=== PATIENT | male | born 1960 | race Caucasian/White ===

== ENCOUNTER 2016-12-29 09:11 | Day surgery (SDC) | payer OTHER ==
[2016-12-23 11:25] VITALS: BMI 30.5
[2016-12-29 09:26] LABS: BASOPHIL 1.3 % (0-2.0); EOSINOPHIL 8.1 % (0-4.5); MCH 32.9 pg (25.7-33.7); MCHC 34.9 g/dl (32.0-35.9); MEAN CELL VOLUME 94.3 fl (80-96); NEUTROPHILS 44.6 % (42.8-82.8); PLATELET COUNT 184 K/MM3 (134-434); WHITE BLOOD COUNT 5.9 K/mm3 (4.0-10.0)
== END 2016-12-29 09:45 | disposition home or self-care (01) ==
LOC: JRADIR 09:11
PROVIDERS: ATTEND Surgery
PROC: 0BB48ZX Excision of Right Upper Lobe Bronchus, Via Natural or Artificial Opening Endoscopic, Diagnostic (ICD-10-PCS; principal; 2016-12-29)
DX: Z53.8 Procedure and treatment not carried out for other reasons (principal)
CPT/HCPCS: 36415; 85025; 85610

== ENCOUNTER 2017-01-29 08:18 | Day surgery (SDC) | payer OTHER ==
[2017-01-27 15:14] VITALS: BMI 29.5
[2017-01-29 09:13] LABS: INR 0.96 (0.82-1.09); PROTHROMBIN TIME (PATIENT) 10.9 SEC (9.98-11.88)
[2017-01-29 09:26] VITALS: TEMP 97.7
[2017-01-29 15:08] VITALS: BP 139/76; PULSE 85
== END 2017-01-29 15:51 | disposition home or self-care (01) ==
LOC: JRADIR 08:18
PROVIDERS: ATTEND Surgery
PROC: 0BBC3ZX Excision of Right Upper Lung Lobe, Percutaneous Approach, Diagnostic (ICD-10-PCS; principal; 2017-01-29)
DX: D38.1 Neoplasm of uncertain behavior of trachea, bronchus and lung (principal)
CPT/HCPCS: 36415; 71010-TC; 76098-TC; 77012-TC; 85610; 87899

== ENCOUNTER 2017-02-11 09:09 | Inpatient (IN) | payer OTHER ==
[2017-02-11 09:15] VITALS: BMI 27.8
--- NOTE | 2017-02-11 09:50 | PDOC ---
History of Present Illness <Kevin Cerrato - Last Filed: 02/11/17 11:17> - History of Present Illness Initial Comments: 02/11/17 10:14 The patient is a 56 year old male, current smoker, with a significant past medical history of Right lung CA (s/p biopsy with Dr. Gilmore last week), CAD s /p stents x2, hypertension, hyperlipidemia, gout, who presents to the emergency department for pre-operative admission after receiving a call from Dr. Gilmore instructing him to come to the ED. The patient reports increased cough and sputum production. He reports a pain to his throat and tongue. The patient had a PET Scan in July 2016 revealing a lesion to the left of his posterior oropharynx. As per Dr. Gilmore, the patient also had a recent liver ultrasound. He denies chest pain, shortness of breath, headache and dizziness. He denies fever, chills, nausea, vomit, diarrhea and constipation. He denies dysuria, frequency, urgency and hematuria. Allergies: NKDA Past surgical history: right THR, Right lung biopsy Social history: frequent ETOH, current tobacco use PCP: Dr. Naya Chiang <Fransisca Espinoza - Last Filed: 02/11/17 12:30> - General Chief Complaint: Respiratory Stated Complaint: PRE-OP Time Seen by Provider: 02/11/17 09:49 Past History - Past Medical History Cardiac Disorders: Yes (CAD) COPD: Yes GI Disorders: Yes (h/o GI Bleed) Disorders: No HTN: Yes Hypercholesterolemia: Yes Liver Disease: No Psychiatric Problems: Yes (DEPRESSION, ANXIETY) Thyroid Disease: No - Surgical History Cardiac Surgery: Yes (cardiac stents ~ 2015) Orthopedic Surgery: Yes (RIGHT HIP REPLACEMENT) - Suicide/Smoking/Psychosocial Hx Smoking History: Current every day smoker Have you smoked in the past 12 months: Yes Number of Cigarettes Smoked Daily: 6 If you are a former smoker, when did you quit?: 6 Information on smoking cessation initiated: Yes 'Breaking Loose' booklet given: 02/11/17 Hx Alcohol Use: Yes (SOCIAL) Drug/Substance Use Hx: No Substance Use Type: None <Kevin Cerrato - Last Filed: 02/11/17 11:17> <Fransisca Espinoza - Last Filed: 02/11/17 12:30> - Past Medical History Allergies/Adverse Reactions: Allergies Allergy/AdvReac Type Severity Reaction Status Date / Time No Known Drug Allergies Allergy Verified 02/11/17 09:15 Home Medications: Ambulatory Orders Amlodipine Besylate 10 mg PO DAILY 12/23/16 Atorvastatin Ca [Lipitor] 10 mg PO HS 12/23/16 Buspirone HCl 30 mg PO BID 12/23/16 Gabapentin 800 mg PO BID 12/23/16 Quetiapine Fumarate "Xr" [Seroquel Xr -] 300 mg PO ACDIN 12/23/16 Sertraline HCl [Zoloft] 200 mg PO ACDIN 12/23/16 Cholecalciferol (Vitamin D3) [Vitamin D3] 2,000 unit PO DAILY 01/02/17 Folic Acid 1 mg PO DAILY 01/02/17 Review of Systems - Review of Systems Able to Perform ROS?: Yes Comments:: 02/11/17 10:15 GENERAL/CONSTITUTIONAL: No fever or chills. No weakness. HEAD, EYES, EARS, NOSE AND THROAT: No change in vision. No ear pain or discharge. No sore throat. CARDIOVASCULAR: No chest pain or shortness of breath. RESPIRATORY: (+) increased cough ad sputum production, No Sob, wheezing, or hemoptysis. GASTROINTESTINAL: No nausea, vomiting, diarrhea or constipation. GENITOURINARY: No dysuria, frequency, or change in urination. MUSCULOSKELETAL: No joint or muscle swelling or pain. No neck or back pain. SKIN: No rash NEUROLOGIC: No headache, vertigo, loss of consciousness, or change in strength/ sensation. ENDOCRINE: No increased thirst. No abnormal weight change. HEMATOLOGIC/LYMPHATIC: No anemia, easy bleeding, or history of blood clots. ALLERGIC/IMMUNOLOGIC: No hives or skin allergy. <Fransisca Espinoza - Last Filed: 02/11/17 12:30> *Physical Exam - Vital Signs Last Vital Signs Temp Pulse Resp BP Pulse Ox 98.0 F 97 H 20 117/79 95 02/11/17 09:12 02/11/17 09:12 02/11/17 09:12 02/11/17 09:12 02/11/17 09:12 <Kevin Cerrato - Last Filed: 02/11/17 11:17> - Vital Signs Last Vital Signs Temp Pulse Resp BP Pulse Ox 98.0 F 97 H 20 117/79 95 02/11/17 09:12 02/11/17 09:12 02/11/17 09:12 02/11/17 09:12 02/11/17 09:12 - Physical Exam Comments: 02/11/17 10:28 GENERAL: Awake, alert, and fully oriented, in no acute distress HEAD: No signs of trauma EYES: PERRLA, EOMI, sclera anicteric, conjunctiva clear ENT: Auricles normal inspection, hearing grossly normal, nares patent, oropharynx clear without exudates. Moist mucosa NECK: Normal ROM, supple, no lymphadenopathy, JVD, or masses LUNGS: Breath sounds equal, clear to auscultation bilaterally. No wheezes, and no crackles HEART: Regular rate and rhythm, normal S1 and S2, no murmurs, rubs or gallops ABDOMEN: Soft, nontender, normoactive bowel sounds. No guarding, no rebound. No masses EXTREMITIES: Normal range of motion, no edema. No clubbing or cyanosis. No cords, erythema, or tenderness NEUROLOGICAL: Cranial nerves II through XII grossly intact. Normal speech, normal gait SKIN: Warm, Dry, normal turgor, no rashes or lesions noted. <Fransisca Espinoza - Last Filed: 02/11/17 12:30> Heart Score/ECG Review #1 ECG reviewed & interpreted by me at: 10:40 General ECG Interpretation: Sinus Rhythm, Normal Rate <Fransisca Espinoza - Last Filed: 02/11/17 12:30> ED Treatment Course - LABORATORY CBC & Chemistry Diagram: 02/11/17 10:24 02/11/17 10:24 <Kevin Cerrato - Last Filed: 02/11/17 11:17> - LABORATORY CBC & Chemistry Diagram: 02/11/17 10:24 02/11/17 10:24 - RADIOLOGY Radiograph Interpretation: EXAM#: TYPE/EXAM: RESULT: [id number] RAD/CHEST X-RAY PORTABLE* History of lung cancer Portable chest x-ray, AP sitting Since prior chest x-ray dated 01/29/2017, the cardiac silhouette remains within normal limits insize. A faint round masslike densities again seen in the right upper lobe compatible with previously described lesion on prior CT scan of the chest dated 02/09/2017. The rest of the lung is clear. Old right rib fractures again noted. IMPRESSION: No significant interval change or acute lung disease is present. Round opacity/mass in the right upper lobe again seen. Reported By: Loi Chawla MD 02/11/17 1049 <Fransisca Espinoza - Last Filed: 02/11/17 12:30> Medical Decision Making - Medical Decision Making 02/11/17 10:00 Dr. Jose Gilmore was called at the office and the patient's case was discussed at length. Dr. Gilmore requests : Dr. Mcnair for admission who has been made aware of this patient's case prior to patient arrival. Dr. Jose F Chirinos for hematology/oncology ([phone]) Dr. Fabio Bledsoe for ENT? surgery ([phone]) Dr. Gilmore requests the ledger clerk on-call for [facility] today - Dr. Cerna ([phone]) 02/11/17 10:46 Pt's case discussed with Dr. Murillo taking report for Dr. Mcnair. Dr. Murillo will relay the information to Dr. Mcnair and call back with updates and any other studies that should be performed for this patient at this time. 02/11/17 12:28 Dr. Bledsoe called the ED and The patient's case was discussed at length. Dr. Bledsoe has put the patient on schedule for laryngoscopy and biopsy of oral pharyngeal lesion for this 02/13/17. <Fransisca Espinoza - Last Filed: 02/11/17 12:30> *DC/Admit/Observation/Transfer - Discharge Dispostion Admit: Yes - Attestations Physician Attestion: 02/11/17 09:49 I, Dr. Kevin Cerrato, attest that this document has been prepared under my direction and personally reviewed by me in its entirety. I further attest, that it accurately reflects all work, treatment, procedures and medical decision -making performed by me. <Kevin Cerrato - Last Filed: 02/11/17 11:17> - Attestations Scribe Attestion: 02/11/17 10:00 Documentation prepared by Fransisca Espinoza, acting as manager medical affairs for Kevin Cerrato DO <Fransisca Espinoza - Last Filed: 02/11/17 12:30> Diagnosis at time of Disposition: Metastatic disease, Cough, Lesion of tongue Lung cancer Qualifiers: Laterality: unspecified laterality Lung location: overlapping sites Qualified Code(s): C34.80 - Malignant neoplasm of overlapping sites of unspecified bronchus and lung COPD (chronic obstructive pulmonary disease) Qualifiers: COPD type: unspecified COPD Qualified Code(s): J44.9 - Chronic obstructive pulmonary disease, unspecified Alcohol dependence Qualifiers: Substance use status: with intoxication Complication of substance-induced condition: with unspecified complication Qualified Code(s): F10.229 - Alcohol dependence with intoxication, unspecified Alcohol intoxication Qualifiers: Complication of substance-induced condition: with unspecified complication Qualified Code(s): F10.929 - Alcohol use, unspecified with intoxication, unspecified - Discharge Dispostion Condition at time of disposition: Unchanged/Unknown
[2017-02-11 10:38] LABS: BASO % 1.1 % (0-2.0); EOS % 8.1 % (0-4.5); MCH 32.7 pg (25.7-33.7); MCHC 34.6 g/dl (32.0-35.9); MEAN CELL VOLUME 94.3 fl (80-96); MEAN PLT VOLUME 8.1 fl (7.5-11.1); NEUT % 48.2 % (42.8-82.8); PLATELET COUNT 197 K/MM3 (134-434); RDW 12.9 % (11.9-15.9); WHITE BLOOD COUNT 6.1 K/mm3 (4.0-10.0)
[2017-02-11 10:46] LABS: URINE APPEARANCE CLEAR; URINE BILIRUBIN NEGATIVE (NEGATIVE); URINE BLOOD NEGATIVE (NEGATIVE); URINE COLOR YELLOW; URINE GLUCOSE (UA) NEGATIVE (NEGATIVE); URINE KETONE NEGATIVE (NEGATIVE); URINE NITRITE NEGATIVE (NEGATIVE); URINE PROTEIN NEGATIVE (NEGATIVE); URINE UROBILINOGEN NEGATIVE mg/dL (0.2-1.0)
[2017-02-11 10:57] LABS: INR 1.02 (0.82-1.09); PROTHROMBIN TIME (PATIENT) 11.5 SEC (9.98-11.88)
[2017-02-11 11:06] LABS: ALBUMIN 3.3 g/dl (3.4-5.0); ANION GAP 10 (8-16); BILIRUBIN,DIRECT 0.2 mg/dL (0.0-0.2); BILIRUBIN,TOTAL 0.4 mg/dL (0.2-1.0); CO2 26 mmol/L (21-32); CREATININE 0.9 mg/dL (0.7-1.3); GLUCOSE,RANDOM 96 mg/dL (74-106); MAGNESIUM 1.4 mg/dL (1.8-2.4); PHOSPHOROUS 3.8 mg/dL (2.5-4.9); SGOT/AST 79 U/L (15-37); SGPT/ALT 49 U/L (12-78); TOT PROT 7.4 g/dl (6.4-8.2)
[2017-02-11 11:07] LABS: ALK PHOS 58 U/L (45-117); CPK 71 IU/L (39-308); TROPONIN I < 0.02 ng/ml (0.00-0.05)
[2017-02-11 11:12] LABS: URINE MARIJUANA THC NEGATIVE ng/ml (CUTOFF=50)
[2017-02-11] MEDS ORDERED: FOLIC ACID INJECTION - 1 MG, THIAMINE HCL 100 MG, MULTIVIT INJECTION ADULT 10 ML in SOD... IVPB ONE (11:12)
--- NOTE | 2017-02-11 11:59 | PN ---
Teaching Attending Note Name of Resident: Marcelo Murillo ATTENDING PHYSICIAN STATEMENT I saw and evaluated the patient. I reviewed the resident's note and discussed the case with the resident. I agree with the resident's findings and plan as documented. SUBJECTIVE: This is a 56 year old man recently diagnosed with lung cancer and a history of CAD with stents, HTN, hyperlipidemia, alcohol abuse, anxiety who comes to the ER today with worsening productive cough. He denies fever, chills, SOB. On PET he was found to have a supraglottic lesion. OBJECTIVE: Vital Signs Period Temp Pulse Resp BP Sys/Clay Pulse Ox Last 24 Hr 98.0 F-98.0 F 68-97 18-20 117-132/79-85 93-95 HEART: S1S2, RRR LUNGS: Clear ABDOMEN: Soft, non-tender, non-distended, normal BS EXTREMITIES: No edema Home Medications Medication Instructions Recorded Amlodipine Besylate 10 mg PO DAILY 12/23/16 Atorvastatin Ca [Lipitor] 10 mg PO HS 12/23/16 Buspirone HCl 30 mg PO BID 12/23/16 Gabapentin 800 mg PO BID 12/23/16 Quetiapine Fumarate "Xr" [Seroquel 300 mg PO ACDIN 12/23/16 Xr -] Sertraline HCl [Zoloft] 200 mg PO ACDIN 12/23/16 Cholecalciferol (Vitamin D3) 2,000 unit PO DAILY 01/02/17 [Vitamin D3] Folic Acid 1 mg PO DAILY 01/02/17 Laboratory Tests 02/11/17 02/11/17 02/11/17 10:15 10:15 10:24 WBC 6.1 RBC 4.06 Hgb 13.3 Hct 38.3 MCV 94.3 MCH 32.7 MCHC 34.6 RDW 12.9 Plt Count 197 MPV 8.1 D Neutrophils % 48.2 Lymphocytes % 33.6 Monocytes % 9.0 Eosinophils % 8.1 H Basophils % 1.1 PT with INR INR Sodium Potassium Chloride Carbon Dioxide Anion Gap BUN Creatinine Creat Clearance w eGFR Random Glucose Lactic Acid Calcium Phosphorus Magnesium Total Bilirubin Direct Bilirubin AST ALT Alkaline Phosphatase Ammonia Creatine Kinase Troponin I Total Protein Albumin Lipase Urine Color Yellow Urine Appearance Clear Urine pH 6.0 Urine Protein Negative Urine Glucose (UA) Negative Urine Ketones Negative Urine Blood Negative Urine Nitrite Negative Urine Bilirubin Negative Urine Urobilinogen Negative Opiates Screen Negative Methadone Screen Negative Barbiturate Screen Negative Phencyclidine Screen Negative Ur Amphetamines Screen Negative MDMA (Ecstasy) Screen Negative Benzodiazepines Screen Positive Cocaine Screen Negative U Marijuana (THC) Screen Negative Alcohol, Quantitative 02/11/17 02/11/17 02/11/17 10:24 10:24 10:24 WBC RBC Hgb Hct MCV MCH MCHC RDW Plt Count MPV Neutrophils % Lymphocytes % Monocytes % Eosinophils % Basophils % PT with INR 11.50 INR 1.02 Sodium 140 Potassium 3.2 L Chloride 104 Carbon Dioxide 26 Anion Gap 10 BUN 9 Creatinine 0.9 Creat Clearance w eGFR > 60 Random Glucose 96 Lactic Acid Calcium 8.0 L Phosphorus 3.8 Magnesium 1.4 L Total Bilirubin 0.4 Direct Bilirubin 0.2 AST 79 H ALT 49 Alkaline Phosphatase 58 Ammonia Creatine Kinase 71 Troponin I < 0.02 Total Protein 7.4 Albumin 3.3 L Lipase 124 Urine Color Urine Appearance Urine pH Urine Protein Urine Glucose (UA) Urine Ketones Urine Blood Urine Nitrite Urine Bilirubin Urine Urobilinogen Opiates Screen Methadone Screen Barbiturate Screen Phencyclidine Screen Ur Amphetamines Screen MDMA (Ecstasy) Screen Benzodiazepines Screen Cocaine Screen U Marijuana (THC) Screen Alcohol, Quantitative 276.8 H* 02/11/17 02/11/17 10:24 10:24 WBC RBC Hgb Hct MCV MCH MCHC RDW Plt Count MPV Neutrophils % Lymphocytes % Monocytes % Eosinophils % Basophils % PT with INR INR Sodium Potassium Chloride Carbon Dioxide Anion Gap BUN Creatinine Creat Clearance w eGFR Random Glucose Lactic Acid 2.0 Calcium Phosphorus Magnesium Total Bilirubin Direct Bilirubin AST ALT Alkaline Phosphatase Ammonia 21 Creatine Kinase Troponin I Total Protein Albumin Lipase Urine Color Urine Appearance Urine pH Urine Protein Urine Glucose (UA) Urine Ketones Urine Blood Urine Nitrite Urine Bilirubin Urine Urobilinogen Opiates Screen Methadone Screen Barbiturate Screen Phencyclidine Screen Ur Amphetamines Screen MDMA (Ecstasy) Screen Benzodiazepines Screen Cocaine Screen U Marijuana (THC) Screen Alcohol, Quantitative ASSESSMENT AND PLAN: This is a 56 year old man with a history of recently diagnosed with lung cancer , CAD with stents, HTN, hyperlipidemia, alcohol abuse, depression, anxiety who presented to the ER today with worsening cough. 1. Hypokalemia - Replete potassium 2. Hypomagnesemia - Supplement magnesium 3. CAD, history of stents - Hold aspirin in preparation for surgery 4. HTN - Continue Norvasc 5. Hyperlipidemia - Continue Lipitor 6. Alcohol intoxication - Start Librium detox 7. Continuous alcohol dependence - Thiamine, multivitamin, folic acid 8. Adenocarcinoma of lung - 9. Supraglottic mass - 10. Depression/anxiety - Continue SeroquelMaria Zoloft
--- NOTE | 2017-02-11 13:23 | EKG ---
Test Reason : Blood Pressure : / mmHG Vent. Rate : 072 BPM Atrial Rate : 072 BPM P-R Int : 152 ms QRS Dur : 086 ms QT Int : 410 ms P-R-T Axes : 020 -12 016 degrees QTc Int : 448 ms NORMAL SINUS RHYTHM CANNOT RULE OUT ANTERIOR INFARCT , AGE UNDETERMINED ABNORMAL ECG NO PREVIOUS ECGS AVAILABLE Confirmed by BRAD COLE MD ([id number]) on 02/11/2017 1:23:02 PM Referred By: Confirmed By:BRAD COLE MD
--- NOTE | 2017-02-11 14:45 | CONSULT ---
Consult Detox [facility] Reason for Current Admission/Consult: alcohol use disorder evaluation Referred by:: dr. Cerrato - History History of Present Illness: 56 yo m admit w Ca lung, multiple medical comorbidities now here for lung mass work up, h/o smoking and chronic alcoholism, found multiple bottles of alcohol on him in ED as per ED staff and an elevated HELEN. Patient denies daily use of alcohol, seizures or DTS but agrees to need for librium detox. says he was recently d/c from treatment, unreliable historian - History Source History Provided By: Patient, Medical Record, Caregiver Limitations to Obtaining History: No Limitations - Alcohol/Substance Use Hx Alcohol Use: Yes (SOCIAL) Hx Substance Use Treatment: Yes - Current Drug/Alcohol Use Alcohol Route: Oral Frequency: Daily Amount used: 1-2 pints? patient not reliable historian Age of first use: 19 - Significant Medical Findings: patient alert and oriented, no signs of withdrawal at this time, elevated HELEN CIWA Score - CIWA Score Nausea/Vomitin-No Nausea/No Vomiting Muscle Tremors: None Anxiety: 1-Mildly Anxious Agitation: 0-Normal Activity Paroxysmal Sweats: No Perspiration Orientation: 0-Oriented Tacttile Disturbances: 0-None Auditory Disturbances: 0-None Visual Disturbances: 0-None Headache: 0-None Present CIWA-Ar Total Score: 1 Assessment Plan - Diagnosis (1) Alcohol intoxication Status: Acute Qualifiers: Complication of substance-induced condition: with unspecified complication Qualified Code(s): F10.929 - Alcohol use, unspecified with intoxication, unspecified; F10.929 - Alcohol use, unspecified with intoxication, unspecified; F10.929 - Alcohol use, unspecified with intoxication, unspecified (2) Alcohol dependence Status: Acute Qualifiers: Substance use status: with intoxication Complication of substance- induced condition: with unspecified complication Qualified Code(s): F10.229 - Alcohol dependence with intoxication, unspecified; F10.229 - Alcohol dependence with intoxication, unspecified; F10.229 - Alcohol dependence with intoxication, unspecified (3) Nicotine dependence Status: Acute (4) Lung cancer Status: Acute Qualifiers: Laterality: unspecified laterality Lung location: overlapping sites Qualified Code(s): C34.80 - Malignant neoplasm of overlapping sites of unspecified bronchus and lung; C34.80 - Malignant neoplasm of overlapping sites of unspecified bronchus and lung; C34.80 - Malignant neoplasm of overlapping sites of unspecified bronchus and lung; C34.80 - Malignant neoplasm of overlapping sites of unspecified bronchus and lung (5) COPD (chronic obstructive pulmonary disease) Status: Acute Qualifiers: COPD type: unspecified COPD Qualified Code(s): J44.9 - Chronic obstructive pulmonary disease, unspecified; J44.9 - Chronic obstructive pulmonary disease, unspecified; J44.9 - Chronic obstructive pulmonary disease, unspecified; J44.9 - Chronic obstructive pulmonary disease, unspecified - Plan Plan: Patient with elevated HELEN on admission, no signs of intoxication or withdrawal but he will be at high risk, would start librium detox this evening. Please call with any questions: [phone] - Medication Detox Regimen/Protocol: Librium
--- NOTE | 2017-02-11 14:51 | CONSULT ---
Consult - text type - Consultation Consultation Note: Thoracic Surgery: Pt known to me. Newly diagnosed RUL lung cancer. Other issues: 1. PET avid supraglottic lesion: Dr. Bledsoe to see. 2. CAD: Cardiology to see and optimize for lung resection. 3. ETOH abuse: detox consultation. 4. Oncology also to follow. Possible scope on Thursday. If bx proven lesion, will have to formulate plan of treatment with other physicians. If no lesion, would consider lung surgery Thursday. Appreciate all consultations and coordination of care through Medical team. Thank you.
--- NOTE | 2017-02-11 15:25 | CON.CARD ---
Consult Consult Specialty:: Cardiology Referred by:: Deirdre Reason for Consultation:: CAD. Preop - History of Present Illness Chief Complaint: Lung mass History of Present Illness: 56 year old male with a pmhx of tobacco use, htn, hld, gout, CAD s/p stents x2 mRCA, and h/o right lung CA sent to ER by Dr. Gilmore for lung mass work up. Plan is for Patient denies any chest pain, dyspnea, or palpitations. +cough and sputum. No f/c/s. No n/v/d. - History Source History Provided By: Patient, Medical Record - Past Medical History Cardio/Vascular: Yes: CAD, HTN, Hyperlipdemia Heme/Onc: Yes: Cancer - Alcohol/Substance Use Hx Alcohol Use: Yes (SOCIAL) - Smoking History Smoking history: Current every day smoker Have you smoked in the past 12 months: Yes Aproximately how many cigarettes per day: 6 If you are a former smoker, when did you quit?: 6 Home Medications - Allergies Allergies/Adverse Reactions: Allergies Allergy/AdvReac Type Severity Reaction Status Date / Time No Known Drug Allergies Allergy Verified 02/11/17 09:15 - Home Medications Home Medications: Ambulatory Orders Amlodipine Besylate 10 mg PO DAILY 12/23/16 Atorvastatin Ca [Lipitor] 10 mg PO HS 12/23/16 Buspirone HCl 30 mg PO BID 12/23/16 Gabapentin 800 mg PO BID 12/23/16 Quetiapine Fumarate "Xr" [Seroquel Xr -] 300 mg PO ACDIN 12/23/16 Sertraline HCl [Zoloft] 200 mg PO ACDIN 12/23/16 Cholecalciferol (Vitamin D3) [Vitamin D3] 2,000 unit PO DAILY 01/02/17 Folic Acid 1 mg PO DAILY 01/02/17 Vital Signs: Vital Signs Temperature 98.0 F 02/11/17 11:44 Pulse Rate 68 02/11/17 11:44 Respiratory Rate 18 02/11/17 11:44 Blood Pressure 132/85 02/11/17 11:44 O2 Sat by Pulse Oximetry (%) 93 L 02/11/17 11:44 Constitutional: Yes: No Distress Neck: Yes: Supple Respiratory: Yes: CTA Bilaterally Gastrointestinal: Yes: Normal Bowel Sounds, Soft Cardiovascular: Yes: Regular Rate and Rhythm JVD: No Carotid Bruit: No PMI: Non-Displaced Heart Sounds: Yes: S1, S2 Murmur: No: Systolic Murmur Edema: No - Other Data Labs, Other Data: INR, PTT INR 1.02 (0.82-1.09) 02/11/17 10:24 Imaging - Results Chest X-ray: Report Reviewed EKG: Image Reviewed Assessment/Plan 56 year old male with a pmhx of tobacco use, htn, hld, gout, CAD s/p stents x2, and h/o right lung CA sent to ER by Dr. Gilmore for lung mass work up. Plan is for Patient denies any chest pain, dyspnea, or palpitations. +cough and sputum. No f/c/s. No n/v/d. EKG: sinus rhythm with nl axis and no acute st changes. 1) Lung mass Planned for possible scope on Thursday and will than discuss further intervention and possibility of surgery. 2) CAD h/o stents to mRCA Asymptomatic with good exercise tolerance On statins No acute ekg changes Aspirin was held already for procedure Would get echocardiogram
--- NOTE | 2017-02-11 15:41 | HP ---
Admitting History and Physical - Primary Care Physician PCP: Dr. Naya Chiang - Admission Chief Complaint: Worsening cough and sputum production History of Present Illness: 56 yo M h/o R lung CA, CAD s/p 2 stents, HTN, HLD sent by his surgeon (Dr. Gilmore) for suspected new lung cancer. Patient c/o worsening cough, throat pain with increasing sputum production recently. PET scan in 07/2016 reveal a lesion located to L of posterior oropharynx. Denies chest pain, sob, fever, chills, weight change, urinary or bowel symptoms. History Source: Patient Limitations to Obtaining History: No Limitations - Past Medical History Cardiovascular: Yes: CAD, HTN, Hyperlipdemia Heme/Onc: Yes: Cancer - Smoking History Smoking history: Current every day smoker Have you smoked in the past 12 months: Yes Aproximately how many cigarettes per day: 6 If you are a former smoker, when did you quit?: 6 - Alcohol/Substance Use Hx Alcohol Use: Yes (SOCIAL) Home Medications - Allergies Allergies/Adverse Reactions: Allergies Allergy/AdvReac Type Severity Reaction Status Date / Time No Known Drug Allergies Allergy Verified 02/11/17 09:15 - Home Medications Home Medications: Ambulatory Orders Amlodipine Besylate 10 mg PO DAILY 12/23/16 Atorvastatin Ca [Lipitor] 10 mg PO HS 12/23/16 Buspirone HCl 30 mg PO BID 12/23/16 Gabapentin 800 mg PO BID 12/23/16 Quetiapine Fumarate "Xr" [Seroquel Xr -] 300 mg PO ACDIN 12/23/16 Sertraline HCl [Zoloft] 200 mg PO ACDIN 12/23/16 Cholecalciferol (Vitamin D3) [Vitamin D3] 2,000 unit PO DAILY 01/02/17 Folic Acid 1 mg PO DAILY 01/02/17 Review of Systems - Review of Systems Constitutional: reports: No Symptoms Eyes: reports: No Symptoms HENT: reports: Throat Pain Neck: reports: No Symptoms Cardiovascular: denies: Chest Pain Respiratory: reports: Cough. denies: SOB Gastrointestinal: reports: No Symptoms Genitourinary: reports: No Symptoms Integumentary: reports: No Symptoms Neurological: reports: No Symptoms Physical Examination Vital Signs: Vital Signs Temperature 98.0 F 02/11/17 11:44 Pulse Rate 68 02/11/17 11:44 Respiratory Rate 18 02/11/17 11:44 Blood Pressure 132/85 02/11/17 11:44 O2 Sat by Pulse Oximetry (%) 93 L 02/11/17 11:44 Constitutional: Yes: No Distress, Calm, Obese Eyes: Yes: WNL HENT: Yes: Atraumatic, Normocephalic Neck: Yes: WNL Cardiovascular: Yes: Regular Rate and Rhythm, S1, S2 Respiratory: Yes: Cough, Wheezes (L upper lobe) Gastrointestinal: Yes: Abdomen, Obese, Distention, Hepatomegaly Extremities: No: Calf Tenderness, Erythema Edema: No Imaging - Results Chest X-ray: Report Reviewed, Image Reviewed X-ray: Report Reviewed, Image Reviewed Cat Scan: Report Reviewed, Image Reviewed Ultrasound: Report Reviewed, Image Reviewed EKG: Report Reviewed, Image Reviewed Assessment/Plan 56 yo M h/o Right lung CA admitted to med-surg in preparation for lung biopsy and possible lung surgery. RUL lung cancer - Bx planned with possible surgery next thursday - Dr. Gilmore on the case Supraglottic lesion - ENT consult ETOH abuse - Banana bag x 1 + standing fluid - PO thiamine and folic acid - Started on librium protocol CAD s/p stent - Stable - ASA held - f/u ECHO FEN - Cont. IVF @ 100ml/hr - Hypokalemia, MgSO4 IV then KCl 40meq PO - Na+ controlled diet Prophylaxis - DVT: lovenox - GI: not indicated Dispo - Med-surg admission [facility] Medicine PGY2 pager: [phone] Visit type - Emergency Visit Emergency Visit: Yes ED Registration Date: 02/11/17 Care time: The patient presented to the Emergency Department on the above date and was hospitalized for further evaluation of their emergent condition. - New Patient This patient is new to me today: Yes Date on this admission: 02/12/17 - Critical Care Critical Care patient: No
[2017-02-11] MEDS ORDERED: chlordiazePOXIDE HCL 25 MG CAPSULE PO PRN (15:59)
--- NOTE | 2017-02-11 17:01 | CONSULT ---
Consult Consult Specialty:: Oncology - History of Present Illness History of Present Illness: 56 yo M h/o R lung CA, CAD s/p 2 stents, HTN, HLD sent by Dr. Gilmore for new diagnosis of RUL adenoca, and PET avid supraglottic mass. Patient has social issues . Patient c/o worsening cough, throat pain with increasing sputum production. PET scan in 07/2016 reveal a lesion located to L of posterior oropharynx. Patient seen and examined in the ER. - History Source History Provided By: Patient, Medical Record - Past Medical History Cardio/Vascular: Yes: CAD, HTN, Hyperlipdemia - Alcohol/Substance Use Hx Alcohol Use: Yes (SOCIAL) - Smoking History Smoking history: Current every day smoker Have you smoked in the past 12 months: Yes Aproximately how many cigarettes per day: 6 If you are a former smoker, when did you quit?: 6 Home Medications - Allergies Allergies/Adverse Reactions: Allergies Allergy/AdvReac Type Severity Reaction Status Date / Time No Known Drug Allergies Allergy Verified 02/11/17 09:15 - Home Medications Home Medications: Ambulatory Orders Amlodipine Besylate 10 mg PO DAILY 12/23/16 Atorvastatin Ca [Lipitor] 10 mg PO HS 12/23/16 Buspirone HCl 30 mg PO BID 12/23/16 Gabapentin 800 mg PO BID 12/23/16 Quetiapine Fumarate "Xr" [Seroquel Xr -] 300 mg PO ACDIN 12/23/16 Sertraline HCl [Zoloft] 200 mg PO ACDIN 12/23/16 Cholecalciferol (Vitamin D3) [Vitamin D3] 2,000 unit PO DAILY 01/02/17 Folic Acid 1 mg PO DAILY 01/02/17 Review of Systems - Review of Systems Constitutional: denies: Loss of Appetite, Malaise, Night Sweats Eyes: denies: Blind Spots HENT: denies: Difficult Swallowing Neck: denies: Decreased ROM, Lumps, Pain on Movement Respiratory: denies: Cough, Exercise Intolerance Gastrointestinal: denies: Abdominal Pain, Bloating Genitourinary: denies: Burning Neurological: reports: No Symptoms Hematology/Lymphatic: reports: No Symptoms Physical Exam Vital Signs: Vital Signs Temperature 98.0 F 02/11/17 15:58 Pulse Rate 70 02/11/17 15:58 Respiratory Rate 18 10/25/17 15:58 Blood Pressure 129/73 10/25/17 15:58 O2 Sat by Pulse Oximetry (%) 97 02/11/17 15:58 Constitutional: Yes: No Distress, Calm Eyes: Yes: Conjunctiva Clear HENT: Yes: Atraumatic, Normocephalic, Other (alcohol odor+) Neck: Yes: Supple, Trachea Midline Cardiovascular: Yes: Regular Rate and Rhythm Respiratory: Yes: Regular, CTA Bilaterally Gastrointestinal: Yes: Normal Bowel Sounds, Soft, Abdomen, Obese Edema: No Assessment/Plan Newly diagnosed RUL adenocarcinoma PET avid Supraglottic lesion Alcohol abuse Ex-smoker -all consults appreciated -ENT to f/u -likely two primaries vs mets, discussed in tumor board -at risk for alcohol withdrawal, needs hydration. -will follow
[2017-02-11 17:21] LABS: URINE LEUK ESTERASE Negative (NEGATIVE)
[2017-02-11] MEDS ORDERED: chlordiazePOXIDE HCL 25 MG CAPSULE ONE (17:30)
[2017-02-11] MEDS: chlordiazePOXIDE HCL 25 MG CAPSULE PO SCH ×2 (17:31→22:37)
[2017-02-11] MEDS ORDERED: amLODIPine BESYLATE 5 MG TABLET (FP) ONE (17:47)
[2017-02-11] MEDS: amLODIPine BESYLATE 10 MG TABLET (FP) PO SCH (17:54)
[2017-02-11] MEDS ORDERED: MAGNESIUM SULF 50% (8.12 MEQ/2 ML-1 GM VIAL) IVPB ONE (18:04)
[2017-02-11] MEDS: CHOLECALCIFEROL (VITAMIN D3) 1,000 UNIT TABLET (FP) PO SCH (18:49)
[2017-02-11] MEDS ORDERED: POTASSIUM CHLORIDE TABS 20 MEQ TABLET.ER (FP) PO ONE (20:00)
[2017-02-11] MEDS ORDERED: MAGNESIUM SULF 50% (8.12 MEQ/2 ML-1 GM VIAL) ONE (20:55)
[2017-02-11] MEDS: SODIUM CHLORIDE 1,000 ML IV SCH (21:04)
[2017-02-11] MEDS: ATORVASTATIN CA 10 MG TABLET (FP) PO SCH (21:05)
[2017-02-11] MEDS: GABAPENTIN 400 MG CAPSULE (FP) PO SCH (21:05)
[2017-02-11] MEDS ORDERED: HEPARIN NA (PORCINE) 5,000 UNITS/ML 1ML VIAL SQ SCH (22:00)
[2017-02-11] MEDS: busPIRone HCL 10 MG TABLET (FP) PO SCH (22:37)
[2017-02-12] MEDS: chlordiazePOXIDE HCL 25 MG CAPSULE PO SCH ×2 (06:05→10:43)
[2017-02-12 08:02] LABS: ANION GAP 10 (8-16); CALCIUM 7.8 mg/dL (8.5-10.1); CO2 27 mmol/L (21-32); CREATININE 0.7 mg/dL (0.7-1.3); GLUCOSE,RANDOM 105 mg/dL (74-106); MAGNESIUM 1.9 mg/dL (1.8-2.4); PHOSPHOROUS 2.4 mg/dL (2.5-4.9)
[2017-02-12] MEDS: SODIUM CHLORIDE 1,000 ML IV SCH ×2 (08:26→21:35)
[2017-02-12] MEDS ORDERED: FOLIC ACID 1 MG TABLET (FP) PO SCH (10:00)
[2017-02-12] MEDS ORDERED: PT OWN MED DRAWER 7, Y5N ONE ×3 (10:31→21:25)
[2017-02-12] MEDS: CHOLECALCIFEROL (VITAMIN D3) 1,000 UNIT TABLET (FP) PO SCH (10:42)
[2017-02-12] MEDS: THIAMINE HCL 100 MG TABLET (FP) PO SCH (10:42)
[2017-02-12] MEDS: FOLIC ACID 1 MG TABLET (FP) PO SCH (10:43)
[2017-02-12] MEDS: ENOXAPARIN NA (PORCINE) 40 MG/0.4 ML DISP.SYRIN SQ SCH (10:43)
[2017-02-12] MEDS: amLODIPine BESYLATE 10 MG TABLET (FP) PO SCH (10:43)
[2017-02-12] MEDS: busPIRone HCL 10 MG TABLET (FP) PO SCH ×2 (10:44→22:24)
[2017-02-12] MEDS ORDERED: POTASSIUM PHOSPHATE 20 MM in SODIUM CHLORIDE 250 ML IVPB ONE (11:00)
[2017-02-12] MEDS: GABAPENTIN 400 MG CAPSULE (FP) PO SCH ×2 (11:29→21:39)
[2017-02-12] MEDS: MULTIVITAMINS (DAILY MVI) TABLET (FP) PO SCH (12:45)
[2017-02-12] MEDS: MAGNESIUM OXIDE 400 MG TABLET (FP) PO SCH ×2 (12:45→21:40)
--- NOTE | 2017-02-12 14:32 | PN ---
Progress Note (short form) - Note Progress Note: Patient seen and examined Denies any complaints Last Vital Signs Temp Pulse Resp BP Pulse Ox 97.3 F L 71 20 142/90 98 02/12/17 14:07 02/12/17 14:07 02/12/17 14:07 02/12/17 14:07 02/12/17 11:42 Cor: RSR, No murmurs, No gallops Lungs: Clear to P&A Abd: Soft, Normal bowel sounds, No organomegaly Ext:No significant edema Skin: No rashes, Integument intact Abnormal Lab Results 02/12/17 06:00 Chloride 108 H Calcium 7.8 L Phosphorus 2.4 L D Active Medications Generic Name Dose Route Start Last Admin Trade Name Freq PRN Reason Stop Dose Admin Amlodipine Besylate 10 mg 02/11/17 17:30 02/12/17 10:43 Norvasc - PO 10 mg DAILY JUNIOR Administration Atorvastatin Calcium 10 mg 02/11/17 22:00 02/11/17 21:05 Lipitor - PO 10 mg HS JUNIOR Administration Buspirone HCl 30 mg 02/11/17 22:00 02/12/17 10:44 Buspar - PO 30 mg BID JUNIOR Administration Chlordiazepoxide HCl 25 mg 02/11/17 15:59 Librium - PO 02/14/17 15:58 Q4H PRN WITHDRAWAL(CONT SUBST) Chlordiazepoxide HCl 25 mg 02/12/17 17:00 Librium - PO 02/13/17 11:01 [id number] JUNIOR Chlordiazepoxide HCl 15 mg 02/13/17 17:00 Librium - PO 02/14/17 11:01 [id number] JUNIOR Cholecalciferol 2,000 unit 02/11/17 17:30 02/12/17 10:42 Vitamin D3 - PO 2,000 unit DAILY JUNIOR Administration Enoxaparin Sodium 40 mg 02/12/17 10:00 02/12/17 10:43 Lovenox - SQ 40 mg DAILY JUNIOR Administration Folic Acid 1 mg 02/12/17 10:00 02/12/17 10:43 Folic Acid - PO 1 mg DAILY JUNIOR Administration Gabapentin 800 mg 02/11/17 22:00 02/12/17 11:29 Neurontin - PO 800 mg BID JUNIOR Administration Sodium Chloride 1,000 mls @ 100 mls/hr 02/11/17 18:15 02/12/17 08:26 Normal Saline - IV 100 mls/hr ASDIR JUNIOR Administration Potassium Phosphate 20 mm/ 256.6667 mls @ 64.167 mls/hr 02/12/17 11:00 12:45 Sodium Chloride IVPB 02/12/17 14:59 64.167 mls/hr ONCE ONE Administration Magnesium Oxide 400 mg 02/12/17 12:00 02/12/17 12:45 Mag-Ox - PO 02/12/17 22:01 400 mg BID JUNIOR Administration Multivitamins/Minerals/Vitamin C 1 tab 02/12/17 12:00 02/12/17 12:45 Tab-A-Vit - PO 1 tab DAILY JUNIOR Administration Quetiapine Fumarate 300 mg 02/12/17 16:30 Seroquel Xr - PO ACDIN JUNIOR Sertraline HCl 200 mg 02/12/17 16:30 Zoloft - PO ACDIN JUNIOR Thiamine HCl 100 mg 02/12/17 10:00 02/12/17 10:42 Vitamin B1 - PO 100 mg DAILY JUNIOR Administration A/P 56 y/o patient with Newly diagnosed RUL adenocarcinoma PET avid Supraglottic lesion Alcohol abuse Ex-smoker -ENT to f/u -likely two primaries vs mets, discussed in tumor board -at risk for alcohol withdrawal, needs hydration. 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
--- NOTE | 2017-02-12 15:16 | PN ---
Progress Note, Physician Chief Complaint: No complaints today History of Present Illness: 56 year old male with a pmhx of tobacco use, htn, hld, gout, CAD s/p stents x2 mRCA, and h/o right lung CA sent to ER by Dr. Gilmore for lung mass work up. Plan is for Patient denies any chest pain, dyspnea, or palpitations. +cough and sputum. No f/c/s. No n/v/d. - Current Medication List Current Medications: Active Medications Amlodipine Besylate (Norvasc -) 10 mg PO DAILY [facility] Last Admin: 02/12/17 10:43 Dose: 10 mg Atorvastatin Calcium (Lipitor -) 10 mg PO HS [facility] Last Admin: 02/11/17 21:05 Dose: 10 mg Buspirone HCl (Buspar -) 30 mg PO BID [facility] Last Admin: 02/12/17 10:44 Dose: 30 mg Chlordiazepoxide HCl (Librium -) 25 mg PO Q4H PRN PRN Reason: WITHDRAWAL(CONT SUBST) Stop: 02/14/17 15:58 Chlordiazepoxide HCl (Librium -) 25 mg PO [id number] [facility] Stop: 02/13/17 11:01 Chlordiazepoxide HCl (Librium -) 15 mg PO [id number] [facility] Stop: 02/14/17 11:01 Cholecalciferol (Vitamin D3 -) 2,000 unit PO DAILY [facility] Last Admin: 02/12/17 10:42 Dose: 2,000 unit Enoxaparin Sodium (Lovenox -) 40 mg SQ DAILY [facility] Last Admin: 02/12/17 10:43 Dose: 40 mg Folic Acid (Folic Acid -) 1 mg PO DAILY [facility] Last Admin: 02/12/17 10:43 Dose: 1 mg Gabapentin (Neurontin -) 800 mg PO BID [facility] Last Admin: 02/12/17 11:29 Dose: 800 mg Sodium Chloride (Normal Saline -) 1,000 mls @ 100 mls/hr IV ASDIR [facility] Last Admin: 02/12/17 08:26 Dose: 100 mls/hr Magnesium Oxide (Mag-Ox -) 400 mg PO BID [facility] Stop: 02/12/17 22:01 Last Admin: 02/12/17 12:45 Dose: 400 mg Multivitamins/Minerals/Vitamin C (Tab-A-Vit -) 1 tab PO DAILY [facility] Last Admin: 02/12/17 12:45 Dose: 1 tab Quetiapine Fumarate (Seroquel Xr -) 300 mg PO ACDIN JUNIOR Sertraline HCl (Zoloft -) 200 mg PO ACDIN JUNIOR Thiamine HCl (Vitamin B1 -) 100 mg PO DAILY [facility] Last Admin: 02/12/17 10:42 Dose: 100 mg - Objective Vital Signs: Vital Signs Temperature 97.3 F L 02/12/17 14:07 Pulse Rate 71 02/12/17 14:07 Respiratory Rate 20 02/12/17 14:07 Blood Pressure 142/90 02/12/17 14:07 O2 Sat by Pulse Oximetry (%) 98 02/12/17 11:42 Constitutional: Yes: No Distress Neck: Yes: Supple Cardiovascular: Yes: Regular Rate and Rhythm, S1, S2. No: Murmur Respiratory: Yes: CTA Bilaterally Gastrointestinal: Yes: Normal Bowel Sounds, Soft Edema: No Labs: CBC, BMP 02/12/17 06:00 INR, PTT INR 1.02 (0.82-1.09) 02/11/17 10:24 Assessment/Plan 56 year old male with a pmhx of tobacco use, htn, hld, gout, CAD s/p stents x2, and h/o right lung CA sent to ER by Dr. Gilmore for lung mass work up as well as supraglotic lesion on PET scan Patient denies any chest pain, dyspnea, or palpitations. +cough and sputum. No f/c/s. No n/v/d. EKG: sinus rhythm with nl axis and no acute st changes. 1) Lung mass and supraglotic lesion on pet scan Planned for possible scope on Thursday and will than discuss further intervention and possibility of lung surgery. Cardiac risk factors are htn, hld, tobacco use, and CAD with h/o stents to RCA in past. No chest pain, dyspnea, or palpitations. EKG with no acute ischemic changes. Echocardiogram with normal LVEF and trace MR/TR. No further cardiac testing indicated. Intermediate cardiac risk for procedure/surgery. 2) CAD h/o stents to mRCA On statins No acute ekg changes Aspirin was held already for procedure Please call back with any further questions or clinical changes
--- NOTE | 2017-02-12 16:25 | CON.PULM ---
Consult Consult Specialty:: PULM/CCM Referred by:: JAMIE Reason for Consultation:: Lung CA - History of Present Illness Chief Complaint: Admitted for further w/up of abnormal PET History of Present Illness: 56 M, recently diagnosed Adenocarcinoma of the RUL. Diagnosis obtained by CT guided biopsy here on 01/29/2017 (pathology is not seen on computer). Additional history of CAD s/p 2 stents, HTN, and HPL. Reports increasing cough, throat discomfort, and sputum production. No hemoptysis. No travel history or sick contacts. PET scan: (+) Uptake in the Left posterior oropharynx. - History Source History Provided By: Patient Limitations to Obtaining History: No Limitations - Past Medical History Cardio/Vascular: Yes: CAD, HTN, Hyperlipdemia - Alcohol/Substance Use Hx Alcohol Use: Yes - Smoking History Smoking history: Former smoker Have you smoked in the past 12 months: Yes Aproximately how many cigarettes per day: 6 If you are a former smoker, when did you quit?: 6 Home Medications - Allergies Allergies/Adverse Reactions: Allergies Allergy/AdvReac Type Severity Reaction Status Date / Time No Known Drug Allergies Allergy Verified 02/11/17 09:15 - Home Medications Home Medications: Ambulatory Orders Amlodipine Besylate 10 mg PO DAILY 12/23/16 Atorvastatin Ca [Lipitor] 10 mg PO HS 12/23/16 Buspirone HCl 30 mg PO BID 12/23/16 Gabapentin 800 mg PO BID 12/23/16 Quetiapine Fumarate "Xr" [Seroquel Xr -] 300 mg PO ACDIN 12/23/16 Sertraline HCl [Zoloft] 200 mg PO ACDIN 12/23/16 Cholecalciferol (Vitamin D3) [Vitamin D3] 2,000 unit PO DAILY 01/02/17 Folic Acid 1 mg PO DAILY 01/02/17 Review of Systems - Review of Systems Constitutional: denies: Chills, Fever, Lethargy, Loss of Appetite, Malaise, Night Sweats, Unintentional Wgt. Loss Eyes: reports: No Symptoms HENT: reports: Throat Pain. denies: Difficult Swallowing, Gingival Bleeding, Hearing Loss, Mouth Swelling, Nasal Congestion, Toothache Neck: reports: No Symptoms Cardiovascular: reports: No Symptoms Respiratory: reports: Cough, Snoring. denies: Hemoptysis, SOB, SOB on Exertion , Wheezing Gastrointestinal: reports: No Symptoms Genitourinary: reports: No Symptoms Breasts: reports: No Symptoms Reported Musculoskeletal: reports: No Symptoms Integumentary: reports: No Symptoms Neurological: reports: No Symptoms Endocrine: reports: No Symptoms Hematology/Lymphatic: reports: No Symptoms Psychiatric: reports: No Symptoms Physical Exam Vital Sings: Vital Signs Temperature 97.3 F L 02/12/17 14:07 Pulse Rate 71 02/12/17 14:07 Respiratory Rate 20 02/12/17 14:07 Blood Pressure 142/90 02/12/17 14:07 O2 Sat by Pulse Oximetry (%) 98 02/12/17 11:42 Constitutional: Yes: Well Nourished, No Distress, Calm Eyes: Yes: WNL, Conjunctiva Clear, EOM Intact HENT: Yes: Atraumatic, Normocephalic Neck: Yes: Supple, Trachea Midline Cardiovascular: Yes: Regular Rate and Rhythm Respiratory: Yes: Regular, CTA Bilaterally ...Inspection: Yes: WNL ...Clubbing: No Gastrointestinal: Yes: Normal Bowel Sounds, Soft, Abdomen, Obese Renal/: Yes: WNL Musculoskeletal: Yes: WNL Extremities: Yes: WNL Edema: No Peripheral Pulses WNL: Yes Integumentary: Yes: WNL Neurological: Yes: WNL, Alert, Oriented ...Motor Strength: WNL Psychiatric: Yes: WNL, Alert, Oriented Labs: CBC, BMP 02/12/17 06:00 Imaging - Results Chest X-ray: Report Reviewed, Image Reviewed Problem List - Problems (1) Alcohol dependence Code(s): F10.20 - ALCOHOL DEPENDENCE, UNCOMPLICATED Qualifiers: Substance use status: with intoxication Complication of substance- induced condition: with unspecified complication Qualified Code(s): F10.229 - Alcohol dependence with intoxication, unspecified; F10.229 - Alcohol dependence with intoxication, unspecified; F10.229 - Alcohol dependence with intoxication, unspecified (2) COPD (chronic obstructive pulmonary disease) Code(s): J44.9 - CHRONIC OBSTRUCTIVE PULMONARY DISEASE, UNSPECIFIED Qualifiers : COPD type: unspecified COPD Qualified Code(s): J44.9 - Chronic obstructive pulmonary disease, unspecified; J44.9 - Chronic obstructive pulmonary disease, unspecified; J44.9 - Chronic obstructive pulmonary disease, unspecified; J44.9 - Chronic obstructive pulmonary disease, unspecified (3) Cough Code(s): R05 - COUGH (4) Lung cancer Code(s): C34.90 - MALIGNANT NEOPLASM OF UNSP PART OF UNSP BRONCHUS OR LUNG Qualifiers: Laterality: unspecified laterality Lung location: overlapping sites Qualified Code(s): C34.80 - Malignant neoplasm of overlapping sites of unspecified bronchus and lung; C34.80 - Malignant neoplasm of overlapping sites of unspecified bronchus and lung; C34.80 - Malignant neoplasm of overlapping sites of unspecified bronchus and lung; C34.80 - Malignant neoplasm of overlapping sites of unspecified bronchus and lung (5) Nicotine dependence Code(s): F17.200 - NICOTINE DEPENDENCE, UNSPECIFIED, UNCOMPLICATED Assessment/Plan Patient will be evaluated by Head & Neck surgery O2 as needed BD TX PRN No indication for systemic steroids VTE prophylaxis If lesion is benign -> possible lung resection next week Will follow Thank you. Dr Esquivel
[2017-02-12] MEDS ORDERED: SERTRALINE HCL 50 MG TABLET (FP) PO SCH (16:30)
[2017-02-12] MEDS ORDERED: chlordiazePOXIDE HCL 25 MG CAPSULE PO SCH (17:00)
--- NOTE | 2017-02-12 17:22 | PN ---
Physical Exam: SUBJECTIVE: Patient seen and examined. Pt reports increased cough, sputum production, and pain with swallowing x 1 mo (though pt is still able to swallow all pills and any type of food). Pt denies loss of appetite or weight loss. Pt denies fever, chills, nausea, vomiting, chest pain, palpitations, abdominal pain. No events overnight. OBJECTIVE: Vital Signs Period Temp Pulse Resp BP Sys/Clay Pulse Ox Last 24 Hr 97.3 F-98.2 F 71-83 18-20 131-148/72-90 96-99 GENERAL: The patient is awake, alert, and fully oriented, in no acute distress. HEAD: Normal with no signs of trauma. EYES: Extraocular movements intact, sclera anicteric, conjunctiva clear. No ptosis. ENT: Moist mucous membranes. NECK: Trachea midline, supple. LUNGS: Breath sounds equal, clear to auscultation bilaterally, no wheezes, no crackles, no accessory muscle use. HEART: Regular rate and rhythm, S1, S2 without murmur, rub or gallop. ABDOMEN: Soft, nontender, nondistended, no guarding, no rebound. EXTREMITIES: Warm, well-perfused, no edema. PSYCH: Normal mood, normal affect. SKIN: Warm, dry, normal turgor, no rashes or lesions noted Laboratory Results - last 24 hr 02/12/17 06:00 Sodium 145 Potassium 3.8 Chloride 108 H Carbon Dioxide 27 Anion Gap 10 BUN 11 D Creatinine 0.7 D Random Glucose 105 Calcium 7.8 L Phosphorus 2.4 L D Magnesium 1.9 D Active Medications Generic Name Dose Route Start Last Admin Trade Name Freq PRN Reason Stop Dose Admin Amlodipine Besylate 10 mg 02/11/17 17:30 02/12/17 10:43 Norvasc - PO 10 mg DAILY JUNIOR Administration Atorvastatin Calcium 10 mg 02/11/17 22:00 02/11/17 21:05 Lipitor - PO 10 mg HS JUNIOR Administration Buspirone HCl 30 mg 02/11/17 22:00 02/12/17 10:44 Buspar - PO 30 mg BID JUNIOR Administration Chlordiazepoxide HCl 25 mg 02/11/17 15:59 Librium - PO 02/14/17 15:58 Q4H PRN WITHDRAWAL(CONT SUBST) Chlordiazepoxide HCl 25 mg 02/12/17 17:00 Librium - PO 10/27/17 11:01 [id number] JUNIOR Chlordiazepoxide HCl 15 mg 02/13/17 17:00 Librium - PO 02/14/17 11:01 [id number] JUNIOR Cholecalciferol 2,000 unit 02/11/17 17:30 02/12/17 10:42 Vitamin D3 - PO 2,000 unit DAILY JUNIOR Administration Enoxaparin Sodium 40 mg 02/12/17 10:00 02/12/17 10:43 Lovenox - SQ 40 mg DAILY JUNIOR Administration Folic Acid 1 mg 02/12/17 10:00 02/12/17 10:43 Folic Acid - PO 1 mg DAILY JUNIOR Administration Gabapentin 800 mg 02/11/17 22:00 02/12/17 11:29 Neurontin - PO 800 mg BID JUNIOR Administration Sodium Chloride 1,000 mls @ 100 mls/hr 02/11/17 18:15 02/12/17 08:26 Normal Saline - IV 100 mls/hr ASDIR JUNIOR Administration Magnesium Oxide 400 mg 02/12/17 12:00 02/12/17 12:45 Mag-Ox - PO 02/12/17 22:01 400 mg BID JUNIOR Administration Multivitamins/Minerals/Vitamin C 1 tab 02/12/17 12:00 02/12/17 12:45 Tab-A-Vit - PO 1 tab DAILY JUNIOR Administration Quetiapine Fumarate 300 mg 02/12/17 16:30 02/12/17 16:22 Seroquel Xr - PO 300 mg ACDIN JUNIOR Administration Sertraline HCl 200 mg 02/12/17 16:30 02/12/17 16:22 Zoloft - PO 200 mg ACDIN JUNIOR Administration Thiamine HCl 100 mg 02/12/17 10:00 02/12/17 10:42 Vitamin B1 - PO 100 mg DAILY JUNIOR Administration IMAGIN02/12/17 Echo -> Left ventricular size, thickness, and function are normal. ASSESSMENT/PLAN: 56yo M with PMH of current smoker (6 cigarettes/day), Right lung CA, CAD with 2 stents, htn, hld, gout, presented with worsening cough and sputum production and admitted to med-surg in preparation for lung biopsy and possible lung surgery. 1) newly diagnosed RUL adenocarcinoma - possible scope biopsy tomorrow - if lesion is benign -> possible lung resection next week - cleared for surgery by Cardio (Dr. Alvarado) - hold ASA - Thoracic Surgery to follow (Dr. Gilmore) - Onc to follow (Dr. Preethi Joyce) - likely two primaries vs mets - complete staging work-up - f/u xrays of skull, face, orbits, neck, sheree shoulders, sheree elbows, sheree hands/wrists for MRI clearance - if clear for MRI -> Brain/Bone MRI with and without gadolinium - f/u CT ab/pel with contrast - 02/09/[address] -> slight increase in size of peripheral Right upper lobe mass sine 12/01/16. No evidence of additional pulmonary masses. 2) Supraglottic lesion - ENT consult (Dr. Bledsoe) 3) ETOH abuse - no signs of withdrawal - continue thiamine, folic acid, and MVI - Librium protocol prn - continue NS @ 100/ml 4) CAD s/p 2 stents - Echo -> Left ventricular size, thickness, and function are normal 5) htn - continue Norvasc 6) hld - continue Lipitor 7) hypophasphatemia - potassium phosphate 20mm given - f/u phos 7) FEN - Fluids: NS @ 100ml/hr - Electolytes: hypokalemia and hypomagnesemia resolved, continue to monitor - Nutrition: low sodium diet, npo after midnight for lung biopsy 8) DVT Prophylaxis - continue Lovenox Visit type - Emergency Visit Emergency Visit: Yes ED Registration Date: 02/11/17 Care time: The patient presented to the Emergency Department on the above date and was hospitalized for further evaluation of their emergent condition. - New Patient This patient is new to me today: Yes Date on this admission: 02/12/17 - Critical Care Critical Care patient: No
--- NOTE | 2017-02-12 18:14 | PN ---
Teaching Attending Note Name of Resident: Gloria Zaldivar ATTENDING PHYSICIAN STATEMENT I saw and evaluated the patient. I reviewed the resident's note and discussed the case with the resident. I agree with the resident's findings and plan as documented. SUBJECTIVE: Reports increasing cough, throat discomfort, and sputum production. Patient was instructed to come to hospital by his ENT physician fir further workup of lung nodule and possible laryngeal primary ca vs mets. OBJECTIVE: Last Vital Signs Temp Pulse Resp BP Pulse Ox 97.3 F L 71 20 142/90 98 02/12/17 14:07 02/12/17 14:07 02/12/17 14:07 02/12/17 14:07 02/12/17 11:42 heent - nc, at, no sinus tenderness neck -supple cv-s1+s2+ RRR chest - cta b/l, no wheezing , rales, or rhonchi abdomen- soft, nt, no masses skin- no rashes echo -wnl Abnormal Lab Results 02/12/17 06:00 Chloride 108 H Calcium 7.8 L Phosphorus 2.4 L D PET scan: (+) Uptake in the Left posterior oropharynx. CT of chest -right lung nodule ASSESSMENT AND PLAN: 56 M, recently diagnosed Adenocarcinoma of the RUL. Diagnosis obtained by CT guided biopsy on 01/29/2017. Additional history of CAD s/p 2 stents, gout, HTN, and dyslipidemia. #Right lung adenocarcinoma -pulmonary consult appreciated. -oncology evaluation -npo past MN for bronchoscopy tomorrow -hold ASA #PET avid supraglottic lesion- ENT recs appreciated #CAD - cardiology consult appreciated -hold ASA --statin #ETOH abuse- etoh level > 200 on admission -CIWA -librium PO PRN -thiamine, folate , multivitamin supplementation -IVF hydration -DVT ppx lovenox ppx dose
[2017-02-12] MEDS ORDERED: chlordiazePOXIDE HCL 25 MG CAPSULE PO PRN (18:32)
[2017-02-12] MEDS ORDERED: SODIUM CHLORIDE 1,000 ML IV SCH (18:45)
[2017-02-12] MEDS: ATORVASTATIN CA 10 MG TABLET (FP) PO SCH (21:40)
[2017-02-12 22:13] LABS: URINE MARIJUANA THC NEGATIVE ng/ml (CUTOFF=50)
[2017-02-13] MEDS: SODIUM CHLORIDE 1,000 ML IV SCH ×2 (01:29→21:35)
[2017-02-13 08:30] LABS: ALBUMIN 3.3 g/dl (3.4-5.0); ANION GAP 9 (8-16); CALCIUM 8.1 mg/dL (8.5-10.1); CO2 28 mmol/L (21-32); MAGNESIUM 1.6 mg/dL (1.8-2.4)
[2017-02-13 09:02] LABS: ALK PHOS 52 U/L (45-117); BILIRUBIN,TOTAL 0.5 mg/dL (0.2-1.0); GLUCOSE,RANDOM 109 mg/dL (74-106); SGOT/AST 36 U/L (15-37); TOT PROT 7.1 g/dl (6.4-8.2)
[2017-02-13] MEDS: amLODIPine BESYLATE 10 MG TABLET (FP) PO SCH (09:14)
[2017-02-13] MEDS: GABAPENTIN 400 MG CAPSULE (FP) PO SCH ×2 (09:20→21:32)
[2017-02-13] MEDS ORDERED: PT OWN MED DRAWER 7, Y5N ONE ×3 (09:20→20:08)
[2017-02-13] MEDS: busPIRone HCL 10 MG TABLET (FP) PO SCH ×2 (09:21→21:31)
[2017-02-13] MEDS ORDERED: ALLOPURINOL 100 MG TABLET (FP) PO SCH (10:00)
[2017-02-13 10:44] LABS: CREATININE 0.8 mg/dL (0.7-1.3); PHOSPHOROUS 2.8 mg/dL (2.5-4.9); SGPT/ALT 35 U/L (12-78)
[2017-02-13] MEDS: FOLIC ACID 1 MG TABLET (FP) PO SCH (10:50)
[2017-02-13] MEDS: CHOLECALCIFEROL (VITAMIN D3) 1,000 UNIT TABLET (FP) PO SCH (10:51)
[2017-02-13] MEDS: THIAMINE HCL 100 MG TABLET (FP) PO SCH (10:51)
[2017-02-13] MEDS: MULTIVITAMINS (DAILY MVI) TABLET (FP) PO SCH (10:51)
[2017-02-13] MEDS: ENOXAPARIN NA (PORCINE) 40 MG/0.4 ML DISP.SYRIN SQ SCH (10:51)
--- NOTE | 2017-02-13 10:58 | CONSULT ---
Consult - text type - Consultation Consultation Note: Patient seen and examined. PET scan reviewed. 56 y/o man s/p two coronary stents placed two years ago. Now presents with left throat pain when swallowing food or saliva. No hemoptysis, dyspnea, change in voice or weight loss. Solitary right lung nodule seen on imaging and FNA read as adenocarcinoma. PMH: hypertension, hypercholesterolemia, depression, CAD PSH: hip replacement two years ago Meds: seroquil, neurontin, aspirin (held), meds for HTN and high cholesterol SH: previously smoke 1.5 ppd, now 1/4 ppd since age 17, drinks 2 pints of vodka daily and sometimes wine. 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 Likes to ride a bike and walk a lot. FH: no history of cancer On examination no palpable mass. 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 Will proceed with direct laryngoscopy, esophagoscopy and biopsy today. Further management will depend on results. He understands and wishes to proceed.
[2017-02-13] MEDS ORDERED: LIDOCAINE HCL/PF 2% SDV 5ML VIAL ONE (11:30)
[2017-02-13] MEDS ORDERED: PROPOFOL 20 ML ONE ×2 (11:30)
[2017-02-13] MEDS ORDERED: SUCCINYLCHOLINE CHLORIDE 200 MG/10 ML VIAL ONE (11:30)
[2017-02-13] MEDS ORDERED: ROCURONIUM BROMIDE 50 MG/5 ML VIAL ONE (11:30)
[2017-02-13] MEDS ORDERED: MIDAZOLAM HCL 2 MG/2 ML SINGLE DOSE VIAL ONE (11:31)
[2017-02-13] MEDS ORDERED: GLYCOPYRROLATE 0.2 MG/1 ML VIAL ONE (11:44)
[2017-02-13] MEDS ORDERED: EPINEPHrine/PF 1 MG/1 ML (1:1,000) AMPULE ONE (12:11)
[2017-02-13] MEDS ORDERED: DEXAMETHASONE SOD PHOSPHATE 4 MG/1 ML VIAL ONE ×2 (12:17→12:19)
[2017-02-13] MEDS ORDERED: ONDANSETRON 4 MG/2 ML VIAL IVPUSH PRN ×2 (12:23→13:44)
[2017-02-13] MEDS ORDERED: HYDROmorphone HCL CARPU-JECT 1 MG/1 ML DISP.SYRIN IVPUSH PRN (12:23)
[2017-02-13] MEDS ORDERED: LACTATED RINGERS SOLUTION 1,000 ML IV SCH (12:30)
--- NOTE | 2017-02-13 13:25 | OP ---
DATE OF OPERATION: 02/13/2017 SURGICAL ATTENDING: Mary Guerin MD PREOPERATIVE DIAGNOSIS: Supraglottic mass. 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 PROCEDURE: 1. Direct laryngoscopy with biopsy. 2. Rigid esophagoscopy. DESCRIPTION OF PROCEDURE: The patient was taken into the operating room and placed in a supine position. Endotracheally intubated. Examination of the oral cavity with a headlight showed no tumor or ulceration throughout. A tooth guard was placed. A rigid esophagoscopy was performed throughout the cervical esophagus, and no intraluminal tumor was found. However, at the entrance to the esophagus on the anterior surface, tumor was present. Direct laryngoscopy was then performed showing no tumor in the glottis or false cords. The right side of the larynx and right piriform sinus were normal. The left piriform sinus had ulcerative tumor on all 3 daniels. It was pressing into the left side of the larynx such that the aryepiglottic fold was displaced medially and full. The left retinoid also had fullness but no ulceration through the mucosa. The posterior pharyngeal wall appeared to be clear tumor. Biopsies of all 3 daniels of the piriform sinus was sent for permanent evaluation. The left wall was sent for frozen and was confirmed to be squamous carcinoma. Hemostasis was achieved with epinephrine-soaked pledgets. After hemostasis was assured, the patient was then extubated, awakened, and taken to recovery in stable condition. Dr. Guerin, the attending surgeon, was present throughout the entire procedure. MARY GUERIN M.D. [id number]
[2017-02-13] MEDS ORDERED: chlordiazePOXIDE HCL 25 MG CAPSULE PO PRN ×2 (13:44)
--- NOTE | 2017-02-13 16:57 | HOSP ---
Subjective - Review of Symptoms Events since last encounter: 56yo M with PMH of lung Ca, CAD, HTN, HLD, presents s/p fall. Fall was not witnessed by any healthcare provider. Pt reports he slid from chair onto both knees. Pt denies hitting his head, (-) LOC. Pt denies pain. Physical Examination Vital Signs: Vital Signs Temperature 98.0 F 02/13/17 13:52 Pulse Rate 83 02/13/17 13:52 Respiratory Rate 16 02/13/17 13:52 Blood Pressure 119/82 02/13/17 13:52 O2 Sat by Pulse Oximetry (%) 99 02/13/17 13:35 Constitutional: Yes: Well Nourished, Calm Eyes: Yes: Conjunctiva Clear, EOM Intact HENT: Yes: Atraumatic, Normocephalic Neck: Yes: Supple, Trachea Midline Cardiovascular: Yes: Regular Rate and Rhythm, S1, S2 Respiratory: Yes: Regular, CTA Bilaterally Gastrointestinal: Yes: Soft. No: Tenderness Musculoskeletal: Yes: Other (No crepitus or deformities palpated on sheree knees. No tenderness to palpation.). No: Back Pain, Joint Stiffness, Joint Swelling, Muscle Pain, Muscle Weakness Neurological: Yes: Alert, Oriented ...Motor Strength: WNL Labs: CBC, BMP 02/13/17 06:30 Hospitalist Encounter Assessment: Pt s/p fall from chair onto sheree knees. - f/u xrays to sheree knees - Heat CT noncontrast ordered - will continue to monitor Visit type - Emergency Visit Emergency Visit: Yes ED Registration Date: 02/11/17 Care time: The patient presented to the Emergency Department on the above date and was hospitalized for further evaluation of their emergent condition. - New Patient This patient is new to me today: No - Critical Care Critical Care patient: No
[2017-02-13] MEDS ORDERED: chlordiazePOXIDE 5 MG CAPSULE PO SCH (17:00)
--- NOTE | 2017-02-13 17:05 | PN ---
Progress Note (short form) - Note Progress Note: Thoracic Surgery: Discussed in detail with Dr. Bledsoe. Will plan on VATS on Thursday to treat lung cancer and then treatment of supraglottic cancer to follow. NPO p FREDA Thursday. Will need epidural so no lovenox after Thursday AM.
[2017-02-13] MEDS: SERTRALINE HCL 50 MG TABLET (FP) PO SCH (17:36)
[2017-02-13] MEDS ORDERED: chlordiazePOXIDE 5 MG CAPSULE PO PRN ×2 (18:00)
--- NOTE | 2017-02-13 18:04 | PN ---
Teaching Attending Note Name of Resident: Gloria Zaldivar ATTENDING PHYSICIAN STATEMENT I saw and evaluated the patient. I reviewed the resident's note and discussed the case with the resident. I agree with the resident's findings and plan as documented. SUBJECTIVE: Patient s/p laryngoscopy today, biopsied larygeal wall, found to have scc. S/p fall today from chair, landed on knees. No LOC. no signs of trauma. OBJECTIVE: Last Vital Signs Temp Pulse Resp BP Pulse Ox 97.3 F L 69 18 147/87 99 02/13/17 17:12 02/13/17 17:12 02/13/17 17:12 02/13/17 17:12 02/13/17 13:35 general - nad, pleasant heent - poor dentition, atraumatic neck -supple cv-s1+s2+ RRR chest cta b/l abdomen- soft nt, no masses appreciated ext -no edema appreciated, no knee tenderness ASSESSMENT AND PLAN: 56 M w/ CAD s/p 2 stents, gout, HTN, and dyslipidemia recently diagnosed Adenocarcinoma of the RUL. Diagnosis obtained by CT guided biopsy on 2016. 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 Planned for right lung VATS on thursday. #Right lung adenocarcinoma -pulmonary consult appreciated. 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 -head ct as per hospital policy -#DVT ppx lovenox ppx dose - hold after thursday am
[2017-02-13] MEDS: LACTATED RINGERS SOLUTION 1,000 ML IV SCH (18:28)
[2017-02-13] MEDS ORDERED: MAGNESIUM OXIDE 400 MG TABLET (FP) PO ONE (19:12)
--- NOTE | 2017-02-13 19:52 | PN ---
Physical Exam: SUBJECTIVE: Patient seen and examined. Pt s/p laryngoscopy with laryngeal wall biopsy revealing squamous cell Ca. Pt has no complaints. OBJECTIVE: Vital Signs Period Temp Pulse Resp BP Sys/Clay Pulse Ox Last 24 Hr 97.3 F-98.6 F 69-92 16-20 119-161/77-97 95-100 GENERAL: The patient is awake, alert, and fully oriented, in no acute distress. HEAD: Normal with no signs of trauma. EYES: Extraocular movements intact, sclera anicteric, conjunctiva clear. No ptosis. ENT: Poor dentition, oropharynx clear without exudates, moist mucous membranes. NECK: Trachea midline, supple. LUNGS: Breath sounds equal, clear to auscultation bilaterally, no wheezes, no crackles, no accessory muscle use. HEART: Regular rate and rhythm, S1, S2 without murmur, rub or gallop. ABDOMEN: Soft, nontender, nondistended. EXTREMITIES: Warm, well-perfused, no edema. PSYCH: Normal mood, normal affect. SKIN: Warm, dry, normal turgor, no rashes or lesions noted Laboratory Results - last 24 hr 02/12/17 02/13/17 21:30 06:30 Sodium 144 Potassium 3.7 Chloride 107 Carbon Dioxide 28 Anion Gap 9 BUN 7 D Creatinine 0.8 Creat Clearance w eGFR > 60 Random Glucose 109 H Calcium 8.1 L Phosphorus 2.8 Magnesium 1.6 L Total Bilirubin 0.5 D AST 36 D ALT 35 D Alkaline Phosphatase 52 Total Protein 7.1 Albumin 3.3 L Opiates Screen Negative Methadone Screen Negative Barbiturate Screen Negative Phencyclidine Screen Negative Ur Amphetamines Screen Negative MDMA (Ecstasy) Screen Negative Benzodiazepines Screen Positive Cocaine Screen Negative U Marijuana (THC) Screen Negative Active Medications Generic Name Dose Route Start Last Admin Trade Name Freq PRN Reason Stop Dose Admin Allopurinol 100 mg 02/14/17 10:00 Zyloprim - PO DAILY JUNIOR Amlodipine Besylate 10 mg 02/14/17 10:00 Norvasc - PO DAILY JUNIOR Atorvastatin Calcium 10 mg 02/13/17 22:00 Lipitor - PO HS JUNIOR Buspirone HCl 30 mg 02/13/17 22:00 Buspar - PO BID JUNIOR Chlordiazepoxide HCl 25 mg 02/13/17 13:44 Librium - PO 02/14/17 15:58 Q4H PRN WITHDRAWAL(CONT SUBST) Chlordiazepoxide HCl 15 mg 02/13/17 18:00 Librium - PO 02/14/17 18:01 Q6HPO PRN WITHDRAWAL(CONT SUBST) Chlordiazepoxide HCl 25 mg 02/13/17 13:44 Librium - PO 02/13/17 18:01 Q6HPO PRN WITHDRAWAL(CONT SUBST) Cholecalciferol 2,000 unit 02/14/17 10:00 Vitamin D3 - PO DAILY JUNIOR Enoxaparin Sodium 40 mg 02/14/17 10:00 Lovenox - SQ DAILY JUNIOR Folic Acid 1 mg 02/14/17 10:00 Folic Acid - PO DAILY JUNIOR Gabapentin 800 mg 02/13/17 22:00 Neurontin - PO BID JUNIOR Lactated Ringer's 1,000 mls @ 125 mls/hr 02/13/17 13:44 02/13/17 18:28 Lactated Ringers Solution IV Not Given ASDIR [facility] Sodium Chloride 1,000 mls @ 100 mls/hr 02/13/17 13:44 Normal Saline - IV ASDIR JUNIOR Multivitamins/Minerals/Vitamin C 1 tab 02/14/17 10:00 Tab-A-Vit - PO DAILY JUNIOR Quetiapine Fumarate 300 mg 02/13/17 16:30 02/13/17 17:36 Seroquel Xr - PO 300 mg ACDIN JUNIOR Administration Sertraline HCl 200 mg 02/13/17 16:30 02/13/17 17:36 Zoloft - PO 200 mg ACDIN JUNIOR Administration Thiamine HCl 100 mg 02/14/17 10:00 Vitamin B1 - PO DAILY [facility] ASSESSMENT/PLAN: 56yo M with PMH of current smoker (6 cigarettes/day), Right lung CA, CAD with 2 stents, htn, hld, gout, presented with worsening cough and sputum production and admitted to med-surg in preparation for lung biopsy and possible lung surgery. 1) newly diagnosed RUL adenocarcinoma - lung resection surgery scheduled for Thursday with Dr. Gilmore (Thoracic Surgery) - xrays (from Onc staging work-up) reveal no metallic objects, pt is clear for MRI - since pt is s/p fall (requiring a Head CT) and since MRI cannot be done prior to Thursday surgery -> Head CT with and without contrast per Dr. Preethi Mellacheruvu 2) Supraglottic lesion - s/p laryngoscopy biopsy revealing squamous cell Ca - ENT to follow (Dr. Bledsoe) 3) ETOH abuse - no signs of withdrawal - continue thiamine, folic acid, and MVI - Librium protocol prn - continue NS @ 100/ml 4) CAD s/p 2 stents - hold ASA - continue Lipitor 5) htn - continue Norvasc 6) hld - continue Lipitor 7) gout - continue Allopurinol 8) poor dentition - f/u as outpatient 9) hypomagnesemia - Mag-Ox 800mg po given 10) FEN - Fluids: NS @ 100ml/hr - Electolytes: hypomagnesemia noted, continue to monitor - Nutrition: low sodium diet, npo after midnight on Thursday lung resection surgery on Thursday 11) DVT Prophylaxis - continue Lovenox, hold after Thursday morning in anticipation for VATS procedure on Thursday - SCDs Visit type - Emergency Visit Emergency Visit: Yes ED Registration Date: 02/11/17 Care time: The patient presented to the Emergency Department on the above date and was hospitalized for further evaluation of their emergent condition. - New Patient This patient is new to me today: No - Critical Care Critical Care patient: No
[2017-02-13] MEDS: ATORVASTATIN CA 10 MG TABLET (FP) PO SCH (21:32)
--- NOTE | 2017-02-13 23:53 | PN ---
Progress Note (short form) - Note Progress Note: Patient seen and examined Denies any complaints Last Vital Signs Temp Pulse Resp BP Pulse Ox 97.3 F L 71 20 142/90 98 02/12/17 14:07 02/12/17 14:07 02/12/17 14:07 02/12/17 14:07 02/12/17 11:42 Cor: RSR, No murmurs, No gallops Lungs: Clear to P&A Abd: Soft, Normal bowel sounds, No organomegaly Ext:No significant edema Skin: No rashes, Integument intact Abnormal Lab Results 02/12/17 06:00 Chloride 108 H Calcium 7.8 L Phosphorus 2.4 L D Active Medications Generic Name Dose Route Start Last Admin Trade Name Freq PRN Reason Stop Dose Admin Amlodipine Besylate 10 mg 02/11/17 17:30 02/12/17 10:43 Norvasc - PO 10 mg DAILY JUNIOR Administration Atorvastatin Calcium 10 mg 02/11/17 22:00 02/11/17 21:05 Lipitor - PO 10 mg HS JUNIOR Administration Buspirone HCl 30 mg 02/11/17 22:00 02/12/17 10:44 Buspar - PO 30 mg BID JUNIOR Administration Chlordiazepoxide HCl 25 mg 02/11/17 15:59 Librium - PO 02/14/17 15:58 Q4H PRN WITHDRAWAL(CONT SUBST) Chlordiazepoxide HCl 25 mg 02/12/17 17:00 Librium - PO 02/13/17 11:01 [id number] JUNIOR Chlordiazepoxide HCl 15 mg 02/13/17 17:00 Librium - PO 02/14/17 11:01 [id number] JUNIOR Cholecalciferol 2,000 unit 02/11/17 17:30 02/12/17 10:42 Vitamin D3 - PO 2,000 unit DAILY JUNIOR Administration Enoxaparin Sodium 40 mg 02/12/17 10:00 02/12/17 10:43 Lovenox - SQ 40 mg DAILY JUNIOR Administration Folic Acid 1 mg 02/12/17 10:00 02/12/17 10:43 Folic Acid - PO 1 mg DAILY JUNIOR Administration Gabapentin 800 mg 02/11/17 22:00 02/12/17 11:29 Neurontin - PO 800 mg BID JUNIOR Administration Sodium Chloride 1,000 mls @ 100 mls/hr 02/11/17 18:15 02/12/17 08:26 Normal Saline - IV 100 mls/hr ASDIR JUNIOR Administration Potassium Phosphate 20 mm/ 256.6667 mls @ 64.167 mls/hr 02/12/17 11:00 12:45 Sodium Chloride IVPB 02/12/17 14:59 64.167 mls/hr ONCE ONE Administration Magnesium Oxide 400 mg 02/12/17 12:00 02/12/17 12:45 Mag-Ox - PO 02/12/17 22:01 400 mg BID JUNIOR Administration Multivitamins/Minerals/Vitamin C 1 tab 02/12/17 12:00 02/12/17 12:45 Tab-A-Vit - PO 1 tab DAILY JUNIOR Administration Quetiapine Fumarate 300 mg 02/12/17 16:30 Seroquel Xr - PO ACDIN JUNIOR Sertraline HCl 200 mg 02/12/17 16:30 Zoloft - PO ACDIN JUNIOR Thiamine HCl 100 mg 02/12/17 10:00 02/12/17 10:42 Vitamin B1 - PO 100 mg DAILY JUNIOR Administration A/P 56 y/o patient with Newly diagnosed RUL adenocarcinoma PET avid Supraglottic lesion Alcohol abuse Ex-smoker -ENT to f/u -2 primaries . RUL adenoca chest CT 02/09 -- upper abdomen --no lesions, increased RUL mass--T2 Stage IB lung clinically CT head with and without contrast shows no mets Lt, piriform sinus suamous cell ca Seen by head and neck surgery
[2017-02-14] MEDS: SODIUM CHLORIDE 1,000 ML IV SCH ×2 (00:06→16:24)
[2017-02-14] MEDS: CHOLECALCIFEROL (VITAMIN D3) 1,000 UNIT TABLET (FP) PO SCH (10:30)
[2017-02-14] MEDS: MULTIVITAMINS (DAILY MVI) TABLET (FP) PO SCH (10:30)
[2017-02-14] MEDS: amLODIPine BESYLATE 10 MG TABLET (FP) PO SCH (10:30)
[2017-02-14] MEDS: ALLOPURINOL 100 MG TABLET (FP) PO SCH (10:30)
[2017-02-14] MEDS: THIAMINE HCL 100 MG TABLET (FP) PO SCH (10:30)
[2017-02-14] MEDS: GABAPENTIN 400 MG CAPSULE (FP) PO SCH ×2 (10:30→21:47)
[2017-02-14] MEDS: FOLIC ACID 1 MG TABLET (FP) PO SCH (10:31)
[2017-02-14] MEDS: busPIRone HCL 10 MG TABLET (FP) PO SCH ×2 (10:31→21:47)
[2017-02-14] MEDS: ENOXAPARIN NA (PORCINE) 40 MG/0.4 ML DISP.SYRIN SQ SCH (10:34)
--- NOTE | 2017-02-14 11:43 | PN ---
Progress Note (short form) - Note Progress Note: Anesthesia post op note POD#1. S/P direct laryngoscopy,biopsy and esophagoscopy under GA. Pat seen and examined. VSS. No apparent post anesthesia complications.Signed off.
--- NOTE | 2017-02-14 12:47 | PN ---
Physical Exam: SUBJECTIVE: Patient seen and examined Patient is comfortable with no acute distress, no shortness of breath, no fever or chills. OBJECTIVE: Vital Signs Temperature 915.5 F H 02/14/17 04:59 Pulse Rate 66 02/14/17 04:59 Respiratory Rate 18 02/14/17 04:59 Blood Pressure 140/86 02/14/17 04:59 O2 Sat by Pulse Oximetry (%) 98 02/13/17 21:00 GENERAL: The patient is awake, alert, and fully oriented, in no acute distress. HEAD: Normal with no signs of trauma. EYES: PERRL, extraocular movements intact, sclera anicteric, conjunctiva clear. ENT: Ears normal, oropharynx clear without exudates, moist mucous membranes. NECK: Trachea midline, full range of motion, supple. LUNGS:decreased air entery bl, no wheezes, no crackles, no accessory muscle use. HEART: Regular rate and rhythm, S1, S2 without murmur, rub or gallop. ABDOMEN: Soft, nontender, nondistended, normoactive bowel sounds, no guarding, no rebound, no hepatosplenomegaly, no masses. EXTREMITIES: 2+ pulses, warm, well-perfused, no edema. NEUROLOGICAL: Cranial nerves II through XII grossly intact. Normal speech, gait is stable PSYCH: Normal mood, normal affect. SKIN: Warm, dry, normal turgor, no rashes or lesions noted Active Medications Generic Name Dose Route Start Last Admin Trade Name Freq PRN Reason Stop Dose Admin Allopurinol 100 mg 02/14/17 10:00 02/14/17 10:30 Zyloprim - PO 100 mg DAILY JUNIOR Administration Amlodipine Besylate 10 mg 02/14/17 10:00 02/14/17 10:30 Norvasc - PO 10 mg DAILY JUNIOR Administration Atorvastatin Calcium 10 mg 02/13/17 22:00 02/13/17 21:32 Lipitor - PO 10 mg HS JUNIOR Administration Buspirone HCl 30 mg 02/13/17 22:00 02/14/17 10:31 Buspar - PO 30 mg BID JUNIOR Administration Chlordiazepoxide HCl 15 mg 02/13/17 18:00 Librium - PO 02/14/17 18:01 Q6HPO PRN WITHDRAWAL(CONT SUBST) Cholecalciferol 2,000 unit 02/14/17 10:00 02/14/17 10:30 Vitamin D3 - PO 2,000 unit DAILY JUNIOR Administration Enoxaparin Sodium 40 mg 02/14/17 10:00 02/14/17 10:34 Lovenox - SQ 40 mg DAILY JUNIOR Administration Folic Acid 1 mg 02/14/17 10:00 02/14/17 10:31 Folic Acid - PO 1 mg DAILY JUNIOR Administration Gabapentin 800 mg 02/13/17 22:00 02/14/17 10:30 Neurontin - PO 800 mg BID JUNIOR Administration Lactated Ringer's 1,000 mls @ 125 mls/hr 02/13/17 13:44 02/13/17 18:28 Lactated Ringers Solution IV Not Given ASDIR JUNIOR Sodium Chloride 1,000 mls @ 100 mls/hr 02/13/17 13:44 02/14/17 00:06 Normal Saline - IV 100 mls/hr ASDIR JUNIOR Administration Multivitamins/Minerals/Vitamin C 1 tab 02/14/17 10:00 02/14/17 10:30 Tab-A-Vit - PO 1 tab DAILY JUNIOR Administration Quetiapine Fumarate 300 mg 02/13/17 16:30 02/13/17 17:36 Seroquel Xr - PO 300 mg ACDIN JUNIOR Administration Sertraline HCl 200 mg 02/13/17 16:30 02/13/17 17:36 Zoloft - PO 200 mg ACDIN JUNIOR Administration Thiamine HCl 100 mg 02/14/17 10:00 02/14/17 10:30 Vitamin B1 - PO 100 mg DAILY JUNIOR Administration Home Medications Medication Instructions Recorded Amlodipine Besylate 10 mg PO DAILY 12/23/16 Atorvastatin Ca [Lipitor] 10 mg PO HS 12/23/16 Gabapentin 800 mg PO TID 12/23/16 Quetiapine Fumarate "Xr" [Seroquel 300 mg PO ACDIN 12/23/16 Xr -] Sertraline HCl [Zoloft] 100 mg PO BID 12/23/16 Folic Acid 1 mg PO DAILY 01/02/17 Allopurinol [Zyloprim -] 100 mg PO DAILY 02/12/17 Aspirin [ASA -] 81 mg PO DAILY 02/12/17 ASSESSMENT/PLAN: 56 M w/ CAD s/p 2 stents, gout, HTN, and dyslipidemia recently diagnosed Adenocarcinoma of the RUL. Diagnosis obtained by CT guided biopsy on 2016. 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 Planned for right lung VATS on thursday. #Right lung adenocarcinoma -pulmonary consult appreciated. Oncology on the case. going for VAT of the right side, procedure on Thursday. 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 head ct was done ; report no head bleed. -#DVT ppx :lovenox ppx dose - hold after thursday am Visit type - Emergency Visit Emergency Visit: Yes ED Registration Date: 02/11/17 Care time: The patient presented to the Emergency Department on the above date and was hospitalized for further evaluation of their emergent condition. - New Patient This patient is new to me today: Yes Date on this admission: 02/14/17 - Critical Care Critical Care patient: No
[2017-02-14] MEDS: LACTATED RINGERS SOLUTION 1,000 ML IV SCH (16:21)
[2017-02-14] MEDS: SERTRALINE HCL 50 MG TABLET (FP) PO SCH (16:22)
[2017-02-14] MEDS ORDERED: PT OWN MED DRAWER 7, Y5N ONE (19:56)
[2017-02-14] MEDS: ATORVASTATIN CA 10 MG TABLET (FP) PO SCH (21:47)
--- NOTE | 2017-02-15 10:48 | PN ---
Progress Note (short form) - Note Progress Note: Resting in NAD. No acute events overnight. Intake & Output 02/12/17 02/13/17 02/14/17 02/15/17 23:59 23:59 23:59 23:59 Intake Total 2390 2225 1240 700 Output Total 1000 1260 1000 400 Balance 1390 965 240 300 Last Vital Signs Temp Pulse Resp BP Pulse Ox 97.5 F L 61 20 146/82 97 02/15/17 06:00 02/15/17 06:00 02/15/17 06:00 02/15/17 06:00 02/14/17 21:00 Active Medications Allopurinol (Zyloprim -) 100 mg PO DAILY [facility] Last Admin: 02/14/17 10:30 Dose: 100 mg Amlodipine Besylate (Norvasc -) 10 mg PO DAILY [facility] Last Admin: 02/14/17 10:30 Dose: 10 mg Atorvastatin Calcium (Lipitor -) 10 mg PO HS [facility] Last Admin: 02/14/17 21:47 Dose: 10 mg Buspirone HCl (Buspar -) 30 mg PO BID [facility] Last Admin: 02/14/17 21:47 Dose: 30 mg Chlordiazepoxide HCl (Librium -) 15 mg PO Q6HPO PRN PRN Reason: WITHDRAWAL(CONT SUBST) Stop: 02/14/17 18:01 Cholecalciferol (Vitamin D3 -) 2,000 unit PO DAILY [facility] Last Admin: 02/14/17 10:30 Dose: 2,000 unit Enoxaparin Sodium (Lovenox -) 40 mg SQ DAILY [facility] Last Admin: 02/14/17 10:34 Dose: 40 mg Folic Acid (Folic Acid -) 1 mg PO DAILY [facility] Last Admin: 02/14/17 10:31 Dose: 1 mg Gabapentin (Neurontin -) 800 mg PO BID [facility] Last Admin: 02/14/17 21:47 Dose: 800 mg Lactated Ringer's (Lactated Ringers Solution) 1,000 mls @ 125 mls/hr IV ASDIR [facility] Last Admin: 02/14/17 16:21 Dose: Not Given Sodium Chloride (Normal Saline -) 1,000 mls @ 100 mls/hr IV ASDIR [facility] Last Admin: 02/14/17 16:24 Dose: 100 mls/hr Multivitamins/Minerals/Vitamin C (Tab-A-Vit -) 1 tab PO DAILY [facility] Last Admin: 02/14/17 10:30 Dose: 1 tab Quetiapine Fumarate (Seroquel Xr -) 300 mg PO ACDIN [facility] Last Admin: 02/14/17 16:22 Dose: 300 mg Sertraline HCl (Zoloft -) 200 mg PO ACDIN [facility] Last Admin: 02/14/17 16:22 Dose: 200 mg Thiamine HCl (Vitamin B1 -) 100 mg PO DAILY [facility] Last Admin: 02/14/17 10:30 Dose: 100 mg Constitutional: Yes: Well Nourished, No Distress, Calm Eyes: Yes: WNL, Conjunctiva Clear, EOM Intact HENT: Yes: Atraumatic, Normocephalic Neck: Yes: Supple, Trachea Midline Cardiovascular: Yes: Regular Rate and Rhythm Respiratory: Yes: Regular, CTA Bilaterally ...Inspection: Yes: WNL ...Clubbing: No Gastrointestinal: Yes: Normal Bowel Sounds, Soft, Abdomen, Obese Renal/: Yes: WNL Musculoskeletal: Yes: WNL Extremities: Yes: WNL Edema: No Peripheral Pulses WNL: Yes Integumentary: Yes: WNL Neurological: Yes: WNL, Alert, Oriented ...Motor Strength: WNL Psychiatric: Yes: WNL, Alert, Oriented Labs: Problem List - Problems (1) Alcohol dependence Code(s): F10.20 - ALCOHOL DEPENDENCE, UNCOMPLICATED Qualifiers: Substance use status: with intoxication Complication of substance- induced condition: with unspecified complication Qualified Code(s): F10.229 - Alcohol dependence with intoxication, unspecified; F10.229 - Alcohol dependence with intoxication, unspecified; F10.229 - Alcohol dependence with intoxication, unspecified (2) COPD (chronic obstructive pulmonary disease) Code(s): J44.9 - CHRONIC OBSTRUCTIVE PULMONARY DISEASE, UNSPECIFIED Qualifiers : COPD type: unspecified COPD Qualified Code(s): J44.9 - Chronic obstructive pulmonary disease, unspecified; J44.9 - Chronic obstructive pulmonary disease, unspecified; J44.9 - Chronic obstructive pulmonary disease, unspecified; J44.9 - Chronic obstructive pulmonary disease, unspecified (3) Cough Code(s): R05 - COUGH (4) Lung cancer Code(s): C34.90 - MALIGNANT NEOPLASM OF UNSP PART OF UNSP BRONCHUS OR LUNG Qualifiers: Laterality: unspecified laterality Lung location: overlapping sites Qualified Code(s): C34.80 - Malignant neoplasm of overlapping sites of unspecified bronchus and lung; C34.80 - Malignant neoplasm of overlapping sites of unspecified bronchus and lung; C34.80 - Malignant neoplasm of overlapping sites of unspecified bronchus and lung; C34.80 - Malignant neoplasm of overlapping sites of unspecified bronchus and lung (5) Nicotine dependence Code(s): F17.200 - NICOTINE DEPENDENCE, UNSPECIFIED, UNCOMPLICATED (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 Assessment/Plan Anticipated for Right VATS O2 as needed BD [place] PRN Dr Esquivel Problem List - Problems (1) Alcohol dependence Code(s): F10.20 - ALCOHOL DEPENDENCE, UNCOMPLICATED Qualifiers: Substance use status: with intoxication Complication of substance- induced condition: with unspecified complication Qualified Code(s): F10.229 - Alcohol dependence with intoxication, unspecified; F10.229 - Alcohol dependence with intoxication, unspecified; F10.229 - Alcohol dependence with intoxication, unspecified (2) COPD (chronic obstructive pulmonary disease) Code(s): J44.9 - CHRONIC OBSTRUCTIVE PULMONARY DISEASE, UNSPECIFIED Qualifiers : COPD type: unspecified COPD Qualified Code(s): J44.9 - Chronic obstructive pulmonary disease, unspecified; J44.9 - Chronic obstructive pulmonary disease, unspecified; J44.9 - Chronic obstructive pulmonary disease, unspecified; J44.9 - Chronic obstructive pulmonary disease, unspecified (3) Cough Code(s): R05 - COUGH (4) Lung cancer Code(s): C34.90 - MALIGNANT NEOPLASM OF UNSP PART OF UNSP BRONCHUS OR LUNG Qualifiers: Laterality: unspecified laterality Lung location: overlapping sites Qualified Code(s): C34.80 - Malignant neoplasm of overlapping sites of unspecified bronchus and lung; C34.80 - Malignant neoplasm of overlapping sites of unspecified bronchus and lung; C34.80 - Malignant neoplasm of overlapping sites of unspecified bronchus and lung; C34.80 - Malignant neoplasm of overlapping sites of unspecified bronchus and lung (5) Nicotine dependence Code(s): F17.200 - NICOTINE DEPENDENCE, UNSPECIFIED, UNCOMPLICATED
[2017-02-15] MEDS: busPIRone HCL 10 MG TABLET (FP) PO SCH ×2 (11:24→21:44)
[2017-02-15] MEDS: GABAPENTIN 400 MG CAPSULE (FP) PO SCH ×2 (11:27→21:44)
[2017-02-15] MEDS: THIAMINE HCL 100 MG TABLET (FP) PO SCH (11:27)
[2017-02-15] MEDS: CHOLECALCIFEROL (VITAMIN D3) 1,000 UNIT TABLET (FP) PO SCH (11:27)
[2017-02-15] MEDS: MULTIVITAMINS (DAILY MVI) TABLET (FP) PO SCH (11:27)
[2017-02-15] MEDS: ALLOPURINOL 100 MG TABLET (FP) PO SCH (11:30)
[2017-02-15] MEDS: amLODIPine BESYLATE 10 MG TABLET (FP) PO SCH (11:30)
[2017-02-15] MEDS: FOLIC ACID 1 MG TABLET (FP) PO SCH (11:30)
[2017-02-15] MEDS: ENOXAPARIN NA (PORCINE) 40 MG/0.4 ML DISP.SYRIN SQ SCH (11:42)
--- NOTE | 2017-02-15 15:17 | PN ---
Physical Exam: SUBJECTIVE: Patient seen and examined. Pt has no complaints. Pt feels well and is prepared for VATS procedure tomorrow. No events overnight. OBJECTIVE: Vital Signs Period Temp Pulse Resp BP Sys/Clay Pulse Ox Last 24 Hr 97.5 F-98.5 F 61-79 17-20 127-146/78-85 97-97 GENERAL: The patient is awake, alert, and fully oriented, in no acute distress. HEAD: Normal with no signs of trauma. NECK: Trachea midline, supple. LUNGS: Breath sounds equal, clear to auscultation bilaterally, no wheezes, no crackles, no accessory muscle use. HEART: Regular rate and rhythm, S1, S2 without murmur, rub or gallop. EXTREMITIES: Warm, well-perfused, no edema. PSYCH: Normal mood, normal affect. SKIN: Warm, dry, normal turgor, no rashes or lesions noted Laboratory Results - last 24 hr 02/14/17 15:40 Blood Type O POSITIVE Antibody Screen Negative Active Medications Generic Name Dose Route Start Last Admin Trade Name Freq PRN Reason Stop Dose Admin Allopurinol 100 mg 02/14/17 10:00 02/15/17 11:30 Zyloprim - PO 100 mg DAILY JUNIOR Administration Amlodipine Besylate 10 mg 02/14/17 10:00 02/15/17 11:30 Norvasc - PO 10 mg DAILY JUNIOR Administration Atorvastatin Calcium 10 mg 02/13/17 22:00 02/14/17 21:47 Lipitor - PO 10 mg HS JUNIOR Administration Buspirone HCl 30 mg 02/13/17 22:00 02/15/17 11:24 Buspar - PO 30 mg BID JUNIOR Administration Chlordiazepoxide HCl 15 mg 02/13/17 18:00 Librium - PO 02/14/17 18:01 Q6HPO PRN WITHDRAWAL(CONT SUBST) Cholecalciferol 2,000 unit 02/14/17 10:00 02/15/17 11:27 Vitamin D3 - PO 2,000 unit DAILY JUNIOR Administration Folic Acid 1 mg 02/14/17 10:00 02/15/17 11:30 Folic Acid - PO 1 mg DAILY JUNIOR Administration Gabapentin 800 mg 02/13/17 22:00 02/15/17 11:27 Neurontin - PO 800 mg BID JUNIOR Administration Lactated Ringer's 1,000 mls @ 125 mls/hr 02/13/17 13:44 02/14/17 16:21 Lactated Ringers Solution IV Not Given ASDIR JUNIOR Sodium Chloride 1,000 mls @ 100 mls/hr 02/13/17 13:44 02/14/17 16:24 Normal Saline - IV 100 mls/hr ASDIR JUNIOR Administration Multivitamins/Minerals/Vitamin C 1 tab 02/14/17 10:00 02/15/17 11:27 Tab-A-Vit - PO 1 tab DAILY JUNIOR Administration Quetiapine Fumarate 300 mg 02/13/17 16:30 02/14/17 16:22 Seroquel Xr - PO 300 mg ACDIN JUNIOR Administration Sertraline HCl 200 mg 02/13/17 16:30 02/14/17 16:22 Zoloft - PO 200 mg ACDIN JUNIOR Administration Thiamine HCl 100 mg 02/14/17 10:00 02/15/17 11:27 Vitamin B1 - PO 100 mg DAILY JUNIOR Administration ASSESSMENT/PLAN: 56yo M with PMH of current smoker (6 cigarettes/day), Right lung CA, CAD with 2 stents, htn, hld, gout, presented with worsening cough and sputum production and admitted to med-surg in preparation for lung biopsy and possible lung surgery. 1) newly diagnosed RUL adenocarcinoma - lung resection surgery scheduled for Thursday with Dr. Gilmore (Thoracic Surgery) - npo after midnight - Lovenox D/Michael after morning dose - blood cultures (-) x 96 hrs 2) Supraglottic lesion - s/p laryngoscopy biopsy revealing squamous cell Ca - ENT to follow (Dr. Bledsoe) - diet upgraded from puree to low sodium diet as pt has no difficulty swallowing 3) ETOH abuse - no signs of withdrawal - continue thiamine, folic acid, and MVI - Librium protocol prn - continue NS @ 100/ml 4) CAD s/p 2 stents - hold ASA - continue Lipitor 5) htn - continue Norvasc 6) hld - continue Lipitor 7) gout - continue Allopurinol 8) poor dentition - f/u as outpatient 10) FEN - Fluids: NS @ 100ml/hr - Electolytes: continue to monitor - Nutrition: low sodium diet, npo after midnight for VATS tomorrow morning 11) DVT Prophylaxis - Lovenox D/Michael after morning dose for VATS procedure on Thursday - sheree SCDs Visit type - Emergency Visit Emergency Visit: Yes ED Registration Date: 02/11/17 Care time: The patient presented to the Emergency Department on the above date and was hospitalized for further evaluation of their emergent condition. - New Patient This patient is new to me today: No - Critical Care Critical Care patient: No
--- NOTE | 2017-02-15 16:08 | PN ---
Teaching Attending Note Name of Resident: Gloria Zaldivar ATTENDING PHYSICIAN STATEMENT I saw and evaluated the patient. I reviewed the resident's note and discussed the case with the resident. I agree with the resident's findings and plan as documented. SUBJECTIVE: Comfortable with no acute distress, no shortness of breath, no fever or chills. OBJECTIVE: Vital Signs Temperature 97.7 F 02/15/17 14:50 Pulse Rate 70 02/15/17 14:50 Respiratory Rate 18 02/15/17 14:50 Blood Pressure 133/85 02/15/17 14:50 O2 Sat by Pulse Oximetry (%) 97 02/15/17 09:00 CBCD WBC 6.1 K/mm3 (4.0-10.0) 02/11/17 10:24 RBC 4.06 M/mm3 (4.00-5.60) 02/11/17 10:24 Hgb 13.3 GM/dL (11.7-16.9) 02/11/17 10:24 Hct 38.3 % (35.4-49) 02/11/17 10:24 MCV 94.3 fl (80-96) 02/11/17 10:24 MCHC 34.6 g/dl (32.0-35.9) 02/11/17 10:24 RDW 12.9 % (11.9-15.9) 02/11/17 10:24 Plt Count 197 K/MM3 (134-434) 02/11/17 10:24 MPV 8.1 fl (7.5-11.1) D 02/11/17 10:24 CMP Sodium 144 mmol/L (136-145) 02/13/17 06:30 Potassium 3.7 mmol/L (3.5-5.1) 02/13/17 06:30 Chloride 107 mmol/L (98-107) 02/13/17 06:30 Carbon Dioxide 28 mmol/L (21-32) 02/13/17 06:30 Anion Gap 9 (8-16) 02/13/17 06:30 BUN 7 mg/dL (7-18) D 02/13/17 06:30 Creatinine 0.8 mg/dL (0.7-1.3) 02/13/17 06:30 Creat Clearance w eGFR > 60 (>60) 02/13/17 06:30 Random Glucose 109 mg/dL (74-106) H 02/13/17 06:30 Calcium 8.1 mg/dL (8.5-10.1) L 02/13/17 06:30 Total Bilirubin 0.5 mg/dL (0.2-1.0) D 02/13/17 06:30 AST 36 U/L (15-37) D 02/13/17 06:30 ALT 35 U/L (12-78) D 02/13/17 06:30 Alkaline Phosphatase 52 U/L (45-117) 02/13/17 06:30 Total Protein 7.1 g/dl (6.4-8.2) 02/13/17 06:30 Albumin 3.3 g/dl (3.4-5.0) L 02/13/17 06:30 CARDIAC ENZYMES Creatine Kinase 71 IU/L (39-308) 02/11/17 10:24 Troponin I < 0.02 ng/ml (0.00-0.05) 02/11/17 10:24 Current Medications Generic Name Dose Route Start Last Admin Trade Name Freq PRN Reason Stop Dose Admin Allopurinol 100 mg 02/14/17 10:00 02/15/17 11:30 Zyloprim - PO 100 mg DAILY JUNIOR Administration Amlodipine Besylate 10 mg 02/14/17 10:00 02/15/17 11:30 Norvasc - PO 10 mg DAILY JUNIOR Administration Atorvastatin Calcium 10 mg 02/13/17 22:00 02/14/17 21:47 Lipitor - PO 10 mg HS JUNIOR Administration Buspirone HCl 30 mg 02/13/17 22:00 02/15/17 11:24 Buspar - PO 30 mg BID JUNIOR Administration Chlordiazepoxide HCl 15 mg 02/13/17 18:00 Librium - PO 02/14/17 18:01 Q6HPO PRN WITHDRAWAL(CONT SUBST) Cholecalciferol 2,000 unit 02/14/17 10:00 02/15/17 11:27 Vitamin D3 - PO 2,000 unit DAILY JUNIOR Administration Folic Acid 1 mg 02/14/17 10:00 02/15/17 11:30 Folic Acid - PO 1 mg DAILY JUNIOR Administration Gabapentin 800 mg 02/13/17 22:00 02/15/17 11:27 Neurontin - PO 800 mg BID JUNIOR Administration Lactated Ringer's 1,000 mls @ 125 mls/hr 02/13/17 13:44 02/14/17 16:21 Lactated Ringers Solution IV Not Given ASDIR JUNIOR Sodium Chloride 1,000 mls @ 100 mls/hr 02/13/17 13:44 02/14/17 16:24 Normal Saline - IV 100 mls/hr ASDIR JUNIOR Administration Multivitamins/Minerals/Vitamin C 1 tab 02/14/17 10:00 02/15/17 11:27 Tab-A-Vit - PO 1 tab DAILY JUNIOR Administration Quetiapine Fumarate 300 mg 02/13/17 16:30 02/14/17 16:22 Seroquel Xr - PO 300 mg ACDIN JUNIOR Administration Sertraline HCl 200 mg 02/13/17 16:30 02/14/17 16:22 Zoloft - PO 200 mg ACDIN JUNIOR Administration Thiamine HCl 100 mg 02/14/17 10:00 02/15/17 11:27 Vitamin B1 - PO 100 mg DAILY JUNIOR Administration Home Medications Medication Instructions Recorded Amlodipine Besylate 10 mg PO DAILY 12/23/16 Atorvastatin Ca [Lipitor] 10 mg PO HS 12/23/16 Gabapentin 800 mg PO TID 12/23/16 Quetiapine Fumarate "Xr" [Seroquel 300 mg PO ACDIN 12/23/16 Xr -] Sertraline HCl [Zoloft] 100 mg PO BID 12/23/16 Folic Acid 1 mg PO DAILY 01/02/17 Allopurinol [Zyloprim -] 100 mg PO DAILY 02/12/17 Aspirin [ASA -] 81 mg PO DAILY 02/12/17 PE:per resident's note ASSESSMENT AND PLAN: 56 M w/ CAD s/p 2 stents, gout, HTN, and dyslipidemia recently diagnosed Adenocarcinoma of the RUL. Diagnosis obtained by CT guided biopsy on 2016. 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 Planned for right lung VATS on thursday. #Right lung adenocarcinoma - Going for Right VAT procedure in am by Dr. Michael , pulmonary on the case. #Laryngeal SCC as per laryngoscopy findings. official pathology report is pending. -f/u with ENT and oncology for further management # Hx of CAD s/p 2 stents - hold ASA , continue statin #ETOH abuse- etoh level > 200 on admission, currently no signs of withdrawal, continue librium protocol, continue thiamine, folate , multivitamin #poor dentition- advised dental evaluation as an outpatient #S/p fall without any LOC, or trauma. head ct was done ; report no head bleed. -#DVT ppx :lovenox hold today's dose.
[2017-02-15] MEDS: SODIUM CHLORIDE 1,000 ML IV SCH ×2 (17:28→21:42)
[2017-02-15] MEDS: LACTATED RINGERS SOLUTION 1,000 ML IV SCH (17:28)
[2017-02-15] MEDS: SERTRALINE HCL 50 MG TABLET (FP) PO SCH (17:28)
[2017-02-15] MEDS ORDERED: PT OWN MED DRAWER 7, Y5N ONE (20:42)
[2017-02-15] MEDS: ATORVASTATIN CA 10 MG TABLET (FP) PO SCH (21:44)
[2017-02-16 06:53] LABS: INR 0.98 (0.82-1.09); PROTHROMBIN TIME (PATIENT) 11.1 SEC (9.98-11.88)
[2017-02-16 06:54] LABS: BASO % 1.4 % (0-2.0); EOS % 7.1 % (0-4.5); MCHC 34.3 g/dl (32.0-35.9); MEAN CELL VOLUME 96.3 fl (80-96); MEAN PLT VOLUME 8.9 fl (7.5-11.1); NEUT % 51.3 % (42.8-82.8); PLATELET COUNT 183 K/MM3 (134-434); RDW 13.4 % (11.9-15.9); WHITE BLOOD COUNT 6.3 K/mm3 (4.0-10.0)
[2017-02-16 06:56] LABS: ANION GAP 10 (8-16); CALCIUM 8.6 mg/dL (8.5-10.1); CO2 26 mmol/L (21-32); CREATININE 0.8 mg/dL (0.7-1.3); GLUCOSE,RANDOM 105 mg/dL (74-106); MAGNESIUM 1.6 mg/dL (1.8-2.4); PHOSPHOROUS 4.4 mg/dL (2.5-4.9)
[2017-02-16] MEDS ORDERED: PROPOFOL 20 ML ONE ×2 (07:16→09:41)
[2017-02-16] MEDS ORDERED: MIDAZOLAM HCL 2 MG/2 ML SINGLE DOSE VIAL ONE (07:17)
[2017-02-16] MEDS ORDERED: SUCCINYLCHOLINE CHLORIDE 200 MG/10 ML VIAL ONE (07:17)
[2017-02-16] MEDS ORDERED: ROCURONIUM BROMIDE 50 MG/5 ML VIAL ONE (07:17)
[2017-02-16] MEDS ORDERED: LIDOCAINE HCL/PF 2% SDV 5ML VIAL ONE (07:19)
[2017-02-16] MEDS ORDERED: BUPIVACAINE HCL/PF 0.5% (5MG/ML) 10 ML VIAL ONE (07:34)
[2017-02-16] MEDS ORDERED: BUPIVACAINE HCL/PF 0.25% (2.5MG/ML) 10 ML VIAL ONE ×2 (07:51→07:52)
[2017-02-16] MEDS ORDERED: LIDOCAINE 1%/EPI 1:100000 (20 ML MULTI DOSE VIAL) ONE (08:28)
[2017-02-16] MEDS ORDERED: ONDANSETRON 4 MG/2 ML VIAL ONE (08:28)
[2017-02-16] MEDS ORDERED: DEXAMETHASONE SOD PHOSPHATE 4 MG/1 ML VIAL ONE (08:28)
[2017-02-16] MEDS ORDERED: HEPARIN NA (PORCINE) 5,000 UNITS/ML 1ML VIAL ONE (08:30)
[2017-02-16] MEDS ORDERED: DESFLURANE GAS 240 ML BOTTLE IH ONE (08:30)
[2017-02-16] MEDS ORDERED: PT OWN MED DRAWER 7, Y5N ONE ×2 (08:33→20:25)
[2017-02-16] MEDS ORDERED: HYDROmorphone HCL/PF 1 MG/ML VIAL (FOR PYXIS CHARGING ONLY) ONE (08:37)
[2017-02-16] MEDS ORDERED: ceFAZolin SODIUM 1 GM VIAL ONE (08:38)
[2017-02-16] MEDS ORDERED: ceFAZolin SODIUM 1 GM VIAL IVPB ONE (08:39)
[2017-02-16] MEDS ORDERED: LIDOCAINE 1%/EPI 1:100000 (20 ML MULTI DOSE VIAL) INF ONE (08:50)
[2017-02-16] MEDS ORDERED: BUPIVACAINE HCL/PF 0.5% (5MG/ML) 10 ML VIAL IJ ONE (08:50)
[2017-02-16] MEDS ORDERED: GLYCOPYRROLATE 0.2 MG/1 ML VIAL ONE (09:33)
[2017-02-16] MEDS ORDERED: NEOSTIGMINE METHYLSULFATE 0.5 MG/ML - 10 ML MDV ONE (09:33)
[2017-02-16] MEDS ORDERED: ACETAMINOPHEN 1000 MG/100 ML VIAL (NON FORMULARY) IVPB ONE ×2 (10:23→12:00)
[2017-02-16] MEDS ORDERED: PROMETHAZINE HCL 25 MG/1 ML VIAL IVPUSH PRN ×2 (10:23→11:00)
[2017-02-16] MEDS ORDERED: LACTATED RINGERS SOLUTION 1,000 ML IV SCH (10:30)
[2017-02-16] MEDS ORDERED: HYDROmorphone HCL CARPU-JECT 2 MG/1 ML DISP.SYRIN ONE (10:37)
--- NOTE | 2017-02-16 10:37 | OP ---
Operative Note - Note: Operative Date: 02/16/17 Pre-Operative Diagnosis: Lung cancer Operation: Bronchoscopy, right vats, pneumolysis, wedge resection, mediastinal lymph node sampling, intercostal nerve block. Findings: Tumor in RUL; margin negative on frozen ~2cm; adhesions to mediastinum; pleural plaques; no tumor in airway. Post-Operative Diagnosis: Same as Pre-op Surgeon: Jose Gilmore ([facility]) Residential Appliance Repair Technician: Laura De La Cruz ([facility]) Anesthesia: General Specimens Removed: RUL; Right level 4 lymph node. Drains & Tubes with Location: Right chest tube.
[2017-02-16] MEDS: HYDROmorphone HCL CARPU-JECT 1 MG/1 ML DISP.SYRIN IVPUSH PRN ×4 (10:40→12:07)
[2017-02-16] MEDS ORDERED: HYDROmorphone HCL CARPU-JECT 1 MG/1 ML DISP.SYRIN IVPUSH PRN (11:00)
[2017-02-16] MEDS ORDERED: chlordiazePOXIDE 5 MG CAPSULE PO PRN (11:00)
[2017-02-16] MEDS ORDERED: IPRATROPIUM BR 0.02% 0.5 MG/2.5 ML VIAL.NEB. NEB STA (11:59)
[2017-02-16] MEDS ORDERED: oxyCODONE HCL 5 MG TABLET PO PRN (12:04)
[2017-02-16] MEDS ORDERED: ACETAMINOPHEN 325 MG TABLET (FP) PO PRN (12:04)
--- NOTE | 2017-02-16 12:10 | PN ---
Progress Note (short form) - Note Progress Note: Patient seen and examined. Recently diagnosed with pyriform sinus cancer for which resection is planned and reconstruction will be required. He is a 56 y/ o man s/p two coronary stents placed two years ago. Now presents with left throat pain when swallowing food or saliva. No hemoptysis, dyspnea, change in voice or weight loss. Solitary right lung nodule seen on imaging and FNA read as adenocarcinoma. Now s/p wedge resection of tumor by CT surgery- uncomplicated. PMH: hypertension, hypercholesterolemia, depression, CAD, ETOH on detox protocol PSH: hip replacement two years ago Meds: seroquil, neurontin, aspirin (held), meds for HTN and high cholesterol SH: previously smoke 1.5 ppd, now 1/4 ppd since age 17, drinks 2 pints of vodka daily and sometimes wine. 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 Likes to ride a bike and walk a lot. FH: no history of cancer ROS: Negative for any bleeding or coagulopathy, Chronic SOB, now with pain s/p thoracotomy, without recent mental status changes, recent history of weight gain or loss. Otherwise negative On examination no palpable mass. Poor dentition CTA with diminished sounds on right, chset tube in place S1S2 RRR Pectoralis muscles bilaterally intact Abd: s, nt Extr WWP, normal madison tests bilaterally with good filling from ulnar side. Adequate donor sites for ALT PET scan shows left laryngeal/supraglottic mass and right lung nodule Impression: diagnosed pharyngeal cancer and is planned for subtotal pharyngectomy on Thursday. Reconstructive plan will be for either radial forearm flap or ALT depending on the tissue requirements. Back-up is a myocutaneous pectoralis flap. i have discussed this with the patient and he understands the procedure and the risks.
[2017-02-16] MEDS: LACTATED RINGERS SOLUTION 1,000 ML IV SCH (12:30)
[2017-02-16] MEDS ORDERED: MAGNESIUM SULF 50% (8.12 MEQ/2 ML-1 GM VIAL) IVPB ONE (13:45)
--- NOTE | 2017-02-16 14:00 | OPR ---
Patient Name: Iván Downs MR#: [id number] Procedure Date: 02/16/2017 Preoperative Diagnosis: Right lung cancer Postoperative Diagnosis: same Procedure: 1. Bronchoscopy; 2. Right VATS pneumolysis; 3. Right upper lobe wedge resection; 4. Mediastinal lymph node sampling; 5. Intercostal nerve block. Indication: Diagnosis. CoSurgeon(s): Jose Gilmore MD CoSurgeon: Laura De La Cruz MD Upper Leather Sorter Surgeon: livier Anesthesia: General with intercostal nerve black. Findings: 1. Bronchoscopy: Normal; 2. VATS: benign pleural plaques; RUL tumor; adhesions to mediastinum; 3. Frozen section: deep margin negative on frozen; Specimens Sent: RUL wedge for frozen and pathology with margin. Complications: none Drains / Tubes / Catheters: 1 chest tubes. Hardware / Implants: na Blood / Fluid Losses: 75cc. Post-Operative Condition: Hemodynamically stable in transfer to PACU Indications: This patient is a 56 year-old male smoker and ETOH abuser who was referred to me from Dr. Manjarrez and Dr. Grossman after a lung biopsy showed a lung cancer. Of note, a PET scan in July, showed a PET avid lesion in the left supraglottic lesion as well. His follow-up was poor, seemingly due to his ETOH abuse. However, he was presented at tumor board and a plan including biopsy of the supraglottic area was discussed. He was admitted and biopsied by Dr. Fabio Bledsoe and found to have a squamous cell carcinoma. We then discussed a staged plan with him beginning with the right upper lobe resection. After discussion and consideration of risks, benefits, and alternatives with the patient he agreed to the procedure. The patient understood the risks and benefits. Details of Procedure: The patient was taken into the operating room and placed supine on the table. He was monitored with pulse oximetry and blood pressure monitoring. He was given sedation and then intubated. Preoperative antibiotics and subcutaneous heparin were given. A double-lumen was placed. I then performed a bronchoscopy. Findings are listed above. Next we positioned. His right chest was prepared and draped in standard surgical fashion. Three ports were created after giving local anesthesia. There were multiple benign pleural plaques. Pneumolysis was performed of a RUL adhesion to the mediastinum. We then identified the lesion and performed a wedge resection. It was removed with a bag and inspected. The margin was greater than 2cm and the deep margin was sent for frozen. Next, we obtained hemostasis. We then performed an intercostal nerve block using lidocaine and bupivicane from the 3rd interspace to the 8th interspace. Hemostasis was then checked again. Next we placed a chest tube and secured it. The lung was inflated. The incisions were closed and dressings were placed. He was extubated and transferred to the PACU in hemodynamically stable condition. Dr. De La Cruz was present throughout the procedure and was necessary as there was no qualified help available. He was instrumental in organizing the placement of ports and assisting during the wedge-resection and we were both available postoperatively.
[2017-02-16] MEDS ORDERED: LIDOCAINE HCL 2% JELLY (5 ML/TUBE) TP ONE (15:09)
--- NOTE | 2017-02-16 15:12 | PN ---
Teaching Attending Note Name of Resident: Hugo Weinstein ATTENDING PHYSICIAN STATEMENT I saw and evaluated the patient. I reviewed the resident's note and discussed the case with the resident. I agree with the resident's findings and plan as documented. SUBJECTIVE: Patient seen and examined in the ICU. S/P bronchoscopy, Right VATS, pneumolysis , RUL wedge resection, LN sampling, & Intercostal nerve block Lethargic but easily arousable. Denies CP or SOB. CT: No air leak, minimal output. Intake & Output 02/13/17 02/14/17 02/15/17 02/16/17 23:59 23:59 23:59 23:59 Intake Total 2225 1240 1140 1300 Output Total 1260 1000 400 675 Balance 965 240 740 625 Last Vital Signs Temp Pulse Resp BP Pulse Ox 97.8 F 71 18 123/75 97 02/16/17 13:44 02/16/17 14:25 02/16/17 13:44 02/16/17 13:44 02/16/17 14:25 Active Medications Acetaminophen (Tylenol -) 650 mg PO Q4H PRN PRN Reason: SEVERE PAIN 6-10 Stop: 02/20/17 11:52 Acetaminophen (Tylenol -) 325 mg PO Q4H PRN PRN Reason: MILD PAIN 1-5 Stop: 02/20/17 12:03 Allopurinol (Zyloprim -) 100 mg PO DAILY JUNIOR Amlodipine Besylate (Norvasc -) 10 mg PO DAILY JUNIOR Atorvastatin Calcium (Lipitor -) 10 mg PO HS JUNIOR Buspirone HCl (Buspar -) 30 mg PO BID JUNIOR Chlordiazepoxide HCl (Librium -) 15 mg PO Q6HPO PRN PRN Reason: WITHDRAWAL(CONT SUBST) Stop: 02/17/17 00:01 Cholecalciferol (Vitamin D3 -) 2,000 unit PO DAILY JUNIOR Folic Acid (Folic Acid -) 1 mg PO DAILY JUNIOR Gabapentin (Neurontin -) 800 mg PO BID JUNIOR Heparin Sodium (Porcine) (Heparin -) 5,000 unit SQ BID JUNIOR Hydromorphone HCl (Dilaudid Injection -) 0.5 mg IVPUSH [id number] PRN PRN Reason: PAIN Stop: 02/19/17 11:01 Lactated Ringer's (Lactated Ringers Solution) 1,000 mls @ 75 mls/hr IV ASDIR JUNIOR Last Admin: 02/16/17 12:30 Dose: 0 mls Lidocaine HCl (Xylocaine 2% Jelly) 1 applic TP ONCE ONE Stop: 02/16/17 15:10 Multivitamins/Minerals/Vitamin C (Tab-A-Vit -) 1 tab PO DAILY JUNIOR Oxycodone HCl (Roxicodone -) 10 mg PO Q4H PRN PRN Reason: SEVERE PAIN 6-10 Stop: 02/20/17 11:52 Oxycodone HCl (Roxicodone -) 5 mg PO Q4H PRN PRN Reason: MILD PAIN 1-5 Stop: 02/20/17 12:03 Promethazine HCl (Phenergan Injection -) 12.5 mg IVPUSH Q6H PRN PRN Reason: NAUSEA-FOR RESCUE AFTER 15 MIN Stop: 02/16/17 16:24 Quetiapine Fumarate (Seroquel Xr -) 300 mg PO ACDIN JUNIOR Sertraline HCl (Zoloft -) 200 mg PO ACDIN JUNIOR Thiamine HCl (Vitamin B1 -) 100 mg PO DAILY JUNIOR Constitutional: Yes: Sleepy, NAD Eyes: Yes: WNL, Conjunctiva Clear, EOM Intact HENT: Yes: Atraumatic, Normocephalic Neck: Yes: Supple, Trachea Midline Cardiovascular: Yes: Regular Rate and Rhythm Respiratory: Yes: Right CT, no air leak ...Inspection: Yes: WNL ...Clubbing: No Gastrointestinal: Yes: Normal Bowel Sounds, Soft, Abdomen, Obese Renal/: Yes: WNL Musculoskeletal: Yes: WNL Extremities: Yes: WNL Edema: No Peripheral Pulses WNL: Yes Integumentary: Yes: WNL Neurological: Yes: WNL, Alert, Oriented ...Motor Strength: WNL Psychiatric: Yes: WNL, Alert, Oriented Labs: Laboratory Results - last 24 hr 02/16/17 02/16/17 02/16/17 05:35 05:35 05:35 WBC 6.3 RBC 3.93 L Hgb 13.0 Hct 37.8 MCV 96.3 H MCH 33.0 MCHC 34.3 RDW 13.4 Plt Count 183 MPV 8.9 Neutrophils % 51.3 Lymphocytes % 30.7 Monocytes % 9.5 Eosinophils % 7.1 H Basophils % 1.4 PT with INR 11.10 INR 0.98 Sodium 143 Potassium 3.9 Chloride 107 Carbon Dioxide 26 Anion Gap 10 BUN 9 D Creatinine 0.8 Random Glucose 105 Calcium 8.6 Phosphorus 4.4 D Magnesium 1.6 L Problem List - Problems (1) Alcohol dependence Code(s): F10.20 - ALCOHOL DEPENDENCE, UNCOMPLICATED Qualifiers: Substance use status: with intoxication Complication of substance- induced condition: with unspecified complication Qualified Code(s): F10.229 - Alcohol dependence with intoxication, unspecified; F10.229 - Alcohol dependence with intoxication, unspecified; F10.229 - Alcohol dependence with intoxication, unspecified (2) COPD (chronic obstructive pulmonary disease) Code(s): J44.9 - CHRONIC OBSTRUCTIVE PULMONARY DISEASE, UNSPECIFIED Qualifiers : COPD type: unspecified COPD Qualified Code(s): J44.9 - Chronic obstructive pulmonary disease, unspecified; J44.9 - Chronic obstructive pulmonary disease, unspecified; J44.9 - Chronic obstructive pulmonary disease, unspecified; J44.9 - Chronic obstructive pulmonary disease, unspecified (3) Cough Code(s): R05 - COUGH (4) Lung cancer Code(s): C34.90 - MALIGNANT NEOPLASM OF UNSP PART OF UNSP BRONCHUS OR LUNG Qualifiers: Laterality: unspecified laterality Lung location: overlapping sites Qualified Code(s): C34.80 - Malignant neoplasm of overlapping sites of unspecified bronchus and lung; C34.80 - Malignant neoplasm of overlapping sites of unspecified bronchus and lung; C34.80 - Malignant neoplasm of overlapping sites of unspecified bronchus and lung; C34.80 - Malignant neoplasm of overlapping sites of unspecified bronchus and lung (5) Nicotine dependence Code(s): F17.200 - NICOTINE DEPENDENCE, UNSPECIFIED, UNCOMPLICATED (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 Problem List - Problems (1) Alcohol dependence Code(s): F10.20 - ALCOHOL DEPENDENCE, UNCOMPLICATED Qualifiers: Substance use status: with intoxication Complication of substance- induced condition: with unspecified complication Qualified Code(s): F10.229 - Alcohol dependence with intoxication, unspecified; F10.229 - Alcohol dependence with intoxication, unspecified; F10.229 - Alcohol dependence with intoxication, unspecified (2) COPD (chronic obstructive pulmonary disease) Code(s): J44.9 - CHRONIC OBSTRUCTIVE PULMONARY DISEASE, UNSPECIFIED Qualifiers : COPD type: unspecified COPD Qualified Code(s): J44.9 - Chronic obstructive pulmonary disease, unspecified; J44.9 - Chronic obstructive pulmonary disease, unspecified; J44.9 - Chronic obstructive pulmonary disease, unspecified; J44.9 - Chronic obstructive pulmonary disease, unspecified (3) Cough Code(s): R05 - COUGH (4) Lung cancer Code(s): C34.90 - MALIGNANT NEOPLASM OF UNSP PART OF UNSP BRONCHUS OR LUNG Qualifiers: Laterality: unspecified laterality Lung location: overlapping sites Qualified Code(s): C34.80 - Malignant neoplasm of overlapping sites of unspecified bronchus and lung; C34.80 - Malignant neoplasm of overlapping sites of unspecified bronchus and lung; C34.80 - Malignant neoplasm of overlapping sites of unspecified bronchus and lung; C34.80 - Malignant neoplasm of overlapping sites of unspecified bronchus and lung (5) Nicotine dependence Code(s): F17.200 - NICOTINE DEPENDENCE, UNSPECIFIED, UNCOMPLICATED
[2017-02-16] MEDS ORDERED: MAGNESIUM SULF 50% (8.12 MEQ/2 ML-1 GM VIAL) ONE (15:49)
--- NOTE | 2017-02-16 16:02 | CONSULT ---
Consultation: REQUESTING PROVIDER: CONSULT REQUEST: Pulm/crit care We have been asked to medically evaluate this patient for ICU Management. HISTORY OF PRESENT ILLNESS: This is a 56 y/o M with h/o R lung CA, CAD s/p 2 stents (after found to have 80 % blockage), HTN, HLD, who was initially sent to the ED by his surgeon (Dr. Gilmore) for suspected new lung cancer. Patient c/o worsening cough and throat pain with increasing sputum production 2-3 weeks prior to admission. He states that at the time, his sputum was clear, yellow, w/o blood, and his cough was not a/w chest pain. He denied SOB, fever, chills, weight changes, urinary or bowel symptoms. While on the floor, pt was diagnosed with Adenocarcinoma of the RUL. Diagnosis obtained by CT guided biopsy on 01/29/2017. 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 Patient was transferred to ICU for further monitoring. He is currently S/P bronchoscopy, Right VATS, pneumolysis, RUL wedge resection, LN sampling, & Intercostal nerve block (procedure done today- 02/16/17). Today, in ICU, pt has no complaints. Denies cough, fever, chest pain. On face tent for 02 delivery, sat 97%. While he is AAOx3, he endorses intermittent confusion. REVIEW OF SYSTEMS: CONSTITUTIONAL: Absent: fever, chills, diaphoresis, generalized weakness, malaise, loss of appetite, weight change HEENT: Absent: rhinorrhea, nasal congestion, throat pain, throat swelling, difficulty swallowing, mouth swelling, ear pain, eye pain, visual changes CARDIOVASCULAR: Absent: chest pain, syncope, palpitations, irregular heart rate, lightheadedness , peripheral edema RESPIRATORY: Absent: cough, shortness of breath, dyspnea with exertion, orthopnea, wheezing, stridor, hemoptysis GASTROINTESTINAL: Absent: abdominal pain, abdominal distension, nausea, vomiting, diarrhea, constipation, melena, hematochezia GENITOURINARY: Absent: dysuria, frequency, urgency, hesitancy, hematuria, flank pain, genital pain MUSCULOSKELETAL: Absent: myalgia, arthralgia, joint swelling, back pain, neck pain SKIN: Absent: rash, itching, pallor HEMATOLOGIC/IMMUNOLOGIC: Absent: easy bleeding, easy bruising, lymphadenopathy, frequent infections ENDOCRINE: Absent: unexplained weight gain, unexplained weight loss, heat intolerance, cold intolerance NEUROLOGIC: Absent: headache, focal weakness or paresthesias, dizziness, unsteady gait, seizure, mental status changes, bladder or bowel incontinence PSYCHIATRIC: Absent: anxiety, depression, suicidal or homicidal ideation, hallucinations. PHYSICAL EXAMINATION Vital Signs - 24 hr 02/15/17 02/15/17 02/15/17 18:00 21:00 21:49 Temperature 97.8 F 98.4 F Pulse Rate 82 72 Respiratory 20 18 18 Rate Blood Pressure 137/89 138/85 O2 Sat by Pulse 97 Oximetry (%) 02/16/17 02/16/17 02/16/17 05:00 13:44 14:25 Temperature 97.4 F L 97.8 F Pulse Rate 67 68 71 Respiratory 18 18 Rate Blood Pressure 145/89 123/75 O2 Sat by Pulse 97 Oximetry (%) GENERAL: Awake, alert, confused intermittently, but AAOx3. In no acute distress. on face tent for HEAD: Normal with no signs of trauma. EYES: Pupils equal, round and reactive to light, extraocular movements intact, sclera anicteric, conjunctiva clear. EARS, NOSE, THROAT: Ears normal, nares patent, oropharynx clear without exudates. NECK: Normal range of motion LUNGS: Breath sounds equal, clear to auscultation bilaterally. No wheezes, and no crackles. HEART: Regular rate and rhythm, normal S1 and S2 without murmur, rub or gallop. ABDOMEN: Soft, nontender, not distended, normoactive bowel sounds, no guarding, no rebound, no masses. MUSCULOSKELETAL: Normal range of motion at all joints. No bony deformities or tenderness. UPPER EXTREMITIES: 2+ radial pulses, warm, well-perfused. No peripheral edema. LOWER EXTREMITIES: 2+ posterior tibial pulses, warm, well-perfused. No calf tenderness. No peripheral edema. NEUROLOGICAL: Cranial nerves II-XII intact. Laboratory Results - last 24 hr 02/16/17 02/16/17 02/16/17 05:35 05:35 05:35 WBC 6.3 RBC 3.93 L Hgb 13.0 Hct 37.8 MCV 96.3 H MCH 33.0 MCHC 34.3 RDW 13.4 Plt Count 183 MPV 8.9 Neutrophils % 51.3 Lymphocytes % 30.7 Monocytes % 9.5 Eosinophils % 7.1 H Basophils % 1.4 PT with INR 11.10 INR 0.98 Sodium 143 Potassium 3.9 Chloride 107 Carbon Dioxide 26 Anion Gap 10 BUN 9 D Creatinine 0.8 Random Glucose 105 Calcium 8.6 Phosphorus 4.4 D Magnesium 1.6 L Active Medications Generic Name Dose Route Start Last Admin Trade Name Freq PRN Reason Stop Dose Admin Acetaminophen 650 mg 02/16/17 11:53 Tylenol - PO 02/20/17 11:52 Q4H PRN SEVERE PAIN 6-10 Acetaminophen 325 mg 02/16/17 12:04 Tylenol - PO 02/20/17 12:03 Q4H PRN MILD PAIN 1-5 Albuterol/Ipratropium 1 amp 02/16/17 18:00 Duoneb - NEB QIDR [facility] Allopurinol 100 mg 02/17/17 10:00 Zyloprim - PO DAILY [facility] Amlodipine Besylate 10 mg 02/17/17 10:00 Norvasc - PO DAILY [facility] Atorvastatin Calcium 10 mg 02/16/17 22:00 Lipitor - PO HS [facility] Buspirone HCl 30 mg 02/16/17 22:00 Buspar - PO BID [facility] Chlordiazepoxide HCl 15 mg 02/16/17 11:00 Librium - PO 02/17/17 00:01 Q6HPO PRN WITHDRAWAL(CONT SUBST) Cholecalciferol 2,000 unit 02/17/17 10:00 Vitamin D3 - PO DAILY [facility] Folic Acid 1 mg 02/17/17 10:00 Folic Acid - PO DAILY [facility] Gabapentin 800 mg 02/16/17 22:00 Neurontin - PO BID [facility] Heparin Sodium (Porcine) 5,000 unit 02/16/17 22:00 Heparin - SQ BID [facility] Hydromorphone HCl 0.5 mg 02/16/17 11:00 Dilaudid Injection - IVPUSH 02/19/17 11:01 [id number] PRN PAIN Lactated Ringer's 1,000 mls @ 75 mls/hr 02/16/17 11:00 02/16/17 12:30 Lactated Ringers Solution IV 0 mls ASDIR [facility] Administration Multivitamins/Minerals/Vitamin C 1 tab 02/17/17 10:00 Tab-A-Vit - PO DAILY [facility] Oxycodone HCl 10 mg 02/16/17 11:53 Roxicodone - PO 02/20/17 11:52 Q4H PRN SEVERE PAIN 6-10 Oxycodone HCl 5 mg 02/16/17 12:04 Roxicodone - PO 02/20/17 12:03 Q4H PRN MILD PAIN 1-5 Promethazine HCl 12.5 mg 02/16/17 11:00 Phenergan Injection - IVPUSH 02/16/17 16:24 Q6H PRN NAUSEA-FOR RESCUE AFTER 15 MIN Quetiapine Fumarate 300 mg 02/16/17 16:30 Seroquel Xr - PO [facility]IN [facility] Sertraline HCl 200 mg 02/16/17 16:30 Zoloft - PO [facility] Thiamine HCl 100 mg 02/17/17 10:00 Vitamin B1 - PO DAILY [facility] ASSESSMENT/PLAN: This is a 56 y/o M with h/o R lung CA, CAD s/p 2 stents (after found to have 80 % blockage), HTN, HLD, who was initially sent to the ED by his surgeon (Dr. Gilmore) for suspected new lung cancer. Patient c/o worsening cough and throat pain with increasing sputum production 2-3 weeks prior to admission. He states that at the time, his sputum was clear, yellow, w/o blood, and his cough was not a/w chest pain. He denied SOB, fever, chills, weight changes, urinary or bowel symptoms. Pt is currently in ICU, and is S/P bronchoscopy, Right VATS, pneumolysis, RUL wedge resection, LN sampling, & Intercostal nerve block ( procedure done today- 02/16/17). PULM #Right lung adenocarcinoma -s/p bronchoscopy, R VATS, pneumolysis, RUL wedge resection, LN sampling, & Intercostal Nerve block (PO Day 0) -pt denies current fever, chills, cough or chest pain -diet has been advanced to clear liquids, will see how he tolerates -on face tent for 02 delivery, current sat 97% -encourage incentive spirometry usage -Continue duonebs PRN -Hydromorphone 0.5mg IVP, oxycodone 10mg PO q4h PRN, 5mg PO q4hPRN, tylenol for pain control -monitor chest tube output #Laryngeal SCC as per laryngoscopy findings -official pathology report is pending -f/u with ENT and oncology for further management CARDIO # Hx of CAD s/p 2 stents -hold ASA , continue lipitor 10mg PO HS #HTN- controlled -Continue norvasc 10mg PO qd NEURO #ETOH abuse- EtOH level > 200 on admission -pt endorses intermittent confusion, though AAOx3 -continue librium protocol, thiamine, folate , multivitamin RHEUM #Gout -continue allopurinol 100mg qd OTHER #Poor dentition- -dental evaluation as an outpatient #DVT ppx : -restarted on Heparin 5000 u SQ BID (to start tonight) #F/E/N currently on LR 75 mls/hr hypomagnesemia: repleted with Mg sulfate 2gm IVPB advancing to clear liquid diet #Tubes and lines -Chest tube #Disposition Continued monitoring in the ICU We will continue to follow the patient. Thank you for this consultative opportunity. Mallory Ma MD PGY-1 ICU team Visit type - Emergency Visit Emergency Visit: No - New Patient This patient is new to me today: Yes Date on this admission: 02/16/17 - Critical Care Critical Care patient: Yes Total Critical Care Time (in minutes): 42 Critical Care Statement: The care of this patient involved high complexity decision making to prevent further life threatening deterioration of the patient 's condition and/or to evaluate & treat vital organ system(s) failure or risk of failure.
--- NOTE | 2017-02-16 16:35 | PATH ---
Surgical Pathology Report Patient Name: [facility]EVIN [facility]. Rec. #: [id number] /Age/Gender: 1960 (Age: 56) / M Account: [id number] Location: [facility] MED/SURG Taken: 02/13/2017 Received: 02/13/2017 Reported: 02/16/2017 Physicians: Maddie Ryan M.D. Specimen(s) Received A: LEFT PYRIFORM SINUS TUMOR B: LEFT PYRIFORM SINUS TUMOR LATERAL WALL C: LEFT PYRIFORM SINUS TUMOR MEDIAL WALL D: LEFT PYRIFORM SINUS TUMOR POSTERIOR WALL Clinical History Pharyngeal mass Intraoperative Consult Diagnosis Left pyriform sinus tumor, frozen section: Squamous cell carcinoma. By Dr. Marks, February 13, 2017 Final Diagnosis A. PYRIFORM SINUS, TUMOR, LEFT, EXCISION (FS): SQUAMOUS CELL CARCINOMA, MODERATE TO POORLY DIFFERENTIATED. B. PYRIFORM SINUS, TUMOR, LEFT, LATERAL WALL, EXCISION: SQUAMOUS CELL CARCINOMA, MODERATE TO POORLY DIFFERENTIATED. C. PYRIFORM SINUS TUMOR, LEFT, MEDIAL WALL, EXCISION: SQUAMOUS CELL CARCINOMA, MODERATE TO POORLY DIFFERENTIATED. D. PYRIFORM SINUS TUMOR, LEFT, POSTERIOR WALL, EXCISION: SQUAMOUS CELL CARCINOMA, MODERATE TO POORLY DIFFERENTIATED. Comment: Immunohistochemical stains performed and interpreted at [facility] show the following results: tumor is positive for p63 and focally for CK7. TTF-1 immunohistochemical stain is negative. See prior ([id number]) and concurrent ([id number]) materials from the lung. Additional stain for p16 and in situ hybridization for HPV (high risk) are pending and will be reported as an addendum. Electronically Signed Christina Anderson M.D. Addendum Reported: 02/19/2017 Addendum Diagnosis Immunohistochemical stain performed at [place], [place] ([id number]) and interpreted at [facility] show p16 is negative (rare, weak staining). In situ hybridization for high risk HPV (16/18) performed and interpreted at [place], [place] ([id number]) is negative. Christina Anderson M.D. Gross Description A. Received fresh for frozen section labeled "left pyriform sinus tumor" are 2 pieces of ortiz tissue each of which is 0.3 cm in greatest dimension. The specimen is frozen in its entirety the frozen remainder is submitted in one cassette. B. Received in formalin, labeled "left pyriform sinus tumor lateral wall" are 2 henderson, irregular portions of soft tissue measuring 0.5 cm. in greatest dimension. The specimens are submitted in toto in one cassette. C. Received in formalin, labeled "left pyriform sinus tumor medial wall" are 3 henderson, irregular portions of soft tissue measuring 0.2-0.4 cm. in greatest dimension. The specimens are submitted in toto in one cassette. D. Received in formalin, labeled "left ear forms sinus tumor posterior wall" are 2 henderson, irregular portions of soft tissue measuring 0.3-0.4 cm. in greatest dimension. The specimens are submitted in toto in one cassette. [facility]/02/13/2017 [facility]/02/13/2017
--- NOTE | 2017-02-16 17:27 | PN ---
Physical Exam: SUBJECTIVE: Patient seen and examined OBJECTIVE: Vital Signs Period Temp Pulse Resp BP Sys/Clay Pulse Ox Last 24 Hr 97.4 F-98.4 F 67-82 18-20 123-145/75-89 97-97 GENERAL: The patient is awake, alert, and fully oriented, in no acute distress. HEAD: Normal with no signs of trauma. NECK: Trachea midline, supple. LUNGS: Breath sounds equal, clear to auscultation bilaterally, no wheezes, no crackles, no accessory muscle use. HEART: Regular rate and rhythm, S1, S2 without murmur, rub or gallop. ABDOMEN: Soft, nontender, nondistended. EXTREMITIES: Warm, well-perfused, no edema. PSYCH: Normal mood, normal affect. SKIN: Warm, dry, normal turgor, no rashes or lesions noted Laboratory Results - last 24 hr 02/16/17 02/16/17 02/16/17 05:35 05:35 05:35 WBC 6.3 RBC 3.93 L Hgb 13.0 Hct 37.8 MCV 96.3 H MCH 33.0 MCHC 34.3 RDW 13.4 Plt Count 183 MPV 8.9 Neutrophils % 51.3 Lymphocytes % 30.7 Monocytes % 9.5 Eosinophils % 7.1 H Basophils % 1.4 PT with INR 11.10 INR 0.98 Sodium 143 Potassium 3.9 Chloride 107 Carbon Dioxide 26 Anion Gap 10 BUN 9 D Creatinine 0.8 Random Glucose 105 Calcium 8.6 Phosphorus 4.4 D Magnesium 1.6 L Active Medications Generic Name Dose Route Start Last Admin Trade Name Freq PRN Reason Stop Dose Admin Acetaminophen 650 mg 02/16/17 11:53 Tylenol - PO 02/20/17 11:52 Q4H PRN SEVERE PAIN 6-10 Acetaminophen 325 mg 02/16/17 12:04 Tylenol - PO 02/20/17 12:03 Q4H PRN MILD PAIN 1-5 Albuterol/Ipratropium 1 amp 02/16/17 18:00 Duoneb - NEB QIDR [facility] Allopurinol 100 mg 02/17/17 10:00 Zyloprim - PO DAILY [facility] Amlodipine Besylate 10 mg 02/17/17 10:00 Norvasc - PO DAILY [facility] Atorvastatin Calcium 10 mg 02/16/17 22:00 Lipitor - PO HS [facility] Buspirone HCl 30 mg 02/16/17 22:00 Buspar - PO BID [facility] Chlordiazepoxide HCl 15 mg 02/16/17 11:00 Librium - PO 02/17/17 00:01 Q6HPO PRN WITHDRAWAL(CONT SUBST) Cholecalciferol 2,000 unit 02/17/17 10:00 Vitamin D3 - PO DAILY [facility] Folic Acid 1 mg 02/17/17 10:00 Folic Acid - PO DAILY [facility] Gabapentin 800 mg 02/16/17 22:00 Neurontin - PO BID [facility] Heparin Sodium (Porcine) 5,000 unit 02/16/17 22:00 Heparin - SQ BID [facility] Hydromorphone HCl 0.5 mg 02/16/17 11:00 Dilaudid Injection - IVPUSH 02/19/17 11:01 [id number] PRN PAIN Lactated Ringer's 1,000 mls @ 75 mls/hr 02/16/17 11:00 02/16/17 12:30 Lactated Ringers Solution IV 0 mls ASDIR [facility] Administration Multivitamins/Minerals/Vitamin C 1 tab 02/17/17 10:00 Tab-A-Vit - PO DAILY [facility] Oxycodone HCl 10 mg 02/16/17 11:53 Roxicodone - PO 02/20/17 11:52 Q4H PRN SEVERE PAIN 6-10 Oxycodone HCl 5 mg 02/16/17 12:04 Roxicodone - PO 02/20/17 12:03 Q4H PRN MILD PAIN 1-5 Quetiapine Fumarate 300 mg 02/16/17 16:30 Seroquel Xr - PO ACDIN [facility] Sertraline HCl 200 mg 02/16/17 16:30 Zoloft - PO ACDIN [facility] Thiamine HCl 100 mg 02/17/17 10:00 Vitamin B1 - PO DAILY [facility] ASSESSMENT/PLAN: 56yo M with PMH of current smoker (6 cigarettes/day), Right lung CA, CAD with 2 stents, htn, hld, gout, presented with worsening cough and sputum production and admitted to med-surg in preparation for lung biopsy and possible lung surgery. 1) newly diagnosed RUL adenocarcinoma - lung resection surgery scheduled today with Dr. Gilmore (Thoracic Surgery) - Bronchoscopy -> Right VATS -> wedge resection, mediastinal lymph node sampling, intercostal nerve block - Findings: Tumor in RUL, no tumor in airway. Adhesions to mediastinum. Pleural plaques. - pt transferred to ICU - Dilaudid/Oxycodone for pain - incentive spirometry - O2 prn 2) Supraglottic lesion - s/p laryngoscopy biopsy revealing squamous cell Ca - planned for subtotal pharyngectomy on Thursday 3) ETOH abuse - no signs of withdrawal - continue thiamine, folic acid, and MVI - Librium protocol prn 4) CAD s/p 2 stents - hold ASA - continue Lipitor 5) htn - continue Norvasc 6) hld - continue Lipitor 7) gout - continue Allopurinol 8) poor dentition - f/u as outpatient 10) FEN - Fluids: LR @ 75ml/hr - Electolytes: continue to monitor - Nutrition: clear liquids 11) DVT Prophylaxis - Heparin 5,000U SQ BID - sheree SCDs Visit type - Emergency Visit Emergency Visit: Yes ED Registration Date: 02/11/17 Care time: The patient presented to the Emergency Department on the above date and was hospitalized for further evaluation of their emergent condition. - New Patient This patient is new to me today: No - Critical Care Critical Care patient: No
[2017-02-16] MEDS: ALBUTEROL SO4 2.5/IPRATROPIUM 0.5 INH SOL 3 ML VIAL.NEB. NEB SCH ×2 (17:28→23:59)
[2017-02-16] MEDS: SERTRALINE HCL 50 MG TABLET (FP) PO SCH (18:11)
[2017-02-16] MEDS: oxyCODONE HCL 5 MG TABLET PO PRN (18:13)
[2017-02-16] MEDS ORDERED: oxyCODONE HCL 5 MG TABLET PO ONE (20:31)
[2017-02-16] MEDS ORDERED: ACETAMINOPHEN 325 MG TABLET (FP) PO ONE (20:31)
[2017-02-16] MEDS: CHLORHEXIDINE GLUCONATE 4% CLEANSER FOR DECOLONIZATION TP SCH (22:00)
[2017-02-16] MEDS: ATORVASTATIN CA 10 MG TABLET (FP) PO SCH (23:38)
[2017-02-16] MEDS: HEPARIN NA (PORCINE) 5,000 UNITS/ML 1ML VIAL SQ SCH (23:39)
[2017-02-16] MEDS: GABAPENTIN 400 MG CAPSULE (FP) PO SCH (23:39)
[2017-02-16] MEDS: MUPIROCIN 2% TOPICAL OINTMENT FOR DECOLONIZATION NS SCH (23:40)
[2017-02-16] MEDS: busPIRone HCL 10 MG TABLET (FP) PO SCH (23:41)
[2017-02-17] MEDS: oxyCODONE HCL 5 MG TABLET PO PRN ×2 (05:59→23:46)
[2017-02-17] MEDS: ACETAMINOPHEN 325 MG TABLET (FP) PO PRN ×2 (06:01→23:47)
[2017-02-17 06:17] LABS: BASO % 0.4 % (0-2.0); EOS % 0.7 % (0-4.5); MCH 32.9 pg (25.7-33.7); MCHC 34.8 g/dl (32.0-35.9); MEAN CELL VOLUME 94.6 fl (80-96); MEAN PLT VOLUME 9.3 fl (7.5-11.1); NEUT % 68.8 % (42.8-82.8); PLATELET COUNT 170 K/MM3 (134-434); RDW 13.1 % (11.9-15.9); WHITE BLOOD COUNT 8.5 K/mm3 (4.0-10.0)
[2017-02-17] MEDS: ALBUTEROL SO4 2.5/IPRATROPIUM 0.5 INH SOL 3 ML VIAL.NEB. NEB SCH ×3 (06:27→19:19)
[2017-02-17 06:42] LABS: ANION GAP 10 (8-16); CO2 29 mmol/L (21-32); CREATININE 0.8 mg/dL (0.7-1.3); GLUCOSE,RANDOM 102 mg/dL (74-106); MAGNESIUM 1.9 mg/dL (1.8-2.4)
[2017-02-17 06:46] LABS: ALK PHOS 47 U/L (45-117); BILIRUBIN,TOTAL 0.4 mg/dL (0.2-1.0); PHOSPHOROUS 3.6 mg/dL (2.5-4.9); SGOT/AST 39 U/L (15-37); SGPT/ALT 36 U/L (12-78); TOT PROT 6.4 g/dl (6.4-8.2)
--- NOTE | 2017-02-17 09:23 | OP ---
DATE OF OPERATION: 02/16/2017 PREOPERATIVE DIAGNOSIS: Lung metastases. POSTOPERATIVE DIAGNOSIS: Lung metastases. PROCEDURE: Bronchoscopy, pneumolysis, right upper lobe wedge resection, and mediastinal lymph node dissection. INDICATION: Lung metastases. SURGEON: Jose Gilmore MD CO-SURGEON: Laura Paula MD ANESTHESIA: General endotracheal. FINDING: Right upper lobe nodule with invasion of visceral pleura. No enlarged lymph node at the level IV R. SPECIMEN SENT: 1. Right upper lobe wedge for frozen section which showed resection margin of 2 cm and free resection margin. 2. Level IV R for permanent. COMPLICATIONS: None. DRAINS/TUBES/CATHETERS: A 20-Stateless chest tube. HARDWARE/IMPLANTS: Not applicable. BLOOD/FLUID LOSS: 75 mL POSTOPERATIVE CONDITION: Hemodynamically stable, transferred to PACU. INDICATION: A 56-year-old male with laryngeal/pharyngeal cancer, was found to have a right upper lobe nodule. The patient was seen by Dr. Gilmore, scheduled for resection. Risks, benefits, and alternative treatments were presented to the patient. The patient consented for surgery. PROCEDURE IN DETAIL: The patient was taken to the operating room, was placed in a supine position. Intra-arterial and intravenous access was done by anesthesiologist. The patient was anesthetized with intravenous sedation. Double-lumen tube was inserted. Single-lung ventilation was obtained. Hereafter, bronchoscopy was performed. No intrabronchial lesion. Position of the double-lumen was confirmed in a good position. After the patient was placed in flexed left lateral decubitus position, right side up, prepped and draped in sterile fashion, at the level of IC7 anterior access line, incision was made. IC6 angular line and IC4 anterior access port was made. Camera was inserted into the pleural cavity. The nodule was identified and resected using endostapler. Hereafter, level IV R lymph node was sampled for staging. Frozen section showed margin free of tumor. Hemostasis was secured. A 28-Stateless chest tube was placed. Lung inflated. Incision was closed using 0 Vicryl at the level of fascia and subcutaneous tissue and demond at the skin level. Dr. Gilmore and Mell performed the procedure as dictated above. We were in the OR during the whole procedure remained available thereafter. LAURA PAULA M.D. [id number] MTDD
[2017-02-17] MEDS ORDERED: HYDROmorphone HCL CARPU-JECT 1 MG/1 ML DISP.SYRIN IVPUSH PRN (09:54)
[2017-02-17] MEDS ORDERED: MULTIVITAMINS (DAILY MVI) TABLET (FP) PO SCH (10:00)
[2017-02-17] MEDS ORDERED: amLODIPine BESYLATE 10 MG TABLET (FP) PO SCH (10:00)
[2017-02-17] MEDS ORDERED: THIAMINE HCL 100 MG TABLET (FP) PO SCH (10:00)
[2017-02-17] MEDS ORDERED: FOLIC ACID 1 MG TABLET (FP) PO SCH (10:00)
[2017-02-17] MEDS: MUPIROCIN 2% TOPICAL OINTMENT FOR DECOLONIZATION NS SCH ×2 (10:00→22:35)
[2017-02-17] MEDS ORDERED: CHOLECALCIFEROL (VITAMIN D3) 1,000 UNIT TABLET (FP) PO SCH (10:00)
[2017-02-17] MEDS ORDERED: ALLOPURINOL 100 MG TABLET (FP) PO SCH (10:00)
[2017-02-17] MEDS ORDERED: PT OWN MED DRAWER 7, Y5N ONE (10:01)
[2017-02-17] MEDS: GABAPENTIN 400 MG CAPSULE (FP) PO SCH ×2 (10:03→23:42)
[2017-02-17] MEDS: HEPARIN NA (PORCINE) 5,000 UNITS/ML 1ML VIAL SQ SCH ×2 (10:04→23:42)
[2017-02-17] MEDS: busPIRone HCL 10 MG TABLET (FP) PO SCH ×2 (10:06→23:54)
--- NOTE | 2017-02-17 10:09 | PN ---
Progress Note (short form) - Note Progress Note: Anesthesia post op note. POD#1 s/P Bronchoscopy , right VATS with wedge resection. Patient seen and examined,VSS. C/o pain, on po meds, with no sufficient effect. Informed primary team to address his pain. No apparent post anesthesia complications. Signed off.
--- NOTE | 2017-02-17 10:42 | PN ---
Physical Exam: SUBJECTIVE: Patient seen and examined. Pt feeling sore/pain s/p VATS lung resection. No events overnight. OBJECTIVE: Vital Signs Period Temp Pulse Resp BP Sys/Clay Pulse Ox Last 24 Hr 97.2 F-98.4 F 68-102 10-46 103-164/62-91 94-99 GENERAL: The patient is awake, alert, and fully oriented, in no acute distress. HEAD: Normal with no signs of trauma. EYES: Extraocular movements intact, sclera anicteric, conjunctiva clear. No ptosis. ENT: Poor dentition stable. Moist mucous membranes. NECK: Trachea midline, supple. LUNGS: Breath sounds equal, clear to auscultation bilaterally, no wheezes, no crackles, no accessory muscle use. HEART: Regular rate and rhythm, S1, S2 without murmur, rub or gallop. EXTREMITIES: Warm, well-perfused, no edema. PSYCH: Normal mood, normal affect. SKIN: Warm, dry, normal turgor, no rashes or lesions noted Laboratory Results - last 24 hr 02/17/17 02/17/17 05:00 05:00 WBC 8.5 D RBC 3.77 L Hgb 12.4 Hct 35.7 MCV 94.6 MCH 32.9 MCHC 34.8 RDW 13.1 Plt Count 170 MPV 9.3 Neutrophils % 68.8 D Lymphocytes % 21.3 D Monocytes % 8.8 Eosinophils % 0.7 D Basophils % 0.4 Sodium 145 Potassium 3.7 Chloride 106 Carbon Dioxide 29 Anion Gap 10 BUN 10 Creatinine 0.8 Creat Clearance w eGFR > 60 Random Glucose 102 Calcium 8.0 L Phosphorus 3.6 Magnesium 1.9 Total Bilirubin 0.4 AST 39 H ALT 36 Alkaline Phosphatase 47 Total Protein 6.4 Albumin 3.0 L Active Medications Generic Name Dose Route Start Last Admin Trade Name Freq PRN Reason Stop Dose Admin Acetaminophen 650 mg 02/16/17 11:53 02/17/17 06:01 Tylenol - PO 02/20/17 11:52 650 mg Q4H PRN Administration SEVERE PAIN 6-10 Acetaminophen 325 mg 02/16/17 12:04 Tylenol - PO 02/20/17 12:03 Q4H PRN MILD PAIN 1-5 Albuterol/Ipratropium 1 amp 02/16/17 18:00 02/17/17 06:27 Duoneb - NEB 1 amp QIDR [facility] Administration Allopurinol 100 mg 02/17/17 10:00 02/17/17 10:04 Zyloprim - PO 100 mg DAILY [facility] Administration Amlodipine Besylate 10 mg 02/17/17 10:00 02/17/17 10:04 Norvasc - PO 10 mg DAILY [facility] Administration Atorvastatin Calcium 10 mg 02/16/17 22:00 02/16/17 23:38 Lipitor - PO 10 mg HS [facility] Administration Buspirone HCl 30 mg 02/16/17 22:00 02/17/17 10:06 Buspar - PO 30 mg BID [facility] Administration Chlordiazepoxide HCl 15 mg 02/16/17 11:00 Librium - PO 02/17/17 00:01 Q6HPO PRN WITHDRAWAL(CONT SUBST) Chlorhexidine Gluconate 1 applic 02/16/17 22:00 02/16/17 22:00 Hibiclens For Decolonization - TP 1 applic HS [facility] Administration Cholecalciferol 2,000 unit 02/17/17 10:00 02/17/17 10:04 Vitamin D3 - PO 2,000 unit DAILY [facility] Administration Folic Acid 1 mg 02/17/17 10:00 02/17/17 10:03 Folic Acid - PO 1 mg DAILY [facility] Administration Gabapentin 800 mg 02/16/17 22:00 02/17/17 10:03 Neurontin - PO 800 mg BID [facility] Administration Heparin Sodium (Porcine) 5,000 unit 02/16/17 22:00 02/17/17 10:04 Heparin - SQ 5,000 unit BID [facility] Administration Hydromorphone HCl 0.5 mg 02/16/17 11:00 Dilaudid Injection - IVPUSH 02/19/17 11:01 [id number] PRN PAIN Hydromorphone HCl 1 mg 02/17/17 09:54 Dilaudid Injection - IVPUSH Q4H PRN PAIN Lactated Ringer's 1,000 mls @ 75 mls/hr 02/16/17 11:00 02/16/17 12:30 Lactated Ringers Solution IV 0 mls ASDIR [facility] Administration Multivitamins/Minerals/Vitamin C 1 tab 02/17/17 10:00 02/17/17 10:04 Tab-A-Vit - PO 1 tab DAILY [facility] Administration Mupirocin 1 applic 02/16/17 22:00 02/16/17 23:40 Bactroban Ointment (For Decolonization) - NS 02/21/17 21:59 1 applic BID [facility] Administration Oxycodone HCl 10 mg 02/16/17 11:53 02/17/17 05:59 Roxicodone - PO 02/20/17 11:52 10 mg Q4H PRN Administration SEVERE PAIN 6-10 Oxycodone HCl 5 mg 02/16/17 12:04 Roxicodone - PO 02/20/17 12:03 Q4H PRN MILD PAIN 1-5 Quetiapine Fumarate 300 mg 02/16/17 16:30 02/16/17 17:00 Seroquel Xr - PO 300 mg ACDIN [facility] Administration Sertraline HCl 200 mg 02/16/17 16:30 02/16/17 18:11 Zoloft - PO 200 mg ACDIN [facility] Administration Thiamine HCl 100 mg 02/17/17 10:00 02/17/17 10:04 Vitamin B1 - PO 100 mg DAILY [facility] Administration ASSESSMENT/PLAN: 56yo M with PMH of current smoker (6 cigarettes/day), Right lung CA, CAD with 2 stents, htn, hld, gout, presented with worsening cough and sputum production and admitted to med-surg in preparation for lung biopsy and possible lung surgery. 1) newly diagnosed RUL adenocarcinoma - s/p Right VATS wedge resection 02/16/17 - Dilaudid 0.5mg IVpush q4hr prn and Oxycodone 5mg (for pain 1-5/10) or 10mg (for pain 6-10/10) q4hr prn - incentive spirometry - monitor chest tube output - no air leak on pleura vac - O2 prn 2) Supraglottic lesion - s/p laryngoscopy biopsy revealing squamous cell Ca - planned for subtotal pharyngectomy on Thursday per Dr. Olivares 3) ETOH abuse - no signs of withdrawal - continue thiamine, folic acid, and MVI - Librium protocol prn 4) CAD s/p 2 stents - hold ASA - continue Lipitor 5) htn - continue Norvasc 6) hld - continue Lipitor 7) gout - continue Allopurinol 8) poor dentition - f/u as outpatient 10) FEN - Fluids: LR @ 75ml/hr - Electolytes: hypomagnesemia from yesterday, resolved/repleted. Continue to monitor. - Nutrition: low sodium diet 11) DVT Prophylaxis - Heparin 5,000U SQ BID - sheree SCDs Visit type - Emergency Visit Emergency Visit: Yes ED Registration Date: 02/11/17 Care time: The patient presented to the Emergency Department on the above date and was hospitalized for further evaluation of their emergent condition. - New Patient This patient is new to me today: No - Critical Care Critical Care patient: No
--- NOTE | 2017-02-17 12:26 | PN ---
Teaching Attending Note Name of Resident: Hugo Weinstein ATTENDING PHYSICIAN STATEMENT I saw and evaluated the patient. I reviewed the resident's note and discussed the case with the resident. I agree with the resident's findings and plan as documented. SUBJECTIVE: Patient seen and examined in the ICU. POD #1 S/P bronchoscopy, Right VATS, pneumolysis, RUL wedge resection, LN sampling, & Intercostal nerve block Awake and alert. (+) pain at the CT site CT: No air leak, minimal output. CXR: No PTX / CT in good position Intake & Output 02/14/17 02/15/17 02/16/17 02/17/17 23:59 23:59 23:59 23:59 Intake Total 1240 1140 1300 782.7 Output Total 5506 795 3896 1500 Balance 240 740 -5 -717.3 Last Vital Signs Temp Pulse Resp BP Pulse Ox 97.5 F L 91 H 19 115/76 95 02/17/17 10:00 02/17/17 12:00 02/17/17 12:00 02/17/17 12:00 02/16/17 20:56 Active Medications Acetaminophen (Tylenol -) 650 mg PO Q4H PRN PRN Reason: SEVERE PAIN 6-10 Stop: 02/20/17 11:52 Last Admin: 02/17/17 06:01 Dose: 650 mg Acetaminophen (Tylenol -) 325 mg PO Q4H PRN PRN Reason: MILD PAIN 1-5 Stop: 02/20/17 12:03 Albuterol/Ipratropium (Duoneb -) 1 amp NEB [facility]IDR [facility] Last Admin: 02/17/17 06:27 Dose: 1 amp Allopurinol (Zyloprim -) 100 mg PO DAILY [facility] Last Admin: 02/17/17 10:04 Dose: 100 mg Amlodipine Besylate (Norvasc -) 10 mg PO DAILY [facility] Last Admin: 02/17/17 10:04 Dose: 10 mg Atorvastatin Calcium (Lipitor -) 10 mg PO HS [facility] Last Admin: 02/16/17 23:38 Dose: 10 mg Buspirone HCl (Buspar -) 30 mg PO BID [facility] Last Admin: 02/17/17 10:06 Dose: 30 mg Chlordiazepoxide HCl (Librium -) 15 mg PO Q6HPO PRN PRN Reason: WITHDRAWAL(CONT SUBST) Stop: 02/17/17 00:01 Chlorhexidine Gluconate (Hibiclens For Decolonization -) 1 applic TP HS [facility] Last Admin: 02/16/17 22:00 Dose: 1 applic Cholecalciferol (Vitamin D3 -) 2,000 unit PO DAILY [facility] Last Admin: 02/17/17 10:04 Dose: 2,000 unit Folic Acid (Folic Acid -) 1 mg PO DAILY [facility] Last Admin: 02/17/17 10:03 Dose: 1 mg Gabapentin (Neurontin -) 800 mg PO BID [facility] Last Admin: 02/17/17 10:03 Dose: 800 mg Heparin Sodium (Porcine) (Heparin -) 5,000 unit SQ BID [facility] Last Admin: 02/17/17 10:04 Dose: 5,000 unit Hydromorphone HCl (Dilaudid Injection -) 0.5 mg IVPUSH [id number] PRN PRN Reason: PAIN Stop: 02/19/17 11:01 Hydromorphone HCl (Dilaudid Injection -) 1 mg IVPUSH Q4H PRN PRN Reason: PAIN Lactated Ringer's (Lactated Ringers Solution) 1,000 mls @ 75 mls/hr IV ASDIR [facility] Last Admin: 02/16/17 12:30 Dose: 0 mls Multivitamins/Minerals/Vitamin C (Tab-A-Vit -) 1 tab PO DAILY [facility] Last Admin: 02/17/17 10:04 Dose: 1 tab Mupirocin (Bactroban Ointment (For Decolonization) -) 1 applic NS BID [facility] Stop: 02/21/17 21:59 Last Admin: 02/16/17 23:40 Dose: 1 applic Oxycodone HCl (Roxicodone -) 10 mg PO Q4H PRN PRN Reason: SEVERE PAIN 6-10 Stop: 02/20/17 11:52 Last Admin: 02/17/17 05:59 Dose: 10 mg Oxycodone HCl (Roxicodone -) 5 mg PO Q4H PRN PRN Reason: MILD PAIN 1-5 Stop: 02/20/17 12:03 Quetiapine Fumarate (Seroquel Xr -) 300 mg PO ACDIN [facility] Last Admin: 02/16/17 17:00 Dose: 300 mg Sertraline HCl (Zoloft -) 200 mg PO ACDIN [facility] Last Admin: 02/16/17 18:11 Dose: 200 mg Thiamine HCl (Vitamin B1 -) 100 mg PO DAILY [facility] Last Admin: 02/17/17 10:04 Dose: 100 mg Constitutional: Yes: Awake and alert, uncomfortable due to pain Eyes: Yes: WNL, Conjunctiva Clear, EOM Intact HENT: Yes: Atraumatic, Normocephalic Neck: Yes: Supple, Trachea Midline Cardiovascular: Yes: Regular Rate and Rhythm Respiratory: Yes: Right CT, no air leak, scattered rhonchi ...Inspection: Yes: WNL ...Clubbing: No Gastrointestinal: Yes: Normal Bowel Sounds, Soft, Abdomen, Obese Renal/: Yes: WNL Musculoskeletal: Yes: WNL Extremities: Yes: WNL Edema: No Peripheral Pulses WNL: Yes Integumentary: Yes: WNL Neurological: Yes: WNL, Alert, Oriented ...Motor Strength: WNL Psychiatric: Yes: WNL, Alert, Oriented Labs: Laboratory Results - last 24 hr 02/17/17 02/17/17 05:00 05:00 WBC 8.5 D RBC 3.77 L Hgb 12.4 Hct 35.7 MCV 94.6 MCH 32.9 MCHC 34.8 RDW 13.1 Plt Count 170 MPV 9.3 Neutrophils % 68.8 D Lymphocytes % 21.3 D Monocytes % 8.8 Eosinophils % 0.7 D Basophils % 0.4 Sodium 145 Potassium 3.7 Chloride 106 Carbon Dioxide 29 Anion Gap 10 BUN 10 Creatinine 0.8 Creat Clearance w eGFR > 60 Random Glucose 102 Calcium 8.0 L Phosphorus 3.6 Magnesium 1.9 Total Bilirubin 0.4 AST 39 H ALT 36 Alkaline Phosphatase 47 Total Protein 6.4 Albumin 3.0 L Problem List - Problems (1) Alcohol dependence Code(s): F10.20 - ALCOHOL DEPENDENCE, UNCOMPLICATED Qualifiers: Substance use status: with intoxication Complication of substance- induced condition: with unspecified complication Qualified Code(s): F10.229 - Alcohol dependence with intoxication, unspecified; F10.229 - Alcohol dependence with intoxication, unspecified; F10.229 - Alcohol dependence with intoxication, unspecified (2) COPD (chronic obstructive pulmonary disease) Code(s): J44.9 - CHRONIC OBSTRUCTIVE PULMONARY DISEASE, UNSPECIFIED Qualifiers : COPD type: unspecified COPD Qualified Code(s): J44.9 - Chronic obstructive pulmonary disease, unspecified; J44.9 - Chronic obstructive pulmonary disease, unspecified; J44.9 - Chronic obstructive pulmonary disease, unspecified; J44.9 - Chronic obstructive pulmonary disease, unspecified (3) Cough Code(s): R05 - COUGH (4) Lung cancer Code(s): C34.90 - MALIGNANT NEOPLASM OF UNSP PART OF UNSP BRONCHUS OR LUNG Qualifiers: Laterality: unspecified laterality Lung location: overlapping sites Qualified Code(s): C34.80 - Malignant neoplasm of overlapping sites of unspecified bronchus and lung; C34.80 - Malignant neoplasm of overlapping sites of unspecified bronchus and lung; C34.80 - Malignant neoplasm of overlapping sites of unspecified bronchus and lung; C34.80 - Malignant neoplasm of overlapping sites of unspecified bronchus and lung (5) Nicotine dependence Code(s): F17.200 - NICOTINE DEPENDENCE, UNSPECIFIED, UNCOMPLICATED (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 Problem List - Problems (1) Alcohol dependence Code(s): F10.20 - ALCOHOL DEPENDENCE, UNCOMPLICATED Qualifiers: Substance use status: with intoxication Complication of substance- induced condition: with unspecified complication Qualified Code(s): F10.229 - Alcohol dependence with intoxication, unspecified; F10.229 - Alcohol dependence with intoxication, unspecified; F10.229 - Alcohol dependence with intoxication, unspecified (2) COPD (chronic obstructive pulmonary disease) Code(s): J44.9 - CHRONIC OBSTRUCTIVE PULMONARY DISEASE, UNSPECIFIED Qualifiers : COPD type: unspecified COPD Qualified Code(s): J44.9 - Chronic obstructive pulmonary disease, unspecified; J44.9 - Chronic obstructive pulmonary disease, unspecified; J44.9 - Chronic obstructive pulmonary disease, unspecified; J44.9 - Chronic obstructive pulmonary disease, unspecified (3) Cough Code(s): R05 - COUGH (4) Lung cancer Code(s): C34.90 - MALIGNANT NEOPLASM OF UNSP PART OF UNSP BRONCHUS OR LUNG Qualifiers: Laterality: unspecified laterality Lung location: overlapping sites Qualified Code(s): C34.80 - Malignant neoplasm of overlapping sites of unspecified bronchus and lung; C34.80 - Malignant neoplasm of overlapping sites of unspecified bronchus and lung; C34.80 - Malignant neoplasm of overlapping sites of unspecified bronchus and lung; C34.80 - Malignant neoplasm of overlapping sites of unspecified bronchus and lung (5) Nicotine dependence Code(s): F17.200 - NICOTINE DEPENDENCE, UNSPECIFIED, UNCOMPLICATED
--- NOTE | 2017-02-17 15:45 | PN ---
Progress Note (short form) - Note Progress Note: POD#1 Pt without complaints of CP/SOB he does drop his saturation to high 80's without supplemental oxygen. Vital Signs Period Temp Pulse Resp BP Sys/Clay Pulse Ox Last 24 Hr 97.2 F-98.2 F 76-94 11-22 115-164/62-91 95-97 Ct-150ml serous fluid since this am, 350 ml over since the surgery, no air leak UOP-1400ml since 7 am, clear yellow GEN: A&0x3, somewhat forgetful CV:RRR Lungs: Cta b/l anteriorly, mild SQ emphysema, incision c/d/i LE: no calf tenderness or swelling noted b/l CBC, BMP 02/17/17 05:00 02/17/17 05:00 CXR: no pneumothorax, CT in good position A/p: 56 yo male s/p bronchoscopy with R VATS/pmeulolysis, Right lung wedge resection D/w Dr. Gilmore plan for CT to water seal CXR in the am Continue supplemental oxygen oob to chair discontinue IV fluids/rader oral pain medications
[2017-02-17] MEDS: SERTRALINE HCL 50 MG TABLET (FP) PO SCH (18:12)
--- NOTE | 2017-02-17 18:19 | PN ---
Teaching Attending Note Name of Resident: Gloria Zaldivar ATTENDING PHYSICIAN STATEMENT I saw and evaluated the patient. I reviewed the resident's note and discussed the case with the resident. I agree with the resident's findings and plan as documented. SUBJECTIVE: Patient ids comfortable with no acute distress going for VATS procedure. OBJECTIVE: Period Temp Pulse Resp BP Sys/Clay Pulse Ox Last 24 Hr 97.4 F-98.4 F 67-82 18-20 123-145/75-89 97-97 02/16/17 02/16/17 02/16/17 05:35 05:35 05:35 WBC 6.3 RBC 3.93 L Hgb 13.0 Hct 37.8 MCV 96.3 H MCH 33.0 MCHC 34.3 RDW 13.4 Plt Count 183 MPV 8.9 Neutrophils % 51.3 Lymphocytes % 30.7 Monocytes % 9.5 Eosinophils % 7.1 H Basophils % 1.4 PT with INR 11.10 INR 0.98 Sodium 143 Potassium 3.9 Chloride 107 Carbon Dioxide 26 Anion Gap 10 BUN 9 D Creatinine 0.8 Random Glucose 105 Calcium 8.6 Phosphorus 4.4 D Magnesium 1.6 L Active Medications Generic Name Dose Route Start Last Admin Trade Name Freq PRN Reason Stop Dose Admin Acetaminophen 650 mg 02/16/17 11:53 Tylenol - PO 02/20/17 11:52 Q4H PRN SEVERE PAIN 6-10 Acetaminophen 325 mg 02/16/17 12:04 Tylenol - PO 02/20/17 12:03 Q4H PRN MILD PAIN 1-5 Albuterol/Ipratropium 1 amp 02/16/17 18:00 Duoneb - NEB QIDR [facility] Allopurinol 100 mg 02/17/17 10:00 Zyloprim - PO DAILY [facility] Amlodipine Besylate 10 mg 02/17/17 10:00 Norvasc - PO DAILY [facility] Atorvastatin Calcium 10 mg 02/16/17 22:00 Lipitor - PO HS [facility] Buspirone HCl 30 mg 02/16/17 22:00 Buspar - PO BID [facility] Chlordiazepoxide HCl 15 mg 02/16/17 11:00 Librium - PO 02/17/17 00:01 Q6HPO PRN WITHDRAWAL(CONT SUBST) Cholecalciferol 2,000 unit 02/17/17 10:00 Vitamin D3 - PO DAILY [facility] Folic Acid 1 mg 02/17/17 10:00 Folic Acid - PO DAILY [facility] Gabapentin 800 mg 02/16/17 22:00 Neurontin - PO BID [facility] Heparin Sodium (Porcine) 5,000 unit 02/16/17 22:00 Heparin - SQ BID [facility] Hydromorphone HCl 0.5 mg 02/16/17 11:00 Dilaudid Injection - IVPUSH 02/19/17 11:01 [id number] PRN PAIN Lactated Ringer's 1,000 mls @ 75 mls/hr 02/16/17 11:00 02/16/17 12:30 Lactated Ringers Solution IV 0 mls ASDIR [facility] Administration Multivitamins/Minerals/Vitamin C 1 tab 02/17/17 10:00 Tab-A-Vit - PO DAILY [facility] Oxycodone HCl 10 mg 02/16/17 11:53 Roxicodone - PO 02/20/17 11:52 Q4H PRN SEVERE PAIN 6-10 Oxycodone HCl 5 mg 02/16/17 12:04 Roxicodone - PO 02/20/17 12:03 Q4H PRN MILD PAIN 1-5 Quetiapine Fumarate 300 mg 02/16/17 16:30 Seroquel Xr - PO ACDIN [facility] Sertraline HCl 200 mg 02/16/17 16:30 Zoloft - PO ACDIN [facility] Thiamine HCl 100 mg 02/17/17 10:00 Vitamin B1 - PO DAILY [facility] PE:per resident's note ASSESSMENT AND PLAN: 56 M w/ CAD s/p 2 stents, gout, HTN, and dyslipidemia recently diagnosed Adenocarcinoma of the RUL. Diagnosis obtained by CT guided biopsy on 2016. 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 Planned for right lung VATS on thursday. #Right lung adenocarcinoma - Going for Right VAT procedure today by Dr. Michael , pulmonary on the case. #Laryngeal SCC as per laryngoscopy findings. official pathology report is pending. f/u with ENT and oncology for further management # Hx of CAD s/p 2 stents - hold ASA , continue statin #ETOH abuse- etoh level > 200 on admission, currently no signs of withdrawal, continue librium protocol, continue thiamine, folate , multivitamin #poor dentition- advised dental evaluation as an outpatient #S/p fall without any LOC, or trauma. head ct was done ; report no head bleed. -#DVT ppx :lovenox hold today's dose.
--- NOTE | 2017-02-17 18:20 | PN ---
Teaching Attending Note Name of Resident: Gloria Zaldivar ATTENDING PHYSICIAN STATEMENT I saw and evaluated the patient. I reviewed the resident's note and discussed the case with the resident. I agree with the resident's findings and plan as documented. SUBJECTIVE: Patient is comfortable with trisha cute distress, no shortness of breath. OBJECTIVE: Vital Signs Temperature 97.5 F L 02/17/17 10:00 Pulse Rate 91 H 02/17/17 12:00 Respiratory Rate 19 02/17/17 12:00 Blood Pressure 115/76 02/17/17 12:00 O2 Sat by Pulse Oximetry (%) 95 02/16/17 20:56 CBCD WBC 8.5 K/mm3 (4.0-10.0) D 02/17/17 05:00 RBC 3.77 M/mm3 (4.00-5.60) L 02/17/17 05:00 Hgb 12.4 GM/dL (11.7-16.9) 02/17/17 05:00 Hct 35.7 % (35.4-49) 02/17/17 05:00 MCV 94.6 fl (80-96) 02/17/17 05:00 MCHC 34.8 g/dl (32.0-35.9) 02/17/17 05:00 RDW 13.1 % (11.9-15.9) 02/17/17 05:00 Plt Count 170 K/MM3 (134-434) 02/17/17 05:00 MPV 9.3 fl (7.5-11.1) 02/17/17 05:00 CMP Sodium 145 mmol/L (136-145) 02/17/17 05:00 Potassium 3.7 mmol/L (3.5-5.1) 02/17/17 05:00 Chloride 106 mmol/L (98-107) 02/17/17 05:00 Carbon Dioxide 29 mmol/L (21-32) 02/17/17 05:00 Anion Gap 10 (8-16) 02/17/17 05:00 BUN 10 mg/dL (7-18) 02/17/17 05:00 Creatinine 0.8 mg/dL (0.7-1.3) 02/17/17 05:00 Creat Clearance w eGFR > 60 (>60) 02/17/17 05:00 Random Glucose 102 mg/dL (74-106) 02/17/17 05:00 Calcium 8.0 mg/dL (8.5-10.1) L 02/17/17 05:00 Total Bilirubin 0.4 mg/dL (0.2-1.0) 02/17/17 05:00 AST 39 U/L (15-37) H 02/17/17 05:00 ALT 36 U/L (12-78) 02/17/17 05:00 Alkaline Phosphatase 47 U/L (45-117) 02/17/17 05:00 Total Protein 6.4 g/dl (6.4-8.2) 02/17/17 05:00 Albumin 3.0 g/dl (3.4-5.0) L 02/17/17 05:00 CARDIAC ENZYMES Creatine Kinase 71 IU/L (39-308) 02/11/17 10:24 Troponin I < 0.02 ng/ml (0.00-0.05) 02/11/17 10:24 Current Medications Generic Name Dose Route Start Last Admin Trade Name Freq PRN Reason Stop Dose Admin Acetaminophen 650 mg 02/16/17 11:53 02/17/17 06:01 Tylenol - PO 02/20/17 11:52 650 mg Q4H PRN Administration SEVERE PAIN 6-10 Acetaminophen 325 mg 02/16/17 12:04 Tylenol - PO 02/20/17 12:03 Q4H PRN MILD PAIN 1-5 Albuterol/Ipratropium 1 amp 02/16/17 18:00 02/17/17 12:27 Duoneb - NEB 1 amp QIDR [facility] Administration Allopurinol 100 mg 02/17/17 10:00 02/17/17 10:04 Zyloprim - PO 100 mg DAILY [facility] Administration Amlodipine Besylate 10 mg 02/17/17 10:00 02/17/17 10:04 Norvasc - PO 10 mg DAILY [facility] Administration Atorvastatin Calcium 10 mg 02/16/17 22:00 02/16/17 23:38 Lipitor - PO 10 mg HS [facility] Administration Buspirone HCl 30 mg 02/16/17 22:00 02/17/17 10:06 Buspar - PO 30 mg BID [facility] Administration Chlordiazepoxide HCl 15 mg 02/16/17 11:00 Librium - PO 02/17/17 00:01 Q6HPO PRN WITHDRAWAL(CONT SUBST) Chlorhexidine Gluconate 1 applic 02/16/17 22:00 02/16/17 22:00 Hibiclens For Decolonization - TP 1 applic HS [facility] Administration Cholecalciferol 2,000 unit 02/17/17 10:00 02/17/17 10:04 Vitamin D3 - PO 2,000 unit DAILY [facility] Administration Folic Acid 1 mg 02/17/17 10:00 02/17/17 10:03 Folic Acid - PO 1 mg DAILY [facility] Administration Gabapentin 800 mg 02/16/17 22:00 02/17/17 10:03 Neurontin - PO 800 mg BID [facility] Administration Heparin Sodium (Porcine) 5,000 unit 02/16/17 22:00 02/17/17 10:04 Heparin - SQ 5,000 unit BID [facility] Administration Hydromorphone HCl 1 mg 02/17/17 09:54 Dilaudid Injection - IVPUSH Q4H PRN PAIN Multivitamins/Minerals/Vitamin C 1 tab 02/17/17 10:00 02/17/17 10:04 Tab-A-Vit - PO 1 tab DAILY [facility] Administration Mupirocin 1 applic 02/16/17 22:00 02/16/17 23:40 Bactroban Ointment (For Decolonization) - NS 02/21/17 21:59 1 applic BID [facility] Administration Oxycodone HCl 10 mg 02/16/17 11:53 02/17/17 05:59 Roxicodone - PO 02/20/17 11:52 10 mg Q4H PRN Administration SEVERE PAIN 6-10 Oxycodone HCl 5 mg 02/16/17 12:04 Roxicodone - PO 02/20/17 12:03 Q4H PRN MILD PAIN 1-5 Quetiapine Fumarate 300 mg 02/16/17 16:30 02/17/17 18:13 Seroquel Xr - PO 300 mg ACDIN [facility] Administration Sertraline HCl 200 mg 02/16/17 16:30 02/17/17 18:12 Zoloft - PO 200 mg ACDIN [facility] Administration Thiamine HCl 100 mg 02/17/17 10:00 02/17/17 10:04 Vitamin B1 - PO 100 mg DAILY [facility] Administration Home Medications Medication Instructions Recorded Amlodipine Besylate 10 mg PO DAILY 12/23/16 Atorvastatin Ca [Lipitor] 10 mg PO HS 12/23/16 Gabapentin 800 mg PO TID 12/23/16 Quetiapine Fumarate "Xr" [Seroquel 300 mg PO ACDIN 12/23/16 Xr -] Sertraline HCl [Zoloft] 100 mg PO BID 12/23/16 Folic Acid 1 mg PO DAILY 01/02/17 Allopurinol [Zyloprim -] 100 mg PO DAILY 02/12/17 Aspirin [ASA -] 81 mg PO DAILY 02/12/17 PE:per resident's note ASSESSMENT AND PLAN: 56 M w/ CAD s/p 2 stents, gout, HTN, and dyslipidemia recently diagnosed Adenocarcinoma of the RUL. Diagnosis obtained by CT guided biopsy on 2016. 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 Planned for right lung VATS on thursday. #POD #1 s/p VAT procedure for Right lung adenocarcinoma - by Dr. Michael , pulmonary on the case. #Laryngeal SCC as per laryngoscopy findings. official pathology report is pending. please follow the report .f/u with ENT and oncology for further management. # Hx of CAD s/p 2 stents - hold ASA , continue statin #ETOH abuse- etoh level > 200 on admission, currently no signs of withdrawal, continue librium protocol, continue thiamine, folate , multivitamin #poor dentition- advised dental evaluation as an outpatient #S/p fall without any LOC, or trauma. head ct was done ; report no head bleed. -#DVT ppx :lovenox
[2017-02-17] MEDS: ATORVASTATIN CA 10 MG TABLET (FP) PO SCH (23:42)
[2017-02-17] MEDS: CHLORHEXIDINE GLUCONATE 4% CLEANSER FOR DECOLONIZATION TP SCH (23:55)
[2017-02-18] MEDS: ALBUTEROL SO4 2.5/IPRATROPIUM 0.5 INH SOL 3 ML VIAL.NEB. NEB SCH ×4 (00:30→19:09)
[2017-02-18] MEDS ORDERED: oxyCODONE HCL 5 MG TABLET PO PRN ×2 (07:47)
[2017-02-18] MEDS ORDERED: chlordiazePOXIDE 5 MG CAPSULE PO PRN (07:47)
[2017-02-18] MEDS ORDERED: ACETAMINOPHEN 325 MG TABLET (FP) PO PRN ×2 (07:47)
[2017-02-18] MEDS: LACTATED RINGERS SOLUTION 1,000 ML IV SCH (07:50)
--- NOTE | 2017-02-18 08:25 | PN ---
Physical Exam: SUBJECTIVE: Patient seen and examined. Pt feeling sore/tender s/p Right VATS wedge resection 02/16/17. Pt reminded to ask for prn pain medications as needed. Tmax 100.5 overnight, pt monitored and temp went back down. OBJECTIVE: Vital Signs Period Temp Pulse Resp BP Sys/Clay Pulse Ox Last 24 Hr 97.5 F-100.5 F 79-115 18-20 113-136/63-91 95 GENERAL: The patient is awake, alert, and fully oriented, in no acute distress. HEAD: Normal with no signs of trauma. EYES: Extraocular movements intact, sclera anicteric, conjunctiva clear. No ptosis. ENT: Moist mucous membranes. NECK: Trachea midline, supple. LUNGS: Breath sounds equal, clear to auscultation bilaterally, no wheezes, no crackles, no accessory muscle use. HEART: Chest tender to palpation. Right-sided lateral chest tube noted. Regular rate and rhythm, S1, S2 without murmur, rub or gallop. ABDOMEN: Soft, nontender, nondistended. EXTREMITIES: Warm, well-perfused, no edema. PSYCH: Normal mood, normal affect. SKIN: Warm, dry, normal turgor, no rashes or lesions noted Laboratory Results - last 24 hr 02/18/17 02/18/17 07:00 07:00 WBC 7.1 RBC 3.84 L Hgb 12.4 Hct 36.7 MCV 95.5 MCH 32.4 MCHC 33.9 RDW 13.2 Plt Count 162 MPV 9.7 Sodium 139 Potassium 4.3 Chloride 105 Carbon Dioxide 28 Anion Gap 6 L BUN 10 Creatinine 0.9 Random Glucose 106 Calcium 8.4 L Phosphorus 3.5 Magnesium 2.1 Active Medications Generic Name Dose Route Start Last Admin Trade Name Freq PRN Reason Stop Dose Admin Acetaminophen 650 mg 02/18/17 07:47 Tylenol - PO 02/20/17 11:52 Q4H PRN SEVERE PAIN 6-10 Acetaminophen 325 mg 02/18/17 07:47 Tylenol - PO 02/20/17 12:03 Q4H PRN MILD PAIN 1-5 Albuterol/Ipratropium 1 amp 02/18/17 12:00 Duoneb - NEB QIDR [facility] Allopurinol 100 mg 02/18/17 10:00 Zyloprim - PO DAILY [facility] Amlodipine Besylate 10 mg 02/18/17 10:00 Norvasc - PO DAILY [facility] Atorvastatin Calcium 10 mg 02/18/17 22:00 Lipitor - PO HS [facility] Buspirone HCl 30 mg 02/18/17 10:00 Buspar - PO BID [facility] Chlordiazepoxide HCl 15 mg 02/18/17 07:47 Librium - PO 02/19/17 00:01 Q6HPO PRN WITHDRAWAL(CONT SUBST) Chlorhexidine Gluconate 1 applic 02/18/17 22:00 Hibiclens For Decolonization - TP HS [facility] Cholecalciferol 2,000 unit 02/18/17 10:00 Vitamin D3 - PO DAILY [facility] Folic Acid 1 mg 02/18/17 10:00 Folic Acid - PO DAILY [facility] Gabapentin 800 mg 02/18/17 10:00 Neurontin - PO BID [facility] Heparin Sodium (Porcine) 5,000 unit 02/18/17 10:00 Heparin - SQ BID [facility] Hydromorphone HCl 1 mg 02/18/17 07:47 Dilaudid Injection - IVPUSH Q4H PRN PAIN Multivitamins/Minerals/Vitamin C 1 tab 02/18/17 10:00 Tab-A-Vit - PO DAILY [facility] Mupirocin 1 applic 02/18/17 10:00 Bactroban Ointment (For Decolonization) - NS 02/21/17 21:59 BID [facility] Oxycodone HCl 10 mg 02/18/17 07:47 Roxicodone - PO 02/20/17 11:52 Q4H PRN SEVERE PAIN 6-10 Oxycodone HCl 5 mg 02/18/17 07:47 Roxicodone - PO 02/20/17 12:03 Q4H PRN MILD PAIN 1-5 Quetiapine Fumarate 300 mg 02/18/17 16:30 Seroquel Xr - PO ACDIN [facility] Sertraline HCl 200 mg 02/18/17 16:30 Zoloft - PO ACDIN [facility] Thiamine HCl 100 mg 02/18/17 10:00 Vitamin B1 - PO DAILY [facility] IMAGIN02/17/17 CXR -> no pneumothorax, chest tube in good position 02/18/17 CXR -> chest tube in good position, no obvious pneumothorax ASSESSMENT/PLAN: 56yo M with PMH of current smoker (6 cigarettes/day), Right lung CA, CAD with 2 stents, htn, hld, gout, presented with worsening cough and sputum production and admitted to med-surg in preparation for lung biopsy and possible lung surgery. 1) newly diagnosed RUL adenocarcinoma - s/p Right VATS wedge resection 02/16/17 - Dilaudid 0.5mg IVpush q4hr prn and Percocet q4hr prn. Pt reminded to ask for prn medications as needed. - incentive spirometry - pt encouraged to use device - monitor chest tube output - no air leak on pleura vac - O2 prn 2) Supraglottic lesion - s/p laryngoscopy biopsy revealing squamous cell Ca - planned for subtotal pharyngectomy on Thursday per Dr. Olivares 3) ETOH abuse - no signs of withdrawal - continue thiamine, folic acid, and MVI - Librium protocol prn 4) CAD s/p 2 stents - hold ASA - continue Lipitor 5) htn - continue Norvasc 6) hld - continue Lipitor 7) gout - continue Allopurinol 8) poor dentition - f/u as outpatient 10) FEN - Fluids: LR @ 75ml/hr - Electolytes: hypomagnesemia from yesterday, resolved/repleted. Continue to monitor. - Nutrition: low sodium diet 11) DVT Prophylaxis - Heparin 5,000U SQ BID - sheree SCDs Visit type - Emergency Visit Emergency Visit: Yes ED Registration Date: 02/11/17 Care time: The patient presented to the Emergency Department on the above date and was hospitalized for further evaluation of their emergent condition. - New Patient This patient is new to me today: No - Critical Care Critical Care patient: No
[2017-02-18 08:28] LABS: MCH 32.4 pg (25.7-33.7); MCHC 33.9 g/dl (32.0-35.9); MEAN CELL VOLUME 95.5 fl (80-96); MEAN PLT VOLUME 9.7 fl (7.5-11.1); PLATELET COUNT 162 K/MM3 (134-434); RDW 13.2 % (11.9-15.9); WHITE BLOOD COUNT 7.1 K/mm3 (4.0-10.0)
[2017-02-18 08:46] LABS: CALCIUM 8.4 mg/dL (8.5-10.1)
[2017-02-18 08:50] LABS: ANION GAP 6 (8-16); CO2 28 mmol/L (21-32); CREATININE 0.9 mg/dL (0.7-1.3); GLUCOSE,RANDOM 106 mg/dL (74-106); MAGNESIUM 2.1 mg/dL (1.8-2.4); PHOSPHOROUS 3.5 mg/dL (2.5-4.9)
[2017-02-18] MEDS ORDERED: PT OWN MED DRAWER 7, Y5N ONE ×2 (09:15→17:05)
[2017-02-18] MEDS: GABAPENTIN 400 MG CAPSULE (FP) PO SCH ×3 (09:21→22:16)
[2017-02-18] MEDS: THIAMINE HCL 100 MG TABLET (FP) PO SCH ×2 (09:21→11:51)
[2017-02-18] MEDS: CHOLECALCIFEROL (VITAMIN D3) 1,000 UNIT TABLET (FP) PO SCH ×2 (09:22→11:51)
[2017-02-18] MEDS: FOLIC ACID 1 MG TABLET (FP) PO SCH ×2 (09:22→11:50)
[2017-02-18] MEDS: busPIRone HCL 10 MG TABLET (FP) PO SCH ×3 (09:22→22:15)
[2017-02-18] MEDS: amLODIPine BESYLATE 10 MG TABLET (FP) PO SCH ×2 (09:22→11:50)
[2017-02-18] MEDS: MULTIVITAMINS (DAILY MVI) TABLET (FP) PO SCH ×2 (09:22→11:50)
[2017-02-18] MEDS: ALLOPURINOL 100 MG TABLET (FP) PO SCH ×2 (09:22→11:51)
[2017-02-18] MEDS: HEPARIN NA (PORCINE) 5,000 UNITS/ML 1ML VIAL SQ SCH ×2 (09:22→22:14)
[2017-02-18] MEDS: MUPIROCIN 2% TOPICAL OINTMENT FOR DECOLONIZATION NS SCH ×2 (09:23→22:15)
--- NOTE | 2017-02-18 10:54 | PN ---
Progress Note (short form) - Note Progress Note: PULMONARY CASE DISCUSSED WITH DR GUERIN VSS/AFEBRILE ANICTERIC RIGHT CHEST TUBE W SANGUINEOUS DRAINAGE S1S2 BS+ SOFT NO EDEMA LABS/MEDS/NOTES/IMAGES REVIEWED 1) newly diagnosed RUL adenocarcinoma - s/p vats wedge resection/right chest tube w drainage - Dilaudid/Oxycodone for pain - incentive spirometry - O2 prn 2) Supraglottic lesion - s/p laryngoscopy biopsy revealing squamous cell Ca - planned for subtotal pharyngectomy on Thursday 3) ETOH abuse 4) CAD s/p PCI stents 5) DVT Prophylaxis - Heparin 5,000U SQ BID - sheree Anni MARTINEZ MD
--- NOTE | 2017-02-18 15:07 | PN ---
Progress Note (short form) - Note Progress Note: POD #2 s/p VATS wedge: Some pain on cough but doing well otherwise. No air-leak. Well-expanded lung on CXR. Drainage appears minimal. Will leave tube until after laryngectomy, g-tube. All of patient's questions answered.
[2017-02-18] MEDS: SERTRALINE HCL 50 MG TABLET (FP) PO SCH (17:08)
--- NOTE | 2017-02-18 19:12 | PN ---
Teaching Attending Note Name of Resident: Gloria Zaldivar ATTENDING PHYSICIAN STATEMENT I saw and evaluated the patient. I reviewed the resident's note and discussed the case with the resident. I agree with the resident's findings and plan as documented. SUBJECTIVE: no fever or chills, no SOB . has R sided chest pain. OBJECTIVE: NAD Cv : RRR Lungs : decreased breath sounds at R base. no wheezes ABd: soft, NT, ND , NL BS . chest tube seen just below costal margin . serosanguinus drainage in Ext : no edema A/P 56 y/o gentleman with h/o Nicotine dependence, HTn, CAD s/p Stenting , hyperlipidemia and recently diagnosed R lung adenocarcinoma who presented for pulmonary resection. 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 - cont pain control 2- Laryngeal SCC : - sx on Thursday - Pre-Op risk stratification: this is a medium risk procedure. pt himeself has no signs of CHf, ACS, or arrhythmias. He has h/o CAD , but he has no sx now and no exertional CP. He has good funcitonal capacity. He is considered to have intermediate to high clinical risk for this intermediate risk procedure . No further cardiac w/u is indicatied befroe his surgery 3- h/o HTN: cont norvasc 4- CAD : cont to hold asa for surgery 5- h/o Occasional ETOH use: no signs of withdrawal 6- dispo : HLOC
[2017-02-18] MEDS: ATORVASTATIN CA 10 MG TABLET (FP) PO SCH (22:16)
[2017-02-18] MEDS: CHLORHEXIDINE GLUCONATE 4% CLEANSER FOR DECOLONIZATION TP SCH (22:16)
[2017-02-18] MEDS: HYDROmorphone HCL CARPU-JECT 1 MG/1 ML DISP.SYRIN IVPUSH PRN (22:17)
[2017-02-19] MEDS: HYDROmorphone HCL CARPU-JECT 1 MG/1 ML DISP.SYRIN IVPUSH PRN ×2 (06:47→11:29)
[2017-02-19] MEDS: ALBUTEROL SO4 2.5/IPRATROPIUM 0.5 INH SOL 3 ML VIAL.NEB. NEB SCH ×4 (07:00→17:47)
--- NOTE | 2017-02-19 08:55 | PN ---
Physical Exam: SUBJECTIVE: Patient seen and examined. Right sided chest pain on coughing. Pain controlled with prn medication. Pt denies fever, chills, sob. No events overnight. OBJECTIVE: Vital Signs Period Temp Pulse Resp BP Sys/Clay Pulse Ox Last 24 Hr 97.9 F-99.2 F 79-92 18-20 105-133/72-85 96-97 GENERAL: The patient is awake, alert, and fully oriented, in no acute distress. HEAD: Normal with no signs of trauma. LUNGS: Breath sounds equal, clear to auscultation bilaterally, no wheezes, no crackles, no accessory muscle use. HEART: Regular rate and rhythm, +S1/S2. ABDOMEN: Soft, nontender, nondistended, normoactive bowel sounds, no guarding, no rebound. Chest tube to Right lateral chest wall just below costal margin, draining serosanguinous fluid. EXTREMITIES: Warm, well-perfused, no edema. PSYCH: Normal mood, normal affect. SKIN: Warm, dry, normal turgor, no rashes or lesions noted Laboratory Results - last 24 hr 02/18/17 07:00 Sodium 139 Potassium 4.3 Chloride 105 Carbon Dioxide 28 Anion Gap 6 L BUN 10 Creatinine 0.9 Random Glucose 106 Calcium 8.4 L Phosphorus 3.5 Magnesium 2.1 Active Medications Generic Name Dose Route Start Last Admin Trade Name Swapnilq PRN Reason Stop Dose Admin Acetaminophen 650 mg 02/18/17 07:47 02/18/17 09:21 Tylenol - PO 02/20/17 11:52 650 mg Q4H PRN Administration SEVERE PAIN 6-10 Acetaminophen 325 mg 02/18/17 07:47 Tylenol - PO 02/20/17 12:03 Q4H PRN MILD PAIN 1-5 Albuterol/Ipratropium 1 amp 02/18/17 12:00 02/19/17 07:00 Duoneb - NEB 1 amp QIDR [facility] Administration Allopurinol 100 mg 02/18/17 10:00 02/18/17 09:22 Zyloprim - PO 100 mg DAILY [facility] Administration Amlodipine Besylate 10 mg 02/18/17 10:00 02/18/17 09:22 Norvasc - PO 10 mg DAILY [facility] Administration Atorvastatin Calcium 10 mg 02/18/17 22:00 02/18/17 22:16 Lipitor - PO 10 mg HS [facility] Administration Buspirone HCl 30 mg 02/18/17 10:00 02/18/17 22:15 Buspar - PO 30 mg BID [facility] Administration Chlordiazepoxide HCl 15 mg 02/18/17 07:47 Librium - PO 02/19/17 00:01 Q6HPO PRN WITHDRAWAL(CONT SUBST) Chlorhexidine Gluconate 1 applic 02/18/17 22:00 02/18/17 22:16 Hibiclens For Decolonization - TP Not Given HS [facility] Cholecalciferol 2,000 unit 02/18/17 10:00 02/18/17 09:22 Vitamin D3 - PO 2,000 unit DAILY [facility] Administration Folic Acid 1 mg 02/18/17 10:00 02/18/17 09:22 Folic Acid - PO 1 mg DAILY [facility] Administration Gabapentin 800 mg 02/18/17 10:00 02/18/17 22:16 Neurontin - PO 800 mg BID [facility] Administration Heparin Sodium (Porcine) 5,000 unit 02/18/17 10:00 02/18/17 22:14 Heparin - SQ 5,000 unit BID [facility] Administration Hydromorphone HCl 1 mg 02/18/17 07:47 02/19/17 06:47 Dilaudid Injection - IVPUSH 1 mg Q4H PRN Administration PAIN Multivitamins/Minerals/Vitamin C 1 tab 02/18/17 10:00 02/18/17 09:22 Tab-A-Vit - PO 1 tab DAILY [facility] Administration Mupirocin 1 applic 02/18/17 10:00 02/18/17 22:15 Bactroban Ointment (For Decolonization) - NS 02/21/17 21:59 Not Given BID [facility] Oxycodone HCl 10 mg 02/18/17 07:47 02/18/17 09:21 Roxicodone - PO 02/20/17 11:52 10 mg Q4H PRN Administration SEVERE PAIN 6-10 Oxycodone HCl 5 mg 02/18/17 07:47 Roxicodone - PO 02/20/17 12:03 Q4H PRN MILD PAIN 1-5 Quetiapine Fumarate 300 mg 02/18/17 16:30 02/18/17 17:08 Seroquel Xr - PO 300 mg ACDIN [facility] Administration Sertraline HCl 200 mg 02/18/17 16:30 02/18/17 17:08 Zoloft - PO 200 mg ACDIN [facility] Administration Thiamine HCl 100 mg 02/18/17 10:00 02/18/17 09:21 Vitamin B1 - PO 100 mg DAILY [facility] Administration ASSESSMENT/PLAN: 56yo M with PMH of current smoker (6 cigarettes/day), Right lung CA, CAD with 2 stents, htn, hld, gout, presented with worsening cough and sputum production and admitted to med-surg in preparation for lung biopsy and possible lung surgery. 1) Laryngeal squamous cell Ca - laryngectomy scheduled for tomorrow - npo after midnight - heparin D/Michael - f/u CT soft tissue neck - f/u CTA of sheree LE - Pre-Op risk stratification: moderate risk procedure. Hx of CAD, but no acute s/s. Pt has good functional capacity. Pt is at intermediate risk for cardiac event in this intermediate risk procedure. Pt is medically optimized for this surgery, and no further Cardiac w/u is necessary prior to this surgery. 2) RUL adenocarcinoma - s/p Right VATS wedge resection 02/16/17 - Dilaudid 0.5mg IVpush q4hr prn and Percocet q4hr prn. - incentive spirometry - pt encouraged to use device - Chest tube to stay in place until G-tube is placed s/p subtotal pharyngectomy procedure tomorrow - O2 prn 3) ETOH abuse - no signs of withdrawal - continue thiamine, folic acid, and MVI - Librium protocol prn 4) CAD s/p 2 stents - hold ASA - continue Lipitor 5) htn - continue Norvasc 6) hld - continue Lipitor 7) gout - continue Allopurinol 8) poor dentition - f/u as outpatient 10) FEN - Fluids: encourage po - Electolytes: wnl, continue to monitor. - Nutrition: low sodium diet, npo after midnight 11) DVT Prophylaxis - Heparin D/Michael - sheree SCDs Visit type - Emergency Visit Emergency Visit: Yes ED Registration Date: 02/11/17 Care time: The patient presented to the Emergency Department on the above date and was hospitalized for further evaluation of their emergent condition. - New Patient This patient is new to me today: No - Critical Care Critical Care patient: No
--- NOTE | 2017-02-19 10:21 | PN ---
Progress Note (short form) - Note Progress Note: PULMONARY Some discomfort at chest tube site but controlled with current regimen. No shortness of breath. Last Vital Signs Temp Pulse Resp BP Pulse Ox 99.2 F 91 H 20 115/72 96 02/19/17 07:27 02/19/17 07:27 02/19/17 07:27 02/19/17 07:27 02/18/17 11:20 Gen: NAD at rest Heart: RRR Lung: decreased breath sounds at the bases Abd: soft, nontender Ext: no edema Chest tube: no air leak, serosanguinous drainage CBC, BMP 02/18/17 07:00 02/18/17 07:00 Active Medications Acetaminophen (Tylenol -) 650 mg PO Q4H PRN PRN Reason: SEVERE PAIN 6-10 Stop: 02/20/17 11:52 Last Admin: 02/18/17 09:21 Dose: 650 mg Acetaminophen (Tylenol -) 325 mg PO Q4H PRN PRN Reason: MILD PAIN 1-5 Stop: 02/20/17 12:03 Albuterol/Ipratropium (Duoneb -) 1 amp NEB QIDR [facility] Last Admin: 02/19/17 07:00 Dose: 1 amp Allopurinol (Zyloprim -) 100 mg PO DAILY [facility] Last Admin: 02/18/17 09:22 Dose: 100 mg Amlodipine Besylate (Norvasc -) 10 mg PO DAILY [facility] Last Admin: 02/18/17 09:22 Dose: 10 mg Atorvastatin Calcium (Lipitor -) [address] [facility] Last Admin: 02/18/17 22:16 Dose: 10 mg Buspirone HCl (Buspar -) 30 mg PO BID [facility] Last Admin: 02/18/17 22:15 Dose: 30 mg Chlordiazepoxide HCl (Librium -) 15 mg PO Q6HPO PRN PRN Reason: WITHDRAWAL(CONT SUBST) Stop: 02/19/17 00:01 Chlorhexidine Gluconate (Hibiclens For Decolonization -) [address] [facility] Last Admin: 02/18/17 22:16 Dose: Not Given Cholecalciferol (Vitamin D3 -) 2,000 unit PO DAILY [facility] Last Admin: 02/18/17 09:22 Dose: 2,000 unit Folic Acid (Folic Acid -) 1 mg PO DAILY [facility] Last Admin: 02/18/17 09:22 Dose: 1 mg Gabapentin (Neurontin -) 800 mg PO BID [facility] Last Admin: 02/18/17 22:16 Dose: 800 mg Heparin Sodium (Porcine) (Heparin -) 5,000 unit SQ BID [facility] Last Admin: 02/18/17 22:14 Dose: 5,000 unit Hydromorphone HCl (Dilaudid Injection -) 1 mg IVPUSH Q4H PRN PRN Reason: PAIN Last Admin: 02/19/17 06:47 Dose: 1 mg Multivitamins/Minerals/Vitamin C (Tab-A-Vit -) 1 tab PO DAILY [facility] Last Admin: 02/18/17 09:22 Dose: 1 tab Mupirocin (Bactroban Ointment (For Decolonization) -) 1 applic NS BID [facility] Stop: 02/21/17 21:59 Last Admin: 02/18/17 22:15 Dose: Not Given Oxycodone HCl (Roxicodone -) 10 mg PO Q4H PRN PRN Reason: SEVERE PAIN 6-10 Stop: 02/20/17 11:52 Last Admin: 02/18/17 09:21 Dose: 10 mg Oxycodone HCl (Roxicodone -) 5 mg PO Q4H PRN PRN Reason: MILD PAIN 1-5 Stop: 02/20/17 12:03 Quetiapine Fumarate (Seroquel Xr -) 300 mg PO ACDIN [facility] Last Admin: 02/18/17 17:08 Dose: 300 mg Sertraline HCl (Zoloft -) 200 mg PO ACDIN [facility] Last Admin: 02/18/17 17:08 Dose: 200 mg Thiamine HCl (Vitamin B1 -) 100 mg PO DAILY [facility] Last Admin: 02/18/17 09:21 Dose: 100 mg A/P NSCLC - Adenocarcinoma s/p R VATS/Wedge Resection/CT placement 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
[2017-02-19] MEDS ORDERED: PT OWN MED DRAWER 7, Y5N ONE ×3 (11:20→20:30)
[2017-02-19] MEDS: GABAPENTIN 400 MG CAPSULE (FP) PO SCH ×2 (11:30→21:38)
[2017-02-19] MEDS: amLODIPine BESYLATE 10 MG TABLET (FP) PO SCH (11:30)
[2017-02-19] MEDS: ALLOPURINOL 100 MG TABLET (FP) PO SCH (11:30)
[2017-02-19] MEDS: THIAMINE HCL 100 MG TABLET (FP) PO SCH (11:30)
[2017-02-19] MEDS: MULTIVITAMINS (DAILY MVI) TABLET (FP) PO SCH (11:30)
[2017-02-19] MEDS: CHOLECALCIFEROL (VITAMIN D3) 1,000 UNIT TABLET (FP) PO SCH (11:30)
[2017-02-19] MEDS: FOLIC ACID 1 MG TABLET (FP) PO SCH (11:30)
[2017-02-19] MEDS: MUPIROCIN 2% TOPICAL OINTMENT FOR DECOLONIZATION NS SCH ×2 (11:31→21:40)
[2017-02-19] MEDS: busPIRone HCL 10 MG TABLET (FP) PO SCH ×2 (11:31→21:39)
[2017-02-19] MEDS: HEPARIN NA (PORCINE) 5,000 UNITS/ML 1ML VIAL SQ SCH ×2 (11:31→21:39)
--- NOTE | 2017-02-19 12:15 | SPA.PREOP ---
- PRE-OP NOTE Dx: Pyriform sinus cancer Planned Procedure: Total laryngectomy, bilateral modified radical neck dissection, open gastrostomy, radical forearm flap, anterolateral flap vs. pectoralis flap Surgeons: Rakan/Head & Neck, Subhash/General, Elise/Plastics Consent: To be obtained by surgeons after risks, benefits and alternatives explained. Last Vital Signs Temp Pulse Resp BP Pulse Ox 99.2 F 91 H 20 115/72 96 02/19/17 07:27 02/19/17 12:00 02/19/17 07:27 02/19/17 07:27 02/19/17 12:00 CBC, BMP 02/18/17 07:00 02/18/17 07:00 Blood Type Blood Type O POSITIVE 02/14/17 15:40 INR, PTT INR 0.98 (0.82-1.09) 02/16/17 05:35 - ASSESSMENT/PLAN Problem List - Problems (1) Pyriform sinus cancer Assessment/Plan: 1. NPO after midnight except PO meds 2. GI/DVT PPX 3. Medical optimization / clearance 4. 2 PRBC on hold for OR Code(s): C12 - MALIGNANT NEOPLASM OF PYRIFORM SINUS Visit type - Case Type Case Type: ED Admission - New patient This patient is new to me today: Yes Date on this admission: 02/19/17
--- NOTE | 2017-02-19 14:57 | PATH ---
Surgical Pathology Report Patient Name: KEVIN HOOD Med. Rec. #: [id number] /Age/Gender: 1960 (Age: 56) / M Account: [id number] Location: [facility] Taken: 02/16/2017 Received: 02/16/2017 Reported: 02/19/2017 Physicians: Maddie Mahajan M.D. Specimen(s) Received A: RIGHT UPPER LOBE WEDGE B: DEEP MARGIN FOR FROZEN SECTION C: RIGHT LYMPH NODE #4 Clinical History Lung cancer Intraoperative Consult Diagnosis A. Right lung upper wedge resection: Margins are grossly negative. B. Lung, deep margin, frozen section: Negative for tumor. Deni Balderas M.D., 02/16/17 Final Diagnosis A. LUNG, UPPER LOBE, RIGHT, WEDGE RESECTION (FS): INVASIVE ADENOCARCINOMA, MODERATELY DIFFERENTIATED (G2), ACINAR PREDOMINANT WITH LEPIDIC, SOLID, AND FOCAL MICROPAPILLARY COMPONENTS. INVASIVE CARCINOMA MEASURES 2.2 X 2.1 CM IN GREATEST MICROSCOPIC DIMENSION. PLEURAL INVASION PRESENT (PL1). LYMPHOVASCULAR INVASION PRESENT. SURGICAL MARGINS ARE NEGATIVE FOR CARCINOMA, CARCINOMA IS 2 CM FROM CLOSEST PARENCHYMAL MARGIN. PRIOR BIOPSY SITE CHANGES PRESENT. SEE INVASIVE CARCINOMA CHECKLIST BELOW. PATHOLOGIC STAGE (pTNM): pT2a N0 B. LUNG, DEEP MARGIN, EXCISION (FS): BENIGN LUNG PARENCHYMA. NEGATIVE FOR CARCINOMA. C. LYMPH NODE #4, RIGHT, EXCISION: ONE BENIGN LYMPH NODE ON H&E AND AE1/3 IMMUNOHISTOCHEMICAL STAIN (). Comment: Immunohistochemical stains performed and interpreted at [facility] show the tumor is positive for cytokeratin AE1/3, TTF-1, while negative for P63. Elastin stain demonstrate visceral pleural invasion (PL1). Prior material from the pyriform sinus ([id number]) is reviewed and appear morphologically different. Comments Lung Carcinoma: Surgical Pathology Cancer Case Summary (Checklist) Based on AJCC/UICC TNM, 7th edition Specimen Laterality _X_ Right Specimen Integrity _X_ Intact Tumor Site _X_ Upper lobe Tumor Size Greatest dimension: 2.2 cm Tumor Focality _X_ Unifocal Histologic Type : Histologic Grade _X_ G2: Moderately differentiated Visceral Pleura Invasion _X_ Present (PL1) Tumor Extension : Margins Bronchial Margin _X_ Not applicable Vascular Margin _X_ Not applicable Parenchymal Margin _X_ Uninvolved by invasive carcinoma Parietal Pleural Margin _X_ Not applicable Chest Wall Margin _X_ Not applicable Lymph-Vascular Invasion _X_ Present Pathologic Staging (pTNM) Primary Tumor: PT2a Regional Lymph Nodes: pN0 Number examined _1__ Number involved _0__ Distant Metastasis: pMx Electronically Signed Christina Anderson M.D. Gross Description A. Received fresh labeled "right upper lobe wedge," is a 10.0 x 3.4 x 2.8 cm wedge of lung with a stapled margin of resection. The pleura is henderson brown with a focal umbilication. Sectioning reveals a 2.2 x 2.1 x 1.7 cm henderson mass abutting the pleura at the focus of the pleural umbilication. The mass is at 2 cm from the stapled margin. The remaining lung parenchyma is red-brown and spongy. An intraoperative gross examination is performed. Finance Professor sections are submitted in 7 cassettes as follows: 1-full face section of mass with pleura; 6-7-[id number] mass with pleura; 8-7-uydsptkvme lung parenchyma; 7-shave of staple line. B. Received fresh labeled "deep margin for frozen section," is a 1.1 x 0.3 x 0.2 cm henderson brown, irregular soft tissue fragment. The specimen is submitted for frozen section. The frozen section residue is entirely submitted in one cassette. C. Received in formalin labeled "right lymph node #4," is a 0.5 x 0.4 x 0.2 cm ortiz, irregular lymph node with attached fat. The specimen is submitted in toto in one cassette. 02/16/201702/16/2017
--- NOTE | 2017-02-19 15:29 | CONSULT ---
Consult - text type - Consultation Consultation Note: Patient seen and examined. Recovering well from Chest Surgery. Discussed options of laryngectomy versus nonsurgical treatment though I strongly recommend laryngectomy. He understands that he will lose his voice box and have a permanent hole on the front of the neck through which he will breathe. I also explained in detail the nature of the operation including a feeding tube and need for flap reconstruction. We discussed the possibility of needing a redo flap if the first flap fails. He understands and wishes to proceed. NPO p Midnight. For surgery in AM.
[2017-02-19] MEDS: SERTRALINE HCL 50 MG TABLET (FP) PO SCH (17:46)
--- NOTE | 2017-02-19 18:28 | PN ---
Teaching Attending Note Name of Resident: Gloria Zaldivar ATTENDING PHYSICIAN STATEMENT I saw and evaluated the patient. I reviewed the resident's note and discussed the case with the resident. I agree with the resident's findings and plan as documented. SUBJECTIVE: no fever or chills. has no abd pain , no SOB OBJECTIVE: NAD CV: RRR Lungs : decreased breath sounds at R base. no wheezes ABd: soft, NT, ND , NL BS . chest tube seen just below costal margin . serosanguinus drainage in Ext : no edema A/P 56 y/o gentleman with h/o Nicotine dependence, HTn, CAD s/p Stenting , hyperlipidemia and recently diagnosed R lung adenocarcinoma who presented for pulmonary resection. 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 - cont pain control 2- Laryngeal SCC : - NPO after MN for laryngectomy - Pre-Op risk stratification: please see yesterday's note 3- H/o HTN: cont norvasc 4- CAD : cont to hold Asa for surgery 5- H/o Occasional ETOH use: no signs of withdrawal 6- dispo : HLOC
--- NOTE | 2017-02-19 20:39 | PN ---
Progress Note (short form) - Note Progress Note: Patient seen and examined Denies any complaints Last Vital Signs Temp Pulse Resp BP Pulse Ox 98.2 F 82 18 112/70 96 02/19/17 17:41 02/19/17 17:41 02/19/17 17:41 02/19/17 17:41 02/19/17 12:00 CBC, BMP 02/18/17 07:00 02/18/17 07:00 Current Medications Generic Name Dose Route Start Last Admin Trade Name Freq PRN Reason Stop Dose Admin Acetaminophen 650 mg 02/18/17 07:47 02/18/17 09:21 Tylenol - PO 02/20/17 11:52 650 mg Q4H PRN Administration SEVERE PAIN 6-10 Acetaminophen 325 mg 02/18/17 07:47 Tylenol - PO 02/20/17 12:03 Q4H PRN MILD PAIN 1-5 Albuterol/Ipratropium 1 amp 02/18/17 12:00 02/19/17 17:47 Duoneb - NEB Not Given QIDR JUNIOR Allopurinol 100 mg 02/18/17 10:00 02/19/17 11:30 Zyloprim - PO 100 mg DAILY JUNIOR Administration Amlodipine Besylate 10 mg 02/18/17 10:00 02/19/17 11:30 Norvasc - PO 10 mg DAILY JUNIOR Administration Atorvastatin Calcium 10 mg 02/18/17 22:00 02/18/17 22:16 Lipitor - PO 10 mg HS JUNIOR Administration Buspirone HCl 30 mg 02/18/17 10:00 02/19/17 11:31 Buspar - PO 30 mg BID JUNIOR Administration Chlordiazepoxide HCl 15 mg 02/18/17 07:47 Librium - PO 02/19/17 00:01 Q6HPO PRN WITHDRAWAL(CONT SUBST) Chlorhexidine Gluconate 1 applic 02/18/17 22:00 02/18/17 22:16 Hibiclens For Decolonization - TP Not Given HS [facility] Cholecalciferol 2,000 unit 02/18/17 10:00 02/19/17 11:30 Vitamin D3 - PO 2,000 unit DAILY JUNIOR Administration Folic Acid 1 mg 02/18/17 10:00 02/19/17 11:30 Folic Acid - PO 1 mg DAILY JUNIOR Administration Gabapentin 800 mg 02/18/17 10:00 02/19/17 11:30 Neurontin - PO 800 mg BID JUNIOR Administration Heparin Sodium (Porcine) 5,000 unit 02/18/17 10:00 02/19/17 11:31 Heparin - SQ 02/19/17 22:00 5,000 unit BID JUNIOR Administration Hydromorphone HCl 1 mg 02/18/17 07:47 02/19/17 11:29 Dilaudid Injection - IVPUSH 1 mg Q4H PRN Administration PAIN Multivitamins/Minerals/Vitamin C 1 tab 02/18/17 10:00 02/19/17 11:30 Tab-A-Vit - PO 1 tab DAILY JUNIOR Administration Mupirocin 1 applic 02/18/17 10:00 02/19/17 11:31 Bactroban Ointment (For Decolonization) - NS 02/21/17 21:59 Not Given BID JUNIOR Oxycodone HCl 10 mg 02/18/17 07:47 02/18/17 09:21 Roxicodone - PO 02/20/17 11:52 10 mg Q4H PRN Administration SEVERE PAIN 6-10 Oxycodone HCl 5 mg 02/18/17 07:47 Roxicodone - PO 02/20/17 12:03 Q4H PRN MILD PAIN 1-5 Quetiapine Fumarate 300 mg 02/18/17 16:30 02/19/17 17:46 Seroquel Xr - PO 300 mg ACDIN JUNIOR Administration Sertraline HCl 200 mg 02/18/17 16:30 02/19/17 17:46 Zoloft - PO 200 mg ACDIN JUNIOR Administration Thiamine HCl 100 mg 02/18/17 10:00 02/19/17 11:30 Vitamin B1 - PO 100 mg DAILY JUNIOR Administration Cor: RSR, No murmurs, No gallops Lungs: Chest tube + Abd: Soft, Normal bowel sounds, No organomegaly Ext:No significant edema Skin: No rashes, Integument intact 56 y/o patient with newly diagnosed RUL adenocarcinoma PET avid Supraglottic lesion Alcohol abuse Ex-smoker -ENT f/u noted -for sx -RUL adenoca -chest CT 02/09 -- upper abdomen --no lesions, -increased RUL mass--T2 -Stage IB lung clinically -CT head with and without contrast shows no mets -adjuvant tx if needed to be decided once the final path would be reported dShannanw pt, pts mom and sister
[2017-02-19] MEDS: ATORVASTATIN CA 10 MG TABLET (FP) PO SCH (21:38)
[2017-02-19] MEDS: CHLORHEXIDINE GLUCONATE 4% CLEANSER FOR DECOLONIZATION TP SCH (21:38)
[2017-02-20] MEDS: ALBUTEROL SO4 2.5/IPRATROPIUM 0.5 INH SOL 3 ML VIAL.NEB. NEB SCH ×3 (00:07→13:10)
[2017-02-20] MEDS ORDERED: ceFAZolin SODIUM 1 GM VIAL ONE ×2 (08:18→19:22)
[2017-02-20] MEDS ORDERED: PROPOFOL 20 ML ONE ×5 (08:18→12:37)
[2017-02-20] MEDS ORDERED: ROCURONIUM BROMIDE 50 MG/5 ML VIAL ONE ×2 (08:18→09:10)
[2017-02-20] MEDS ORDERED: MIDAZOLAM HCL 2 MG/2 ML SINGLE DOSE VIAL ONE ×4 (08:19→19:27)
[2017-02-20] MEDS ORDERED: HYDROmorphone HCL/PF 1 MG/ML VIAL (FOR PYXIS CHARGING ONLY) ONE ×2 (08:23→15:34)
[2017-02-20 08:31] LABS: MCH 32.1 pg (25.7-33.7); MCHC 33.7 g/dl (32.0-35.9); MEAN CELL VOLUME 95.2 fl (80-96); MEAN PLT VOLUME 9.8 fl (7.5-11.1); PLATELET COUNT 207 K/MM3 (134-434); RDW 13.2 % (11.9-15.9); WHITE BLOOD COUNT 7.9 K/mm3 (4.0-10.0)
[2017-02-20 08:50] LABS: ANION GAP 7 (8-16); CALCIUM 8.9 mg/dL (8.5-10.1); CO2 28 mmol/L (21-32); GLUCOSE,RANDOM 93 mg/dL (74-106)
[2017-02-20] MEDS ORDERED: ceFAZolin SODIUM 1 GM VIAL IVPB ONE (08:52)
[2017-02-20] MEDS ORDERED: HYDROCORTISONE SOD SUCCINATE 2 ML ONE ×2 (09:10)
[2017-02-20] MEDS ORDERED: SEVOFLURANE 250 ML BTL ONE (09:44)
[2017-02-20] MEDS ORDERED: METRONIDAZOLE 500 MG PREMIXED 100 ML IVPB ONE (10:10)
[2017-02-20] MEDS ORDERED: fentaNYL CITRATE 250 MCG/5 ML VIAL ONE ×2 (10:14)
[2017-02-20] MEDS: GABAPENTIN 400 MG CAPSULE (FP) PO SCH (11:01)
[2017-02-20] MEDS: busPIRone HCL 10 MG TABLET (FP) PO SCH ×2 (11:01→22:56)
[2017-02-20] MEDS: FOLIC ACID 1 MG TABLET (FP) PO SCH (11:01)
[2017-02-20] MEDS: MUPIROCIN 2% TOPICAL OINTMENT FOR DECOLONIZATION NS SCH ×2 (11:01→22:56)
[2017-02-20] MEDS: MULTIVITAMINS (DAILY MVI) TABLET (FP) PO SCH (11:02)
[2017-02-20] MEDS: amLODIPine BESYLATE 10 MG TABLET (FP) PO SCH (11:02)
[2017-02-20] MEDS: ALLOPURINOL 100 MG TABLET (FP) PO SCH (11:02)
[2017-02-20] MEDS: CHOLECALCIFEROL (VITAMIN D3) 1,000 UNIT TABLET (FP) PO SCH (11:02)
[2017-02-20] MEDS: THIAMINE HCL 100 MG TABLET (FP) PO SCH (11:02)
[2017-02-20] MEDS ORDERED: DEXAMETHASONE SOD PHOSPHATE 4 MG/1 ML VIAL ONE (11:27)
[2017-02-20] MEDS ORDERED: ONDANSETRON 4 MG/2 ML VIAL ONE (11:27)
[2017-02-20] MEDS ORDERED: HEPARIN NA (PORCINE) 5,000 UNITS/ML 1ML VIAL ONE (12:12)
[2017-02-20] MEDS ORDERED: LIDOCAINE HCL 4% PRESERVE-FREE 5 ML AMP ONE ×4 (12:14→15:58)
[2017-02-20] MEDS ORDERED: MINERAL OIL 25 ML OIL ONE (15:25)
[2017-02-20] MEDS ORDERED: LIDOCAINE HCL 4% PRESERVE-FREE 5 ML AMP NR ONE (17:04)
[2017-02-20] MEDS ORDERED: MINERAL OIL 25 ML OIL TP ONE (18:30)
[2017-02-20] MEDS ORDERED: BACITRACIN 15 GM TUBE TOPICAL OINTMENT ONE (19:08)
[2017-02-20] MEDS ORDERED: BACITRACIN 15 GM TUBE TOPICAL OINTMENT TP ONE (19:12)
--- NOTE | 2017-02-20 20:07 | OP ---
Operative Note - Note: Operative Date: 02/20/17 Pre-Operative Diagnosis: pharyngeal cancer Operation: laryngectomy with left anterolateral thigh flap pharyngeal recnstruction, STSG from right thigh to left thigh Findings: above Post-Operative Diagnosis: Same as Pre-op Surgeon: Jaime Olivares Fish Rod Maker: Yong Mayers Anesthesia: General Drains & Tubes with Location: ANNA x 2 neck Operative Report Dictated: Yes
[2017-02-20] MEDS ORDERED: PROPOFOL 100 ML ONE (20:14)
[2017-02-20] MEDS ORDERED: LACTATED RINGERS SOLUTION 1,000 ML IV SCH (20:15)
--- NOTE | 2017-02-20 20:27 | PN ---
Teaching Attending Note Name of Resident: Kwabena Lainez ATTENDING PHYSICIAN STATEMENT I saw and evaluated the patient. I reviewed the resident's note and discussed the case with the resident. I agree with the resident's findings and plan as documented. SUBJECTIVE: sedated. just came back from OR. now in ICU OBJECTIVE: sedated, round equal pupils,vented through neck CV: RRR Lungs : cclear anteriorly Ext : surgical dressings on anterior thighs, surrounding edema ABd :soft, ND, absent BS ASSESSMENT AND PLAN: 56 y/o gentleman with h/o Nicotine dependence, HTn, CAD s/p Stenting , hyperlipidemia and recently diagnosed R lung adenocarcinoma who presented for pulmonary resection. 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 3- HTN -BP is 190s systolic , but just came out of OR. will asses in 15-20 min after sedation is started . then will treat if needed consider fentanyl gtt for pain control 4- CAD : cont to hold Asa ICU level of care Critical Care Total Critical Care Time (in minutes): 30 Critical Care Statement: The care of this patient involved high complexity decision making to prevent further life threatening deterioration of the patient 's condition and/or to evaluate & treat vital organ system(s) failure or risk of failure.
[2017-02-20] MEDS ORDERED: chlordiazePOXIDE 5 MG CAPSULE PO PRN (20:30)
[2017-02-20] MEDS ORDERED: HYDROmorphone HCL CARPU-JECT 1 MG/1 ML DISP.SYRIN IVPUSH PRN (20:30)
[2017-02-20] MEDS ORDERED: PROPOFOL 1000 MG/100 ML VIAL IVPB ONE (20:30)
[2017-02-20] MEDS ORDERED: LABETALOL HCL 5 MG/1 ML (100MG/20 ML VIAL) ONE (20:37)
[2017-02-20] MEDS: HYDROmorphone HCL CARPU-JECT 1 MG/1 ML DISP.SYRIN IVPUSH PRN ×2 (20:50→21:00)
--- NOTE | 2017-02-20 21:27 | PN ---
Progress Note (short form) - Note Progress Note: This is a 56 y/o gentleman with h/o Nicotine dependence, HTN, CAD s/p Stenting , HLD and recently diagnosed R lung adenocarcinoma, who presented for pulmonary resection. 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 Pt arrived to ICU at 8pm, s/p laryngectomy (with left anterolateral thigh flap pharyngeal reconstruction, STSG from right thigh to left thigh.) As per nurse, on arrival, pt was hypertensive (systolic 190s) and thus given labetalol push. Currently, pt is on IVF (LR), propofol, and fentanyl gtt 5ml/hr. laryngeal SCC s/p laryngectomy , with flap reconstruction -surgical site healing well -pt continued on mechanical vent and sedation -will continue to monitor and f/u with surgery
[2017-02-20 21:48] LABS: ARTERIAL BLD GAS O2 SATURATION 97.8 % (90-98.9); ARTERIAL BLOOD GAS HCO3 25.6 meq/L (22-26); ARTERIAL BLOOD GAS pH 7.36 (7.35-7.45)
[2017-02-20 21:50] LABS: ART PUNCT SITE ARTERIAL LINE
[2017-02-20 21:51] LABS: LPM/O2% 50%; MECH. VENT. YES; PT. ON O2? YES; TYPE OF O2 MECH.VENT
[2017-02-20 21:52] LABS: VENT RATE 12; VT/PRESS 500
[2017-02-20] MEDS: LACTATED RINGERS SOLUTION 1,000 ML IV SCH ×2 (22:00→22:50)
--- NOTE | 2017-02-20 22:31 | CONSULT ---
Consult Consult Specialty:: Pulmonary Critical care Reason for Consultation:: post laryngectomy - History of Present Illness History of Present Illness: 56 yo gentleman with h/o HTN, CAD s/p stenting, recently diagnosed R lung adenocarcinoma s/p wedge resection and CT placement. 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 Back in ICU on propofol and fentanyl drips with stable hemodynamics Current Medications Albuterol/Ipratropium (Duoneb -) 1 amp NEB QIDR [facility] Allopurinol (Zyloprim -) 100 mg PO DAILY JUNIOR Amlodipine Besylate (Norvasc -) 10 mg PO DAILY JUNIOR Buspirone HCl (Buspar -) 30 mg PO BID JUNIOR Chlordiazepoxide HCl (Librium -) 15 mg PO Q6HPO PRN PRN Reason: WITHDRAWAL(CONT SUBST) Stop: 02/21/17 12:01 Cholecalciferol (Vitamin D3 -) 2,000 unit PO DAILY [facility] Folic Acid (Folic Acid -) 1 mg PO DAILY [facility] Hydromorphone HCl (Dilaudid Injection -) 0.5 mg IVPUSH [id number] PRN PRN Reason: PAIN Stop: 02/23/17 20:15 Hydromorphone HCl (Dilaudid Injection -) 1 mg IVPUSH Q4H PRN PRN Reason: PAIN Lactated Ringer's (Lactated Ringers Solution) 1,000 mls @ 125 mls/hr IV ASDIR JUNIOR Fentanyl 500 mcg/ Dextrose 100 mls @ 5 mls/hr IJ TITR PRN PRN Reason: 25 MCG/HR Lactated Ringer's (Lactated Ringers Solution) 1,000 mls @ 75 mls/hr IV ASDIR JUNIOR Propofol (Diprivan -) 100 mls @ 8.369 mls/hr IVPB TITR JUNIOR; 15 MCG/KG/MIN PRN Reason: Protocol Multivitamins/Minerals/Vitamin C (Tab-A-Vit -) 1 tab PO DAILY [facility] Mupirocin (Bactroban Ointment (For Decolonization) -) 1 applic NS BID JUNIOR Stop: 02/25/17 21:59 Quetiapine Fumarate (Seroquel Xr -) 300 mg PO ACDIN JUNIOR Thiamine HCl (Vitamin B1 -) 100 mg PO DAILY JUNIOR - Past Medical History Cardio/Vascular: Yes: CAD, HTN, Hyperlipdemia - Alcohol/Substance Use Hx Alcohol Use: Yes - Smoking History Smoking history: Former smoker Have you smoked in the past 12 months: Yes Aproximately how many cigarettes per day: 6 If you are a former smoker, when did you quit?: 6 Home Medications - Allergies Allergies/Adverse Reactions: Allergies Allergy/AdvReac Type Severity Reaction Status Date / Time No Known Drug Allergies Allergy Verified 02/11/17 09:15 - Home Medications Home Medications: Ambulatory Orders Amlodipine Besylate 10 mg PO DAILY 12/23/16 Atorvastatin Ca [Lipitor] 10 mg PO HS 12/23/16 Gabapentin 800 mg PO TID 12/23/16 Quetiapine Fumarate "Xr" [Seroquel Xr -] 300 mg PO ACDIN 12/23/16 Sertraline HCl [Zoloft] 100 mg PO BID 12/23/16 Folic Acid 1 mg PO DAILY 01/02/17 Allopurinol [Zyloprim -] 100 mg PO DAILY 02/12/17 Aspirin [ASA -] 81 mg PO DAILY 02/12/17 Physical Exam Vital Signs: Vital Signs Temperature 99.6 F 02/20/17 20:00 Pulse Rate 97 H 02/20/17 20:40 Respiratory Rate 15 02/20/17 20:40 Blood Pressure 199/109 02/20/17 20:40 O2 Sat by Pulse Oximetry (%) 98 02/20/17 20:40 Cardiovascular: Yes: Regular Rate and Rhythm Respiratory: Yes: Mechanically Ventilated Gastrointestinal: Yes: Normal Bowel Sounds, Soft, Other (PEG c/d/i) Wound/Incision: Yes: Other (demond jaw area c/d/i, bilateral ANNA drains on either side of the neck, throat area dressing c/d/i. Graft areas on bilateral thighs c/d/i) Labs: CBC, BMP 02/20/17 07:00 02/20/17 07:00 Assessment/Plan R lung adenocarcinoma s/p wedge resection and CT Laryngeal SCC s/p laryngectomy with flap reconstruction -surgery following -monitor doppler--> page surgery if loss of flow -monitor ANNA output -check CBC post op -vent support -fentanyl/propofol for sedation Suzi DOMINGUEZ
[2017-02-20] MEDS: FENTANYL INJECTION 500 MCG in DEXTROSE 5%-WATER - 90 ML IJ PRN (23:00)
--- NOTE | 2017-02-20 23:50 | PN ---
Physical Exam: SUBJECTIVE: Patient seen and examined. Pt denies fever, chills, chest pain, palpitations, sob. Pt somewhat anxious for surgery today. No events overnight. OBJECTIVE: Vital Signs Period Temp Pulse Resp BP Sys/Clay Pulse Ox Last 24 Hr 98.2 F-99.6 F 81-97 12-20 122-206/84-117 96-100 GENERAL: The patient is awake, alert, and fully oriented, slightly anxious. LUNGS: Breath sounds equal, clear to auscultation bilaterally, no wheezes, no crackles, no accessory muscle use. HEART: Regular rate and rhythm, S1, S2 without murmur, rub or gallop. ABDOMEN: Soft, nontender, nondistended, normoactive bowel sounds, no guarding, no rebound. Chest tube to Right lateral chest wall just below costal margin, draining serosanguinous fluid, drainage appears minimal. EXTREMITIES: Warm, well-perfused, no edema. PSYCH: Normal mood, normal affect. SKIN: Warm, dry, normal turgor, no rashes or lesions noted Laboratory Results - last 24 hr 02/20/17 02/20/17 02/20/17 07:00 07:00 07:00 WBC 7.9 RBC 4.19 Hgb 13.4 Hct 39.8 MCV 95.2 MCH 32.1 MCHC 33.7 RDW 13.2 Plt Count 207 D MPV 9.8 Puncture Site ABG pH ABG pCO2 at Pt Temp ABG pO2 at Pt Temp ABG HCO3 ABG O2 Sat (Measured) ABG O2 Content ABG Base Excess Angel Test O2 Delivery Device Oxygen Flow Rate Vent Mode Vent Rate Mechanical Rate PEEP Pressure Support Vent Sodium 138 Potassium 4.4 Chloride 103 Carbon Dioxide 28 Anion Gap 7 L BUN 15 D Creatinine 1.0 POC Glucometer Random Glucose 93 Calcium 8.9 Blood Type O POSITIVE Antibody Screen Negative Crossmatch See Detail 02/20/17 02/20/17 21:30 23:01 WBC RBC Hgb Hct MCV MCH MCHC RDW Plt Count MPV Puncture Site Arterial line ABG pH 7.36 ABG pCO2 at Pt Temp 46.8 H ABG pO2 at Pt Temp 111.0 H ABG HCO3 25.6 ABG O2 Sat (Measured) 97.8 ABG O2 Content 20.9 ABG Base Excess 0.0 Angel Test Not applicable O2 Delivery Device Mech.vent Oxygen Flow Rate 50% Vent Mode A/c Vent Rate 12 Mechanical Rate Yes PEEP 5.0 Pressure Support Vent 500 Sodium Potassium Chloride Carbon Dioxide Anion Gap BUN Creatinine POC Glucometer [phone] Random Glucose Calcium Blood Type Antibody Screen Crossmatch Active Medications Generic Name Dose Route Start Last Admin Trade Name Freq PRN Reason Stop Dose Admin Albuterol/Ipratropium 1 amp 02/21/17 00:00 Duoneb - NEB QIDR [facility] Allopurinol 100 mg 02/21/17 10:00 Zyloprim - PO DAILY [facility] Amlodipine Besylate 10 mg 02/21/17 10:00 Norvasc - PO DAILY [facility] Buspirone HCl 30 mg 02/20/17 22:00 02/20/17 22:56 Buspar - PO Not Given BID [facility] Chlordiazepoxide HCl 15 mg 02/20/17 20:30 Librium - PO 02/21/17 12:01 Q6HPO PRN WITHDRAWAL(CONT SUBST) Cholecalciferol 2,000 unit 02/21/17 10:00 Vitamin D3 - PO DAILY [facility] Folic Acid 1 mg 02/21/17 10:00 Folic Acid - PO DAILY [facility] Hydromorphone HCl 1 mg 02/20/17 20:30 Dilaudid Injection - IVPUSH Q4H PRN PAIN Lactated Ringer's 1,000 mls @ 125 mls/hr 02/20/17 20:00 02/20/17 22:00 Lactated Ringers Solution IV 250 mls ASDIR JUNIOR Administration Fentanyl 500 mcg/ Dextrose 100 mls @ 5 mls/hr 02/20/17 20:15 IJ TITR PRN 25 MCG/HR Propofol 100 mls @ 8.369 mls/hr 02/20/17 20:15 Diprivan - IVPB TITR JUNIOR Protocol 15 MCG/KG/MIN Multivitamins/Minerals/Vitamin C 1 tab 02/21/17 10:00 Tab-A-Vit - PO DAILY [facility] Mupirocin 1 applic 02/20/17 22:00 02/20/17 22:56 Bactroban Ointment (For Decolonization) - NS 02/25/17 21:59 Not Given BID [facility] Quetiapine Fumarate 300 mg 02/21/17 16:30 Seroquel Xr - PO ACDIN [facility] Thiamine HCl 100 mg 02/21/17 10:00 Vitamin B1 - PO DAILY JUNIOR IMAGIN02/19/17 CT soft tissue neck and 02/19/17 CTA sheree LE -> obtained for surgery planning, reviewed. ASSESSMENT/PLAN: 56yo M with PMH of current smoker (6 cigarettes/day), Right lung CA, CAD with 2 stents, htn, hld, gout, presented with worsening cough and sputum production and admitted to med-surg in preparation for lung biopsy and possible lung surgery. 1) Laryngeal squamous cell Ca s/p laryngectomy with left anterolateral thigh flap pharyngeal reconstruction - laryngectomy scheduled for tomorrow - heparin D/Michael - monitor ANNA output - continue mechanical ventilation and sedation - Dilaudid 1mg IVpush q4hr prn for pain - transferred to ICU 2) RUL adenocarcinoma - s/p Right VATS wedge resection 02/16/17 3) CAD s/p 2 stents - hold ASA 4) htn - continue Norvasc 5) gout - continue Allopurinol 6) FEN - Fluids: LR @ 125 ml/hr - Electolytes: wnl, continue to monitor. - Nutrition: npo Visit type - Emergency Visit Emergency Visit: Yes ED Registration Date: 02/11/17 Care time: The patient presented to the Emergency Department on the above date and was hospitalized for further evaluation of their emergent condition. - New Patient This patient is new to me today: No - Critical Care Critical Care patient: Yes Total Critical Care Time (in minutes): 30 Critical Care Statement: The care of this patient involved high complexity decision making to prevent further life threatening deterioration of the patient 's condition and/or to evaluate & treat vital organ system(s) failure or risk of failure.
[2017-02-20] MEDS: PROPOFOL 100 ML IVPB SCH (23:58)
[2017-02-21] MEDS: ALBUTEROL SO4 2.5/IPRATROPIUM 0.5 INH SOL 3 ML VIAL.NEB. NEB SCH ×5 (00:30→23:11)
[2017-02-21] MEDS ORDERED: ACETAMINOPHEN 1000 MG/100 ML VIAL (NON FORMULARY) IVPB ONE (05:00)
[2017-02-21 06:26] LABS: MCH 33.1 pg (25.7-33.7); MCHC 35.1 g/dl (32.0-35.9); MEAN CELL VOLUME 94.3 fl (80-96); MEAN PLT VOLUME 9.8 fl (7.5-11.1); PLATELET COUNT 206 K/MM3 (134-434); RDW 13.1 % (11.9-15.9); WHITE BLOOD COUNT 10.2 K/mm3 (4.0-10.0)
[2017-02-21 07:06] LABS: ANION GAP 7 (8-16); CALCIUM 7.5 mg/dL (8.5-10.1); CO2 28 mmol/L (21-32); CREATININE 0.9 mg/dL (0.7-1.3); GLUCOSE,RANDOM 131 mg/dL (74-106); MAGNESIUM 1.5 mg/dL (1.8-2.4); PHOSPHOROUS 6.4 mg/dL (2.5-4.9)
--- NOTE | 2017-02-21 07:48 | PN ---
Progress Note (short form) - Note Progress Note: POD 1 s/p L ALT flap to pharynx Audible flow signals. Donor sites CDI Incision lines CDI, no hematoma, no collection. ANNA's thin and functioning well Awaking this AM, will maintain enough sedation to keep him from thrashing his neck around UOP excellent, will lower IVF CBC wnl thin morning NPO otherwise nornal ICU management with absolutely no pressors unless unavoidable continuous doppler monitoring
[2017-02-21] MEDS: LACTATED RINGERS SOLUTION 1,000 ML IV SCH (08:30)
--- NOTE | 2017-02-21 08:37 | PN ---
Teaching Attending Note Name of Resident: Kwabena Lainez ATTENDING PHYSICIAN STATEMENT I saw and evaluated the patient. I reviewed the resident's note and discussed the case with the resident. I agree with the resident's findings and plan as documented. SUBJECTIVE: this am , he was awake and moving. sedatioincreased. no other events OBJECTIVE: BP 108/60 on cuff, A line with no good wave with BP 60/40 with MAP of 60 sedated, round equal pupils,vented through neck CV: RRR Lungs : clear anteriorly Ext: surgical dressings on anterior thighs, surrounding edema. DP 2+ b/l ABd :soft, ND, absent BS. PEG ASSESSMENT AND PLAN: 56 y/o gentleman with h/o Nicotine dependence, HTn, CAD s/p Stenting , hyperlipidemia and recently diagnosed R lung adenocarcinoma who presented for pulmonary resection. 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 - A line with no good wave, BP through cuff is real - give Mag - might start feeding today 2-Lung cancer : s/p wedge resection and CT placement 3- HTN -Now BP on lower side on propofol - monitor 4- CAD : cont to hold Asa Start DVT PX if OK with Sx.
[2017-02-21] MEDS: PROPOFOL 100 ML IVPB SCH (09:00)
--- NOTE | 2017-02-21 09:24 | CONSULT ---
Consult - text type - Consultation Consultation Note: POD1 pharyngolaryngectomy, bilateral neck dissections, free flap reconstruction , STSG No events overnight, has remained stable. On examination he is sedated and in no distress, sleeping. Wounds are clean, dry and intact. Drains are blood tinged bilaterally. Endotracheal tube is in the tracheostome and secure. Chest tube is in place. Gastrostomy is in place and wound dressing is clean and dry. Doppler monitor is giving a good continuous signal. Assessment: doing well post-op. Plan: gradually wean sedation and wean from ventilator. Once he is ready for extubation the cuff can be deflated and the tube removed. If reintubation is necessary, the tube and can be replaced into the tracheostome but should only be inserted to the second black line (4-5 cm). Continue drains. Keep NPO until he is more awake. Will discuss with plastic surgery timing of starting SQ heparin and aspirin. Continue all other medications. I can be reached at [phone] at any time for questions or problems.
[2017-02-21] MEDS ORDERED: HEMOQUE TEST 1 EACH EACH ONE (09:42)
--- NOTE | 2017-02-21 09:43 | OP ---
DATE OF OPERATION: 02/20/2017 TITLE OF PROCEDURE: 1. 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 2. Split-thickness skin graft from right thigh to left thigh donor site from flap, 100 sq cm. ATTENDING SURGEON: Jaime Olivares MD CO-SURGEON: Yong Mayers MD RESERVATION AGENT: WHITNEY Baugh ANESTHESIA: General endotracheal anesthesia. The procedure is done in combination with a laryngectomy and subtotal pharyngectomy performed by Dr. Fabio Bledsoe and Dr. Cullen. That portion of the procedure will be dictated by the other team. The patient is seen the night before, counseled on all risks, benefits, and alternatives to the procedure. It was discussed with the patient the risk of flap failure as well as the risks inherent in lengthy surgery. He understands and also understands the need to proceed. The patient had been brought to the operating room, positioned, prepped and draped in the morning by Dr. Fabio Bledsoe and his team. My plastic surgical team did not arrive until several hours later as Dr. Bledsoe's team was completing the neck surgery. At this point, a timeout was called. Patient, procedure, side, sites were verified. Given the defect in the neck, it is determined that the optimal flap coverage for the procedure would be the left anterolateral thigh flap. This is also coordinated with a CT angiogram which demonstrates the optimal blood vessels for flap transfer to be on the patient's left lateral thigh. At this point, the procedure is as follows. Incision is made over the medial border of the rectus femoris muscle where dissection is carried down to the level of the investing muscular fascia. The fascia is reflected laterally until an intramuscular septum is identified between the rectus femoris and the vastus lateralis muscle. With retraction of the rectus femoris muscle, dissection is carried within the septum until a perforating branch of blood vessels is found within the septum. This is traced along the septum and partially into the anterior border of the vastus lateralis muscle. The blood vessel is then traced proximally, ligating branches between Ligaclips as needed until the main dominant pedicle is identified as the descending branch of the lateral femoral circumflex artery. This is traced within the septum between the vastus lateralis and rectus femoris muscle proximally. At this point, the lateral incision is made, leaving a 15-cm width flap for purposes of tubing the flap to reconstruct the pharynx. Lateral incision is made over the tensor fascia gemma iliotibial band. Dissection carried down to the level of the iliotibial band which is incised and reflected medially until the same septum is able to be identified and the perforating subcutaneous blood vessels are found within. Once the flap was entirely isolated on the septum and the pedicle, small branches of the pedicle are divided between Ligaclips until the base of the pedicle is able to be identified and prepared for ligation and transfer once the completion of the neck surgery is reached. At this point, we paused while the completion of the neck surgery is performed. After a short pause and completion of the neck surgery, the operation is transferred to the neck where identification of recipient blood vessels is performed. The defect is assessed to be from the epiglottis to the inferior extent of the cervical esophagus, leaving a posterior strip of esophageal and pharyngeal wall. The length of this defect is 9.5 cm. We are able to identify good usable facial artery and facial vein on the right side as well as an adequate external jugular vein. These vessels are dissected and mobilized and prepared for anastomosis. At this point, the flap is divided and between Ligaclips in the thigh. A moist lap is placed over the donor site where the flap is then transferred to the neck and oriented. The pedicle is aligned and the blood vessels are placed in alignment for microvascular anastomosis. At this point, the microscope is brought into the field. Attention is first paid to the pedicle where the blood vessels in the pedicle are in order to allow for a venous anastomosis at 2 separate locations. These vessels on the flap pedicle are prepared for anastomosis. The venous anastomosis to the facial vein is performed first using a microsurgical policy advisor. A 3.5 coupling device is used after measuring the lumens of the vessels. The policy advisor is brought on to the field. The pedicle vein is everted over the coupling spikes and seated on the spikes. The facial vein is then likewise everted over the coupling spikes and the policy advisor is closed, yielding an anatomic coupled anastomosis. Attention is then directed toward the external jugular vein where first the pedicle vein is everted over the coupling spikes. Again, a 3.5-mm policy advisor is used. It is seated on the coupling spikes. The external jugular vein is likewise everted over the coupling spikes and a secure coupled anastomosis is then performed. The coupling devices are seated firmly within 1 another. Attention is then paid toward the arterial anastomosis where the pedicle artery as well as the facial artery is placed in alignment between double-approximating green clamps. All pedicle and recipient vessels are flushed with heparinized saline. Please note that the flap prior to its anastomosis was flushed with heparinized saline through the artery with good flow of heparinized saline seen from the pedicle veins. This was done prior to any anastomosis. The arterial anastomosis is then performed using 8-0 nylon interrupted suture. At completion of the arterial anastomosis, clamps are removed first from the veins followed by the arteries where a good flow is seen across the arterial anastomosis as well as across the venous anastomoses. Hand-held Doppler is able to assure good flow within the pedicle of the flap. There is good bright-red bleeding on the edges of the flap. A window is made within the pedicle to place the implantable Doppler device which is secured with microclips, not compressing the artery. Good audible flow signals are seen and the signal is heard throughout the rest of the case. At this point, attention is directed toward insetting the flap as a tube, reconstructing the anterior 3/4 of the pharynx. The flap is trimmed to conform to the proper dimensions in a trapezoidal paddle. The mucosal free edges are secured to the free edges of the skin paddle with a series of interrupted horizontally mattressed 2-0 Vicryl suture. This is done circumferentially around the defect, leaving a widely patent tube for esophageal reconstruction. A 2nd layer is then performed with a running suture from the deep fibrous tissue of the flap to the submucosal tissue of the residual pharyngeal strip as a 2nd layer to protect against leaks. The neck is copiously irrigated. Simultaneously, reconstruction of the left thigh donor site is performed with a split-thickness skin graft. A 10 x 10 sq cm defect is measures on the left thigh. The left thigh is prepared for twisthand of the skin graft first by sewing the free edges of the vastus lateralis and rectus femoris muscles to one another with a series of interrupted buried 2-0 Vicryl suture. The skin edges are closed superiorly partially by primary closure with a series of interrupted buried deep dermal 3-0 Vicryl suture followed by a running subcuticular 3-0 Monocryl suture. The remaining wound is marsupialized with attachment of the skin edges to the muscle, leaving a fully prepared wound for skin graft on to the freely exposed muscle bellies. On the contralateral right side, a 10 x 10 sq cm split-thickness skin graft is harvested at 0.012 inch. This is then meshed at 1.5:1 mesher, secured to the borders of the defect with a series of interrupted demond. While the neck closure is performed, a stapled bolster to the right/left thigh is performed. The closure of the neck is done with a series of interrupted buried deep dermal 3-0 Monocryl suture. This is done over 2 size 10 flat J-P drains, the left drain placed on the inferior recess of the wound and the right drain on the superior recess of the wound. No drain is placed directly over the pedicle anastomosis. Drains are secured with 3-0 silk drain suture. The closure of the neck is loose to allow for staple remover and evacuation of fluid or hematoma should it be necessary. The leg dressing on the left is bacitracin, Xeroform, copious cotton, and a sterile towel stapled to the surrounding skin as a pseudo bolster. On the right side, a dressing of Xeroform, Telfa, ABD gauze, and Hypafix tape is applied. Drains are placed to bulb suction. The patient is awoken from anesthesia, having tolerated the procedure well. Please note that the pharyngeal tube reconstruction is performed over a 24-Italian esophageal bougie to assure patency of the anastomoses and the bougie is removed at the end of the procedure. There is no significant tension on the closure of the neck. The neck is maintained in neutral. The audible Doppler flow signals are heard throughout the entirety of the procedure. Patient is transferred to the ICU directly where recovery is performed, having tolerated the procedure well. It should be noted as well that throughout the procedure sequential compression stockings and ROSALINO hose had been in use and a Sumner catheter was in place. JAIME OLIVARES M.D. [id number]
--- NOTE | 2017-02-21 09:44 | PN ---
Progress Note (short form) - Note Progress Note: ANESTHESIOLOGY POST-OP CHECK 56M s/p total laryngectomy, bilateral radical neck dissection and flap reconstruction under general anesthesia. POD #1. Pt sedated and intubated through tracheostoma. No acute events overnight. Vital Signs Temperature 98.7 F 02/21/17 06:00 Pulse Rate 96 H 02/21/17 08:00 Respiratory Rate 20 02/21/17 08:00 Blood Pressure 108/68 02/21/17 08:00 O2 Sat by Pulse Oximetry (%) 99 02/20/17 23:00 Active Medications Albuterol/Ipratropium (Duoneb -) 1 amp NEB QIDR [facility] Last Admin: 02/21/17 06:59 Dose: 1 amp Allopurinol (Zyloprim -) 100 mg PO DAILY [facility] Amlodipine Besylate (Norvasc -) 10 mg PO DAILY [facility] Buspirone HCl (Buspar -) 30 mg PO BID [facility] Last Admin: 02/20/17 22:56 Dose: Not Given Chlordiazepoxide HCl (Librium -) 15 mg PO Q6HPO PRN PRN Reason: WITHDRAWAL(CONT SUBST) Stop: 02/21/17 12:01 Cholecalciferol (Vitamin D3 -) 2,000 unit PO DAILY [facility] Folic Acid (Folic Acid -) 1 mg PO DAILY [facility] Hydromorphone HCl (Dilaudid Injection -) 1 mg IVPUSH Q4H PRN PRN Reason: PAIN Fentanyl 500 mcg/ Dextrose 100 mls @ 5 mls/hr IJ TITR PRN PRN Reason: 25 MCG/HR Last Admin: 02/20/17 23:00 Dose: 5 mls/hr Propofol (Diprivan -) 100 mls @ 8.369 mls/hr IVPB TITR JUNIOR; 15 MCG/KG/MIN PRN Reason: Protocol Last Admin: 02/20/17 23:58 Dose: 22.317 mls/hr Lactated Ringer's (Lactated Ringers Solution) 1,000 mls @ 100 mls/hr IV ASDIR [facility] Magnesium Sulfate (Magnesium Sulfate) 2 gm IVPB ONCE ONE Stop: 02/21/17 09:46 Multivitamins/Minerals/Vitamin C (Tab-A-Vit -) 1 tab PO DAILY [facility] Mupirocin (Bactroban Ointment (For Decolonization) -) 1 applic NS BID [facility] Stop: 02/25/17 21:59 Last Admin: 02/20/17 22:56 Dose: Not Given Quetiapine Fumarate (Seroquel Xr -) 300 mg PO ACDIN [facility] Thiamine HCl (Vitamin B1 -) 100 mg PO DAILY [facility] Gen: ETT in place, sedated, NAD No apparent anesthesia complications. Hemodynamically stable. Continue management as per primary team.
[2017-02-21] MEDS ORDERED: MAGNESIUM SULF 50% (8.12 MEQ/2 ML-1 GM VIAL) IVPB ONE (09:45)
[2017-02-21] MEDS: busPIRone HCL 10 MG TABLET (FP) PO SCH ×2 (09:50→21:30)
[2017-02-21] MEDS: amLODIPine BESYLATE 10 MG TABLET (FP) PO SCH (09:51)
[2017-02-21] MEDS: MULTIVITAMINS (DAILY MVI) TABLET (FP) PO SCH (09:51)
[2017-02-21] MEDS: FOLIC ACID 1 MG TABLET (FP) PO SCH (09:51)
[2017-02-21] MEDS: THIAMINE HCL 100 MG TABLET (FP) PO SCH (09:51)
[2017-02-21] MEDS: CHOLECALCIFEROL (VITAMIN D3) 1,000 UNIT TABLET (FP) PO SCH (09:51)
[2017-02-21] MEDS: ALLOPURINOL 100 MG TABLET (FP) PO SCH (09:52)
[2017-02-21] MEDS: MUPIROCIN 2% TOPICAL OINTMENT FOR DECOLONIZATION NS SCH ×2 (10:09→21:29)
--- NOTE | 2017-02-21 10:28 | OP ---
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 POSTOPERATIVE DIAGNOSIS: Left pyriform sinus squamous cell carcinoma. ANESTHESIA: General endotracheal. PROCEDURE: 1. Pharyngolaryngectomy. 2. Left modified radical neck dissection, levels I through V with sacrifice of internal jugular vein and sternocleidomastoid muscle. 3. Right modified radical neck dissection, levels II-A, III, and IV with preservation of internal jugular vein, sternocleidomastoid muscle, and accessory nerve. 4. Direct laryngoscopy. 5. Open gastrostomy. DESCRIPTION OF PROCEDURE: The patient was taken into the operating room, placed in a supine position, endotracheally intubated, prepped and draped in the usual sterile fashion for open gastrostomy. An upper midline incision was made and carried down through the subcutaneous tissues and fascia. No significant adhesions were found. The stomach was identified, grasped with Bristol clamps and retracted anteriorly. A double pursestring suture was placed in the anterior wall. A gastrostomy was made, and a gastrostomy tube was brought through the left upper quadrant abdominal wall and into the gastrotomy. The pursestring sutures were then tied and secured to the abdominal wall. The flange of the gastrostomy tube was then sewn to the abdominal wall with permanent sutures. The abdomen was then closed with running double-stranded No. 1 PDS sutures for fascia and demond for skin. Sterile dressings were placed. Drapes were removed. Eyes were protected. The table was turned 90 degrees. Tooth guard was placed. Laryngoscopy was performed, taking care to examine both tonsils carefully, and both were found to have no suspicious regions. These were also palpated, and no firm areas were identified. Laryngoscopy of the larynx and pharynx was then performed showing the left pyriform sinus tumor. The patient was then prepped and draped for the main procedure. A horizontal neck incision was made, carried down through subcutaneous tissues and platysma. A left-sided trifurcation incision was also made. Flap hooks were placed for exposure. The strap muscles were transected inferiorly. The right-sided thyroid lobe was dissected off of the tracheal wall and retracted laterally. The strap muscles were transected above the hyoid bone. The larynx was isolated from the surrounding tissues. A pharyngotomy was made just superior to the epiglottis. At this point, the pharyngotomy allowed for examination of the tumor. Mucosal cuts were then made with care to ensure an adequate margin around the tumor and to save any possible pharyngeal mucosa. The pharynx and larynx were then elevated off of the esophagus. The trachea was transected, and the endotracheal tube was switched to the lower trachea. In this way, the laryngopharyngectomy was performed, and the specimen was taken off the field. A gastrostomy tube was placed into the esophagus, and the stomach was suctioned. Several enlarged lymph nodes were seen in the left neck, and therefore, it was decided to resect the internal jugular vein and sternocleidomastoid muscle to ensure complete resection of all lymph disease. These 2 structures were transected. The internal jugular vein was tied and stitched above and below. The vagus nerve, accessory nerve, phrenic nerve, and brachial plexus were identified on the left side. Carotid artery was protected. All other lymph areolar tissue was reflected laterally. The thoracic duct was also identified and preserved. In this way, the left modified radical neck dissection levels I through V was performed. Note that the marginal mandibular branch of the facial nerve, the lingual nerve, and the hypoglossal nerve were also protected. The right sternocleidomastoid muscle was elevated off of the carotid artery and jugular vein. The vagus nerve, hypoglossal nerve, accessory nerve, and phrenic nerves were identified and preserved. The lymph areolar tissue from levels II-A, III, and IV was dissected off of the surrounding tissues including the jugular vein and removed. All neck levels on both sides were into various levels and sent to Pathology for examination. Hemostasis was achieved. A hole was then made in the lower skin flap. The trachea was then brought up to the hole, trimmed, and then sutured to the skin with interrupted 2-0 Vicryl sutures. Drains were placed bilaterally and sutured to the skin. At this point, Dr. Olivares and the plastic surgery team performed reconstruction with an anterolateral thigh free flap and split-thickness skin graft. Dr. Olivares will dictate that portion of the case. The patient remained stable throughout the entire procedure and was transferred to the recovery room and to the ICU. MARY GUERIN M.D. [id number]
--- NOTE | 2017-02-21 10:29 | PN ---
Progress Note (short form) - Note Progress Note: PULM/CCM Pt seen and examined in ICU 24HR: POD #1 after total laryngectomy, bilateral radical neck dissection and flap reconstruction under general anesthesia. Pt sedated and intubated through tracheostoma. No pressors. VS stable. Active Medications Albuterol/Ipratropium (Duoneb -) 1 amp NEB QIDR REPLACED BY [facility] Last Admin: 02/21/17 06:59 Dose: 1 amp Allopurinol (Zyloprim -) 100 mg PO DAILY [facility] Last Admin: 02/21/17 09:52 Dose: Not Given Amlodipine Besylate (Norvasc -) 10 mg PO DAILY [facility] Last Admin: 02/21/17 09:51 Dose: Not Given Buspirone HCl (Buspar -) 30 mg PO BID [facility] Last Admin: 02/21/17 09:50 Dose: Not Given Chlordiazepoxide HCl (Librium -) 15 mg PO Q6HPO PRN PRN Reason: WITHDRAWAL(CONT SUBST) Stop: 02/21/17 12:01 Cholecalciferol (Vitamin D3 -) 2,000 unit PO DAILY [facility] Last Admin: 02/21/17 09:51 Dose: Not Given Folic Acid (Folic Acid -) 1 mg PO DAILY [facility] Last Admin: 02/21/17 09:51 Dose: Not Given Hydromorphone HCl (Dilaudid Injection -) 1 mg IVPUSH Q4H PRN PRN Reason: PAIN Fentanyl 500 mcg/ Dextrose 100 mls @ 5 mls/hr IJ TITR PRN PRN Reason: 25 MCG/HR Last Titration: 02/21/17 09:00 Dose: 50 mcg/hr Propofol (Diprivan -) 100 mls @ 8.369 mls/hr IVPB TITR [facility]; 15 MCG/KG/MIN PRN Reason: Protocol Last Admin: 02/21/17 09:00 Dose: 22.317 mls/hr Lactated Ringer's (Lactated Ringers Solution) 1,000 mls @ 100 mls/hr IV ASDIR REPLACED BY [facility] Last Admin: 02/21/17 08:30 Dose: 100 mls/hr Multivitamins/Minerals/Vitamin C (Tab-A-Vit -) 1 tab PO DAILY [facility] Last Admin: 02/21/17 09:51 Dose: Not Given Mupirocin (Bactroban Ointment (For Decolonization) -) 1 applic NS BID [facility]PL[facility] Stop: 02/25/17 21:59 Last Admin: 02/21/17 10:09 Dose: 1 applic Quetiapine Fumarate (Seroquel Xr -) 300 mg PO ACDIN REPLACED BY [facility] Thiamine HCl (Vitamin B1 -) 100 mg PO DAILY [facility] Last Admin: 02/21/17 09:51 Dose: Not Given Vital Signs Temp 98.7 F 02/21/17 06:00 Pulse 96 H 02/21/17 08:00 Resp 20 02/21/17 09:00 BP 108/68 02/21/17 08:00 Pulse Ox 99 02/21/17 09:00 Intake & Output 02/20/17 02/20/17 02/21/17 11:59 23:59 11:59 Intake Total 7000 250 875 Output Total 2850 1505 1345 Balance 8540 -1255 -470 Intake: IV 7000 250 875 Lactated Ringers Solution 875 1,000 ml @ 125 mls/hr IV ASDIR REPLACED BY [facility] Rx#: [id number] Output: Chest Tube Drainage 10 Right Anterior Chest 10 Drainage 105 135 Right Neck 75 Left Neck 60 Urine 2550 1400 1200 Void 250 Sumner 1200 Estimated Blood Loss 300 Other: Voiding Method Indwelling Catheter Indwelling Catheter # Unmeasured Voids Void 1 CBCD WBC 10.2 K/mm3 (4.0-10.0) H 02/21/17 06:10 RBC 3.32 M/mm3 (4.00-5.60) L D 02/21/17 06:10 Hgb 11.0 GM/dL (11.7-16.9) L D 02/21/17 06:10 Hct 31.3 % (35.4-49) L D 02/21/17 06:10 MCV 94.3 fl (80-96) 02/21/17 06:10 MCHC 35.1 g/dl (32.0-35.9) 02/21/17 06:10 RDW 13.1 % (11.9-15.9) 02/21/17 06:10 Plt Count 206 K/MM3 (134-434) 02/21/17 06:10 MPV 9.8 fl (7.5-11.1) 02/21/17 06:10 CMP Sodium 139 mmol/L (136-145) 02/21/17 06:10 Potassium 4.3 mmol/L (3.5-5.1) 02/21/17 06:10 Chloride 104 mmol/L (98-107) 02/21/17 06:10 Carbon Dioxide 28 mmol/L (21-32) 02/21/17 06:10 Anion Gap 7 (8-16) L 02/21/17 06:10 BUN 11 mg/dL (7-18) D 02/21/17 06:10 Creatinine 0.9 mg/dL (0.7-1.3) 02/21/17 06:10 Creat Clearance w eGFR > 60 (>60) 02/17/17 05:00 Calcium 7.5 mg/dL (8.5-10.1) L 02/21/17 06:10 Total Bilirubin 0.4 mg/dL (0.2-1.0) 02/17/17 05:00 AST 39 U/L (15-37) H 02/17/17 05:00 ALT 36 U/L (12-78) 02/17/17 05:00 Alkaline Phosphatase 47 U/L (45-117) 02/17/17 05:00 Total Protein 6.4 g/dl (6.4-8.2) 02/17/17 05:00 Albumin 3.0 g/dl (3.4-5.0) L 02/17/17 05:00 Microbiology 02/11/17 10:15 Blood - Peripheral Venous Blood Culture - Final NO GROWTH AFTER 5 DAYS INCUBATION 02/11/17 10:15 Blood - Peripheral Venous Blood Culture - Final NO GROWTH AFTER 5 DAYS INCUBATION 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 -monitor ANNA output -vent support, wean to extubate -fentanyl/propofol for sedation lighten as able -can start trickle feeds and will consider restarting home asa tomorrow. Renny Couch [facility] [id number] Problem List - Problems (1) Alcohol dependence Code(s): F10.20 - ALCOHOL DEPENDENCE, UNCOMPLICATED Qualifiers: Substance use status: with intoxication Complication of substance- induced condition: with unspecified complication Qualified Code(s): F10.229 - Alcohol dependence with intoxication, unspecified; F10.229 - Alcohol dependence with intoxication, unspecified; F10.229 - Alcohol dependence with intoxication, unspecified (2) COPD (chronic obstructive pulmonary disease) Code(s): J44.9 - CHRONIC OBSTRUCTIVE PULMONARY DISEASE, UNSPECIFIED Qualifiers : COPD type: unspecified COPD Qualified Code(s): J44.9 - Chronic obstructive pulmonary disease, unspecified; J44.9 - Chronic obstructive pulmonary disease, unspecified; J44.9 - Chronic obstructive pulmonary disease, unspecified; J44.9 - Chronic obstructive pulmonary disease, unspecified (3) Lesion of tongue Code(s): K14.8 - OTHER DISEASES OF TONGUE (4) Lung cancer Code(s): C34.90 - MALIGNANT NEOPLASM OF UNSP PART OF UNSP BRONCHUS OR LUNG Qualifiers: Laterality: unspecified laterality Lung location: overlapping sites Qualified Code(s): C34.80 - Malignant neoplasm of overlapping sites of unspecified bronchus and lung; C34.80 - Malignant neoplasm of overlapping sites of unspecified bronchus and lung; C34.80 - Malignant neoplasm of overlapping sites of unspecified bronchus and lung; C34.80 - Malignant neoplasm of overlapping sites of unspecified bronchus and lung (5) Metastatic disease Code(s): C79.9 - SECONDARY MALIGNANT NEOPLASM OF UNSPECIFIED SITE
[2017-02-21] MEDS ORDERED: PROPOFOL 100 ML ONE (11:47)
[2017-02-21] MEDS ORDERED: HYDROmorphone HCL CARPU-JECT 1 MG/1 ML DISP.SYRIN IVPB PRN (13:13)
[2017-02-21] MEDS: HEPARIN NA (PORCINE) 5,000 UNITS/ML 1ML VIAL SQ SCH ×2 (15:00→21:29)
[2017-02-21] MEDS ORDERED: HEPARIN NA (PORCINE) 5,000 UNITS/ML 1ML VIAL SQ SCH (20:45)
[2017-02-21] MEDS: MIDAZOLAM 100 MG in SODIUM CHLORIDE 100 ML IVPB SCH (21:29)
[2017-02-21] MEDS: MIDAZOLAM HCL 2 MG/2 ML SINGLE DOSE VIAL IVPUSH PRN (21:30)
[2017-02-22] MEDS: HEPARIN NA (PORCINE) 5,000 UNITS/ML 1ML VIAL SQ SCH ×3 (06:12→22:12)
[2017-02-22 06:21] LABS: MCH 32.3 pg (25.7-33.7); MCHC 33.7 g/dl (32.0-35.9); MEAN PLT VOLUME 10.4 fl (7.5-11.1); PLATELET COUNT 170 K/MM3 (134-434); RDW 13.5 % (11.9-15.9); WHITE BLOOD COUNT 9.5 K/mm3 (4.0-10.0)
[2017-02-22] MEDS: ALBUTEROL SO4 2.5/IPRATROPIUM 0.5 INH SOL 3 ML VIAL.NEB. NEB SCH ×4 (06:21→23:17)
[2017-02-22 06:48] LABS: ANION GAP 8 (8-16); CALCIUM 7.3 mg/dL (8.5-10.1); CO2 27 mmol/L (21-32); CREATININE 1.4 mg/dL (0.7-1.3); GLUCOSE,RANDOM 109 mg/dL (74-106)
--- NOTE | 2017-02-22 08:51 | PN ---
Progress Note (short form) - Note Progress Note: Subjective:no events over night Objective: Vital Signs: Last Vital Signs Temp Pulse Resp BP Pulse Ox 98.6 F 90 15 134/85 95 02/22/17 10:00 02/22/17 12:00 02/22/17 14:59 02/22/17 12:00 02/22/17 10:46 Laboratory Results - last 24 hr 02/21/17 02/21/17 02/21/17 14:39 18:41 23:47 WBC RBC Hgb Hct MCV MCH MCHC RDW Plt Count MPV Sodium Potassium Chloride Carbon Dioxide Anion Gap BUN Creatinine POC Glucometer 162.15729 151.28510 149.61855 Random Glucose Calcium Phosphorus Magnesium 02/22/17 02/22/17 02/22/17 05:20 05:20 05:28 WBC 9.5 RBC 3.00 L Hgb 9.7 L D Hct 28.8 L MCV 96.0 MCH 32.3 MCHC 33.7 RDW 13.5 Plt Count 170 MPV 10.4 Sodium 142 Potassium 3.8 Chloride 107 Carbon Dioxide 27 Anion Gap 8 BUN 17 D Creatinine 1.4 H D POC Glucometer 141.98324 Random Glucose 109 H Calcium 7.3 L Phosphorus 7.1 H Magnesium 2.5 H D Physical Exam: sedated, resists eye opening .round equal pupils,vented through neck CV: RRR Lungs : clear anteriorly Ext: surgical dressings on anterior thighs, surrounding edema improved . DP 2+ b /l ABd :soft, ND, absent BS. PEG ASSESSMENT AND PLAN: 56 y/o gentleman with h/o Nicotine dependence, HTn, CAD s/p Stenting , hyperlipidemia and recently diagnosed R lung adenocarcinoma who presented for pulmonary resection. 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 HB dropped . increase IVF . 5- Acute blood loss anemia. a component of dilution as well monitor . No indication for transfusion yet 6- CAD : cont ASpirin through PEG DVT px with heparin Visit type - Emergency Visit Emergency Visit: Yes ED Registration Date: 02/11/17 Care time: The patient presented to the Emergency Department on the above date and was hospitalized for further evaluation of their emergent condition. - New Patient This patient is new to me today: No - Critical Care Critical Care patient: Yes Total Critical Care Time (in minutes): 35 Critical Care Statement: The care of this patient involved high complexity decision making to prevent further life threatening deterioration of the patient 's condition and/or to evaluate & treat vital organ system(s) failure or risk of failure.
[2017-02-22 10:00] LABS: MAGNESIUM 2.5 mg/dL (1.8-2.4); PHOSPHOROUS 7.1 mg/dL (2.5-4.9)
[2017-02-22] MEDS ORDERED: ASPIRIN COATED 81 MG TABLET.EC PO SCH (10:00)
[2017-02-22] MEDS ORDERED: ASPIRIN 81 MG CHEWABLE TABLETS PO SCH (10:00)
--- NOTE | 2017-02-22 10:38 | PN ---
Progress Note (short form) - Note Progress Note: POD 2 post L ALT flap Excellent signals, all donor sites CDI Incision lines CDI, ANNA's serous fluid only VSSAF CR bump to 1.4, hydrating at 100/hr LR, UOP adequate Started ASA and SQ heparin Will discuss with ICU team treatment of CR bump. From plastic surgical standpoint, continue flap monitoring, no additional changes
[2017-02-22] MEDS: busPIRone HCL 10 MG TABLET (FP) PO SCH (10:57)
[2017-02-22] MEDS: FOLIC ACID 1 MG TABLET (FP) PO SCH (10:58)
[2017-02-22] MEDS: amLODIPine BESYLATE 10 MG TABLET (FP) PO SCH (10:58)
[2017-02-22] MEDS: MULTIVITAMINS (DAILY MVI) TABLET (FP) PO SCH (10:59)
[2017-02-22] MEDS: ALLOPURINOL 100 MG TABLET (FP) PO SCH (10:59)
[2017-02-22] MEDS: LACTATED RINGERS SOLUTION 1,000 ML IV SCH ×3 (11:00→22:00)
[2017-02-22] MEDS: MIDAZOLAM 100 MG in SODIUM CHLORIDE 100 ML IVPB SCH ×2 (11:03→20:00)
[2017-02-22] MEDS: MUPIROCIN 2% TOPICAL OINTMENT FOR DECOLONIZATION NS SCH ×2 (11:04→22:12)
[2017-02-22] MEDS: FENTANYL INJECTION 500 MCG in DEXTROSE 5%-WATER - 90 ML IJ PRN (11:04)
[2017-02-22] MEDS ORDERED: ASPIRIN 81 MG CHEWABLE TABLETS ONE (12:34)
[2017-02-22] MEDS: THIAMINE HCL 100 MG TABLET (FP) PO SCH (12:37)
[2017-02-22] MEDS: CHOLECALCIFEROL (VITAMIN D3) 1,000 UNIT TABLET (FP) PO SCH (12:37)
[2017-02-22] MEDS: ASPIRIN 81 MG CHEWABLE TABLETS PEG SCH (12:38)
--- NOTE | 2017-02-22 13:00 | PN ---
Progress Note (short form) - Note Progress Note: PULM / CCM -POD#2 s/p L ALT flap Pt Seen & Examined in the ICU. Incision lines CDI, JPs draining scanty serous fluid, excellent signals, armored/reinforced ETT in place through tracheostoma. Pt is sedated on the Vent in NAD. ACTIVE MEDs Acetaminophen (Tylenol Oral Solution -) 650 mg PO Q6H PRN PRN Reason: FEVER OR PAIN Albuterol/Ipratropium (Duoneb -) 1 amp NEB QIDR [facility] Last Admin: 02/22/17 06:21 Dose: 1 amp Allopurinol (Zyloprim -) 100 mg PO DAILY [facility] Last Admin: 02/22/17 10:59 Dose: Not Given Amlodipine Besylate (Norvasc -) 10 mg PO DAILY [facility] Last Admin: 02/22/17 10:58 Dose: Not Given Aspirin (Asa -) 81 mg PEG DAILY [facility] Last Admin: 02/22/17 12:38 Dose: 81 mg Buspirone HCl (Buspar -) 30 mg PO BID [facility] Last Admin: 02/22/17 10:57 Dose: Not Given Chlordiazepoxide HCl (Librium -) 15 mg PO Q6HPO PRN PRN Reason: WITHDRAWAL(CONT SUBST) Stop: 02/21/17 12:01 Cholecalciferol (Vitamin D3 -) 2,000 unit PO DAILY [facility] Last Admin: 02/22/17 12:37 Dose: Not Given Folic Acid (Folic Acid -) 1 mg PO DAILY [facility] Last Admin: 02/22/17 10:58 Dose: Not Given Heparin Sodium (Porcine) (Heparin -) 5,000 unit SQ TID [facility] Last Admin: 02/22/17 06:12 Dose: 5,000 unit Hydromorphone HCl (Dilaudid Injection -) 1 mg IVPUSH Q4H PRN PRN Reason: PAIN Fentanyl 500 mcg/ Dextrose 100 mls @ 5 mls/hr IJ TITR PRN PRN Reason: 25 MCG/HR Last Admin: 02/22/17 11:04 Dose: 15 mls/hr Midazolam HCl 100 mg/ Sodium (Chloride) 100 mls @ 2 mls/hr IVPB TITR JUNIOR; 2 MG/ HR PRN Reason: Protocol Last Admin: 02/22/17 11:03 Dose: 10 mls/hr Lactated Ringer's (Lactated Ringers Solution) 1,000 mls @ 125 mls/hr IV ASDIR [facility] Last Admin: 02/22/17 11:00 Dose: 125 mls/hr Midazolam HCl (Versed -) 2 mg IVPUSH Q1H PRN PRN Reason: AGITATION Last Admin: 02/21/17 21:30 Dose: 2 mg Multivitamins/Minerals/Vitamin C (Tab-A-Vit -) 1 tab PO DAILY [facility] Last Admin: 02/22/17 10:59 Dose: Not Given Mupirocin (Bactroban Ointment (For Decolonization) -) 1 applic NS BID [facility] Stop: 02/25/17 21:59 Last Admin: 02/22/17 11:04 Dose: 1 applic Quetiapine Fumarate (Seroquel Xr -) 300 mg PO ACDIN [facility] Last Admin: 02/21/17 16:52 Dose: Not Given Thiamine HCl (Vitamin B1 -) 100 mg PO DAILY [facility] Last Admin: 02/22/17 12:37 Dose: Not Given V/S Period Temp Pulse Resp BP Sys/Clay Pulse Ox Last 24 Hr 98.1 F-100.6 F 81-98 13-20 110-145/73-85 95-100 I's & O's 02/19/17 02/20/17 02/21/17 02/22/17 23:59 23:59 23:59 22:59 Intake Total 800 7250 3244.2 390 Output Total 900 4355 3420 745 Balance -100 2895 -175.8 -355 Weight 104.5 kg GEN: Well nourished appearing 56 y/o man sedated in NAD on the Vent HEENT: PERRL, an-icteric, MMM, JPs draining scanty serous fluid, incision lines for total laryngectomy w/ bilateral radical neck dissection and flap reconstruction CDI. Reinforced ETT in place through tracheostoma. PULM: R CT --> LWS, scanty serosang drainage, L/S CTAB CV: nml S1 S2, RR, unable to appreciate any G/M/R ABD: + BS, S/S N/T N/D X4Q EXT: LE B/L donor sites CDI, + Pulses CBC, BMP 02/22/17 05:20 02/22/17 05:20 Microbiology 02/11/17 10:15 Blood - Peripheral Venous Blood Culture - Final NO GROWTH AFTER 5 DAYS INCUBATION 02/11/17 10:15 Blood - Peripheral Venous Blood Culture - Final NO GROWTH AFTER 5 DAYS INCUBATION ASSESS: -R lung adenocarcinoma s/p wedge resection and CT -Laryngeal SCC s/p laryngectomy w/ flap reconstruction PLAN: -Cont vent support -Nebs -Dilaudid pushes for Post-Op pain -Begin slow sedation wean -Monitor art doppler--> page surgery for ANY loss of flow -monitor ANNA outputs -Cont R CT --> LWS -Strict I's & O's -Montior BUN/Cr -Replete e-lytes prn -IVFs for JOSE & dehydration -Restart home dose ASA -Start trickle feeds [facility] ICU [id number] PULM/CCM
[2017-02-22] MEDS ORDERED: PROPOFOL 100 ML ONE (21:58)
[2017-02-22] MEDS ORDERED: PROPOFOL 100 ML IVPB SCH (23:30)
[2017-02-23] MEDS ORDERED: HEMOQUE TEST 1 EACH EACH ONE (00:09)
[2017-02-23 04:43] LABS: ARTERIAL BLD GAS O2 SATURATION 99.3 % (90-98.9); ARTERIAL BLOOD GAS BASE EXCESS 1.8 meq/l (-2-2); ARTERIAL BLOOD GAS HCO3 26.9 meq/L (22-26); ARTERIAL BLOOD GAS pH 7.37 (7.35-7.45)
[2017-02-23 05:02] LABS: ART PUNCT SITE ARTERIAL LINE; PT. ON O2? YES
[2017-02-23 05:13] LABS: LPM/O2% 50%; TYPE OF O2 VENT
[2017-02-23 05:15] LABS: VENT RATE 12; VT/PRESS 500
[2017-02-23] MEDS: HEPARIN NA (PORCINE) 5,000 UNITS/ML 1ML VIAL SQ SCH ×3 (05:44→21:54)
[2017-02-23] MEDS: ALBUTEROL SO4 2.5/IPRATROPIUM 0.5 INH SOL 3 ML VIAL.NEB. NEB SCH ×4 (05:45→23:34)
--- NOTE | 2017-02-23 06:28 | PROC ---
Procedure Note Procedure: [facility] ICU PULM CRITICAL CARE EARLY AM EYE PHYSICIST NUCLEAR EXTUBATION NOTE: Iván Downs 7.37/48/139 on AC/VC 12/500/50%/+5 Fent @ 75ug/Hr & Versed @ 12mg/Hr. O/N: -Versed weaned down & replaced w/ Prop for Quick OFF capability. -Fent weaned down from 50 --> 25ug/Hr. -Notice pt Sats < 90% on ANY FiO2 < 30%. -Sats in the mid 90's w/ 50% FiO2 or more. 0500HRS: -Prop Turned Off -Pt following simple commands -Notice pt very uncomfortable on ANY Fet < 50ug/Hr but no depression in Resp Drive -Thus, Fent Left @ 50 - 75ug/Hr -Pt Comfortable on high PS -Passing SBTs @ 5/5 -Thorough deep suction clean out. -@ 0600Hrs hitch knot severed & latch down suture removed. -Cuff dumped & reinforced ETT removed from Tracheo-stoma. -Pt Placed on 50% humidified FiO2 via TM. -Pt comfortable, breathing easy. -Tracheo-stoma looks healthy & patent. PLAN: -Would leave pt on Fent gtt -Consider REMNANT SORTER -Standard tracheo-stoma care Transfer pt to Med-Surg for continued management. PAT. ACNP-BC [facility] ICU PULM/CCM [id number]
[2017-02-23 07:19] LABS: BASO % 0.4 % (0-2.0); EOS % 6.4 % (0-4.5); MCH 31.7 pg (25.7-33.7); MCHC 33.1 g/dl (32.0-35.9); MEAN CELL VOLUME 95.7 fl (80-96); NEUT % 74.4 % (42.8-82.8); PLATELET COUNT 187 K/MM3 (134-434); RDW 13.3 % (11.9-15.9); WHITE BLOOD COUNT 9.8 K/mm3 (4.0-10.0)
[2017-02-23 08:27] LABS: ANION GAP 8 (8-16); CALCIUM 7.9 mg/dL (8.5-10.1); CO2 28 mmol/L (21-32); CREATININE 1.2 mg/dL (0.7-1.3); GLUCOSE,RANDOM 123 mg/dL (74-106); MAGNESIUM 2.7 mg/dL (1.8-2.4); PHOSPHOROUS 5.1 mg/dL (2.5-4.9)
[2017-02-23] MEDS ORDERED: DEXTROSE 5%-WATER - 1,000 ML IV SCH ×2 (09:15→10:52)
--- NOTE | 2017-02-23 09:21 | PN ---
Progress Note (short form) - Note Progress Note: Extubated, awake and alert, complaining of some pain, somewhat agitated. Wounds CDI, tracheostomy suture line intact with patent airway, low amount of secretions, ANNA drains serous Abdomen soft and nontender, G-tube intact, wound CDI Chest tube and rader intact. Labs creatinine improved to 1.2, otherwise unremarkable. Progressing well post-op. Likely will need ongoing benzodiazepines for withdrawal prevention. Fentanyl drip as needed. Continue SQ heparin and aspirin. Increased G-tube feeds to goal. OOB to chair when ready. Suction secretions from the tracheostome frequently. Observe flap as per plastic surgery. Call if any questions [phone]
[2017-02-23] MEDS: HYDROmorphone HCL CARPU-JECT 1 MG/1 ML DISP.SYRIN IVPUSH PRN ×4 (09:38→23:13)
[2017-02-23] MEDS: ASPIRIN 81 MG CHEWABLE TABLETS PEG SCH (09:39)
[2017-02-23] MEDS: MULTIVITAMINS (DAILY MVI) TABLET (FP) PO SCH (09:39)
[2017-02-23] MEDS: FOLIC ACID 1 MG TABLET (FP) PO SCH (09:40)
[2017-02-23] MEDS: ALLOPURINOL 100 MG TABLET (FP) PEG SCH (09:40)
[2017-02-23] MEDS: MUPIROCIN 2% TOPICAL OINTMENT FOR DECOLONIZATION NS SCH ×2 (09:41→21:54)
--- NOTE | 2017-02-23 10:09 | PROC ---
Procedure Note Procedure: At Dr. Gilmore's request --> remove Chest tube Right chest tube removed. Occlusive dressing applied. Tolerated procedure well. STAT CXR ordered
[2017-02-23] MEDS: FENTANYL INJECTION 500 MCG in DEXTROSE 5%-WATER - 90 ML IJ PRN (10:12)
--- NOTE | 2017-02-23 13:13 | PN ---
Teaching Attending Note Name of Resident: Mallory Ma ATTENDING PHYSICIAN STATEMENT I saw and evaluated the patient. I reviewed the resident's note and discussed the case with the resident. I agree with the resident's findings and plan as documented. SUBJECTIVE: Pt seen and examined in the ICU. Lethargic on fentanyl gtt. On trach collar. Low grade temps overnight. Chest tube removed this AM. OBJECTIVE: Last Vital Signs Temp Pulse Resp BP Pulse Ox 99.6 F 91 H 13 125/72 93 L 02/23/17 10:00 02/23/17 10:16 02/23/17 10:00 02/23/17 10:00 02/23/17 10:16 Intake & Output 02/21/17 02/22/17 02/22/17 02/23/17 00:59 00:59 23:59 23:59 Intake Total 1180.5 Output Total 1170 Balance 10.5 Weight 229 lb 14.4 oz Gen: lethargic but arousable Heart: RRR Lung: scattered rhonchi Abd: soft, nontender Ext: no edema, dressings dry CBC, BMP 02/23/17 06:25 02/23/17 06:25 Active Medications Acetaminophen (Tylenol Oral Solution -) 650 mg PO Q6H PRN PRN Reason: FEVER OR PAIN Albuterol/Ipratropium (Duoneb -) 1 amp NEB QIDR [facility] Last Admin: 02/23/17 11:03 Dose: 1 amp Allopurinol (Zyloprim -) 100 mg PEG DAILY [facility] Last Admin: 02/23/17 09:40 Dose: 100 mg Aspirin (Asa -) 81 mg PEG DAILY [facility] Last Admin: 02/23/17 09:39 Dose: 81 mg Folic Acid (Folic Acid -) 1 mg PO DAILY [facility] Last Admin: 02/23/17 09:40 Dose: 1 mg Heparin Sodium (Porcine) (Heparin -) 5,000 unit SQ TID [facility] Last Admin: 02/23/17 05:44 Dose: 5,000 unit Hydromorphone HCl (Dilaudid Injection -) 1 mg IVPUSH Q4H PRN PRN Reason: PAIN Last Admin: 02/23/17 09:38 Dose: 1 mg Hydromorphone HCl (Dilaudid Injection -) 1 mg IVPUSH ONCE ONE Stop: 02/23/17 13:03 Fentanyl 500 mcg/ Dextrose 100 mls @ 5 mls/hr IJ TITR PRN PRN Reason: 25 MCG/HR Last Admin: 02/23/17 10:12 Dose: 15 mls/hr Midazolam HCl 100 mg/ Sodium (Chloride) 100 mls @ 2 mls/hr IVPB TITR [facility]UNIOR; 2 MG/ HR PRN Reason: Protocol Last Titration: 02/23/17 05:00 Dose: 0 mg/hr Propofol (Diprivan -) 100 mls @ 6.27 mls/hr IVPB TITR [facility]UNIOR; 10 MCG/KG/MIN PRN Reason: Protocol Last Titration: 02/23/17 05:00 Dose: 0 mcg/kg/min Dextrose (D5w -) 1,000 mls @ 83 mls/hr IV ASDIR [facility] Stop: 02/23/17 21:18 Last Admin: 02/23/17 10:52 Dose: 83 mls/hr Midazolam HCl (Versed -) 2 mg IVPUSH Q1H PRN PRN Reason: AGITATION Last Admin: 02/21/17 21:30 Dose: 2 mg Multivitamins/Minerals/Vitamin C (Tab-A-Vit -) 1 tab PO DAILY [facility] Last Admin: 02/23/17 09:39 Dose: 1 tab Mupirocin (Bactroban Ointment (For Decolonization) -) 1 applic NS BID [facility] Stop: 02/25/17 21:59 Last Admin: 02/23/17 09:41 Dose: 1 applic Quetiapine Fumarate (Seroquel Xr -) 300 mg PO ACDIN [facility] Last Admin: 02/22/17 20:13 Dose: Not Given ASSESSMENT AND PLAN: NSCLC - Adenocarcinoma s/p R VATS/Wedge Resection/CT placement now removed 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
[2017-02-23] MEDS ORDERED: HYDROmorphone HCL CARPU-JECT 1 MG/1 ML DISP.SYRIN IVPUSH ONE ×2 (13:30→18:35)
--- NOTE | 2017-02-23 14:59 | PN ---
Physical Exam: SUBJECTIVE: Patient seen and examined at bedside. -s/p laryngectomy (PO Day 3) -Pt extubated at 6AM this morning -On IV bolus pain control w/morphine -Currently on trach collar Fi02 50% -Chest tube removed this AM -Followed by Dr. Bledsoe OBJECTIVE: Vital Signs Period Temp Pulse Resp BP Sys/Clay Pulse Ox Last 24 Hr 99.3 F-100.5 F 78-107 12-20 119-162/65-85 92-98 GENERAL: The patient is awake and lethargic, trying to climb out of bed EYES: PERRL, extraocular movements intact, sclera anicteric, conjunctiva clear. NECK: surgical incisions intact, drains intact LUNGS: rhonchi appreciated b/l HEART: Regular rate and rhythm, S1, S2 without murmur, rub or gallop. ABDOMEN: Soft, nontender, nondistended, normoactive bowel sounds, no guarding, no rebound EXTREMITIES: 2+ posterior tibial pulses, warm, well-perfused, no edema. NEUROLOGICAL: difficult to assess as pt lethargic Laboratory Results - last 24 hr 02/20/17 02/22/17 02/22/17 07:00 10:36 17:02 WBC RBC Hgb Hct MCV MCH MCHC RDW Plt Count MPV Neutrophils % Lymphocytes % Monocytes % Eosinophils % Basophils % Puncture Site ABG pH ABG pCO2 at Pt Temp ABG pO2 at Pt Temp ABG HCO3 ABG O2 Sat (Measured) ABG O2 Content ABG Base Excess Angel Test O2 Delivery Device Oxygen Flow Rate Vent Mode Vent Rate PEEP Pressure Support Vent Sodium Potassium Chloride Carbon Dioxide Anion Gap BUN Creatinine POC Glucometer 167.23804 158.58155 Random Glucose Calcium Phosphorus Magnesium Blood Type O POSITIVE Antibody Screen Negative Crossmatch See Detail 02/23/17 02/23/17 02/23/17 00:12 03:48 06:25 WBC 9.8 RBC 3.06 L Hgb 9.7 L Hct 29.3 L MCV 95.7 MCH 31.7 MCHC 33.1 RDW 13.3 Plt Count 187 MPV 9.0 D Neutrophils % 74.4 Lymphocytes % 8.5 D Monocytes % 10.3 H Eosinophils % 6.4 H D Basophils % 0.4 Puncture Site Arterial line ABG pH 7.37 ABG pCO2 at Pt Temp 47.8 H ABG pO2 at Pt Temp 139.0 H D ABG HCO3 26.9 H ABG O2 Sat (Measured) 99.3 H ABG O2 Content 14.2 L ABG Base Excess 1.8 Angel Test Not applicable O2 Delivery Device Vent Oxygen Flow Rate 50% Vent Mode A/c Vent Rate 12 PEEP 5.0 Pressure Support Vent 500 Sodium Potassium Chloride Carbon Dioxide Anion Gap BUN Creatinine POC Glucometer 134.34056 Random Glucose Calcium Phosphorus Magnesium Blood Type Antibody Screen Crossmatch 02/23/17 06:25 WBC RBC Hgb Hct MCV MCH MCHC RDW Plt Count MPV Neutrophils % Lymphocytes % Monocytes % Eosinophils % Basophils % Puncture Site ABG pH ABG pCO2 at Pt Temp ABG pO2 at Pt Temp ABG HCO3 ABG O2 Sat (Measured) ABG O2 Content ABG Base Excess Angel Test O2 Delivery Device Oxygen Flow Rate Vent Mode Vent Rate PEEP Pressure Support Vent Sodium 148 H Potassium 3.6 Chloride 112 H Carbon Dioxide 28 Anion Gap 8 BUN 17 Creatinine 1.2 POC Glucometer Random Glucose 123 H Calcium 7.9 L Phosphorus 5.1 H D Magnesium 2.7 H Blood Type Antibody Screen Crossmatch Active Medications Generic Name Dose Route Start Last Admin Trade Name Freq PRN Reason Stop Dose Admin Acetaminophen 650 mg 02/21/17 20:01 Tylenol Oral Solution - PO Q6H PRN FEVER OR PAIN Albuterol/Ipratropium 1 amp 02/21/17 00:00 02/23/17 11:03 Duoneb - NEB 1 amp QIDR [facility] Administration Allopurinol 100 mg 02/22/17 17:28 02/23/17 09:40 Zyloprim - PEG 100 mg DAILY [facility] Administration Aspirin 81 mg 02/23/17 10:00 02/23/17 09:39 Asa - PEG 81 mg DAILY [facility] Administration Folic Acid 1 mg 02/21/17 10:00 02/23/17 09:40 Folic Acid - PO 1 mg DAILY [facility] Administration Heparin Sodium (Porcine) 5,000 unit 02/21/17 14:00 02/23/17 13:14 Heparin - SQ 5,000 unit TID [facility] Administration Hydromorphone HCl 1 mg 02/21/17 13:14 02/23/17 13:09 Dilaudid Injection - IVPUSH 1 mg Q4H PRN Administration PAIN Fentanyl 500 mcg/ Dextrose 100 mls @ 5 mls/hr 02/20/17 20:15 02/23/17 10:12 IJ 15 mls/hr TITR PRN Administration 25 MCG/HR Midazolam HCl 100 mg/ Sodium 100 mls @ 2 mls/hr 02/21/17 20:45 02/23/17 05:00 Chloride IVPB 0 mg/hr TITR [facility]UNIOR Titration Protocol 2 MG/HR Propofol 100 mls @ 6.27 mls/hr 02/22/17 23:30 02/23/17 05:00 Diprivan - IVPB 0 mcg/kg/min TITR [facility] Titration Protocol 10 MCG/KG/MIN Dextrose 1,000 mls @ 83 mls/hr 02/23/17 10:52 02/23/17 10:52 D5w - IV 02/23/17 21:18 83 mls/hr ASDIR [facility] Administration Midazolam HCl 2 mg 02/21/17 20:34 02/21/17 21:30 Versed - IVPUSH 2 mg Q1H PRN Administration AGITATION Multivitamins/Minerals/Vitamin C 1 tab 02/21/17 10:00 02/23/17 09:39 Tab-A-Vit - PO 1 tab DAILY [facility] Administration Mupirocin 1 applic 02/20/17 22:00 02/23/17 09:41 Bactroban Ointment (For Decolonization) - NS 02/25/17 21:59 1 applic BID [facility] Administration Quetiapine Fumarate 300 mg 02/21/17 16:30 02/22/17 20:13 Seroquel Xr - PO Not Given ACDIN [facility] ASSESSMENT/PLAN: This is a 56 y/o M with h/o Nicotine dependence, HTN, CAD s/p Stenting , HLD and recently diagnosed R lung adenocarcinoma, who presented for pulmonary resection. 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 Pt managed in ICU post-op. Today is Day3. HEAD AND NECK #s/p laryngectomy (PO Day 3) -extubated at 6AM this morning -Pt's surgical incisions healing well, drains intact -Chest tube removed this AM -Will continue to follow drain output -Will continue to monitor LE doppler -Pain control: dilaudid 1mg IVP q4h PRN -Followed by Dr. Bledsoe RENAL #Hypernatremia -Elevated Na (148) this AM- d/c LR, started on D5W 83 mls/hr to correct -3.6 L free water deficit -Pt euvolemic -Will continue to f/u BMP PULM -incentive spirometry to prevent post-op atelectasis -Duonebs 1 amp QID, PEG tube DETOX -if pt experiences withdrawal sx, will start on librium or benzos PRN -currently, pt has been without sx for ~ two weeks -continue Folic acid, MTV PROPHYLAXIS DVT: Heparin 5000 U SQ TID F/E/N -currently on D5W -will follow electrolytes, especially Na -tube feeds have restarted DISPOSITION -Continued ICU management Visit type - Emergency Visit Emergency Visit: No - New Patient This patient is new to me today: No - Critical Care Critical Care patient: Yes Total Critical Care Time (in minutes): 42 Critical Care Statement: The care of this patient involved high complexity decision making to prevent further life threatening deterioration of the patient 's condition and/or to evaluate & treat vital organ system(s) failure or risk of failure.
--- NOTE | 2017-02-23 15:13 | PN ---
Progress Note (short form) - Note Progress Note: Thoracic Postop Tube removed. Lung expanded. OOB, ambulate per Dr. Bledsoe and Plastics team. Stage I lung cancer with locally advanced H/N cancer. F/U as outpatient.
--- NOTE | 2017-02-23 15:39 | PN ---
Progress Note (short form) - Note Progress Note: POD 3 Flap viable with good flow signals Donor sites CDI Cr improved to 1.2 More alert, Ok for OOB to chair
[2017-02-23] MEDS ORDERED: SODIUM CHLORIDE 1,000 ML IV SCH (16:15)
--- NOTE | 2017-02-23 16:18 | PN ---
Teaching Attending Note Name of Resident: Gloria Zaldivar ATTENDING PHYSICIAN STATEMENT I saw and evaluated the patient. I reviewed the resident's note and discussed the case with the resident. I agree with the resident's findings and plan as documented. SUBJECTIVE: extubated last night . OBJECTIVE: Seen at 9 am . looked in pain, not comfortable , trach mask on . on fentanyl gtt 100 /hr CV: RRR Lungs : clear anteriorly Ext: surgical dressings on anterior thighs, surrounding edema improved . DP 2+ b /l ABd :soft, ND, decreased BS. PEG ASSESSMENT AND PLAN: 56 y/o gentleman with h/o Nicotine dependence, HTn, CAD s/p Stenting , hyperlipidemia and recently diagnosed R lung adenocarcinoma who presented for pulmonary resection. 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 still on fentanyl gtt - switched to D5W by ICU team. change to NS 100 cc/hr - cont feeding - monitor electrolytes - cont fentanyl and PRN oipiods for pain 2-Lung cancer : s/p wedge resection s/p DC of CT . 3- HTN -was elevated this am , due to pain. now NL if needed can resume his home norvasc 4- JOSE: possibly due to volume depletion , but also possible transient hypotension in OR. HB dropped . increase IVF . 5- Acute blood loss anemia. a component of dilution as well monitor . No indication for transfusion 6- CAD : cont ASpirin through PEG DVT px with heparin Critical Care Total Critical Care Time (in minutes): 40 Critical Care Statement: The care of this patient involved high complexity decision making to prevent further life threatening deterioration of the patient 's condition and/or to evaluate & treat vital organ system(s) failure or risk of failure.
[2017-02-23] MEDS ORDERED: amLODIPine BESYLATE 10 MG TABLET (FP) PO SCH (16:45)
[2017-02-23] MEDS: amLODIPine BESYLATE 10 MG TABLET (FP) PEG SCH (17:21)
[2017-02-23] MEDS ORDERED: MIDAZOLAM HCL 2 MG/2 ML SINGLE DOSE VIAL ONE (18:47)
[2017-02-23] MEDS: MIDAZOLAM HCL 2 MG/2 ML SINGLE DOSE VIAL IVPUSH PRN (19:05)
[2017-02-23] MEDS ORDERED: FENTANYL INJECTION 500 MCG in DEXTROSE 5%-WATER - 90 ML IJ SCH (20:00)
[2017-02-23 20:40] LABS: ALBUMIN 1.9 g/dl (3.4-5.0); ALK PHOS 62 U/L (45-117); ANION GAP 9 (8-16); BILIRUBIN,TOTAL 0.3 mg/dL (0.2-1.0); CALCIUM 7.7 mg/dL (8.5-10.1); CO2 29 mmol/L (21-32); GLUCOSE,RANDOM 121 mg/dL (74-106); MAGNESIUM 2.4 mg/dL (1.8-2.4); SGOT/AST 21 U/L (15-37); SGPT/ALT 15 U/L (12-78); TOT PROT 5.5 g/dl (6.4-8.2)
[2017-02-23] MEDS: CIPROFLOXACIN 0.3% EYE DROPS 5 ML BOTTLE OD SCH (21:52)
[2017-02-23] MEDS: SODIUM CHLORIDE NASAL SPRAY 44 ML BOTTLE NS PRN (21:55)
[2017-02-23] MEDS ORDERED: DEXTROSE 5%-0.45% SALINE 1,000 ML IV SCH (22:00)
[2017-02-23] MEDS ORDERED: QUEtiapine FUMARATE 25 MG TABLET (FP) PO ONE (22:42)
--- NOTE | 2017-02-23 23:28 | PN ---
Physical Exam: SUBJECTIVE: Patient seen and examined. Pt extubated. OBJECTIVE: Vital Signs Period Temp Pulse Resp BP Sys/Clay Pulse Ox Last 24 Hr 99.3 F-100.5 F 78-115 12-27 119-201/65-111 92-97 GENERAL: The patient is awake, alert, looked in pain/uncomfortable (on fentanyl drip), trach mask in place. NECK: Incisions to neck with staple closure noted, CDI. LUNGS: Breath sounds equal, clear to auscultation bilaterally, no wheezes, no crackles, no accessory muscle use. HEART: Regular rate and rhythm, S1, S2 without murmur, rub or gallop. ABDOMEN: Soft, nondistended, G-tube in place. EXTREMITIES: Warm, well-perfused, no edema. Dressings to sheree anterior thighs noted. Laboratory Results - last 24 hr 02/20/17 02/22/17 02/22/17 07:00 10:36 17:02 WBC RBC Hgb Hct MCV MCH MCHC RDW Plt Count MPV Neutrophils % Lymphocytes % Monocytes % Eosinophils % Basophils % Puncture Site ABG pH ABG pCO2 at Pt Temp ABG pO2 at Pt Temp ABG HCO3 ABG O2 Sat (Measured) ABG O2 Content ABG Base Excess Angel Test O2 Delivery Device Oxygen Flow Rate Vent Mode Vent Rate PEEP Pressure Support Vent Sodium Potassium Chloride Carbon Dioxide Anion Gap BUN Creatinine Creat Clearance w eGFR POC Glucometer 167.11995 158.11336 Random Glucose Calcium Phosphorus Magnesium Total Bilirubin AST ALT Alkaline Phosphatase Total Protein Albumin Blood Type O POSITIVE Antibody Screen Negative Crossmatch See Detail 02/23/17 02/23/17 02/23/17 00:12 03:48 06:25 WBC 9.8 RBC 3.06 L Hgb 9.7 L Hct 29.3 L MCV 95.7 MCH 31.7 MCHC 33.1 RDW 13.3 Plt Count 187 MPV 9.0 D Neutrophils % 74.4 Lymphocytes % 8.5 D Monocytes % 10.3 H Eosinophils % 6.4 H D Basophils % 0.4 Puncture Site Arterial line ABG pH 7.37 ABG pCO2 at Pt Temp 47.8 H ABG pO2 at Pt Temp 139.0 H D ABG HCO3 26.9 H ABG O2 Sat (Measured) 99.3 H ABG O2 Content 14.2 L ABG Base Excess 1.8 Angel Test Not applicable O2 Delivery Device Vent Oxygen Flow Rate 50% Vent Mode A/c Vent Rate 12 PEEP 5.0 Pressure Support Vent 500 Sodium Potassium Chloride Carbon Dioxide Anion Gap BUN Creatinine Creat Clearance w eGFR POC Glucometer 134.31932 Random Glucose Calcium Phosphorus Magnesium Total Bilirubin AST ALT Alkaline Phosphatase Total Protein Albumin Blood Type Antibody Screen Crossmatch 02/23/17 02/23/17 02/23/17 06:25 19:50 22:07 WBC RBC Hgb Hct MCV MCH MCHC RDW Plt Count MPV Neutrophils % Lymphocytes % Monocytes % Eosinophils % Basophils % Puncture Site ABG pH ABG pCO2 at Pt Temp ABG pO2 at Pt Temp ABG HCO3 ABG O2 Sat (Measured) ABG O2 Content ABG Base Excess Angel Test O2 Delivery Device Oxygen Flow Rate Vent Mode Vent Rate PEEP Pressure Support Vent Sodium 148 H 149 H Potassium 3.6 3.5 Chloride 112 H 111 H Carbon Dioxide 28 29 Anion Gap 8 9 BUN 17 14 Creatinine 1.2 1.0 Creat Clearance w eGFR > 60 POC Glucometer 137.13316 Random Glucose 123 H 121 H Calcium 7.9 L 7.7 L Phosphorus 5.1 H D Magnesium 2.7 H 2.4 Total Bilirubin 0.3 D AST 21 D ALT 15 D Alkaline Phosphatase 62 D Total Protein 5.5 L Albumin 1.9 L D Blood Type Antibody Screen Crossmatch Active Medications Generic Name Dose Route Start Last Admin Trade Name Freq PRN Reason Stop Dose Admin Acetaminophen 650 mg 02/21/17 20:01 Tylenol Oral Solution - PO Q6H PRN FEVER OR PAIN Albuterol/Ipratropium 1 amp 02/21/17 00:00 02/23/17 17:11 Duoneb - NEB 1 amp QIDR JUNIOR Administration Allopurinol 100 mg 02/22/17 17:28 02/23/17 09:40 Zyloprim - PEG 100 mg DAILY JUNIOR Administration Amlodipine Besylate 10 mg 02/23/17 16:45 02/23/17 17:21 Norvasc - PEG 10 mg DAILY JUNIOR Administration Aspirin 81 mg 02/23/17 10:00 02/23/17 09:39 Asa - PEG 81 mg DAILY JUNIOR Administration Ciprofloxacin 1 drop 02/23/17 18:45 02/23/17 21:52 Ciloxan 0.3% Eye Drops - OD 1 drop DAILY JUNIOR Administration Folic Acid 1 mg 02/21/17 10:00 11/06/17 09:40 Folic Acid - PO 1 mg DAILY JUNIOR Administration Heparin Sodium (Porcine) 5,000 unit 02/21/17 14:00 02/23/17 21:54 Heparin - SQ 5,000 unit TID JUNIOR Administration Hydromorphone HCl 1 mg 02/21/17 13:14 02/23/17 17:37 Dilaudid Injection - IVPUSH 1 mg Q4H PRN Administration PAIN Dextrose/Sodium Chloride 1,000 mls @ 75 mls/hr 02/23/17 22:00 02/23/17 21:54 D5-1/2ns - IV 75 mls/hr ASDIR JUNIOR Administration Multivitamins/Minerals/Vitamin C 1 tab 02/21/17 10:00 02/23/17 09:39 Tab-A-Vit - PO 1 tab DAILY JUNIOR Administration Mupirocin 1 applic 02/20/17 22:00 02/23/17 21:54 Bactroban Ointment (For Decolonization) - NS 02/25/17 21:59 1 applic BID JUNIOR Administration Sodium Chloride 2 spray 02/23/17 18:40 02/23/17 21:55 [place] Nasal [place] - NS 2 spray BID PRN Administration NASAL CONGESTION IMAGIN02/23/17 CXR -> Right chest tube removed. Progressive bibasilar (R>L) increased density consistent with atelectasis or infiltrate. ASSESSMENT/PLAN: 56yo M with PMH of current smoker (6 cigarettes/day), Right lung CA, CAD with 2 stents, htn, hld, gout, presented with worsening cough and sputum production and admitted to med-surg in preparation for lung biopsy and possible lung surgery. 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 Gilmore as outpatient 3) CAD s/p 2 stents - resume ASA through G-tube 4) htn - elevated 2/2 pain - resume Norvasc 5) acute blood loss anemia - likely a component of dilution as well - Hgb stable x 2 days - continue to monitor 5) gout - continue Allopurinol 6) FEN - Fluids: D5-1/2NS @ 75 ml/hr - Electolytes: hypernatremia noted, continue IVFs and tube feeding, and continue to monitor. - Nutrition: Jevity 1.5 @ 30 ml/hr, plus 40 ml/hr water in addition to tube feeding 7) DVT prophylaxis - Heparin 5,000U SQ TID Visit type - Emergency Visit Emergency Visit: Yes ED Registration Date: 02/11/17 Care time: The patient presented to the Emergency Department on the above date and was hospitalized for further evaluation of their emergent condition. - New Patient This patient is new to me today: No - Critical Care Critical Care patient: Yes Total Critical Care Time (in minutes): 45 Critical Care Statement: The care of this patient involved high complexity decision making to prevent further life threatening deterioration of the patient 's condition and/or to evaluate & treat vital organ system(s) failure or risk of failure.
[2017-02-23] MEDS ORDERED: MIDAZOLAM HCL 2 MG/2 ML SINGLE DOSE VIAL IVPUSH PRN (23:33)
[2017-02-24] MEDS: HYDROmorphone HCL CARPU-JECT 1 MG/1 ML DISP.SYRIN IVPUSH PRN ×5 (02:00→23:05)
[2017-02-24] MEDS: HEPARIN NA (PORCINE) 5,000 UNITS/ML 1ML VIAL SQ SCH ×3 (05:27→22:33)
[2017-02-24] MEDS ORDERED: MIDAZOLAM HCL 2 MG/2 ML SINGLE DOSE VIAL IVPUSH PRN (05:33)
[2017-02-24] MEDS: ALBUTEROL SO4 2.5/IPRATROPIUM 0.5 INH SOL 3 ML VIAL.NEB. NEB SCH ×4 (06:30→23:01)
[2017-02-24 07:30] LABS: EOS % 4.5 % (0-4.5); MCH 32.4 pg (25.7-33.7); MCHC 34.2 g/dl (32.0-35.9); MEAN CELL VOLUME 94.7 fl (80-96); MEAN PLT VOLUME 9.3 fl (7.5-11.1); NEUT % 72.7 % (42.8-82.8); PLATELET COUNT 236 K/MM3 (134-434); RDW 13.3 % (11.9-15.9); WHITE BLOOD COUNT 9.5 K/mm3 (4.0-10.0)
[2017-02-24 07:58] LABS: ANION GAP 7 (8-16); CO2 31 mmol/L (21-32); GLUCOSE,RANDOM 148 mg/dL (74-106)
[2017-02-24] MEDS ORDERED: POTASSIUM CHLORIDE TABS 20 MEQ TABLET.ER (FP) PO ONE (08:29)
--- NOTE | 2017-02-24 08:37 | SURG ---
Surgery Learning Operations Specialist Note Learning Operations Specialist: Hermelindo Bhagat PA-C Date of Service: 02/20/17 Diagnosis: pharyngeal cancer Procedure: Total laryngectomy with left anterolateral thigh flap pharyngeal reconstruction , split thickness skin graft from right thigh to left thigh I was present for the entirety of the operative procedure. For further detail, please refer to operative report. Visit type - Case Type Case Type: ED Admission
--- NOTE | 2017-02-24 08:42 | PN ---
Progress Note (short form) - Note Progress Note: POD #4 Alert. Extubated yesterday morning. On blow-by O2 in front of trach and tolerating. On chelsy restraint. No acute events over past 24 hours per RN notes. Chest tube dc'd yesterday. Last Vital Signs Temp Pulse Resp BP Pulse Ox 98.2 F 92 H 16 167/90 97 02/24/17 06:00 02/24/17 06:00 02/24/17 06:00 02/24/17 06:00 02/24/17 06:00 CBC, BMP 02/24/17 05:28 02/24/17 05:28 ANNA OUTPUT 02/23/17 02/23/17 02/23/17 02/23/17 02/24/17 04:14 06:00 13:10 23:00 06:00 Left 50 5 5 10 20 Right 20 5 10 5 10 [place] 219 [id number] General: nad Neck: Topher intact. Flap viable. Good signal from doppler. JPx2 on bulb suction (output as above) : rader > 30mL/hr LE: Right thigh STSG covered with xeroform (looks good) Left anterolateral thigh clean/dry/intact SCDs bilat Problem List - Problems (1) Laryngeal cancer Assessment/Plan: POD #4 OOB to chair. Pain management prn. DVT ppx --> SQ heparin and aspirin. Increase G-tube feeds to goal. Suction secretions from the tracheostome frequently. Cont to monitor flap. Hypokalemic --> replete K (ordered) CBC, BMP in AM Cont rader until patient out of bed and ambulating Physical therapy Sign over patient's bed --> NOTHING TO BE ADMINISTERED ORALLY, GT ONLY
[2017-02-24] MEDS ORDERED: KCL 10 MEQ IVPB 100 ML IVPB SCH (09:15)
[2017-02-24] MEDS ORDERED: POTASSIUM CHLORIDE ORAL LIQUID 20 MEQ/15 ML PEG ONE ×2 (09:35→15:33)
[2017-02-24] MEDS ORDERED: SODIUM CHLORIDE 1,000 ML IV SCH ×2 (09:45→15:45)
[2017-02-24] MEDS: MULTIVITAMINS (DAILY MVI) TABLET (FP) PO SCH (10:20)
[2017-02-24] MEDS: FOLIC ACID 1 MG TABLET (FP) PO SCH (10:20)
[2017-02-24] MEDS: amLODIPine BESYLATE 10 MG TABLET (FP) PEG SCH (10:21)
[2017-02-24] MEDS: ASPIRIN 81 MG CHEWABLE TABLETS PEG SCH (10:22)
[2017-02-24] MEDS: MUPIROCIN 2% TOPICAL OINTMENT FOR DECOLONIZATION NS SCH ×2 (10:22→22:34)
[2017-02-24] MEDS: CIPROFLOXACIN 0.3% EYE DROPS 5 ML BOTTLE OD SCH (10:25)
[2017-02-24] MEDS: ALLOPURINOL 100 MG TABLET (FP) PEG SCH (10:32)
[2017-02-24] MEDS ORDERED: LORazepam 2 MG/ML SDV VIAL ONE ×2 (10:42→13:22)
[2017-02-24] MEDS ORDERED: SODIUM CHLORIDE 0.45%/POT 1,000 ML IV SCH (12:45)
--- NOTE | 2017-02-24 12:47 | PN ---
Teaching Attending Note Name of Resident: Mallory Ma ATTENDING PHYSICIAN STATEMENT I saw and evaluated the patient. I reviewed the resident's note and discussed the case with the resident. I agree with the resident's findings and plan as documented. SUBJECTIVE: Pt seen and examined in the ICU. Remains on trach collar. Intermittent episodes of agitation/confusion. OBJECTIVE: Last Vital Signs Temp Pulse Resp BP Pulse Ox 99.4 F 104 H 22 145/85 100 02/24/17 10:08 02/24/17 12:19 02/24/17 12:00 02/24/17 12:00 02/24/17 12:19 Intake & Output 02/22/17 02/22/17 02/23/17 02/24/17 00:59 23:59 23:59 23:59 Intake Total 2445.5 1310 Output Total 5150 1630 Balance -2704.5 -320 Weight 229 lb 14.4 oz 227 lb 14.4 oz Gen: confused but able to orient Heart: tachycardic, regular Lung: scattered rhonchi Abd: soft, nontender, +PEG Ext: no edema CBC, BMP 02/24/17 05:28 02/24/17 05:28 Active Medications Acetaminophen (Tylenol Oral Solution -) 650 mg PO Q6H PRN PRN Reason: FEVER OR PAIN Albuterol/Ipratropium (Duoneb -) 1 amp NEB QIDR PENDING SALE TO [facility] Last Admin: 02/24/17 12:18 Dose: 1 amp Allopurinol (Zyloprim -) 100 mg PEG DAILY PENDING SALE TO [facility] Last Admin: 02/24/17 10:32 Dose: 100 mg Amlodipine Besylate (Norvasc -) 10 mg PEG DAILY [facility]END[facility] Last Admin: 02/24/17 10:21 Dose: 10 mg Aspirin (Asa -) 81 mg PEG DAILY PENDING SALE TO [facility] Last Admin: 02/24/17 10:22 Dose: 81 mg Ciprofloxacin (Ciloxan 0.3% Eye Drops -) 1 drop OD DAILY PENDING SALE TO [facility] Last Admin: 02/24/17 10:25 Dose: 1 drop Folic Acid (Folic Acid -) 1 mg PO DAILY PENDING SALE TO [facility] Last Admin: 02/24/17 10:20 Dose: 1 mg Heparin Sodium (Porcine) (Heparin -) 5,000 unit SQ TID PENDING SALE TO [facility] Last Admin: 02/24/17 05:27 Dose: 5,000 unit Hydromorphone HCl (Dilaudid Injection -) 1 mg IVPUSH Q2H PRN PRN Reason: PAIN Stop: 02/24/17 23:02 Last Admin: 02/24/17 10:07 Dose: 1 mg Sodium Chloride (Normal Saline -) 1,000 mls @ 125 mls/hr IV ASDIR JUNIOR Last Admin: 02/24/17 10:09 Dose: 125 mls/hr Multivitamins/Minerals/Vitamin C (Tab-A-Vit -) 1 tab PO DAILY JUNIOR Last Admin: 02/24/17 10:20 Dose: 1 tab Mupirocin (Bactroban Ointment (For Decolonization) -) 1 applic NS BID JUNIOR Stop: 02/25/17 21:59 Last Admin: 02/24/17 10:22 Dose: 1 applic Sodium Chloride ([place] Nasal [place] -) 2 spray NS BID PRN PRN Reason: NASAL CONGESTION Last Admin: 02/23/17 21:55 Dose: 2 spray ASSESSMENT AND PLAN: NSCLC - Adenocarcinoma s/p R VATS/Wedge Resection/CT placement now removed 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 HTN CAD Alcohol Abuse - pain control - change IVF to 1/2NS, increase free water - incentive spirometry - monitor drainage - flap monitoring - enteral feeds - aspiration precautions - DVT prophylaxis - continue ICU monitoring critical care time spent in reviewing chart, evaluating patient and formulating plan 35 min
--- NOTE | 2017-02-24 15:21 | PN ---
Physical Exam: SUBJECTIVE: Patient seen and examined at bedside. 24 hr events -Overnight, pt agitated, with BP elevated into 190-210s systolic, HR 100-130 bpm. Received one dose seroquel -febrile at 11pm 100.5F Today -s/p laryngectomy PO Day 4 -Pt receiving dilaudid q2hrs, off fentanyl gtt -agitated this morning, received ativan -On trach collar 50% Fi02, sat well OBJECTIVE: Vital Signs Period Temp Pulse Resp BP Sys/Clay Pulse Ox Last 24 Hr 98.2 F-100.5 F 80-127 10 145-204/72-111 93-100 GENERAL: The patient is awake, alternating between in pain and lethargic. Scratching LLE HEAD: Normal with no signs of trauma. EYES: PERRL, extraocular movements intact, sclera anicteric, conjunctiva clear. NECK: Trachea midline, supple. Surgical incisions and drains intact. LUNGS: Breath sounds equal, clear to auscultation bilaterally, no wheezes, no crackles, no accessory muscle use. HEART: tachycardic rate and rhythm, S1, S2 without murmur, rub or gallop. ABDOMEN: Soft, nontender, nondistended, normoactive bowel sounds, no guarding, no rebound EXTREMITIES: wrapped lower extremities, no edema NEUROLOGICAL: apron man appear to be intact, however difficult to assess as pt is agitated Laboratory Results - last 24 hr 02/20/17 02/23/17 02/23/17 07:00 19:50 22:07 WBC RBC Hgb Hct MCV MCH MCHC RDW Plt Count MPV Neutrophils % Lymphocytes % Monocytes % Eosinophils % Basophils % Sodium 149 H Potassium 3.5 Chloride 111 H Carbon Dioxide 29 Anion Gap 9 BUN 14 Creatinine 1.0 Creat Clearance w eGFR > 60 POC Glucometer 137.45669 Random Glucose 121 H Calcium 7.7 L Magnesium 2.4 Total Bilirubin 0.3 D AST 21 D ALT 15 D Alkaline Phosphatase 62 D Total Protein 5.5 L Albumin 1.9 L D Blood Type O POSITIVE Antibody Screen Negative Crossmatch See Detail 02/24/17 02/24/17 02/24/17 05:28 05:28 13:40 WBC 9.5 RBC 3.27 L Hgb 10.6 L Hct 31.0 L MCV 94.7 MCH 32.4 MCHC 34.2 RDW 13.3 Plt Count 236 D MPV 9.3 Neutrophils % 72.7 Lymphocytes % 13.4 D Monocytes % 8.4 Eosinophils % 4.5 Basophils % 1.0 Sodium 147 H Potassium 3.1 L 3.1 L Chloride 109 H Carbon Dioxide 31 Anion Gap 7 L BUN 11 D Creatinine 1.0 Creat Clearance w eGFR POC Glucometer Random Glucose 148 H D Calcium 8.0 L Magnesium Total Bilirubin AST ALT Alkaline Phosphatase Total Protein Albumin Blood Type Antibody Screen Crossmatch Active Medications Generic Name Dose Route Start Last Admin Trade Name Freq PRN Reason Stop Dose Admin Acetaminophen 650 mg 02/21/17 20:01 Tylenol Oral Solution - PO Q6H PRN FEVER OR PAIN Albuterol/Ipratropium 1 amp 02/21/17 00:00 02/24/17 12:18 Duoneb - NEB 1 amp QIDR JUNIOR Administration Allopurinol 100 mg 02/22/17 17:28 02/24/17 10:32 Zyloprim - PEG 100 mg DAILY JUNIOR Administration Amlodipine Besylate 10 mg 02/23/17 16:45 02/24/17 10:21 Norvasc - PEG 10 mg DAILY JUNIOR Administration Aspirin 81 mg 02/23/17 10:00 02/24/17 10:22 Asa - PEG 81 mg DAILY JUNIOR Administration Ciprofloxacin 1 drop 02/23/17 18:45 02/24/17 10:25 Ciloxan 0.3% Eye Drops - OD 1 drop DAILY JUNIOR Administration Folic Acid 1 mg 02/21/17 10:00 02/24/17 10:20 Folic Acid - PO 1 mg DAILY JUNIOR Administration Heparin Sodium (Porcine) 5,000 unit 02/21/17 14:00 02/24/17 05:27 Heparin - SQ 5,000 unit TID JUNIOR Administration Hydromorphone HCl 1 mg 02/23/17 23:03 02/24/17 10:07 Dilaudid Injection - IVPUSH 02/24/17 23:02 1 mg Q2H PRN Administration PAIN Potassium Chloride/Sodium Chloride 1,000 mls @ 75 mls/hr 02/24/17 12:45 13:33 1/2ns+20meq Kcl IV 75 mls/hr ASDIR JUNIOR Administration Multivitamins/Minerals/Vitamin C 1 tab 02/21/17 10:00 02/24/17 10:20 Tab-A-Vit - PO 1 tab DAILY JUNIOR Administration Mupirocin 1 applic 02/20/17 22:00 02/24/17 10:22 Bactroban Ointment (For Decolonization) - NS 02/25/17 21:59 1 applic BID JUNIOR Administration Sodium Chloride 2 spray 02/23/17 18:40 02/23/17 21:55 [place] Nasal [place] - NS 2 spray BID PRN Administration NASAL CONGESTION ASSESSMENT/PLAN: This is a 56 y/o M with h/o Nicotine dependence, HTN, CAD s/p Stenting , HLD and recently diagnosed R lung adenocarcinoma, who presented for pulmonary resection. 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 Pt managed in ICU post-op. Today is Day4. HEAD AND NECK #s/p laryngectomy (PO Day 4) -extubated yesterday (02/23/17), on trach collar Fi02 50%, sat well -Pt's surgical incisions healing well, drains intact. ~30ml drainage from each -Chest tube removed (02/23/17) -Will continue to follow drain output -Will continue to monitor LE doppler -Pain control: dilaudid q2hr -Followed by Dr. Bledsoe RENAL #Hypernatremia -Elevated Na (147) this AM- was on D5W, now on 1/2NS +20 mEq KCl -3.6 L free water deficit -Pt euvolemic -Will continue to f/u BMP #Hypokalemia -Received KCl 40 mEq through PEG -K 3.1, 20 mEq KCl added to fluids PULM -incentive spirometry to prevent post-op atelectasis -Duonebs 1 amp QID DETOX -if pt experiences withdrawal sx, will start on librium or benzos PRN -currently, pt has been without sx for ~ two weeks -continue Folic acid, MTV PROPHYLAXIS DVT: Heparin 5000 U SQ TID F/E/N -currently on 1/2NS +20 mEq KCl to increase free water, correct hypokalemia -will follow electrolytes, especially Na, K -tube feeds have restarted DISPOSITION -Continued ICU management Visit type - Emergency Visit Emergency Visit: No - New Patient This patient is new to me today: No - Critical Care Critical Care patient: Yes Total Critical Care Time (in minutes): 42 Critical Care Statement: The care of this patient involved high complexity decision making to prevent further life threatening deterioration of the patient 's condition and/or to evaluate & treat vital organ system(s) failure or risk of failure.
--- NOTE | 2017-02-24 15:46 | PN ---
Physical Exam: SUBJECTIVE: Patient seen and examined. Pt is alert, chelsy restraint applied. Intermittent episodes of agitation/confusion. Chest tube D/Michael yesterday. No events overnight. OBJECTIVE: Vital Signs Period Temp Pulse Resp BP Sys/Clay Pulse Ox Last 24 Hr 98.2 F-100.5 F 80-127 10- 145-204/72-111 93-100 GENERAL: The patient is awake, alert, tolerating blow-by O2 in front of trach. NECK: Incisions to neck with staple closure noted. Topher intact. Flap viable. Good signal from doppler. ANNA drains x 2 draining serosanguinous fluid. LUNGS: Breath sounds equal, clear to anterior auscultation bilaterally, no wheezes, no crackles, no accessory muscle use. HEART: Regular rate and rhythm, S1, S2 without murmur, rub or gallop. ABDOMEN: Soft, nontender, nondistended, normoactive bowel sounds. G-tube in place. EXTREMITIES: Warm, well-perfused, no edema. Dressings to sheree anterolateral thighs intact. [place] restraints applied as pt sometimes pulls at dressings. [place] SCDs applied. Laboratory Results - last 24 hr 02/20/17 02/23/17 02/23/17 07:00 19:50 22:07 WBC RBC Hgb Hct MCV MCH MCHC RDW Plt Count MPV Neutrophils % Lymphocytes % Monocytes % Eosinophils % Basophils % Sodium 149 H Potassium 3.5 Chloride 111 H Carbon Dioxide 29 Anion Gap 9 BUN 14 Creatinine 1.0 Creat Clearance w eGFR > 60 POC Glucometer 137.82696 Random Glucose 121 H Calcium 7.7 L Magnesium 2.4 Total Bilirubin 0.3 D AST 21 D ALT 15 D Alkaline Phosphatase 62 D Total Protein 5.5 L Albumin 1.9 L D Blood Type O POSITIVE Antibody Screen Negative Crossmatch See Detail 02/24/17 02/24/17 05:28 05:28 WBC 9.5 RBC 3.27 L Hgb 10.6 L Hct 31.0 L MCV 94.7 MCH 32.4 MCHC 34.2 RDW 13.3 Plt Count 236 D MPV 9.3 Neutrophils % 72.7 Lymphocytes % 13.4 D Monocytes % 8.4 Eosinophils % 4.5 Basophils % 1.0 Sodium 147 H Potassium 3.1 L Chloride 109 H Carbon Dioxide 31 Anion Gap 7 L BUN 11 D Creatinine 1.0 Creat Clearance w eGFR POC Glucometer Random Glucose 148 H D Calcium 8.0 L Magnesium Total Bilirubin AST ALT Alkaline Phosphatase Total Protein Albumin Blood Type Antibody Screen Crossmatch Active Medications Generic Name Dose Route Start Last Admin Trade Name Swapnilq PRN Reason Stop Dose Admin Acetaminophen 650 mg 02/21/17 20:01 Tylenol Oral Solution - PO Q6H PRN FEVER OR PAIN Albuterol/Ipratropium 1 amp 02/21/17 00:00 02/24/17 12:18 Duoneb - NEB 1 amp QIDR JUNIOR Administration Allopurinol 100 mg 02/22/17 17:28 02/24/17 10:32 Zyloprim - PEG 100 mg DAILY JUNIOR Administration Amlodipine Besylate 10 mg 02/23/17 16:45 02/24/17 10:21 Norvasc - PEG 10 mg DAILY JUNIOR Administration Aspirin 81 mg 02/23/17 10:00 02/24/17 10:22 Asa - PEG 81 mg DAILY JUNIOR Administration Ciprofloxacin 1 drop 02/23/17 18:45 02/24/17 10:25 Ciloxan 0.3% Eye Drops - OD 1 drop DAILY JUNIOR Administration Folic Acid 1 mg 02/21/17 10:00 02/24/17 10:20 Folic Acid - PO 1 mg DAILY JUNIOR Administration Heparin Sodium (Porcine) 5,000 unit 02/21/17 14:00 02/24/17 05:27 Heparin - SQ 5,000 unit TID JUNIOR Administration Hydromorphone HCl 1 mg 02/23/17 23:03 02/24/17 10:07 Dilaudid Injection - IVPUSH 02/24/17 23:02 1 mg Q2H PRN Administration PAIN Potassium Chloride/Sodium Chloride 1,000 mls @ 75 mls/hr 02/24/17 12:45 13:33 1/2ns+20meq Kcl IV 75 mls/hr ASDIR JUNIOR Administration Multivitamins/Minerals/Vitamin C 1 tab 02/21/17 10:00 02/24/17 10:20 Tab-A-Vit - PO 1 tab DAILY JUNIOR Administration Mupirocin 1 applic 02/20/17 22:00 02/24/17 10:22 Bactroban Ointment (For Decolonization) - NS 02/25/17 21:59 1 applic BID JUNIOR Administration Sodium Chloride 2 spray 02/23/17 18:40 02/23/17 21:55 [place] Nasal [place] - NS 2 spray BID PRN Administration NASAL CONGESTION ASSESSMENT/PLAN: 56yo M with PMH of nicotine dependence, Right lung CA, CAD with 2 stents, htn, hld, gout, presented with worsening cough and sputum production and admitted to med-surg in preparation for lung biopsy and possible lung surgery. 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 Gilmore as outpatient 3) CAD s/p 2 stents - resume ASA through G-tube 4) htn - elevated 2/2 pain - continue Norvasc 5) hypokalemia - repleted with KCl 40meq via PEG - f/u K+ was 3.1 this afternoon - another dose of KCl 40meq via PEG ordered - f/u bmp in the am 6) gout - continue Allopurinol 7) FEN - Fluids: NS @ 125 ml/hr - Electolytes: hypernatremia and hypokalemia noted, continue to monitor. - Nutrition: Jevity 1.5 @ 50 ml/hr, plus 40 ml/hr water in addition to tube feeding 8) Prophylaxis - DVT ppx with Heparin 5,000U SQ TID - deconditioning ppx with Physical Therapy Consult Visit type - Emergency Visit Emergency Visit: Yes ED Registration Date: 02/11/17 Care time: The patient presented to the Emergency Department on the above date and was hospitalized for further evaluation of their emergent condition. - New Patient This patient is new to me today: No - Critical Care Critical Care patient: Yes Total Critical Care Time (in minutes): 40 Critical Care Statement: The care of this patient involved high complexity decision making to prevent further life threatening deterioration of the patient 's condition and/or to evaluate & treat vital organ system(s) failure or risk of failure.
[2017-02-24] MEDS: SODIUM CHLORIDE 0.45%/POT 1,000 ML IV SCH (18:17)
--- NOTE | 2017-02-24 18:30 | PN ---
Progress Note (short form) - Note Progress Note: Flap and tissues viable No collections STSG donor site CDI exposed to air dry Cr has normalized Patient is intermittently agitated and requires chelsy to prevent harm Continue to treat agitation/withdrawl OOB to chair Doppler checks can be decreased to hourly rather than continuous Care to avoid constriction of pedicle by oxygen mask/tent
--- NOTE | 2017-02-24 19:27 | PN ---
Teaching Attending Note Name of Resident: Gloria Zaldivar ATTENDING PHYSICIAN STATEMENT I saw and evaluated the patient. I reviewed the resident's note and discussed the case with the resident. I agree with the resident's findings and plan as documented. SUBJECTIVE: seen at 9:30 no fever or chills , denies pain OBJECTIVE: looks uncomfortable CV: RRR Lungs: clear anteriorly Ext: surgical dressings on anterior thighs, surrounding edema improved . DP 2+ b /l ABd: soft, ND, decreased BS. PEG ASSESSMENT AND PLAN: 56 y/o gentleman with h/o Nicotine dependence, HTn, CAD s/p Stenting , hyperlipidemia and recently diagnosed R lung adenocarcinoma who presented for pulmonary resection. 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 3- HTN -cont norvasc 4- JOSE: possibly due to volume depletion , resolved . cont IVF 5- Acute blood loss anemia. stable HB 6- CAD : cont ASpirin through PEG DVT px with heparin Critical Care Total Critical Care Time (in minutes): 30 Critical Care Statement: The care of this patient involved high complexity decision making to prevent further life threatening deterioration of the patient 's condition and/or to evaluate & treat vital organ system(s) failure or risk of failure.
[2017-02-24 22:24] LABS: ANION GAP 9 (8-16); CALCIUM 8.2 mg/dL (8.5-10.1); CO2 28 mmol/L (21-32); CREATININE 0.9 mg/dL (0.7-1.3); GLUCOSE,RANDOM 163 mg/dL (74-106)
[2017-02-25] MEDS ORDERED: HYDROmorphone HCL CARPU-JECT 1 MG/1 ML DISP.SYRIN IVPUSH ONE ×2 (00:55→00:56)
[2017-02-25] MEDS: HYDROmorphone HCL CARPU-JECT 1 MG/1 ML DISP.SYRIN IVPUSH PRN ×7 (03:19→18:24)
[2017-02-25] MEDS: HEPARIN NA (PORCINE) 5,000 UNITS/ML 1ML VIAL SQ SCH ×3 (06:30→21:06)
[2017-02-25 07:28] LABS: ANION GAP 6 (8-16); CALCIUM 8.3 mg/dL (8.5-10.1); CO2 30 mmol/L (21-32); CREATININE 0.9 mg/dL (0.7-1.3); GLUCOSE,RANDOM 156 mg/dL (74-106)
[2017-02-25] MEDS ORDERED: LORazepam 2 MG/ML SDV VIAL ONE ×2 (07:42→15:01)
[2017-02-25] MEDS ORDERED: LORazepam 2 MG/ML SDV VIAL IVPUSH ONE (07:45)
[2017-02-25 08:27] LABS: BASO % 1.1 % (0-2.0); EOS % 5.8 % (0-4.5); MCH 31.5 pg (25.7-33.7); MCHC 33.5 g/dl (32.0-35.9); MEAN CELL VOLUME 94.1 fl (80-96); MEAN PLT VOLUME 9.2 fl (7.5-11.1); NEUT % 68.7 % (42.8-82.8); PLATELET COUNT 299 K/MM3 (134-434); RDW 13.2 % (11.9-15.9); WHITE BLOOD COUNT 11.6 K/mm3 (4.0-10.0)
[2017-02-25] MEDS ORDERED: POTASSIUM CHLORIDE ORAL LIQUID 20 MEQ/15 ML PEG ONE (08:31)
--- NOTE | 2017-02-25 08:40 | PN ---
Progress Note (short form) - Note Progress Note: Flap viable Patient with one episode of fever overnight Wound without overt evidence of infection Patient very agitated Plan fever work-up treatment for agitation with ativan standing order plan rader out tomorrow once less agitated Donor site dressing down tomorrow
[2017-02-25] MEDS: ACETAMINOPHEN 650 MG/20.3 ML ORAL SOLUTION (CUPS) PO PRN ×2 (08:48→15:17)
--- NOTE | 2017-02-25 08:48 | PN ---
Physical Exam: SUBJECTIVE: Patient seen and examined. No fever or chills. Pt denies pain, though appears agitated/uncomfortable. OBJECTIVE: Vital Signs Period Temp Pulse Resp BP Sys/Clay Pulse Ox Last 24 Hr 98.4 F-101.6 F 104-127 16-25 145-194/68-114 50-100 GENERAL: The patient is awake, alert, and fully oriented, looks uncomfortable. NECK: Incisions to neck with staple closure noted. [place] intact. Flap viable. ANNA drains x 2 draining serosanguinous fluid. LUNGS: Breath sounds equal, clear to anterior auscultation bilaterally, no wheezes, no crackles, no accessory muscle use. HEART: Regular rate and rhythm, S1, S2 without murmur, rub or gallop. ABDOMEN: Soft, nondistended. G-tube in place. EXTREMITIES: Warm, well-perfused, no edema. Surgical dressing to Left anterior thigh intact, Right thigh surgical wound exposed to air. [place] mittens, wrist restaints and vest in place as pt continuously squirms around and sometimes pulls at the surgical dressings. Dimitri SCDs applied. Laboratory Results - last 24 hr 02/25/17 02/25/17 06:00 07:20 WBC 11.6 H RBC 3.52 L Hgb 11.1 L Hct 33.1 L MCV 94.1 MCH 31.5 MCHC 33.5 RDW 13.2 Plt Count 299 D MPV 9.2 Neutrophils % 68.7 Lymphocytes % 13.3 Monocytes % 11.1 H Eosinophils % 5.8 H Basophils % 1.1 Sodium 145 Potassium 3.3 L Chloride 109 H Carbon Dioxide 30 Anion Gap 6 L BUN 10 Creatinine 0.9 Random Glucose 156 H Calcium 8.3 L Blood Type Antibody Screen Crossmatch Active Medications Generic Name Dose Route Start Last Admin Trade Name Freq PRN Reason Stop Dose Admin Acetaminophen 650 mg 02/21/17 20:01 Tylenol Oral Solution - PO Q6H PRN FEVER OR PAIN Albuterol/Ipratropium 1 amp 02/21/17 00:00 02/24/17 23:01 Duoneb - NEB 1 amp QIDR JUNIOR Administration Allopurinol 100 mg 02/22/17 17:28 02/24/17 10:32 Zyloprim - PEG 100 mg DAILY JUNIOR Administration Amlodipine Besylate 10 mg 02/23/17 16:45 02/24/17 10:21 Norvasc - PEG 10 mg DAILY JUNIOR Administration Aspirin 81 mg 02/23/17 10:00 02/24/17 10:22 Asa - PEG 81 mg DAILY JUNIOR Administration Ciprofloxacin 1 drop 02/23/17 18:45 02/24/17 10:25 Ciloxan 0.3% Eye Drops - OD 1 drop DAILY JUNIOR Administration Folic Acid 1 mg 02/21/17 10:00 02/24/17 10:20 Folic Acid - PO 1 mg DAILY JUNIOR Administration Heparin Sodium (Porcine) 5,000 unit 02/21/17 14:00 02/25/17 06:30 Heparin - SQ 5,000 unit TID JUNIOR Administration Hydromorphone HCl 1 mg 02/24/17 23:26 02/25/17 07:09 Dilaudid Injection - IVPUSH 02/25/17 23:29 1 mg Q2H PRN Administration PAIN Potassium Chloride/Sodium Chloride 1,000 mls @ 100 mls/hr 02/24/17 17:09 11/03 18:17 1/2ns+20meq Kcl IV 100 mls/hr ASDIR JUNIOR Administration Multivitamins/Minerals/Vitamin C 1 tab 02/21/17 10:00 02/24/17 10:20 Tab-A-Vit - PO 1 tab DAILY JUNIOR Administration Mupirocin 1 applic 02/20/17 22:00 02/24/17 22:34 Bactroban Ointment (For Decolonization) - NS 02/25/17 21:59 1 applic BID JUNIOR Administration Sodium Chloride 2 spray 02/23/17 18:40 02/23/17 21:55 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 1) Laryngeal squamous cell Ca s/p laryngectomy with left anterolateral thigh flap pharyngeal reconstruction on 02/20/17 - trach matured to skin, intact, patent, no secretions - doppler checks decreased to hourly, as opposed to continuous - flap and tissues viable - monitor ANNA output - serous - OOB to chair as tolerated - Pt is intermittently agitated and requires chelsy to prevent self harm - Ativan 2mg IVpush TID added for agitation - Dilaudid 1mg IVpush q2hr prn for pain 2) 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 Gilmore as outpatient 3) leukocytosis - mild, continue to monitor - Tmax 101.6 at 20:00 yesterday evening noted - new blood cultures pending 4) CAD s/p 2 stents - resume ASA through G-tube 5) htn - elevated 2/2 pain - continue Norvasc 6) hypokalemia - repleted with KCl 40meq via PEG 7) gout - continue Allopurinol 8) FEN - Fluids: 1/2NS+20meq/L KCl @ 100 ml/hr - Electolytes: hypokalemia noted, continue to monitor. - Nutrition: Jevity 1.5 @ 50 ml/hr, plus 40 ml/hr water in addition to tube feeding 9) Prophylaxis - DVT ppx with Heparin 5,000U SQ TID - deconditioning ppx with Physical Therapy Consult Visit type - Emergency Visit Emergency Visit: Yes ED Registration Date: 02/11/17 Care time: The patient presented to the Emergency Department on the above date and was hospitalized for further evaluation of their emergent condition. - New Patient This patient is new to me today: No - Critical Care Critical Care patient: Yes Total Critical Care Time (in minutes): 35 Critical Care Statement: The care of this patient involved high complexity decision making to prevent further life threatening deterioration of the patient 's condition and/or to evaluate & treat vital organ system(s) failure or risk of failure.
[2017-02-25] MEDS: ASPIRIN 81 MG CHEWABLE TABLETS PEG SCH (09:02)
[2017-02-25] MEDS: FOLIC ACID 1 MG TABLET (FP) PO SCH (09:02)
[2017-02-25] MEDS: MULTIVITAMINS (DAILY MVI) TABLET (FP) PO SCH (09:02)
[2017-02-25] MEDS: ALLOPURINOL 100 MG TABLET (FP) PEG SCH (09:02)
[2017-02-25] MEDS: amLODIPine BESYLATE 10 MG TABLET (FP) PEG SCH (09:02)
[2017-02-25] MEDS: CIPROFLOXACIN 0.3% EYE DROPS 5 ML BOTTLE OD SCH (09:06)
[2017-02-25] MEDS: MUPIROCIN 2% TOPICAL OINTMENT FOR DECOLONIZATION NS SCH (09:06)
[2017-02-25] MEDS ORDERED: PIPERACILLIN/TAZOB 4.5 GM/100 ML PREMIX BAG IVPB SCH (11:00)
[2017-02-25] MEDS: VANCOMYCIN 1,500 MG in DEXTROSE 5%-WATER - 500 ML IVPB SCH ×2 (11:24→23:30)
[2017-02-25] MEDS: PIPERACILLIN/TAZOB 4.5 GM 4.5 GM in DEXTROSE 5%-WATER - 100 ML IVPB SCH ×2 (11:24→17:02)
[2017-02-25] MEDS: SODIUM CHLORIDE 0.45%/POT 1,000 ML IV SCH ×2 (11:33→21:07)
[2017-02-25] MEDS: ALBUTEROL SO4 2.5/IPRATROPIUM 0.5 INH SOL 3 ML VIAL.NEB. NEB SCH ×2 (12:00→19:16)
--- NOTE | 2017-02-25 12:02 | PN ---
Teaching Attending Note Name of Resident: Mallory Ma ATTENDING PHYSICIAN STATEMENT I saw and evaluated the patient. I reviewed the resident's note and discussed the case with the resident. I agree with the resident's findings and plan as documented. SUBJECTIVE: Pt seen and examined in the ICU. Intermittently confused requiring sedation. Febrile overnight to 101. OBJECTIVE: Last Vital Signs Temp Pulse Resp BP Pulse Ox 98.8 F 94 H 16 165/106 97 02/25/17 11:00 02/25/17 11:00 02/25/17 11:00 02/25/17 11:00 02/25/17 08:26 Intake & Output 02/22/17 02/23/17 02/24/17 02/25/17 23:59 23:59 23:59 23:59 Intake Total 2445.5 3430 2445 Output Total 5150 5565 910 Balance -2704.5 -2135 1535 Weight 229 lb 14.4 oz 227 lb 14.4 oz 226 lb 9.6 oz Gen: confused, awake Heart: RRR Lung: scattered rhonchi Abd: soft, nontender, +G tube Ext: no edema CBC, BMP 02/25/17 07:20 02/25/17 06:00 CXR: bibasilar atelectasis vs infiltrates Active Medications Acetaminophen (Tylenol Oral Solution -) 650 mg PO Q6H PRN PRN Reason: FEVER OR PAIN Last Admin: 02/25/17 08:48 Dose: 650 mg Albuterol/Ipratropium (Duoneb -) 1 amp NEB QIDR [facility] Last Admin: 02/24/17 23:01 Dose: 1 amp Allopurinol (Zyloprim -) 100 mg PEG DAILY [facility] Last Admin: 02/25/17 09:02 Dose: 100 mg Amlodipine Besylate (Norvasc -) 10 mg PEG DAILY [facility] Last Admin: 02/25/17 09:02 Dose: 10 mg Aspirin (Asa -) 81 mg PEG DAILY [facility] Last Admin: 02/25/17 09:02 Dose: 81 mg Ciprofloxacin (Ciloxan 0.3% Eye Drops -) 1 drop OD DAILY [facility] Last Admin: 02/25/17 09:06 Dose: 1 drop Folic Acid (Folic Acid -) 1 mg PO DAILY [facility] Last Admin: 02/25/17 09:02 Dose: 1 mg Heparin Sodium (Porcine) (Heparin -) 5,000 unit SQ TID [facility] Last Admin: 02/25/17 06:30 Dose: 5,000 unit Hydromorphone HCl (Dilaudid Injection -) 1 mg IVPUSH Q2H PRN PRN Reason: PAIN Stop: 02/25/17 23:29 Last Admin: 02/25/17 11:02 Dose: 1 mg Potassium Chloride/Sodium Chloride (1/2ns+20meq Kcl) 1,000 mls @ 100 mls/hr IV ASDIR [facility] Last Admin: 02/25/17 11:33 Dose: 100 mls/hr Vancomycin HCl 1,500 mg/ (Dextrose) 500 mls @ 166.667 mls/hr IVPB Q12H [facility] Last Admin: 02/25/17 11:24 Dose: 166.667 mls/hr Piperacillin Sod/Tazobactam (Sod 4.5 gm/ Dextrose) 100 mls @ 200 mls/hr IVPB Q8H-IV [facility] Last Admin: 02/25/17 11:24 Dose: 200 mls/hr Lorazepam (Ativan Injection -) 2 mg IVPUSH TID [facility] Multivitamins/Minerals/Vitamin C (Tab-A-Vit -) 1 tab PO DAILY [facility] Last Admin: 02/25/17 09:02 Dose: 1 tab Mupirocin (Bactroban Ointment (For Decolonization) -) 1 applic NS BID [facility] Stop: 02/25/17 21:59 Last Admin: 02/25/17 09:06 Dose: 1 applic Sodium Chloride ([place] Nasal [place] -) 2 spray NS BID PRN PRN Reason: NASAL CONGESTION Last Admin: 02/23/17 21:55 Dose: 2 spray ASSESSMENT AND PLAN: NSCLC - Adenocarcinoma s/p R VATS/Wedge Resection/CT placement now removed 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
[2017-02-25 12:50] LABS: URINE APPEARANCE SLCLOUDY; URINE BILIRUBIN NEGATIVE (NEGATIVE); URINE BLOOD NEGATIVE (NEGATIVE); URINE COLOR YELLOW; URINE GLUCOSE (UA) NEGATIVE (NEGATIVE); URINE KETONE NEGATIVE (NEGATIVE); URINE NITRITE NEGATIVE (NEGATIVE); URINE PROTEIN NEGATIVE (NEGATIVE); URINE UROBILINOGEN NEGATIVE mg/dL (0.2-1.0)
[2017-02-25] MEDS ORDERED: HALOPERIDOL LACTATE 5 MG/ML IM ONE (14:52)
--- NOTE | 2017-02-25 15:56 | PN ---
Physical Exam: SUBJECTIVE: Patient seen and examined at bedside. 24 hr events -Pt agitated and tachycardic overnight, most likely 2/2 pain -received ativan and dilaudid early this morning -febrile at tmax 101.6F -1 episode of NBNB emesis Today -PO day 5, s/p laryngectomy -Pt intermittently agitated -On 50% Fi02 trach collar, sat well at 97% -elevated BP, most likely 2/2 pain post-op OBJECTIVE: Vital Signs Period Temp Pulse Resp BP Sys/Clay Pulse Ox Last 24 Hr 98.4 F-101.6 F 94-124 16-28 141-194/68-122 50-97 GENERAL: The patient is awake, intermittently agitated HEAD: Normal with no signs of trauma. EYES: PERRL, extraocular movements intact, sclera anicteric, conjunctiva clear. NECK: Trachea midline, supple. Surgical incisions and drains intact. LUNGS: rhonchi appreciated in lung shabazz b/l HEART: regular rate and rhythm, S1, S2 without murmur, rub or gallop. ABDOMEN: Soft, nontender, nondistended, normoactive bowel sounds, no guarding, no rebound EXTREMITIES: wrapped lower extremities, no edema NEUROLOGICAL: hand driller appear to be intact, however difficult to assess as pt is agitated Laboratory Results - last 24 hr 02/24/17 02/24/17 02/25/17 05:37 21:35 00:02 WBC RBC Hgb Hct MCV MCH MCHC RDW Plt Count MPV Neutrophils % Lymphocytes % Monocytes % Eosinophils % Basophils % Sodium 147 H Potassium 3.3 L Chloride 110 H Carbon Dioxide 28 Anion Gap 9 BUN 9 Creatinine 0.9 POC Glucometer [id number] 169.63856 Random Glucose 163 H Calcium 8.2 L Ammonia Urine Color Urine Appearance Urine pH Ur Specific [place] Urine Protein Urine Glucose (UA) Urine Ketones Urine Blood Urine Nitrite Urine Bilirubin Urine Urobilinogen 02/25/17 02/25/17 02/25/17 06:00 07:20 08:50 WBC 11.6 H RBC 3.52 L Hgb 11.1 L Hct 33.1 L MCV 94.1 MCH 31.5 MCHC 33.5 RDW 13.2 Plt Count 299 D MPV 9.2 Neutrophils % 68.7 Lymphocytes % 13.3 Monocytes % 11.1 H Eosinophils % 5.8 H Basophils % 1.1 Sodium 145 Potassium 3.3 L Chloride 109 H Carbon Dioxide 30 Anion Gap 6 L BUN 10 Creatinine 0.9 POC Glucometer Random Glucose 156 H Calcium 8.3 L Ammonia Urine Color Yellow Urine Appearance Slcloudy Urine pH 7.0 Ur Specific [place] 1.013 Urine Protein Negative Urine Glucose (UA) Negative Urine Ketones Negative Urine Blood Negative Urine Nitrite Negative Urine Bilirubin Negative Urine Urobilinogen Negative 02/25/17 15:05 WBC RBC Hgb Hct MCV MCH MCHC RDW Plt Count MPV Neutrophils % Lymphocytes % Monocytes % Eosinophils % Basophils % Sodium Potassium Chloride Carbon Dioxide Anion Gap BUN Creatinine POC Glucometer Random Glucose Calcium Ammonia 18.52 Urine Color Urine Appearance Urine pH Ur Specific [place] Urine Protein Urine Glucose (UA) Urine Ketones Urine Blood Urine Nitrite Urine Bilirubin Urine Urobilinogen Active Medications Generic Name Dose Route Start Last Admin Trade Name Freq PRN Reason Stop Dose Admin Acetaminophen 650 mg 02/21/17 20:01 02/25/17 15:17 Tylenol Oral Solution - PO 650 mg Q6H PRN Administration FEVER OR PAIN Albuterol/Ipratropium 1 amp 02/21/17 00:00 02/24/17 23:01 Duoneb - NEB 1 amp QIDR JUNIOR Administration Allopurinol 100 mg 02/22/17 17:28 02/25/17 09:02 Zyloprim - PEG 100 mg DAILY JUNIOR Administration Amlodipine Besylate 10 mg 02/23/17 16:45 02/25/17 09:02 Norvasc - PEG 10 mg DAILY JUNIOR Administration Aspirin 81 mg 02/23/17 10:00 02/25/17 09:02 Asa - PEG 81 mg DAILY JUNIOR Administration Ciprofloxacin 1 drop 02/23/17 18:45 02/25/17 09:06 Ciloxan 0.3% Eye Drops - OD 1 drop DAILY JUNIOR Administration Folic Acid 1 mg 02/21/17 10:00 02/25/17 09:02 Folic Acid - PO 1 mg DAILY JUNIOR Administration Heparin Sodium (Porcine) 5,000 unit 02/21/17 14:00 02/25/17 12:59 Heparin - SQ 5,000 unit TID JUNIOR Administration Hydromorphone HCl 1 mg 02/24/17 23:26 02/25/17 13:08 Dilaudid Injection - IVPUSH 02/25/17 23:29 1 mg Q2H PRN Administration PAIN Potassium Chloride/Sodium Chloride 1,000 mls @ 100 mls/hr 02/24/17 17:09 12/04 11:33 1/2ns+20meq Kcl IV 100 mls/hr ASDIR JUNIOR Administration Vancomycin HCl 1,500 mg/ 500 mls @ 166.667 mls/hr 02/25/17 11:30 02/25/17 11: 24 Dextrose IVPB 166.667 mls/hr Q12H JUNIOR Administration Piperacillin Sod/Tazobactam 100 mls @ 200 mls/hr 02/25/17 11:00 02/25/17 11: 24 Sod 4.5 gm/ Dextrose IVPB 200 mls/hr Q8H-IV JUNIOR Administration Lorazepam 2 mg 02/25/17 16:00 02/25/17 15:04 Ativan Injection - IVPUSH 2 mg TID JUNIOR Administration Multivitamins/Minerals/Vitamin C 1 tab 02/21/17 10:00 02/25/17 09:02 Tab-A-Vit - PO 1 tab DAILY JUNIOR Administration Mupirocin 1 applic 02/20/17 22:00 02/25/17 09:06 Bactroban Ointment (For Decolonization) - NS 02/25/17 21:59 1 applic BID JUNIOR Administration Sodium Chloride 2 spray 02/23/17 18:40 02/23/17 21:55 [place] Nasal [place] - NS 2 spray BID PRN Administration NASAL CONGESTION ASSESSMENT/PLAN: This is a 56 y/o M with h/o Nicotine dependence, HTN, CAD s/p Stenting , HLD and recently diagnosed R lung adenocarcinoma, who presented for pulmonary resection. 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 Pt managed in ICU post-op. Today is Day5. HEAD AND NECK #s/p laryngectomy (PO Day 5) -extubated (02/23/17), on trach collar Fi02 50%, sat well -Pt's surgical incisions healing well, drains intact. -Chest tube removed (02/23/17) -Will continue to follow drain output -Will continue to monitor LE doppler -Pain control: dilaudid 1mg q2hr -Followed by Dr. Bledsoe RENAL #Hypernatremia-resolved #Hypokalemia -Received KCl 40 mEq through PEG -K 3.3, 20 mEq KCl added to fluids PULM -incentive spirometry to prevent post-op atelectasis -Duonebs 1 amp QID ID -Since febrile, F/u UA, UCx -started on vanc and zosyn (Today is Day1) DETOX -pt started on ativan 2mg IVP TID -continue Folic acid, MTV PROPHYLAXIS DVT: Heparin 5000 U SQ TID F/E/N -currently on 1/2NS +20 mEq KCl -will follow electrolytes, especially Na, K -tube feeds have restarted DISPOSITION -Continued ICU management -will f/u PT recommendations Visit type - Emergency Visit Emergency Visit: No - New Patient This patient is new to me today: No - Critical Care Critical Care patient: Yes Total Critical Care Time (in minutes): 42 Critical Care Statement: The care of this patient involved high complexity decision making to prevent further life threatening deterioration of the patient 's condition and/or to evaluate & treat vital organ system(s) failure or risk of failure.
[2017-02-25] MEDS ORDERED: HYDROmorphone HCL CARPU-JECT 2 MG/1 ML DISP.SYRIN ONE ×3 (16:06→23:10)
[2017-02-25] MEDS ORDERED: PT OWN MED DRAWER 7, Y5N ONE ×2 (16:44→21:01)
--- NOTE | 2017-02-25 19:28 | PN ---
Teaching Attending Note Name of Resident: Gloria Zaldivar ATTENDING PHYSICIAN STATEMENT I saw and evaluated the patient. I reviewed the resident's note and discussed the case with the resident. I agree with the resident's findings and plan as documented. SUBJECTIVE: Patient is agitated, confused, in ICU. OBJECTIVE: Vital Signs Temperature 99.6 F 02/25/17 16:00 Pulse Rate 100 H 02/25/17 16:00 Respiratory Rate 20 02/25/17 16:00 Blood Pressure 168/105 02/25/17 18:00 O2 Sat by Pulse Oximetry (%) 99 02/25/17 11:00 CBCD WBC 11.6 K/mm3 (4.0-10.0) H 02/25/17 07:20 RBC 3.52 M/mm3 (4.00-5.60) L 02/25/17 07:20 Hgb 11.1 GM/dL (11.7-16.9) L 02/25/17 07:20 Hct 33.1 % (35.4-49) L 02/25/17 07:20 MCV 94.1 fl (80-96) 02/25/17 07:20 MCHC 33.5 g/dl (32.0-35.9) 02/25/17 07:20 RDW 13.2 % (11.9-15.9) 02/25/17 07:20 Plt Count 299 K/MM3 (134-434) D 02/25/17 07:20 MPV 9.2 fl (7.5-11.1) 02/25/17 07:20 CMP Sodium 145 mmol/L (136-145) 02/25/17 06:00 Potassium 3.3 mmol/L (3.5-5.1) L 02/25/17 06:00 Chloride 109 mmol/L (98-107) H 02/25/17 06:00 Carbon Dioxide 30 mmol/L (21-32) 02/25/17 06:00 Anion Gap 6 (8-16) L 02/25/17 06:00 BUN 10 mg/dL (7-18) 02/25/17 06:00 Creatinine 0.9 mg/dL (0.7-1.3) 02/25/17 06:00 Creat Clearance w eGFR > 60 (>60) 02/23/17 19:50 Random Glucose 156 mg/dL (74-106) H 02/25/17 06:00 Calcium 8.3 mg/dL (8.5-10.1) L 02/25/17 06:00 Total Bilirubin 0.3 mg/dL (0.2-1.0) D 02/23/17 19:50 AST 21 U/L (15-37) D 02/23/17 19:50 ALT 15 U/L (12-78) D 02/23/17 19:50 Alkaline Phosphatase 62 U/L (45-117) D 02/23/17 19:50 Total Protein 5.5 g/dl (6.4-8.2) L 02/23/17 19:50 Albumin 1.9 g/dl (3.4-5.0) L D 02/23/17 19:50 CARDIAC ENZYMES Creatine Kinase 71 IU/L (39-308) 02/11/17 10:24 Troponin I < 0.02 ng/ml (0.00-0.05) 02/11/17 10:24 Current Medications Generic Name Dose Route Start Last Admin Trade Name Freq PRN Reason Stop Dose Admin Acetaminophen 650 mg 02/21/17 20:01 02/25/17 15:17 Tylenol Oral Solution - PO 650 mg Q6H PRN Administration FEVER OR PAIN Albuterol/Ipratropium 1 amp 02/21/17 00:00 02/25/17 19:16 Duoneb - NEB 1 amp QIDR JUNIOR Administration Allopurinol 100 mg 02/22/17 17:28 02/25/17 09:02 Zyloprim - PEG 100 mg DAILY JUNIOR Administration Amlodipine Besylate 10 mg 02/23/17 16:45 02/25/17 09:02 Norvasc - PEG 10 mg DAILY JUNIOR Administration Aspirin 81 mg 02/23/17 10:00 02/25/17 09:02 Asa - PEG 81 mg DAILY JUNIOR Administration Ciprofloxacin 1 drop 02/23/17 18:45 02/25/17 09:06 Ciloxan 0.3% Eye Drops - OD 1 drop DAILY JUNIOR Administration Folic Acid 1 mg 02/21/17 10:00 02/25/17 09:02 Folic Acid - PO 1 mg DAILY JUNIOR Administration Heparin Sodium (Porcine) 5,000 unit 02/21/17 14:00 02/25/17 12:59 Heparin - SQ 5,000 unit TID JUNIOR Administration Hydromorphone HCl 1 mg 02/24/17 23:26 02/25/17 18:24 Dilaudid Injection - IVPUSH 02/25/17 23:29 1 mg Q2H PRN Administration PAIN Potassium Chloride/Sodium Chloride 1,000 mls @ 100 mls/hr 02/24/17 17:09 12/04 11:33 1/2ns+20meq Kcl IV 100 mls/hr ASDIR JUNIOR Administration Vancomycin HCl 1,500 mg/ 500 mls @ 166.667 mls/hr 02/25/17 11:30 02/25/17 11: 24 Dextrose IVPB 166.667 mls/hr Q12H JUNIOR Administration Piperacillin Sod/Tazobactam 100 mls @ 200 mls/hr 02/25/17 11:00 02/25/17 17: 02 Sod 4.5 gm/ Dextrose IVPB 200 mls/hr Q8H-IV JUNIOR Administration Lorazepam 2 mg 02/25/17 16:00 02/25/17 15:04 Ativan Injection - IVPUSH 2 mg TID JUNIOR Administration Multivitamins/Minerals/Vitamin C 1 tab 02/21/17 10:00 02/25/17 09:02 Tab-A-Vit - PO 1 tab DAILY JUNIOR Administration Mupirocin 1 applic 02/20/17 22:00 02/25/17 09:06 Bactroban Ointment (For Decolonization) - NS 02/25/17 21:59 1 applic BID JUNIOR Administration Sodium Chloride 2 spray 02/23/17 18:40 02/23/17 21:55 [place] Nasal [place] - NS 2 spray BID PRN Administration NASAL CONGESTION Home Medications Medication Instructions Recorded Amlodipine Besylate 10 mg PO DAILY 12/23/16 Atorvastatin Ca [Lipitor] 10 mg PO HS 12/23/16 Gabapentin 800 mg PO TID 12/23/16 Quetiapine Fumarate "Xr" [Seroquel 300 mg PO ACDIN 12/23/16 Xr -] Sertraline HCl [Zoloft] 100 mg PO BID 12/23/16 Folic Acid 1 mg PO DAILY 01/02/17 Allopurinol [Zyloprim -] 100 mg PO DAILY 02/12/17 Aspirin [ASA -] 81 mg PO DAILY 02/12/17 PE: per resident's note A/P: 56 y/o gentleman with h/o Nicotine dependence, HTn, CAD s/p Stenting , hyperlipidemia and recently diagnosed R lung adenocarcinoma who presented for pulmonary resection. 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 # POD #7 Laryngeal SCC s/p larynegectomy , with flap reconstruction : of mechanical vent and sedation ; Plastics . #Lung cancer : s/p wedge resection ;thoracic surgeon Neri # HTN -cont norvasc # JOSE: resolved # Acute blood loss anemia: stable HB, will continue to monitor # CAD : cont Aspirin through PEG DVT px with heparin
[2017-02-25 19:47] LABS: URINE LEUK ESTERASE Negative (NEGATIVE)
[2017-02-25] MEDS: LORazepam 2 MG/ML SDV VIAL IVPUSH SCH (21:55)
--- NOTE | 2017-02-25 22:14 | PN ---
Progress Note (short form) - Note Progress Note: Post-op Day 5 from laryngopharyngectomy, bilateral neck dissection, anterolateral thigh free flap reconstruction. Has been intermittently agitated, controlled with ativan and dilaudid. Requiring restraints in order not to pull out lines, etc. Had two episodes of vomiting and g-tube feeds held. Tmax 101.6, HR up to 120, BP stable. Currently somewhat sedated but able to respond and follow some commands. In no distress. Wounds CDI with no erythema, tracheostome clear, open and intact-- minimal secretions. Drains intact bilaterally with serous drainage. Abdomen soft and nontender, g-tube intact. Flap and graft sites appear clean and intact. WBC 11.6 CXR clear A/P: Generally recovering gradually after major head and neck surgery with permanent tracheostome. Although there is fever and a rising WBC I see no evidence of infection clinically. I would be hesitant to continue broad spectrum antibiotics with no source for several reasons: inability to culture off antibiotics, possibility of c.difficile or yeast infection, development of resistant bacteria, possible need for additional and fdc antibiotics if a proven infection exists. In the meantime, resume feeds at lower rate tomorrow ( start at 30cc/h); suction tracheostome if any secretions are detected and at least twice daily empirically; continue ANNA drains--can be removed once <20 cc/d each, but only remove one at a time; continue SQ heparin and aspirin; continue bedside PT; continue standing ativan and prn dilaudid (he is used to 2 pints of vodka per day, so although he may no longer be at risk for withdrawal, he will not feel well if he is not medicated with anxiolytics--particularly while recovering from surgery in the ICU; once he becomes less agitated and more cooperative we should get him out of bed and perform vigorous PT; also should remove rader once he is more aware. Dr. Matheus Cullen is covering me from 02/25 until 03/02 6 pm.
[2017-02-26] MEDS: ALBUTEROL SO4 2.5/IPRATROPIUM 0.5 INH SOL 3 ML VIAL.NEB. NEB SCH (00:20)
[2017-02-26] MEDS: VANCOMYCIN 1,500 MG in DEXTROSE 5%-WATER - 500 ML IVPB SCH ×2 (00:38→10:29)
[2017-02-26] MEDS ORDERED: PT OWN MED DRAWER 7, Y5N ONE ×2 (01:52→09:23)
[2017-02-26] MEDS: PIPERACILLIN/TAZOB 4.5 GM 4.5 GM in DEXTROSE 5%-WATER - 100 ML IVPB SCH ×3 (01:53→19:06)
[2017-02-26] MEDS ORDERED: HYDROmorphone HCL CARPU-JECT 2 MG/1 ML DISP.SYRIN ONE ×4 (05:23→19:07)
[2017-02-26] MEDS: HYDROmorphone HCL CARPU-JECT 1 MG/1 ML DISP.SYRIN IVPUSH PRN ×4 (05:30→19:00)
[2017-02-26] MEDS: HEPARIN NA (PORCINE) 5,000 UNITS/ML 1ML VIAL SQ SCH ×3 (06:13→21:22)
[2017-02-26] MEDS: LORazepam 2 MG/ML SDV VIAL IVPUSH SCH ×4 (06:13→21:22)
[2017-02-26 06:45] LABS: MCH 32.4 pg (25.7-33.7); MCHC 34.6 g/dl (32.0-35.9); MEAN CELL VOLUME 93.6 fl (80-96); PLATELET COUNT 326 K/MM3 (134-434); RDW 13.5 % (11.9-15.9); WHITE BLOOD COUNT 14.8 K/mm3 (4.0-10.0)
[2017-02-26 07:27] LABS: ALBUMIN 2.3 g/dl (3.4-5.0); ALK PHOS 70 U/L (45-117); ANION GAP 13 (8-16); BILIRUBIN,TOTAL 0.9 mg/dL (0.2-1.0); CALCIUM 7.7 mg/dL (8.5-10.1); CO2 25 mmol/L (21-32); GLUCOSE,RANDOM 124 mg/dL (74-106); SGOT/AST 27 U/L (15-37); SGPT/ALT 23 U/L (12-78); TOT PROT 6.4 g/dl (6.4-8.2)
[2017-02-26] MEDS: FOLIC ACID 1 MG TABLET (FP) PO SCH (10:17)
[2017-02-26] MEDS: amLODIPine BESYLATE 10 MG TABLET (FP) PEG SCH (10:17)
[2017-02-26] MEDS: MULTIVITAMINS (DAILY MVI) TABLET (FP) PO SCH (10:17)
[2017-02-26] MEDS: ALLOPURINOL 100 MG TABLET (FP) PEG SCH (10:17)
[2017-02-26] MEDS: ASPIRIN 81 MG CHEWABLE TABLETS PEG SCH (10:17)
[2017-02-26] MEDS: CIPROFLOXACIN 0.3% EYE DROPS 5 ML BOTTLE OD SCH (10:18)
--- NOTE | 2017-02-26 10:54 | PATH ---
Surgical Pathology Report Patient Name: KEVIN HOOD [facility]. Rec. 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 Specimen(s) Received A: PHARYNGOLARYNX B: LEFT RADICAL NECK DISSECTION LEVEL 1B C: ANTERIOR TRACHEAL WALL D: RIGHT MODIFIED RADICAL NECK DISSECTION LEVEL 2A E: RIGHT MODIFIED RADICAL NECK DISSECTION LEVEL 3 F: RIGHT MODIFIED RADICAL NECK DISSECITON LEVEL 4 G: LEFT MODIFIED RADICAL NECK DISSECTION LEVEL 2B H: LEFT MODIFIED RADICAL NECK DISSECTION LEVEL 2A I: LEFT MODIFIED RADICAL NECK DISSECTION LEVEL 5 J: LEFT MODIFIED RADICAL NECK DISSECTION LEVEL 3 K: LEFT MODIFIED RADICAL NECK DISSECTION LEVEL 4 Clinical History Malignant neoplasm of lung and the pyriform sinus Final Diagnosis A. PHARYNGOLARYNX, LARYNGOPHARYNGECTOMY: INVASIVE SQUAMOUS CELL CARCINOMA, KERATINIZING, MODERATELY DIFFERENTIATED, INVOLVING THE LEFT PYRIFORM SINUS, ADJACENT SOFT TISSUE AND FOCALLY INVOLVING THE LARYNX (LEFT ARYTENOID AND ARYTENOID MUSCLE). CARCINOMA MEASURES 4 X 2 X 1.6 CM. LYMPHOVASCULAR INVASION PRESENT. NO PERINEURAL INVASION IDENTIFIED. MARGINS OF RESECTION ARE NEGATIVE. CLOSEST MUCOSAL MARGIN (LEFT ARYTENOID) IS AT 5 MM. REMAINDER OF THE MARGINS OF ARE >8 MM AWAY. UNREMARKABLE HYOID BONE,THYROID CARTILAGE, THYROID GLAND, AND TRACHEA. AJCC pTNM: pT3 pN2c. SEE SUMMARY BELOW. B. SOFT TISSUE, LEVEL IB, LEFT, MODIFIED RADICAL NECK DISSECTION: SUBMANDIBULAR GLAND WITHOUT SIGNIFICANT PATHOLOGIC FINDINGS. SIX BENIGN LYMPH NODES (0/6). C. TRACHEAL WALL, ANTERIOR, EXCISION: BENIGN FIBROCARTILAGINOUS TISSUE. NEGATIVE FOR CARCINOMA. D. SOFT TISSUE, IIA, RIGHT, MODIFIED RADICAL NECK DISSECTION: ONE OF SEVEN LYMPH NODES WITH METASTATIC CARCINOMA (1/7). E. SOFT TISSUE, RIGHT, III, MODIFIED RADICAL NECK DISSECTION: FIVE BENIGN LYMPH NODES (0/5). F. SOFT TISSUE, RIGHT, IV, MODIFIED RADICAL NECK DISSECTION: SEVEN BENIGN LYMPH NODES (0/7). G. SOFT TISSUE, LEFT, IIB, MODIFIED RADICAL NECK DISSECTION: THIRTEEN BENIGN LYMPH NODES (0/13). H. SOFT TISSUE, LEFT, IIA, MODIFIED RADICAL NECK DISSECTION: FOUR OF NINETEEN LYMPH NODES WITH METASTATIC CARCINOMA (4/19). EXTRANODAL EXTENSION IDENTIFIED MEASURING 0.8 CM. I. SOFT TISSUE, LEFT, V, MODIFIED RADICAL NECK DISSECTION: SEVEN BENIGN LYMPH NODES (0/7). J. SOFT TISSUE, LEFT, III, MODIFIED RADICAL NECK DISSECTION: EIGHT BENIGN LYMPH NODES (0/8). K. SOFT TISSUE, LEFT, IV, MODIFIED RADICAL NECK DISSECTION: FOUR BENIGN LYMPH NODES (0/4). Comments INVASIVE CARCINOMA SUMMARY PHARYNX Site: _X__ Hypopharynx Received: _X__ In formalin Procedure (select all that apply) _X__ Laryngopharyngectomy + Specimen Integrity + _X__Intact Specimen Size Greatest dimensions: 9 x 5.6 x 4.5 cm Specimen Laterality _X_ Left Tumor Site _X__ Piriform sinus Tumor Laterality _X_ Left Tumor Focality _X__ Single focus Tumor Size Greatest dimension: 4 cm + Additional dimensions: 2 x1.6 cm + Gross subtype: + _X__ Exophytic Carcinomas of the Oropharynx and Hypopharynx _X__ Squamous cell carcinoma, conventional _X__ Keratinizing Histologic Grade _X__ G2: Moderately differentiated + Microscopic Tumor Extension + _X__ Specify: left arytenoid mucosa, soft tissue and arytenoid muscle Margins _X__ Margins uninvolved by invasive carcinoma Distance from closest margin: Specify distance: 5 mm (left arytenoid mucosal margin) 8 mm (karen-lateral soft tissue margin) Lymph-Vascular Invasion _X_ Present Perineural Invasion (Note F) _X__ Not identified Lymph Nodes, Extranodal Extension (Note G) _X__ Present Pathologic Staging (pTNM) the Primary Tumor (pT): _X__ pT3: Tumor measures more than 4 cm in greatest dimension or with fixation of hemilarynx or extension to esophagus Regional Lymph Nodes (pN): _X__ pN2c: Metastasis in bilateral or contralateral lymph nodes, none more than 6 cm in greatest dimension Number of Lymph Nodes Examined Specify: 76 Number of Lymph Nodes Involved Specify: 5 + Size (greatest dimension) of the largest metastatic focus in the lymph node: 2.2 cm Extracapsular Extension (Note G) _X__ Present Electronically Signed Christina Anderson M.D. Gross Description A. Received in formalin labeled "proximal larynx," is a 9.0 x 5.6 x 4.5 cm laryngectomy specimen including an 8.0 x 1.0 x 0.5 cm hyoid bone, larynx from epiglottis to subglottis and proximal trachea. There is a 4.0 x 2.0 x 1.6 cm henderson-white, irregular mass involving the left pyriform sinus and abutting the left arytenoid cartilage. The tumor is approximately 0.8 cm anterior/lateral to the left true and false vocal cords, abutting the thyroid cartilage and focally at 0.8 cm from the left anterior/lateral soft tissue margin. The mass does not appear to grossly invade into the thyroid cartilage. The mass is contained on the left side and does not cross the midline. The mass focally extends to 0.6 cm from the left arytenoid mucosal margin. The tumor is 3.4 cm from the distal tracheal margin. There is a focal discoloration of the anterior commissure at the midline. The right side of the epiglottis displays a focal ulceration. There is a 3.5 x 2.4 x 1.6 cm portion of unremarkable thyroid present. Radio Program Director sections are submitted in 22 cassettes as follows: 1-left aryepiglottic fold and pyriform sinus; 2-right aryepiglottic fold and pyriform sinus; 3-epiglottis; 4-epiglottic erosion (right side); 5-right arytenoid mucosal margin; 6-8-tumor to left arytenoid mucosal margin; 9-right lateral soft tissue; 10-left lateral soft tissue; 11-tumor to left anterior/lateral soft tissue; 12-additional anterior soft tissue; 13-distal tracheal margin; 14-right true and false vocal cords, following decalcification; 15-lateral edge of left true and false vocal cords with underlying tumor; 16-additional left true and false vocal cords; 17-anterior commissure with area of discoloration; 18-soft tissue from area of base of tongue and hyoid bone, following decalcification; 19-21-mass with thyroid cartilage and left anterior/lateral soft tissue, following decalcification; 22-clearance representative thyroid. B. Received in formalin labeled "left radical neck dissection level 1B," is an 8.5 x 6.3 x 2.8 cm aggregate of yellow, lobulated adipose tissue. Sectioning reveals a 5.3 x 2.7 x 2.0 cm firm soft tissue consistent with submandibular gland. Sectioning reveals yellow, lobulated, firm soft tissue. Sectioning of the remaining tissue reveals multiple henderson, irregular lymph nodes ranging around 0.6 x 0.5 x 0.3 cm to 1.2 x 0.7 x 0.5 cm. Radio Program Director sections of the mass as well as all of the lymph nodes are submitted in 12 cassettes as follows: 5-9-pbyswmqmfwqxgx submandibular gland; 6-7-one whole lymph node each; 8-12-one whole bisected lymph node each. C. Received in formalin labeled "anterior tracheal wall," is a 3.0 x 0.9 x 0.2 cm henderson, irregular portion of cartilage. The specimen is trisected and entirely submitted in one cassette. D. Received in formalin labeled "right modified radical neck dissection 2A," is a 5.5 x 5.0 x 2.8 cm aggregate of yellow, lobulated adipose tissue. Sectioning reveals multiple henderson, irregular lymph nodes ranging from 0.4 x 0.3 x 0.3 cm to 2.5 x 1.3 x 0.9 cm. Radio Program Director sections are submitted in 9 cassettes as follows: 1-7-one whole bisected lymph node each; 8-9-one whole trisected lymph node. E. Received in formalin labeled "right modified radical neck dissection 3," is a 5.3 x 4.5 x 1.3 cm aggregate of yellow, lobulated adipose tissue. Sectioning reveals multiple henderson, irregular lymph nodes ranging from 0.3 x 0.2 x 0.2 cm to 0.7 x 0.4 x 0.4 cm. The lymph nodes are entirely submitted in 5 cassettes as follows: 1-3-one whole lymph node each; 4-5-one whole bisected lymph node each. F. Received in formalin labeled "right modified radical neck dissection 4," is a 4.8 x 3.7 x 1.2 cm aggregate of yellow, lobulated adipose tissue. Sectioning reveals multiple henderson, irregular lymph nodes ranging from 0.2 x 0.2 x 0.2 cm to 0.9 x 0.4 x 0.3 cm. The lymph nodes are entirely submitted in 4 cassettes as follows: 1-four whole possible lymph nodes; 2-3-one whole lymph node each; 4-one whole bisected lymph node. G. Received in formalin labeled "radical left modified neck dissection 2B," is a 5.8 x 4.0 x 2.8 cm aggregate of yellow, lobulated adipose tissue. Sectioning reveals multiple henderson, irregular lymph nodes ranging from 0.2 x 0.2 x 0.2 cm to 1.1 x 0.6 x 0.8 cm. The lymph nodes are entirely submitted in 10 cassettes as follows: 1-four whole possible lymph nodes; 2-5-one whole lymph node each; 6-8-one whole bisected lymph node each; 9-10-one whole trisected lymph node each H. Received in formalin labeled "left modified neck dissection 2A," is 11.0 x 8.3 x 2.7 cm aggregate of yellow, lobulated adipose tissue and brown muscle. Sectioning reveals abundant henderson, irregular lymph nodes ranging from 0.4 x 0.3 x 0.3 cm to 2.8 x 1.8 x 1.3 cm. The largest lymph node displays central necrosis. The lymph nodes are entirely submitted in 18 cassettes as follows: 1-four possible whole lymph nodes; 2-3-three whole lymph nodes each; 4-10-one whole bisected lymph node each; 11-12-one whole bisected lymph node; 13-15-one whole trisected lymph node; 16-18-one whole quadrasected lymph node. I. Received in formalin labeled "left modified radical neck dissection 5," is a 10.0 x 5.5 x 2.6 cm aggregate of yellow, lobulated adipose tissue. Sectioning reveals multiple henderson, irregular lymph nodes ranging from 0.3 x 0.3 x 0.3 cm to 0.7 x 0.4 a 0.4 cm. The lymph nodes are entirely submitted in 4 cassettes as follows: 1-four whole possible lymph nodes; 2-4-one will bisected lymph node each J. Received in formalin labeled "left modified radical neck dissection 3," is a 7.0 x 5.5 x 1.9 cm aggregate of yellow, lobulated adipose tissue. Sectioning reveals abundant henderson, irregular lymph nodes ranging from 0.3 x 0.2 x 0.2 cm to 0.9 x 0.4 x 0.4 cm. The lymph nodes are entirely submitted in 5 cassettes as follows: 1-three whole lymph nodes; 2-two whole lymph nodes; 3-5-one whole bisected lymph node each K. Received in formalin labeled "left modified neck dissection 4," is a 6.5 x 4.8 x 2.7 cm aggregate of yellow, lobulated adipose tissue. Sectioning reveals multiple henderson, irregular lymph nodes ranging from 0.2 x 0.2 x 0.1 cm to 0.7 x 0.4 x 0.4 cm. The lymph nodes are entirely submitted in 3 cassettes as follows: 1-two whole possible lymph nodes; 2-3-one whole bisected lymph node each. 02/23/201702/23/2017
--- NOTE | 2017-02-26 11:36 | PN ---
Progress Note (short form) - Note Progress Note: POD 7 post pharyngeal reconstruction. Patient is very agitated this morning and has been noted by nursing team to have dislodged the doppler probe. I came to see the patient immediately after being called to assess the flap. With an hand held doppler I was able to find a very robust audible signal over the known location of the pedicle which traced audibly to its entry point into the flap in the midline. As there is no anatomic vessel int he midline of the neck that could possible be confused with this, I am confident that this represents the pedicle and there is excellent flow. Donor site skin graft is exposed and with excellent take. Begin daily dressing changes to left thigh with bacitracin and xeroform and ABD gauze. In any event, at 7 days post op, I feel that doppler monitoring is no longer needed. The implantable probe is removed as it is no longer functioning. The patient's neck looks benign without clinical evidence of infection. He remains NPO on account of vomiting. ABX to be managed by Dr. Bledsoe and the ICU team. We must, however,better manage his agitation as he is a risk to himself and the reconstruction. I have discused this on rounds with the ICU team this morning.
--- NOTE | 2017-02-26 13:52 | PN ---
Teaching Attending Note Name of Resident: Mallory Ma ATTENDING PHYSICIAN STATEMENT I saw and evaluated the patient. I reviewed the resident's note and discussed the case with the resident. I agree with the resident's findings and plan as documented. SUBJECTIVE: Pt seen and examined in the ICU. Remains confused, intermittently agitated. No further fevers recorded. OBJECTIVE: Last Vital Signs Temp Pulse Resp BP Pulse Ox 98.3 F 118 H 21 160/92 99 02/26/17 02:00 02/26/17 11:46 02/26/17 06:00 02/26/17 06:00 02/26/17 11:46 Intake & Output 02/23/17 02/24/17 02/25/17 02/26/17 23:59 23:59 23:59 23:59 Intake Total 2445.5 3430 4905 893 Output Total 5150 5565 2530 15 Balance -2704.5 -2135 2375 878 Weight 229 lb 14.4 oz 227 lb 14.4 oz 226 lb 9.6 oz 220 lb 3.869 oz Gen: confused, diaphoretic Heart: tachycardic, regular Lung: decreased breath sounds at the bases Abd: soft, nontender Ext: no edema CBC, BMP 02/26/17 06:10 02/26/17 06:10 Active Medications Acetaminophen (Tylenol Oral Solution -) 650 mg PO Q6H PRN PRN Reason: FEVER OR PAIN Last Admin: 02/25/17 15:17 Dose: 650 mg Allopurinol (Zyloprim -) 100 mg PEG DAILY [facility] Last Admin: 02/26/17 10:17 Dose: 100 mg Amlodipine Besylate (Norvasc -) 10 mg PEG DAILY [facility] Last Admin: 02/26/17 10:17 Dose: 10 mg Aspirin (Asa -) 81 mg PEG DAILY [facility] Last Admin: 02/26/17 10:17 Dose: 81 mg Bacitracin (Bacitracin -) 1 applic TP BID [facility] Ciprofloxacin (Ciloxan 0.3% Eye Drops -) 1 drop OD DAILY [facility] Last Admin: 02/26/17 10:18 Dose: 1 drop Folic Acid (Folic Acid -) 1 mg PO DAILY [facility] Last Admin: 02/26/17 10:17 Dose: 1 mg Heparin Sodium (Porcine) (Heparin -) 5,000 unit SQ TID [facility] Last Admin: 02/26/17 06:13 Dose: 5,000 unit Hydromorphone HCl (Dilaudid Injection -) 1 mg IVPUSH Q4H PRN PRN Reason: PAIN Potassium Chloride/Sodium Chloride (1/2ns+20meq Kcl) 1,000 mls @ 100 mls/hr IV ASDIR JUNIOR Last Admin: 02/25/17 21:07 Dose: 100 mls/hr Vancomycin HCl 1,500 mg/ (Dextrose) 500 mls @ 166.667 mls/hr IVPB Q12H [facility]UN[facility] Last Admin: 02/26/17 10:29 Dose: 166.667 mls/hr Piperacillin Sod/Tazobactam (Sod 4.5 gm/ Dextrose) 100 mls @ 200 mls/hr IVPB Q8H-IV [facility]UNIOR Last Admin: 02/26/17 10:17 Dose: 200 mls/hr Lorazepam (Ativan Injection -) 2 mg IVPUSH Q6H-IV JUNIOR Last Admin: 02/26/17 10:11 Dose: 2 mg Multivitamins/Minerals/Vitamin C (Tab-A-Vit -) 1 tab PO DAILY [facility] Last Admin: 02/26/17 10:17 Dose: 1 tab Sodium Chloride ([place] Nasal [place] -) 2 spray NS BID PRN PRN Reason: NASAL CONGESTION Last Admin: 02/23/17 21:55 Dose: 2 spray ASSESSMENT AND PLAN: NSCLC - Adenocarcinoma s/p R VATS/Wedge Resection/CT placement now removed 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
[2017-02-26] MEDS: ACETAMINOPHEN 650 MG/20.3 ML ORAL SOLUTION (CUPS) PO PRN (14:36)
[2017-02-26] MEDS: BACITRACIN 15 GM TUBE TOPICAL OINTMENT TP SCH ×2 (14:37→21:28)
--- NOTE | 2017-02-26 15:37 | PN ---
Physical Exam: SUBJECTIVE: Patient seen and examined at bedside. 24 hr events -Afebrile -pt intermittently agitated, picking at leg as per nurse Today -s/p laryngectomy (today is PO day 6) -pt agitated but on restraints -flap integrity confirmed via hand held doppler by Dr. Olivares at bedside -decreased erythema in neck, incisions healing well. ANNA drains intact. -dior d/c'ed today OBJECTIVE: Vital Signs Period Temp Pulse Resp BP Sys/Clay Pulse Ox Last 24 Hr 98.3 F-100.3 F 93-138 16-23 115-172/74-109 98-99 GENERAL: The patient is awake, intermittently agitated HEAD: Normal with no signs of trauma. EYES: PERRL, extraocular movements intact, sclera anicteric, conjunctiva clear. NECK: Trachea midline, supple. Surgical incisions and drains intact. LUNGS: rhonchi appreciated in lung shabazz b/l HEART: regular rate and rhythm, S1, S2 without murmur, rub or gallop. ABDOMEN: Soft, nontender, nondistended, normoactive bowel sounds, no guarding, no rebound EXTREMITIES: warm, well-perfused, without edema NEUROLOGICAL: certified solid waste facility operator appear to be intact, however difficult to assess as pt is agitated Laboratory Results - last 24 hr 02/25/17 02/25/17 02/25/17 06:11 08:50 15:05 WBC RBC Hgb Hct MCV MCH MCHC RDW Plt Count MPV Sodium Potassium Chloride Carbon Dioxide Anion Gap BUN Creatinine Creat Clearance w eGFR POC Glucometer [phone] Random Glucose Hemoglobin A1c % Calcium Total Bilirubin AST ALT Alkaline Phosphatase Ammonia 18.52 Total Protein Albumin Ur Leukocyte Esterase Negative 02/26/17 02/26/17 02/26/17 06:10 06:10 06:10 WBC 14.8 H RBC 3.51 L Hgb 11.4 L Hct 32.9 L MCV 93.6 MCH 32.4 MCHC 34.6 RDW 13.5 Plt Count 326 MPV 9.0 Sodium 144 Potassium 4.0 D Chloride 106 Carbon Dioxide 25 Anion Gap 13 BUN 13 D Creatinine 1.0 Creat Clearance w eGFR > 60 POC Glucometer Random Glucose 124 H D Hemoglobin A1c % 5.5 Calcium 7.7 L Total Bilirubin 0.9 D AST 27 D ALT 23 D Alkaline Phosphatase 70 Ammonia Total Protein 6.4 Albumin 2.3 L D Ur Leukocyte Esterase 02/26/17 06:48 WBC RBC Hgb Hct MCV MCH MCHC RDW Plt Count MPV Sodium Potassium Chloride Carbon Dioxide Anion Gap BUN Creatinine Creat Clearance w eGFR POC Glucometer [phone] Random Glucose Hemoglobin A1c % Calcium Total Bilirubin AST ALT Alkaline Phosphatase Ammonia Total Protein Albumin Ur Leukocyte Esterase Active Medications Generic Name Dose Route Start Last Admin Trade Name Freq PRN Reason Stop Dose Admin Acetaminophen 650 mg 02/21/17 20:01 02/26/17 14:36 Tylenol Oral Solution - PO 650 mg Q6H PRN Administration FEVER OR PAIN Allopurinol 100 mg 02/22/17 17:28 02/26/17 10:17 Zyloprim - PEG 100 mg DAILY JUNIOR Administration Amlodipine Besylate 10 mg 02/23/17 16:45 02/26/17 10:17 Norvasc - PEG 10 mg DAILY JUNIOR Administration Aspirin 81 mg 02/23/17 10:00 02/26/17 10:17 Asa - PEG 81 mg DAILY J[facility]IOR Administration Bacitracin 1 applic 02/26/17 11:15 02/26/17 14:37 Bacitracin - TP 1 applic BID JUNIOR Administration Ciprofloxacin 1 drop 02/23/17 18:45 02/26/17 10:18 Ciloxan 0.3% Eye Drops - OD 1 drop DAILY JUNIOR Administration Folic Acid 1 mg 02/21/17 10:00 02/26/17 10:17 Folic Acid - PO 1 mg DAILY J[facility]IOR Administration Heparin Sodium (Porcine) 5,000 unit 02/21/17 14:00 02/26/17 14:36 Heparin - SQ 5,000 unit TID JUNIOR Administration Hydromorphone HCl 1 mg 02/26/17 13:48 Dilaudid Injection - IVPUSH Q4H PRN PAIN Potassium Chloride/Sodium Chloride 1,000 mls @ 100 mls/hr 02/24/17 17:09 12/04 21:07 1/2ns+20meq Kcl IV 100 mls/hr ASDIR JUNIOR Administration Vancomycin HCl 1,500 mg/ 500 mls @ 166.667 mls/hr 02/25/17 11:30 02/26/17 10: 29 Dextrose IVPB 166.667 mls/hr Q12H JUNIOR Administration Piperacillin Sod/Tazobactam 100 mls @ 200 mls/hr 02/25/17 11:00 11/09/17 10: 17 Sod 4.5 gm/ Dextrose IVPB 200 mls/hr Q8H-IV JUNIOR Administration Lorazepam 2 mg 02/26/17 09:00 02/26/17 14:46 Ativan Injection - IVPUSH 2 mg Q6H-IV JUNIOR Administration Multivitamins/Minerals/Vitamin C 1 tab 02/21/17 10:00 02/26/17 10:17 Tab-A-Vit - PO 1 tab DAILY [facility]IOR Administration Sodium Chloride 2 spray 02/23/17 18:40 02/23/17 21:55 [place] Nasal [place] - NS 2 spray BID PRN Administration NASAL CONGESTION ASSESSMENT/PLAN: This is a 56 y/o M with h/o Nicotine dependence, HTN, CAD s/p Stenting , HLD and recently diagnosed R lung adenocarcinoma, who presented for pulmonary resection. 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 Pt managed in ICU post-op. Today is Day5. HEAD AND NECK #s/p laryngectomy (PO Day 6) -extubated (02/23/17), on trach collar Fi02 50%, sat well -Pt's surgical incisions healing well, drains intact. -Chest tube removed (02/23/17) -Will continue to follow drain output -as per Dr. Olivares, doppler assessment no longer needed for flap -Pain control: has been changed to dilaudid 1mg q4hr -continue Bacitracin PRN -Followed by Dr. Bldesoe RENAL #Hypernatremia-resolved #Hypokalemia-resolved PULM -incentive spirometry to prevent post-op atelectasis -Duonebs 1 amp QID ID -UA- -F/u UCx -started on vanc and zosyn (Today is Day2)-will continue vanc for one more day then d/c if cx - DETOX -pt on ativan 2mg IVP TID -continue Folic acid, MTV PROPHYLAXIS DVT: Heparin 5000 U SQ TID F/E/N -currently on 1/2NS +20 mEq KCl -will follow electrolytes, especially Na, K -tube feeds DISPOSITION -Continued ICU management -will f/u PT recommendations, OOB to chair Visit type - Emergency Visit Emergency Visit: No - New Patient This patient is new to me today: No - Critical Care Critical Care patient: Yes Total Critical Care Time (in minutes): 42 Critical Care Statement: The care of this patient involved high complexity decision making to prevent further life threatening deterioration of the patient 's condition and/or to evaluate & treat vital organ system(s) failure or risk of failure.
--- NOTE | 2017-02-26 18:16 | PN ---
Physical Exam: SUBJECTIVE: Patient seen and examined. Pt remains confused, and intermittently agitated. No fever or chills. No events overnight. OBJECTIVE: Vital Signs Period Temp Pulse Resp BP Sys/Clay Pulse Ox Last 24 Hr 98.3 F-100.3 F 93-138 16-23 115-172/74-105 98-99 GENERAL: The patient is awake, alert, and fully oriented, looks uncomfortable. NECK: Incisions to neck with staple closure noted. Topher intact. Flap viable. ANNA drains x 2 draining serosanguinous fluid. LUNGS: Breath sounds equal, clear to anterior auscultation bilaterally, no wheezes, no crackles, no accessory muscle use. HEART: Regular rate and rhythm, S1, S2 without murmur, rub or gallop. ABDOMEN: Soft, nondistended. G-tube in place. EXTREMITIES: Warm, well-perfused, no edema. Surgical dressing to Left anterior thigh intact, Right thigh surgical wound exposed to air. [place] mittens, wrist restaints and vest in place as pt continuously squirms around and sometimes pulls at the surgical dressings. Dimitri SCDs applied. Laboratory Results - last 24 hr 02/25/17 02/26/17 02/26/17 08:50 06:10 06:10 WBC 14.8 H RBC 3.51 L Hgb 11.4 L Hct 32.9 L MCV 93.6 MCH 32.4 MCHC 34.6 RDW 13.5 Plt Count 326 MPV 9.0 Sodium Potassium Chloride Carbon Dioxide Anion Gap BUN Creatinine Creat Clearance w eGFR POC Glucometer Random Glucose Hemoglobin A1c % 5.5 Calcium Total Bilirubin AST ALT Alkaline Phosphatase Total Protein Albumin Ur Leukocyte Esterase Negative 02/26/17 02/26/17 06:10 06:48 WBC RBC Hgb Hct MCV MCH MCHC RDW Plt Count MPV Sodium 144 Potassium 4.0 D Chloride 106 Carbon Dioxide 25 Anion Gap 13 BUN 13 D Creatinine 1.0 Creat Clearance w eGFR > 60 POC Glucometer 124.92081 Random Glucose 124 H D Hemoglobin A1c % Calcium 7.7 L Total Bilirubin 0.9 D AST 27 D ALT 23 D Alkaline Phosphatase 70 Total Protein 6.4 Albumin 2.3 L D Ur Leukocyte Esterase Active Medications Generic Name Dose Route Start Last Admin Trade Name Freq PRN Reason Stop Dose Admin Acetaminophen 650 mg 02/21/17 20:01 02/26/17 14:36 Tylenol Oral Solution - PO 650 mg Q6H PRN Administration FEVER OR PAIN Allopurinol 100 mg 02/22/17 17:28 02/26/17 10:17 Zyloprim - PEG 100 mg DAILY JUNIOR Administration Amlodipine Besylate 10 mg 02/23/17 16:45 02/26/17 10:17 Norvasc - PEG 10 mg DAILY JUNIOR Administration Aspirin 81 mg 02/23/17 10:00 02/26/17 10:17 Asa - PEG 81 mg DAILY JUNIOR Administration Bacitracin 1 applic 02/26/17 11:15 02/26/17 14:37 Bacitracin - TP 1 applic BID JUNIOR Administration Ciprofloxacin 1 drop 02/23/17 18:45 02/26/17 10:18 Ciloxan 0.3% Eye Drops - OD 1 drop DAILY JUNIOR Administration Folic Acid 1 mg 02/21/17 10:00 02/26/17 10:17 Folic Acid - PO 1 mg DAILY JUNIOR Administration Heparin Sodium (Porcine) 5,000 unit 02/21/17 14:00 02/26/17 14:36 Heparin - SQ 5,000 unit TID JUNIOR Administration Hydromorphone HCl 1 mg 02/26/17 13:48 Dilaudid Injection - IVPUSH Q4H PRN PAIN Potassium Chloride/Sodium Chloride 1,000 mls @ 100 mls/hr 02/24/17 17:09 12/04 21:07 1/2ns+20meq Kcl IV 100 mls/hr ASDIR JUNIOR Administration Vancomycin HCl 1,500 mg/ 500 mls @ 166.667 mls/hr 02/25/17 11:30 02/26/17 10: 29 Dextrose IVPB 166.667 mls/hr Q12H JUNIOR Administration Piperacillin Sod/Tazobactam 100 mls @ 200 mls/hr 02/25/17 11:00 02/26/17 10: 17 Sod 4.5 gm/ Dextrose IVPB 200 mls/hr Q8H-IV JUNIOR Administration Lorazepam 2 mg 02/26/17 09:00 02/26/17 14:46 Ativan Injection - IVPUSH 2 mg Q6H-IV JUNIOR Administration Multivitamins/Minerals/Vitamin C 1 tab 02/21/17 10:00 02/26/17 10:17 Tab-A-Vit - PO 1 tab DAILY JUNIOR Administration Sodium Chloride 2 spray 02/23/17 18:40 02/23/17 21:55 [place] Nasal [place] - NS 2 spray BID PRN Administration NASAL CONGESTION ASSESSMENT/PLAN: 56yo M with PMH of nicotine dependence, Right lung CA, CAD with 2 stents, htn, hld, gout, presented with worsening cough and sputum production and admitted to med-surg for lung resection, 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 Gilmore as outpatient 3) leukocytosis - mild, continue to monitor - new blood cultures (-) x 24 hrs - urine culture (+) for nonlactose fermenting Gnb - can d/c vanco in AM if cultures negative 4) CAD s/p 2 stents - resume ASA through G-tube 5) htn - elevated 2/2 pain - continue Norvasc 6) gout - continue Allopurinol 7) FEN - Fluids: 1/2NS+20meq/L KCl @ 100 ml/hr - Electolytes: wnl, continue to monitor. - Nutrition: Osmolite @ 30 ml/hr, plus 10 ml/hr water in addition to tube feeding 8) Prophylaxis - DVT ppx with Heparin 5,000U SQ TID Visit type - Emergency Visit Emergency Visit: Yes ED Registration Date: 02/11/17 Care time: The patient presented to the Emergency Department on the above date and was hospitalized for further evaluation of their emergent condition. - New Patient This patient is new to me today: No - Critical Care Critical Care patient: Yes Total Critical Care Time (in minutes): 35 Critical Care Statement: The care of this patient involved high complexity decision making to prevent further life threatening deterioration of the patient 's condition and/or to evaluate & treat vital organ system(s) failure or risk of failure.
[2017-02-26] MEDS: SODIUM CHLORIDE 0.45%/POT 1,000 ML IV SCH (18:41)
--- NOTE | 2017-02-26 20:40 | PN ---
Teaching Attending Note Name of Resident: Gloria Zaldivar ATTENDING PHYSICIAN STATEMENT I saw and evaluated the patient. I reviewed the resident's note and discussed the case with the resident. I agree with the resident's findings and plan as documented. SUBJECTIVE: Patient is agitated and confused. OBJECTIVE: Vital Signs Temperature 99.9 F H 02/26/17 16:00 Pulse Rate 74 02/26/17 18:00 Respiratory Rate 13 02/26/17 18:00 Blood Pressure 120/79 02/26/17 18:00 O2 Sat by Pulse Oximetry (%) 100 02/26/17 17:32 CBCD WBC 14.8 K/mm3 (4.0-10.0) H 02/26/17 06:10 RBC 3.51 M/mm3 (4.00-5.60) L 02/26/17 06:10 Hgb 11.4 GM/dL (11.7-16.9) L 02/26/17 06:10 Hct 32.9 % (35.4-49) L 02/26/17 06:10 MCV 93.6 fl (80-96) 02/26/17 06:10 MCHC 34.6 g/dl (32.0-35.9) 02/26/17 06:10 RDW 13.5 % (11.9-15.9) 02/26/17 06:10 Plt Count 326 K/MM3 (134-434) 02/26/17 06:10 MPV 9.0 fl (7.5-11.1) 02/26/17 06:10 CMP Sodium 144 mmol/L (136-145) 02/26/17 06:10 Potassium 4.0 mmol/L (3.5-5.1) D 02/26/17 06:10 Chloride 106 mmol/L (98-107) 02/26/17 06:10 Carbon Dioxide 25 mmol/L (21-32) 02/26/17 06:10 Anion Gap 13 (8-16) 02/26/17 06:10 BUN 13 mg/dL (7-18) D 02/26/17 06:10 Creatinine 1.0 mg/dL (0.7-1.3) 02/26/17 06:10 Creat Clearance w eGFR > 60 (>60) 02/26/17 06:10 Random Glucose 124 mg/dL (74-106) H D 02/26/17 06:10 Calcium 7.7 mg/dL (8.5-10.1) L 02/26/17 06:10 Total Bilirubin 0.9 mg/dL (0.2-1.0) D 02/26/17 06:10 AST 27 U/L (15-37) D 02/26/17 06:10 ALT 23 U/L (12-78) D 02/26/17 06:10 Alkaline Phosphatase 70 U/L (45-117) 02/26/17 06:10 Total Protein 6.4 g/dl (6.4-8.2) 02/26/17 06:10 Albumin 2.3 g/dl (3.4-5.0) L D 02/26/17 06:10 CARDIAC ENZYMES Creatine Kinase 71 IU/L (39-308) 02/11/17 10:24 Troponin I < 0.02 ng/ml (0.00-0.05) 02/11/17 10:24 Current Medications Generic Name Dose Route Start Last Admin Trade Name Vin PRN Reason Stop Dose Admin Acetaminophen 650 mg 02/21/17 20:01 02/26/17 14:36 Tylenol Oral Solution - PO 650 mg Q6H PRN Administration FEVER OR PAIN Allopurinol 100 mg 02/22/17 17:28 02/26/17 10:17 Zyloprim - PEG 100 mg DAILY JUNIOR Administration Amlodipine Besylate 10 mg 02/23/17 16:45 02/26/17 10:17 Norvasc - PEG 10 mg DAILY JUNIOR Administration Aspirin 81 mg 02/23/17 10:00 02/26/17 10:17 Asa - PEG 81 mg DAILY JUNIOR Administration Bacitracin 1 applic 02/26/17 11:15 02/26/17 14:37 Bacitracin - TP 1 applic BID JUNIOR Administration Ciprofloxacin 1 drop 02/23/17 18:45 02/26/17 10:18 Ciloxan 0.3% Eye Drops - OD 1 drop DAILY JUNIOR Administration Folic Acid 1 mg 02/21/17 10:00 02/26/17 10:17 Folic Acid - PO 1 mg DAILY JUNIOR Administration Heparin Sodium (Porcine) 5,000 unit 02/21/17 14:00 02/26/17 14:36 Heparin - SQ 5,000 unit TID JUNIOR Administration Hydromorphone HCl 1 mg 02/26/17 13:48 Dilaudid Injection - IVPUSH Q4H PRN PAIN Potassium Chloride/Sodium Chloride 1,000 mls @ 100 mls/hr 02/24/17 17:09 01/04 18:41 1/2ns+20meq Kcl IV 100 mls/hr ASDIR JUNIOR Administration Vancomycin HCl 1,500 mg/ 500 mls @ 166.667 mls/hr 02/25/17 11:30 02/26/17 10: 29 Dextrose IVPB 166.667 mls/hr Q12H JUNIOR Administration Piperacillin Sod/Tazobactam 100 mls @ 200 mls/hr 02/25/17 11:00 02/26/17 19: 06 Sod 4.5 gm/ Dextrose IVPB 200 mls/hr Q8H-IV JUNIOR Administration Lorazepam 2 mg 02/26/17 09:00 02/26/17 14:46 Ativan Injection - IVPUSH 2 mg Q6H-IV JUNIOR Administration Multivitamins/Minerals/Vitamin C 1 tab 02/21/17 10:00 02/26/17 10:17 Tab-A-Vit - PO 1 tab DAILY JUNIOR Administration Sodium Chloride 2 spray 02/23/17 18:40 02/23/17 21:55 [place] Nasal [place] - NS 2 spray BID PRN Administration NASAL CONGESTION Home Medications Medication Instructions Recorded Amlodipine Besylate 10 mg PO DAILY 12/23/16 Atorvastatin Ca [Lipitor] 10 mg PO HS 12/23/16 Gabapentin 800 mg PO TID 12/23/16 Quetiapine Fumarate "Xr" [Seroquel 300 mg PO ACDIN 12/23/16 Xr -] Sertraline HCl [Zoloft] 100 mg PO BID 12/23/16 Folic Acid 1 mg PO DAILY 01/02/17 Allopurinol [Zyloprim -] 100 mg PO DAILY 02/12/17 Aspirin [ASA -] 81 mg PO DAILY 02/12/17 PE: per resident's note ASSESSMENT AND PLAN: 56 y/o gentleman with h/o Nicotine dependence, HTn, CAD s/p Stenting , hyperlipidemia and recently diagnosed R lung adenocarcinoma who presented for pulmonary resection. 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 #Lung cancer : s/p wedge resection # HTN -cont norvasc # JOSE: resolved # Acute blood loss anemia: stable HB # CAD : cont Aspirin through PEG DVT px with heparin
[2017-02-27] MEDS: PIPERACILLIN/TAZOB 4.5 GM 4.5 GM in DEXTROSE 5%-WATER - 100 ML IVPB SCH ×3 (02:21→17:04)
[2017-02-27] MEDS: LORazepam 2 MG/ML SDV VIAL IVPUSH SCH ×2 (02:22→08:57)
[2017-02-27 06:04] LABS: MCH 31.3 pg (25.7-33.7); MCHC 33.8 g/dl (32.0-35.9); MEAN CELL VOLUME 92.5 fl (80-96); MEAN PLT VOLUME 9.2 fl (7.5-11.1); PLATELET COUNT 329 K/MM3 (134-434); RDW 13.5 % (11.9-15.9); WHITE BLOOD COUNT 13.9 K/mm3 (4.0-10.0)
[2017-02-27] MEDS: HEPARIN NA (PORCINE) 5,000 UNITS/ML 1ML VIAL SQ SCH ×3 (06:44→21:40)
--- NOTE | 2017-02-27 07:23 | PN ---
Progress Note (short form) - Note Progress Note: POD #8 Alert. Yesterday, patient was very agitated and pulled out his internal doppler. Because of this, he was placed on 1:1 status and currently remains. Seems to be much more comfortable and less agitated this morning. Responding appropriately by shaking his head to yes/no questions. GT feeds were started yesterday at 30/hr --> tolerating, no vomiting. Denies pain, fever or chills. Last Vital Signs Temp Pulse Resp BP Pulse Ox 98.9 F 86 20 138/54 96 02/27/17 06:00 02/27/17 06:00 02/27/17 06:00 02/27/17 06:00 02/26/17 20:00 CBC, BMP 02/27/17 05:45 02/26/17 06:10 OUTPUT 02/26/17 02/26/17 02/26/17 02/27/17 02/27/17 06:00 18:37 23:00 00:07 06:00 Left ANNA 10 15 10 10 Right ANNA 5 10 10 5 [place] [phone] Microbiology 02/24/17 21:30 Blood - Peripheral Venous Blood Culture - Preliminary NO GROWTH AFTER 48 HOURS, INCUBATION TO CONTINUE FOR 3 DAYS. 02/24/17 21:30 Blood - Peripheral Venous Blood Culture - Preliminary NO GROWTH AFTER 48 HOURS, INCUBATION TO CONTINUE FOR 3 DAYS. 02/25/17 11:20 Urine - Urine [place] Urine Culture - Preliminary Non Lactose Fermenting Gnb PE General: nad Neck: demond intact. erythema resolving. ANNA x 2 on bulb suction (output decreasing). No palpable hematoma. Tracheostome is patent ABD: Midline demond c/d/i. No erythema. GT patent : [place] clear LE: Right: STSG donor site is clean --> xeroform dressing intact. Left: Appears that graft has taken --> adherent to wound bed. SCDs bilat. No tenderness/swelling Problem List - Problems (1) Laryngeal cancer Assessment/Plan: POD #8 s/p laryngopharyngectomy, bilateral neck dissection, anterolateral thigh free flap reconstruction Cont 1:1 until patient no longer agitated Monitor ANNA output ANNA drains to be removed once output < 20cc/day Suction tracheostome if any secretions are detected and at least twice daily empirically Continue SQ heparin and aspirin Continue bedside PT Continue standing ativan and prn dilaudid Once he becomes less agitated and more cooperative we should get him out of bed and perform vigorous PT [place] to remain until patient is oob and more aware Dr. Cullen is covering for Dr. Bledsoe until 03/02
[2017-02-27] MEDS: ASPIRIN 81 MG CHEWABLE TABLETS PEG SCH (09:03)
[2017-02-27] MEDS: ALLOPURINOL 100 MG TABLET (FP) PEG SCH (09:04)
[2017-02-27] MEDS: FOLIC ACID 1 MG TABLET (FP) PO SCH (09:04)
[2017-02-27] MEDS: amLODIPine BESYLATE 10 MG TABLET (FP) PEG SCH (09:04)
[2017-02-27] MEDS: MULTIVITAMINS (DAILY MVI) TABLET (FP) PO SCH (09:04)
[2017-02-27] MEDS: ACETAMINOPHEN 650 MG/20.3 ML ORAL SOLUTION (CUPS) PO PRN (09:05)
[2017-02-27] MEDS: CIPROFLOXACIN 0.3% EYE DROPS 5 ML BOTTLE OD SCH (09:07)
--- NOTE | 2017-02-27 10:57 | PN ---
Progress Note (short form) - Note Progress Note: flap viable continue managing tube feeds and sedation
[2017-02-27] MEDS: BACITRACIN 15 GM TUBE TOPICAL OINTMENT TP SCH ×2 (11:49→21:39)
[2017-02-27] MEDS ORDERED: HALOPERIDOL 1 MG TABLET (FP) GT ONE (11:50)
--- NOTE | 2017-02-27 11:50 | EKG ---
Test Reason : Blood Pressure : / mmHG Vent. Rate : 093 BPM Atrial Rate : 093 BPM P-R Int : 150 ms QRS Dur : 082 ms QT Int : 344 ms P-R-T Axes : 032 -10 009 degrees QTc Int : 427 ms SINUS RHYTHM WITH PREMATURE ATRIAL COMPLEXES INFERIOR INFARCT , AGE UNDETERMINED ABNORMAL ECG WHEN COMPARED WITH ECG OF 23-FEB-2017 22:26, PREMATURE ATRIAL COMPLEXES ARE NOW PRESENT Confirmed by TONIO CHRISTIANSON MD ([id number]) on 02/27/2017 11:50:39 AM Referred By: Confirmed By:TONIO CHRISTIANSON MD
[2017-02-27] MEDS ORDERED: HALOPERIDOL 1 MG TABLET (FP) GT PRN (11:56)
[2017-02-27] MEDS ORDERED: HALOPERIDOL 0.5 MG TABLET PO ONE (12:00)
[2017-02-27] MEDS ORDERED: HALOPERIDOL PO PRN ×2 (12:02→12:15)
[2017-02-27] MEDS ORDERED: HALOPERIDOL GT PRN (12:15)
--- NOTE | 2017-02-27 15:38 | PN ---
Physical Exam: SUBJECTIVE: Patient seen and examined at bedside. 24 hr events -pt with copious secretions from tracheostome site, required repetitive suctioning -intermittent agitations, required chelsy and 1:1 sitter Today -pt OBJECTIVE: Vital Signs Period Temp Pulse Resp BP Sys/Clay Pulse Ox Last 24 Hr 98.6 F-99.9 F 72-100 13-32 101-160/54-91 95-100 GENERAL: The patient is awake, alert, and fully oriented, in no acute distress. HEAD: Normal with no signs of trauma. EYES: PERRL, extraocular movements intact, sclera anicteric, conjunctiva clear. No ptosis. ENT: Ears normal, nares patent, oropharynx clear without exudates, moist mucous membranes. NECK: Trachea midline, full range of motion, supple. LUNGS: Breath sounds equal, clear to auscultation bilaterally, no wheezes, no crackles, no accessory muscle use. HEART: Regular rate and rhythm, S1, S2 without murmur, rub or gallop. ABDOMEN: Soft, nontender, nondistended, normoactive bowel sounds, no guarding, no rebound, no hepatosplenomegaly, no masses. EXTREMITIES: 2+ pulses, warm, well-perfused, no edema. NEUROLOGICAL: Cranial nerves II through XII grossly intact. Normal speech, gait not observed. PSYCH: Normal mood, normal affect. SKIN: Warm, dry, normal turgor, no rashes or lesions noted Laboratory Results - last 24 hr 02/27/17 02/27/17 02/27/17 05:45 07:01 11:27 WBC 13.9 H RBC 3.41 L Hgb 10.7 L Hct 31.6 L MCV 92.5 MCH 31.3 MCHC 33.8 RDW 13.5 Plt Count 329 MPV 9.2 POC Glucometer 122.02305 144.32207 Active Medications Generic Name Dose Route Start Last Admin Trade Name Freq PRN Reason Stop Dose Admin Acetaminophen 650 mg 02/21/17 20:01 02/27/17 09:05 Tylenol Oral Solution - PO 650 mg Q6H PRN Administration FEVER OR PAIN Allopurinol 100 mg 02/22/17 17:28 02/27/17 09:04 Zyloprim - PEG 100 mg DAILY JUNIOR Administration Amlodipine Besylate 10 mg 02/23/17 16:45 02/27/17 09:04 Norvasc - PEG 10 mg DAILY JUNIOR Administration Aspirin 81 mg 02/23/17 10:00 02/27/17 09:03 Asa - PEG 81 mg DAILY JUNIOR Administration Bacitracin 1 applic 02/26/17 11:15 02/27/17 11:49 Bacitracin - TP 1 applic BID JUNIOR Administration Ciprofloxacin 1 drop 02/23/17 18:45 02/27/17 09:07 Ciloxan 0.3% Eye Drops - OD 1 drop DAILY JUNIOR Administration Folic Acid 1 mg 02/21/17 10:00 02/27/17 09:04 Folic Acid - PO 1 mg DAILY JUNIOR Administration Haloperidol 2 mg/ Haloperidol 2.5 mg 02/27/17 12:15 02/27/17 13:17 0.5 mg GT 2.5 mg Q6H PRN Administration AGITATION Heparin Sodium (Porcine) 5,000 unit 02/21/17 14:00 02/27/17 13:19 Heparin - SQ 5,000 unit TID JUNIOR Administration Hydromorphone HCl 1 mg 02/26/17 13:48 02/26/17 19:00 Dilaudid Injection - IVPUSH 1 mg Q4H PRN Administration PAIN Potassium Chloride/Sodium Chloride 1,000 mls @ 100 mls/hr 02/24/17 17:09 01/04 18:41 1/2ns+20meq Kcl IV 100 mls/hr ASDIR JUNIOR Administration Piperacillin Sod/Tazobactam 100 mls @ 200 mls/hr 02/25/17 11:00 02/27/17 09: 04 Sod 4.5 gm/ Dextrose IVPB 200 mls/hr Q8H-IV JUNIOR Administration Multivitamins/Minerals/Vitamin C 1 tab 02/21/17 10:00 02/27/17 09:04 Tab-A-Vit - PO 1 tab DAILY JUNIOR Administration Sodium Chloride 2 spray 02/23/17 18:40 02/23/17 21:55 [place] Nasal [place] - NS 2 spray BID PRN Administration NASAL CONGESTION ASSESSMENT/PLAN:
[2017-02-27] MEDS: SODIUM CHLORIDE 0.45%/POT 1,000 ML IV SCH ×2 (15:40→21:36)
--- NOTE | 2017-02-27 15:44 | PN ---
Physical Exam: SUBJECTIVE: Patient seen and examined at bedside. 24 hr events -pt with copious amounts of secretions from tracheostome site overnight, suctioned -due to agitation, 1:[address] -otherwise afebrile, no acute events overnight Today -pt desat during rounds to high 70's, suctioned from tracheostome site, improved -responsive, able to nod yes and no to questions. improvement from prior -agitated, put on haldol PRN instead of ativan OBJECTIVE: I's and O's: ~4L in, ~2L out Lines and tubes: ANNA drains b/l - neck, IV line, on IV 1/2NS+20mEq KCl Trach collar settings: 50% Fi02 Chest tube removed (02/23/17) extubated (02/23/17) Vital Signs Period Temp Pulse Resp BP Sys/Clay Pulse Ox Last 24 Hr 98.6 F-99.9 F 72-100 13-32 101-160/54-92 95-100 GENERAL: The patient is intermittently confused, in no acute distress. HEAD: Normal with no signs of trauma. EYES: PERRL, extraocular movements intact, sclera anicteric, conjunctiva clear. NECK: trachea midline, neck less erythematous, surgical incisions-healing well, without drainage LUNGS: Breath sounds equal, clear to auscultation bilaterally, no wheezes, no crackles, no accessory muscle use. HEART: Regular rate and rhythm, S1, S2 without murmur, rub or gallop. ABDOMEN: Soft, nontender, nondistended, normoactive bowel sounds, no guarding, no rebound, no hepatosplenomegaly, no masses. EXTREMITIES: 2+ posterior tibial pulses, warm, well-perfused, no edema. NEUROLOGICAL: difficult to assess as pt is confused. requiring 1:1 sitter Laboratory Results - last 24 hr 02/27/17 02/27/17 02/27/17 05:45 07:01 11:27 WBC 13.9 H RBC 3.41 L Hgb 10.7 L Hct 31.6 L MCV 92.5 MCH 31.3 MCHC 33.8 RDW 13.5 Plt Count 329 MPV 9.2 POC Glucometer 122.24302 144.28118 Active Medications Generic Name Dose Route Start Last Admin Trade Name Freq PRN Reason Stop Dose Admin Acetaminophen 650 mg 02/21/17 20:01 02/27/17 09:05 Tylenol Oral Solution - PO 650 mg Q6H PRN Administration FEVER OR PAIN Allopurinol 100 mg 02/22/17 17:28 02/27/17 09:04 Zyloprim - PEG 100 mg DAILY JUNIOR Administration Amlodipine Besylate 10 mg 02/23/17 16:45 02/27/17 09:04 Norvasc - PEG 10 mg DAILY JUNIOR Administration Aspirin 81 mg 02/23/17 10:00 02/27/17 09:03 Asa - PEG 81 mg DAILY JUNIOR Administration Bacitracin 1 applic 02/26/17 11:15 02/27/17 11:49 Bacitracin - TP 1 applic BID JUNIOR Administration Ciprofloxacin 1 drop 02/23/17 18:45 02/27/17 09:07 Ciloxan 0.3% Eye Drops - OD 1 drop DAILY JUNIOR Administration Folic Acid 1 mg 02/21/17 10:00 02/27/17 09:04 Folic Acid - PO 1 mg DAILY JUNIOR Administration Haloperidol 2 mg/ Haloperidol 2.5 mg 02/27/17 12:15 02/27/17 13:17 0.5 mg GT 2.5 mg Q6H PRN Administration AGITATION Heparin Sodium (Porcine) 5,000 unit 02/21/17 14:00 02/27/17 13:19 Heparin - SQ 5,000 unit TID JUNIOR Administration Hydromorphone HCl 1 mg 02/26/17 13:48 02/26/17 19:00 Dilaudid Injection - IVPUSH 1 mg Q4H PRN Administration PAIN Potassium Chloride/Sodium Chloride 1,000 mls @ 100 mls/hr 02/24/17 17:09 02/03 15:40 1/2ns+20meq Kcl IV 100 mls/hr ASDIR JUNIOR Administration Piperacillin Sod/Tazobactam 100 mls @ 200 mls/hr 02/25/17 11:00 02/27/17 09: 04 Sod 4.5 gm/ Dextrose IVPB 200 mls/hr Q8H-IV JUNIOR Administration Multivitamins/Minerals/Vitamin C 1 tab 02/21/17 10:00 02/27/17 09:04 Tab-A-Vit - PO 1 tab DAILY JUNIOR Administration Sodium Chloride 2 spray 02/23/17 18:40 11/06/17 21:55 [place] Nasal [place] - NS 2 spray BID PRN Administration NASAL CONGESTION ASSESSMENT/PLAN: This is a 56 y/o M with h/o Nicotine dependence, HTN, CAD s/p Stenting , HLD and recently diagnosed R lung adenocarcinoma, who presented for pulmonary resection. 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 Pt managed in ICU post-op. Today is Day7. HEAD AND NECK #s/p laryngectomy (PO Day 7) 2/2 laryngeal SCC -on trach collar Fi02 50%, sat well -Pt's surgical incisions healing well, drains intact. -Will continue to follow ANNA drain output, is not yet <20cc, therefore have not been removed -as per Dr. Olivares, doppler assessment no longer needed for flap, however checked this AM -Pain control: has been changed to dilaudid 1mg q4hr -ativan order has been changed to standing haldol PRN, avoid hypoventilation -continue Bacitracin PRN on LE -Followed by Dr. Bledsoe -OOB to chair, will follow PT recs RENAL #Hypernatremia-resolved #Hypokalemia-resolved PULM -incentive spirometry to prevent post-op atelectasis -Duonebs 1 amp QID ID -UA-: checked as pt was febrile earlier this wk -UCx: growing enterobacter -started on vanc and zosyn (Today is Day3) -Will follow ID recs DETOX -pt has extensive alcoholic hx -continue Folic acid, MTV PROPHYLAXIS DVT: Heparin 5000 U SQ TID F/E/N -currently on 1/2NS +20 mEq KCl -will follow electrolytes, especially Na, K -tube feeds DISPOSITION -Continued ICU management -will f/u PT recommendations, OOB to chair Visit type - Emergency Visit Emergency Visit: No - New Patient This patient is new to me today: No - Critical Care Critical Care patient: Yes Total Critical Care Time (in minutes): 42 Critical Care Statement: The care of this patient involved high complexity decision making to prevent further life threatening deterioration of the patient 's condition and/or to evaluate & treat vital organ system(s) failure or risk of failure.
[2017-02-27] MEDS ORDERED: HYDROmorphone HCL CARPU-JECT 2 MG/1 ML DISP.SYRIN ONE (16:17)
[2017-02-27] MEDS: HYDROmorphone HCL CARPU-JECT 1 MG/1 ML DISP.SYRIN IVPUSH PRN (16:19)
[2017-02-27] MEDS ORDERED: HALOPERIDOL LACTATE 5 MG/ML IM ONE (17:28)
[2017-02-27] MEDS ORDERED: HALOPERIDOL LACTATE 5 MG/ML ONE (17:31)
[2017-02-27] MEDS ORDERED: LORazepam 2 MG/ML SDV VIAL IVPUSH ONE (18:09)
[2017-02-27] MEDS ORDERED: LORazepam 2 MG/ML SDV VIAL ONE (18:11)
--- NOTE | 2017-02-27 18:50 | PN ---
Physical Exam: SUBJECTIVE: Patient seen and examined. Pt continues to have agitation intermittently. Pt attempted to write a message for me, but was unable to write legibly. No events overnight. OBJECTIVE: Vital Signs Period Temp Pulse Resp BP Sys/Clay Pulse Ox Last 24 Hr 98.6 F-99.1 F 82-102 14-32 125-160/54-115 95-96 GENERAL: The patient is awake and alert. NECK: Incisions to neck with staple closure noted. [place] intact. Flap viable. ANNA drains x 2 draining serosanguinous fluid. LUNGS: Breath sounds equal, clear to anterior auscultation bilaterally, no wheezes, no crackles, no accessory muscle use. HEART: Regular rate and rhythm, +S1/S2. ABDOMEN: Soft, nondistended, (+) bowel sounds x 4. G-tube in place. EXTREMITIES: Warm, well-perfused, no edema. Surgical dressing to Left anterior thigh intact, Right thigh surgical wound exposed to air. Restraints in place. Dimitri SCDs applied. Laboratory Results - last 24 hr 02/25/17 02/27/17 02/27/17 12:52 02:13 05:45 WBC 13.9 H RBC 3.41 L Hgb 10.7 L Hct 31.6 L MCV 92.5 MCH 31.3 MCHC 33.8 RDW 13.5 Plt Count 329 MPV 9.2 POC Glucometer [id number] 142.50501 02/27/17 02/27/17 07:01 11:27 WBC RBC Hgb Hct MCV MCH MCHC RDW Plt Count MPV POC Glucometer 122.25046 144.24961 Active Medications Generic Name Dose Route Start Last Admin Trade Name Swapnilq PRN Reason Stop Dose Admin Acetaminophen 650 mg 02/21/17 20:01 02/27/17 09:05 Tylenol Oral Solution - PO 650 mg Q6H PRN Administration FEVER OR PAIN Allopurinol 100 mg 02/22/17 17:28 02/27/17 09:04 Zyloprim - PEG 100 mg DAILY JUNIOR Administration Amlodipine Besylate 10 mg 02/23/17 16:45 02/27/17 09:04 Norvasc - PEG 10 mg DAILY JUNIOR Administration Aspirin 81 mg 02/23/17 10:00 02/27/17 09:03 Asa - PEG 81 mg DAILY JUNIOR Administration Bacitracin 1 applic 02/26/17 11:15 11/10/17 11:49 Bacitracin - TP 1 applic BID JUNIOR Administration Ciprofloxacin 1 drop 02/23/17 18:45 02/27/17 09:07 Ciloxan 0.3% Eye Drops - OD 1 drop DAILY JUNIOR Administration Folic Acid 1 mg 02/21/17 10:00 02/27/17 09:04 Folic Acid - PO 1 mg DAILY JUNIOR Administration Haloperidol 2 mg/ Haloperidol 2.5 mg 02/27/17 12:15 02/27/17 13:17 0.5 mg GT 2.5 mg Q6H PRN Administration AGITATION Heparin Sodium (Porcine) 5,000 unit 02/21/17 14:00 02/27/17 13:19 Heparin - SQ 5,000 unit TID JUNIOR Administration Hydromorphone HCl 1 mg 02/26/17 13:48 02/27/17 16:19 Dilaudid Injection - IVPUSH 1 mg Q4H PRN Administration PAIN Potassium Chloride/Sodium Chloride 1,000 mls @ 100 mls/hr 02/24/17 17:09 02/03 15:40 1/2ns+20meq Kcl IV 100 mls/hr ASDIR JUNIOR Administration Piperacillin Sod/Tazobactam 100 mls @ 200 mls/hr 02/25/17 11:00 02/27/17 17: 04 Sod 4.5 gm/ Dextrose IVPB 200 mls/hr Q8H-IV JUNIOR Administration Multivitamins/Minerals/Vitamin C 1 tab 02/21/17 10:00 02/27/17 09:04 Tab-A-Vit - PO 1 tab DAILY JUNIOR Administration Sodium Chloride 2 spray 02/23/17 18:40 02/23/17 21:55 [place] Nasal [place] - NS 2 spray BID PRN Administration NASAL CONGESTION ASSESSMENT/PLAN: 56yo M with PMH of nicotine dependence, Right lung CA, CAD with 2 stents, htn, hld, gout, presented with worsening cough and sputum production and admitted to med-surg for lung resection, 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 Gilmore as outpatient 3) leukocytosis - mild, continue to monitor - new blood cultures (-) x 48 hrs - urine culture (+) for Enterobacter Cl[place]acae - Vancomycin D/Michael - Day 3 of IV Zosyn 4) CAD s/p 2 stents - resume ASA through G-tube 5) htn - elevated 2/2 pain - continue Norvasc 6) gout - continue Allopurinol 7) FEN - Fluids: 1/2NS+20meq/L KCl @ 100 ml/hr - Electolytes: wnl, continue to monitor. - Nutrition: Jevity 1.5 @ 30 ml/hr, plus 10 ml/hr water in addition to tube feeding 8) Prophylaxis - DVT ppx with Heparin 5,000U SQ TID - deconditioning ppx with bedside PT Visit type - Emergency Visit Emergency Visit: Yes ED Registration Date: 02/11/17 Care time: The patient presented to the Emergency Department on the above date and was hospitalized for further evaluation of their emergent condition. - New Patient This patient is new to me today: No - Critical Care Critical Care patient: Yes Total Critical Care Time (in minutes): 35 Critical Care Statement: The care of this patient involved high complexity decision making to prevent further life threatening deterioration of the patient 's condition and/or to evaluate & treat vital organ system(s) failure or risk of failure.
--- NOTE | 2017-02-27 19:19 | PN ---
Teaching Attending Note Name of Resident: Gloria Zladivar ATTENDING PHYSICIAN STATEMENT I saw and evaluated the patient. I reviewed the resident's note and discussed the case with the resident. I agree with the resident's findings and plan as documented. SUBJECTIVE: No acute distress, agitation on and off. OBJECTIVE: Vital Signs Temperature 99 F 02/27/17 17:43 Pulse Rate 102 H 02/27/17 18:01 Respiratory Rate 28 H 02/27/17 18:01 Blood Pressure 158/115 02/27/17 18:01 O2 Sat by Pulse Oximetry (%) 95 02/27/17 14:10 CBCD WBC 13.9 K/mm3 (4.0-10.0) H 02/27/17 05:45 RBC 3.41 M/mm3 (4.00-5.60) L 02/27/17 05:45 Hgb 10.7 GM/dL (11.7-16.9) L 02/27/17 05:45 Hct 31.6 % (35.4-49) L 02/27/17 05:45 MCV 92.5 fl (80-96) 02/27/17 05:45 MCHC 33.8 g/dl (32.0-35.9) 02/27/17 05:45 RDW 13.5 % (11.9-15.9) 02/27/17 05:45 Plt Count 329 K/MM3 (134-434) 02/27/17 05:45 MPV 9.2 fl (7.5-11.1) 02/27/17 05:45 CMP Sodium 144 mmol/L (136-145) 02/26/17 06:10 Potassium 4.0 mmol/L (3.5-5.1) D 02/26/17 06:10 Chloride 106 mmol/L (98-107) 02/26/17 06:10 Carbon Dioxide 25 mmol/L (21-32) 02/26/17 06:10 Anion Gap 13 (8-16) 02/26/17 06:10 BUN 13 mg/dL (7-18) D 02/26/17 06:10 Creatinine 1.0 mg/dL (0.7-1.3) 02/26/17 06:10 Creat Clearance w eGFR > 60 (>60) 02/26/17 06:10 Random Glucose 124 mg/dL (74-106) H D 02/26/17 06:10 Calcium 7.7 mg/dL (8.5-10.1) L 02/26/17 06:10 Total Bilirubin 0.9 mg/dL (0.2-1.0) D 02/26/17 06:10 AST 27 U/L (15-37) D 02/26/17 06:10 ALT 23 U/L (12-78) D 02/26/17 06:10 Alkaline Phosphatase 70 U/L (45-117) 02/26/17 06:10 Total Protein 6.4 g/dl (6.4-8.2) 02/26/17 06:10 Albumin 2.3 g/dl (3.4-5.0) L D 02/26/17 06:10 CARDIAC ENZYMES Creatine Kinase 71 IU/L (39-308) 02/11/17 10:24 Troponin I < 0.02 ng/ml (0.00-0.05) 02/11/17 10:24 Current Medications Generic Name Dose Route Start Last Admin Trade Name Vin PRN Reason Stop Dose Admin Acetaminophen 650 mg 02/21/17 20:01 02/27/17 09:05 Tylenol Oral Solution - PO 650 mg Q6H PRN Administration FEVER OR PAIN Allopurinol 100 mg 02/22/17 17:28 02/27/17 09:04 Zyloprim - PEG 100 mg DAILY JUNIOR Administration Amlodipine Besylate 10 mg 02/23/17 16:45 02/27/17 09:04 Norvasc - PEG 10 mg DAILY JUNIOR Administration Aspirin 81 mg 02/23/17 10:00 02/27/17 09:03 Asa - PEG 81 mg DAILY JUNIOR Administration Bacitracin 1 applic 02/26/17 11:15 02/27/17 11:49 Bacitracin - TP 1 applic BID JUNIOR Administration Ciprofloxacin 1 drop 02/23/17 18:45 02/27/17 09:07 Ciloxan 0.3% Eye Drops - OD 1 drop DAILY JUNIOR Administration Folic Acid 1 mg 02/21/17 10:00 02/27/17 09:04 Folic Acid - PO 1 mg DAILY JUNIOR Administration Haloperidol 2 mg/ Haloperidol 2.5 mg 02/27/17 12:15 02/27/17 13:17 0.5 mg GT 2.5 mg Q6H PRN Administration AGITATION Heparin Sodium (Porcine) 5,000 unit 02/21/17 14:00 02/27/17 13:19 Heparin - SQ 5,000 unit TID JUNIOR Administration Hydromorphone HCl 1 mg 02/26/17 13:48 02/27/17 16:19 Dilaudid Injection - IVPUSH 1 mg Q4H PRN Administration PAIN Potassium Chloride/Sodium Chloride 1,000 mls @ 100 mls/hr 02/24/17 17:09 02/03 15:40 1/2ns+20meq Kcl IV 100 mls/hr ASDIR JUNIOR Administration Piperacillin Sod/Tazobactam 100 mls @ 200 mls/hr 02/25/17 11:00 02/27/17 17: 04 Sod 4.5 gm/ Dextrose IVPB 200 mls/hr Q8H-IV JUNIOR Administration Multivitamins/Minerals/Vitamin C 1 tab 02/21/17 10:00 02/27/17 09:04 Tab-A-Vit - PO 1 tab DAILY JUNIOR Administration Sodium Chloride 2 spray 02/23/17 18:40 02/23/17 21:55 [place] Nasal [place] - NS 2 spray BID PRN Administration NASAL CONGESTION Home Medications Medication Instructions Recorded Amlodipine Besylate 10 mg PO DAILY 12/23/16 Atorvastatin Ca [Lipitor] 10 mg PO HS 12/23/16 Gabapentin 800 mg PO TID 12/23/16 Quetiapine Fumarate "Xr" [Seroquel 300 mg PO ACDIN 12/23/16 Xr -] Sertraline HCl [Zoloft] 100 mg PO BID 12/23/16 Folic Acid 1 mg PO DAILY 01/02/17 Allopurinol [Zyloprim -] 100 mg PO DAILY 02/12/17 Aspirin [ASA -] 81 mg PO DAILY 02/12/17 PE: Per resident's note ASSESSMENT AND PLAN: 56 y/o gentleman with h/o Nicotine dependence, HTn, CAD s/p Stenting , hyperlipidemia and recently diagnosed R lung adenocarcinoma who presented for pulmonary resection. 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 # POD#9 Laryngeal SCC s/p larynegectomy , with flap reconstruction , Plastics on the case : of mechanical vent, continue IVF , cont. feeding. # Agitation, patient was started on Haldol #Lung cancer : s/p wedge resection # HTN -cont norvasc # JOSE: resolved # Acute blood loss anemia: stable HB # CAD : cont Aspirin through PEG DVT px with heparin
[2017-02-28] MEDS ORDERED: ALBUTEROL SO4 0.083% IH SOL 2.5 MG/3 ML VIAL.NEB. NEB ONE ×2 (01:51→02:00)
[2017-02-28] MEDS: PIPERACILLIN/TAZOB 4.5 GM 4.5 GM in DEXTROSE 5%-WATER - 100 ML IVPB SCH ×3 (02:00→18:30)
[2017-02-28] MEDS ORDERED: HALOPERIDOL 5 MG TABLET (FP) PO PRN (02:12)
[2017-02-28] MEDS ORDERED: HYDROmorphone HCL CARPU-JECT 2 MG/1 ML DISP.SYRIN IVPUSH PRN (02:17)
[2017-02-28] MEDS: HALOPERIDOL 5 MG TABLET (FP) GT PRN (02:21)
[2017-02-28] MEDS ORDERED: HALOPERIDOL LACTATE 5 MG/ML ONE (05:03)
[2017-02-28] MEDS ORDERED: HALOPERIDOL LACTATE 5 MG/ML IM ONE (05:15)
[2017-02-28] MEDS: chlordiazePOXIDE HCL 25 MG CAPSULE PEG SCH ×4 (06:21→22:42)
[2017-02-28] MEDS: HEPARIN NA (PORCINE) 5,000 UNITS/ML 1ML VIAL SQ SCH ×3 (06:21→22:18)
[2017-02-28 06:33] LABS: BASO % 1.1 % (0-2.0); EOS % 9.2 % (0-4.5); MCH 31.2 pg (25.7-33.7); MCHC 33.9 g/dl (32.0-35.9); MEAN CELL VOLUME 91.8 fl (80-96); MEAN PLT VOLUME 9.4 fl (7.5-11.1); NEUT % 70.8 % (42.8-82.8); PLATELET COUNT 384 K/MM3 (134-434); RDW 13.7 % (11.9-15.9); WHITE BLOOD COUNT 12.2 K/mm3 (4.0-10.0)
[2017-02-28 07:18] LABS: ANION GAP 10 (8-16); CALCIUM 7.7 mg/dL (8.5-10.1); CO2 24 mmol/L (21-32); CREATININE 0.9 mg/dL (0.7-1.3); GLUCOSE,RANDOM 119 mg/dL (74-106); MAGNESIUM 1.8 mg/dL (1.8-2.4); PHOSPHOROUS 3.2 mg/dL (2.5-4.9)
[2017-02-28] MEDS ORDERED: PT OWN MED DRAWER 7, Y5N ONE ×2 (10:05→11:43)
[2017-02-28] MEDS: ALLOPURINOL 100 MG TABLET (FP) PEG SCH (10:08)
[2017-02-28] MEDS: ASPIRIN 81 MG CHEWABLE TABLETS PEG SCH (10:08)
[2017-02-28] MEDS: amLODIPine BESYLATE 10 MG TABLET (FP) PEG SCH (10:08)
--- NOTE | 2017-02-28 10:08 | PN ---
Progress Note (short form) - Note Progress Note: PULMONARY/CCM Pt seen and examined in the ICU. Less agitated today. Saturating well on trach collar. No fevers recorded. Last Vital Signs Temp Pulse Resp BP Pulse Ox 98.2 F 90 20 125/85 95 02/28/17 02:00 02/28/17 06:00 02/28/17 06:00 02/28/17 06:00 02/28/17 01:59 Intake & Output 02/25/17 02/26/17 02/27/17 02/28/17 23:59 23:59 23:59 23:59 Intake Total 4905 3053 3730 2450 Output Total 2530 60 3255 740 Balance 2375 2993 475 1710 Weight 226 lb 9.6 oz 220 lb 3.869 oz 221 lb 6.4 oz 220 lb 1.6 oz Gen: less agitated Heart: RRR Lung: decreased breath sounds at the bases Abd: soft, nontender Ext: no edema CBC, BMP 02/28/17 05:38 02/28/17 05:38 Active Medications Acetaminophen (Tylenol Oral Solution -) 650 mg PO Q6H PRN PRN Reason: FEVER OR PAIN Last Admin: 02/27/17 09:05 Dose: 650 mg Allopurinol (Zyloprim -) 100 mg PEG DAILY [facility] Last Admin: 02/27/17 09:04 Dose: 100 mg Amlodipine Besylate (Norvasc -) 10 mg PEG DAILY [facility] Last Admin: 02/27/17 09:04 Dose: 10 mg Aspirin (Asa -) 81 mg PEG DAILY [facility] Last Admin: 02/27/17 09:03 Dose: 81 mg Bacitracin (Bacitracin -) 1 applic TP BID [facility] Last Admin: 02/27/17 21:39 Dose: 1 applic Chlordiazepoxide HCl (Librium -) 25 mg PEG [id number] [facility] Last Admin: 02/28/17 06:21 Dose: 25 mg Ciprofloxacin (Ciloxan 0.3% Eye Drops -) 1 drop OD DAILY [facility] Last Admin: 02/27/17 09:07 Dose: 1 drop Folic Acid (Folic Acid -) 1 mg PO DAILY [facility] Last Admin: 02/27/17 09:04 Dose: 1 mg Haloperidol (Haldol -) 2.5 mg GT Q6H PRN PRN Reason: AGITATION Last Admin: 02/28/17 02:21 Dose: 2.5 mg Heparin Sodium (Porcine) (Heparin -) 5,000 unit SQ TID JUNIOR Last Admin: 02/28/17 06:21 Dose: 5,000 unit Hydromorphone HCl (Dilaudid Injection -) 1 mg IVPUSH Q4H PRN PRN Reason: PAIN Potassium Chloride/Sodium Chloride (1/2ns+20meq Kcl) 1,000 mls @ 100 mls/hr IV ASDIR JUNIOR Last Admin: 02/27/17 21:36 Dose: Not Given Piperacillin Sod/Tazobactam (Sod 4.5 gm/ Dextrose) 100 mls @ 200 mls/hr IVPB Q8H-IV JUNIOR Last Admin: 02/28/17 02:00 Dose: 200 mls/hr Multivitamins/Minerals/Vitamin C (Tab-A-Vit -) 1 tab PO DAILY JUNIOR Last Admin: 02/27/17 09:04 Dose: 1 tab Sodium Chloride ([place] -) 2 spray NS BID PRN PRN Reason: NASAL CONGESTION Last Admin: 02/23/17 21:55 Dose: 2 spray A/P NSCLC - Adenocarcinoma s/p R VATS/Wedge Resection/CT placement now removed 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 HTN CAD Alcohol Abuse/Dependence Fever - r/o Pneumonia - continue empiric antibiotics - will d/c antibiotics once final cultures negative - pain control - continue IVF - monitor lytes - monitor drainage - enteral feeds as tolerated - aspiration precautions - DVT prophylaxis - continue ICU monitoring critical care time spent in reviewing chart, evaluating patient and formulating plan 35 min
[2017-02-28] MEDS: FOLIC ACID 1 MG TABLET (FP) PO SCH (10:09)
[2017-02-28] MEDS: MULTIVITAMINS (DAILY MVI) TABLET (FP) PO SCH (10:09)
[2017-02-28] MEDS: BACITRACIN 15 GM TUBE TOPICAL OINTMENT TP SCH ×2 (10:09→22:18)
--- NOTE | 2017-02-28 10:51 | PN ---
Progress Note, Physician - Current Medication List Current Medications: Active Medications Acetaminophen (Tylenol Oral Solution -) 650 mg PO Q6H PRN PRN Reason: FEVER OR PAIN Last Admin: 02/27/17 09:05 Dose: 650 mg Allopurinol (Zyloprim -) 100 mg PEG DAILY [facility] Last Admin: 02/28/17 10:08 Dose: 100 mg Amlodipine Besylate (Norvasc -) 10 mg PEG DAILY [facility] Last Admin: 02/28/17 10:08 Dose: 10 mg Aspirin (Asa -) 81 mg PEG DAILY [facility] Last Admin: 02/28/17 10:08 Dose: 81 mg Bacitracin (Bacitracin -) 1 applic TP BID [facility] Last Admin: 02/28/17 10:09 Dose: 1 applic Chlordiazepoxide HCl (Librium -) 25 mg PEG [id number] [facility] Last Admin: 02/28/17 10:09 Dose: 25 mg Ciprofloxacin (Ciloxan 0.3% Eye Drops -) 1 drop OD DAILY [facility] Last Admin: 02/27/17 09:07 Dose: 1 drop Folic Acid (Folic Acid -) 1 mg PO DAILY [facility] Last Admin: 02/28/17 10:09 Dose: 1 mg Haloperidol (Haldol -) 2.5 mg GT Q6H PRN PRN Reason: AGITATION Last Admin: 02/28/17 02:21 Dose: 2.5 mg Heparin Sodium (Porcine) (Heparin -) 5,000 unit SQ TID [facility] Last Admin: 02/28/17 06:21 Dose: 5,000 unit Hydromorphone HCl (Dilaudid Injection -) 1 mg IVPUSH Q4H PRN PRN Reason: PAIN Potassium Chloride/Sodium Chloride (1/2ns+20meq Kcl) 1,000 mls @ 100 mls/hr IV ASDIR [facility] Last Admin: 02/27/17 21:36 Dose: Not Given Piperacillin Sod/Tazobactam (Sod 4.5 gm/ Dextrose) 100 mls @ 200 mls/hr IVPB Q8H-IV [facility] Last Admin: 02/28/17 02:00 Dose: 200 mls/hr Multivitamins/Minerals/Vitamin C (Tab-A-Vit -) 1 tab PO DAILY [facility] Last Admin: 02/28/17 10:09 Dose: 1 tab Sodium Chloride ([place] -) 2 spray NS BID PRN PRN Reason: NASAL CONGESTION Last Admin: 02/23/17 21:55 Dose: 2 spray - Objective Vital Signs: Vital Signs Temperature 98.2 F 02/28/17 02:00 Pulse Rate 90 02/28/17 06:00 Respiratory Rate 20 02/28/17 06:00 Blood Pressure 125/85 02/28/17 06:00 O2 Sat by Pulse Oximetry (%) 95 02/28/17 01:59 Labs: CBC, BMP 02/28/17 05:38 02/28/17 05:38 INR, PTT INR 0.98 (0.82-1.09) 02/16/17 05:35 Assessment/Plan Surgery: patient is very responsive today, responds appropriately. Afebrile, WBC is normal. The flaps are viable. Minimal serous drainage from drains. Will keep drain until patient has been started on oral feeding, (liquids). Continue G-tube feeding. Tracheostomy . stoma adeqyate with , no secretions. Trach collar with humidification in puse. DVt prophylaxis. Mobilise patient.
[2017-02-28] MEDS: CIPROFLOXACIN 0.3% EYE DROPS 5 ML BOTTLE OD SCH (11:49)
[2017-02-28] MEDS: SODIUM CHLORIDE 0.45%/POT 1,000 ML IV SCH (17:27)
--- NOTE | 2017-02-28 18:20 | PN ---
Physical Exam: SUBJECTIVE: Patient seen and examined Patient responds better today but agitated. In Icu. OBJECTIVE: Vital Signs Temperature 99.7 F H 02/28/17 13:24 Pulse Rate 101 H 02/28/17 13:24 Respiratory Rate 26 H 02/28/17 13:24 Blood Pressure 159/74 02/28/17 13:24 O2 Sat by Pulse Oximetry (%) 95 02/28/17 10:00 GENERAL: The patient is awake, but alert, and fully oriented, in no acute distress. HEAD: Normal with no signs of trauma. EYES: PERRL, extraocular movements intact, sclera anicteric, conjunctiva clear. ENT: Neck: demond intact. erythema resolving. 2 JPs, less output. No palpable hematoma. Tracheostome is patent LUNGS: decreased Breath sounds BL, no wheezes, no crackles, no accessory muscle use. HEART: tachycardic, rate of 101, S1, S2 positivee, No rub or gallop. ABDOMEN: Soft, nontender, nondistended, normoactive bowel sounds, no guarding, no rebound, no hepatosplenomegaly, no masses. EXTREMITIES: Right:donor site is clean --> xeroform dressing intact. Left: Appears that graft is adherent to wound bed. SCDs bilat. No tenderness/swelling NEUROLOGICAL: Cranial nerves II through XII grossly intact. gait not observed. SKIN: Warm, dry, normal turgor, no rashes or lesions noted : [place] clear CBCD WBC 12.2 K/mm3 (4.0-10.0) H 02/28/17 05:38 RBC 3.38 M/mm3 (4.00-5.60) L 02/28/17 05:38 Hgb 10.5 GM/dL (11.7-16.9) L 02/28/17 05:38 Hct 31.0 % (35.4-49) L 02/28/17 05:38 MCV 91.8 fl (80-96) 02/28/17 05:38 MCHC 33.9 g/dl (32.0-35.9) 02/28/17 05:38 RDW 13.7 % (11.9-15.9) 02/28/17 05:38 Plt Count 384 K/MM3 (134-434) 02/28/17 05:38 MPV 9.4 fl (7.5-11.1) 02/28/17 05:38 CMP Sodium 143 mmol/L (136-145) 02/28/17 05:38 Potassium 3.5 mmol/L (3.5-5.1) 02/28/17 05:38 Chloride 109 mmol/L (98-107) H 02/28/17 05:38 Carbon Dioxide 24 mmol/L (21-32) 02/28/17 05:38 Anion Gap 10 (8-16) 02/28/17 05:38 BUN 10 mg/dL (7-18) D 02/28/17 05:38 Creatinine 0.9 mg/dL (0.7-1.3) 02/28/17 05:38 Creat Clearance w eGFR > 60 (>60) 02/26/17 06:10 Random Glucose 119 mg/dL (74-106) H 02/28/17 05:38 Calcium 7.7 mg/dL (8.5-10.1) L 02/28/17 05:38 Total Bilirubin 0.9 mg/dL (0.2-1.0) D 02/26/17 06:10 AST 27 U/L (15-37) D 02/26/17 06:10 ALT 23 U/L (12-78) D 02/26/17 06:10 Alkaline Phosphatase 70 U/L (45-117) 02/26/17 06:10 Total Protein 6.4 g/dl (6.4-8.2) 02/26/17 06:10 Albumin 2.3 g/dl (3.4-5.0) L D 02/26/17 06:10 CARDIAC ENZYMES Creatine Kinase 71 IU/L (39-308) 02/11/17 10:24 Troponin I < 0.02 ng/ml (0.00-0.05) 02/11/17 10:24 Home Medications Medication Instructions Recorded Amlodipine Besylate 10 mg PO DAILY 12/23/16 Atorvastatin Ca [Lipitor] 10 mg PO HS 12/23/16 Gabapentin 800 mg PO TID 12/23/16 Quetiapine Fumarate "Xr" [Seroquel 300 mg PO ACDIN 12/23/16 Xr -] Sertraline HCl [Zoloft] 100 mg PO BID 12/23/16 Folic Acid 1 mg PO DAILY 01/02/17 Allopurinol [Zyloprim -] 100 mg PO DAILY 02/12/17 Aspirin [ASA -] 81 mg PO DAILY 02/12/17 Active Medications Generic Name Dose Route Start Last Admin Trade Name Freq PRN Reason Stop Dose Admin Acetaminophen 650 mg 02/21/17 20:01 02/27/17 09:05 Tylenol Oral Solution - PO 650 mg Q6H PRN Administration FEVER OR PAIN Allopurinol 100 mg 02/22/17 17:28 02/28/17 10:08 Zyloprim - PEG 100 mg DAILY JUNIOR Administration Amlodipine Besylate 10 mg 02/23/17 16:45 02/28/17 10:08 Norvasc - PEG 10 mg DAILY JUNIOR Administration Aspirin 81 mg 02/23/17 10:00 02/28/17 10:08 Asa - PEG 81 mg DAILY JUNIOR Administration Bacitracin 1 applic 02/26/17 11:15 02/28/17 10:09 Bacitracin - TP 1 applic BID JUINOR Administration Chlordiazepoxide HCl 25 mg 02/28/17 05:45 02/28/17 17:27 Librium - PEG 25 mg [id number] JUNIOR Administration Ciprofloxacin 1 drop 02/23/17 18:45 02/28/17 11:49 Ciloxan 0.3% Eye Drops - OD 1 drop DAILY JUNIOR Administration Folic Acid 1 mg 02/21/17 10:00 02/28/17 10:09 Folic Acid - PO 1 mg DAILY JUNIOR Administration Haloperidol 2.5 mg 02/28/17 02:14 02/28/17 02:21 Haldol - GT 2.5 mg Q6H PRN Administration AGITATION Heparin Sodium (Porcine) 5,000 unit 02/21/17 14:00 02/28/17 15:00 Heparin - SQ 5,000 unit TID JUNIOR Administration Hydromorphone HCl 1 mg 02/28/17 02:17 Dilaudid Injection - IVPUSH Q4H PRN PAIN Potassium Chloride/Sodium Chloride 1,000 mls @ 100 mls/hr 02/24/17 17:09 03/06 17:27 1/2ns+20meq Kcl IV 100 mls/hr ASDIR JUNIOR Administration Piperacillin Sod/Tazobactam 100 mls @ 200 mls/hr 02/25/17 11:00 02/28/17 11: 49 Sod 4.5 gm/ Dextrose IVPB 200 mls/hr Q8H-IV JUNIOR Administration Multivitamins/Minerals/Vitamin C 1 tab 02/21/17 10:00 02/28/17 10:09 Tab-A-Vit - PO 1 tab DAILY [facility]UNIOR Administration Sodium Chloride 2 spray 02/23/17 18:40 02/23/17 21:55 [place] Nasal [place] - NS 2 spray BID PRN Administration NASAL CONGESTION Microbiology 02/24/17 21:30 Blood - Peripheral Venous Blood Culture - Preliminary NO GROWTH OBTAINED AFTER 96 HOURS, INCUBATION TO CONTINUE FOR 1 DAYS. 02/24/17 21:30 Blood - Peripheral Venous Blood Culture - Preliminary NO GROWTH OBTAINED AFTER 96 HOURS, INCUBATION TO CONTINUE FOR 1 DAYS. 02/25/17 11:20 Urine - Urine [place] Urine Culture - Final Enterobacter Cloacae 02/11/17 10:15 Blood - Peripheral Venous Blood Culture - Final NO GROWTH AFTER 5 DAYS INCUBATION 02/11/17 10:15 Blood - Peripheral Venous Blood Culture - Final NO GROWTH AFTER 5 DAYS INCUBATION ASSESSMENT/PLAN: 56 y/o gentleman with h/o Nicotine dependence, HTn, CAD s/p Stenting , hyperlipidemia and recently diagnosed R lung adenocarcinoma who presented for pulmonary resection. 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 - Visit type - Emergency Visit Emergency Visit: Yes ED Registration Date: 02/11/17 Care time: The patient presented to the Emergency Department on the above date and was hospitalized for further evaluation of their emergent condition. - New Patient This patient is new to me today: No - Critical Care Critical Care patient: No
[2017-03-01] MEDS: PIPERACILLIN/TAZOB 4.5 GM 4.5 GM in DEXTROSE 5%-WATER - 100 ML IVPB SCH ×3 (03:27→17:45)
[2017-03-01] MEDS ORDERED: HYDROmorphone HCL CARPU-JECT 2 MG/1 ML DISP.SYRIN ONE (04:28)
[2017-03-01] MEDS: chlordiazePOXIDE HCL 25 MG CAPSULE PEG SCH ×4 (04:30→22:07)
[2017-03-01] MEDS ORDERED: HEMOQUE TEST 1 EACH EACH ONE (06:13)
[2017-03-01] MEDS: HEPARIN NA (PORCINE) 5,000 UNITS/ML 1ML VIAL SQ SCH ×3 (06:28→22:06)
[2017-03-01 06:42] LABS: BASO % 1.1 % (0-2.0); EOS % 7.9 % (0-4.5); MCH 30.8 pg (25.7-33.7); MCHC 33.5 g/dl (32.0-35.9); MEAN PLT VOLUME 9.1 fl (7.5-11.1); NEUT % 71.1 % (42.8-82.8); PLATELET COUNT 360 K/MM3 (134-434); RDW 13.9 % (11.9-15.9); WHITE BLOOD COUNT 12.2 K/mm3 (4.0-10.0)
[2017-03-01 07:16] LABS: ALBUMIN 2.1 g/dl (3.4-5.0); ALK PHOS 72 U/L (45-117); ANION GAP 11 (8-16); BILIRUBIN,TOTAL 0.4 mg/dL (0.2-1.0); CALCIUM 7.5 mg/dL (8.5-10.1); CO2 24 mmol/L (21-32); CREATININE 0.9 mg/dL (0.7-1.3); GLUCOSE,RANDOM 152 mg/dL (74-106); MAGNESIUM 1.8 mg/dL (1.8-2.4); PHOSPHOROUS 4.2 mg/dL (2.5-4.9); SGOT/AST 26 U/L (15-37); SGPT/ALT 27 U/L (12-78); TOT PROT 6.1 g/dl (6.4-8.2)
[2017-03-01] MEDS ORDERED: PT OWN MED DRAWER 7, Y5N ONE (09:00)
[2017-03-01] MEDS: ASPIRIN 81 MG CHEWABLE TABLETS PEG SCH (09:20)
[2017-03-01] MEDS: ALLOPURINOL 100 MG TABLET (FP) PEG SCH (09:20)
[2017-03-01] MEDS: MULTIVITAMINS (DAILY MVI) TABLET (FP) PO SCH (09:20)
[2017-03-01] MEDS: amLODIPine BESYLATE 10 MG TABLET (FP) PEG SCH (09:20)
[2017-03-01] MEDS: FOLIC ACID 1 MG TABLET (FP) PO SCH (09:20)
[2017-03-01] MEDS: BACITRACIN 15 GM TUBE TOPICAL OINTMENT TP SCH ×2 (09:21→22:06)
[2017-03-01] MEDS: CIPROFLOXACIN 0.3% EYE DROPS 5 ML BOTTLE OD SCH (09:22)
--- NOTE | 2017-03-01 09:38 | PN ---
Progress Note (short form) - Note Progress Note: PULMONARY/CCM Pt seen and examined in the ICU. Saturating well on trach collar. No fevers recorded. Tolerating enteral feeds. Last Vital Signs Temp Pulse Resp BP Pulse Ox 98.4 F 89 17 159/96 97 03/01/17 06:00 03/01/17 08:00 03/01/17 08:00 03/01/17 08:00 02/28/17 20:00 Intake & Output 02/26/17 02/27/17 02/28/17 03/01/17 23:59 23:59 23:59 23:59 Intake Total 3053 3730 4510 2380 Output Total 60 3255 757 25 Balance 2993 475 3753 2355 Weight 220 lb 3.869 oz 221 lb 6.4 oz 220 lb 1.6 oz 216 lb 3 oz Gen: less agitated Heart: RRR Lung: decreased breath sounds at the bases Abd: soft, nontender Ext: no edema CBC, BMP 03/01/17 05:30 03/01/17 05:30 Active Medications Acetaminophen (Tylenol Oral Solution -) 650 mg PO Q6H PRN PRN Reason: FEVER OR PAIN Last Admin: 02/27/17 09:05 Dose: 650 mg Allopurinol (Zyloprim -) 100 mg PEG DAILY [facility] Last Admin: 03/01/17 09:20 Dose: 100 mg Amlodipine Besylate (Norvasc -) 10 mg PEG DAILY [facility] Last Admin: 03/01/17 09:20 Dose: 10 mg Aspirin (Asa -) 81 mg PEG DAILY [facility] Last Admin: 03/01/17 09:20 Dose: 81 mg Bacitracin (Bacitracin -) 1 applic TP BID [facility] Last Admin: 03/01/17 09:21 Dose: 1 applic Chlordiazepoxide HCl (Librium -) 25 mg PEG [id number] [facility] Last Admin: 03/01/17 04:30 Dose: 25 mg Ciprofloxacin (Ciloxan 0.3% Eye Drops -) 1 drop OD DAILY [facility] Last Admin: 03/01/17 09:22 Dose: 1 drop Folic Acid (Folic Acid -) 1 mg PO DAILY [facility] Last Admin: 03/01/17 09:20 Dose: 1 mg Haloperidol (Haldol -) 2.5 mg GT Q6H PRN PRN Reason: AGITATION Last Admin: 02/28/17 02:21 Dose: 2.5 mg Heparin Sodium (Porcine) (Heparin -) 5,000 unit SQ TID [facility] Last Admin: 03/01/17 06:28 Dose: 5,000 unit Hydromorphone HCl (Dilaudid Injection -) 1 mg IVPUSH Q3H PRN PRN Reason: PAIN Potassium Chloride/Sodium Chloride (1/2ns+20meq Kcl) 1,000 mls @ 100 mls/hr IV ASDIR [facility] Last Admin: 02/28/17 17:27 Dose: 100 mls/hr Piperacillin Sod/Tazobactam (Sod 4.5 gm/ Dextrose) 100 mls @ 200 mls/hr IVPB Q8H-IV [facility] Last Admin: 03/01/17 09:21 Dose: 200 mls/hr Multivitamins/Minerals/Vitamin C (Tab-A-Vit -) 1 tab PO DAILY [facility] Last Admin: 03/01/17 09:20 Dose: 1 tab Sodium Chloride ([place] Nasal [place] -) 2 spray NS BID PRN PRN Reason: NASAL CONGESTION Last Admin: 02/23/17 21:55 Dose: 2 spray A/P NSCLC - Adenocarcinoma s/p R VATS/Wedge Resection/CT placement now removed 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
[2017-03-01] MEDS: HALOPERIDOL 5 MG TABLET (FP) GT PRN (11:38)
[2017-03-01] MEDS: HYDROmorphone HCL CARPU-JECT 2 MG/1 ML DISP.SYRIN IVPUSH PRN ×2 (11:52→22:07)
--- NOTE | 2017-03-01 15:21 | PN ---
Progress Note (short form) - Note Progress Note: Patient continues to be agitated but less than yesterday. Vital Signs Temperature 98.8 F 03/01/17 14:00 Pulse Rate 80 03/01/17 14:00 Respiratory Rate 11 L 03/01/17 14:00 Blood Pressure 122/73 03/01/17 14:00 O2 Sat by Pulse Oximetry (%) 96 03/01/17 11:00 GENERAL: The patient is awake, but alert, and fully oriented, in no acute distress. HEAD: Normal with no signs of trauma. EYES: PERRL, extraocular movements intact, sclera anicteric, conjunctiva clear. ENT: Neck: demond intact. erythema resolving. 2 JPs, less output today. No palpable hematoma. Tracheostome is patent LUNGS: decreased Breath sounds BL, no wheezes, no crackles, no accessory muscle use. HEART: RRR, S1, S2 positivee, No rub or gallop. ABDOMEN: Soft, nontender, nondistended, normoactive bowel sounds, no guarding, no rebound, no hepatosplenomegaly, no masses. EXTREMITIES: Right: donor site is clean, positive for xeroform dressing , Left : Appears that graft is adherent to wound bed. SCDs bilat. No tenderness/swelling , positive for mittens bl to prevent from pulling and hurting himself. NEUROLOGICAL: Cranial nerves II through XII grossly intact. gait not observed. SKIN: Warm, dry, normal turgor, no rashes or lesions noted : [place] clear CBCD WBC 12.2 K/mm3 (4.0-10.0) H 03/01/17 05:30 RBC 3.25 M/mm3 (4.00-5.60) L 03/01/17 05:30 Hgb 10.0 GM/dL (11.7-16.9) L 03/01/17 05:30 Hct 29.9 % (35.4-49) L 03/01/17 05:30 MCV 92.0 fl (80-96) 03/01/17 05:30 MCHC 33.5 g/dl (32.0-35.9) 03/01/17 05:30 RDW 13.9 % (11.9-15.9) 03/01/17 05:30 Plt Count 360 K/MM3 (134-434) 03/01/17 05:30 MPV 9.1 fl (7.5-11.1) 03/01/17 05:30 CMP Sodium 144 mmol/L (136-145) 03/01/17 05:30 Potassium 3.5 mmol/L (3.5-5.1) 03/01/17 05:30 Chloride 109 mmol/L (98-107) H 03/01/17 05:30 Carbon Dioxide 24 mmol/L (21-32) 03/01/17 05:30 Anion Gap 11 (8-16) 03/01/17 05:30 BUN 7 mg/dL (7-18) D 03/01/17 05:30 Creatinine 0.9 mg/dL (0.7-1.3) 03/01/17 05:30 Creat Clearance w eGFR > 60 (>60) 03/01/17 05:30 Random Glucose 152 mg/dL (74-106) H D 03/01/17 05:30 Calcium 7.5 mg/dL (8.5-10.1) L 03/01/17 05:30 Total Bilirubin 0.4 mg/dL (0.2-1.0) D 03/01/17 05:30 AST 26 U/L (15-37) 03/01/17 05:30 ALT 27 U/L (12-78) 03/01/17 05:30 Alkaline Phosphatase 72 U/L (45-117) 03/01/17 05:30 Total Protein 6.1 g/dl (6.4-8.2) L 03/01/17 05:30 Albumin 2.1 g/dl (3.4-5.0) L 03/01/17 05:30 CARDIAC ENZYMES Creatine Kinase 71 IU/L (39-308) 02/11/17 10:24 Troponin I < 0.02 ng/ml (0.00-0.05) 02/11/17 10:24 Home Medication List Medication Instructions Recorded Confirmed Type Amlodipine Besylate 10 mg PO DAILY 12/23/16 02/11/17 History Atorvastatin Ca [Lipitor] 10 mg PO HS 12/23/16 02/11/17 History Gabapentin 800 mg PO TID 12/23/16 02/12/17 History Quetiapine Fumarate "Xr" [Seroquel 300 mg PO ACDIN 12/23/16 02/11/17 History Xr -] Sertraline HCl [Zoloft] 100 mg PO BID 12/23/16 02/12/17 History Folic Acid 1 mg PO DAILY 01/02/17 02/11/17 History Allopurinol [Zyloprim -] 100 mg PO DAILY 02/12/17 02/12/17 History Aspirin [ASA -] 81 mg PO DAILY 02/12/17 02/12/17 History Active Medications Generic Name Dose Route Start Last Admin Trade Name Fre PRN Reason Stop Dose Admin Acetaminophen 650 mg 02/21/17 20:01 02/27/17 09:05 Tylenol Oral Solution - PO 650 mg Q6H PRN Administration FEVER OR PAIN Allopurinol 100 mg 02/22/17 17:28 03/01/17 09:20 Zyloprim - PEG 100 mg DAILY [facility] Administration Amlodipine Besylate 10 mg 02/23/17 16:45 03/01/17 09:20 Norvasc - PEG 10 mg DAILY [facility] Administration Aspirin 81 mg 02/23/17 10:00 03/01/17 09:20 Asa - PEG 81 mg DAILY [facility] Administration Bacitracin 1 applic 02/26/17 11:15 03/01/17 09:21 Bacitracin - TP 1 applic BID [facility] Administration Chlordiazepoxide HCl 25 mg 02/28/17 05:45 03/01/17 11:00 Librium - PEG 25 mg [id number] [facility] Administration Ciprofloxacin 1 drop 02/23/17 18:45 03/01/17 09:22 Ciloxan 0.3% Eye Drops - OD 1 drop DAILY [facility] Administration Folic Acid 1 mg 02/21/17 10:00 03/01/17 09:20 Folic Acid - PO 1 mg DAILY [facility] Administration Haloperidol 2.5 mg 02/28/17 02:14 03/01/17 11:38 Haldol - GT 2.5 mg Q6H PRN Administration AGITATION Heparin Sodium (Porcine) 5,000 unit 02/21/17 14:00 03/01/17 06:28 Heparin - SQ 5,000 unit TID [facility] Administration Hydromorphone HCl 1 mg 03/01/17 06:32 03/01/17 11:52 Dilaudid Injection - IVPUSH 1 mg Q3H PRN Administration PAIN Piperacillin Sod/Tazobactam 100 mls @ 200 mls/hr 11/08/17 11:00 03/01/17 09: 21 Sod 4.5 gm/ Dextrose IVPB 200 mls/hr Q8H-IV [facility] Administration Multivitamins/Minerals/Vitamin C 1 tab 02/21/17 10:00 03/01/17 09:20 Tab-A-Vit - PO 1 tab DAILY [facility] Administration Sodium Chloride 2 spray 02/23/17 18:40 02/23/17 21:55 [place] Nasal [place] - NS 2 spray BID PRN Administration NASAL CONGESTION Microbiology 02/24/17 21:30 Blood - Peripheral Venous Blood Culture - Preliminary NO GROWTH OBTAINED AFTER 96 HOURS, INCUBATION TO CONTINUE FOR 1 DAYS. 02/24/17 21:30 Blood - Peripheral Venous Blood Culture - Preliminary NO GROWTH OBTAINED AFTER 96 HOURS, INCUBATION TO CONTINUE FOR 1 DAYS. 02/25/17 11:20 Urine - Urine [place] Urine Culture - Final Enterobacter Cloacae 02/11/17 10:15 Blood - Peripheral Venous Blood Culture - Final NO GROWTH AFTER 5 DAYS INCUBATION 02/11/17 10:15 Blood - Peripheral Venous Blood Culture - Final NO GROWTH AFTER 5 DAYS INCUBATION A/P: 56 y/o gentleman with h/o Nicotine dependence, HTn, CAD s/p Stenting , hyperlipidemia and recently diagnosed R lung adenocarcinoma who presented for pulmonary resection. Also was found to have laryngeal SCC # POD#11 NSCLC - Adenocarcinoma s/p extubation , s/p R VATS/Wedge Resection # Laryngeal SCC with LN met s/p Pharyngolaryngectomy/Free Flap Reconstruction , Plastics on the case # Fever; resolved s/p IV Vanco and Zosyn since final culture is negative, was discontinued # Agitation, patient is placed on Haldol # HTN: cont norvasc # JOSE: resolved # Acute blood loss anemia: stable HB # CAD : cont Aspirin through PEG # Hx of Alcohol Abuse/Dependence # Nutrition : enteral feeding, aspiration precautions DVT px with heparin continue ICU monitoring. DNR paper is in the chart. Visit type - Emergency Visit Emergency Visit: Yes ED Registration Date: 02/11/17 Care time: The patient presented to the Emergency Department on the above date and was hospitalized for further evaluation of their emergent condition. - New Patient This patient is new to me today: No - Critical Care Critical Care patient: No
[2017-03-02] MEDS: PIPERACILLIN/TAZOB 4.5 GM 4.5 GM in DEXTROSE 5%-WATER - 100 ML IVPB SCH ×2 (02:00→10:34)
[2017-03-02] MEDS: HYDROmorphone HCL CARPU-JECT 2 MG/1 ML DISP.SYRIN IVPUSH PRN ×2 (02:18→20:20)
[2017-03-02] MEDS: SODIUM CHLORIDE 0.45%/POT 20 MEQ/1,000 ML INFUS.BAG IV SCH (03:00)
[2017-03-02] MEDS: chlordiazePOXIDE HCL 25 MG CAPSULE PEG SCH ×4 (05:06→22:40)
[2017-03-02] MEDS: HEPARIN NA (PORCINE) 5,000 UNITS/ML 1ML VIAL SQ SCH ×3 (06:01→22:40)
[2017-03-02 06:26] LABS: BASO % 1.3 % (0-2.0); EOS % 9.5 % (0-4.5); MCH 31.3 pg (25.7-33.7); MCHC 33.6 g/dl (32.0-35.9); MEAN CELL VOLUME 93.1 fl (80-96); MEAN PLT VOLUME 9.4 fl (7.5-11.1); NEUT % 66.9 % (42.8-82.8); PLATELET COUNT 442 K/MM3 (134-434); RDW 13.6 % (11.9-15.9); WHITE BLOOD COUNT 13.5 K/mm3 (4.0-10.0)
--- NOTE | 2017-03-02 07:17 | PN ---
Physical Exam: SUBJECTIVE: Patient seen and examined at bedside. Per nurse, pt had small episode of mild vomiting overnight. Pt complains of SOB today. Pulse ox at 100% . Good air entry. No other complaints. Multiple drains with serosang fluid. No purulent drains. Pt denies pain. Leukocytosis increased since previous. OBJECTIVE: Vital Signs Period Temp Pulse Resp BP Sys/Clay Pulse Ox Last 24 Hr 98.2 F-98.9 F 70-118 11-35 111-190/54-101 96-98 GENERAL: The patient is awake, alert, in no apparent distress, tachypnic. HEAD: Normal with no signs of trauma. EYES: extraocular movements intact, sclera anicteric, conjunctiva clear. No ptosis. ENT: oropharynx clear without exudates, moist mucous membranes. NECK: tracheostomy with trach collar in place. Neck drain LUNGS: good air entry b/l. tachypnea. HEART: Regular rate and rhythm, S1, S2 without murmur, rub or gallop. ABDOMEN: Soft, nontender, nondistended, normoactive bowel sounds, no guarding, no rebound, no hepatosplenomegaly, no masses. Incision site clean dry intact EXTREMITIES: 2+ pulses, warm, well-perfused, no edema. NEUROLOGICAL: Pt nonverbal. Can mouth words, somewhat PSYCH: Pt nonverbal SKIN: Warm, dry, normal turgor, no rashes or lesions noted Laboratory Results - last 24 hr 02/28/17 03/01/17 03/01/17 21:42 05:30 06:15 WBC RBC Hgb Hct MCV MCH MCHC RDW Plt Count MPV Neutrophils % Lymphocytes % Monocytes % Eosinophils % Basophils % Sodium 144 Potassium 3.5 Chloride 109 H Carbon Dioxide 24 Anion Gap 11 BUN 7 D Creatinine 0.9 Creat Clearance w eGFR > 60 POC Glucometer 152.14283 163.71145 Random Glucose 152 H D Calcium 7.5 L Phosphorus 4.2 D Magnesium 1.8 Total Bilirubin 0.4 D AST 26 ALT 27 Alkaline Phosphatase 72 Total Protein 6.1 L Albumin 2.1 L 03/01/17 03/02/17 03/02/17 17:51 06:00 06:05 WBC 13.5 H RBC 3.54 L Hgb 11.0 L Hct 32.9 L MCV 93.1 MCH 31.3 MCHC 33.6 RDW 13.6 Plt Count 442 H D MPV 9.4 Neutrophils % 66.9 Lymphocytes % 16.0 D Monocytes % 6.3 Eosinophils % 9.5 H Basophils % 1.3 Sodium Potassium Chloride Carbon Dioxide Anion Gap BUN Creatinine Creat Clearance w eGFR POC Glucometer [phone] Random Glucose Calcium Phosphorus Magnesium Total Bilirubin AST ALT Alkaline Phosphatase Total Protein Albumin Active Medications Generic Name Dose Route Start Last Admin Trade Name Freq PRN Reason Stop Dose Admin Acetaminophen 650 mg 02/21/17 20:01 02/27/17 09:05 Tylenol Oral Solution - PO 650 mg Q6H PRN Administration FEVER OR PAIN Allopurinol 100 mg 02/22/17 17:28 03/01/17 09:20 Zyloprim - PEG 100 mg DAILY [facility] Administration Amlodipine Besylate 10 mg 02/23/17 16:45 03/01/17 09:20 Norvasc - PEG 10 mg DAILY [facility] Administration Aspirin 81 mg 02/23/17 10:00 03/01/17 09:20 Asa - PEG 81 mg DAILY [facility] Administration Bacitracin 1 applic 02/26/17 11:15 03/01/17 22:06 Bacitracin - TP 1 applic BID [facility] Administration Chlordiazepoxide HCl 25 mg 02/28/17 05:45 03/02/17 05:06 Librium - PEG Not Given [id number] [facility] Ciprofloxacin 1 drop 02/23/17 18:45 03/01/17 09:22 Ciloxan 0.3% Eye Drops - OD 1 drop DAILY [facility] Administration Folic Acid 1 mg 02/21/17 10:00 03/01/17 09:20 Folic Acid - PO 1 mg DAILY [facility] Administration Haloperidol 2.5 mg 02/28/17 02:14 03/01/17 11:38 Haldol - GT 2.5 mg Q6H PRN Administration AGITATION Heparin Sodium (Porcine) 5,000 unit 02/21/17 14:00 03/02/17 06:01 Heparin - SQ 5,000 unit TID [facility] Administration Hydromorphone HCl 1 mg 03/01/17 06:32 03/02/17 02:18 Dilaudid Injection - IVPUSH 1 mg Q3H PRN Administration PAIN Piperacillin Sod/Tazobactam 100 mls @ 200 mls/hr 02/25/17 11:00 03/02/17 02: 00 Sod 4.5 gm/ Dextrose IVPB 200 mls/hr Q8H-IV [facility] Administration Potassium Chloride/Sodium Chloride 20 meq in 1,000 mls @ 100 mls/hr 03/02/17 05:30 03/02/17 03:00 1/2ns+20meq Kcl IV 100 mls/hr ASDIR [facility] Administration Multivitamins/Minerals/Vitamin C 1 tab 02/21/17 10:00 03/01/17 09:20 Tab-A-Vit - PO 1 tab DAILY [facility] Administration Sodium Chloride 2 spray 02/23/17 18:40 02/23/17 21:55 [place] Nasal [place] - NS 2 spray BID PRN Administration NASAL CONGESTION ASSESSMENT/PLAN: Pt is a 56M with PMH nicotine dependence, Right lung CA, CAD with 2 stents, htn , hld, gout, presented with worsening cough and sputum production and admitted to med-surg for lung resection, 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 #NSCLCA -AdenoCA w/ LN mets -s/p VATS w/ wedge resection #CA of larynx/pharynx -s/p pharyngectomy -free flap reconstruction -drains are functioning well -Tracheostomy requires occasional suctioning #Gtube leak overnight -confirm position today -KUB w/ contrast #HTN -Norvasc #ETOH abuse/dependence -Librium -Haldol -Pt given Ativan today as G tube was not usable #CAD -ASA #PPx -Heparin #Dispo -admitted to ICU for post-op recovery and monitoring Miguel Noriega MD PGY-1 ICU case discussed with attending Visit type - Emergency Visit Emergency Visit: No - New Patient This patient is new to me today: No - Critical Care Critical Care patient: No - Discharge Referral Referred to [facility] Med P.C.: No
[2017-03-02] MEDS ORDERED: PT OWN MED DRAWER 7, Y5N ONE (09:07)
[2017-03-02 09:19] LABS: ALBUMIN 2.4 g/dl (3.4-5.0); ALK PHOS 77 U/L (45-117); ANION GAP 9 (8-16); BILIRUBIN,TOTAL 0.4 mg/dL (0.2-1.0); CALCIUM 8.3 mg/dL (8.5-10.1); CO2 26 mmol/L (21-32); CREATININE 0.9 mg/dL (0.7-1.3); GLUCOSE,RANDOM 118 mg/dL (74-106); PHOSPHOROUS 3.5 mg/dL (2.5-4.9); SGOT/AST 24 U/L (15-37); SGPT/ALT 30 U/L (12-78); TOT PROT 6.7 g/dl (6.4-8.2)
[2017-03-02] MEDS: MULTIVITAMINS (DAILY MVI) TABLET (FP) PO SCH (10:22)
[2017-03-02] MEDS: ASPIRIN 81 MG CHEWABLE TABLETS PEG SCH (10:22)
[2017-03-02] MEDS: ALLOPURINOL 100 MG TABLET (FP) PEG SCH (10:22)
[2017-03-02] MEDS: amLODIPine BESYLATE 10 MG TABLET (FP) PEG SCH (10:22)
[2017-03-02] MEDS: FOLIC ACID 1 MG TABLET (FP) PO SCH (10:22)
[2017-03-02] MEDS: BACITRACIN 15 GM TUBE TOPICAL OINTMENT TP SCH ×2 (10:23→22:40)
[2017-03-02] MEDS: CIPROFLOXACIN 0.3% EYE DROPS 5 ML BOTTLE OD SCH (10:25)
[2017-03-02] MEDS ORDERED: LORazepam 2 MG/ML SDV VIAL ONE (11:37)
[2017-03-02] MEDS ORDERED: HALOPERIDOL LACTATE 5 MG/ML IM ONE (13:03)
[2017-03-02] MEDS ORDERED: HALOPERIDOL LACTATE 5 MG/ML ONE (13:08)
--- NOTE | 2017-03-02 14:09 | PN ---
Teaching Attending Note Name of Resident: Miguel Noriega ATTENDING PHYSICIAN STATEMENT I saw and evaluated the patient. I reviewed the resident's note and discussed the case with the resident. I agree with the resident's findings and plan as documented. SUBJECTIVE: Pt seen and examined in the ICU. Episode of vomiting overnight, feeds held. Pt appears less agitated, more oriented. No fevers recorded. OBJECTIVE: Last Vital Signs Temp Pulse Resp BP Pulse Ox 98.7 F 98 H 20 163/87 100 03/02/17 10:00 03/02/17 12:00 03/02/17 12:00 03/02/17 12:00 03/02/17 10:17 Intake & Output 02/27/17 02/28/17 03/01/17 03/02/17 23:59 23:59 23:59 23:59 Intake Total 3730 4510 3350 500 Output Total 3255 980 289 9754 Balance 475 3753 2725 -1420 Weight 221 lb 6.4 oz 220 lb 1.6 oz 216 lb 3 oz 217 lb 6.4 oz Gen: less agitated Heart: RRR Lung: decreased breath sounds at the bases Abd: soft, nontender, +G tube Ext: no edema, dressings dry CBC, BMP 03/02/17 06:00 03/02/17 06:00 Active Medications Acetaminophen (Tylenol Oral Solution -) 650 mg PO Q6H PRN PRN Reason: FEVER OR PAIN Last Admin: 02/27/17 09:05 Dose: 650 mg Allopurinol (Zyloprim -) 100 mg PEG DAILY [facility] Last Admin: 03/02/17 10:22 Dose: 100 mg Amlodipine Besylate (Norvasc -) 10 mg PEG DAILY [facility] Last Admin: 03/02/17 10:22 Dose: 10 mg Aspirin (Asa -) 81 mg PEG DAILY [facility] Last Admin: 03/02/17 10:22 Dose: 81 mg Bacitracin (Bacitracin -) 1 applic TP BID [facility] Last Admin: 03/02/17 10:23 Dose: 1 applic Chlordiazepoxide HCl (Librium -) 25 mg PEG [id number] [facility] Last Admin: 03/02/17 11:42 Dose: Not Given Ciprofloxacin (Ciloxan 0.3% Eye Drops -) 1 drop OD DAILY [facility] Last Admin: 03/02/17 10:25 Dose: 1 drop Folic Acid (Folic Acid -) 1 mg PO DAILY [facility] Last Admin: 03/02/17 10:22 Dose: 1 mg Haloperidol (Haldol -) 2.5 mg GT Q6H PRN PRN Reason: AGITATION Last Admin: 03/01/17 11:38 Dose: 2.5 mg Heparin Sodium (Porcine) (Heparin -) 5,000 unit SQ TID [facility] Last Admin: 03/02/17 06:01 Dose: 5,000 unit Hydromorphone HCl (Dilaudid Injection -) 1 mg IVPUSH Q3H PRN PRN Reason: PAIN Last Admin: 03/02/17 02:18 Dose: 1 mg Piperacillin Sod/Tazobactam (Sod 4.5 gm/ Dextrose) 100 mls @ 200 mls/hr IVPB Q8H-IV [facility] Last Admin: 03/02/17 10:34 Dose: 200 mls/hr Potassium Chloride/Sodium Chloride (1/2ns+20meq Kcl) 20 meq in 1,000 mls @ 100 mls/hr IV ASDIR [facility] Last Admin: 03/02/17 03:00 Dose: 100 mls/hr Multivitamins/Minerals/Vitamin C (Tab-A-Vit -) 1 tab PO DAILY [facility] Last Admin: 03/02/17 10:22 Dose: 1 tab Sodium Chloride ([place] Nasal [place] -) 2 spray NS BID PRN PRN Reason: NASAL CONGESTION Last Admin: 02/23/17 21:55 Dose: 2 spray ASSESSMENT AND PLAN: NSCLC - Adenocarcinoma s/p R VATS/Wedge Resection/CT placement now removed 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
--- NOTE | 2017-03-02 14:18 | PN ---
Progress Note (short form) - Note Progress Note: Patient seen today: POD11 for ALT flap to neck Doppler check of pedicle good with audible signals Donor site graft mostly adherent. all final demond on thigh removed Continue dressing changes on thigh with bacitracina and xeroform. ANNA management per Head and neck team.
--- NOTE | 2017-03-02 14:58 | PN ---
Physical Exam: SUBJECTIVE: Patient seen and examined. Pt continues to have intermittent agitation. Tmax of 102 at 8am yesterday. OBJECTIVE: Vital Signs Period Temp Pulse Resp BP Sys/Clay Pulse Ox Last 24 Hr 98.2 F-98.9 F 70-118 14-30 136-190/54-101 97-100 GENERAL: The patient is awake, alert, in no acute distress. HEAD: Normal with no signs of trauma. EYES: Extraocular movements intact, sclera anicteric, conjunctiva clear. No ptosis. ENT: Moist mucous membranes. NECK: [place] intact, erythema resolving. 2 JPs with serosanguinous drainage. Tracheostome is patent. LUNGS: Breath sounds equal, clear to anterior auscultation bilaterally, no wheezes, no crackles, no accessory muscle use. HEART: Regular rate and rhythm, +S1/S2. ABDOMEN: Soft, nontender, nondistended, normoactive bowel sounds, no guarding. EXTREMITIES: Warm, well-perfused, no edema. SCDs applied sheree. SKIN: Warm, dry, normal turgor, no rashes or lesions noted Laboratory Results - last 24 hr 03/01/17 03/02/17 03/02/17 17:51 06:00 06:00 WBC 13.5 H RBC 3.54 L Hgb 11.0 L Hct 32.9 L MCV 93.1 MCH 31.3 MCHC 33.6 RDW 13.6 Plt Count 442 H D MPV 9.4 Neutrophils % 66.9 Lymphocytes % 16.0 D Monocytes % 6.3 Eosinophils % 9.5 H Basophils % 1.3 Sodium 143 Potassium 4.1 Chloride 108 H Carbon Dioxide 26 Anion Gap 9 BUN 8 Creatinine 0.9 Creat Clearance w eGFR > 60 POC Glucometer 128.98454 Random Glucose 118 H D Calcium 8.3 L Phosphorus 3.5 Magnesium 2.0 Total Bilirubin 0.4 AST 24 ALT 30 Alkaline Phosphatase 77 Total Protein 6.7 Albumin 2.4 L 03/02/17 06:05 WBC RBC Hgb Hct MCV MCH MCHC RDW Plt Count MPV Neutrophils % Lymphocytes % Monocytes % Eosinophils % Basophils % Sodium Potassium Chloride Carbon Dioxide Anion Gap BUN Creatinine Creat Clearance w eGFR POC Glucometer [phone] Random Glucose Calcium Phosphorus Magnesium Total Bilirubin AST ALT Alkaline Phosphatase Total Protein Albumin Active Medications Generic Name Dose Route Start Last Admin Trade Name Freq PRN Reason Stop Dose Admin Acetaminophen 650 mg 02/21/17 20:01 02/27/17 09:05 Tylenol Oral Solution - PO 650 mg Q6H PRN Administration FEVER OR PAIN Allopurinol 100 mg 02/22/17 17:28 03/02/17 10:22 Zyloprim - PEG 100 mg DAILY JUNIOR Administration Amlodipine Besylate 10 mg 02/23/17 16:45 03/02/17 10:22 Norvasc - PEG 10 mg DAILY JUNIOR Administration Aspirin 81 mg 02/23/17 10:00 03/02/17 10:22 Asa - PEG 81 mg DAILY JUNIOR Administration Bacitracin 1 applic 02/26/17 11:15 03/02/17 10:23 Bacitracin - TP 1 applic BID JUNIOR Administration Chlordiazepoxide HCl 25 mg 02/28/17 05:45 03/02/17 11:42 Librium - PEG Not Given [id number] JUNIOR Ciprofloxacin 1 drop 02/23/17 18:45 03/02/17 10:25 Ciloxan 0.3% Eye Drops - OD 1 drop DAILY JUNIOR Administration Folic Acid 1 mg 02/21/17 10:00 03/02/17 10:22 Folic Acid - PO 1 mg DAILY JUNIOR Administration Haloperidol 2.5 mg 02/28/17 02:14 03/01/17 11:38 Haldol - GT 2.5 mg Q6H PRN Administration AGITATION Heparin Sodium (Porcine) 5,000 unit 02/21/17 14:00 03/02/17 14:17 Heparin - SQ 5,000 unit TID JUNIOR Administration Hydromorphone HCl 1 mg 03/01/17 06:32 03/02/17 02:18 Dilaudid Injection - IVPUSH 1 mg Q3H PRN Administration PAIN Piperacillin Sod/Tazobactam 100 mls @ 200 mls/hr 02/25/17 11:00 03/02/17 10: 34 Sod 4.5 gm/ Dextrose IVPB 200 mls/hr Q8H-IV JUNIOR Administration Potassium Chloride/Sodium Chloride 20 meq in 1,000 mls @ 100 mls/hr 03/02/17 05:30 03/02/17 03:00 1/2ns+20meq Kcl IV 100 mls/hr ASDIR JUNIOR Administration Multivitamins/Minerals/Vitamin C 1 tab 02/21/17 10:00 03/02/17 10:22 Tab-A-Vit - PO 1 tab DAILY JUNIOR Administration Sodium Chloride 2 spray 02/23/17 18:40 02/23/17 21:55 [place] Nasal [place] - NS 2 spray BID PRN Administration NASAL CONGESTION IMAGIN03/02/17 CXR -> little change from prior, widened mediastinum again noted. 03/02/17 ab xray -> ASSESSMENT/PLAN: 56yo M with PMH of nicotine dependence, Right lung CA, CAD with 2 stents, htn, hld, gout, presented with worsening cough and sputum production and admitted to med-surg for lung resection, 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 # Laryngeal squamous cell Ca s/p laryngectomy with left anterolateral thigh flap pharyngeal reconstruction on 02/20/17 - POD 11: Trach matured to skin, intact, patent, no secretions. Flap and tissues viable. - monitor ANNA output - serous. ANNA drains to be removed once output < 20ml/day - Donor site graft mostly adherent, all final demond on thigh removed. Dressing changes with bacitracin and xeroform. - suction tracheostome prn - aspiration precautions - OOB to chair as tolerated - Pt is intermittently agitated and requires restraints to prevent self harm - Haloperidol 2.5mg GT q6hr prn added for agitation - continue Dilaudid prn for pain # leukocytosis - mild, continue to monitor - new blood cultures (-) x 5 days - Day 6 of IV Zosyn, Zosyn D/Michael # CAD s/p 2 stents - ASA through G-tube # htn - continue Norvasc # gout - continue Allopurinol # hx of etoh abuse - Librium standing dose # 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 Gilmore as outpatient # FEN - Fluids: 1/2NS+20meq/L KCl @ 100 ml/hr, consider D/Cing IVFs if tube feeding is tolerated - Electolytes: wnl, continue to monitor. - Nutrition: Jevity 1.5 @ 30 ml/hr, plus 30 ml/hr water in addition to tube feeding # Prophylaxis - DVT ppx with Heparin 5,000U SQ TID - deconditioning ppx with bedside PT Visit type - Emergency Visit Emergency Visit: Yes ED Registration Date: 02/11/17 Care time: The patient presented to the Emergency Department on the above date and was hospitalized for further evaluation of their emergent condition. - New Patient This patient is new to me today: No - Critical Care Critical Care patient: Yes Total Critical Care Time (in minutes): 35 Critical Care Statement: The care of this patient involved high complexity decision making to prevent further life threatening deterioration of the patient 's condition and/or to evaluate & treat vital organ system(s) failure or risk of failure.
--- NOTE | 2017-03-02 16:11 | PN ---
Progress Note, Physician - Current Medication List Current Medications: Active Medications Acetaminophen (Tylenol Oral Solution -) 650 mg PO Q6H PRN PRN Reason: FEVER OR PAIN Last Admin: 02/27/17 09:05 Dose: 650 mg Allopurinol (Zyloprim -) 100 mg PEG DAILY [facility] Last Admin: 03/02/17 10:22 Dose: 100 mg Amlodipine Besylate (Norvasc -) 10 mg PEG DAILY [facility] Last Admin: 03/02/17 10:22 Dose: 10 mg Aspirin (Asa -) 81 mg PEG DAILY [facility] Last Admin: 03/02/17 10:22 Dose: 81 mg Bacitracin (Bacitracin -) 1 applic TP BID [facility] Last Admin: 03/02/17 10:23 Dose: 1 applic Chlordiazepoxide HCl (Librium -) 25 mg PEG [id number] [facility] Last Admin: 03/02/17 11:42 Dose: Not Given Ciprofloxacin (Ciloxan 0.3% Eye Drops -) 1 drop OD DAILY [facility] Last Admin: 03/02/17 10:25 Dose: 1 drop Folic Acid (Folic Acid -) 1 mg PO DAILY [facility] Last Admin: 03/02/17 10:22 Dose: 1 mg Haloperidol (Haldol -) 2.5 mg GT Q6H PRN PRN Reason: AGITATION Last Admin: 03/01/17 11:38 Dose: 2.5 mg Heparin Sodium (Porcine) (Heparin -) 5,000 unit SQ TID [facility] Last Admin: 03/02/17 14:17 Dose: 5,000 unit Hydromorphone HCl (Dilaudid Injection -) 1 mg IVPUSH Q3H PRN PRN Reason: PAIN Last Admin: 03/02/17 02:18 Dose: 1 mg Potassium Chloride/Sodium Chloride (1/2ns+20meq Kcl) 20 meq in 1,000 mls @ 100 mls/hr IV ASDIR [facility] Last Admin: 03/02/17 03:00 Dose: 100 mls/hr Multivitamins/Minerals/Vitamin C (Tab-A-Vit -) 1 tab PO DAILY [facility] Last Admin: 03/02/17 10:22 Dose: 1 tab Sodium Chloride ([place] Nasal [place] -) 2 spray NS BID PRN PRN Reason: NASAL CONGESTION Last Admin: 02/23/17 21:55 Dose: 2 spray - Objective Vital Signs: Vital Signs Temperature 98.6 F 03/02/17 14:00 Pulse Rate 100 H 03/02/17 14:00 Respiratory Rate 24 03/02/17 14:00 Blood Pressure 160/100 03/02/17 14:00 O2 Sat by Pulse Oximetry (%) 100 03/02/17 10:17 Labs: CBC, BMP 03/02/17 06:00 03/02/17 06:00 INR, PTT INR 0.98 (0.82-1.09) 02/16/17 05:35 Assessment/Plan T max 100. Wbc [id number]. gasrograffin study shows G tube in stomach wit no extravasation of contrast , outside the stomach. Resume g tube feeding. Will obtain gastrograffin swallow, to evaluate the reconstruction . Wound is clean , Stoma is adequate.
--- NOTE | 2017-03-02 17:07 | PN ---
Teaching Attending Note Name of Resident: Gloria Zaldivar (\\) ATTENDING PHYSICIAN STATEMENT I saw and evaluated the patient. I reviewed the resident's note and discussed the case with the resident. I agree with the resident's findings and plan as documented. SUBJECTIVE: Patient is calm today , feeling better, continues to be in ICU. OBJECTIVE: Vital Signs Temperature 98.6 F 03/02/17 14:00 Pulse Rate 100 H 03/02/17 14:00 Respiratory Rate 24 03/02/17 14:00 Blood Pressure 160/100 03/02/17 14:00 O2 Sat by Pulse Oximetry (%) 100 03/02/17 10:17 CBCD WBC 13.5 K/mm3 (4.0-10.0) H 03/02/17 06:00 RBC 3.54 M/mm3 (4.00-5.60) L 03/02/17 06:00 Hgb 11.0 GM/dL (11.7-16.9) L 03/02/17 06:00 Hct 32.9 % (35.4-49) L 03/02/17 06:00 MCV 93.1 fl (80-96) 03/02/17 06:00 MCHC 33.6 g/dl (32.0-35.9) 03/02/17 06:00 RDW 13.6 % (11.9-15.9) 03/02/17 06:00 Plt Count 442 K/MM3 (134-434) H D 03/02/17 06:00 MPV 9.4 fl (7.5-11.1) 03/02/17 06:00 CMP Sodium 143 mmol/L (136-145) 03/02/17 06:00 Potassium 4.1 mmol/L (3.5-5.1) 03/02/17 06:00 Chloride 108 mmol/L (98-107) H 03/02/17 06:00 Carbon Dioxide 26 mmol/L (21-32) 03/02/17 06:00 Anion Gap 9 (8-16) 03/02/17 06:00 BUN 8 mg/dL (7-18) 03/02/17 06:00 Creatinine 0.9 mg/dL (0.7-1.3) 03/02/17 06:00 Creat Clearance w eGFR > 60 (>60) 03/02/17 06:00 Random Glucose 118 mg/dL (74-106) H D 03/02/17 06:00 Calcium 8.3 mg/dL (8.5-10.1) L 03/02/17 06:00 Total Bilirubin 0.4 mg/dL (0.2-1.0) 03/02/17 06:00 AST 24 U/L (15-37) 03/02/17 06:00 ALT 30 U/L (12-78) 03/02/17 06:00 Alkaline Phosphatase 77 U/L (45-117) 03/02/17 06:00 Total Protein 6.7 g/dl (6.4-8.2) 03/02/17 06:00 Albumin 2.4 g/dl (3.4-5.0) L 03/02/17 06:00 CARDIAC ENZYMES Creatine Kinase 71 IU/L (39-308) 02/11/17 10:24 Troponin I < 0.02 ng/ml (0.00-0.05) 02/11/17 10:24 Current Medications Generic Name Dose Route Start Last Admin Trade Name Freq PRN Reason Stop Dose Admin Acetaminophen 650 mg 02/21/17 20:01 02/27/17 09:05 Tylenol Oral Solution - PO 650 mg Q6H PRN Administration FEVER OR PAIN Allopurinol 100 mg 02/22/17 17:28 03/02/17 10:22 Zyloprim - PEG 100 mg DAILY JUNIOR Administration Amlodipine Besylate 10 mg 02/23/17 16:45 03/02/17 10:22 Norvasc - PEG 10 mg DAILY JUNIOR Administration Aspirin 81 mg 02/23/17 10:00 03/02/17 10:22 Asa - PEG 81 mg DAILY JUNIOR Administration Bacitracin 1 applic 02/26/17 11:15 03/02/17 10:23 Bacitracin - TP 1 applic BID JUNIOR Administration Chlordiazepoxide HCl 25 mg 02/28/17 05:45 03/02/17 11:42 Librium - PEG Not Given [id number] JUNIOR Ciprofloxacin 1 drop 02/23/17 18:45 03/02/17 10:25 Ciloxan 0.3% Eye Drops - OD 1 drop DAILY JUNIOR Administration Folic Acid 1 mg 02/21/17 10:00 03/02/17 10:22 Folic Acid - PO 1 mg DAILY JUNIOR Administration Haloperidol 2.5 mg 02/28/17 02:14 03/01/17 11:38 Haldol - GT 2.5 mg Q6H PRN Administration AGITATION Heparin Sodium (Porcine) 5,000 unit 02/21/17 14:00 03/02/17 14:17 Heparin - SQ 5,000 unit TID JUNIOR Administration Hydromorphone HCl 1 mg 03/01/17 06:32 03/02/17 02:18 Dilaudid Injection - IVPUSH 1 mg Q3H PRN Administration PAIN Potassium Chloride/Sodium Chloride 20 meq in 1,000 mls @ 100 mls/hr 03/02/17 05:30 03/02/17 03:00 1/2ns+20meq Kcl IV 100 mls/hr ASDIR JUNIOR Administration Multivitamins/Minerals/Vitamin C 1 tab 02/21/17 10:00 03/02/17 10:22 Tab-A-Vit - PO 1 tab DAILY [facility]UNIOR Administration Sodium Chloride 2 spray 02/23/17 18:40 02/23/17 21:55 [place] Nasal [place] - NS 2 spray BID PRN Administration NASAL CONGESTION Home Medications Medication Instructions Recorded Amlodipine Besylate 10 mg PO DAILY 12/23/16 Atorvastatin Ca [Lipitor] 10 mg PO HS 12/23/16 Gabapentin 800 mg PO TID 12/23/16 Quetiapine Fumarate "Xr" [Seroquel 300 mg PO ACDIN 12/23/16 Xr -] Sertraline HCl [Zoloft] 100 mg PO BID 12/23/16 Folic Acid 1 mg PO DAILY 01/02/17 Allopurinol [Zyloprim -] 100 mg PO DAILY 02/12/17 Aspirin [ASA -] 81 mg PO DAILY 02/12/17 Microbiology 02/24/17 21:30 Blood - Peripheral Venous Blood Culture - Final NO GROWTH AFTER 5 DAYS INCUBATION 02/24/17 21:30 Blood - Peripheral Venous Blood Culture - Final NO GROWTH AFTER 5 DAYS INCUBATION 02/25/17 11:20 Urine - Urine [place] Urine Culture - Final Enterobacter [place]ae 02/11/17 10:15 Blood - Peripheral Venous Blood Culture - Final NO GROWTH AFTER 5 DAYS INCUBATION 02/11/17 10:15 Blood - Peripheral Venous Blood Culture - Final NO GROWTH AFTER 5 DAYS INCUBATION PE: per resident's note ASSESSMENT AND PLAN: 56 y/o gentleman with h/o Nicotine dependence, HTn, CAD s/p Stenting , hyperlipidemia and recently diagnosed R lung adenocarcinoma who presented for pulmonary resection. 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 Discussed with ; the surgeon. 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 DNR paper is in the chart.
--- NOTE | 2017-03-02 21:10 | PN ---
Progress Note (short form) - Note Progress Note: Patient seen and examined. Appreciate Dr. Cullen's coverage. I (Dr. Bledose) have returned and can be called for any question or problem [phone]. Recent events include persistent agitation. Librium was held because of concern that G-tube was dislodged, but contrast study showed good intraluminal placement. Also, he had vomited prompting stoppage of feeds. Currently, he is restrained and sedated, but he awakens and responds to my voice somewhat appropriately. Afebrile, VSS. Neck flaps down with no erythema, tracheostome intact. Secretions reportedly thick and being suctioned approx q4h. ANNA drains serous. Abdomen soft and nontender, midline wound CDI, g-tube intact. WBC 13. Zosyn DCd CXR basically clear. Generally has done well from surgical resection and wound/flap healing. The main issue has been agitation/withdrawal which is not unexpected given his very serious alcoholism, major surgery entailing removal of larynx, and lengthy ICU stay. I think he will need regular librium for the foreseeable future. Once he is less agitated, should get OOB to chair and even walk. Continue G-tube feeds to goal. If he vomits, there is no risk of aspiration since the airway has been disconnected from the aerodigestive tract--therefore, there is no need for prolonged stoppage of feeds if he vomits; stop for an hour and then restart at 20 cc/h less, then gradually increase back to goal. Antibiotics should remain off unless a clear pneumonia or other source of infection is identified. WBC of 13 or fever should not be a reason to start antibiotics. Continue aspirin and SQ heparin. I am hesitant to send him out of the ICU given his high level of care needed. Once he becomes less agitated it would be good to get him out of the ICU. Also, should DC rader and place a diaper if necessary.
[2017-03-03] MEDS: HYDROmorphone HCL CARPU-JECT 2 MG/1 ML DISP.SYRIN IVPUSH PRN ×2 (00:20→20:17)
[2017-03-03] MEDS: chlordiazePOXIDE HCL 25 MG CAPSULE PEG SCH ×4 (05:30→22:10)
[2017-03-03] MEDS: HEPARIN NA (PORCINE) 5,000 UNITS/ML 1ML VIAL SQ SCH ×3 (06:26→21:09)
[2017-03-03] MEDS: SODIUM CHLORIDE 0.45%/POT 20 MEQ/1,000 ML INFUS.BAG IV SCH ×2 (06:27→20:46)
[2017-03-03 06:33] LABS: BASO % 1.2 % (0-2.0); EOS % 5.4 % (0-4.5); MCH 30.9 pg (25.7-33.7); MEAN CELL VOLUME 93.6 fl (80-96); MEAN PLT VOLUME 9.4 fl (7.5-11.1); NEUT % 76.5 % (42.8-82.8); PLATELET COUNT 453 K/MM3 (134-434); RDW 13.7 % (11.9-15.9); WHITE BLOOD COUNT 19.5 K/mm3 (4.0-10.0)
--- NOTE | 2017-03-03 08:17 | PN ---
Progress Note (short form) - Note Progress Note: POD #11 Alert. Less agitated. Remains on 1:1. Continues to pull at his lines so he is restrained. Back on Librium. GT feeds at 60cc/hr. Last Vital Signs Temp Pulse Resp BP Pulse Ox 98.2 F 96 H 20 167/97 99 03/03/17 05:59 03/03/17 08:00 03/03/17 08:00 03/03/17 08:00 03/02/17 21:00 WBC TREND 03/01/17 03/02/17 03/03/17 05:30 06:00 06:15 WBC 12.2 H 13.5 H 19.5 H D CXR 03/02: no change compared to previous study. PE Gen: alert Neck: demond intact. Erythema decreasing. Flap viable. Tracheostome matured to skin & patent. ANNA x 2 (minimal serous drainage) ABD: demond intact. GT intact : dior oliver'd on rounds LE: RLE --> stsg wound with dry xeroform. Healing nicely. clean. (will dessicate and fall off naturally) LLE --> defect healing nicely. stsg with good adherence to wound bed SCDs bilat. . Problem List - Problems (1) Laryngeal cancer Assessment/Plan: POD #11 Dior oliver'd on rounds --> place diaper and begin trial of void Patient's WBC had significant bump compared to 24hrs earlier, following labs ordered: Urine culture Blood culture Sputum culture Gram Stain CXR Monitor for diarrhea, if he develops --> will need to r/o C.diff OOB to chair. Pain management prn. DVT ppx --> SQ heparin and aspirin. G-tube feeds to goal. Suction secretions from the tracheostome frequently. Cont to monitor flap. Physical therapy Sign over patient's bed --> NOTHING TO BE ADMINISTERED ORALLY, GT ONLY Standing Librium Above plan discussed with Dr. Bledsoe and agrees
--- NOTE | 2017-03-03 08:41 | PN ---
Physical Exam: SUBJECTIVE: Patient seen and examined. Pt looks more comfortable this morning, alert and less agitated. Pt attempts to communicate by mouthing words, and can answer yes/no questions. Pt denies pain, discomfort, sob. No events overnight. OBJECTIVE: Vital Signs Period Temp Pulse Resp BP Sys/Clay Pulse Ox Last 24 Hr 98 F-98.8 F 81-120 14-34 132-189/87-124 99-100 GENERAL: The patient is awake, alert, and fully oriented, in no acute distress. HEAD: Normal with no signs of trauma. EYES: Extraocular movements intact, sclera anicteric, conjunctiva clear. No ptosis. ENT: Moist mucous membranes. NECK: [place] intact, erythema resolving. 2 JPs with serosanguinous drainage. Tracheostome is patent. LUNGS: Breath sounds equal, clear to auscultation bilaterally, no wheezes, no crackles, no accessory muscle use. HEART: Regular rate and rhythm, S1, S2 without murmur, rub or gallop. ABDOMEN: Soft, nontender, nondistended, normoactive bowel sounds, no guarding, no masses. G-tube in place. Incision site clean, dry and intact. EXTREMITIES: Warm, well-perfused, no edema. NEUROLOGICAL: Pt nonverbal. PSYCH: Normal mood, normal affect. SKIN: Warm, dry, normal turgor, no rashes or lesions noted Laboratory Results - last 24 hr 03/03/17 03/03/17 06:15 10:25 WBC 19.5 H D RBC 3.62 L Hgb 11.2 L Hct 33.9 L MCV 93.6 MCH 30.9 MCHC 33.0 RDW 13.7 Plt Count 453 H MPV 9.4 Neutrophils % 76.5 Lymphocytes % 9.8 D Monocytes % 7.1 Eosinophils % 5.4 H Basophils % 1.2 Sodium 143 Potassium 3.8 Chloride 108 H Carbon Dioxide 24 Anion Gap 11 BUN 12 D Creatinine 1.0 Creat Clearance w eGFR > 60 Random Glucose 126 H Calcium 8.4 L Phosphorus 3.4 Magnesium 2.0 Total Bilirubin 0.4 AST 29 D ALT 38 D Alkaline Phosphatase 92 Total Protein 7.0 Albumin 2.6 L Active Medications Generic Name Dose Route Start Last Admin Trade Name Freq PRN Reason Stop Dose Admin Acetaminophen 650 mg 02/21/17 20:01 02/27/17 09:05 Tylenol Oral Solution - PO 650 mg Q6H PRN Administration FEVER OR PAIN Allopurinol 100 mg 02/22/17 17:28 03/02/17 10:22 Zyloprim - PEG 100 mg DAILY [facility] Administration Amlodipine Besylate 10 mg 02/23/17 16:45 03/02/17 10:22 Norvasc - PEG 10 mg DAILY [facility] Administration Aspirin 81 mg 02/23/17 10:00 03/02/17 10:22 Asa - PEG 81 mg DAILY [facility] Administration Bacitracin 1 applic 02/26/17 11:15 03/02/17 22:40 Bacitracin - TP 1 applic BID [facility]IOR Administration Chlordiazepoxide HCl 25 mg 02/28/17 05:45 03/03/17 05:30 Librium - PEG 25 mg [id number] JUNIOR Administration Ciprofloxacin 1 drop 02/23/17 18:45 03/02/17 10:25 Ciloxan 0.3% Eye Drops - OD 1 drop DAILY [facility] Administration Folic Acid 1 mg 02/21/17 10:00 03/02/17 10:22 Folic Acid - PO 1 mg DAILY [facility] Administration Haloperidol 2.5 mg 02/28/17 02:14 03/01/17 11:38 Haldol - GT 2.5 mg Q6H PRN Administration AGITATION Heparin Sodium (Porcine) 5,000 unit 02/21/17 14:00 03/03/17 06:26 Heparin - SQ 5,000 unit TID [facility]UNIOR Administration Hydromorphone HCl 1 mg 03/01/17 06:32 03/03/17 00:20 Dilaudid Injection - IVPUSH 1 mg Q3H PRN Administration PAIN Potassium Chloride/Sodium Chloride 20 meq in 1,000 mls @ 100 mls/hr 03/02/17 05:30 03/03/17 06:27 1/2ns+20meq Kcl IV 100 mls/hr ASDIR JUNIOR Administration Multivitamins/Minerals/Vitamin C 1 tab 02/21/17 10:00 03/02/17 10:22 Tab-A-Vit - PO 1 tab DAILY [facility]IOR Administration Sodium Chloride 2 spray 02/23/17 18:40 02/23/17 21:55 [place] Nasal [place] - NS 2 spray BID PRN Administration NASAL CONGESTION IMAGIN03/02/17 ab xray -> G-tube in proper position. Consider advancing tube to a position fully within the gastric lumen. 03/03/17 CXR -> no infiltrate, no acute process. Widened mediastinum stable. 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 # Laryngeal squamous cell Ca s/p laryngectomy with left anterolateral thigh flap pharyngeal reconstruction on 02/20/17 - POD 12: Trach matured to skin, intact, patent, no secretions. Flap and tissues viable. - Gastrograffin swallow study planned to evaluate the reconstruction - monitor ANNA output - serous. ANNA drains to be removed once output < 20ml/day - Donor site graft mostly adherent, all final topher on thigh removed. Dressing changes with bacitracin and xeroform. - suction tracheostome prn - aspiration precautions - OOB to chair as tolerated when less agitated - Pt is intermittently agitated and requires restraints to prevent self harm - Haloperidol prn and standing Librium for agitation - continue Dilaudid prn for pain - rader D/Michael # leukocytosis - Antibiotics should remain off unless a clear pneumonia or other source of infection is identified. WBC of 13 or fever should not be a reason to start antibiotics. -> Dr. Bledsoe 03/02/17 - WBCs jumped to 19.5 (from 13.5 on 03/02/17) - f/u repeat blood cultures, urine culture, sputum culture and gram stain. CXR reveals no acute process. # CAD s/p 2 stents - ASA through G-tube # htn - continue Norvasc # gout - continue Allopurinol # hx of etoh abuse - Librium standing dose # 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 Gilmore as outpatient # FEN - Fluids: 30 ml/hr water in addition to tube feeding - Electolytes: wnl, continue to monitor. - Nutrition: Jevity 1.5 at 60 ml/hr - Continue tube feeds to goal. If pt vomits, there is no risk of aspiration since the airway has been disconnected from the aerodigestive tract. Therefore, there is no need for prolonged stoppage of feeds if he vomits ( stop for an hour and then restart at 20 ml/hr less, then gradually increase back to goal). -> per Dr. Bledsoe 03/02/17 # Prophylaxis - DVT ppx with Heparin 5,000U SQ TID - GI ppx with Protonix 40mg GT daily - deconditioning ppx with bedside PT Visit type - Emergency Visit Emergency Visit: Yes ED Registration Date: 02/11/17 Care time: The patient presented to the Emergency Department on the above date and was hospitalized for further evaluation of their emergent condition. - New Patient This patient is new to me today: No - Critical Care Critical Care patient: No
[2017-03-03] MEDS ORDERED: PT OWN MED DRAWER 7, Y5N ONE ×2 (09:14→20:50)
--- NOTE | 2017-03-03 09:23 | PN ---
Physical Exam: SUBJECTIVE: Patient seen and examined at bedside. No acute events overnight. Pt somewhat communicative; can answer yes/no. Denies pain, discomfort, sob. OBJECTIVE: Vital Signs Period Temp Pulse Resp BP Sys/Clay Pulse Ox Last 24 Hr 98 F-98.8 F 81-120 14-34 132-189/87-124 99-100 GENERAL: The patient is awake, alert, in no apparent distress. HEAD: Normal with no signs of trauma. EYES: extraocular movements intact, sclera anicteric, conjunctiva clear. No ptosis. ENT: oropharynx clear without exudates, moist mucous membranes. drains with serosang fluid NECK: Trachea midline, full range of motion, supple. LUNGS: Breath sounds equal, clear to auscultation bilaterally, no wheezes, no accessory muscle use. HEART: irregular rate and rhythm, S1, S2 heard. no murmur, rub or gallop appreciated. ABDOMEN: Soft, nontender, nondistended, normoactive bowel sounds, no guarding, no rebound, no hepatosplenomegaly, no masses. incision sites clean dry and intact. G-tube in place EXTREMITIES: 2+ pulses, warm, well-perfused, no edema. NEUROLOGICAL: Cranial nerves II through XII grossly intact. Normal speech, gait not observed. PSYCH: Normal mood, normal affect. SKIN: Warm, dry, normal turgor, no rashes or lesions noted Laboratory Results - last 24 hr 03/02/17 03/03/17 06:00 06:15 WBC 19.5 H D RBC 3.62 L Hgb 11.2 L Hct 33.9 L MCV 93.6 MCH 30.9 MCHC 33.0 RDW 13.7 Plt Count 453 H MPV 9.4 Neutrophils % 76.5 Lymphocytes % 9.8 D Monocytes % 7.1 Eosinophils % 5.4 H Basophils % 1.2 Sodium 143 Potassium 4.1 Chloride 108 H Carbon Dioxide 26 Anion Gap 9 BUN 8 Creatinine 0.9 Creat Clearance w eGFR > 60 Random Glucose 118 H D Calcium 8.3 L Phosphorus 3.5 Magnesium 2.0 Total Bilirubin 0.4 AST 24 ALT 30 Alkaline Phosphatase 77 Total Protein 6.7 Albumin 2.4 L Active Medications Generic Name Dose Route Start Last Admin Trade Name Freq PRN Reason Stop Dose Admin Acetaminophen 650 mg 02/21/17 20:01 02/27/17 09:05 Tylenol Oral Solution - PO 650 mg Q6H PRN Administration FEVER OR PAIN Allopurinol 100 mg 02/22/17 17:28 03/02/17 10:22 Zyloprim - PEG 100 mg DAILY J[facility]IOR Administration Amlodipine Besylate 10 mg 02/23/17 16:45 03/02/17 10:22 Norvasc - PEG 10 mg DAILY JUNIOR Administration Aspirin 81 mg 02/23/17 10:00 03/02/17 10:22 Asa - PEG 81 mg DAILY JUNIOR Administration Bacitracin 1 applic 02/26/17 11:15 03/02/17 22:40 Bacitracin - TP 1 applic BID JUNIOR Administration Chlordiazepoxide HCl 25 mg 02/28/17 05:45 03/03/17 05:30 Librium - PEG 25 mg [id number] JUNIOR Administration Ciprofloxacin 1 drop 02/23/17 18:45 03/02/17 10:25 Ciloxan 0.3% Eye Drops - OD 1 drop DAILY JUNIOR Administration Folic Acid 1 mg 02/21/17 10:00 03/02/17 10:22 Folic Acid - PO 1 mg DAILY JUNIOR Administration Haloperidol 2.5 mg 02/28/17 02:14 03/01/17 11:38 Haldol - GT 2.5 mg Q6H PRN Administration AGITATION Heparin Sodium (Porcine) 5,000 unit 02/21/17 14:00 03/03/17 06:26 Heparin - SQ 5,000 unit TID JUNIOR Administration Hydromorphone HCl 1 mg 03/01/17 06:32 03/03/17 00:20 Dilaudid Injection - IVPUSH 1 mg Q3H PRN Administration PAIN Potassium Chloride/Sodium Chloride 20 meq in 1,000 mls @ 100 mls/hr 03/02/17 05:30 03/03/17 06:27 1/2ns+20meq Kcl IV 100 mls/hr ASDIR JUNIOR Administration Multivitamins/Minerals/Vitamin C 1 tab 02/21/17 10:00 03/02/17 10:22 Tab-A-Vit - PO 1 tab DAILY JUNIOR Administration Sodium Chloride 2 spray 02/23/17 18:40 02/23/17 21:55 [place] Nasal [place] - NS 2 spray BID PRN Administration NASAL CONGESTION ASSESSMENT/PLAN: Pt is a 56M with PMH nicotine dependence, Right lung CA, CAD with 2 stents, htn , hld, gout, presented with worsening cough and sputum production and admitted to med-surg for lung resection, 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 #NSCLCA -AdenoCA w/ LN mets -s/p VATS w/ wedge resection -Healing well #CA of larynx/pharynx -s/p pharyngectomy -free flap reconstruction -drains are functioning well -Tracheostomy requires occasional suctioning #Pt pulled G-tube -yesterday concern for tube leak. Position was confirmed by KUB with contrast. Today, pt pulled tube -tube reinserted -KUB w/ contrast -hold tube feeds until position confirmed. #HTN -Norvasc -metoprolol BID #ETOH abuse/dependence -Librium -Haldol -via G-tube once useable again #CAD -ASA #FEN -D/c fluids sa pt get tube feeds -lytes wnl -Pivot tube feeds #PPx -Heparin #Dispo -admitted to ICU for post-op recovery and monitoring Miguel Noriega MD PGY-1 ICU case discussed with attending Visit type - Emergency Visit Emergency Visit: No - New Patient This patient is new to me today: No - Critical Care Critical Care patient: Yes Total Critical Care Time (in minutes): 35 Critical Care Statement: The care of this patient involved high complexity decision making to prevent further life threatening deterioration of the patient 's condition and/or to evaluate & treat vital organ system(s) failure or risk of failure. - Discharge Referral Referred to [facility] Med P.C.: No
[2017-03-03] MEDS: ASPIRIN 81 MG CHEWABLE TABLETS PEG SCH (09:54)
[2017-03-03] MEDS: FOLIC ACID 1 MG TABLET (FP) PO SCH (09:54)
[2017-03-03] MEDS: ALLOPURINOL 100 MG TABLET (FP) PEG SCH (09:54)
[2017-03-03] MEDS: MULTIVITAMINS (DAILY MVI) TABLET (FP) PO SCH (09:54)
[2017-03-03] MEDS: amLODIPine BESYLATE 10 MG TABLET (FP) PEG SCH (09:54)
[2017-03-03] MEDS: BACITRACIN 15 GM TUBE TOPICAL OINTMENT TP SCH ×2 (09:55→21:10)
[2017-03-03] MEDS: CIPROFLOXACIN 0.3% EYE DROPS 5 ML BOTTLE OD SCH (09:56)
[2017-03-03 11:58] LABS: ALBUMIN 2.6 g/dl (3.4-5.0); ALK PHOS 92 U/L (45-117); ANION GAP 11 (8-16); BILIRUBIN,TOTAL 0.4 mg/dL (0.2-1.0); CALCIUM 8.4 mg/dL (8.5-10.1); CO2 24 mmol/L (21-32); GLUCOSE,RANDOM 126 mg/dL (74-106); PHOSPHOROUS 3.4 mg/dL (2.5-4.9); SGOT/AST 29 U/L (15-37); SGPT/ALT 38 U/L (12-78)
--- NOTE | 2017-03-03 12:42 | PN ---
Teaching Attending Note Name of Resident: Miguel Noriega ATTENDING PHYSICIAN STATEMENT I saw and evaluated the patient. I reviewed the resident's note and discussed the case with the resident. I agree with the resident's findings and plan as documented. SUBJECTIVE: Pt seen and examined in the ICU. Confused with intermittent agitation. Pulled out G-tube, replaced at bedside. OBJECTIVE: Last Vital Signs Temp Pulse Resp BP Pulse Ox 98.2 F 96 H 20 167/97 99 03/03/17 05:59 03/03/17 08:00 03/03/17 08:00 03/03/17 08:00 03/02/17 21:00 Intake & Output 02/28/17 03/01/17 03/02/17 03/03/17 23:59 23:59 23:59 23:59 Intake Total 4510 3350 500 1830 Output Total 692 231 1938 413 Balance 3753 2725 -2820 1417 Weight 220 lb 1.6 oz 216 lb 3 oz 217 lb 6.4 oz 211 lb 6.4 oz Gen: confused Heart: RRR Lung: decreased breath sounds at the bases Abd: soft, nontender Ext: no edema CBC, BMP 03/03/17 06:15 03/03/17 10:25 Active Medications Acetaminophen (Tylenol Oral Solution -) 650 mg PO Q6H PRN PRN Reason: FEVER OR PAIN Last Admin: 02/27/17 09:05 Dose: 650 mg Allopurinol (Zyloprim -) 100 mg PEG DAILY [facility] Last Admin: 03/03/17 09:54 Dose: 100 mg Amlodipine Besylate (Norvasc -) 10 mg PEG DAILY [facility] Last Admin: 03/03/17 09:54 Dose: 10 mg Aspirin (Asa -) 81 mg PEG DAILY [facility] Last Admin: 03/03/17 09:54 Dose: 81 mg Bacitracin (Bacitracin -) 1 applic TP BID [facility] Last Admin: 03/03/17 09:55 Dose: 1 applic Chlordiazepoxide HCl (Librium -) 25 mg PEG [id number] [facility] Last Admin: 03/03/17 05:30 Dose: 25 mg Ciprofloxacin (Ciloxan 0.3% Eye Drops -) 1 drop OD DAILY [facility] Last Admin: 03/03/17 09:56 Dose: 1 drop Folic Acid (Folic Acid -) 1 mg PO DAILY [facility] Last Admin: 03/03/17 09:54 Dose: 1 mg Haloperidol (Haldol -) 2.5 mg GT Q6H PRN PRN Reason: AGITATION Last Admin: 03/01/17 11:38 Dose: 2.5 mg Heparin Sodium (Porcine) (Heparin -) 5,000 unit SQ TID [facility] Last Admin: 03/03/17 06:26 Dose: 5,000 unit Hydromorphone HCl (Dilaudid Injection -) 1 mg IVPUSH Q3H PRN PRN Reason: PAIN Last Admin: 03/03/17 00:20 Dose: 1 mg Multivitamins/Minerals/Vitamin C (Tab-A-Vit -) 1 tab PO DAILY [facility] Last Admin: 03/03/17 09:54 Dose: 1 tab Sodium Chloride ([place] Nasal [place] -) 2 spray NS BID PRN PRN Reason: NASAL CONGESTION Last Admin: 02/23/17 21:55 Dose: 2 spray ASSESSMENT AND PLAN: NSCLC - Adenocarcinoma s/p R VATS/Wedge Resection/CT placement now removed 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
[2017-03-03] MEDS ORDERED: LORazepam 2 MG/ML SDV VIAL IVPUSH STA (17:12)
[2017-03-03] MEDS ORDERED: LORazepam 2 MG/ML SDV VIAL ONE (17:14)
[2017-03-03] MEDS: METOPROLOL TARTRATE 25 MG TABLET (FP) PO SCH ×2 (17:15→21:10)
--- NOTE | 2017-03-03 19:52 | PN ---
Teaching Attending Note Name of Resident: Gloria Zaldivar ATTENDING PHYSICIAN STATEMENT I saw and evaluated the patient. I reviewed the resident's note and discussed the case with the resident. I agree with the resident's findings and plan as documented. SUBJECTIVE: Patient is doing better with no acute distress. less agitated on Librium now. OBJECTIVE: Vital Signs Temperature 98.6 F 03/03/17 18:05 Pulse Rate 102 H 03/03/17 18:11 Respiratory Rate 21 03/03/17 18:00 Blood Pressure 102/73 03/03/17 18:00 O2 Sat by Pulse Oximetry (%) 99 03/03/17 18:11 CBCD WBC 19.5 K/mm3 (4.0-10.0) H D 03/03/17 06:15 RBC 3.62 M/mm3 (4.00-5.60) L 03/03/17 06:15 Hgb 11.2 GM/dL (11.7-16.9) L 03/03/17 06:15 Hct 33.9 % (35.4-49) L 03/03/17 06:15 MCV 93.6 fl (80-96) 03/03/17 06:15 MCHC 33.0 g/dl (32.0-35.9) 03/03/17 06:15 RDW 13.7 % (11.9-15.9) 03/03/17 06:15 Plt Count 453 K/MM3 (134-434) H 03/03/17 06:15 MPV 9.4 fl (7.5-11.1) 03/03/17 06:15 CMP Sodium 143 mmol/L (136-145) 03/03/17 10:25 Potassium 3.8 mmol/L (3.5-5.1) 03/03/17 10:25 Chloride 108 mmol/L (98-107) H 03/03/17 10:25 Carbon Dioxide 24 mmol/L (21-32) 03/03/17 10:25 Anion Gap 11 (8-16) 03/03/17 10:25 BUN 12 mg/dL (7-18) D 03/03/17 10:25 Creatinine 1.0 mg/dL (0.7-1.3) 03/03/17 10:25 Creat Clearance w eGFR > 60 (>60) 03/03/17 10:25 Random Glucose 126 mg/dL (74-106) H 03/03/17 10:25 Calcium 8.4 mg/dL (8.5-10.1) L 03/03/17 10:25 Total Bilirubin 0.4 mg/dL (0.2-1.0) 03/03/17 10:25 AST 29 U/L (15-37) D 03/03/17 10:25 ALT 38 U/L (12-78) D 03/03/17 10:25 Alkaline Phosphatase 92 U/L (45-117) 03/03/17 10:25 Total Protein 7.0 g/dl (6.4-8.2) 03/03/17 10:25 Albumin 2.6 g/dl (3.4-5.0) L 03/03/17 10:25 CARDIAC ENZYMES Creatine Kinase 71 IU/L (39-308) 02/11/17 10:24 Troponin I < 0.02 ng/ml (0.00-0.05) 02/11/17 10:24 Current Medications Generic Name Dose Route Start Last Admin Trade Name Swapnilq PRN Reason Stop Dose Admin Acetaminophen 650 mg 02/21/17 20:01 02/27/17 09:05 Tylenol Oral Solution - PO 650 mg Q6H PRN Administration FEVER OR PAIN Allopurinol 100 mg 02/22/17 17:28 03/03/17 09:54 Zyloprim - PEG 100 mg DAILY JUNIOR Administration Amlodipine Besylate 10 mg 02/23/17 16:45 03/03/17 09:54 Norvasc - PEG 10 mg DAILY JUNIOR Administration Aspirin 81 mg 02/23/17 10:00 03/03/17 09:54 Asa - PEG 81 mg DAILY JUNIOR Administration Bacitracin 1 applic 02/26/17 11:15 03/03/17 09:55 Bacitracin - TP 1 applic BID JUNIOR Administration Chlordiazepoxide HCl 25 mg 02/28/17 05:45 03/03/17 17:16 Librium - PEG 25 mg [id number] JUNIOR Administration Ciprofloxacin 1 drop 02/23/17 18:45 03/03/17 09:56 Ciloxan 0.3% Eye Drops - OD 1 drop DAILY JUNIOR Administration Folic Acid 1 mg 02/21/17 10:00 03/03/17 09:54 Folic Acid - PO 1 mg DAILY JUNIOR Administration Haloperidol 2.5 mg 02/28/17 02:14 03/01/17 11:38 Haldol - GT 2.5 mg Q6H PRN Administration AGITATION Heparin Sodium (Porcine) 5,000 unit 02/21/17 14:00 03/03/17 13:33 Heparin - SQ 5,000 unit TID JUNIOR Administration Hydromorphone HCl 1 mg 03/01/17 06:32 03/03/17 00:20 Dilaudid Injection - IVPUSH 1 mg Q3H PRN Administration PAIN Metoprolol Tartrate 25 mg 03/03/17 13:00 03/03/17 17:15 Lopressor - PO 25 mg BID JUNIOR Administration Multivitamins/Minerals/Vitamin C 1 tab 02/21/17 10:00 03/03/17 09:54 Tab-A-Vit - PO 1 tab DAILY JUNIOR Administration Pantoprazole Sodium 40 mg 03/04/17 10:00 Protonix Packets For Oral Suspension - GT DAILY JUNIOR Sodium Chloride 2 spray 02/23/17 18:40 02/23/17 21:55 [place] Nasal [place] - NS 2 spray BID PRN Administration NASAL CONGESTION Home Medications Medication Instructions Recorded Amlodipine Besylate 10 mg PO DAILY 12/23/16 Atorvastatin Ca [Lipitor] 10 mg PO HS 12/23/16 Gabapentin 800 mg PO TID 12/23/16 Quetiapine Fumarate "Xr" [Seroquel 300 mg PO ACDIN 12/23/16 Xr -] Sertraline HCl [Zoloft] 100 mg PO BID 12/23/16 Folic Acid 1 mg PO DAILY 01/02/17 Allopurinol [Zyloprim -] 100 mg PO DAILY 02/12/17 Aspirin [ASA -] 81 mg PO DAILY 02/12/17 PE: per resident's note ASSESSMENT AND PLAN: 56 y/o gentleman with h/o Nicotine dependence, HTn, CAD s/p Stenting , hyperlipidemia and recently diagnosed R lung adenocarcinoma who presented for pulmonary resection. Also was found to have laryngeal SCC # POD#13 NSCLC - Adenocarcinoma s/p extubation , s/p R VATS/Wedge Resection. Discussed with ; the surgeon. 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 DNR paper is in the chart.
[2017-03-03] MEDS ORDERED: diazePAM CARPU-JECT 10 MG/2 ML DISP.SYRIN IVPUSH PRN (23:02)
[2017-03-04] MEDS: LORazepam 2 MG/ML SDV VIAL IVPUSH PRN ×2 (00:26→12:37)
[2017-03-04] MEDS: chlordiazePOXIDE HCL 25 MG CAPSULE PEG SCH ×3 (05:26→16:23)
[2017-03-04] MEDS: HEPARIN NA (PORCINE) 5,000 UNITS/ML 1ML VIAL SQ SCH ×3 (06:24→22:13)
[2017-03-04 07:49] LABS: EOS % 4.8 % (0-4.5); MCH 30.6 pg (25.7-33.7); MCHC 32.9 g/dl (32.0-35.9); MEAN PLT VOLUME 9.4 fl (7.5-11.1); NEUT % 78.8 % (42.8-82.8); PLATELET COUNT 455 K/MM3 (134-434); RDW 14.1 % (11.9-15.9); WHITE BLOOD COUNT 15.7 K/mm3 (4.0-10.0)
[2017-03-04 08:09] LABS: ALBUMIN 2.4 g/dl (3.4-5.0); ALK PHOS 89 U/L (45-117); ANION GAP 10 (8-16); BILIRUBIN,TOTAL 0.6 mg/dL (0.2-1.0); CALCIUM 8.2 mg/dL (8.5-10.1); CO2 27 mmol/L (21-32); CREATININE 0.9 mg/dL (0.7-1.3); GLUCOSE,RANDOM 116 mg/dL (74-106); SGOT/AST 25 U/L (15-37); SGPT/ALT 34 U/L (12-78); TOT PROT 6.9 g/dl (6.4-8.2)
[2017-03-04] MEDS ORDERED: LIDOCAINE HCL 1%, 10 MG/ML (50 mL VIAL) SQ ONE (08:20)
--- NOTE | 2017-03-04 09:56 | PN ---
Progress Note (short form) - Note Progress Note: PT removed his GT x 2 yesterday. A tube study was completed and feeds were temporarily restarted. zUntil he then repulled the tube. He was npo this am. A 24 FR rader cath with an unflated balloon had been inserted approximately 5 cm. I tried to replace with a 22 FR GT and could only advance 5 cm, and unable to inflate ballon. A 18 Fr rader cath was advanced beyond 5 cm, clear fluid was flushed and aspirated. No bilious material, the balloon was infalted eith 8 cc NS and placed to gravity drainage. Vital Signs Period Temp Pulse Resp BP Sys/Clay Pulse Ox Last 24 Hr 98.4 F-98.6 F 78-108 14-29 101-168/73-110 99-99 ANNA: left-10cc right- 15cc-serous GEN: awakes easily, responsive to stimuli Neck: minimal suture/staple line erythema. No drainage noted. ANNA's serous. inc line c/d/i Trach stoma site without copious secretions Abd: soft, non-distended, non-tender. As above 18 fr rader cath replaced in GT tract Left thigh: graft uptake good with xeroform/abd dressing replaced today right thigh: xerform over donor site dry/edges starting to peel back. Microbiology 03/03/17 09:20 Blood - Peripheral Venous Blood Culture - Preliminary NO GROWTH OBTAINED AFTER 24 HOURS, INCUBATION TO CONTINUE FOR 4 DAYS. 03/03/17 09:15 Blood - Peripheral Venous Blood Culture - Preliminary NO GROWTH OBTAINED AFTER 24 HOURS, INCUBATION TO CONTINUE FOR 4 DAYS. CXR: No acute infiltrates/effusions 03/04 A/P: POD#12 s/p laryngectomy with left anterolateral thigh flap pharyngeal recnstruction, STSG from right thigh to left thigh He remains afebrile with and improved WBC count today GT replaced with 18 fr rader cath, tube study ordered by the ICU team for today. Continue strict npo until tube placement confirmed Recalled PT to begin mobilizing the patient, oob to chair Continue close 1:1 observation, hand/chelsy restraints to prevent pulling of lines/catheters DVT ppx with Heparin SQ/aspirin D/w Dr. Bledsoe
--- NOTE | 2017-03-04 10:53 | PN ---
Teaching Attending Note Name of Resident: Miguel Noriega ATTENDING PHYSICIAN STATEMENT I saw and evaluated the patient. I reviewed the resident's note and discussed the case with the resident. I agree with the resident's findings and plan as documented. SUBJECTIVE: Pt seen and examined in the ICU. Pulled his G-tube again overnight despite restraints. [place] inserted per surgery. No fevers recorded. Alert, awake. Calm currently. OBJECTIVE: Last Vital Signs Temp Pulse Resp BP Pulse Ox 98.5 F 82 19 141/88 99 03/04/17 02:00 03/04/17 06:50 03/04/17 09:00 03/04/17 06:00 03/04/17 09:00 Intake & Output 03/01/17 03/02/17 03/03/17 03/04/17 23:59 23:59 23:59 23:59 Intake Total 3350 500 2030 800 Output Total 625 3320 413 25 Balance 2725 -2820 1617 775 Weight 216 lb 3 oz 217 lb 6.4 oz 211 lb 6.4 oz 208 lb 3 oz Gen: awake, alert, less diaphoretic Heart: RRR Lung: decreased breath sounds at the bases Abd: soft, nontender, abdominal binder in place Ext: no edema CBC, BMP 03/04/17 06:25 03/04/17 06:25 Active Medications Acetaminophen (Tylenol Oral Solution -) 650 mg PO Q6H PRN PRN Reason: FEVER OR PAIN Last Admin: 02/27/17 09:05 Dose: 650 mg Allopurinol (Zyloprim -) 100 mg PEG DAILY [facility] Last Admin: 03/03/17 09:54 Dose: 100 mg Amlodipine Besylate (Norvasc -) 10 mg PEG DAILY [facility] Last Admin: 03/03/17 09:54 Dose: 10 mg Aspirin (Asa -) 81 mg PEG DAILY [facility] Last Admin: 03/03/17 09:54 Dose: 81 mg Bacitracin (Bacitracin -) 1 applic TP BID [facility] Last Admin: 03/03/17 21:10 Dose: 1 applic Chlordiazepoxide HCl (Librium -) 25 mg PEG [id number] [facility] Last Admin: 03/04/17 05:26 Dose: Not Given Ciprofloxacin (Ciloxan 0.3% Eye Drops -) 1 drop OD DAILY [facility] Last Admin: 03/03/17 09:56 Dose: 1 drop Folic Acid (Folic Acid -) 1 mg PO DAILY [facility] Last Admin: 03/03/17 09:54 Dose: 1 mg Haloperidol (Haldol -) 2.5 mg GT Q6H PRN PRN Reason: AGITATION Last Admin: 03/01/17 11:38 Dose: 2.5 mg Heparin Sodium (Porcine) (Heparin -) 5,000 unit SQ TID [facility] Last Admin: 03/04/17 06:24 Dose: 5,000 unit Hydromorphone HCl (Dilaudid Injection -) 1 mg IVPUSH Q3H PRN PRN Reason: PAIN Last Admin: 03/03/17 20:17 Dose: 1 mg Potassium Chloride/Sodium Chloride (1/2ns+20meq Kcl) 20 meq in 1,000 mls @ 83 mls/hr IV ASDIR [facility] Last Admin: 03/03/17 20:46 Dose: 83 mls/hr Lorazepam (Ativan Injection -) 2 mg IVPUSH Q4H PRN PRN Reason: AGITATION Last Admin: 03/04/17 00:26 Dose: 2 mg Metoprolol Tartrate (Lopressor -) 25 mg PO BID [facility] Last Admin: 03/03/17 21:10 Dose: 25 mg Multivitamins/Minerals/Vitamin C (Tab-A-Vit -) 1 tab PO DAILY [facility] Last Admin: 03/03/17 09:54 Dose: 1 tab Pantoprazole Sodium (Protonix Packets For Oral Suspension -) 40 mg GT DAILY [facility] Sodium Chloride ([place] Nasal [place] -) 2 spray NS BID PRN PRN Reason: NASAL CONGESTION Last Admin: 02/23/17 21:55 Dose: 2 spray ASSESSMENT AND PLAN: NSCLC - Adenocarcinoma s/p R VATS/Wedge Resection/CT placement now removed 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
[2017-03-04] MEDS: BACITRACIN 15 GM TUBE TOPICAL OINTMENT TP SCH ×2 (11:00→22:14)
--- NOTE | 2017-03-04 11:18 | PN ---
Physical Exam: SUBJECTIVE: Patient seen and examined at bedside. Last night, pt pulled his G tube for the second time in one day despite having restraints. Pt denies pain or discomfort. Limited communication as pt can't speak but can only mouth words. OBJECTIVE: Vital Signs Period Temp Pulse Resp BP Sys/Clay Pulse Ox Last 24 Hr 98.4 F-98.6 F 78-108 14-29 101-168/73-110 99-99 GENERAL: The patient is awake in no apparent distress. HEAD: Normal with no signs of trauma. EYES: extraocular movements intact, sclera anicteric, conjunctiva clear. No ptosis. ENT: oropharynx clear without exudates, moist mucous membranes. ANNA drains with serosang fluid NECK: tracheostomy, supple without rigidity. LUNGS: Breath sounds equal, clear to auscultation bilaterally, no wheezes, no accessory muscle use. HEART: irregular rate and rhythm, S1, S2 heard. no murmur, rub or gallop appreciated. ABDOMEN: Soft, nontender, nondistended, normoactive bowel sounds, no guarding, no rebound, no hepatosplenomegaly, no masses. incision sites clean dry and intact. G-tube in place EXTREMITIES: 2+ pulses, warm, well-perfused, no edema. NEUROLOGICAL: Cranial nerves II through XII grossly intact. Normal speech, gait not observed. PSYCH: Normal mood, normal affect. SKIN: Warm, dry, normal turgor, no rashes or lesions noted Laboratory Results - last 24 hr 03/03/17 03/04/17 03/04/17 10:25 06:25 06:25 WBC 15.7 H RBC 3.74 L Hgb 11.4 L Hct 34.8 L MCV 93.0 MCH 30.6 MCHC 32.9 RDW 14.1 Plt Count 455 H MPV 9.4 Neutrophils % 78.8 Lymphocytes % 9.6 Monocytes % 5.8 Eosinophils % 4.8 H Basophils % 1.0 Sodium 143 143 Potassium 3.8 4.0 Chloride 108 H 106 Carbon Dioxide 24 27 Anion Gap 11 10 BUN 12 D 11 Creatinine 1.0 0.9 Creat Clearance w eGFR > 60 > 60 Random Glucose 126 H 116 H Calcium 8.4 L 8.2 L Phosphorus 3.4 Magnesium 2.0 Total Bilirubin 0.4 0.6 D AST 29 D 25 ALT 38 D 34 Alkaline Phosphatase 92 89 Total Protein 7.0 6.9 Albumin 2.6 L 2.4 L Active Medications Generic Name Dose Route Start Last Admin Trade Name Freq PRN Reason Stop Dose Admin Acetaminophen 650 mg 02/21/17 20:01 02/27/17 09:05 Tylenol Oral Solution - PO 650 mg Q6H PRN Administration FEVER OR PAIN Allopurinol 100 mg 02/22/17 17:28 03/03/17 09:54 Zyloprim - PEG 100 mg DAILY [facility] Administration Amlodipine Besylate 10 mg 02/23/17 16:45 03/03/17 09:54 Norvasc - PEG 10 mg DAILY J[facility] Administration Aspirin 81 mg 02/23/17 10:00 03/03/17 09:54 Asa - PEG 81 mg DAILY [facility] Administration Bacitracin 1 applic 02/26/17 11:15 03/03/17 21:10 Bacitracin - TP 1 applic BID JUNIOR Administration Chlordiazepoxide HCl 25 mg 02/28/17 05:45 03/04/17 05:26 Librium - PEG Not Given [id number] [facility] Ciprofloxacin 1 drop 02/23/17 18:45 03/03/17 09:56 Ciloxan 0.3% Eye Drops - OD 1 drop DAILY JUNIOR Administration Folic Acid 1 mg 02/21/17 10:00 03/03/17 09:54 Folic Acid - PO 1 mg DAILY [facility]IOR Administration Haloperidol 2.5 mg 02/28/17 02:14 03/01/17 11:38 Haldol - GT 2.5 mg Q6H PRN Administration AGITATION Heparin Sodium (Porcine) 5,000 unit 02/21/17 14:00 03/04/17 06:24 Heparin - SQ 5,000 unit TID [facility]IOR Administration Hydromorphone HCl 1 mg 03/01/17 06:32 03/03/17 20:17 Dilaudid Injection - IVPUSH 1 mg Q3H PRN Administration PAIN Potassium Chloride/Sodium Chloride 20 meq in 1,000 mls @ 83 mls/hr 03/03/17 20 :30 03/03/17 20:46 1/2ns+20meq Kcl IV 83 mls/hr ASDIR JUNIOR Administration Lorazepam 2 mg 03/03/17 23:08 03/04/17 00:26 Ativan Injection - IVPUSH 2 mg Q4H PRN Administration AGITATION Metoprolol Tartrate 25 mg 03/03/17 13:00 03/03/17 21:10 Lopressor - PO 25 mg BID J[facility]IOR Administration Multivitamins/Minerals/Vitamin C 1 tab 02/21/17 10:00 03/03/17 09:54 Tab-A-Vit - PO 1 tab DAILY [facility] Administration Pantoprazole Sodium 40 mg 03/04/17 10:00 Protonix Packets For Oral Suspension - GT DAILY [facility] Sodium Chloride 2 spray 02/23/17 18:40 02/23/17 21:55 [place] Nasal [place] - NS 2 spray BID PRN Administration NASAL CONGESTION ASSESSMENT/PLAN: Pt is a 56M with PMH nicotine dependence, Right lung CA, CAD with 2 stents, htn , hld, gout, presented with worsening cough and sputum production and admitted to med-surg for lung resection, 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 #NSCLCA -AdenoCA w/ LN mets -s/p VATS w/ wedge resection -Surgical site healing well #CA of larynx/pharynx -s/p pharyngectomy -free flap reconstruction -drains are functioning well. Nonpurulent -Tracheostomy continues to function well with trach collar #Pt pulled G-tube -Pt pulled g-tube twice yesterday -Surg PA saw pt and placed a rader -KUB w/ contrast to confirm placement -hold tube feeds until position confirmed. #HTN -Norvasc -metoprolol BID #ETOH abuse/dependence -Librium -Haldol -via G-tube once useable again #CAD -ASA #FEN -D/c fluids sa pt get tube feeds -lytes wnl -Pivot tube feeds #PPx -Heparin #Dispo -admitted to ICU for post-op recovery and monitoring Miguel Noriega MD PGY-1 ICU case discussed with attending Visit type - Emergency Visit Emergency Visit: No - New Patient This patient is new to me today: No - Critical Care Critical Care patient: Yes Total Critical Care Time (in minutes): 35 Critical Care Statement: The care of this patient involved high complexity decision making to prevent further life threatening deterioration of the patient 's condition and/or to evaluate & treat vital organ system(s) failure or risk of failure. - Discharge Referral Referred to [facility] Med P.C.: No
[2017-03-04] MEDS ORDERED: ALBUTEROL SO4 0.083% IH SOL 2.5 MG/3 ML VIAL.NEB. NEB ONE (12:48)
[2017-03-04] MEDS ORDERED: ALBUTEROL SO4 0.5 % INH SOLN 2.5 MG/0.5 ML VIAL.NEB. NEB PRN (12:49)
[2017-03-04] MEDS ORDERED: RAPID SEQUENCE INTUBATION KIT NR ONE (13:03)
[2017-03-04] MEDS ORDERED: PROPOFOL 1,000,000 MCG/100 ML VIAL IVPB SCH (13:15)
--- NOTE | 2017-03-04 13:19 | RAPID ---
Physical Examination Vital Signs: Vital Signs Temperature 98.5 F 03/04/17 02:00 Pulse Rate 92 H 03/04/17 10:30 Respiratory Rate 18 03/04/17 10:00 Blood Pressure 113/89 03/04/17 10:00 O2 Sat by Pulse Oximetry (%) 99 03/04/17 10:30 Findings/Remarks: Rapid response was called in ICU at 12:56. On arriving at the bedside, pt was cyanotic with O2 sat in 50s. HR was tachycardic to 120s, and pt was in respiratory distress. Nurse began bagging patient and O2 sat improved. [place] Machine Operator and anesthesiologist were both called. Anesthesia arrived and placed a ET tube via the tracheostomy at 13:04. Stat CXR ordered. Propofol ordered for sedation. Pt stable but remains tachycardic at 102. O2 sats normal. Labs: CBC, BMP 03/04/17 06:25 03/04/17 06:25
[2017-03-04] MEDS: MULTIVITAMINS (DAILY MVI) TABLET (FP) PO SCH (14:33)
[2017-03-04] MEDS: METOPROLOL TARTRATE 25 MG TABLET (FP) PO SCH ×2 (14:33→22:13)
[2017-03-04] MEDS: amLODIPine BESYLATE 10 MG TABLET (FP) PEG SCH (14:33)
[2017-03-04] MEDS: ALLOPURINOL 100 MG TABLET (FP) PEG SCH (14:33)
[2017-03-04] MEDS: ASPIRIN 81 MG CHEWABLE TABLETS PEG SCH (14:33)
[2017-03-04] MEDS: PANTOPRAZOLE SOD 40 MG SUSPENSION PACKET GT SCH (14:34)
[2017-03-04] MEDS: FOLIC ACID 1 MG TABLET (FP) PO SCH (14:34)
[2017-03-04 14:40] LABS: ARTERIAL BLD GAS O2 SATURATION 98.1 % (90-98.9); ARTERIAL BLOOD GAS BASE EXCESS -0.7 meq/l (-2-2); ARTERIAL BLOOD GAS HCO3 23.5 meq/L (22-26); ARTERIAL BLOOD GAS pH 7.39 (7.35-7.45)
[2017-03-04 14:41] LABS: ALLENS TEST POSITIVE
[2017-03-04 14:42] LABS: ART PUNCT SITE RIGHT RADIAL; PT. ON O2? 60
--- NOTE | 2017-03-04 15:34 | PN ---
Physical Exam: SUBJECTIVE: Patient seen and examined. Pt resting on exam, less agitated. Pt does not c/o pain. No fever, chills. Pt pulled out his G-tube overnight, despite restraints, and a rader was inserted to preserve the opening. Rapid Response early this afternoon -> ET tube via tracheostomy OBJECTIVE: Vital Signs Period Temp Pulse Resp BP Sys/Clay Pulse Ox Last 24 Hr 98.5 F-98.6 F 78-108 14-29 101-168/73-110 99-100 GENERAL: The patient in no acute distress. HEAD: Normal with no signs of trauma. EYES: Extraocular movements intact, sclera anicteric, conjunctiva clear. No ptosis. ENT: Moist mucous membranes. NECK: [place] intact. 2 JPs with serosanguinous drainage. Tracheostome is patent. LUNGS: Clear to auscultation bilaterally. HEART: Regular rate and rhythm, S1, S2 without murmur, rub or gallop. ABDOMEN: Soft, nondistended, normoactive bowel sounds, no guarding, no masses. EXTREMITIES: Warm, well-perfused, no edema. Dimitri SCDs in place. SKIN: Warm, dry, normal turgor, no rashes or lesions noted Laboratory Results - last 24 hr 03/04/17 03/04/17 03/04/17 06:25 06:25 14:35 WBC 15.7 H RBC 3.74 L Hgb 11.4 L Hct 34.8 L MCV 93.0 MCH 30.6 MCHC 32.9 RDW 14.1 Plt Count 455 H MPV 9.4 Neutrophils % 78.8 Lymphocytes % 9.6 Monocytes % 5.8 Eosinophils % 4.8 H Basophils % 1.0 Puncture Site Right radial ABG pH 7.39 ABG pCO2 at Pt Temp 39.2 ABG pO2 at Pt Temp 110.0 H D ABG HCO3 23.5 ABG O2 Sat (Measured) 98.1 ABG O2 Content 16.3 ABG Base Excess -0.7 Angel Test Positive Oxygen Flow Rate 60 PEEP 5.0 Sodium 143 Potassium 4.0 Chloride 106 Carbon Dioxide 27 Anion Gap 10 BUN 11 Creatinine 0.9 Creat Clearance w eGFR > 60 Random Glucose 116 H Calcium 8.2 L Total Bilirubin 0.6 D AST 25 ALT 34 Alkaline Phosphatase 89 Total Protein 6.9 Albumin 2.4 L Active Medications Generic Name Dose Route Start Last Admin Trade Name Freq PRN Reason Stop Dose Admin Acetaminophen 650 mg 02/21/17 20:01 02/27/17 09:05 Tylenol Oral Solution - PO 650 mg Q6H PRN Administration FEVER OR PAIN Albuterol Sulfate 1 amp 03/04/17 12:49 Ventolin 0.5% - NEB Q4H PRN SHORT OF BREATH/WHEEZING Allopurinol 100 mg 02/22/17 17:28 03/04/17 14:33 Zyloprim - PEG 100 mg DAILY JUNIOR Administration Amlodipine Besylate 10 mg 02/23/17 16:45 03/04/17 14:33 Norvasc - PEG 10 mg DAILY JUNIOR Administration Aspirin 81 mg 02/23/17 10:00 03/04/17 14:33 Asa - PEG 81 mg DAILY JUNIOR Administration Bacitracin 1 applic 02/26/17 11:15 03/03/17 21:10 Bacitracin - TP 1 applic BID JUNIOR Administration Chlordiazepoxide HCl 25 mg 02/28/17 05:45 03/04/17 05:26 Librium - PEG Not Given [id number] JUNIOR Ciprofloxacin 1 drop 02/23/17 18:45 03/03/17 09:56 Ciloxan 0.3% Eye Drops - OD 1 drop DAILY JUNIOR Administration Folic Acid 1 mg 02/21/17 10:00 03/04/17 14:34 Folic Acid - PO 1 mg DAILY JUNIOR Administration Haloperidol 2.5 mg 02/28/17 02:14 03/01/17 11:38 Haldol - GT 2.5 mg Q6H PRN Administration AGITATION Heparin Sodium (Porcine) 5,000 unit 02/21/17 14:00 03/04/17 06:24 Heparin - SQ 5,000 unit TID JUNIOR Administration Hydromorphone HCl 1 mg 03/01/17 06:32 03/03/17 20:17 Dilaudid Injection - IVPUSH 1 mg Q3H PRN Administration PAIN Potassium Chloride/Sodium Chloride 20 meq in 1,000 mls @ 83 mls/hr 03/03/17 20 :30 03/03/17 20:46 1/2ns+20meq Kcl IV 83 mls/hr ASDIR JUNIOR Administration Lorazepam 2 mg 03/03/17 23:08 03/04/17 12:37 Ativan Injection - IVPUSH 2 mg Q4H PRN Administration AGITATION Metoprolol Tartrate 25 mg 03/03/17 13:00 03/04/17 14:33 Lopressor - PO 25 mg BID JUNIOR Administration Multivitamins/Minerals/Vitamin C 1 tab 02/21/17 10:00 03/04/17 14:33 Tab-A-Vit - PO 1 tab DAILY JUNIOR Administration Pantoprazole Sodium 40 mg 03/04/17 10:00 03/04/17 14:34 Protonix Packets For Oral Suspension - GT 40 mg DAILY JUNIOR Administration Sodium Chloride 2 spray 02/23/17 18:40 02/23/17 21:55 [place] Nasal [place] - NS 2 spray BID PRN Administration NASAL CONGESTION IMAGIN03/03/17 Ab Xray -> no significant change in G-tube placement from prior. 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 # hypoxia - Pt's O2 saturation dropped to the 50's% and tachycardic to 120's early this afternoon -> Rapid Response called. - ET tube placed via tracheostomy - f/u CXR # pulled G-tube - Pt pulled G-tube twice yesterday - G-tube replaced by ICU team - f/u Ab xray to verify placement # Laryngeal squamous cell Ca s/p laryngectomy with left anterolateral thigh flap pharyngeal reconstruction on 02/20/17 - POD 13: Trach matured to skin, intact, patent, no secretions. Flap and tissues viable. - monitor ANNA output - nonpurulent. ANNA drains to be removed once output < 20ml/day - Donor site graft dressing changes with bacitracin and xeroform. 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 Gilmore as outpatient # FEN - Fluids: 1/2 NS with 20meq KCl @ 83ml/hr - Electolytes: wnl, continue to monitor. - Nutrition: Jevity 1.5 at 60 ml/hr ON HOLD until G-tube placement confirmed. # Prophylaxis - DVT ppx with Heparin 5,000U SQ TID - GI ppx with Protonix 40mg GT daily - deconditioning ppx with bedside PT Visit type - Emergency Visit Emergency Visit: Yes ED Registration Date: 02/11/17 Care time: The patient presented to the Emergency Department on the above date and was hospitalized for further evaluation of their emergent condition. - New Patient This patient is new to me today: No - Critical Care Critical Care patient: Yes Total Critical Care Time (in minutes): 35 Critical Care Statement: The care of this patient involved high complexity decision making to prevent further life threatening deterioration of the patient 's condition and/or to evaluate & treat vital organ system(s) failure or risk of failure.
--- NOTE | 2017-03-04 16:25 | PN ---
Teaching Attending Note Name of Resident: Gloria Zaldivar ATTENDING PHYSICIAN STATEMENT I saw and evaluated the patient. I reviewed the resident's note and discussed the case with the resident. I agree with the resident's findings and plan as documented. SUBJECTIVE: seen at 9:45 am . denied any ain at that time. HOT PATCHER was called later and pt was hypoxic Pulled PEG this am OBJECTIVE: awake in am, NAD . traceostomy masc on neck. minimal erytehma and edema around sight CV: RRR Lungs: clear anteriorly Ext: a clean dressing on R anterior thigh, and clean dresign with xeroform on L thigh ABd: soft, ND, decreased BS.rader in epigastric area instead of removed PEG ASSESSMENT AND PLAN: 56 y/o gentleman with h/o Nicotine dependence, HTn, CAD s/p Stenting , hyperlipidemia and recently diagnosed R lung adenocarcinoma who presented for pulmonary resection. 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 likely acute resp failure is due to mucus plugging - d/w ICU staff, possible extubation today - pain control - no more fever . Monitor leukocytosis 2- Agitation: due to pain , recent sedation and possible withdrawal. Possible acute delirium - cont librium . will taper soon - ativan PRN 3- Nutrition: pulled his G tube, replaced today by ICU staff 4- HTN -cont norvasc 5- Acute blood loss anemia. stable HB 6- Fever: resolved . leukocytosis improved .cxray with no infiltrate, surgery site does not look cellulitic - follow cultures - c diff if diarrhea - if fever returns , will do further investigations and consult ID 7- CAD : cont ASpirin through PEG DVT px with heparin Critical Care Total Critical Care Time (in minutes): 40 Critical Care Statement: The care of this patient involved high complexity decision making to prevent further life threatening deterioration of the patient 's condition and/or to evaluate & treat vital organ system(s) failure or risk of failure.
[2017-03-04] MEDS ORDERED: clonazePAM 0.5 MG TABLET PO PRN (17:45)
--- NOTE | 2017-03-04 17:57 | PN ---
Progress Note (short form) - Note Progress Note: seen and examined. events noted. awake and responsive, seems calm. wounds CDI, drains serous, tracheostome intact with ET tube intact. abdomen soft and nontender, rader in stomach WBC down to 15 AXR shows G-tube in stomach A/P: Likely had mucous plug causing desaturation. Extubate when meets criteria and suction frequently. Bronchoscopy if desaturates again. OOB to chair and ambulate as soon as possible. Change librium to clonipine and monitor mental status. Restart feeds. Contrast swallow study when awake and cooperative.
--- NOTE | 2017-03-04 21:39 | PN ---
Progress Note (short form) - Note Progress Note: D/C DNR/DNI Family was contacted by surgeon who wants patient full code.
[2017-03-04] MEDS: CIPROFLOXACIN 0.3% EYE DROPS 5 ML BOTTLE OD SCH (23:10)
[2017-03-04] MEDS: SODIUM CHLORIDE 0.45%/POT 20 MEQ/1,000 ML INFUS.BAG IV SCH (23:10)
[2017-03-04] MEDS ORDERED: PT OWN MED DRAWER 7, Y5N ONE (23:12)
[2017-03-04] MEDS ORDERED: chlordiazePOXIDE HCL 25 MG CAPSULE ONE (23:12)
[2017-03-05] MEDS: HYDROmorphone HCL CARPU-JECT 2 MG/1 ML DISP.SYRIN IVPUSH PRN (06:35)
[2017-03-05] MEDS: HEPARIN NA (PORCINE) 5,000 UNITS/ML 1ML VIAL SQ SCH ×3 (06:36→21:02)
[2017-03-05 07:05] LABS: BASO % 0.8 % (0-2.0); EOS % 5.1 % (0-4.5); MCH 30.4 pg (25.7-33.7); MCHC 32.2 g/dl (32.0-35.9); MEAN CELL VOLUME 94.4 fl (80-96); MEAN PLT VOLUME 9.6 fl (7.5-11.1); NEUT % 72.5 % (42.8-82.8); PLATELET COUNT 510 K/MM3 (134-434); RDW 14.2 % (11.9-15.9); WHITE BLOOD COUNT 16.5 K/mm3 (4.0-10.0)
[2017-03-05 07:30] LABS: ALBUMIN 2.4 g/dl (3.4-5.0); ANION GAP 9 (8-16); CALCIUM 8.2 mg/dL (8.5-10.1); CO2 25 mmol/L (21-32); GLUCOSE,RANDOM 112 mg/dL (74-106)
[2017-03-05 07:33] LABS: ALK PHOS 90 U/L (45-117); BILIRUBIN,TOTAL 0.4 mg/dL (0.2-1.0); CREATININE 0.9 mg/dL (0.7-1.3); SGOT/AST 27 U/L (15-37); SGPT/ALT 38 U/L (12-78)
--- NOTE | 2017-03-05 08:45 | PN ---
Physical Exam: SUBJECTIVE: Patient seen and examined. Pt resting on exam, less agitated. S/p extubation at 9pm last night. G-tube replaced and tube feeding running. No fever, chills. Pt denies pain. No events overnight. OBJECTIVE: Vital Signs Period Temp Pulse Resp BP Sys/Clay Pulse Ox Last 24 Hr 98.2 F-99.4 F 71-106 14-28 101-186/66-97 98-100 GENERAL: NAD. NECK: Minimal erythema and edema around tracheostome. Incision C/D/I. 2 JPs with serosangiunous drainage (10ml drainage from Left, 15ml drainage from Right) . Tracheostome is patent. LUNGS: Breath sounds equal, clear to anterior auscultation bilaterally, no accessory muscle use. HEART: Regular rate and rhythm, S1, S2 without murmur, rub or gallop. ABDOMEN: Soft, nontender, nondistended. G-tube in place, tube feeding running. Incision C/D/I. EXTREMITIES: Warm, well-perfused, no edema. Dimitri SCDs in place. Clean dressing to Right anterior thigh and clean dressing with Xeroform to Left anterior thigh. NEURO: Pt able to move all extremities. PSYCH: Normal mood, normal affect. SKIN: Warm, dry, normal turgor, no rashes or lesions noted Laboratory Results - last 24 hr 03/04/17 03/04/17 03/05/17 06:25 14:35 05:22 WBC 16.5 H RBC 3.70 L Hgb 11.2 L Hct 34.9 L MCV 94.4 MCH 30.4 MCHC 32.2 RDW 14.2 Plt Count 510 H MPV 9.6 Neutrophils % 72.5 Lymphocytes % 14.0 D Monocytes % 7.6 Eosinophils % 5.1 H Basophils % 0.8 Puncture Site Right radial ABG pH 7.39 ABG pCO2 at Pt Temp 39.2 ABG pO2 at Pt Temp 110.0 H D ABG HCO3 23.5 ABG O2 Sat (Measured) 98.1 ABG O2 Content 16.3 ABG Base Excess -0.7 Angel Test Positive Oxygen Flow Rate 60 PEEP 5.0 Sodium 143 Potassium 4.0 Chloride 106 Carbon Dioxide 27 Anion Gap 10 BUN 11 Creatinine 0.9 Creat Clearance w eGFR > 60 Random Glucose 116 H Calcium 8.2 L Total Bilirubin 0.6 D AST 25 ALT 34 Alkaline Phosphatase 89 Total Protein 6.9 Albumin 2.4 L Active Medications Generic Name Dose Route Start Last Admin Trade Name Swapnilq PRN Reason Stop Dose Admin Acetaminophen 650 mg 02/21/17 20:01 02/27/17 09:05 Tylenol Oral Solution - PO 650 mg Q6H PRN Administration FEVER OR PAIN Albuterol Sulfate 1 amp 03/04/17 12:49 Ventolin 0.5% - NEB Q4H PRN SHORT OF BREATH/WHEEZING Allopurinol 100 mg 02/22/17 17:28 03/04/17 14:33 Zyloprim - PEG 100 mg DAILY JUNIOR Administration Amlodipine Besylate 10 mg 02/23/17 16:45 03/04/17 14:33 Norvasc - PEG 10 mg DAILY JUNIOR Administration Aspirin 81 mg 02/23/17 10:00 03/04/17 14:33 Asa - PEG 81 mg DAILY JUNIOR Administration Bacitracin 1 applic 02/26/17 11:15 03/04/17 22:14 Bacitracin - TP 1 applic BID JUNIOR Administration Ciprofloxacin 1 drop 02/23/17 18:45 03/04/17 23:10 Ciloxan 0.3% Eye Drops - OD Not Given DAILY JUNIOR Clonazepam 0.5 mg 03/04/17 17:45 03/04/17 23:18 Klonopin - PO 0.5 mg BID PRN Administration ANXIETY Folic Acid 1 mg 02/21/17 10:00 03/04/17 14:34 Folic Acid - PO 1 mg DAILY JUNIOR Administration Haloperidol 2.5 mg 02/28/17 02:14 03/01/17 11:38 Haldol - GT 2.5 mg Q6H PRN Administration AGITATION Heparin Sodium (Porcine) 5,000 unit 02/21/17 14:00 03/05/17 06:36 Heparin - SQ 5,000 unit TID JUNIOR Administration Hydromorphone HCl 1 mg 03/01/17 06:32 03/05/17 06:35 Dilaudid Injection - IVPUSH 1 mg Q3H PRN Administration PAIN Potassium Chloride/Sodium Chloride 20 meq in 1,000 mls @ 83 mls/hr 03/03/17 20 :30 03/04/17 23:10 1/2ns+20meq Kcl IV Not Given ASDIR JUNIOR Lorazepam 2 mg 03/03/17 23:08 03/04/17 12:37 Ativan Injection - IVPUSH 2 mg Q4H PRN Administration AGITATION Metoprolol Tartrate 25 mg 03/03/17 13:00 03/04/17 22:13 Lopressor - PO 25 mg BID JUNIOR Administration Multivitamins/Minerals/Vitamin C 1 tab 02/21/17 10:00 03/04/17 14:33 Tab-A-Vit - PO 1 tab DAILY JUNIOR Administration Pantoprazole Sodium 40 mg 03/04/17 10:00 03/04/17 14:34 Protonix Packets For Oral Suspension - GT 40 mg DAILY JUNIOR Administration Sodium Chloride 2 spray 02/23/17 18:40 02/23/17 21:55 [place] Nasal [place] - NS 2 spray BID PRN Administration NASAL CONGESTION IMAGIN03/04/17 Ab Xray -> G-tube replaced, balloon just below gastric fundus in the gastric body. 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 # acute hypoxic respiratory failure - likely 2/2 mucous plug - mucomyst with albuterol nebs added # Laryngeal squamous cell Ca s/p laryngectomy with left anterolateral thigh flap pharyngeal reconstruction on 02/20/17 - POD 13: Trach matured to skin, intact, patent, no secretions. Flap and tissues viable. - monitor ANNA output - serosanguinous drainage. ANNA drains to be removed once output < 20ml/day - Donor site graft dressing changes with bacitracin and xeroform. - suction tracheostome prn - OOB to chair as tolerated when less agitated - Pt is intermittently agitated and requires restraints to prevent self harm - Haloperidol prn and Ativan prn for agitation - continue Dilaudid prn for pain - Neurontin 300mg TID added for pain # agitation - As pt was on Librium for > 3 days, taper is required - Librium 15mg (lower dose) TID added for today - Klonipin D/Michael for while pt on Librium taper # leukocytosis - stable - CXRs show no infiltrates - surgery site sans inflammation - continue to monitor off antibiotics - repeat blood cultures (-) x 48 hrs - f/u sputum culture and gram stain # htn - continue Norvasc and Lopressor - Enalapril given once at 2:45pm today for BP 185/92 with good effect # CAD s/p 2 stents - continue ASA # gout - continue Allopurinol # 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 Gilmore as outpatient # FEN - Fluids: encourage po - Electolytes: wnl, continue to monitor. - Nutrition: clear liquids # Prophylaxis - DVT ppx with Heparin 5,000U SQ TID - GI ppx with Protonix 40mg GT daily - deconditioning ppx with bedside PT Visit type - Emergency Visit Emergency Visit: Yes ED Registration Date: 02/11/17 Care time: The patient presented to the Emergency Department on the above date and was hospitalized for further evaluation of their emergent condition. - New Patient This patient is new to me today: No - Critical Care Critical Care patient: Yes Total Critical Care Time (in minutes): 35 Critical Care Statement: The care of this patient involved high complexity decision making to prevent further life threatening deterioration of the patient 's condition and/or to evaluate & treat vital organ system(s) failure or risk of failure.
[2017-03-05] MEDS: ASPIRIN 81 MG CHEWABLE TABLETS PEG SCH (09:08)
[2017-03-05] MEDS: METOPROLOL TARTRATE 25 MG TABLET (FP) PO SCH ×2 (09:08→21:02)
[2017-03-05] MEDS: MULTIVITAMINS (DAILY MVI) TABLET (FP) PO SCH (09:08)
[2017-03-05] MEDS: amLODIPine BESYLATE 10 MG TABLET (FP) PEG SCH (09:08)
[2017-03-05] MEDS: PANTOPRAZOLE SOD 40 MG SUSPENSION PACKET GT SCH (09:08)
[2017-03-05] MEDS: FOLIC ACID 1 MG TABLET (FP) PO SCH (09:08)
[2017-03-05] MEDS: ALLOPURINOL 100 MG TABLET (FP) PEG SCH (09:08)
[2017-03-05] MEDS: BACITRACIN 15 GM TUBE TOPICAL OINTMENT TP SCH ×2 (09:09→21:03)
--- NOTE | 2017-03-05 10:56 | PN ---
Teaching Attending Note Name of Resident: Miguel Noriega ATTENDING PHYSICIAN STATEMENT I saw and evaluated the patient. I reviewed the resident's note and discussed the case with the resident. I agree with the resident's findings and plan as documented. SUBJECTIVE: Patient seen and examined in the ICU. Events from yesterday noted. Drowsy but arousbale. Remains with intermittent agitation. Patient was previously on multiple meds: Seroquel, Zoloft, Gabapentinm, which he has not been getting. OBJECTIVE: Intake & Output 03/02/17 03/03/17 03/04/17 03/05/17 23:59 23:59 23:59 23:59 Intake Total 500 2029 203 1001 Output Total 3320 413 25 25 Balance -2820 1617 2010 976 Weight 217 lb 6.4 oz 211 lb 6.4 oz 208 lb 3 oz 214 lb 2 oz Last Vital Signs Temp Pulse Resp BP Pulse Ox 99.3 F 82 19 186/97 100 03/05/17 06:00 03/05/17 09:07 03/05/17 09:00 03/05/17 06:00 03/05/17 09:07 Active Medications Acetaminophen (Tylenol Oral Solution -) 650 mg PO Q6H PRN PRN Reason: FEVER OR PAIN Last Admin: 02/27/17 09:05 Dose: 650 mg Albuterol Sulfate (Ventolin 0.5% -) 1 amp NEB Q4H PRN PRN Reason: SHORT OF BREATH/WHEEZING Allopurinol (Zyloprim -) 100 mg PEG DAILY [facility] Last Admin: 03/05/17 09:08 Dose: 100 mg Amlodipine Besylate (Norvasc -) 10 mg PEG DAILY [facility] Last Admin: 03/05/17 09:08 Dose: 10 mg Aspirin (Asa -) 81 mg PEG DAILY [facility] Last Admin: 03/05/17 09:08 Dose: 81 mg Bacitracin (Bacitracin -) 1 applic TP BID [facility] Last Admin: 03/05/17 09:09 Dose: 1 applic Chlordiazepoxide HCl (Librium -) 15 mg PO Q8H [facility] Folic Acid (Folic Acid -) 1 mg PO DAILY [facility] Last Admin: 03/05/17 09:08 Dose: 1 mg Haloperidol (Haldol -) 2.5 mg GT Q6H PRN PRN Reason: AGITATION Last Admin: 03/01/17 11:38 Dose: 2.5 mg Heparin Sodium (Porcine) (Heparin -) 5,000 unit SQ TID JUNIOR Last Admin: 03/05/17 06:36 Dose: 5,000 unit Hydromorphone HCl (Dilaudid Injection -) 1 mg IVPUSH Q3H PRN PRN Reason: PAIN Last Admin: 03/05/17 06:35 Dose: 1 mg Lorazepam (Ativan Injection -) 2 mg IVPUSH Q4H PRN PRN Reason: AGITATION Last Admin: 03/04/17 12:37 Dose: 2 mg Metoprolol Tartrate (Lopressor -) 25 mg PO BID JUNIOR Last Admin: 03/05/17 09:08 Dose: 25 mg Multivitamins/Minerals/Vitamin C (Tab-A-Vit -) 1 tab PO DAILY JUNIOR Last Admin: 03/05/17 09:08 Dose: 1 tab Pantoprazole Sodium (Protonix Packets For Oral Suspension -) 40 mg GT DAILY [facility] Last Admin: 03/05/17 09:08 Dose: 40 mg Sodium Chloride ([place] Nasal [place] -) 2 spray NS BID PRN PRN Reason: NASAL CONGESTION Last Admin: 02/23/17 21:55 Dose: 2 spray Gen: Drowsy, but arousable Neck: ANNA drains intact, minimal drainage Heart: RRR Lung: decreased breath sounds at the bases, few scattered rhonchi Abd: soft, nontender, (+) GT, abdominal binder in place Ext: no edema ASSESSMENT AND PLAN: NSCLC - Adenocarcinoma s/p R VATS/Wedge Resection/CT placement now removed 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 HTN CAD Alcohol Abuse/Dependence Laboratory Results - last 24 hr 03/04/17 03/05/17 03/05/17 14:35 05:22 05:22 WBC 16.5 H RBC 3.70 L Hgb 11.2 L Hct 34.9 L MCV 94.4 MCH 30.4 MCHC 32.2 RDW 14.2 Plt Count 510 H MPV 9.6 Neutrophils % 72.5 Lymphocytes % 14.0 D Monocytes % 7.6 Eosinophils % 5.1 H Basophils % 0.8 Puncture Site Right radial ABG pH 7.39 ABG pCO2 at Pt Temp 39.2 ABG pO2 at Pt Temp 110.0 H D ABG HCO3 23.5 ABG O2 Sat (Measured) 98.1 ABG O2 Content 16.3 ABG Base Excess -0.7 Angel Test Positive Oxygen Flow Rate 60 PEEP 5.0 Sodium 141 Potassium 4.6 Chloride 107 Carbon Dioxide 25 Anion Gap 9 BUN 10 Creatinine 0.9 Creat Clearance w eGFR > 60 Random Glucose 112 H Calcium 8.2 L Total Bilirubin 0.4 D AST 27 ALT 38 Alkaline Phosphatase 90 Total Protein 7.0 Albumin 2.4 L - Restart home meds - Enteral feeds - monitoring off antibiotics - pain control - monitor lytes - monitor drainage - aspiration precautions - DVT prophylaxis - rehab/PT - OOB to chair today - Floor with close observation Dr Esquivel Critical care time spent in reviewing chart, evaluating patient and formulating plan - 36 minutes. Problem List - Problems (1) Alcohol dependence Code(s): F10.20 - ALCOHOL DEPENDENCE, UNCOMPLICATED Qualifiers: Substance use status: with intoxication Complication of substance-induced condition: with unspecified complication Qualified Code(s): F10.229 - Alcohol dependence with intoxication, unspecified (2) Cough Code(s): R05 - COUGH (3) Lung cancer Code(s): C34.90 - MALIGNANT NEOPLASM OF UNSP PART OF UNSP BRONCHUS OR LUNG Qualifiers: Laterality: unspecified laterality Lung location: overlapping sites Qualified Code(s): C34.80 - Malignant neoplasm of overlapping sites of unspecified bronchus and lung (4) COPD (chronic obstructive pulmonary disease) Code(s): J44.9 - CHRONIC OBSTRUCTIVE PULMONARY DISEASE, UNSPECIFIED Qualifiers: COPD type: unspecified COPD Qualified Code(s): J44.9 - Chronic obstructive pulmonary disease, unspecified (5) Nicotine dependence Code(s): F17.200 - NICOTINE DEPENDENCE, UNSPECIFIED, UNCOMPLICATED
[2017-03-05] MEDS: chlordiazePOXIDE 5 MG CAPSULE PO SCH ×2 (11:36→18:02)
[2017-03-05] MEDS: SERTRALINE HCL 50 MG TABLET (FP) PO SCH (11:50)
[2017-03-05] MEDS: QUEtiapine FUMARATE 25 MG TABLET (FP) PO SCH ×2 (11:50→21:02)
[2017-03-05] MEDS: GABAPENTIN 300 MG CAPSULE (FP) PO SCH ×2 (11:52→21:02)
--- NOTE | 2017-03-05 13:06 | PN ---
Physical Exam: SUBJECTIVE: Patient seen and examined at bedside. Pt was intubated after becoming hypoxic and has since been extubated. No other events. Pt is nonverbal. In no apparent distress. OBJECTIVE: Vital Signs Period Temp Pulse Resp BP Sys/Clay Pulse Ox Last 24 Hr 99 F-99.4 F 82-106 14-28 101-186/66-97 98-100 GENERAL: The patient is rousable to auditory stimuli, in no apparent distress. HEAD: Normal with no signs of trauma. EYES: sclera anicteric, conjunctiva clear. No ptosis. ENT: oropharynx clear without exudates, moist mucous membranes. NECK:Tracheostomy w/ trach collar. JPs with serosang fluid. supple. LUNGS: Breath sounds equal, clear to auscultation bilaterally, no wheezes, no crackles, no accessory muscle use. HEART: Regular rate and rhythm, S1, S2 without murmur, rub or gallop. ABDOMEN: Incision sites CDI. Soft, nontender, nondistended, normoactive bowel sounds, no guarding, no rebound, no hepatosplenomegaly, no masses. EXTREMITIES: 2+ pulses, warm, well-perfused, no edema. NEUROLOGICAL: nonverbal PSYCH: nonverbal SKIN: Warm, dry, normal turgor, no rashes or lesions noted Laboratory Results - last 24 hr 03/04/17 03/05/17 03/05/17 14:35 05:22 05:22 WBC 16.5 H RBC 3.70 L Hgb 11.2 L Hct 34.9 L MCV 94.4 MCH 30.4 MCHC 32.2 RDW 14.2 Plt Count 510 H MPV 9.6 Neutrophils % 72.5 Lymphocytes % 14.0 D Monocytes % 7.6 Eosinophils % 5.1 H Basophils % 0.8 Puncture Site Right radial ABG pH 7.39 ABG pCO2 at Pt Temp 39.2 ABG pO2 at Pt Temp 110.0 H D ABG HCO3 23.5 ABG O2 Sat (Measured) 98.1 ABG O2 Content 16.3 ABG Base Excess -0.7 Angel Test Positive Oxygen Flow Rate 60 PEEP 5.0 Sodium 141 Potassium 4.6 Chloride 107 Carbon Dioxide 25 Anion Gap 9 BUN 10 Creatinine 0.9 Creat Clearance w eGFR > 60 Random Glucose 112 H Calcium 8.2 L Total Bilirubin 0.4 D AST 27 ALT 38 Alkaline Phosphatase 90 Total Protein 7.0 Albumin 2.4 L Active Medications Generic Name Dose Route Start Last Admin Trade Name Freq PRN Reason Stop Dose Admin Acetaminophen 650 mg 02/21/17 20:01 02/27/17 09:05 Tylenol Oral Solution - PO 650 mg Q6H PRN Administration FEVER OR PAIN Albuterol Sulfate 1 amp 03/04/17 12:49 Ventolin 0.5% - NEB Q4H PRN SHORT OF BREATH/WHEEZING Allopurinol 100 mg 02/22/17 17:28 03/05/17 09:08 Zyloprim - PEG 100 mg DAILY JUNIOR Administration Amlodipine Besylate 10 mg 02/23/17 16:45 03/05/17 09:08 Norvasc - PEG 10 mg DAILY JUNIOR Administration Aspirin 81 mg 02/23/17 10:00 03/05/17 09:08 Asa - PEG 81 mg DAILY JUNIOR Administration Bacitracin 1 applic 02/26/17 11:15 03/05/17 09:09 Bacitracin - TP 1 applic BID JUNIOR Administration Chlordiazepoxide HCl 15 mg 03/05/17 10:00 03/05/17 11:36 Librium - PO 15 mg Q8H JUNIOR Administration Folic Acid 1 mg 02/21/17 10:00 03/05/17 09:08 Folic Acid - PO 1 mg DAILY JUNIOR Administration Gabapentin 300 mg 03/05/17 11:30 03/05/17 11:52 Neurontin - PO 300 mg TID JUNIOR Administration Haloperidol 2.5 mg 02/28/17 02:14 03/01/17 11:38 Haldol - GT 2.5 mg Q6H PRN Administration AGITATION Heparin Sodium (Porcine) 5,000 unit 02/21/17 14:00 03/05/17 06:36 Heparin - SQ 5,000 unit TID JUNIOR Administration Hydromorphone HCl 1 mg 03/01/17 06:32 03/05/17 06:35 Dilaudid Injection - IVPUSH 1 mg Q3H PRN Administration PAIN Lorazepam 2 mg 03/03/17 23:08 03/04/17 12:37 Ativan Injection - IVPUSH 2 mg Q4H PRN Administration AGITATION Metoprolol Tartrate 25 mg 03/03/17 13:00 03/05/17 09:08 Lopressor - PO 25 mg BID JUNIOR Administration Multivitamins/Minerals/Vitamin C 1 tab 02/21/17 10:00 03/05/17 09:08 Tab-A-Vit - PO 1 tab DAILY JUNIOR Administration Pantoprazole Sodium 40 mg 03/04/17 10:00 03/05/17 09:08 Protonix Packets For Oral Suspension - GT 40 mg DAILY JUNIOR Administration Quetiapine Fumarate 25 mg 03/05/17 11:00 03/05/17 11:50 Seroquel - PO 25 mg HS JUNIOR Administration Sertraline HCl 50 mg 03/05/17 11:00 03/05/17 11:50 Zoloft - PO 50 mg DAILY JUNIOR Administration Sodium Chloride 2 spray 02/23/17 18:40 02/23/17 21:55 [place] Nasal [place] - NS 2 spray BID PRN Administration NASAL CONGESTION ASSESSMENT/PLAN: Pt is a 56 M w/ PMH EtOH abuse, R lung CA, CAD s/p 2 stents, HTN, HLD who was intially sent to the hospital for suspected lung CA. The patient was found to have Lung CA requiring wedge resection and VATS, as well as a laryngeal CA requiring free flap reconstruction of the pharynx and tracheostomy. In the ICU, the pt's main problem has been agitation, pulling lines, etc... #NSCLCA -AdenoCA w/ LN mets -s/p VATS w/ wedge resection -Surgical site healing well #CA of larynx/pharynx -s/p pharyngectomy -free flap reconstruction -drains are functioning well. Nonpurulent -Tracheostomy continues to function well with trach collar #Pt pulled G-tube -Pt now has abdominal binder inplace, which seems to be effective in preventing him from pulling the G-tube -hold tube feeds until position confirmed. #HTN -Norvasc -metoprolol BID #ETOH abuse/dependence -Librium -Haldol -via G-tube once useable again #CAD -ASA #Depression/Anxiety -Pt has been on Seroquel, Zoloft, Neurontin at home -Restarting those meds at low dose #FEN -D/c fluids sa pt get tube feeds -lytes wnl -Pivot tube feeds #PPx -Heparin #Dispo -Transfer to Tele. Requesting bed near nurses' station. Pt should be OOB to chair Miguel Noriega MD PGY-1 ICU case discussed with attending Visit type - Emergency Visit Emergency Visit: No - New Patient This patient is new to me today: No - Critical Care Critical Care patient: No - Discharge Referral Referred to [facility] Med P.C.: No
[2017-03-05] MEDS ORDERED: ACETYLCYSTEINE 20% 200MG/ML 30 ML VIAL *FOR ORAL / INH USE ONLY NEB ONE ×2 (14:21→16:59)
--- NOTE | 2017-03-05 15:15 | PN ---
Teaching Attending Note Name of Resident: Gloria Zaldivar ATTENDING PHYSICIAN STATEMENT I saw and evaluated the patient. I reviewed the resident's note and discussed the case with the resident. I agree with the resident's findings and plan as documented. SUBJECTIVE: no events over night. less reactive today . RN called this afternoon for another episode of desaturation OBJECTIVE: tachypnic, sat O2 in 80s . mild distress CV: RRR Lungs: clear anteriorly Ext: a clean dressing on R anterior thigh, and clean wound on L thigh wound with xeroform on L thigh ABd: soft, ND, decreased BS. PEG in epigastric area with Moves all his extremities ASSESSMENT AND PLAN: 56 y/o gentleman with h/o Nicotine dependence, HTn, CAD s/p Stenting , hyperlipidemia and recently diagnosed R lung adenocarcinoma who presented for pulmonary resection. 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 miranda. Possibly needs a trach. suction add mucomyst with Albuterol Nebs 2- Laryngeal SCC s/p larynegectomy, with flap reconstruction: - con to monitor site - Possible trach today 3- Agitation: due to pain , recent sedation and possible withdrawal. Possible acute delirium - Librium was d/c yesterday, but he was on it for more than three days standing dosing. will resume at a lower dose and taper ( 15 mg TID today x 2 days then taper ) - DC klonopin 3- Nutrition: pulled his G tube, replaced today by ICU staff 4- HTN -cont norvasc and Metoprolol. given enalapril once today 5- Acute blood loss anemia. stable HB 6- Fever: resolved . stable leukocytosis .cxray with no infiltrate, surgery site does not look cellulitic - follow cultures - c diff if diarrhea - last urine cx showed Enterococcus Colacae . he received Zosyn x 6 days. will repeat urine cx . 7- CAD : cont ASpirin through PEG DVT px with heparin Still has periods of agitation and tries to pull his tubes. will cont 1:1 observation
[2017-03-05] MEDS: ENALAPRIL MALEATE 10 MG TABLET (FP) PO SCH (15:46)
--- NOTE | 2017-03-05 16:35 | PN ---
Progress Note (short form) - Note Progress Note: seen and examined. Size 8 shiley tracheostomy tube placed into tracheostome without difficulty. saturating well. responding well to conversation but still drowsy. neck flaps well-appearing and wounds CDI, drains serous. Abdomen soft and nontender, g-tube in place WBC 16 CXR clear Stable. Suction as needed. Sit up bed. OOB to chair when tolerate. Restart G -tube feeds. Trial of clear liquids PO (discussed with Dr. Olivares who agrees) --if liquids seen coming into the drains then stop. I had a discussion with his sister and mother who agreed to have DNR rescinded for the duration of this hospitalization. 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 They do not want to inhibit resuscitative efforts should he need them on this hospitalization.
[2017-03-06] MEDS: ACETYLCYSTEINE 20% 200MG/ML 30 ML VIAL *FOR ORAL / INH USE ONLY NEB SCH ×2 (00:18→06:46)
[2017-03-06] MEDS: ALBUTEROL SO4 0.5 % INH SOLN 2.5 MG/0.5 ML VIAL.NEB. NEB PRN ×4 (00:19→22:35)
[2017-03-06] MEDS: chlordiazePOXIDE 5 MG CAPSULE PO SCH ×3 (01:15→22:06)
[2017-03-06] MEDS: HYDROmorphone HCL CARPU-JECT 2 MG/1 ML DISP.SYRIN IVPUSH PRN (02:44)
[2017-03-06] MEDS: GABAPENTIN 300 MG CAPSULE (FP) PO SCH ×3 (06:12→22:05)
[2017-03-06] MEDS: HEPARIN NA (PORCINE) 5,000 UNITS/ML 1ML VIAL SQ SCH ×3 (06:12→22:09)
[2017-03-06 06:21] LABS: MCH 30.8 pg (25.7-33.7); MCHC 33.3 g/dl (32.0-35.9); MEAN CELL VOLUME 92.7 fl (80-96); MEAN PLT VOLUME 9.4 fl (7.5-11.1); NEUT % 67.6 % (42.8-82.8); PLATELET COUNT 448 K/MM3 (134-434); WHITE BLOOD COUNT 12.6 K/mm3 (4.0-10.0)
[2017-03-06 06:58] LABS: ALBUMIN 2.2 g/dl (3.4-5.0); ANION GAP 8 (8-16); CO2 26 mmol/L (21-32); CREATININE 0.9 mg/dL (0.7-1.3); GLUCOSE,RANDOM 135 mg/dL (74-106); SGOT/AST 21 U/L (15-37); SGPT/ALT 31 U/L (12-78)
[2017-03-06 06:59] LABS: ALK PHOS 84 U/L (45-117); BILIRUBIN,TOTAL 0.4 mg/dL (0.2-1.0); TOT PROT 6.4 g/dl (6.4-8.2)
[2017-03-06] MEDS: MULTIVITAMINS (DAILY MVI) TABLET (FP) PO SCH (09:08)
[2017-03-06] MEDS: FOLIC ACID 1 MG TABLET (FP) PO SCH (09:09)
[2017-03-06] MEDS: ALLOPURINOL 100 MG TABLET (FP) PEG SCH (09:09)
[2017-03-06] MEDS: SERTRALINE HCL 50 MG TABLET (FP) PO SCH (09:09)
[2017-03-06] MEDS: amLODIPine BESYLATE 10 MG TABLET (FP) PEG SCH (09:09)
[2017-03-06] MEDS: PANTOPRAZOLE SOD 40 MG SUSPENSION PACKET GT SCH (09:09)
[2017-03-06] MEDS: ASPIRIN 81 MG CHEWABLE TABLETS PEG SCH (09:09)
[2017-03-06] MEDS: METOPROLOL TARTRATE 25 MG TABLET (FP) PO SCH ×2 (09:10→22:08)
[2017-03-06] MEDS: BACITRACIN 15 GM TUBE TOPICAL OINTMENT TP SCH ×2 (09:11→22:04)
--- NOTE | 2017-03-06 11:59 | PN ---
Teaching Attending Note Name of Resident: Miguel Noriega ATTENDING PHYSICIAN STATEMENT I saw and evaluated the patient. I reviewed the resident's note and discussed the case with the resident. I agree with the resident's findings and plan as documented. SUBJECTIVE: Patient seen and examined in the ICU. Appears more stable after Trach placement. Drowsy but arousbale. Intake & Output 03/03/17 03/04/17 03/05/17 03/06/17 23:59 23:59 23:59 23:59 Intake Total 2029 2035 2202 630 Output Total 413 25 35 10 Balance 1616 2010 2167 620 Weight 211 lb 6.4 oz 208 lb 3 oz 214 lb 2 oz 210 lb 4 oz Last Vital Signs Temp Pulse Resp BP Pulse Ox 98.2 F 100 H 16 100/88 100 03/06/17 08:00 03/06/17 10:13 03/06/17 10:00 03/06/17 10:00 03/06/17 10:13 Active Medications Acetaminophen (Tylenol Oral Solution -) 650 mg PO Q6H PRN PRN Reason: FEVER OR PAIN Last Admin: 02/27/17 09:05 Dose: 650 mg Acetylcysteine (Mucomyst 20 Oral / Inh Use Only*) 600 mg NEB TID [facility] Last Admin: 03/06/17 06:46 Dose: 600 mg Albuterol Sulfate (Ventolin 0.5% -) 1 amp NEB Q4H PRN PRN Reason: SHORT OF BREATH/WHEEZING Last Admin: 03/06/17 06:46 Dose: 1 amp Allopurinol (Zyloprim -) 100 mg PEG DAILY [facility] Last Admin: 03/06/17 09:09 Dose: 100 mg Amlodipine Besylate (Norvasc -) 10 mg PEG DAILY [facility] Last Admin: 03/06/17 09:09 Dose: 10 mg Aspirin (Asa -) 81 mg PEG DAILY [facility] Last Admin: 03/06/17 09:09 Dose: 81 mg Bacitracin (Bacitracin -) 1 applic TP BID [facility] Last Admin: 03/06/17 09:11 Dose: 1 applic Chlordiazepoxide HCl (Librium -) 15 mg PO Q8H [facility] Last Admin: 03/06/17 09:09 Dose: 15 mg Enalapril Maleate (Vasotec -) 10 mg PO ONCE [facility] Last Admin: 03/05/17 15:46 Dose: 10 mg Folic Acid (Folic Acid -) 1 mg PO DAILY [facility] Last Admin: 03/06/17 09:09 Dose: 1 mg Gabapentin (Neurontin -) 300 mg PO TID [facility] Last Admin: 03/06/17 06:12 Dose: 300 mg Haloperidol (Haldol -) 2.5 mg GT Q6H PRN PRN Reason: AGITATION Last Admin: 03/01/17 11:38 Dose: 2.5 mg Heparin Sodium (Porcine) (Heparin -) 5,000 unit SQ TID [facility] Last Admin: 03/06/17 06:12 Dose: 5,000 unit Hydromorphone HCl (Dilaudid Injection -) 1 mg IVPUSH Q3H PRN PRN Reason: PAIN Last Admin: 03/06/17 02:44 Dose: 1 mg Lorazepam (Ativan Injection -) 2 mg IVPUSH Q4H PRN PRN Reason: AGITATION Last Admin: 03/04/17 12:37 Dose: 2 mg Metoprolol Tartrate (Lopressor -) 25 mg PO BID [facility] Last Admin: 03/06/17 09:10 Dose: 25 mg Multivitamins/Minerals/Vitamin C (Tab-A-Vit -) 1 tab PO DAILY [facility] Last Admin: 03/06/17 09:08 Dose: 1 tab Pantoprazole Sodium (Protonix Packets For Oral Suspension -) 40 mg GT DAILY [facility] Last Admin: 03/06/17 09:09 Dose: 40 mg Quetiapine Fumarate (Seroquel -) 25 mg PO HS [facility] Last Admin: 03/05/17 21:02 Dose: 25 mg Sertraline HCl (Zoloft -) 50 mg PO DAILY [facility] Last Admin: 03/06/17 09:09 Dose: 50 mg Sodium Chloride ([place] Nasal [place] -) 2 spray NS BID PRN PRN Reason: NASAL CONGESTION Last Admin: 02/23/17 21:55 Dose: 2 spray Gen: Drowsy, but arousable Neck: ANNA drains intact, minimal drainage. Trach intact Heart: RRR Lung: decreased breath sounds at the bases, few scattered rhonchi Abd: soft, nontender, (+) GT, abdominal binder in place Ext: no edema Laboratory Results - last 24 hr 03/06/17 03/06/17 06:05 06:05 WBC 12.6 H RBC 3.52 L Hgb 10.9 L Hct 32.6 L MCV 92.7 MCH 30.8 MCHC 33.3 RDW 14.0 Plt Count 448 H MPV 9.4 Neutrophils % 67.6 Lymphocytes % 15.7 Monocytes % 8.7 Eosinophils % 7.0 H Basophils % 1.0 Sodium 141 Potassium 4.2 Chloride 107 Carbon Dioxide 26 Anion Gap 8 BUN 11 Creatinine 0.9 Creat Clearance w eGFR > 60 Random Glucose 135 H D Calcium 8.0 L Total Bilirubin 0.4 AST 21 D ALT 31 Alkaline Phosphatase 84 Total Protein 6.4 Albumin 2.2 L Problem List - Problems (1) Alcohol dependence Code(s): F10.20 - ALCOHOL DEPENDENCE, UNCOMPLICATED Qualifiers: Substance use status: with intoxication Complication of substance-induced condition: with unspecified complication Qualified Code(s): F10.229 - Alcohol dependence with intoxication, unspecified (2) Cough Code(s): R05 - COUGH (3) Lung cancer Code(s): C34.90 - MALIGNANT NEOPLASM OF UNSP PART OF UNSP BRONCHUS OR LUNG Qualifiers: Laterality: unspecified laterality Lung location: overlapping sites Qualified Code(s): C34.80 - Malignant neoplasm of overlapping sites of unspecified bronchus and lung (4) COPD (chronic obstructive pulmonary disease) Code(s): J44.9 - CHRONIC OBSTRUCTIVE PULMONARY DISEASE, UNSPECIFIED Qualifiers: COPD type: unspecified COPD Qualified Code(s): J44.9 - Chronic obstructive pulmonary disease, unspecified (5) Nicotine dependence Code(s): F17.200 - NICOTINE DEPENDENCE, UNSPECIFIED, UNCOMPLICATED ASSESSMENT AND PLAN: NSCLC - Adenocarcinoma s/p R VATS/Wedge Resection/CT placement now removed 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 Problem List - Problems (1) Alcohol dependence Code(s): F10.20 - ALCOHOL DEPENDENCE, UNCOMPLICATED Qualifiers: Substance use status: with intoxication Complication of substance-induced condition: with unspecified complication Qualified Code(s): F10.229 - Alcohol dependence with intoxication, unspecified (2) Cough Code(s): R05 - COUGH (3) Lung cancer Code(s): C34.90 - MALIGNANT NEOPLASM OF UNSP PART OF UNSP BRONCHUS OR LUNG Qualifiers: Laterality: unspecified laterality Lung location: overlapping sites Qualified Code(s): C34.80 - Malignant neoplasm of overlapping sites of unspecified bronchus and lung (4) COPD (chronic obstructive pulmonary disease) Code(s): J44.9 - CHRONIC OBSTRUCTIVE PULMONARY DISEASE, UNSPECIFIED Qualifiers: COPD type: unspecified COPD Qualified Code(s): J44.9 - Chronic obstructive pulmonary disease, unspecified (5) Nicotine dependence Code(s): F17.200 - NICOTINE DEPENDENCE, UNSPECIFIED, UNCOMPLICATED
[2017-03-06] MEDS ORDERED: PT OWN MED DRAWER 7, Y5N ONE (13:37)
[2017-03-06] MEDS: ACETYLCYSTEINE 20% 200MG/ML 4 ML VIAL *FOR ORAL / INH USE ONLY NEB SCH ×2 (14:02→22:35)
--- NOTE | 2017-03-06 14:13 | PN ---
Teaching Attending Note Name of Resident: Gloira Zladivar ATTENDING PHYSICIAN STATEMENT I saw and evaluated the patient. I reviewed the resident's note and discussed the case with the resident. I agree with the resident's findings and plan as documented. SUBJECTIVE: difficult to obtain hx , but no events over night . Trach was placed yesterday OBJECTIVE: NAD , in chair , follows command CV: RRR Lungs: clear bilaterally Ext: a clean dressing on R anterior thigh, and clean wound on L thigh wound with xeroform on L thigh Moves all his extremities to commands. equal pupils m, and reactive to light . no facial droop ASSESSMENT AND PLAN: 56 y/o gentleman with h/o Nicotine dependence, HTn, CAD s/p Stenting , hyperlipidemia and recently diagnosed R lung adenocarcinoma who presented for pulmonary resection. 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 Trach placed yesterday - cont Mucomyst Nebs with Albuterol 2- Laryngeal SCC s/p larynegectomy, with flap reconstruction: - con to monitor site - Neurontin added, watch for sedation 3- Agitation/Acute delirium : improved - cont taper to avoid withdrawal 3- Nutrition: cont TF 4- HTN -cont norvasc and Metoprolol. 5- Acute blood loss anemia. stable HB 6- Fever: resolved . Leukocytosis improved. will hold off repeating U cx 7- CAD: cont ASpirin through PEG DVT px with heparin
--- NOTE | 2017-03-06 14:45 | PN ---
Progress Note (short form) - Note Progress Note: OOB to chair for 3 hours today. Taking sips of clears. As per nursing staff he had a BM also today. Vital Signs Period Temp Pulse Resp BP Sys/Clay Pulse Ox Last 24 Hr 97.8 F-98.5 F 73-100 13-21 100-151/70-97 99-100 GEN: Alert and responds appropriately verbal ques. ABD: soft, non-distended, non-tender. [place] removed from midline abd incision which is C/d/i and steri-strips applied. Heent: demond in tact with decreased swelling overall, no erythema or drainaged. Trach in place with trach collar. Right chest: posterior demond removed. All incisions x3 c/d/i LE: no calf tenderness or swelling noted b/l Thigh: left: graft uptake good Right: dry xeroform with healing tissue visable from edges of peeling xeroform CBC, BMP 03/06/17 06:05 03/06/17 06:05 A/P: POD#14 s/p laryngectomy with left anterolateral thigh flap pharyngeal recnstruction, STSG from right thigh to left thigh Pt oob today to chair with PT Tolerating clears/continue GT feeds DVT ppx with heparin SQ/aspirin Continue suctioning of trach secretions Continue ANNA's to bulb self suction
--- NOTE | 2017-03-06 15:19 | PN ---
Physical Exam: SUBJECTIVE: Patient seen and examined at bedside. Pt was intubated after becoming hypoxic and has since been extubated. No other events. Pt is nonverbal. In no apparent distress. OOB to chair today. OBJECTIVE: Vital Signs Period Temp Pulse Resp BP Sys/Clay Pulse Ox Last 24 Hr 97.8 F-98.5 F 73-100 13-21 100-151/70-97 99-100 GENERAL: The patient is rousable to auditory stimuli, in no apparent distress. HEAD: Normal with no signs of trauma. EYES: sclera anicteric, conjunctiva clear. No ptosis. ENT: oropharynx clear without exudates, moist mucous membranes. NECK:Tracheostomy w/ trach collar and tube in place. JPs with serosang fluid. supple. LUNGS: Breath sounds equal, clear to auscultation bilaterally, no wheezes, no crackles, no accessory muscle use. HEART: Regular rate and rhythm, S1, S2 without murmur, rub or gallop. ABDOMEN: Incision sites CDI. Soft, nontender, nondistended, normoactive bowel sounds, no guarding, no rebound, no hepatosplenomegaly, no masses. EXTREMITIES: 2+ pulses, warm, well-perfused, no edema. NEUROLOGICAL: nonverbal PSYCH: nonverbal SKIN: Warm, dry, normal turgor, no rashes or lesions noted Laboratory Results - last 24 hr 03/06/17 03/06/17 06:05 06:05 WBC 12.6 H RBC 3.52 L Hgb 10.9 L Hct 32.6 L MCV 92.7 MCH 30.8 MCHC 33.3 RDW 14.0 Plt Count 448 H MPV 9.4 Neutrophils % 67.6 Lymphocytes % 15.7 Monocytes % 8.7 Eosinophils % 7.0 H Basophils % 1.0 Sodium 141 Potassium 4.2 Chloride 107 Carbon Dioxide 26 Anion Gap 8 BUN 11 Creatinine 0.9 Creat Clearance w eGFR > 60 Random Glucose 135 H D Calcium 8.0 L Total Bilirubin 0.4 AST 21 D ALT 31 Alkaline Phosphatase 84 Total Protein 6.4 Albumin 2.2 L Active Medications Generic Name Dose Route Start Last Admin Trade Name Freq PRN Reason Stop Dose Admin Acetaminophen 650 mg 02/21/17 20:01 02/27/17 09:05 Tylenol Oral Solution - PO 650 mg Q6H PRN Administration FEVER OR PAIN Acetylcysteine 600 mg 03/06/17 13:39 03/06/17 14:02 Mucomyst 20 Oral / Inh Use Only* NEB 600 mg TID JUNIOR Administration Albuterol Sulfate 1 amp 03/05/17 19:48 03/06/17 14:02 Ventolin 0.5% - NEB 1 amp Q4H PRN Administration SHORT OF BREATH/WHEEZING Allopurinol 100 mg 02/22/17 17:28 03/06/17 09:09 Zyloprim - PEG 100 mg DAILY JUNIOR Administration Amlodipine Besylate 10 mg 02/23/17 16:45 03/06/17 09:09 Norvasc - PEG 10 mg DAILY JUNIOR Administration Aspirin 81 mg 02/23/17 10:00 03/06/17 09:09 Asa - PEG 81 mg DAILY [facility] Administration Bacitracin 1 applic 02/26/17 11:15 03/06/17 09:11 Bacitracin - TP 1 applic BID JUNIOR Administration Chlordiazepoxide HCl 15 mg 03/05/17 10:00 03/06/17 09:09 Librium - PO 15 mg Q8H JUNIOR Administration Enalapril Maleate 10 mg 03/05/17 14:45 03/05/17 15:46 Vasotec - PO 10 mg ONCE JUNIOR Administration Folic Acid 1 mg 02/21/17 10:00 03/06/17 09:09 Folic Acid - PO 1 mg DAILY [facility]UN[facility] Administration Gabapentin 300 mg 03/05/17 11:30 03/06/17 13:55 Neurontin - PO 300 mg TID JUNIOR Administration Heparin Sodium (Porcine) 5,000 unit 02/21/17 14:00 03/06/17 13:52 Heparin - SQ 5,000 unit TID JUNIOR Administration Hydromorphone HCl 1 mg 03/01/17 06:32 03/06/17 02:44 Dilaudid Injection - IVPUSH 1 mg Q3H PRN Administration PAIN Metoprolol Tartrate 25 mg 03/03/17 13:00 03/06/17 09:10 Lopressor - PO 25 mg BID JUNIOR Administration Multivitamins/Minerals/Vitamin C 1 tab 02/21/17 10:00 03/06/17 09:08 Tab-A-Vit - PO 1 tab DAILY JUNIOR Administration Pantoprazole Sodium 40 mg 03/04/17 10:00 03/06/17 09:09 Protonix Packets For Oral Suspension - GT 40 mg DAILY JUNIOR Administration Quetiapine Fumarate 25 mg 03/05/17 11:00 03/05/17 21:02 Seroquel - PO 25 mg HS JUNIOR Administration Sertraline HCl 50 mg 03/05/17 11:00 03/06/17 09:09 Zoloft - PO 50 mg DAILY JUNIOR Administration Sodium Chloride 2 spray 02/23/17 18:40 02/23/17 21:55 [place] Nasal [place] - NS 2 spray BID PRN Administration NASAL CONGESTION ASSESSMENT/PLAN: Pt is a 56 M w/ PMH EtOH abuse, R lung CA, CAD s/p 2 stents, HTN, HLD who was intially sent to the hospital for suspected lung CA. The patient was found to have Lung CA requiring wedge resection and VATS, as well as a laryngeal CA requiring free flap reconstruction of the pharynx and tracheostomy. In the ICU, the pt's main problem has been agitation, pulling lines, etc... He appears to be improving, though still needs a high level of attention. #NSCLCA -AdenoCA w/ LN mets -s/p VATS w/ wedge resection -Surgical site healing well #CA of larynx/pharynx -s/p pharyngectomy -free flap reconstruction -drains are functioning well. Nonpurulent -Tracheostomy tube in place -Tracheostomy continues to function well with trach collar and trach tube #Pt pulled G-tube -Pt now has abdominal binder inplace, which seems to be effective in preventing him from pulling the G-tube -hold tube feeds until position confirmed. #HTN -Norvasc -metoprolol BID #ETOH abuse/dependence -Librium -Haldol -Pt was restarted on home meds. Haldol has not been required -via G-tube once useable again #CAD -ASA #Depression/Anxiety -Pt has been on Seroquel, Zoloft, Neurontin at home -Restarting those meds at low dose #FEN -D/c fluids sa pt get tube feeds -lytes wnl -Pivot tube feeds #PPx -Heparin #Dispo -Transfer to Tele. Requesting bed near nurses' station. Pt should be OOB to chair Miguel Noriega MD PGY-1 ICU case discussed with attending Visit type - Emergency Visit Emergency Visit: No - New Patient This patient is new to me today: No - Critical Care Critical Care patient: No - Discharge Referral Referred to [facility] Med P.C.: No
--- NOTE | 2017-03-06 16:21 | PN ---
Physical Exam: SUBJECTIVE: Patient seen and examined. Pt OOB to chair. Pt denies pain. No events overnight. OBJECTIVE: Vital Signs Period Temp Pulse Resp BP Sys/Clay Pulse Ox Last 24 Hr 97.8 F-98.5 F 73-100 13-21 100-151/70-97 99-100 GENERAL: NAD, OOB to chair. NECK: Tracheostomy tube present. Minimal erythema and edema around tracheostome. Incision C/D/I. 2 JPs with serosangiunous drainage. LUNGS: Breath sounds equal, clear to auscultation bilaterally, no accessory muscle use. HEART: Regular rate and rhythm, S1, S2 without murmur, rub or gallop. ABDOMEN: Soft, nontender, nondistended. G-tube in place, tube feeding running. Incision C/D/I. EXTREMITIES: Warm, well-perfused, no edema. Clean dressing to Right anterior thigh and clean dressing with Xeroform to Left anterior thigh. NEURO: Pt able to follow commands, to answer yes/no questions, and to move all extremities. SKIN: Warm, dry, normal turgor, no rashes or lesions noted Laboratory Results - last 24 hr 03/06/17 03/06/17 06:05 06:05 WBC 12.6 H RBC 3.52 L Hgb 10.9 L Hct 32.6 L MCV 92.7 MCH 30.8 MCHC 33.3 RDW 14.0 Plt Count 448 H MPV 9.4 Neutrophils % 67.6 Lymphocytes % 15.7 Monocytes % 8.7 Eosinophils % 7.0 H Basophils % 1.0 Sodium 141 Potassium 4.2 Chloride 107 Carbon Dioxide 26 Anion Gap 8 BUN 11 Creatinine 0.9 Creat Clearance w eGFR > 60 Random Glucose 135 H D Calcium 8.0 L Total Bilirubin 0.4 AST 21 D ALT 31 Alkaline Phosphatase 84 Total Protein 6.4 Albumin 2.2 L Active Medications Generic Name Dose Route Start Last Admin Trade Name Freq PRN Reason Stop Dose Admin Acetaminophen 650 mg 02/21/17 20:01 02/27/17 09:05 Tylenol Oral Solution - PO 650 mg Q6H PRN Administration FEVER OR PAIN Acetylcysteine 600 mg 03/06/17 13:39 03/06/17 14:02 Mucomyst 20 Oral / Inh Use Only* NEB 600 mg TID JUNIOR Administration Albuterol Sulfate 1 amp 03/05/17 19:48 03/06/17 14:02 Ventolin 0.5% - NEB 1 amp Q4H PRN Administration SHORT OF BREATH/WHEEZING Allopurinol 100 mg 02/22/17 17:28 03/06/17 09:09 Zyloprim - PEG 100 mg DAILY JUNIOR Administration Amlodipine Besylate 10 mg 02/23/17 16:45 03/06/17 09:09 Norvasc - PEG 10 mg DAILY JUNIOR Administration Aspirin 81 mg 02/23/17 10:00 03/06/17 09:09 Asa - PEG 81 mg DAILY JUNIOR Administration Bacitracin 1 applic 02/26/17 11:15 03/06/17 09:11 Bacitracin - TP 1 applic BID JUNIOR Administration Chlordiazepoxide HCl 15 mg 03/05/17 10:00 03/06/17 09:09 Librium - PO 15 mg Q8H JUNIOR Administration Enalapril Maleate 10 mg 03/05/17 14:45 03/05/17 15:46 Vasotec - PO 10 mg ONCE JUNIOR Administration Folic Acid 1 mg 02/21/17 10:00 03/06/17 09:09 Folic Acid - PO 1 mg DAILY JUNIOR Administration Gabapentin 300 mg 03/05/17 11:30 03/06/17 13:55 Neurontin - PO 300 mg TID JUNIOR Administration Heparin Sodium (Porcine) 5,000 unit 02/21/17 14:00 03/06/17 13:52 Heparin - SQ 5,000 unit TID JUNIOR Administration Hydromorphone HCl 1 mg 03/01/17 06:32 03/06/17 02:44 Dilaudid Injection - IVPUSH 1 mg Q3H PRN Administration PAIN Metoprolol Tartrate 25 mg 03/03/17 13:00 03/06/17 09:10 Lopressor - PO 25 mg BID JUNIOR Administration Multivitamins/Minerals/Vitamin C 1 tab 02/21/17 10:00 03/06/17 09:08 Tab-A-Vit - PO 1 tab DAILY JUNIOR Administration Pantoprazole Sodium 40 mg 03/04/17 10:00 03/06/17 09:09 Protonix Packets For Oral Suspension - GT 40 mg DAILY JUNIOR Administration Quetiapine Fumarate 25 mg 03/05/17 11:00 03/05/17 21:02 Seroquel - PO 25 mg HS JUNIOR Administration Sertraline HCl 50 mg 03/05/17 11:00 03/06/17 09:09 Zoloft - PO 50 mg DAILY JUNIOR Administration Sodium Chloride 2 spray 02/23/17 18:40 02/23/17 21:55 [place] - NS 2 spray BID PRN Administration NASAL CONGESTION IMAGIN03/06/17 CXR -> no sign of failure or PTX. Slight increase in markings to bases noted. Tracheostomy tube present. 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 # agitation - improved - Librium taper, TID -> BID - Haloperidol and Ativan D/Michael - Neurontin added for pain management -> will continue to monitor for lethargy # acute hypoxic respiratory failure - likely 2/2 mucous plug - resolved, trach placed yesterday - continued mucomyst with albuterol nebs # Laryngeal squamous cell Ca s/p laryngectomy with left anterolateral thigh flap pharyngeal reconstruction on 02/20/17 - POD 14 - continue Dilaudid prn and Neurontin for pain - post-op care per surgery # fever - resolved - leukocytosis improved # htn - continue Norvasc and Lopressor # CAD s/p 2 stents - continue ASA # gout - continue Allopurinol # 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 Gilmore as outpatient # FEN - Fluids: encourage po + additional 40 ml/hr water with tube feeding - Electolytes: wnl, continue to monitor. - Nutrition: clear liquids + tube feeding of Pivot goal rate 62 ml/hr # Prophylaxis - DVT ppx with Heparin 5,000U SQ TID - GI ppx with Protonix daily - deconditioning ppx with bedside PT Visit type - Emergency Visit Emergency Visit: Yes ED Registration Date: 02/11/17 Care time: The patient presented to the Emergency Department on the above date and was hospitalized for further evaluation of their emergent condition. - New Patient This patient is new to me today: No - Critical Care Critical Care patient: Yes Total Critical Care Time (in minutes): 45 Critical Care Statement: The care of this patient involved high complexity decision making to prevent further life threatening deterioration of the patient 's condition and/or to evaluate & treat vital organ system(s) failure or risk of failure.
--- NOTE | 2017-03-06 16:51 | PN ---
Progress Note (short form) - Note Progress Note: Flap viable with good signal Patient tolerated CLD yesterday with no complications. Drains minimal Donor sites CDI. [place] removed from neck Recommend keeping the trach collar as loose as possible.
[2017-03-06] MEDS: ENALAPRIL MALEATE 10 MG TABLET (FP) PO SCH (17:28)
[2017-03-06] MEDS ORDERED: ALBUTEROL SO4 0.083% IH SOL 2.5 MG/3 ML VIAL.NEB. NEB ONE (21:48)
[2017-03-06] MEDS: QUEtiapine FUMARATE 25 MG TABLET (FP) PO SCH (22:08)
[2017-03-07] MEDS: GABAPENTIN 300 MG CAPSULE (FP) PO SCH ×3 (06:27→22:30)
[2017-03-07] MEDS: HEPARIN NA (PORCINE) 5,000 UNITS/ML 1ML VIAL SQ SCH ×3 (06:27→22:19)
[2017-03-07] MEDS: ACETYLCYSTEINE 20% 200MG/ML 4 ML VIAL *FOR ORAL / INH USE ONLY NEB SCH ×2 (06:45→14:25)
[2017-03-07] MEDS: ALBUTEROL SO4 0.5 % INH SOLN 2.5 MG/0.5 ML VIAL.NEB. NEB PRN (06:45)
[2017-03-07 06:47] LABS: MCH 30.6 pg (25.7-33.7); MEAN PLT VOLUME 9.9 fl (7.5-11.1); PLATELET COUNT 437 K/MM3 (134-434); RDW 14.2 % (11.9-15.9); WHITE BLOOD COUNT 11.5 K/mm3 (4.0-10.0)
[2017-03-07] MEDS ORDERED: ALBUTEROL SO4 0.083% IH SOL 2.5 MG/3 ML VIAL.NEB. NEB ONE (06:47)
--- NOTE | 2017-03-07 09:06 | PN ---
Physical Exam: SUBJECTIVE: Patient seen and examined. Pt denies pain. No events overnight. OBJECTIVE: Vital Signs Period Temp Pulse Resp BP Sys/Clay Pulse Ox Last 24 Hr 98.5 F-99 F 73-100 13-20 100-144/67-99 98-100 GENERAL: Alert, NAD. NECK: Tracheostomy tube present. Minimal erythema and edema around tracheostome. Incision C/D/I. [place] removed. 2 JPs with 10ml serosangiunous drainage from each yesterday. LUNGS: Breath sounds equal, clear to anterior auscultation bilaterally, no accessory muscle use. HEART: Regular rate and rhythm, S1, S2 without murmur, rub or gallop. ABDOMEN: Soft, nontender, nondistended, normoactive bowel sounds x4. G-tube in place, tube feeding running. Incision C/D/I. EXTREMITIES: Warm, well-perfused, no edema. Clean dressing to Right anterior thigh and clean dressing with Xeroform to Left anterior thigh. NEURO: Pt able to follow commands, to answer yes/no questions, and to move all extremities. SKIN: Warm, dry, normal turgor, no rashes or lesions noted Laboratory Results - last 24 hr 03/07/17 05:00 WBC 11.5 H RBC 3.45 L Hgb 10.6 L Hct 32.1 L MCV 93.0 MCH 30.6 MCHC 33.0 RDW 14.2 Plt Count 437 H MPV 9.9 Active Medications Generic Name Dose Route Start Last Admin Trade Name Freq PRN Reason Stop Dose Admin Acetaminophen 650 mg 02/21/17 20:01 02/27/17 09:05 Tylenol Oral Solution - PO 650 mg Q6H PRN Administration FEVER OR PAIN Acetylcysteine 600 mg 03/06/17 13:39 03/07/17 06:45 Mucomyst 20 Oral / Inh Use Only* NEB 600 mg TID JUNIOR Administration Albuterol Sulfate 1 amp 03/05/17 19:48 03/07/17 06:45 Ventolin 0.5% - NEB 1 amp Q4H PRN Administration SHORT OF BREATH/WHEEZING Allopurinol 100 mg 02/22/17 17:28 03/06/17 09:09 Zyloprim - PEG 100 mg DAILY JUNIOR Administration Amlodipine Besylate 10 mg 02/23/17 16:45 03/06/17 09:09 Norvasc - PEG 10 mg DAILY JUNIOR Administration Aspirin 81 mg 02/23/17 10:00 03/06/17 09:09 Asa - PEG 81 mg DAILY JUNIOR Administration Bacitracin 1 applic 02/26/17 11:15 03/06/17 22:04 Bacitracin - TP 1 applic BID JUNIOR Administration Chlordiazepoxide HCl 15 mg 03/06/17 22:00 03/06/17 22:06 Librium - PO 15 mg BID JUNIOR Administration Enalapril Maleate 10 mg 03/05/17 14:45 03/06/17 17:28 Vasotec - PO Not Given ONCE JUNIOR Folic Acid 1 mg 02/21/17 10:00 03/06/17 09:09 Folic Acid - PO 1 mg DAILY JUNIOR Administration Gabapentin 300 mg 03/05/17 11:30 03/07/17 06:27 Neurontin - PO 300 mg TID JUNIOR Administration Heparin Sodium (Porcine) 5,000 unit 02/21/17 14:00 03/07/17 06:27 Heparin - SQ 5,000 unit TID JUNIOR Administration Hydromorphone HCl 1 mg 03/01/17 06:32 03/06/17 02:44 Dilaudid Injection - IVPUSH 1 mg Q3H PRN Administration PAIN Metoprolol Tartrate 25 mg 03/03/17 13:00 03/06/17 22:08 Lopressor - PO 25 mg BID JUNIOR Administration Multivitamins/Minerals/Vitamin C 1 tab 02/21/17 10:00 03/06/17 09:08 Tab-A-Vit - PO 1 tab DAILY JUNIOR Administration Pantoprazole Sodium 40 mg 03/04/17 10:00 03/06/17 09:09 Protonix Packets For Oral Suspension - GT 40 mg DAILY JUNIOR Administration Quetiapine Fumarate 25 mg 03/05/17 11:00 03/06/17 22:08 Seroquel - PO 25 mg HS JUNIOR Administration Sertraline HCl 50 mg 03/05/17 11:00 03/06/17 09:09 Zoloft - PO 50 mg DAILY JUNIOR Administration Sodium Chloride 2 spray 02/23/17 18:40 02/23/17 21:55 [place] - NS 2 spray BID PRN Administration NASAL CONGESTION ASSESSMENT/PLAN: 56yo M with PMH of nicotine dependence, Right lung CA, CAD with 2 stents, htn, hld, gout, presented with worsening cough and sputum production and admitted to med-surg for lung resection, 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 # agitation - improved - continue 1:1 - Librium BID - Neurontin added for pain management -> pt alert, not lethargic # acute hypoxic respiratory failure - likely 2/2 mucous plug - resolved, trach placed yesterday - continue mucomyst with albuterol nebs # Laryngeal squamous cell Ca s/p laryngectomy with left anterolateral thigh flap pharyngeal reconstruction on 02/20/17 - POD 14 - continue Dilaudid prn and Neurontin for pain - post-op care per surgery # fever - resolved - leukocytosis improved # htn - continue Norvasc and Lopressor # CAD s/p 2 stents - continue ASA # gout - continue Allopurinol # 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 Gilmore as outpatient # FEN - Fluids: encourage po + additional 40 ml/hr water with tube feeding - Electolytes: wnl, continue to monitor. - Nutrition: clear liquids + tube feeding of Pivot goal rate 62 ml/hr # Prophylaxis - DVT ppx with Heparin 5,000U SQ TID - deconditioning ppx with bedside PT Visit type - Emergency Visit Emergency Visit: Yes ED Registration Date: 02/11/17 Care time: The patient presented to the Emergency Department on the above date and was hospitalized for further evaluation of their emergent condition. - New Patient This patient is new to me today: No - Critical Care Critical Care patient: No
[2017-03-07] MEDS ORDERED: PT OWN MED DRAWER 7, Y5N ONE ×3 (09:56→17:09)
[2017-03-07] MEDS: FOLIC ACID 1 MG TABLET (FP) PO SCH (10:05)
[2017-03-07] MEDS: ASPIRIN 81 MG CHEWABLE TABLETS PEG SCH (10:05)
[2017-03-07] MEDS: MULTIVITAMINS (DAILY MVI) TABLET (FP) PO SCH (10:05)
[2017-03-07] MEDS: ALLOPURINOL 100 MG TABLET (FP) PEG SCH (10:06)
[2017-03-07] MEDS: chlordiazePOXIDE 5 MG CAPSULE PO SCH ×2 (10:06→22:16)
[2017-03-07] MEDS: SERTRALINE HCL 50 MG TABLET (FP) PO SCH (10:06)
[2017-03-07] MEDS: PANTOPRAZOLE SOD 40 MG SUSPENSION PACKET GT SCH (10:06)
[2017-03-07] MEDS: METOPROLOL TARTRATE 25 MG TABLET (FP) PO SCH ×2 (10:07→22:30)
[2017-03-07] MEDS: amLODIPine BESYLATE 10 MG TABLET (FP) PEG SCH (10:07)
[2017-03-07] MEDS: BACITRACIN 15 GM TUBE TOPICAL OINTMENT TP SCH ×2 (10:53→23:28)
--- NOTE | 2017-03-07 11:23 | PN ---
Progress Note (short form) - Note Progress Note: PULMONARY AWAKE/ALERT WRIST RESTRAINTS VSS/AFEBRILE ANICTERIC/B/L NECK DRAINS CHEST TUBE REMOVED/CLEAR ANTERIOR BREATH SOUNDS S1S2 BS+ SOFT NO EDEMA LABS/MEDS/NOTES/IMAGES REVIEWED 1) newly diagnosed RUL adenocarcinoma - s/p vats wedge resection/right chest tube w drainage was removed - Dilaudid/Oxycodone for pain - incentive spirometry - O2 prn 2) Supraglottic lesion - s/p laryngoscopy biopsy revealing squamous cell Ca - s/p subtotal pharyngectomy 3) ETOH abuse 4) CAD s/p PCI stents 5) DVT Prophylaxis - Heparin 5,000U SQ BID - sheree Anni MARTINEZ MD
--- NOTE | 2017-03-07 11:32 | PN ---
Teaching Attending Note Name of Resident: Gloria Zaldivar ATTENDING PHYSICIAN STATEMENT I saw and evaluated the patient. I reviewed the resident's note and discussed the case with the resident. I agree with the resident's findings and plan as documented. SUBJECTIVE: no fever or chills. no events over night . pulled on his wound dressings over night . denies any pain or OSB OBJECTIVE: NAD , follows command, more awake and cooperative today CV: RRR Lungs: clear bilaterally Ext: a clean dry dressing on R anterior thigh, and clean wound on L thigh wound with xeroform Moves all his extremities to commands. equal pupils m, and reactive to light . no facial droop ASSESSMENT AND PLAN: 56 y/o gentleman with h/o Nicotine dependence, HTn, CAD s/p Stenting , hyperlipidemia and recently diagnosed R lung adenocarcinoma who presented for pulmonary resection. 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 Trach in place - cont Mucomyst Nebs with Albuterol 2- Laryngeal SCC s/p larynegectomy, with flap reconstruction: - con to monitor site - Cont Neurontin 3- Agitation/Acute delirium : improved - cont taper to avoid withdrawal. will change to 10 BID tomorrow 3- Nutrition: cont TF 4- HTN -cont norvasc and Metoprolol. 5- Acute blood loss anemia. stable HB 6- Fever: resolved . Leukocytosis improved. 7- CAD: cont ASpirin through PEG . PEg clogged , will try to fix DVT px with heparin
[2017-03-07] MEDS: HYDROmorphone HCL CARPU-JECT 2 MG/1 ML DISP.SYRIN IVPUSH PRN ×2 (15:02→22:02)
[2017-03-07] MEDS: ZINC OXIDE 20% TOPICAL OINTMENT 30 GM TUBE TP SCH ×2 (15:02→22:30)
[2017-03-07] MEDS ORDERED: LIPASE/PROTEASE/AMYLASE 6,000 UNIT CAPSULE NR ONE (16:00)
[2017-03-07] MEDS ORDERED: SODIUM BICARBONATE 8.4% 50 MEQ/50 ML VIAL NR ONE (16:00)
[2017-03-07] MEDS: ENALAPRIL MALEATE 10 MG TABLET (FP) PO SCH (17:11)
[2017-03-07] MEDS: QUEtiapine FUMARATE 25 MG TABLET (FP) PO SCH (22:30)
[2017-03-08] MEDS: HYDROmorphone HCL CARPU-JECT 2 MG/1 ML DISP.SYRIN IVPUSH PRN ×4 (03:19→23:08)
[2017-03-08] MEDS: GABAPENTIN 300 MG CAPSULE (FP) PO SCH ×4 (06:42→21:02)
[2017-03-08] MEDS: HEPARIN NA (PORCINE) 5,000 UNITS/ML 1ML VIAL SQ SCH ×3 (06:42→21:01)
[2017-03-08 07:10] LABS: MCH 30.9 pg (25.7-33.7); MCHC 33.2 g/dl (32.0-35.9); MEAN CELL VOLUME 93.1 fl (80-96); PLATELET COUNT 389 K/MM3 (134-434); RDW 14.1 % (11.9-15.9); WHITE BLOOD COUNT 9.6 K/mm3 (4.0-10.0)
--- NOTE | 2017-03-08 09:45 | PN ---
Progress Note (short form) - Note Progress Note: Dr. Jenkins covering for Dr. Lopez Called to evaluate clogged G-Tube Apparently surgical gastrostomy was placed during surgery 02/20 Per nursing it was pulled out twice in ICU and replaced On exam: Abdomen: sft, +BS, + vertical upper abdominal scar, 18fr. Rader catheter in place of G-Tube in LUQ. There was resistance to flushing. Erythema around the G- Tube site noted. No fluctuance. About 5cc of fluid was removed from the balloon. Attempt was then made to pull rader out of the stoma and replace it with an 18fr replacement gastrostomy tube. There was significant resistance when I attempted to pull the rader catheter out. I attempted to further remove fluid / air from the rader balloon (the balloon is marked as 30cc capacity) however no more could be aspirated. I did note want to put more traction on the rader catheter. It's possible that the balloon of the rader is only semi deflated causing the resistance. If feasible upper endoscopy could be performed to assess rader balloon and deflate it further is necessary. For now: Keep abdominal binder in place IV hydration Dr. Lopez resumes coverage tomorrow 03/09
[2017-03-08] MEDS ORDERED: ALBUTEROL SO4 0.083% IH SOL 2.5 MG/3 ML VIAL.NEB. NEB ONE (10:25)
[2017-03-08] MEDS: BACITRACIN 15 GM TUBE TOPICAL OINTMENT TP SCH ×2 (10:27→21:01)
[2017-03-08] MEDS: ZINC OXIDE 20% TOPICAL OINTMENT 30 GM TUBE TP SCH ×2 (10:29→21:02)
[2017-03-08] MEDS: amLODIPine BESYLATE 10 MG TABLET (FP) PEG SCH (10:31)
[2017-03-08] MEDS: FOLIC ACID 1 MG TABLET (FP) PO SCH (10:31)
[2017-03-08] MEDS: SERTRALINE HCL 50 MG TABLET (FP) PO SCH (10:31)
[2017-03-08] MEDS: ALLOPURINOL 100 MG TABLET (FP) PEG SCH (10:31)
[2017-03-08] MEDS: chlordiazePOXIDE 5 MG CAPSULE PO SCH ×2 (10:31→21:02)
[2017-03-08] MEDS: MULTIVITAMINS (DAILY MVI) TABLET (FP) PO SCH (10:31)
[2017-03-08] MEDS: METOPROLOL TARTRATE 25 MG TABLET (FP) PO SCH ×2 (10:31→21:02)
[2017-03-08] MEDS: ASPIRIN 81 MG CHEWABLE TABLETS PEG SCH (10:31)
[2017-03-08] MEDS: ACETYLCYSTEINE 20% 200MG/ML 4 ML VIAL *FOR ORAL / INH USE ONLY NEB SCH (10:56)
[2017-03-08] MEDS: ALBUTEROL SO4 0.5 % INH SOLN 2.5 MG/0.5 ML VIAL.NEB. NEB PRN (10:56)
--- NOTE | 2017-03-08 12:08 | PN ---
Progress Note (short form) - Note Progress Note: Subjective: Sweaty over night per RN. He denies any pain or SOB. limited verbal communication due to trach Objective: Vital Signs: Last Vital Signs Temp Pulse Resp BP Pulse Ox 98.2 F 80 18 142/66 99 03/08/17 09:00 03/08/17 09:00 03/08/17 09:00 03/08/17 09:00 03/08/17 09:00 Laboratory Results - last 24 hr 03/08/17 05:00 WBC 9.6 RBC 3.54 L Hgb 10.9 L Hct 32.9 L MCV 93.1 MCH 30.9 MCHC 33.2 RDW 14.1 Plt Count 389 MPV 10.0 Physical Exam: NAD, follows command, awake . CV: RRR Lungs: clear bilaterally Ext: a clean dry wounds on bilateral anterior thighs Moves all his extremities to commands. equal pupils, no facial droop seen ASSESSMENT AND PLAN: 56 y/o gentleman with h/o Nicotine dependence, HTn, CAD s/p Stenting , hyperlipidemia and recently diagnosed R lung adenocarcinoma who presented for pulmonary resection. 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 Trach in place - cont Mucomyst Nebs with Albuterol 2- Laryngeal SCC s/p larynegectomy, with flap reconstruction: - con to monitor site - Cont Neurontin for pain 3- Agitation/Acute delirium : improved - Cont 15 BID for today, as agitated and sweaty over night 3- Nutrition: Rader in place of PEG is not working. Appreciate Dr. Govea's help. rader could not be removed. Will need EGD . will folloow up 4- HTN -cont norvasc and Metoprolol. 5- Acute blood loss anemia. stable HB 6- Fever: resolved . Leukocytosis improved. 7- CAD: aspirin DVT px with heparin Visit type - Emergency Visit Emergency Visit: Yes ED Registration Date: 02/11/17 Care time: The patient presented to the Emergency Department on the above date and was hospitalized for further evaluation of their emergent condition. - New Patient This patient is new to me today: No - Critical Care Critical Care patient: No
[2017-03-08] MEDS: SODIUM CHLORIDE 1,000 ML IV SCH (13:00)
--- NOTE | 2017-03-08 13:07 | PN ---
Progress Note (short form) - Note Progress Note: PULMONARY CONFUSED WRIST RESTRAINTS 1:1 SITTER VSS/AFEBRILE ANICTERIC/B/L NECK DRAINS W DRAINAGE CHEST TUBE REMOVED/CLEAR ANTERIOR BREATH SOUNDS S1S2 BS+ SOFT NO EDEMA LABS/MEDS/NOTES/IMAGES REVIEWED 1) newly diagnosed RUL adenocarcinoma - s/p vats wedge resection/right chest tube w drainage was removed - Dilaudid/Oxycodone for pain - incentive spirometry - O2 prn 2) Supraglottic lesion - s/p laryngoscopy biopsy revealing squamous cell Ca - s/p subtotal pharyngectomy 3) ETOH abuse 4) CAD s/p PCI stents 5) DVT Prophylaxis - Heparin 5,000U SQ BID - sheree Anni MARTINEZ MD
[2017-03-08] MEDS: ENALAPRIL MALEATE 10 MG TABLET (FP) PO SCH (14:00)
[2017-03-08] MEDS ORDERED: PT OWN MED DRAWER 7, Y5N ONE (14:41)
[2017-03-08] MEDS: SODIUM CHLORIDE NASAL SPRAY 44 ML BOTTLE NS PRN (21:02)
[2017-03-08] MEDS: QUEtiapine FUMARATE 25 MG TABLET (FP) PO SCH (21:03)
[2017-03-09] MEDS: HYDROmorphone HCL CARPU-JECT 2 MG/1 ML DISP.SYRIN IVPUSH PRN ×2 (03:31→06:06)
[2017-03-09] MEDS: GABAPENTIN 300 MG CAPSULE (FP) PO SCH ×3 (05:45→21:10)
[2017-03-09] MEDS: HEPARIN NA (PORCINE) 5,000 UNITS/ML 1ML VIAL SQ SCH ×3 (05:45→21:10)
[2017-03-09 07:27] LABS: ANION GAP 8 (8-16); CALCIUM 8.2 mg/dL (8.5-10.1); CO2 25 mmol/L (21-32); CREATININE 0.9 mg/dL (0.7-1.3); GLUCOSE,RANDOM 94 mg/dL (74-106)
[2017-03-09 07:47] LABS: BASO % 1.1 % (0-2.0); EOS % 9.1 % (0-4.5); MCH 30.8 pg (25.7-33.7); MCHC 33.1 g/dl (32.0-35.9); MEAN CELL VOLUME 93.2 fl (80-96); MEAN PLT VOLUME 9.8 fl (7.5-11.1); NEUT % 58.4 % (42.8-82.8); PLATELET COUNT 363 K/MM3 (134-434); RDW 13.7 % (11.9-15.9); WHITE BLOOD COUNT 11.1 K/mm3 (4.0-10.0)
[2017-03-09] MEDS: chlordiazePOXIDE 5 MG CAPSULE PO SCH ×2 (09:16→21:10)
[2017-03-09] MEDS: amLODIPine BESYLATE 10 MG TABLET (FP) PEG SCH (09:18)
[2017-03-09] MEDS: FOLIC ACID 1 MG TABLET (FP) PO SCH (09:19)
[2017-03-09] MEDS: ASPIRIN 81 MG CHEWABLE TABLETS PEG SCH (09:19)
[2017-03-09] MEDS: ALLOPURINOL 100 MG TABLET (FP) PEG SCH (09:19)
[2017-03-09] MEDS: BACITRACIN 15 GM TUBE TOPICAL OINTMENT TP SCH ×2 (09:19→21:10)
[2017-03-09] MEDS: MULTIVITAMINS (DAILY MVI) TABLET (FP) PO SCH (09:19)
[2017-03-09] MEDS: SERTRALINE HCL 50 MG TABLET (FP) PO SCH (09:19)
[2017-03-09] MEDS: METOPROLOL TARTRATE 25 MG TABLET (FP) PO SCH ×2 (09:19→21:09)
--- NOTE | 2017-03-09 10:19 | PN ---
Progress Note, Physician History of Present Illness: Blocked PEG. Could not be replaced at bedside. - Current Medication List Current Medications: Active Medications Acetaminophen (Tylenol Oral Solution -) 650 mg PO Q6H PRN PRN Reason: FEVER OR PAIN Last Admin: 02/27/17 09:05 Dose: 650 mg Acetylcysteine (Mucomyst 20 Oral / Inh Use Only*) 600 mg NEB DAILY [facility] Last Admin: 03/08/17 10:56 Dose: 600 mg Albuterol Sulfate (Ventolin 0.083% Nebulizer Soln -) 1 amp NEB Q6H PRN PRN Reason: WHEEZING Allopurinol (Zyloprim -) 100 mg PEG DAILY [facility] Last Admin: 03/09/17 09:19 Dose: 100 mg Amlodipine Besylate (Norvasc -) 10 mg PEG DAILY [facility] Last Admin: 03/09/17 09:18 Dose: 10 mg Aspirin (Asa -) 81 mg PEG DAILY [facility] Last Admin: 03/09/17 09:19 Dose: 81 mg Bacitracin (Bacitracin -) 1 applic TP BID [facility] Last Admin: 03/09/17 09:19 Dose: 1 applic Chlordiazepoxide HCl (Librium -) 15 mg PO BID [facility] Last Admin: 03/09/17 09:16 Dose: 15 mg Folic Acid (Folic Acid -) 1 mg PO DAILY [facility] Last Admin: 03/09/17 09:19 Dose: 1 mg Gabapentin (Neurontin -) 300 mg PO TID [facility] Last Admin: 03/09/17 05:45 Dose: 300 mg Heparin Sodium (Porcine) (Heparin -) 5,000 unit SQ TID [facility] Last Admin: 03/09/17 05:45 Dose: 5,000 unit Hydromorphone HCl (Dilaudid Injection -) 1 mg IVPUSH Q3H PRN PRN Reason: PAIN Last Admin: 03/09/17 06:06 Dose: 1 mg Sodium Chloride (Normal Saline -) 1,000 mls @ 75 mls/hr IV ASDIR [facility] Last Admin: 03/08/17 13:00 Dose: 75 mls/hr Metoprolol Tartrate (Lopressor -) 25 mg PO BID [facility] Last Admin: 03/09/17 09:19 Dose: 25 mg Multi-Ingredient Ointment (Zinc Oxide) 1 applic TP BID [facility] Last Admin: 03/08/17 21:02 Dose: 1 applic Multivitamins/Minerals/Vitamin C (Tab-A-Vit -) 1 tab PO DAILY [facility] Last Admin: 03/09/17 09:19 Dose: 1 tab Quetiapine Fumarate (Seroquel -) 25 mg PO HS [facility] Last Admin: 03/08/17 21:03 Dose: 25 mg Sertraline HCl (Zoloft -) 50 mg PO DAILY [facility] Last Admin: 03/09/17 09:19 Dose: 50 mg Sodium Chloride ([place] -) 2 spray NS BID PRN PRN Reason: NASAL CONGESTION Last Admin: 03/08/17 21:02 Dose: 2 spray - Objective Vital Signs: Vital Signs Temperature 98.1 F 03/09/17 05:28 Pulse Rate 66 03/09/17 07:11 Respiratory Rate 16 03/09/17 05:28 Blood Pressure 142/78 03/09/17 05:28 O2 Sat by Pulse Oximetry (%) 98 03/09/17 07:11 Constitutional: Yes: No Distress, Calm Gastrointestinal: Yes: Normal Bowel Sounds, Soft. No: Tenderness Labs: CBC, BMP 03/09/17 05:10 03/09/17 05:10 INR, PTT INR 0.98 (0.82-1.09) 02/16/17 05:35 Laboratory Results - last 24 hr 03/09/17 03/09/17 05:10 05:10 WBC 11.1 H RBC 3.37 L Hgb 10.4 L Hct 31.4 L MCV 93.2 MCH 30.8 MCHC 33.1 RDW 13.7 Plt Count 363 MPV 9.8 Neutrophils % 58.4 Lymphocytes % 23.3 D Monocytes % 8.1 Eosinophils % 9.1 H Basophils % 1.1 Sodium 140 Potassium 4.2 Chloride 107 Carbon Dioxide 25 Anion Gap 8 BUN 9 Creatinine 0.9 Random Glucose 94 D Calcium 8.2 L Problem List - Problems (1) Gastrostomy complication, unspecified Code(s): K94.20 - GASTROSTOMY COMPLICATION, UNSPECIFIED Assessment/Plan s/p recent laryngopharyngectomy with reconstruction, VATS. FT was placed by surgery. FT not amendable to endoscopic evaluation and replacement. Please reconsult surgery, or consult IR.
[2017-03-09] MEDS: ZINC OXIDE 20% TOPICAL OINTMENT 30 GM TUBE TP SCH ×2 (10:42→21:22)
[2017-03-09] MEDS: ALBUTEROL SO4 0.083% IH SOL 2.5 MG/3 ML VIAL.NEB. NEB PRN (10:45)
[2017-03-09] MEDS: ACETYLCYSTEINE 20% 200MG/ML 4 ML VIAL *FOR ORAL / INH USE ONLY NEB SCH (10:45)
--- NOTE | 2017-03-09 11:36 | PN ---
Progress Note, Physician History of Present Illness: PULMONARY ALERT,NO DISTRESS,OOB-CHAIR - Current Medication List Current Medications: Active Medications Acetaminophen (Tylenol Oral Solution -) 650 mg PO Q6H PRN PRN Reason: FEVER OR PAIN Last Admin: 02/27/17 09:05 Dose: 650 mg Acetylcysteine (Mucomyst 20 Oral / Inh Use Only*) 600 mg NEB DAILY [facility] Last Admin: 03/08/17 10:56 Dose: 600 mg Albuterol Sulfate (Ventolin 0.083% Nebulizer Soln -) 1 amp NEB Q6H PRN PRN Reason: WHEEZING Allopurinol (Zyloprim -) 100 mg PEG DAILY [facility] Last Admin: 03/09/17 09:19 Dose: 100 mg Amlodipine Besylate (Norvasc -) 10 mg PEG DAILY [facility] Last Admin: 03/09/17 09:18 Dose: 10 mg Aspirin (Asa -) 81 mg PEG DAILY [facility] Last Admin: 03/09/17 09:19 Dose: 81 mg Bacitracin (Bacitracin -) 1 applic TP BID [facility] Last Admin: 03/09/17 09:19 Dose: 1 applic Chlordiazepoxide HCl (Librium -) 15 mg PO BID [facility] Last Admin: 03/09/17 09:16 Dose: 15 mg Folic Acid (Folic Acid -) 1 mg PO DAILY [facility] Last Admin: 03/09/17 09:19 Dose: 1 mg Gabapentin (Neurontin -) 300 mg PO TID [facility] Last Admin: 03/09/17 05:45 Dose: 300 mg Heparin Sodium (Porcine) (Heparin -) 5,000 unit SQ TID [facility] Last Admin: 03/09/17 05:45 Dose: 5,000 unit Hydromorphone HCl (Dilaudid Injection -) 1 mg IVPUSH Q3H PRN PRN Reason: PAIN Last Admin: 03/09/17 06:06 Dose: 1 mg Sodium Chloride (Normal Saline -) 1,000 mls @ 75 mls/hr IV ASDIR [facility] Last Admin: 03/08/17 13:00 Dose: 75 mls/hr Metoprolol Tartrate (Lopressor -) 25 mg PO BID [facility] Last Admin: 03/09/17 09:19 Dose: 25 mg Multi-Ingredient Ointment (Zinc Oxide) 1 applic TP BID [facility] Last Admin: 03/08/17 21:02 Dose: 1 applic Multivitamins/Minerals/Vitamin C (Tab-A-Vit -) 1 tab PO DAILY [facility] Last Admin: 03/09/17 09:19 Dose: 1 tab Quetiapine Fumarate (Seroquel -) 25 mg PO HS [facility] Last Admin: 03/08/17 21:03 Dose: 25 mg Sertraline HCl (Zoloft -) 50 mg PO DAILY [facility] Last Admin: 03/09/17 09:19 Dose: 50 mg Sodium Chloride ([place] -) 2 spray NS BID PRN PRN Reason: NASAL CONGESTION Last Admin: 03/08/17 21:02 Dose: 2 spray - Objective Vital Signs: Vital Signs Temperature 98.1 F 03/09/17 05:28 Pulse Rate 66 03/09/17 07:11 Respiratory Rate 16 03/09/17 05:28 Blood Pressure 142/78 03/09/17 05:28 O2 Sat by Pulse Oximetry (%) 98 03/09/17 07:11 Constitutional: Yes: Well Nourished, Calm Eyes: Yes: WNL HENT: Yes: WNL Neck: Yes: Supple Cardiovascular: Yes: Regular Rate and Rhythm, S1, S2 Respiratory: Yes: CTA Bilaterally Gastrointestinal: Yes: Normal Bowel Sounds, Soft Extremities: Yes: WNL Edema: No Labs: CBC, BMP 03/09/17 05:10 03/09/17 05:10 INR, PTT INR 0.98 (0.82-1.09) 02/16/17 05:35 Problem List - Problems (1) Alcohol dependence Code(s): F10.20 - ALCOHOL DEPENDENCE, UNCOMPLICATED Qualifiers: Substance use status: with intoxication Complication of substance-induced condition: with unspecified complication Qualified Code(s): F10.229 - Alcohol dependence with intoxication, unspecified (2) Alcohol intoxication Code(s): F10.929 - ALCOHOL USE, UNSPECIFIED WITH INTOXICATION, UNSPECIFIED Qualifiers: Complication of substance-induced condition: with unspecified complication Qualified Code(s): F10.929 - Alcohol use, unspecified with intoxication, unspecified (3) Cough Code(s): R05 - COUGH (5) Lung cancer Code(s): C34.90 - MALIGNANT NEOPLASM OF UNSP PART OF UNSP BRONCHUS OR LUNG Qualifiers: Laterality: unspecified laterality Lung location: overlapping sites Qualified Code(s): C34.80 - Malignant neoplasm of overlapping sites of unspecified bronchus and lung (6) Metastatic disease Code(s): C79.9 - SECONDARY MALIGNANT NEOPLASM OF UNSPECIFIED SITE (7) Nicotine dependence Code(s): F17.200 - NICOTINE DEPENDENCE, UNSPECIFIED, UNCOMPLICATED (8) Laryngeal squamous cell carcinoma Code(s): C32.9 - MALIGNANT NEOPLASM OF LARYNX, UNSPECIFIED Assessment/Plan ASSESSMENT AND PLAN: NSCLC - Adenocarcinoma s/p R VATS/Wedge Resection/CT placement now removed 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
--- NOTE | 2017-03-09 13:25 | PN ---
Teaching Attending Note Name of Resident: Gloria Zaldivar ATTENDING PHYSICIAN STATEMENT I saw and evaluated the patient. I reviewed the resident's note and discussed the case with the resident. I agree with the resident's findings and plan as documented. SUBJECTIVE: Denies any pain or SOB. wants to smoke . OBJECTIVE: NAD, follows command, awake. neck with clean wounds. slight edema on L ( over parotid ) : improved. drainage tubes in place. trach colar in place CV: RRR Lungs: clear bilaterally Ext: a clean dry wounds on bilateral anterior thighs Moves all his extremities to commands. equal pupils, no facial droop seen ASSESSMENT AND PLAN: 56 y/o gentleman with h/o Nicotine dependence, HTN, CAD s/p Stenting , hyperlipidemia and recently diagnosed R lung adenocarcinoma who presented for pulmonary resection. 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 Trach in place - cont Mucomyst Nebs with Albuterol 2- Laryngeal SCC s/p larynegectomy, with flap reconstruction: - con to monitor site - Cont Neurontin for pain 3- Agitation/Acute delirium : improved - decrease librium to 10 BID 3- Nutrition: dysfunctional FT D/W Dr. Lopez, will need IR or Surgery eval. WIll contact IR 4- HTN -cont norvasc and Metoprolol. 5- Acute blood loss anemia. stable HB 6- Fever: resolved . Leukocytosis improved. 7- CAD: aspirin 8- Nicotin dependence . still craving . Start nicotine patch DVT px with heparin DC tele . tx to [facility] [address] Cont 1:1 for patient safety
--- NOTE | 2017-03-09 14:54 | PN ---
Progress Note (short form) - Note Progress Note: Pt alert and responding to verbal stimuli. As per nursing staff his GT became clogged this weekend. He has been tolerating liquids. Vital Signs Period Temp Pulse Resp BP Sys/Clay Pulse Ox Last 24 Hr 97.5 F-99.2 F 66-81 16-20 109-142/63-78 98-99 ANNA-left 9ml serous, right 3 ml serous Neck: incision line c/d/i, trach site with secretions today and incision around trach on the superior aspect moist. Left neck with mass/non-fluctuant without erythema inferior to the ear underneath the mandible. Otherwise swelling improved overall. ABD: soft, non-distended, non-tender. midline inc c/d/i. GT-inplace, suture no linger intact, unable to pull tube out. Left thigh: good graft uptake with minimal slough along the superior edge Right thigh: xeroform off, graft donor site pink and healed LE: no calf swelling noted b/l CBC, BMP 03/09/17 05:10 03/09/17 05:10 A/P: POD#17 s/p laryngectomy with left anterolateral thigh flap pharyngeal recnstruction, STSG from right thigh to left thigh GT malfunctioning, left in place. He is tolerating and receiving clears. D/w Dr. Angel and will advancement of the diet to soft. Maintain ANNA's to bulb suction. OOB with PT today and progress to ambulation Frequent trach suctioning and maintain dry dressing around trach site
[2017-03-09] MEDS ORDERED: MINERAL OIL/PETROLAT/WATER TOPICAL CREAM 454 GM JAR TP PRN (15:03)
--- NOTE | 2017-03-09 15:21 | PN ---
Physical Exam: SUBJECTIVE: Patient seen and examined. No fever, chills. Pt denies pain and sob. Pt asked to smoke a cigarette. No events overnight. OBJECTIVE: Vital Signs Period Temp Pulse Resp BP Sys/Clay Pulse Ox Last 24 Hr 97.5 F-99.2 F 66-81 16-20 109-142/63-78 98-99 GENERAL: Alert, NAD, OOB to chair. NECK: Minimal erythema and edema around tracheostome. Slight edema over Left parotid, soft to palpation. Incision C/D/I. 2 JPs present. LUNGS: Breath sounds equal, clear to anterior auscultation bilaterally, no accessory muscle use. HEART: Regular rate and rhythm, S1, S2 without murmur, rub or gallop. ABDOMEN: Soft, nontender, nondistended. Incision C/D/I. EXTREMITIES: Warm, well-perfused, no edema. Clean dressing with Xeroform to Left anterior thigh. NEURO: Pt able to follow commands and to move all extremities. SKIN: Warm, dry, normal turgor, no rashes or lesions noted Laboratory Results - last 24 hr 03/09/17 03/09/17 05:10 05:10 WBC 11.1 H RBC 3.37 L Hgb 10.4 L Hct 31.4 L MCV 93.2 MCH 30.8 MCHC 33.1 RDW 13.7 Plt Count 363 MPV 9.8 Neutrophils % 58.4 Lymphocytes % 23.3 D Monocytes % 8.1 Eosinophils % 9.1 H Basophils % 1.1 Sodium 140 Potassium 4.2 Chloride 107 Carbon Dioxide 25 Anion Gap 8 BUN 9 Creatinine 0.9 Random Glucose 94 D Calcium 8.2 L Active Medications Generic Name Dose Route Start Last Admin Trade Name Freq PRN Reason Stop Dose Admin Acetaminophen 650 mg 02/21/17 20:01 02/27/17 09:05 Tylenol Oral Solution - PO 650 mg Q6H PRN Administration FEVER OR PAIN Acetylcysteine 600 mg 03/07/17 14:00 03/09/17 10:45 Mucomyst 20 Oral / Inh Use Only* NEB 600 mg DAILY [facility] Administration Albuterol Sulfate 1 amp 03/08/17 14:34 03/09/17 10:45 Ventolin 0.083% Nebulizer Soln - NEB 1 amp Q6H PRN Administration WHEEZING Allopurinol 100 mg 02/22/17 17:28 03/09/17 09:19 Zyloprim - PEG 100 mg DAILY [facility] Administration Amlodipine Besylate 10 mg 02/23/17 16:45 03/09/17 09:18 Norvasc - PEG 10 mg DAILY [facility] Administration Aspirin 81 mg 02/23/17 10:00 03/09/17 09:19 Asa - PEG 81 mg DAILY [facility] Administration Bacitracin 1 applic 02/26/17 11:15 03/09/17 09:19 Bacitracin - TP 1 applic BID [facility] Administration Chlordiazepoxide HCl 10 mg 03/09/17 13:56 Librium - PO BID [facility] Folic Acid 1 mg 02/21/17 10:00 03/09/17 09:19 Folic Acid - PO 1 mg DAILY [facility] Administration Gabapentin 300 mg 03/05/17 11:30 03/09/17 14:24 Neurontin - PO 300 mg TID [facility] Administration Heparin Sodium (Porcine) 5,000 unit 02/21/17 14:00 03/09/17 14:24 Heparin - SQ 5,000 unit TID [facility] Administration Hydromorphone HCl 1 mg 03/01/17 06:32 03/09/17 06:06 Dilaudid Injection - IVPUSH 1 mg Q3H PRN Administration PAIN Sodium Chloride 1,000 mls @ 75 mls/hr 03/08/17 12:15 03/08/17 13:00 Normal Saline - IV 75 mls/hr ASDIR [facility] Administration Metoprolol Tartrate 25 mg 03/03/17 13:00 03/09/17 09:19 Lopressor - PO 25 mg BID [facility] Administration Multi-Ingredient Lotion 1 applic 03/09/17 15:03 Eucerin (Large Jar) - TP DAILY PRN DRY SKIN Multi-Ingredient Ointment 1 applic 03/07/17 22:00 03/08/17 21:02 Zinc Oxide TP 1 applic BID [facility] Administration Multivitamins/Minerals/Vitamin C 1 tab 02/21/17 10:00 03/09/17 09:19 Tab-A-Vit - PO 1 tab DAILY [facility] Administration Nicotine 14 mg 03/09/17 13:45 Nicoderm Patch - TD DAILY [facility] Quetiapine Fumarate 25 mg 03/05/17 11:00 03/08/17 21:03 Seroquel - PO 25 mg HS [facility] Administration Sertraline HCl 50 mg 03/05/17 11:00 11/20/17 09:19 Zoloft - PO 50 mg DAILY [facility] Administration Sodium Chloride 2 spray 02/23/17 18:40 03/08/17 21:02 [place] Nasal [place] - NS 2 spray BID PRN Administration NASAL CONGESTION ASSESSMENT/PLAN: 56yo M with PMH of nicotine dependence, Right lung CA, CAD with 2 stents, htn, hld, gout, presented with worsening cough and sputum production and admitted to med-surg for lung resection, 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 # acute hypoxic respiratory failure - likely 2/2 mucous plug - resolved, trach in place - continue mucomyst with albuterol nebs # Laryngeal squamous cell Ca s/p laryngectomy with left anterolateral thigh flap pharyngeal reconstruction on 02/20/17 - POD 17 - continue Dilaudid prn and Neurontin for pain - post-op care per surgery - incentive spirometry - O2 prn - telemetry monitoring D/Michael # agitation - improved - continue 1:1 - Librium taper -> decrease to 10mg BID # htn - continue Norvasc and Lopressor # CAD s/p 2 stents - continue ASA # gout - continue Allopurinol # 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 Gilmore as outpatient # nicotine dependence - pt asked for a cigarette today - nicotine patch initiated # FEN - Fluids: encourage po - Electolytes: wnl, continue to monitor. - Nutrition: soft # Prophylaxis - DVT ppx with Heparin 5,000U SQ TID - deconditioning ppx with PT Visit type - Emergency Visit Emergency Visit: Yes ED Registration Date: 02/11/17 Care time: The patient presented to the Emergency Department on the above date and was hospitalized for further evaluation of their emergent condition. - New Patient This patient is new to me today: No - Critical Care Critical Care patient: No
[2017-03-09] MEDS: NICOTINE 14 MG/24 HOURS TOPICAL PATCH TD SCH (15:42)
[2017-03-09] MEDS: SODIUM CHLORIDE 1,000 ML IV SCH (15:43)
--- NOTE | 2017-03-09 21:00 | PN ---
Progress Note (short form) - Note Progress Note: Patient seen and examined. Awake and alert and engaged in some dialogue with me , in no distress. Tolerated soft foods PO today. Exam: neck wounds CDI, tracheostome intact. Drains serous, right sided drain removed. Abdomen nondistended. G-tube removed and replaced with 20 [place] rader, balloon fully inflated, G-tube irrigated and particulate matter seen when suctioned. Labs unremarkable. Continues to gradually improve. Pathology report is somewhat ominous with bilateral neck node involvement (stage IVb). Generally would recommend postoperative chemotherapy and radiation, but his social and psychological status may preclude that. I would suggest consulting radiation and medical oncology when he is out of restraints and able to converse with them. Needs PT and to be out of bed as much as possible. Would appreciate termite control servicer advice from detox team regarding alcohol and tobacco addictions and options for addressing those. Please obtain contrast study of the g-tube tomorrow. If he is not able to take all calories and pills by mouth it can then be utilized.
[2017-03-09] MEDS: QUEtiapine FUMARATE 25 MG TABLET (FP) PO SCH (21:09)
[2017-03-09] MEDS ORDERED: PT OWN MED DRAWER 7, Y5N ONE (21:20)
[2017-03-09] MEDS ORDERED: ACETAMINOPHEN 650 MG/20.3 ML ORAL SOLUTION (CUPS) PO PRN (23:11)
[2017-03-09] MEDS ORDERED: ACETYLCYSTEINE 20% 200MG/ML 4 ML VIAL *FOR ORAL / INH USE ONLY NEB ONE (23:11)
[2017-03-10] MEDS: HYDROmorphone HCL CARPU-JECT 2 MG/1 ML DISP.SYRIN IVPUSH PRN ×2 (00:40→04:05)
[2017-03-10] MEDS: SODIUM CHLORIDE 1,000 ML IV SCH ×2 (00:40→13:30)
[2017-03-10] MEDS: ALBUTEROL SO4 0.083% IH SOL 2.5 MG/3 ML VIAL.NEB. NEB PRN ×3 (06:35→21:50)
[2017-03-10] MEDS: ACETYLCYSTEINE 20% 200MG/ML 4 ML VIAL *FOR ORAL / INH USE ONLY NEB SCH ×4 (06:35→21:50)
[2017-03-10] MEDS: GABAPENTIN 300 MG CAPSULE (FP) PO SCH ×3 (06:40→22:34)
[2017-03-10] MEDS: HEPARIN NA (PORCINE) 5,000 UNITS/ML 1ML VIAL SQ SCH ×3 (06:40→22:32)
[2017-03-10 07:42] LABS: MCHC 33.4 g/dl (32.0-35.9); MEAN CELL VOLUME 92.8 fl (80-96); MEAN PLT VOLUME 9.4 fl (7.5-11.1); PLATELET COUNT 336 K/MM3 (134-434); WHITE BLOOD COUNT 10.5 K/mm3 (4.0-10.0)
[2017-03-10 08:14] LABS: ALBUMIN 2.7 g/dl (3.4-5.0); ALK PHOS 96 U/L (45-117); ANION GAP 7 (8-16); BILIRUBIN,TOTAL 0.5 mg/dL (0.2-1.0); CO2 27 mmol/L (21-32); CREATININE 0.9 mg/dL (0.7-1.3); GLUCOSE,RANDOM 95 mg/dL (74-106); MAGNESIUM 1.9 mg/dL (1.8-2.4); PHOSPHOROUS 3.6 mg/dL (2.5-4.9); SGOT/AST 23 U/L (15-37); SGPT/ALT 29 U/L (12-78)
[2017-03-10] MEDS ORDERED: HYDROmorphone HCL CARPU-JECT 2 MG/1 ML DISP.SYRIN IVPB PRN (08:22)
--- NOTE | 2017-03-10 08:32 | PN ---
Physical Exam: SUBJECTIVE: Patient seen and examined. No fever, chills. Pt tolerating soft diet. Pt requesting to smoke a cigarette, nicoderm patch added yesterday. No events overnight. OBJECTIVE: Vital Signs Period Temp Pulse Resp BP Sys/Clay Pulse Ox Last 24 Hr 97.7 F-99.4 F 70-83 18-20 117-141/65-83 99-99 GENERAL: Alert, NAD, OOB to chair. NECK: Minimal erythema and edema around tracheostome. Slight edema over sheree parotid glands, symmetrical and soft to palpation. Incision C/D/I. Right ANNA drain removed. Left ANNA present draining serosanguinous fluid. LUNGS: Breath sounds equal, clear to anterior auscultation bilaterally, no accessory muscle use. HEART: Regular rate and rhythm, S1, S2 without murmur, rub or gallop. ABDOMEN: Soft, nontender, nondistended, (+) bowel sounds x 4. Incision C/D/I. G-tube replaced last night by Dr. Bledsoe, intact. EXTREMITIES: Warm, well-perfused, no edema. Clean dressing to Left anterior thigh. NEURO: Pt able to follow commands and to move all extremities. SKIN: Warm, dry, normal turgor, no rashes or lesions noted Laboratory Results - last 24 hr 03/10/17 03/10/17 06:50 06:50 WBC 10.5 H RBC 3.44 L Hgb 10.7 L Hct 31.9 L MCV 92.8 MCH 31.0 MCHC 33.4 RDW 14.0 Plt Count 336 MPV 9.4 Sodium 141 Potassium 4.1 Chloride 107 Carbon Dioxide 27 Anion Gap 7 L BUN 7 D Creatinine 0.9 Creat Clearance w eGFR > 60 Random Glucose 95 Calcium 9.0 Phosphorus 3.6 Magnesium 1.9 Total Bilirubin 0.5 D AST 23 ALT 29 Alkaline Phosphatase 96 Total Protein 7.0 Albumin 2.7 L D Active Medications Generic Name Dose Route Start Last Admin Trade Name Freq PRN Reason Stop Dose Admin Acetaminophen 650 mg 03/09/17 23:11 Tylenol Oral Solution - PO Q6H PRN FEVER OR PAIN Acetylcysteine 600 mg 03/07/17 14:00 03/09/17 10:45 Mucomyst 20 Oral / Inh Use Only* NEB 600 mg DAILY [facility] Administration Acetylcysteine 600 mg 03/10/17 06:00 03/10/17 06:35 Mucomyst 20 Oral / Inh Use Only* NEB 600 mg TIDR [facility] Administration Albuterol Sulfate 1 amp 03/08/17 14:34 03/10/17 06:35 Ventolin 0.083% Nebulizer Soln - NEB 1 amp Q6H PRN Administration WHEEZING Allopurinol 100 mg 03/10/17 10:00 Zyloprim - PEG DAILY [facility] Amlodipine Besylate 10 mg 03/10/17 10:00 Norvasc - PEG DAILY [facility] Aspirin 81 mg 03/10/17 10:00 Asa - PEG DAILY [facility] Bacitracin 1 applic 03/10/17 10:00 Bacitracin - TP BID [facility] Chlordiazepoxide HCl 10 mg 03/09/17 13:56 03/09/17 21:10 Librium - PO 10 mg BID [facility] Administration Folic Acid 1 mg 03/10/17 10:00 Folic Acid - PO DAILY [facility] Gabapentin 300 mg 03/10/17 06:00 03/10/17 06:40 Neurontin - PO 300 mg TID [facility] Administration Heparin Sodium (Porcine) 5,000 unit 03/10/17 06:00 03/10/17 06:40 Heparin - SQ 5,000 unit TID [facility] Administration Hydromorphone HCl 1 mg 03/09/17 23:11 03/10/17 04:05 Dilaudid Injection - IVPUSH 1 mg Q3H PRN Administration PAIN Sodium Chloride 1,000 mls @ 75 mls/hr 03/08/17 12:15 03/10/17 00:40 Normal Saline - IV 75 mls/hr ASDIR [facility] Administration Metoprolol Tartrate 25 mg 03/10/17 10:00 Lopressor - PO BID [facility] Multi-Ingredient Lotion 1 applic 03/09/17 15:03 Eucerin (Large Jar) - TP DAILY PRN DRY SKIN Multi-Ingredient Ointment 1 applic 03/07/17 22:00 03/09/17 21:22 Zinc Oxide TP Not Given BID [facility] Multivitamins/Minerals/Vitamin C 1 tab 03/10/17 10:00 Tab-A-Vit - PO DAILY [facility] Nicotine 14 mg 03/09/17 13:45 03/09/17 15:42 Nicoderm Patch - TD 14 mg DAILY [facility] Administration Quetiapine Fumarate 25 mg 03/10/17 22:00 Seroquel - PO HS [facility] Sertraline HCl 50 mg 03/10/17 10:00 Zoloft - PO DAILY [facility] Sodium Chloride 2 spray 03/09/17 23:11 [place] Nasal [place] - NS BID PRN NASAL CONGESTION ASSESSMENT/PLAN: 56yo M with PMH of nicotine dependence, Right lung CA, CAD with 2 stents, htn, hld, gout, presented with worsening cough and sputum production and admitted to med-surg for lung resection, 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 # acute hypoxic respiratory failure - likely 2/2 mucous plug - resolved, trach in place - continue mucomyst with albuterol nebs # Laryngeal squamous cell Ca s/p laryngectomy with left anterolateral thigh flap pharyngeal reconstruction on 02/20/17 - POD 18 - Dilaudid prn switched to Oxycodone 10mg q6hr prn as pt - continue Neurontin TID - post-op care per surgery - incentive spirometry - O2 prn - Pathology Reports reveals sheree neck node involvement - Rad-Onc Consult ordered # agitation - improved - continue 1:1 and restraints - Librium taper - Pt's mother contacted and will discuss with pt's sister arranging a visit. # fever - resolved - leukocytosis trending down - urine culture (-) # htn - continue Norvasc and Lopressor # CAD s/p 2 stents - continue ASA # gout - continue Allopurinol # 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 Gilmore as outpatient # nicotine dependence - pt asked for a cigarette today - nicotine patch D/Michael as may be vaso-constrictive # clogged G-tube - replaced last night by Dr. Bledsoe - HERB -> G-tube in place - G-tube can be used to tube feeding if necessary - f/u Dietitian Consult / Calorie Count # FEN - Fluids: encourage po - Electolytes: wnl, continue to monitor. - Nutrition: soft # Prophylaxis - DVT ppx with Heparin 5,000U SQ TID - deconditioning ppx with PT - pt walked 5 ft during PT twice today Visit type - Emergency Visit Emergency Visit: Yes ED Registration Date: 02/11/17 Care time: The patient presented to the Emergency Department on the above date and was hospitalized for further evaluation of their emergent condition. - New Patient This patient is new to me today: No - Critical Care Critical Care patient: No
[2017-03-10] MEDS ORDERED: PT OWN MED DRAWER 7, Y5N ONE ×3 (09:37→21:01)
[2017-03-10] MEDS: METOPROLOL TARTRATE 25 MG TABLET (FP) PO SCH ×2 (09:41→22:34)
[2017-03-10] MEDS: chlordiazePOXIDE 5 MG CAPSULE PO SCH ×2 (09:41→22:33)
[2017-03-10] MEDS: NICOTINE 14 MG/24 HOURS TOPICAL PATCH TD SCH (09:42)
[2017-03-10] MEDS: MULTIVITAMINS (DAILY MVI) TABLET (FP) PO SCH (09:42)
[2017-03-10] MEDS: SERTRALINE HCL 50 MG TABLET (FP) PO SCH (09:42)
[2017-03-10] MEDS: FOLIC ACID 1 MG TABLET (FP) PO SCH (09:42)
[2017-03-10] MEDS: BACITRACIN 15 GM TUBE TOPICAL OINTMENT TP SCH ×2 (09:43→22:32)
[2017-03-10] MEDS ORDERED: amLODIPine BESYLATE 10 MG TABLET (FP) PEG SCH (10:00)
[2017-03-10] MEDS ORDERED: ASPIRIN 81 MG CHEWABLE TABLETS PEG SCH (10:00)
[2017-03-10] MEDS ORDERED: ALLOPURINOL 100 MG TABLET (FP) PEG SCH (10:00)
[2017-03-10] MEDS ORDERED: MINERAL OIL/PETROLAT/WATER TOPICAL CREAM 113 GM JAR TP SCH (10:00)
--- NOTE | 2017-03-10 11:21 | PN ---
Progress Note (short form) - Note Progress Note: Pt tolerating soft diet. Seen by PT today and is very restless, he was oob and stood with PT for several minutes. Vital Signs Period Temp Pulse Resp BP Sys/Clay Pulse Ox Last 24 Hr 97.7 F-99.4 F 70-83 20-20 117-141/69-83 99-99 ANNA-8ml serous drainage Neck incision: c/d/i, trach in place with trach collar. ABD: soft, non-distended, non-tender. GT clamped. CBC, BMP 03/10/17 06:50 03/10/17 06:50 KUB- 03/10-GT in place A/P: 56 yo male POD#18 s/p laryngectomy with left anterolateral thigh flap pharyngeal recnstruction, STSG from right thigh to left thigh GT in place, may use if needed PT later today again to help mobilize the patient Speech and swallow evaluation Dietitian consult for calorie count
[2017-03-10] MEDS ORDERED: oxyCODONE HCL 5 MG TABLET PO ONE (11:25)
[2017-03-10] MEDS ORDERED: ACETAMINOPHEN 325 MG TABLET (FP) PO ONE (11:25)
--- NOTE | 2017-03-10 11:30 | PN ---
Progress Note (short form) - Note Progress Note: Awake and alert. Congested cough. No acute events overnight. Intake & Output 03/07/17 03/08/17 03/09/17 03/10/17 23:59 23:59 23:59 23:59 Intake Total 8801 207 2320 600 Output Total 40 8 1272 20 Balance 5625 731 5907 580 Weight 218 lb 8 oz Last Vital Signs Temp Pulse Resp BP Pulse Ox 98.6 F 70 20 134/78 99 03/10/17 06:00 03/10/17 06:00 03/10/17 06:00 03/10/17 06:00 03/09/17 21:00 Active Medications Acetylcysteine (Mucomyst 20 Oral / Inh Use Only*) 600 mg NEB DAILY [facility] Last Admin: 03/10/17 10:08 Dose: 600 mg Acetylcysteine (Mucomyst 20 Oral / Inh Use Only*) 600 mg NEB TIDR [facility] Last Admin: 03/10/17 06:35 Dose: 600 mg Albuterol Sulfate (Ventolin 0.083% Nebulizer Soln -) 1 amp NEB Q6H PRN PRN Reason: WHEEZING Last Admin: 03/10/17 10:08 Dose: 1 amp Allopurinol (Zyloprim -) 100 mg PEG DAILY [facility] Last Admin: 03/10/17 09:42 Dose: 100 mg Amlodipine Besylate (Norvasc -) 10 mg PEG DAILY [facility] Last Admin: 03/10/17 09:42 Dose: 10 mg Aspirin (Asa -) 81 mg PEG DAILY [facility] Last Admin: 03/10/17 09:42 Dose: 81 mg Bacitracin (Bacitracin -) 1 applic TP BID [facility] Last Admin: 03/10/17 09:43 Dose: 1 applic Chlordiazepoxide HCl (Librium -) 10 mg PO BID [facility] Last Admin: 03/10/17 09:41 Dose: 10 mg Folic Acid (Folic Acid -) 1 mg PO DAILY [facility] Last Admin: 03/10/17 09:42 Dose: 1 mg Gabapentin (Neurontin -) 300 mg PO TID [facility] Last Admin: 03/10/17 06:40 Dose: 300 mg Heparin Sodium (Porcine) (Heparin -) 5,000 unit SQ TID [facility] Last Admin: 03/10/17 06:40 Dose: 5,000 unit Sodium Chloride (Normal Saline -) 1,000 mls @ 75 mls/hr IV ASDIR [facility] Last Admin: 03/10/17 00:40 Dose: 75 mls/hr Metoprolol Tartrate (Lopressor -) 25 mg PO BID [facility] Last Admin: 03/10/17 09:41 Dose: 25 mg Multi-Ingredient Lotion (Eucerin (Large Jar) -) 1 applic TP DAILY PRN PRN Reason: DRY SKIN Multi-Ingredient Ointment (Zinc Oxide) 1 applic TP BID [facility] Last Admin: 03/09/17 21:22 Dose: Not Given Multivitamins/Minerals/Vitamin C (Tab-A-Vit -) 1 tab PO DAILY [facility] Last Admin: 03/10/17 09:42 Dose: 1 tab Quetiapine Fumarate (Seroquel -) 25 mg PO HS [facility] Sertraline HCl (Zoloft -) 50 mg PO DAILY [facility] Last Admin: 03/10/17 09:42 Dose: 50 mg Sodium Chloride ([place] -) 2 spray NS BID PRN PRN Reason: NASAL CONGESTION Constitutional: Yes: Awake and responsive Eyes: Yes: WNL, Conjunctiva Clear, EOM Intact HENT: Yes: Atraumatic, Normocephalic Neck: Yes: Supple, Trachea Midline Cardiovascular: Yes: Regular Rate and Rhythm Respiratory: Yes: scattered rhonchi ...Inspection: Yes: WNL ...Clubbing: No Gastrointestinal: Yes: Normal Bowel Sounds, Soft, Abdomen, Obese Renal/: Yes: WNL Musculoskeletal: Yes: WNL Extremities: Yes: WNL Edema: No Peripheral Pulses WNL: Yes Integumentary: Yes: WNL Neurological: Yes: WNL, Alert, Oriented ...Motor Strength: WNL Psychiatric: Yes: WNL, Alert, Oriented Labs: Laboratory Results - last 24 hr 03/10/17 03/10/17 06:50 06:50 WBC 10.5 H RBC 3.44 L Hgb 10.7 L Hct 31.9 L MCV 92.8 MCH 31.0 MCHC 33.4 RDW 14.0 Plt Count 336 MPV 9.4 Sodium 141 Potassium 4.1 Chloride 107 Carbon Dioxide 27 Anion Gap 7 L BUN 7 D Creatinine 0.9 Creat Clearance w eGFR > 60 Random Glucose 95 Calcium 9.0 Phosphorus 3.6 Magnesium 1.9 Total Bilirubin 0.5 D AST 23 ALT 29 Alkaline Phosphatase 96 Total Protein 7.0 Albumin 2.7 L D IMP: NSCLC - Adenocarcinoma s/p R VATS/Wedge Resection/CT placement now removed 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 HTN CAD Alcohol Abuse/Dependence Problem List - Problems (1) Alcohol dependence Code(s): F10.20 - ALCOHOL DEPENDENCE, UNCOMPLICATED Qualifiers: Substance use status: with intoxication Complication of substance- induced condition: with unspecified complication Qualified Code(s): F10.229 - Alcohol dependence with intoxication, unspecified; F10.229 - Alcohol dependence with intoxication, unspecified; F10.229 - Alcohol dependence with intoxication, unspecified (2) COPD (chronic obstructive pulmonary disease) Code(s): J44.9 - CHRONIC OBSTRUCTIVE PULMONARY DISEASE, UNSPECIFIED Qualifiers : COPD type: unspecified COPD Qualified Code(s): J44.9 - Chronic obstructive pulmonary disease, unspecified; J44.9 - Chronic obstructive pulmonary disease, unspecified; J44.9 - Chronic obstructive pulmonary disease, unspecified; J44.9 - Chronic obstructive pulmonary disease, unspecified (3) Cough Code(s): R05 - COUGH (4) Lung cancer Code(s): C34.90 - MALIGNANT NEOPLASM OF UNSP PART OF UNSP BRONCHUS OR LUNG Qualifiers: Laterality: unspecified laterality Lung location: overlapping sites Qualified Code(s): C34.80 - Malignant neoplasm of overlapping sites of unspecified bronchus and lung; C34.80 - Malignant neoplasm of overlapping sites of unspecified bronchus and lung; C34.80 - Malignant neoplasm of overlapping sites of unspecified bronchus and lung; C34.80 - Malignant neoplasm of overlapping sites of unspecified bronchus and lung (5) Nicotine dependence Code(s): F17.200 - NICOTINE DEPENDENCE, UNSPECIFIED, UNCOMPLICATED (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 Assessment/Plan Trach collar O2 as needed Chest PT PT BD TX PRN Enteral feeds SQ Heparin Dr Esquivel Problem List - Problems (1) Alcohol dependence Code(s): F10.20 - ALCOHOL DEPENDENCE, UNCOMPLICATED Qualifiers: Substance use status: with intoxication Complication of substance-induced condition: with unspecified complication Qualified Code(s): F10.229 - Alcohol dependence with intoxication, unspecified (2) Cough Code(s): R05 - COUGH (3) Lung cancer Code(s): C34.90 - MALIGNANT NEOPLASM OF UNSP PART OF UNSP BRONCHUS OR LUNG Qualifiers: Laterality: unspecified laterality Lung location: overlapping sites Qualified Code(s): C34.80 - Malignant neoplasm of overlapping sites of unspecified bronchus and lung (4) COPD (chronic obstructive pulmonary disease) Code(s): J44.9 - CHRONIC OBSTRUCTIVE PULMONARY DISEASE, UNSPECIFIED Qualifiers: COPD type: unspecified COPD Qualified Code(s): J44.9 - Chronic obstructive pulmonary disease, unspecified (5) Nicotine dependence Code(s): F17.200 - NICOTINE DEPENDENCE, UNSPECIFIED, UNCOMPLICATED
--- NOTE | 2017-03-10 12:06 | CONSULT ---
Admitting History and Physical - Primary Care Physician PCP: Apolinar Conroy - Admission History of Present Illness: 56 y/o gentleman with h/o Nicotine dependence, HTN, CAD s/p Stenting , hyperlipidemia and recently diagnosed R lung adenocarcinoma who presented for pulmonary resection. 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 Psych meds restarted last week. History Source: Medical Record Limitations to Obtaining History: Clinical Condition, Poor Historian (Baseline o x 3. Pt is oriented to self only today. Impaired memory and insight at this time. Impulsive, restless, distractible. Pt with psych hx/etoh abuse, seen by psychiatrist/psychologist. On various medications. also, r/o hosp psychosis.) - Past Medical History Cardiovascular: Yes: CAD, HTN, Hyperlipdemia Heme/Onc: Yes: Cancer - Smoking History Smoking history: Former smoker Have you smoked in the past 12 months: Yes Aproximately how many cigarettes per day: 6 If you are a former smoker, when did you quit?: 6 - Alcohol/Substance Use Hx Alcohol Use: Yes History - Admission Reason For Visit: MALIGNANT NEOPLASM OF LUNG - General Mental Status: Awake and Alert, Able to Follow Commands, Forgetful, Confused, Flat Affect Attention: Distractible, Moderate Impairment Ability to Follow Directions: Fair Head/Neck Control: Fair - Hearing Hearing: Functional Hearing: Normal Speech Evaluation - Communication Primary Language: [place]INCENTIAN Oral Expression Ability: Yes: Non-Vocal (Laryngectomy) - Speech Production Able to Make Needs Known: Yes: Moderately Impaired, Severely Impaired Intelligibility: Yes: Moderately Impaired, Severely Impaired - Speech Characteristics Rate of Speech: Too Fast (Unable to slow speech rate and overarticulate due to cognitive deficits at this time.) - Language/Auditory Comprehension Follows: Yes: 1 Stage Simple Commands - Language/Verbal Expression Able to Communicate Wants and Needs: Yes: Moderately Impaired, Severely Impaired Functional Communication Status: Yes: Moderately Impaired, Severely Impaired - Swallow Evaluation/Bedside Assessment Current Nutritional Intake: Soft, Thin Liquids Oral Secretions: Yes: WFL Dentition: Yes: Missing Teeth Facial Symmetry at Rest: Symmetrical Facial Symmetry on Retraction: Symmetrical Facial Movement: Controlled Sensation: Normal Against Resistance Opening: Normal Against Resistance Closing: Normal Pucker Lips: Normal Smile: Normal Lingual Movement: Normal, Symmetric Lingual Speed of Movement: Normal Lingual Movement Strgth Against Opposition: Normal Lingual Movement Characteristics: Normal Recommendations - Speech Evaluation, Impression/Plan Impression: Baseline o x 3. Pt is oriented to self only today. Impaired memory and insight at this time. Impulsive, restless, distractible. Pt with psych hx/ etoh abuse, seen by psychiatrist/psychologist. Attempts to speak rapidly, pushing air out of stoma. Unable to slow speech rate and overarticulate, with cues, due to cognitive deficits at this time. Tolerating soft diet/thin liquids , appetite varying, likely sec to confusion. No risk of aspiration with laryngectomy. Recommended Therapies: Other (Communication board created. Pt able to point to pictures but could not focus/retain letters to spell, except for his name "Juan") - Disposition Discharge to: Retirement Facility - Dysphagia Impressions/Plan Swallowing Skills: WFL Recommendations: Psych Consult (Etiology/mgmt of confusion related to possible hypoxia, vs psych/pain medation, hosp psychosis?), ENT Consult (Potential for TEP (Tracheo-esophageal punture?) as well as electrolarynx, dorie d/c.), Other ( Electrolaryx training at [facility] Frequently re-orient pt and educate on Laryngectomy Use of communication board Remind pt to overarticulate sounds, speak slowly,1 word at a time, and not to push out air from stoma.) - Recommendations Diet Consistency: Regular Medication Administration: Whole with water Liquids: Thin Liquids Supplement: Other (as indicated)
[2017-03-10] MEDS: ZINC OXIDE 20% TOPICAL OINTMENT 30 GM TUBE TP SCH ×2 (13:45→22:35)
[2017-03-10] MEDS ORDERED: oxyCODONE HCL 5 MG TABLET PO PRN (14:00)
[2017-03-10] MEDS ORDERED: chlordiazePOXIDE HCL 25 MG CAPSULE PO ONE (14:21)
--- NOTE | 2017-03-10 14:48 | PN ---
Teaching Attending Note Name of Resident: Gloria Zaldivar ATTENDING PHYSICIAN STATEMENT I saw and evaluated the patient. I reviewed the resident's note and discussed the case with the resident. I agree with the resident's findings and plan as documented. SUBJECTIVE: limited hx . No events over night OBJECTIVE: NAD, somewhat follows command, awake. neck with clean wounds. R ANNA drain out . slight edema on L ( over parotid ) : improved. L ANNA . trach collar in place CV: RRR Lungs: clear bilaterally Ext: a clean dry wounds on bilateral anterior thighs Moves all his extremities to commands. equal pupils, no facial droop seen ASSESSMENT AND PLAN: 56 y/o gentleman with h/o Nicotine dependence, HTN, CAD s/p Stenting , hyperlipidemia and recently diagnosed R lung adenocarcinoma who presented for pulmonary resection. 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 Trach in place - cont Mucomyst Nebs with Albuterol 2- Laryngeal SCC s/p larynegectomy, with flap reconstruction: - R ANNA removed .monitor site - dc dilaudid . - start oxycodone - Cont Neurontin - D/W Dr. Obregon , will consult Rad onc. Might need chemo as out pt 3- Agitation/Acute delirium : agitation waxes and wanes - cont librium 10 BID . gave extr dose today - will contact family to visit and orient patient 3- Nutrition: has feedign tube back. - cont soft diet - consult dietitian, calori count. if not meeting nutritional requirements will resume TF 4- HTN -cont norvasc and Metoprolol. 5- CAD: aspirin 6- Nicotine dependence . nicotine patch d/c'd per surgery team request . DVT px with heparin encourage PT
[2017-03-10] MEDS ORDERED: chlordiazePOXIDE 5 MG CAPSULE PO ONE (15:00)
--- NOTE | 2017-03-10 17:47 | PN ---
Progress Note (short form) - Note Progress Note: Patient seen , currently sleeping Prior notes reviewed [place] [facility]- s/p wedge resection SCC of larynx- s/p pharyngolaryngectomy with free flap reconstruction. Bilateral positive neck nodes Ideally RT/Chemotherapy post recovery. May need to enter into a contract with patient that if he is noncompliant treatment will be ceased . Not sure based upon history that risk of undertaking chemotherapy is justified .
[2017-03-10] MEDS ORDERED: MELATONIN 5 MG TABLETS PO ONE (21:00)
--- NOTE | 2017-03-10 21:04 | PN ---
Progress Note (short form) - Note Progress Note: Radiation Oncology (full consult to follow) Pt seen this afternoon, chart/films reviewed, reviewed with Pathology. 56 yo w stage I adenocarcinoma of RUL s/p VATS/wedge rxn w neg margins and stage YUVAL T3N2c SCC of hypopharynx (left PS) s/p laryngopharyngectomy/free flap recon/G-tube, continues to slowly recover from recent surgery. Hx of alcohol dep /abuse, will need detox. Pending further recovery ideally would benefit from chemoradiation due to multiple high risk pathologic features (multiple nodes, LVI, JESICA) but unclear if he could tolerate both or any adjuvant therapy. Would like to start RT 4-6 weeks postop and will require 15 min daily treatments for 6 -7 weeks. Cont postsurgical care and convalescence. To discuss with surgery and med onc teams.
[2017-03-10] MEDS: QUEtiapine FUMARATE 25 MG TABLET (FP) PO SCH (22:35)
[2017-03-11] MEDS: HEPARIN NA (PORCINE) 5,000 UNITS/ML 1ML VIAL SQ SCH ×3 (06:17→21:00)
[2017-03-11] MEDS: GABAPENTIN 300 MG CAPSULE (FP) PO SCH ×3 (06:18→21:01)
[2017-03-11] MEDS: ALBUTEROL SO4 0.083% IH SOL 2.5 MG/3 ML VIAL.NEB. NEB PRN ×3 (06:30→22:00)
[2017-03-11] MEDS: ACETYLCYSTEINE 20% 200MG/ML 4 ML VIAL *FOR ORAL / INH USE ONLY NEB SCH ×3 (06:30→22:00)
[2017-03-11 08:15] LABS: MCH 30.7 pg (25.7-33.7); MCHC 32.8 g/dl (32.0-35.9); MEAN CELL VOLUME 93.6 fl (80-96); MEAN PLT VOLUME 9.7 fl (7.5-11.1); PLATELET COUNT 313 K/MM3 (134-434); RDW 13.9 % (11.9-15.9); WHITE BLOOD COUNT 9.8 K/mm3 (4.0-10.0)
--- NOTE | 2017-03-11 08:25 | PN ---
Teaching Attending Note Name of Resident: Gloria Zaldivar ATTENDING PHYSICIAN STATEMENT I saw and evaluated the patient. I reviewed the resident's note and discussed the case with the resident. I agree with the resident's findings and plan as documented. SUBJECTIVE: Patient is feeling better, out of ICU. OBJECTIVE: Vital Signs Temperature 97.8 F 03/11/17 06:00 Pulse Rate 72 03/11/17 06:30 Respiratory Rate 18 03/11/17 06:00 Blood Pressure 129/83 03/11/17 06:00 O2 Sat by Pulse Oximetry (%) 99 03/11/17 06:30 CBCD WBC 10.5 K/mm3 (4.0-10.0) H 03/10/17 06:50 RBC 3.44 M/mm3 (4.00-5.60) L 03/10/17 06:50 Hgb 10.7 GM/dL (11.7-16.9) L 03/10/17 06:50 Hct 31.9 % (35.4-49) L 03/10/17 06:50 MCV 92.8 fl (80-96) 03/10/17 06:50 MCHC 33.4 g/dl (32.0-35.9) 03/10/17 06:50 RDW 14.0 % (11.9-15.9) 03/10/17 06:50 Plt Count 336 K/MM3 (134-434) 03/10/17 06:50 MPV 9.4 fl (7.5-11.1) 03/10/17 06:50 CMP Sodium 141 mmol/L (136-145) 03/10/17 06:50 Potassium 4.1 mmol/L (3.5-5.1) 03/10/17 06:50 Chloride 107 mmol/L (98-107) 03/10/17 06:50 Carbon Dioxide 27 mmol/L (21-32) 03/10/17 06:50 Anion Gap 7 (8-16) L 03/10/17 06:50 BUN 7 mg/dL (7-18) D 03/10/17 06:50 Creatinine 0.9 mg/dL (0.7-1.3) 03/10/17 06:50 Creat Clearance w eGFR > 60 (>60) 03/10/17 06:50 Random Glucose 95 mg/dL (74-106) 03/10/17 06:50 Calcium 9.0 mg/dL (8.5-10.1) 03/10/17 06:50 Total Bilirubin 0.5 mg/dL (0.2-1.0) D 03/10/17 06:50 AST 23 U/L (15-37) 03/10/17 06:50 ALT 29 U/L (12-78) 03/10/17 06:50 Alkaline Phosphatase 96 U/L (45-117) 03/10/17 06:50 Total Protein 7.0 g/dl (6.4-8.2) 03/10/17 06:50 Albumin 2.7 g/dl (3.4-5.0) L D 03/10/17 06:50 CARDIAC ENZYMES Creatine Kinase 71 IU/L (39-308) 02/11/17 10:24 Troponin I < 0.02 ng/ml (0.00-0.05) 02/11/17 10:24 Current Medications Generic Name Dose Route Start Last Admin Trade Name Freq PRN Reason Stop Dose Admin Acetylcysteine 600 mg 03/07/17 14:00 03/10/17 10:08 Mucomyst 20 Oral / Inh Use Only* NEB 600 mg DAILY JUNIOR Administration Acetylcysteine 600 mg 03/10/17 06:00 03/11/17 06:30 Mucomyst 20 Oral / Inh Use Only* NEB 600 mg TIDR JUNIOR Administration Albuterol Sulfate 1 amp 03/08/17 14:34 03/11/17 06:30 Ventolin 0.083% Nebulizer Soln - NEB 1 amp Q6H PRN Administration WHEEZING Allopurinol 100 mg 03/10/17 12:05 Zyloprim - PO DAILY [facility]IOR Amlodipine Besylate 10 mg 03/10/17 12:05 Norvasc - PO DAILY J[facility]IOR Aspirin 81 mg 03/10/17 12:05 Asa - PO DAILY J[facility]IOR Bacitracin 1 applic 03/10/17 10:00 03/10/17 22:32 Bacitracin - TP 1 applic BID JUNIOR Administration Chlordiazepoxide HCl 10 mg 03/09/17 13:56 03/10/17 22:33 Librium - PO 10 mg BID JUNIOR Administration Folic Acid 1 mg 03/10/17 10:00 03/10/17 09:42 Folic Acid - PO 1 mg DAILY JUNIOR Administration Gabapentin 300 mg 03/10/17 06:00 03/11/17 06:18 Neurontin - PO 300 mg TID JUNIOR Administration Heparin Sodium (Porcine) 5,000 unit 03/10/17 06:00 03/11/17 06:17 Heparin - SQ 5,000 unit TID JUNIOR Administration Metoprolol Tartrate 25 mg 03/10/17 10:00 03/10/17 22:34 Lopressor - PO 25 mg BID JUNIOR Administration Multi-Ingredient Lotion 1 applic 03/09/17 15:03 Eucerin (Large Jar) - TP DAILY PRN DRY SKIN Multi-Ingredient Ointment 1 applic 03/07/17 22:00 03/10/17 22:35 Zinc Oxide TP 1 applic BID JUNIOR Administration Multivitamins/Minerals/Vitamin C 1 tab 03/10/17 10:00 03/10/17 09:42 Tab-A-Vit - PO 1 tab DAILY [facility]UNIOR Administration Oxycodone HCl 10 mg 03/10/17 14:00 Roxicodone - PO Q6H PRN PAIN Quetiapine Fumarate 25 mg 03/10/17 22:00 03/10/17 22:35 Seroquel - PO 25 mg HS JUNIOR Administration Sertraline HCl 50 mg 03/10/17 10:00 03/10/17 09:42 Zoloft - PO 50 mg DAILY JUNIOR Administration Sodium Chloride 2 spray 03/09/17 23:11 [place] - NS BID PRN NASAL CONGESTION Home Medications Medication Instructions Recorded Amlodipine Besylate 10 mg PO DAILY 12/23/16 Atorvastatin Ca [Lipitor] 10 mg PO HS 12/23/16 Gabapentin 800 mg PO TID 12/23/16 Quetiapine Fumarate "Xr" [Seroquel 300 mg PO ACDIN 12/23/16 Xr -] Sertraline HCl [Zoloft] 100 mg PO BID 12/23/16 Folic Acid 1 mg PO DAILY 01/02/17 Allopurinol [Zyloprim -] 100 mg PO DAILY 02/12/17 Aspirin [ASA -] 81 mg PO DAILY 02/12/17 PE: per resident's note ASSESSMENT AND PLAN: 56 y/o gentleman with h/o Nicotine dependence, HTN, CAD s/p Stenting , hyperlipidemia and recently diagnosed R lung adenocarcinoma who presented for pulmonary resection. Also was found to have laryngeal SCC #Acute hypoxic resp failure s/p extubation Trach in place , on Mucomyst with albuterol Nebs continue # Laryngeal SCC s/p larynegectomy, with flap reconstruction: R ANNA removed .monitor site - dc dilaudid , started oxycodone , Cont Neurontin . D/W Dr. Obregon , will consult Rad onc. Might need chemo as out pt # Agitation/Acute delirium : agitation waxes and wanes on librium 10 BID, contact family to visit and orient patient # Nutrition: has feeding tube back. cont soft diet . patient is tolerating his diet , calori count. if not meeting nutritional requirements will resume TF # HTN :cont norvasc and Metoprolol. # CAD: aspirin # Nicotine dependence . nicotine patch d/c'd per surgery team request . DVT px with heparin encourage PT
[2017-03-11] MEDS: ASPIRIN 81 MG CHEWABLE TABLETS PO SCH (10:12)
[2017-03-11] MEDS: chlordiazePOXIDE 5 MG CAPSULE PO SCH ×2 (10:17→21:01)
[2017-03-11] MEDS: METOPROLOL TARTRATE 25 MG TABLET (FP) PO SCH ×2 (10:17→21:01)
[2017-03-11] MEDS: FOLIC ACID 1 MG TABLET (FP) PO SCH (10:18)
[2017-03-11] MEDS: amLODIPine BESYLATE 10 MG TABLET (FP) PO SCH (10:18)
[2017-03-11] MEDS: MULTIVITAMINS (DAILY MVI) TABLET (FP) PO SCH (10:18)
[2017-03-11] MEDS: ALLOPURINOL 100 MG TABLET (FP) PO SCH (10:19)
[2017-03-11] MEDS: BACITRACIN 15 GM TUBE TOPICAL OINTMENT TP SCH ×2 (10:20→21:00)
[2017-03-11] MEDS: SERTRALINE HCL 50 MG TABLET (FP) PO SCH (10:26)
[2017-03-11] MEDS ORDERED: PT OWN MED DRAWER 7, Y5N ONE (10:39)
[2017-03-11] MEDS: ZINC OXIDE 20% TOPICAL OINTMENT 30 GM TUBE TP SCH ×2 (11:09→21:01)
--- NOTE | 2017-03-11 11:50 | PN ---
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 He is writing some words functionally, eg "air freshener.' He is not oriented and has poor recall of orientation info after 1 minute without distraction. He is tolerating his diet. Total laryngectomy separate the airway from the esophagus so aspiration is unlikely.If anatomic/physoliogic changes occur, Dysphagia is possible.eg fistula, stricture,dysmotility,xerostomia, etc. Pt will need cognitive and communication rehabilitation. Request ENT input regarding potential for Traceo-Esophageal Puncture in the future. Obtain electrlarynx at next facility with plan for speech therapy.
--- NOTE | 2017-03-11 12:07 | PN ---
Physical Exam: SUBJECTIVE: Patient seen and examined. Pt used communication board effectively today. Pt calm and focused. No fever, chills. No overnight events. OBJECTIVE: Vital Signs Period Temp Pulse Resp BP Sys/Clay Pulse Ox Last 24 Hr 97.3 F-98.9 F 66-84 18-22 111-137/59-83 98-100 GENERAL: Alert, NAD. NECK: Minimal erythema and edema around tracheostome. Slight edema over sheree parotid glands, symmetrical and soft to palpation. Incision C/D/I. Left ANNA present draining serosanguinous fluid. LUNGS: Breath sounds equal, clear to anterior auscultation bilaterally, no accessory muscle use. HEART: Regular rate and rhythm, S1, S2 without murmur, rub or gallop. ABDOMEN: Soft, nontender, nondistended, (+) bowel sounds x 4. Incision C/D/I, demond removed. G-tube replaced last night by Dr. Bledsoe, intact. EXTREMITIES: Warm, well-perfused, no edema. Clean dressing to Left anterior thigh. NEURO: Pt able to communicate using communication board. SKIN: Warm, dry, normal turgor, no rashes or lesions noted Laboratory Results - last 24 hr 03/11/17 07:30 WBC 9.8 RBC 3.48 L Hgb 10.7 L Hct 32.6 L MCV 93.6 MCH 30.7 MCHC 32.8 RDW 13.9 Plt Count 313 MPV 9.7 Active Medications Generic Name Dose Route Start Last Admin Trade Name Freq PRN Reason Stop Dose Admin Acetylcysteine 600 mg 03/07/17 14:00 03/10/17 10:08 Mucomyst 20 Oral / Inh Use Only* NEB 600 mg DAILY JUNIOR Administration Acetylcysteine 600 mg 03/10/17 06:00 03/11/17 06:30 Mucomyst 20 Oral / Inh Use Only* NEB 600 mg TIDR JUNIOR Administration Albuterol Sulfate 1 amp 03/08/17 14:34 03/11/17 06:30 Ventolin 0.083% Nebulizer Soln - NEB 1 amp Q6H PRN Administration WHEEZING Allopurinol 100 mg 03/10/17 12:05 03/11/17 10:19 Zyloprim - PO 100 mg DAILY JUNIOR Administration Amlodipine Besylate 10 mg 03/10/17 12:05 03/11/17 10:18 Norvasc - PO 10 mg DAILY JUNIOR Administration Aspirin 81 mg 03/10/17 12:05 03/11/17 10:12 Asa - PO 81 mg DAILY JUNIOR Administration Bacitracin 1 applic 03/10/17 10:00 03/11/17 10:20 Bacitracin - TP 1 applic BID JUNIOR Administration Chlordiazepoxide HCl 10 mg 03/09/17 13:56 03/11/17 10:17 Librium - PO 10 mg BID JUNIOR Administration Folic Acid 1 mg 03/10/17 10:00 03/11/17 10:18 Folic Acid - PO 1 mg DAILY JUNIOR Administration Gabapentin 300 mg 03/10/17 06:00 03/11/17 06:18 Neurontin - PO 300 mg TID JUNIOR Administration Heparin Sodium (Porcine) 5,000 unit 03/10/17 06:00 03/11/17 06:17 Heparin - SQ 5,000 unit TID JUNIOR Administration Metoprolol Tartrate 25 mg 03/10/17 10:00 03/11/17 10:17 Lopressor - PO 25 mg BID JUNIOR Administration Multi-Ingredient Lotion 1 applic 03/09/17 15:03 Eucerin (Large Jar) - TP DAILY PRN DRY SKIN Multi-Ingredient Ointment 1 applic 03/07/17 22:00 03/11/17 11:09 Zinc Oxide TP 1 applic BID JUNIOR Administration Multivitamins/Minerals/Vitamin C 1 tab 03/10/17 10:00 03/11/17 10:18 Tab-A-Vit - PO 1 tab DAILY JUNIOR Administration Oxycodone HCl 10 mg 03/10/17 14:00 Roxicodone - PO Q6H PRN PAIN Quetiapine Fumarate 25 mg 03/10/17 22:00 03/10/17 22:35 Seroquel - PO 25 mg HS JUNIOR Administration Sertraline HCl 50 mg 03/10/17 10:00 03/11/17 10:26 Zoloft - PO 50 mg DAILY JUNIOR Administration Sodium Chloride 2 spray 03/09/17 23:11 [place] Nasal [place] - NS BID PRN NASAL CONGESTION ASSESSMENT/PLAN: 56yo M with PMH of nicotine dependence, Right lung CA, CAD with 2 stents, htn, hld, gout, presented with worsening cough and sputum production and admitted to med-surg for lung resection, 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 # acute hypoxic respiratory failure - likely 2/2 mucous plug - resolved, trach in place - continue mucomyst with albuterol nebs # Laryngeal squamous cell Ca s/p laryngectomy with left anterolateral thigh flap pharyngeal reconstruction on 02/20/17 - POD 19 - continue Oxycodone 10mg q6hr prn - continue Neurontin TID - post-op care per surgery - incentive spirometry - O2 prn - Rad-Onc (Dr. Potter) recs appreciated: consider starting radiation therapy 4-6 weeks post-op # agitation - improved - continue 1:1 and restraints - Librium taper # htn - continue Norvasc and Lopressor # CAD s/p 2 stents - continue ASA # gout - continue Allopurinol # 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 Gilmore as outpatient # FEN - Fluids: encourage po - Electolytes: wnl, continue to monitor. - Nutrition: soft with thin liquids, f/u Calorie Count # Prophylaxis - DVT ppx with Heparin 5,000U SQ TID - deconditioning ppx with PT Visit type - Emergency Visit Emergency Visit: Yes ED Registration Date: 02/11/17 Care time: The patient presented to the Emergency Department on the above date and was hospitalized for further evaluation of their emergent condition. - New Patient This patient is new to me today: No - Critical Care Critical Care patient: No
--- NOTE | 2017-03-11 12:55 | PN ---
Progress Note (short form) - Note Progress Note: PULMONARY LESS CONFUSED WRIST RESTRAINTS VSS/AFEBRILE ANICTERIC/LEFT NECK DRAIN REMAINS W DRAINAGE/TRACH W O2 COLLAR CLEAR ANTERIOR BREATH SOUNDS S1S2 BS+ SOFT NO EDEMA LABS/MEDS/NOTES/IMAGES REVIEWED 1) newly diagnosed RUL adenocarcinoma - s/p vats wedge resection/right chest tube w drainage was removed - Dilaudid/Oxycodone for pain - incentive spirometry - O2 prn 2) Supraglottic lesion - s/p laryngoscopy biopsy revealing squamous cell Ca - s/p total laryngectomy and radical neck dissection revealing stage 4b disease - - should be evaluated for adjuvant therapy when clinically stable 3) ETOH abuse 4) CAD s/p PCI stents 5) DVT Prophylaxis - Heparin 5,000U SQ BID - sheree Anni MARTINEZ MD
--- NOTE | 2017-03-11 18:25 | CONS ---
DATE OF CONSULTATION: 03/10/2017 REFERRING PHYSICIAN: Fabio Bledsoe M.D. 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 HISTORY OF PRESENT ILLNESS: The patient is a 56-year-old gentleman whose history was obtained from the chart due to patient's tracheostomy status post laryngopharyngectomy on February 20, 2017. He initially presented with a right upper lobe mass which was biopsied showing adenocarcinoma. On staging PET CT scan, there was suspicious uptake in the left supraglottic region. The patient also complained of throat pain. He underwent direct laryngoscopy and biopsy of a left piriform sinus ulcerated tumor. Pathology showed a poorly differentiated squamous cell carcinoma, P16 negative. On February 16, 2017, the patient underwent a right VATS and right upper lobe wedge resection of the adenocarcinoma. Pathology demonstrated a 2.2 cm, moderately differentiated adenocarcinoma with pleural invasion, negative surgical margins. There was lymphovascular invasion, and a 4R lymph node was negative. The tumor was stage I, T2 N0. On February 20, 2017, Dr. Bledsoe performed a pharyngolaryngectomy with modified radical left neck dissection levels 1 through 5, and modified radicle right neck dissection levels 2a through 4. An anterolateral thigh free flap reconstruction was performed by Dr. Olivares. The patient also had a gastrostomy tube placed. Pathology showed a 4-cm moderately differentiated invasive squamous cell carcinoma involving the left piriform sinus and supraglottic larynx, but there was no involvement of the hyoid thyroid gland or thyroid cartilage, and no tracheal invasion. 4 out of 57 left neck lymph nodes showed metastatic carcinoma with extranodal extension, with the largest node measuring 2.2 cm. One out of 19 nodes from the right neck was metastatic. Preoperative CT scan did show the left piriform sinus mass and suggestion of left thyroid cartilage and strap muscle invasion, as well as multiple left neck lymph nodes. Postoperatively the patient was managed for the agitation secondary to substance abuse and dependence. He had acute hypoxic respiratory failure secondary to most likely a mucous plug. His diet has been advanced to soft food. The gastrostomy tube remains. A left ANNA drain continues to drain, serosanguineous fluid. He is beginning physical therapy but still requires 1:1 observation and extremity restraints for periods of agitation and confusion. We are asked to evaluate for possible adjuvant radiation therapy. PAST MEDICAL HISTORY: Pain from chart, coronary artery disease status post 2 stents, hypertension, hyperlipidemia, COPD, alcohol dependence and abuse, hip replacement. PAST SURGICAL HISTORY: As noted previously. ALLERGIES: No known drug allergies. CURRENT MEDICATIONS: Bacitracin, Neurontin, Zoloft, allopurinol, Seroquel, Librium, Ventolin nebulizer p.r.n., Lopressor, Norvasc, nasal spray, Mucomyst inhaler, multiple vitamin, aspirin 81 mg, melatonin, zinc ointment, folic acid. SOCIAL HISTORY: Up to 2 pints of vodka daily, and wine. Cigarettes, 2 packs per day. 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 FAMILY HISTORY: Noncontributory. REVIEW OF SYSTEMS: Unobtainable due to confusion. PHYSICAL EXAMINATION: General: gentleman who is awake, alert, appears disoriented, nonverbal secondary to tracheostomy on 1:1 observation. Wrist restraints are in place. Neck: The neck wounds are clean, dry, with a left ANNA draining serosanguineous fluid, tracheostoma is patent. Oral cavity is dry. Cardiovascular: Regular. Chest: Surgical incisions are healing well. No wheezing, rhonchi, rales. No axillary adenopathy. Abdomen: Gastrostomy tube in place. Soft, nondistended. Extremities: Donor graft site dressing clean, dry, over the thighs. Diaper in place. Extremities, no significant edema. Moves all 4 extremities. PATHOLOGIC DATA: See HPI. RADIOLOGIC DATA: See HPI. LABORATORY DATA: WBC 10.5, hemoglobin 10.7, platelet count 336,000. Electrolytes within normal limits. BUN 7, creatinine 0.9, calcium 9. Liver function test within normal limits. Albumin 2.7. 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 Given his history of alcohol dependence, rehabilitation and detox will need to be considered before any further treatments. Pending further recovery, ideally he would benefit from concurrent chemoradiation therapy due to multiple high-risk pathologic features including multiple metastatic lymph nodes, extranodal extension and lymphovascular invasion; however, it is unclear at this time if he can tolerate any adjuvant therapy given his current agitation and issues related to his alcohol dependence. He would need 6-7 weeks of 15-minute daily treatments, typically beginning 4-6 weeks after surgery. For now, he will continue post surgical care and convalescence. I shall discuss future plans for adjuvant therapy with the surgical and medical oncology teams as the patient improves, will determine if he becomes a candidate for adjuvant therapy. Thank you for asking me to see this patient. ERIN VANEGAS M.D. [id number] MTDD
--- NOTE | 2017-03-11 20:51 | PN ---
Progress Note (short form) - Note Progress Note: Postop from pharyngolaryngectomy, bilateral neck dissections and free flap reconstruction. No acute problems. Tolerating PO soft foods. Examination: somewhat agitated but able to converse and respond somewhat appropriately. wounds CDI, no erythema or drainage, drain serous/minimal-- removed. Abdomen soft and nontender--G-tube intact. Labs unremarkable. A/P: Continues to recover postop. Awaiting further recovery of mental/ emotional state. Recall Psychiatry and Detox teams to adjust (and hopefully decrease) medication. DC narcotics. Motrin as needed for pain. Advance to regular diet. Continue PT/ambulation with assistance. Radiation and medical oncology notes appreciated. Will see if he recovers mentally/emotionally enough to consider a course of treatment. In terms of placing a tracheoesophageal puncture, I will do that procedure when and if indicated. For now, he would not be able to learn to use it, so will wait.
[2017-03-11] MEDS ORDERED: MELATONIN 5 MG TABLETS PO ONE (21:00)
[2017-03-11] MEDS: IBUPROFEN 400 MG TABLET (FP) PO PRN (21:00)
[2017-03-11] MEDS: QUEtiapine FUMARATE 25 MG TABLET (FP) PO SCH (21:01)
[2017-03-12] MEDS: ACETYLCYSTEINE 20% 200MG/ML 4 ML VIAL *FOR ORAL / INH USE ONLY NEB SCH ×4 (06:25→22:20)
[2017-03-12] MEDS: GABAPENTIN 300 MG CAPSULE (FP) PO SCH ×2 (06:35→16:51)
[2017-03-12] MEDS: HEPARIN NA (PORCINE) 5,000 UNITS/ML 1ML VIAL SQ SCH ×3 (06:35→21:39)
[2017-03-12] MEDS ORDERED: LORazepam 2 MG/ML SDV VIAL IVPUSH PRN (10:24)
--- NOTE | 2017-03-12 10:44 | PN ---
Progress Note (short form) - Note Progress Note: Subjective: SECURITIES AND REAL ESTATE DIRECTOR was called as his trach came out spontaneously. . over night he had no agitation . yesterday he walked with PT. more awake per RN Objective: Vital Signs: Last Vital Signs Temp Pulse Resp BP Pulse Ox 98.8 F 70 18 144/88 100 03/12/17 06:00 03/12/17 09:59 03/12/17 06:00 03/12/17 06:00 03/12/17 09:59 Physical Exam: NAD,awake , smiling . anesthesiologist at bed side neck with trach hole , no draiange or secretions . minimal erythema and edema CV: RRR Lungs: clear bilaterally Ext: a clean dry wounds on bilateral anterior thighs Moves all his extremities to commands. equal pupils, no facial droop seen ASSESSMENT AND PLAN: 56 y/o gentleman with h/o Nicotine dependence, HTN, CAD s/p Stenting , hyperlipidemia and recently diagnosed R lung adenocarcinoma who presented for pulmonary resection. 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 trach came out spontaneously - trach was placed by Anesthesiologist. appreciate help - cont mucomyst Nebs 2- Laryngeal SCC s/p larynegectomy, with flap reconstruction: - will need Radiation 4-6 w after surgery as out tp - NSAIDs for pain - Cont Neurontin 3- Agitation/Acute delirium : with possible alcohol/benzo withdrawal . mental status much improved . - decrease librium to 5 BID . 3- Nutrition: - cont soft diet - if he does not meet his nutritional requirements , then will need TF 4- HTN -cont norvasc and Metoprolol. 5- CAD: aspirin 6- Nicotine dependence . nicotine patch was not recommended by surgical team DVT px with heparin Cont PT Visit type - Emergency Visit Emergency Visit: Yes ED Registration Date: 02/11/17 Care time: The patient presented to the Emergency Department on the above date and was hospitalized for further evaluation of their emergent condition. - New Patient This patient is new to me today: No - Critical Care Critical Care patient: No
--- NOTE | 2017-03-12 11:11 | RAPID ---
Physical Examination Findings/Remarks: RR was called around 10Am. RR team responded immediately. Respiratory staff and nurse were in the room, who stated the patient's trach tube is dislodged, unsure if patient had pulled it out. Patient's history reviewed. 56yo M with recently diagnosed R lung adenoCA w/ Laryngeal carcinoma, s/p laryngectomy with flap reconstruction. Vital signs noted: HR 90s. BP 144/88. O2 100%. RR 18-20s. Initial Physical Exam: GEN: Awake, alert, not in acute respiratory distress, nods to yes/no CV: Regular Rate + Rhythm LUNG: Grossly CTABL anteriorly EXT: bilateral ABD pads overlying graft sites over anterior thighs, clean and dry Anesthesiology was paged STAT. Arrived immediately. Patient intermittently had difficulty breathing, which would improve with externally holding the laryngeal flap up or positional changes. Suction was started, upon suctioning the tracheostomy, the patient started vomitting. Suctioning was started on the mouth with relief. O2 sats remained 95s-100s throughout. Dr. Conroy was notified, and upon her arrival she was debriefed and took over for the care of the patient. Decision was made to re-insert the trach. Further care was deferred to primary team Total critical time spent at bedside 35minutes
--- NOTE | 2017-03-12 12:05 | PN ---
Progress Note (short form) - Note Progress Note: Patient seen and examined S/P dislodging of trachea with re- insertion More alert Seems to respond to questions Last Vital Signs Temp Pulse Resp BP Pulse Ox 98.8 F 70 18 144/88 100 03/12/17 06:00 03/12/17 09:59 03/12/17 06:00 03/12/17 06:00 03/12/17 09:59 Trach Lungs- diminished breath sounds bilaterally Cor-RSR Soft abd Ext- neg CBC, BMP 03/11/17 07:30 03/10/17 06:50 Current Medications Generic Name Dose Route Start Last Admin Trade Name Freq PRN Reason Stop Dose Admin Acetylcysteine 600 mg 03/07/17 14:00 03/10/17 10:08 Mucomyst 20 Oral / Inh Use Only* NEB 600 mg DAILY JUNIOR Administration Acetylcysteine 600 mg 03/10/17 06:00 03/12/17 06:25 Mucomyst 20 Oral / Inh Use Only* NEB Not Given TIDR JUNIOR Albuterol Sulfate 1 amp 03/08/17 14:34 03/11/17 22:00 Ventolin 0.083% Nebulizer Soln - NEB 1 amp Q6H PRN Administration WHEEZING Allopurinol 100 mg 03/10/17 12:05 03/11/17 10:19 Zyloprim - PO 100 mg DAILY JUNIOR Administration Amlodipine Besylate 10 mg 03/10/17 12:05 03/11/17 10:18 Norvasc - PO 10 mg DAILY JUNIOR Administration Aspirin 81 mg 03/10/17 12:05 03/11/17 10:12 Asa - PO 81 mg DAILY JUNIOR Administration Bacitracin 1 applic 03/10/17 10:00 03/11/17 21:00 Bacitracin - TP 1 applic BID JUNIOR Administration Chlordiazepoxide HCl 5 mg 03/12/17 10:44 Librium - PO BID JUNIOR Folic Acid 1 mg 03/10/17 10:00 03/11/17 10:18 Folic Acid - PO 1 mg DAILY JUNIOR Administration Gabapentin 300 mg 03/10/17 06:00 03/12/17 06:35 Neurontin - PO 300 mg TID JUNIOR Administration Heparin Sodium (Porcine) 5,000 unit 03/10/17 06:00 03/12/17 06:35 Heparin - SQ 5,000 unit TID JUNIOR Administration Ibuprofen 400 mg 03/11/17 20:55 03/11/17 21:00 Motrin - PO 400 mg Q6H PRN Administration PAIN Metoprolol Tartrate 25 mg 03/10/17 10:00 03/11/17 21:01 Lopressor - PO 25 mg BID JUNIOR Administration Multi-Ingredient Lotion 1 applic 03/09/17 15:03 Eucerin (Large Jar) - TP DAILY PRN DRY SKIN Multi-Ingredient Ointment 1 applic 03/07/17 22:00 03/11/17 21:01 Zinc Oxide TP 1 applic BID JUNIOR Administration Multivitamins/Minerals/Vitamin C 1 tab 03/10/17 10:00 03/11/17 10:18 Tab-A-Vit - PO 1 tab DAILY JUNIOR Administration Quetiapine Fumarate 25 mg 03/10/17 22:00 03/11/17 21:01 Seroquel - PO 25 mg HS JUNIOR Administration Sertraline HCl 50 mg 03/10/17 10:00 03/11/17 10:26 Zoloft - PO 50 mg DAILY JUNIOR Administration Sodium Chloride 2 spray 03/09/17 23:11 [place] Nasal [place] - NS BID PRN NASAL CONGESTION Impression [place] of lung- s/p wedge resection SCC of larynx- s/p laryngectomy with flap re-construction Bilateral SCC in neck nodes Ideally, RT/Chemotherapy is indicated for Stage IV SCC with bilateral neck nodes. Will need to evaluate in future question of systemic therapy added to RT.
[2017-03-12] MEDS: FOLIC ACID 1 MG TABLET (FP) PO SCH (12:14)
[2017-03-12] MEDS: SERTRALINE HCL 50 MG TABLET (FP) PO SCH (12:14)
[2017-03-12] MEDS: METOPROLOL TARTRATE 25 MG TABLET (FP) PO SCH (12:14)
[2017-03-12] MEDS: amLODIPine BESYLATE 10 MG TABLET (FP) PO SCH (12:15)
[2017-03-12] MEDS: MULTIVITAMINS (DAILY MVI) TABLET (FP) PO SCH (12:15)
[2017-03-12] MEDS: ALLOPURINOL 100 MG TABLET (FP) PO SCH (12:15)
[2017-03-12] MEDS: BACITRACIN 15 GM TUBE TOPICAL OINTMENT TP SCH ×2 (12:16→21:39)
[2017-03-12] MEDS: ASPIRIN 81 MG CHEWABLE TABLETS PO SCH (12:16)
[2017-03-12] MEDS: ZINC OXIDE 20% TOPICAL OINTMENT 30 GM TUBE TP SCH ×2 (12:18→21:39)
[2017-03-12] MEDS: ALBUTEROL SO4 0.083% IH SOL 2.5 MG/3 ML VIAL.NEB. NEB PRN ×2 (14:00→22:20)
[2017-03-12] MEDS: chlordiazePOXIDE 5 MG CAPSULE PO SCH (14:56)
[2017-03-12] MEDS: ALBUTEROL SO4 0.5 % INH SOLN 2.5 MG/0.5 ML VIAL.NEB. NEB PRN (17:10)
[2017-03-12] MEDS ORDERED: LORazepam 2 MG/ML SDV VIAL IVPUSH ONE (20:22)
[2017-03-12] MEDS ORDERED: ONDANSETRON 4 MG/2 ML VIAL IVPUSH ONE (20:23)
[2017-03-13] MEDS: QUEtiapine FUMARATE 25 MG TABLET (FP) PO SCH ×2 (00:04→22:43)
[2017-03-13] MEDS: METOPROLOL TARTRATE 25 MG TABLET (FP) PO SCH ×3 (00:05→22:43)
[2017-03-13] MEDS: GABAPENTIN 300 MG CAPSULE (FP) PO SCH ×4 (00:05→22:43)
[2017-03-13] MEDS: chlordiazePOXIDE 5 MG CAPSULE PO SCH ×3 (00:05→22:43)
[2017-03-13] MEDS: ACETYLCYSTEINE 20% 200MG/ML 4 ML VIAL *FOR ORAL / INH USE ONLY NEB SCH ×3 (06:35→21:00)
[2017-03-13] MEDS: ALBUTEROL SO4 0.083% IH SOL 2.5 MG/3 ML VIAL.NEB. NEB PRN ×3 (06:35→21:00)
[2017-03-13] MEDS: HEPARIN NA (PORCINE) 5,000 UNITS/ML 1ML VIAL SQ SCH ×3 (06:38→22:44)
--- NOTE | 2017-03-13 07:18 | PN ---
Progress Note (short form) - Note Progress Note: ANESTHESIOLOGY PROCEDURE NOTE CALLED TO BEDSIDE DURING RAPID RESPONSE FOR RESPIRATORY DISTRESS. THE PATIENT HAD DISLODGED HIS TRACHEOSTOMY TUBE AND WAS HAVING DIFFICULTY BREATHING. TRACTION WAS APPLIED TO HIS CHIN TO RELIEVE OBSTRUCTION AND THE PATIENT THEN HAD NO DIFFICULTY BREATHING. WHENEVER TRACTION WAS RELEASED, THE PATIENT'S SOFT TISSUE WOULD OBSTRUCT AND HE WOULD HAVE DIFFICULTY AGAIN. A DECISION WAS MADE TO REINSERT THE TRACH TUBE THE PATIENT WAS PRE MEDICATED WITH 1MG ATIVAN IVP AND AN 8.0 TRACH TUBE WAS PREPED WITH SURGI LUBE AND STYLETTED. THE TUBE WAS INSERTED WITH NO RESISTANCE AND THE PATIENT CONTINUED TO BREATH WITHOUT ASSISTANCE. ALL VITAL SIGNS OF THE PATIENT REMAINED STABLE THROUGHOUT THE PROCEDURE. CARE WAS RETURNED TO THE NURSING STAFF OF THE FLOOR.
--- NOTE | 2017-03-13 11:04 | PN ---
Progress Note (short form) - Note Progress Note: PULMONARY SITTER 1;1 VSS/AFEBRILE ANICTERIC/TRACH RE-INSERTED W O2 COLLAR CLEAR ANTERIOR BREATH SOUNDS S1S2 BS+ SOFT NO EDEMA LABS/MEDS/NOTES/IMAGES REVIEWED 1) newly diagnosed RUL adenocarcinoma - s/p vats wedge resection/right chest tube w drainage was removed - Dilaudid/Oxycodone for pain - incentive spirometry - O2 prn 2) Supraglottic lesion - s/p laryngoscopy biopsy revealing squamous cell Ca - s/p total laryngectomy and radical neck dissection revealing stage 4b disease - - should be evaluated for adjuvant therapy when clinically stable 3) ETOH abuse 4) CAD s/p PCI stents 5) DVT Prophylaxis - Heparin 5,000U SQ BID - sheree Anni MARTINEZ MD
[2017-03-13] MEDS: ASPIRIN 81 MG CHEWABLE TABLETS PO SCH (11:42)
[2017-03-13] MEDS: SERTRALINE HCL 50 MG TABLET (FP) PO SCH (11:43)
[2017-03-13] MEDS: MULTIVITAMINS (DAILY MVI) TABLET (FP) PO SCH (11:43)
[2017-03-13] MEDS: amLODIPine BESYLATE 10 MG TABLET (FP) PO SCH (11:43)
[2017-03-13] MEDS: ALLOPURINOL 100 MG TABLET (FP) PO SCH (11:43)
[2017-03-13] MEDS: FOLIC ACID 1 MG TABLET (FP) PO SCH (11:43)
[2017-03-13] MEDS: ZINC OXIDE 20% TOPICAL OINTMENT 30 GM TUBE TP SCH ×2 (12:00→22:50)
[2017-03-13] MEDS: BACITRACIN 15 GM TUBE TOPICAL OINTMENT TP SCH ×2 (12:00→22:50)
--- NOTE | 2017-03-13 15:26 | PN ---
Progress Note, [employer]INO FLOOR PERSON - Note Progress Note: Appreciate ENT input. For possible TEP, if pt recovers sufficiently and is able to learn and use safely and affectively. Selected Entries 03/09/17 03/09/17 03/09/17 02:00 05:28 10:00 Breakfast Lunch Supper Temperature 98.4 F 98.1 F 98.5 F 03/09/17 03/09/17 03/09/17 14:00 17:00 18:51 Breakfast Lunch Supper 50% Temperature 97.7 F 97.9 F 03/09/17 03/09/17 03/09/17 19:30 20:25 23:00 Breakfast Lunch Supper 75% Temperature 98.9 F 98 F 03/10/17 03/10/17 03/10/17 02:00 06:00 11:00 Breakfast Lunch Supper Temperature 99.4 F 98.6 F 98.9 F 03/12/17 03/12/17 03/12/17 09:30 14:55 18:15 Breakfast 50% Lunch 0 Supper 25% Temperature Diet upgraded to regular. Medeical events noted. RR as trach "popped out" and period of vomiting and BM's. Now on clear liquids. Consider flushing PEG to keep functioning if not in use. Monitor fror sufficient nutritional intake, need for supplement through PEG?
--- NOTE | 2017-03-13 18:07 | PN ---
Teaching Attending Note Name of Resident: Gloria Zaldivar ATTENDING PHYSICIAN STATEMENT I saw and evaluated the patient. I reviewed the resident's note and discussed the case with the resident. I agree with the resident's findings and plan as documented. SUBJECTIVE: Patient is comfortable with no acute distress. Patient is on restrains since at times pulling his dressing unintentionally, wanted to pull his graft dressing when examining the patient. OBJECTIVE: Vital Signs Temperature 98.9 F 03/13/17 11:33 Pulse Rate 76 03/13/17 11:33 Respiratory Rate 20 03/13/17 11:33 Blood Pressure 131/79 03/13/17 11:33 O2 Sat by Pulse Oximetry (%) 100 03/13/17 11:13 CBCD WBC 9.8 K/mm3 (4.0-10.0) 03/11/17 07:30 RBC 3.48 M/mm3 (4.00-5.60) L 03/11/17 07:30 Hgb 10.7 GM/dL (11.7-16.9) L 03/11/17 07:30 Hct 32.6 % (35.4-49) L 03/11/17 07:30 MCV 93.6 fl (80-96) 03/11/17 07:30 MCHC 32.8 g/dl (32.0-35.9) 03/11/17 07:30 RDW 13.9 % (11.9-15.9) 03/11/17 07:30 Plt Count 313 K/MM3 (134-434) 03/11/17 07:30 MPV 9.7 fl (7.5-11.1) 03/11/17 07:30 CMP Sodium 141 mmol/L (136-145) 03/10/17 06:50 Potassium 4.1 mmol/L (3.5-5.1) 03/10/17 06:50 Chloride 107 mmol/L (98-107) 03/10/17 06:50 Carbon Dioxide 27 mmol/L (21-32) 03/10/17 06:50 Anion Gap 7 (8-16) L 03/10/17 06:50 BUN 7 mg/dL (7-18) D 03/10/17 06:50 Creatinine 0.9 mg/dL (0.7-1.3) 03/10/17 06:50 Creat Clearance w eGFR > 60 (>60) 03/10/17 06:50 Random Glucose 95 mg/dL (74-106) 03/10/17 06:50 Calcium 9.0 mg/dL (8.5-10.1) 03/10/17 06:50 Total Bilirubin 0.5 mg/dL (0.2-1.0) D 03/10/17 06:50 AST 23 U/L (15-37) 03/10/17 06:50 ALT 29 U/L (12-78) 03/10/17 06:50 Alkaline Phosphatase 96 U/L (45-117) 03/10/17 06:50 Total Protein 7.0 g/dl (6.4-8.2) 03/10/17 06:50 Albumin 2.7 g/dl (3.4-5.0) L D 03/10/17 06:50 CARDIAC ENZYMES Creatine Kinase 71 IU/L (39-308) 02/11/17 10:24 Troponin I < 0.02 ng/ml (0.00-0.05) 02/11/17 10:24 Current Medications Generic Name Dose Route Start Last Admin Trade Name Freq PRN Reason Stop Dose Admin Acetylcysteine 600 mg 03/10/17 06:00 03/13/17 14:51 Mucomyst 20 Oral / Inh Use Only* NEB 600 mg TIDR JUNIOR Administration Albuterol Sulfate 1 amp 03/05/17 19:48 03/12/17 17:10 Ventolin 0.5% - NEB 1 amp Q4H PRN Administration SHORT OF BREATH/WHEEZING Albuterol Sulfate 1 amp 03/08/17 14:34 03/13/17 14:52 Ventolin 0.083% Nebulizer Soln - NEB 1 amp Q6H PRN Administration WHEEZING Allopurinol 100 mg 03/10/17 12:05 03/13/17 11:43 Zyloprim - PO 100 mg DAILY JUNIOR Administration Amlodipine Besylate 10 mg 03/10/17 12:05 03/13/17 11:43 Norvasc - PO 10 mg DAILY JUNIOR Administration Aspirin 81 mg 03/10/17 12:05 03/13/17 11:42 Asa - PO 81 mg DAILY JUNIOR Administration Bacitracin 1 applic 03/10/17 10:00 03/13/17 12:00 Bacitracin - TP 1 applic BID JUNIOR Administration Chlordiazepoxide HCl 5 mg 03/12/17 10:44 03/13/17 11:44 Librium - PO 5 mg BID JUNIOR Administration Folic Acid 1 mg 03/10/17 10:00 03/13/17 11:43 Folic Acid - PO 1 mg DAILY JUNIOR Administration Gabapentin 300 mg 03/10/17 06:00 03/13/17 15:06 Neurontin - PO 300 mg TID JUNIOR Administration Heparin Sodium (Porcine) 5,000 unit 03/10/17 06:00 03/13/17 15:05 Heparin - SQ 5,000 unit TID JUNIOR Administration Ibuprofen 400 mg 03/11/17 20:55 03/11/17 21:00 Motrin - PO 400 mg Q6H PRN Administration PAIN Metoprolol Tartrate 25 mg 03/10/17 10:00 03/13/17 11:43 Lopressor - PO 25 mg BID JUNIOR Administration Multi-Ingredient Lotion 1 applic 03/09/17 15:03 Eucerin (Large Jar) - TP DAILY PRN DRY SKIN Multi-Ingredient Ointment 1 applic 03/07/17 22:00 03/13/17 12:00 Zinc Oxide TP Not Given BID [facility] Multivitamins/Minerals/Vitamin C 1 tab 03/10/17 10:00 03/13/17 11:43 Tab-A-Vit - PO 1 tab DAILY JUNIOR Administration Quetiapine Fumarate 25 mg 03/10/17 22:00 03/13/17 00:04 Seroquel - PO 25 mg HS JUNIOR Administration Sertraline HCl 50 mg 03/10/17 10:00 03/13/17 11:43 Zoloft - PO 50 mg DAILY JUNIOR Administration Sodium Chloride 2 spray 03/09/17 23:11 [place] Nasal [place] - NS BID PRN NASAL CONGESTION Home Medications Medication Instructions Recorded Amlodipine Besylate 10 mg PO DAILY 12/23/16 Atorvastatin Ca [Lipitor] 10 mg PO HS 12/23/16 Gabapentin 800 mg PO TID 12/23/16 Quetiapine Fumarate "Xr" [Seroquel 300 mg PO ACDIN 12/23/16 Xr -] Sertraline HCl [Zoloft] 100 mg PO BID 12/23/16 Folic Acid 1 mg PO DAILY 01/02/17 Allopurinol [Zyloprim -] 100 mg PO DAILY 02/12/17 Aspirin [ASA -] 81 mg PO DAILY 02/12/17 ASSESSMENT AND PLAN: Physical Exam: NAD,awake , smiling . neck with trach , no drainage or secretions . minimal erythema and edema CV: RRR Lungs:positive for Rhonchi BL Ext: a clean dry wounds on bilateral anterior thighs Moves all his extremities to commands. 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 #Agitation/Acute delirium : resolving ; with possible alcohol/benzo withdrawal . on librium taper now 5mg BID # Nutrition: cont soft diet # HTN -cont norvasc and Metoprolol. # CAD: aspirin # Nicotine dependence . nicotine patch was not recommended by surgical team DVT px with heparin Cont PT
--- NOTE | 2017-03-13 18:13 | PN ---
Physical Exam: SUBJECTIVE: Patient seen and examined. OBJECTIVE: Vital Signs Period Temp Pulse Resp BP Sys/Clay Pulse Ox Last 24 Hr 97.9 F-99.3 F 72-91 20-20 119-148/77-93 98-100 GENERAL: Alert, NAD. NECK: Minimal erythema and edema around tracheostome. Incision C/D/I. Left ANNA removed. LUNGS: Breath sounds equal, clear to auscultation bilaterally, no accessory muscle use. HEART: Regular rate and rhythm, S1, S2 without murmur, rub or gallop. ABDOMEN: Soft, nontender, nondistended, (+) bowel sounds x 4. Incision C/D/I, demond removed. G-tube in place. EXTREMITIES: Warm, well-perfused, no edema. Clean, dry wounds to sheree anterior thighs. NEURO: Pt able to follow commands and move all 4 extremities. SKIN: Warm, dry, normal turgor, no rashes or lesions noted Active Medications Generic Name Dose Route Start Last Admin Trade Name Freq PRN Reason Stop Dose Admin Acetylcysteine 600 mg 03/10/17 06:00 03/13/17 14:51 Mucomyst 20 Oral / Inh Use Only* NEB 600 mg TIDR JUNIOR Administration Albuterol Sulfate 1 amp 03/05/17 19:48 03/12/17 17:10 Ventolin 0.5% - NEB 1 amp Q4H PRN Administration SHORT OF BREATH/WHEEZING Albuterol Sulfate 1 amp 03/08/17 14:34 03/13/17 14:52 Ventolin 0.083% Nebulizer Soln - NEB 1 amp Q6H PRN Administration WHEEZING Allopurinol 100 mg 03/10/17 12:05 03/13/17 11:43 Zyloprim - PO 100 mg DAILY JUNIOR Administration Amlodipine Besylate 10 mg 03/10/17 12:05 03/13/17 11:43 Norvasc - PO 10 mg DAILY JUNIOR Administration Aspirin 81 mg 03/10/17 12:05 03/13/17 11:42 Asa - PO 81 mg DAILY JUNIOR Administration Bacitracin 1 applic 03/10/17 10:00 03/13/17 12:00 Bacitracin - TP 1 applic BID JUNIOR Administration Chlordiazepoxide HCl 5 mg 03/12/17 10:44 03/13/17 11:44 Librium - PO 5 mg BID JUNIOR Administration Folic Acid 1 mg 03/10/17 10:00 03/13/17 11:43 Folic Acid - PO 1 mg DAILY JUNIOR Administration Gabapentin 300 mg 03/10/17 06:00 03/13/17 15:06 Neurontin - PO 300 mg TID JUNIOR Administration Heparin Sodium (Porcine) 5,000 unit 03/10/17 06:00 03/13/17 15:05 Heparin - SQ 5,000 unit TID JUNIOR Administration Ibuprofen 400 mg 03/11/17 20:55 03/11/17 21:00 Motrin - PO 400 mg Q6H PRN Administration PAIN Metoprolol Tartrate 25 mg 03/10/17 10:00 03/13/17 11:43 Lopressor - PO 25 mg BID JUNIOR Administration Multi-Ingredient Lotion 1 applic 03/09/17 15:03 Eucerin (Large Jar) - TP DAILY PRN DRY SKIN Multi-Ingredient Ointment 1 applic 03/07/17 22:00 03/12/17 21:39 Zinc Oxide TP 1 applic BID JUNIOR Administration Multivitamins/Minerals/Vitamin C 1 tab 03/10/17 10:00 03/13/17 11:43 Tab-A-Vit - PO 1 tab DAILY JUNIOR Administration Quetiapine Fumarate 25 mg 03/10/17 22:00 03/13/17 00:04 Seroquel - PO 25 mg HS JUNIOR Administration Sertraline HCl 50 mg 03/10/17 10:00 03/13/17 11:43 Zoloft - PO 50 mg DAILY JUNIOR Administration Sodium Chloride 2 spray 03/09/17 23:11 [place] Nasal [place] - NS BID PRN NASAL CONGESTION ASSESSMENT/PLAN: 56yo M with PMH of nicotine dependence, Right lung CA, CAD with 2 stents, htn, hld, gout, presented with worsening cough and sputum production and admitted to med-surg for lung resection, 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 # acute hypoxic respiratory failure - resolved - trach spontaneously came out yesterday, re-placed by Anesthesia, in place today - continue mucomyst with albuterol nebs # Laryngeal squamous cell Ca s/p laryngectomy with left anterolateral thigh flap pharyngeal reconstruction on 02/20/17 - POD 21 - Motrin q6hr prn for pain - continue Neurontin TID - post-op care per surgery - incentive spirometry - suction q3-4hrs - O2 prn # agitation - mental status much improved - continue 1:1 and restraints - Librium taper, decreased to 5mg BID yesterday # htn - continue Norvasc and Lopressor # CAD s/p 2 stents - continue ASA # gout - continue Allopurinol # 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 Gilmore as outpatient # FEN - Fluids: encourage po - Electolytes: wnl, continue to monitor. - Nutrition: clear liquids, Calorie Count suspended until diet upgraded # Prophylaxis - DVT ppx with Heparin 5,000U SQ TID - deconditioning ppx with PT Visit type - Emergency Visit Emergency Visit: Yes ED Registration Date: 02/11/17 Care time: The patient presented to the Emergency Department on the above date and was hospitalized for further evaluation of their emergent condition. - New Patient This patient is new to me today: No - Critical Care Critical Care patient: No
--- NOTE | 2017-03-13 19:27 | PN ---
Progress Note (short form) - Note Progress Note: Patient seen and examined Denies any complaints Last Vital Signs Temp Pulse Resp BP Pulse Ox 98.9 F 76 20 131/79 100 03/13/17 11:33 03/13/17 11:33 03/13/17 11:33 03/13/17 11:33 03/13/17 11:13 Cor: RSR, No murmurs, No gallops Lungs: Clear to P&A Abd: Soft, Normal bowel sounds, No organomegaly Ext:No significant edema Skin: No rashes, Integument intact Active Medications Acetylcysteine (Mucomyst 20 Oral / Inh Use Only*) 600 mg NEB TIDR [facility] Last Admin: 03/13/17 14:51 Dose: 600 mg Albuterol Sulfate (Ventolin 0.5% -) 1 amp NEB Q4H PRN PRN Reason: SHORT OF BREATH/WHEEZING Last Admin: 03/12/17 17:10 Dose: 1 amp Albuterol Sulfate (Ventolin 0.083% Nebulizer Soln -) 1 amp NEB Q6H PRN PRN Reason: WHEEZING Last Admin: 03/13/17 14:52 Dose: 1 amp Allopurinol (Zyloprim -) 100 mg PO DAILY [facility] Last Admin: 03/13/17 11:43 Dose: 100 mg Amlodipine Besylate (Norvasc -) 10 mg PO DAILY [facility] Last Admin: 03/13/17 11:43 Dose: 10 mg Aspirin (Asa -) 81 mg PO DAILY [facility] Last Admin: 03/13/17 11:42 Dose: 81 mg Bacitracin (Bacitracin -) 1 applic TP BID [facility] Last Admin: 03/13/17 12:00 Dose: 1 applic Chlordiazepoxide HCl (Librium -) 5 mg PO BID [facility] Last Admin: 03/13/17 11:44 Dose: 5 mg Folic Acid (Folic Acid -) 1 mg PO DAILY [facility] Last Admin: 03/13/17 11:43 Dose: 1 mg Gabapentin (Neurontin -) 300 mg PO TID [facility] Last Admin: 03/13/17 15:06 Dose: 300 mg Heparin Sodium (Porcine) (Heparin -) 5,000 unit SQ TID [facility] Last Admin: 03/13/17 15:05 Dose: 5,000 unit Ibuprofen (Motrin -) 400 mg PO Q6H PRN PRN Reason: PAIN Last Admin: 03/11/17 21:00 Dose: 400 mg Metoprolol Tartrate (Lopressor -) 25 mg PO BID [facility] Last Admin: 03/13/17 11:43 Dose: 25 mg Multi-Ingredient Lotion (Eucerin (Large Jar) -) 1 applic TP DAILY PRN PRN Reason: DRY SKIN Multi-Ingredient Ointment (Zinc Oxide) 1 applic TP BID [facility] Last Admin: 03/13/17 12:00 Dose: Not Given Multivitamins/Minerals/Vitamin C (Tab-A-Vit -) 1 tab PO DAILY [facility] Last Admin: 03/13/17 11:43 Dose: 1 tab Quetiapine Fumarate (Seroquel -) 25 mg PO HS [facility] Last Admin: 03/13/17 00:04 Dose: 25 mg Sertraline HCl (Zoloft -) 50 mg PO DAILY [facility] Last Admin: 03/13/17 11:43 Dose: 50 mg Sodium Chloride ([place] Nasal [place] -) 2 spray NS BID PRN PRN Reason: NASAL CONGESTION A/P 56 y/o patient with Newly diagnosed RUL adenocarcinoma [place] of lung- s/p wedge resection SCC of larynx- s/p laryngectomy with flap re-construction 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 willneed to evaluate candidacy for chemo/RT based on recovery/wound healing
[2017-03-13] MEDS: IBUPROFEN 400 MG TABLET (FP) PO PRN (22:44)
--- NOTE | 2017-03-14 02:07 | HOSP ---
Subjective - Review of Symptoms Events since last encounter: Paged with report of patient removing newly placed G-tube. Pt seen and examined. Per 1-to-1, pt was briefly complaining of ?chest pain/SOB and began pulling at his lines. Pt removed G-tube fully from ostomy site. On examination, ostomy site with minimal drainage/bleeding. Exposed site was initially covered with sterile gauze. GI team informed, instructed covering team to remove gauze and place rader in tract to maintain patency. Rader was placed in tract at bedside by me wth minimal effort, 1cc gastric content excursion noted upon repositioning. [place]ader balloon inflated, secured in place and bandage for further revision by GI team in AM. Physical Examination Vital Signs: Vital Signs Temperature 98.1 F 03/13/17 22:00 Pulse Rate 85 03/13/17 22:00 Respiratory Rate 20 03/13/17 22:00 Blood Pressure 132/83 03/13/17 22:00 O2 Sat by Pulse Oximetry (%) 100 03/13/17 11:13 Labs: CBC, BMP 03/11/17 07:30 03/10/17 06:50 Visit type - Emergency Visit Emergency Visit: No - New Patient This patient is new to me today: Yes Date on this admission: 03/14/17 - Critical Care Critical Care patient: No
[2017-03-14] MEDS: HEPARIN NA (PORCINE) 5,000 UNITS/ML 1ML VIAL SQ SCH ×3 (06:34→21:54)
[2017-03-14] MEDS: ALBUTEROL SO4 0.083% IH SOL 2.5 MG/3 ML VIAL.NEB. NEB PRN ×2 (06:35→22:12)
[2017-03-14] MEDS: ACETYLCYSTEINE 20% 200MG/ML 4 ML VIAL *FOR ORAL / INH USE ONLY NEB SCH ×3 (06:35→22:12)
[2017-03-14] MEDS: GABAPENTIN 300 MG CAPSULE (FP) PO SCH ×3 (06:35→21:54)
[2017-03-14] MEDS: IBUPROFEN 400 MG TABLET (FP) PO PRN (09:35)
--- NOTE | 2017-03-14 09:36 | PN ---
Progress Note (short form) - Note Progress Note: Patient is agitated, tried to kick me with his leg, since wants to go home. Vital Signs Temperature 98.3 F 03/14/17 06:00 Pulse Rate 84 03/14/17 06:00 Respiratory Rate 20 03/14/17 06:00 Blood Pressure 121/76 03/14/17 06:00 O2 Sat by Pulse Oximetry (%) 100 03/13/17 11:13 GENERAL: Alert, agitated today . NECK: Minimal erythema and edema around tracheostomy. Incision site is clean LUNGS: Breath sounds equal, clear to auscultation bilaterally, no accessory muscle use. HEART: Regular rate and rhythm, S1, S2 without murmur, no rub or gallop. ABDOMEN: Soft, nontender, nondistended, bowel sounds positive . G-tube in place. EXTREMITIES: Warm, well-perfused, no edema. Clean, dry wounds to bl anterior thighs. NEURO: Pt able to follow commands and move all 4 extremities. SKIN: Warm, dry, normal turgor, no rashes or lesions noted CBCD WBC 9.8 K/mm3 (4.0-10.0) 03/11/17 07:30 RBC 3.48 M/mm3 (4.00-5.60) L 03/11/17 07:30 Hgb 10.7 GM/dL (11.7-16.9) L 03/11/17 07:30 Hct 32.6 % (35.4-49) L 03/11/17 07:30 MCV 93.6 fl (80-96) 03/11/17 07:30 MCHC 32.8 g/dl (32.0-35.9) 03/11/17 07:30 RDW 13.9 % (11.9-15.9) 03/11/17 07:30 Plt Count 313 K/MM3 (134-434) 03/11/17 07:30 MPV 9.7 fl (7.5-11.1) 03/11/17 07:30 CMP Sodium 141 mmol/L (136-145) 03/10/17 06:50 Potassium 4.1 mmol/L (3.5-5.1) 03/10/17 06:50 Chloride 107 mmol/L (98-107) 03/10/17 06:50 Carbon Dioxide 27 mmol/L (21-32) 03/10/17 06:50 Anion Gap 7 (8-16) L 03/10/17 06:50 BUN 7 mg/dL (7-18) D 03/10/17 06:50 Creatinine 0.9 mg/dL (0.7-1.3) 03/10/17 06:50 Creat Clearance w eGFR > 60 (>60) 03/10/17 06:50 Random Glucose 95 mg/dL (74-106) 03/10/17 06:50 Calcium 9.0 mg/dL (8.5-10.1) 03/10/17 06:50 Total Bilirubin 0.5 mg/dL (0.2-1.0) D 03/10/17 06:50 AST 23 U/L (15-37) 03/10/17 06:50 ALT 29 U/L (12-78) 03/10/17 06:50 Alkaline Phosphatase 96 U/L (45-117) 03/10/17 06:50 Total Protein 7.0 g/dl (6.4-8.2) 03/10/17 06:50 Albumin 2.7 g/dl (3.4-5.0) L D 03/10/17 06:50 CARDIAC ENZYMES Creatine Kinase 71 IU/L (39-308) 02/11/17 10:24 Troponin I < 0.02 ng/ml (0.00-0.05) 02/11/17 10:24 Home Medication List Medication Instructions Recorded Confirmed Type Amlodipine Besylate 10 mg PO DAILY 12/23/16 02/11/17 History Atorvastatin Ca [Lipitor] 10 mg PO HS 12/23/16 02/11/17 History Gabapentin 800 mg PO TID 12/23/16 02/12/17 History Quetiapine Fumarate "Xr" [Seroquel 300 mg PO ACDIN 12/23/16 02/11/17 History Xr -] Sertraline HCl [Zoloft] 100 mg PO BID 12/23/16 02/12/17 History Folic Acid 1 mg PO DAILY 01/02/17 02/11/17 History Allopurinol [Zyloprim -] 100 mg PO DAILY 02/12/17 02/12/17 History Aspirin [ASA -] 81 mg PO DAILY 10/26/17 10/26/17 History Active Medications Generic Name Dose Route Start Last Admin Trade Name Freq PRN Reason Stop Dose Admin Acetylcysteine 600 mg 03/10/17 06:00 03/14/17 06:35 Mucomyst 20 Oral / Inh Use Only* NEB 600 mg TIDR JUNIOR Administration Albuterol Sulfate 1 amp 03/05/17 19:48 03/12/17 17:10 Ventolin 0.5% - NEB 1 amp Q4H PRN Administration SHORT OF BREATH/WHEEZING Albuterol Sulfate 1 amp 03/08/17 14:34 03/14/17 06:35 Ventolin 0.083% Nebulizer Soln - NEB 1 amp Q6H PRN Administration WHEEZING Allopurinol 100 mg 03/10/17 12:05 03/13/17 11:43 Zyloprim - PO 100 mg DAILY JUNIOR Administration Amlodipine Besylate 10 mg 03/10/17 12:05 03/13/17 11:43 Norvasc - PO 10 mg DAILY JUNIOR Administration Aspirin 81 mg 03/10/17 12:05 03/13/17 11:42 Asa - PO 81 mg DAILY JUNIOR Administration Bacitracin 1 applic 03/10/17 10:00 03/13/17 22:50 Bacitracin - TP 1 applic BID JUNIOR Administration Chlordiazepoxide HCl 5 mg 03/12/17 10:44 03/13/17 22:43 Librium - PO 5 mg BID JUNIOR Administration Folic Acid 1 mg 03/10/17 10:00 03/13/17 11:43 Folic Acid - PO 1 mg DAILY JUNIOR Administration Gabapentin 300 mg 03/10/17 06:00 03/14/17 06:35 Neurontin - PO 300 mg TID JUNIOR Administration Heparin Sodium (Porcine) 5,000 unit 03/10/17 06:00 03/14/17 06:34 Heparin - SQ 5,000 unit TID JUNIOR Administration Ibuprofen 400 mg 03/11/17 20:55 03/14/17 09:35 Motrin - PO 400 mg Q6H PRN Administration PAIN Metoprolol Tartrate 25 mg 03/10/17 10:00 03/13/17 22:43 Lopressor - PO 25 mg BID JUNIOR Administration Multi-Ingredient Lotion 1 applic 03/09/17 15:03 Eucerin (Large Jar) - TP DAILY PRN DRY SKIN Multi-Ingredient Ointment 1 applic 03/07/17 22:00 03/13/17 22:50 Zinc Oxide TP 1 applic BID JUNIOR Administration Multivitamins/Minerals/Vitamin C 1 tab 03/10/17 10:00 03/13/17 11:43 Tab-A-Vit - PO 1 tab DAILY JUNIOR Administration Quetiapine Fumarate 25 mg 03/10/17 22:00 03/13/17 22:43 Seroquel - PO 25 mg HS JUNIOR Administration Sertraline HCl 50 mg 03/10/17 10:00 03/13/17 11:43 Zoloft - PO 50 mg DAILY JUNIOR Administration Sodium Chloride 2 spray 03/09/17 23:11 [place] Nasal [place] - NS BID PRN NASAL CONGESTION ASSESSMENT AND PLAN: 56 y/o gentleman with h/o Nicotine dependence, HTN, CAD s/p Stenting , hyperlipidemia and recently diagnosed R lung adenocarcinoma who presented for pulmonary resection,and also was 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 # Acute hypoxic resp failure,resolved.s/p intubation and extubation s/p tracheostomy continue mucomyst Nebs with albuterol and suction a needed. # Laryngeal SCC s/p larynegectomy, with flap reconstruction: will need Radiation 4-6 weeks post surgery as an outpatient , on NSAIDs for pain and inflammation. Cont Neurontin . #Agitation/Acute delirium : agitated today will increase his Librium 5mg every 6 hrs. # Nutrition:cont soft diet # HTN -cont norvasc and Metoprolol. # CAD: aspirin # Nicotine dependence . nicotine patch was not recommended by surgical team DVT px with heparin Visit type - Emergency Visit Emergency Visit: Yes ED Registration Date: 02/11/17 Care time: The patient presented to the Emergency Department on the above date and was hospitalized for further evaluation of their emergent condition. - New Patient This patient is new to me today: No - Critical Care Critical Care patient: No
[2017-03-14] MEDS ORDERED: PT OWN MED DRAWER 7, Y5N ONE ×2 (10:11→21:32)
[2017-03-14] MEDS: MULTIVITAMINS (DAILY MVI) TABLET (FP) PO SCH (10:27)
[2017-03-14] MEDS: ASPIRIN 81 MG CHEWABLE TABLETS PO SCH (10:27)
[2017-03-14] MEDS: METOPROLOL TARTRATE 25 MG TABLET (FP) PO SCH ×2 (10:27→21:54)
[2017-03-14] MEDS: amLODIPine BESYLATE 10 MG TABLET (FP) PO SCH (10:27)
[2017-03-14] MEDS: ALLOPURINOL 100 MG TABLET (FP) PO SCH (10:27)
[2017-03-14] MEDS: FOLIC ACID 1 MG TABLET (FP) PO SCH (10:27)
[2017-03-14] MEDS: SERTRALINE HCL 50 MG TABLET (FP) PO SCH (10:27)
[2017-03-14] MEDS: chlordiazePOXIDE 5 MG CAPSULE PO SCH ×4 (10:28→23:16)
[2017-03-14] MEDS: BACITRACIN 15 GM TUBE TOPICAL OINTMENT TP SCH ×2 (10:28→21:55)
[2017-03-14] MEDS: ZINC OXIDE 20% TOPICAL OINTMENT 30 GM TUBE TP SCH ×2 (10:29→21:54)
--- NOTE | 2017-03-14 12:33 | PN ---
Progress Note (short form) - Note Progress Note: Events overnight noted. Pulled out GT. Some congested cough. NAD on T collar. Intake & Output 03/11/17 03/12/17 03/13/17 03/14/17 23:59 23:59 23:59 23:59 Intake Total 820 520 0 Output Total 220 250 300 Balance 600 520 -250 -300 Last Vital Signs Temp Pulse Resp BP Pulse Ox 98.4 F 72 20 124/71 100 03/14/17 10:25 03/14/17 10:25 03/14/17 10:25 03/14/17 10:25 03/13/17 11:13 Active Medications Acetylcysteine (Mucomyst 20 Oral / Inh Use Only*) 600 mg NEB TIDR [facility] [place] Last Admin: 03/14/17 06:35 Dose: 600 mg Albuterol Sulfate (Ventolin 0.5% -) 1 amp NEB Q4H PRN PRN Reason: SHORT OF BREATH/WHEEZING Last Admin: 03/12/17 17:10 Dose: 1 amp Albuterol Sulfate (Ventolin 0.083% Nebulizer Soln -) 1 amp NEB Q6H PRN PRN Reason: WHEEZING Last Admin: 03/14/17 06:35 Dose: 1 amp Allopurinol (Zyloprim -) 100 mg PO DAILY [facility] [place] Last Admin: 03/14/17 10:27 Dose: 100 mg Amlodipine Besylate (Norvasc -) 10 mg PO DAILY [facility] [place] Last Admin: 03/14/17 10:27 Dose: 10 mg Aspirin (Asa -) 81 mg PO DAILY [facility] [place] Last Admin: 03/14/17 10:27 Dose: 81 mg Bacitracin (Bacitracin -) 1 applic TP BID [facility] [place] Last Admin: 03/14/17 10:28 Dose: 1 applic Chlordiazepoxide HCl (Librium -) 5 mg PO BID [facility] [place] Last Admin: 03/14/17 10:28 Dose: 5 mg Folic Acid (Folic Acid -) 1 mg PO DAILY [facility] [place] Last Admin: 03/14/17 10:27 Dose: 1 mg Gabapentin (Neurontin -) 300 mg PO TID [facility] [place] Last Admin: 03/14/17 06:35 Dose: 300 mg Heparin Sodium (Porcine) (Heparin -) 5,000 unit SQ TID [facility] [place] Last Admin: 03/14/17 06:34 Dose: 5,000 unit Ibuprofen (Motrin -) 400 mg PO Q6H PRN PRN Reason: PAIN Last Admin: 03/14/17 09:35 Dose: 400 mg Metoprolol Tartrate (Lopressor -) 25 mg PO BID [facility] [place] Last Admin: 03/14/17 10:27 Dose: 25 mg Multi-Ingredient Lotion (Eucerin (Large Jar) -) 1 applic TP DAILY PRN PRN Reason: DRY SKIN Multi-Ingredient Ointment (Zinc Oxide) 1 applic TP BID [facility] [place] Last Admin: 03/14/17 10:29 Dose: 1 applic Multivitamins/Minerals/Vitamin C (Tab-A-Vit -) 1 tab PO DAILY [facility] [place] Last Admin: 03/14/17 10:27 Dose: 1 tab Quetiapine Fumarate (Seroquel -) 25 mg PO HS [facility] [place] Last Admin: 03/13/17 22:43 Dose: 25 mg Sertraline HCl (Zoloft -) 50 mg PO DAILY [facility] [place] Last Admin: 03/14/17 10:27 Dose: 50 mg Sodium Chloride ([place] Nasal [place] -) 2 spray NS BID PRN PRN Reason: NASAL CONGESTION Constitutional: Yes: Awake and responsive Eyes: Yes: WNL, Conjunctiva Clear, EOM Intact HENT: Yes: Trach intact Neck: Yes: Supple, Trachea Midline Cardiovascular: Yes: Regular Rate and Rhythm Respiratory: Yes: scattered rhonchi ...Inspection: Yes: WNL ...Clubbing: No Gastrointestinal: Yes: (+) NS, soft Renal/: Yes: WNL Musculoskeletal: Yes: WNL Extremities: Yes: WNL Edema: No Peripheral Pulses WNL: Yes Integumentary: Yes: WNL Neurological: Yes: WNL, Alert, Oriented ...Motor Strength: WNL Psychiatric: Yes: WNL, Alert, Oriented Labs: IMP: NSCLC - Adenocarcinoma s/p R VATS/Wedge Resection/CT placement now removed 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 HTN CAD Alcohol Abuse/Dependence Problem List - Problems (1) Alcohol dependence Code(s): F10.20 - ALCOHOL DEPENDENCE, UNCOMPLICATED Qualifiers: Substance use status: with intoxication Complication of substance- induced condition: with unspecified complication Qualified Code(s): F10.229 - Alcohol dependence with intoxication, unspecified; F10.229 - Alcohol dependence with intoxication, unspecified; F10.229 - Alcohol dependence with intoxication, unspecified (2) COPD (chronic obstructive pulmonary disease) Code(s): J44.9 - CHRONIC OBSTRUCTIVE PULMONARY DISEASE, UNSPECIFIED Qualifiers : COPD type: unspecified COPD Qualified Code(s): J44.9 - Chronic obstructive pulmonary disease, unspecified; J44.9 - Chronic obstructive pulmonary disease, unspecified; J44.9 - Chronic obstructive pulmonary disease, unspecified; J44.9 - Chronic obstructive pulmonary disease, unspecified (3) Cough Code(s): R05 - COUGH (4) Lung cancer Code(s): C34.90 - MALIGNANT NEOPLASM OF UNSP PART OF UNSP BRONCHUS OR LUNG Qualifiers: Laterality: unspecified laterality Lung location: overlapping sites Qualified Code(s): C34.80 - Malignant neoplasm of overlapping sites of unspecified bronchus and lung; C34.80 - Malignant neoplasm of overlapping sites of unspecified bronchus and lung; C34.80 - Malignant neoplasm of overlapping sites of unspecified bronchus and lung; C34.80 - Malignant neoplasm of overlapping sites of unspecified bronchus and lung (5) Nicotine dependence Code(s): F17.200 - NICOTINE DEPENDENCE, UNSPECIFIED, UNCOMPLICATED (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 Assessment/Plan Trach collar O2 Chest PT PT BD TX PRN Enteral feeds SQ Heparin Dr Esquivel Problem List - Problems (1) Alcohol dependence Code(s): F10.20 - ALCOHOL DEPENDENCE, UNCOMPLICATED Qualifiers: Substance use status: with intoxication Complication of substance-induced condition: with unspecified complication Qualified Code(s): F10.229 - Alcohol dependence with intoxication, unspecified (2) Cough Code(s): R05 - COUGH (3) Lung cancer Code(s): C34.90 - MALIGNANT NEOPLASM OF UNSP PART OF UNSP BRONCHUS OR LUNG Qualifiers: Laterality: unspecified laterality Lung location: overlapping sites Qualified Code(s): C34.80 - Malignant neoplasm of overlapping sites of unspecified bronchus and lung (4) COPD (chronic obstructive pulmonary disease) Code(s): J44.9 - CHRONIC OBSTRUCTIVE PULMONARY DISEASE, UNSPECIFIED Qualifiers: COPD type: unspecified COPD Qualified Code(s): J44.9 - Chronic obstructive pulmonary disease, unspecified (5) Nicotine dependence Code(s): F17.200 - NICOTINE DEPENDENCE, UNSPECIFIED, UNCOMPLICATED
--- NOTE | 2017-03-14 19:03 | PN ---
Progress Note (short form) - Note Progress Note: Events noted. Thank you for trach and g-tube reinsertion. Mental status seems to have improved significantly, much more oriented and cooperative. Has had vomiting, particularly when suctioning the tracheostome. Otherwise seems to be tolerating liquids PO. On examination well-appearing in no distress. Wounds CDI, trach tube in place , g-tube in place. Labs unremarkable. Continues to improve. Unclear source of vomiting. Continue clear liquids for now. Reconsult speech and swallow Thursday as he is much more alert and cooperative and they may be able to make more progress with him. PT should also work with him to get him walking and work on strength and endurance. Ideally would start RT and chemo soon, but will depend on compliance and ability to participate in daily treatments.
[2017-03-14] MEDS: QUEtiapine FUMARATE 25 MG TABLET (FP) PO SCH (21:54)
[2017-03-15] MEDS: HEPARIN NA (PORCINE) 5,000 UNITS/ML 1ML VIAL SQ SCH ×3 (05:51→22:53)
[2017-03-15] MEDS: GABAPENTIN 300 MG CAPSULE (FP) PO SCH ×3 (05:51→22:52)
[2017-03-15] MEDS: chlordiazePOXIDE 5 MG CAPSULE PO SCH ×4 (05:51→23:00)
[2017-03-15] MEDS: ALBUTEROL SO4 0.083% IH SOL 2.5 MG/3 ML VIAL.NEB. NEB PRN ×4 (06:39→22:00)
[2017-03-15] MEDS: ACETYLCYSTEINE 20% 200MG/ML 4 ML VIAL *FOR ORAL / INH USE ONLY NEB SCH ×3 (06:39→21:59)
--- NOTE | 2017-03-15 08:34 | PN ---
Teaching Attending Note Name of Resident: Gloria Zaldivar ATTENDING PHYSICIAN STATEMENT I saw and evaluated the patient. I reviewed the resident's note and discussed the case with the resident. I agree with the resident's findings and plan as documented. SUBJECTIVE: Patient is agitated. OBJECTIVE: Vital Signs Temperature 99.0 F 03/15/17 06:00 Pulse Rate 76 03/15/17 06:00 Respiratory Rate 20 03/15/17 06:00 Blood Pressure 111/67 03/15/17 06:00 O2 Sat by Pulse Oximetry (%) 98 03/15/17 03:17 CBCD WBC 9.8 K/mm3 (4.0-10.0) 03/11/17 07:30 RBC 3.48 M/mm3 (4.00-5.60) L 03/11/17 07:30 Hgb 10.7 GM/dL (11.7-16.9) L 03/11/17 07:30 Hct 32.6 % (35.4-49) L 03/11/17 07:30 MCV 93.6 fl (80-96) 03/11/17 07:30 MCHC 32.8 g/dl (32.0-35.9) 03/11/17 07:30 RDW 13.9 % (11.9-15.9) 03/11/17 07:30 Plt Count 313 K/MM3 (134-434) 03/11/17 07:30 MPV 9.7 fl (7.5-11.1) 03/11/17 07:30 CMP Sodium 141 mmol/L (136-145) 03/10/17 06:50 Potassium 4.1 mmol/L (3.5-5.1) 03/10/17 06:50 Chloride 107 mmol/L (98-107) 03/10/17 06:50 Carbon Dioxide 27 mmol/L (21-32) 03/10/17 06:50 Anion Gap 7 (8-16) L 03/10/17 06:50 BUN 7 mg/dL (7-18) D 03/10/17 06:50 Creatinine 0.9 mg/dL (0.7-1.3) 03/10/17 06:50 Creat Clearance w eGFR > 60 (>60) 03/10/17 06:50 Random Glucose 95 mg/dL (74-106) 03/10/17 06:50 Calcium 9.0 mg/dL (8.5-10.1) 03/10/17 06:50 Total Bilirubin 0.5 mg/dL (0.2-1.0) D 03/10/17 06:50 AST 23 U/L (15-37) 03/10/17 06:50 ALT 29 U/L (12-78) 03/10/17 06:50 Alkaline Phosphatase 96 U/L (45-117) 03/10/17 06:50 Total Protein 7.0 g/dl (6.4-8.2) 03/10/17 06:50 Albumin 2.7 g/dl (3.4-5.0) L D 03/10/17 06:50 CARDIAC ENZYMES Creatine Kinase 71 IU/L (39-308) 02/11/17 10:24 Troponin I < 0.02 ng/ml (0.00-0.05) 02/11/17 10:24 Current Medications Generic Name Dose Route Start Last Admin Trade Name Freq PRN Reason Stop Dose Admin Acetylcysteine 600 mg 03/10/17 06:00 03/15/17 06:39 Mucomyst 20 Oral / Inh Use Only* NEB 600 mg TIDR JUNIOR Administration Albuterol Sulfate 1 amp 03/05/17 19:48 03/12/17 17:10 Ventolin 0.5% - NEB 1 amp Q4H PRN Administration SHORT OF BREATH/WHEEZING Albuterol Sulfate 1 amp 03/08/17 14:34 03/15/17 06:39 Ventolin 0.083% Nebulizer Soln - NEB 1 amp Q6H PRN Administration WHEEZING Allopurinol 100 mg 03/10/17 12:05 03/14/17 10:27 Zyloprim - PO 100 mg DAILY JUNIOR Administration Amlodipine Besylate 10 mg 03/10/17 12:05 03/14/17 10:27 Norvasc - PO 10 mg DAILY JUNIOR Administration Aspirin 81 mg 03/10/17 12:05 03/14/17 10:27 Asa - PO 81 mg DAILY JUNIOR Administration Bacitracin 1 applic 03/10/17 10:00 03/14/17 21:55 Bacitracin - TP 1 applic BID JUNIOR Administration Chlordiazepoxide HCl 5 mg 03/14/17 15:30 03/15/17 05:51 Librium - PO 5 mg Q6HPO JUNIOR Administration Folic Acid 1 mg 03/10/17 10:00 03/14/17 10:27 Folic Acid - PO 1 mg DAILY JUNIOR Administration Gabapentin 300 mg 03/10/17 06:00 03/15/17 05:51 Neurontin - PO 300 mg TID JUNIOR Administration Heparin Sodium (Porcine) 5,000 unit 03/10/17 06:00 03/15/17 05:51 Heparin - SQ 5,000 unit TID JUNIOR Administration Ibuprofen 400 mg 03/11/17 20:55 03/14/17 09:35 Motrin - PO 400 mg Q6H PRN Administration PAIN Metoprolol Tartrate 25 mg 03/10/17 10:00 03/14/17 21:54 Lopressor - PO 25 mg BID JUNIOR Administration Multi-Ingredient Lotion 1 applic 03/09/17 15:03 Eucerin (Large Jar) - TP DAILY PRN DRY SKIN Multi-Ingredient Ointment 1 applic 03/07/17 22:00 03/14/17 21:54 Zinc Oxide TP 1 applic BID JUNIOR Administration Multivitamins/Minerals/Vitamin C 1 tab 03/10/17 10:00 03/14/17 10:27 Tab-A-Vit - PO 1 tab DAILY JUNIOR Administration Quetiapine Fumarate 25 mg 03/10/17 22:00 03/14/17 21:54 Seroquel - PO 25 mg HS JUNIOR Administration Sertraline HCl 50 mg 03/10/17 10:00 03/14/17 10:27 Zoloft - PO 50 mg DAILY JUNIOR Administration Sodium Chloride 2 spray 03/09/17 23:11 [place] Nasal [place] - NS BID PRN NASAL CONGESTION Home Medications Medication Instructions Recorded Amlodipine Besylate 10 mg PO DAILY 12/23/16 Atorvastatin Ca [Lipitor] 10 mg PO HS 12/23/16 Gabapentin 800 mg PO TID 12/23/16 Quetiapine Fumarate "Xr" [Seroquel 300 mg PO ACDIN 12/23/16 Xr -] Sertraline HCl [Zoloft] 100 mg PO BID 12/23/16 Folic Acid 1 mg PO DAILY 01/02/17 Allopurinol [Zyloprim -] 100 mg PO DAILY 02/12/17 Aspirin [ASA -] 81 mg PO DAILY 02/12/17 PE: per resident's note ASSESSMENT AND PLAN: 56 y/o gentleman with h/o Nicotine dependence, HTN, CAD s/p Stenting , hyperlipidemia and recently diagnosed R lung adenocarcinoma who presented for pulmonary resection,and also was found to have laryngeal SCC # Acute hypoxic resp failure,resolved.s/p intubation and extubation s/p tracheostomy continue mucomyst Nebs with albuterol and suction # Laryngeal SCC s/p larynegectomy, with flap reconstruction: will need Radiation 4-6 w after surgery as an outpatient , on NSAIDs for pain and inflammation - Cont Neurontin . #Agitation/Acute delirium : agitated today will increase his Librium to 10mg every 6 hrs as scheduled, do not reduce the dose since patient is AGITATED # Nutrition: cont soft diet # HTN -cont norvasc and Metoprolol. # CAD: aspirin # Nicotine dependence . nicotine patch was not recommended by surgical team DVT px with heparin Cont PT
[2017-03-15] MEDS: ALLOPURINOL 100 MG TABLET (FP) PO SCH (11:17)
[2017-03-15] MEDS: FOLIC ACID 1 MG TABLET (FP) PO SCH (11:18)
[2017-03-15] MEDS: ASPIRIN 81 MG CHEWABLE TABLETS PO SCH (11:18)
[2017-03-15] MEDS: SERTRALINE HCL 50 MG TABLET (FP) PO SCH (11:18)
[2017-03-15] MEDS: METOPROLOL TARTRATE 25 MG TABLET (FP) PO SCH ×2 (11:18→22:52)
[2017-03-15] MEDS: amLODIPine BESYLATE 10 MG TABLET (FP) PO SCH (11:19)
[2017-03-15] MEDS: MULTIVITAMINS (DAILY MVI) TABLET (FP) PO SCH (11:19)
[2017-03-15] MEDS: BACITRACIN 15 GM TUBE TOPICAL OINTMENT TP SCH ×2 (11:20→22:53)
[2017-03-15] MEDS: ZINC OXIDE 20% TOPICAL OINTMENT 30 GM TUBE TP SCH ×2 (11:20→22:53)
--- NOTE | 2017-03-15 12:08 | PN ---
Progress Note (short form) - Note Progress Note: Resting on Trach collar in NAD. Some congested cough. No acute events documented overnight. Intake & Output 03/12/17 03/13/17 03/14/17 03/15/17 23:59 23:59 23:59 23:59 Intake Total 520 0 1440 300 Output Total 250 700 Balance 520 -250 740 300 Last Vital Signs Temp Pulse Resp BP Pulse Ox 99.0 F 76 20 111/67 98 03/15/17 06:00 03/15/17 06:00 03/15/17 06:00 03/15/17 06:00 03/15/17 03:17 Active Medications Acetylcysteine (Mucomyst 20 Oral / Inh Use Only*) 600 mg NEB TIDR [facility] Last Admin: 03/15/17 06:39 Dose: 600 mg Albuterol Sulfate (Ventolin 0.5% -) 1 amp NEB Q4H PRN PRN Reason: SHORT OF BREATH/WHEEZING Last Admin: 03/12/17 17:10 Dose: 1 amp Albuterol Sulfate (Ventolin 0.083% Nebulizer Soln -) 1 amp NEB Q6H PRN PRN Reason: WHEEZING Last Admin: 03/15/17 11:11 Dose: 1 amp Allopurinol (Zyloprim -) 100 mg PO DAILY [facility] Last Admin: 03/15/17 11:17 Dose: 100 mg Amlodipine Besylate (Norvasc -) 10 mg PO DAILY [facility] Last Admin: 03/15/17 11:19 Dose: 10 mg Aspirin (Asa -) 81 mg PO DAILY [facility] Last Admin: 03/15/17 11:18 Dose: 81 mg Bacitracin (Bacitracin -) 1 applic TP BID [facility] Last Admin: 03/15/17 11:20 Dose: 1 applic Chlordiazepoxide HCl (Librium -) 5 mg PO Q6HPO [facility] Last Admin: 03/15/17 11:22 Dose: 5 mg Folic Acid (Folic Acid -) 1 mg PO DAILY [facility] Last Admin: 03/15/17 11:18 Dose: 1 mg Gabapentin (Neurontin -) 300 mg PO TID [facility] Last Admin: 03/15/17 05:51 Dose: 300 mg Heparin Sodium (Porcine) (Heparin -) 5,000 unit SQ TID [facility] Last Admin: 03/15/17 05:51 Dose: 5,000 unit Ibuprofen (Motrin -) 400 mg PO Q6H PRN PRN Reason: PAIN Last Admin: 03/14/17 09:35 Dose: 400 mg Metoprolol Tartrate (Lopressor -) 25 mg PO BID [facility] Last Admin: 03/15/17 11:18 Dose: 25 mg Multi-Ingredient Lotion (Eucerin (Large Jar) -) 1 applic TP DAILY PRN PRN Reason: DRY SKIN Multi-Ingredient Ointment (Zinc Oxide) 1 applic TP BID [facility] Last Admin: 03/15/17 11:20 Dose: 1 applic Multivitamins/Minerals/Vitamin C (Tab-A-Vit -) 1 tab PO DAILY [facility] Last Admin: 03/15/17 11:19 Dose: 1 tab Quetiapine Fumarate (Seroquel -) 25 mg PO HS [facility] Last Admin: 03/14/17 21:54 Dose: 25 mg Sertraline HCl (Zoloft -) 50 mg PO DAILY [facility] Last Admin: 03/15/17 11:18 Dose: 50 mg Sodium Chloride ([place] Nasal [place] -) 2 spray NS BID PRN PRN Reason: NASAL CONGESTION Constitutional: Yes: Awake and responsive Eyes: Yes: WNL, Conjunctiva Clear, EOM Intact HENT: Yes: Trach intact Neck: Yes: Supple, Trachea Midline Cardiovascular: Yes: Regular Rate and Rhythm Respiratory: Yes: scattered rhonchi ...Inspection: Yes: WNL ...Clubbing: No Gastrointestinal: Yes: (+) NS, soft Renal/: Yes: WNL Musculoskeletal: Yes: WNL Extremities: Yes: WNL Edema: No Peripheral Pulses WNL: Yes Integumentary: Yes: WNL Neurological: Yes: WNL, Alert, Oriented ...Motor Strength: WNL Psychiatric: Yes: WNL, Alert, Oriented Labs: IMP: NSCLC - Adenocarcinoma s/p R VATS/Wedge Resection/CT placement now removed 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 HTN CAD Alcohol Abuse/Dependence Problem List - Problems (1) Alcohol dependence Code(s): F10.20 - ALCOHOL DEPENDENCE, UNCOMPLICATED Qualifiers: Substance use status: with intoxication Complication of substance- induced condition: with unspecified complication Qualified Code(s): F10.229 - Alcohol dependence with intoxication, unspecified; F10.229 - Alcohol dependence with intoxication, unspecified; F10.229 - Alcohol dependence with intoxication, unspecified (2) COPD (chronic obstructive pulmonary disease) Code(s): J44.9 - CHRONIC OBSTRUCTIVE PULMONARY DISEASE, UNSPECIFIED Qualifiers : COPD type: unspecified COPD Qualified Code(s): J44.9 - Chronic obstructive pulmonary disease, unspecified; J44.9 - Chronic obstructive pulmonary disease, unspecified; J44.9 - Chronic obstructive pulmonary disease, unspecified; J44.9 - Chronic obstructive pulmonary disease, unspecified (3) Cough Code(s): R05 - COUGH (4) Lung cancer Code(s): C34.90 - MALIGNANT NEOPLASM OF UNSP PART OF UNSP BRONCHUS OR LUNG Qualifiers: Laterality: unspecified laterality Lung location: overlapping sites Qualified Code(s): C34.80 - Malignant neoplasm of overlapping sites of unspecified bronchus and lung; C34.80 - Malignant neoplasm of overlapping sites of unspecified bronchus and lung; C34.80 - Malignant neoplasm of overlapping sites of unspecified bronchus and lung; C34.80 - Malignant neoplasm of overlapping sites of unspecified bronchus and lung (5) Nicotine dependence Code(s): F17.200 - NICOTINE DEPENDENCE, UNSPECIFIED, UNCOMPLICATED (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 Assessment/Plan Trach collar O2 Chest PT PT BD TX PRN Enteral feeds SQ Heparin Dr Esquivel Problem List - Problems (1) Alcohol dependence Code(s): F10.20 - ALCOHOL DEPENDENCE, UNCOMPLICATED Qualifiers: Substance use status: with intoxication Complication of substance-induced condition: with unspecified complication Qualified Code(s): F10.229 - Alcohol dependence with intoxication, unspecified (2) Cough Code(s): R05 - COUGH (3) Lung cancer Code(s): C34.90 - MALIGNANT NEOPLASM OF UNSP PART OF UNSP BRONCHUS OR LUNG Qualifiers: Laterality: unspecified laterality Lung location: overlapping sites Qualified Code(s): C34.80 - Malignant neoplasm of overlapping sites of unspecified bronchus and lung (4) COPD (chronic obstructive pulmonary disease) Code(s): J44.9 - CHRONIC OBSTRUCTIVE PULMONARY DISEASE, UNSPECIFIED Qualifiers: COPD type: unspecified COPD Qualified Code(s): J44.9 - Chronic obstructive pulmonary disease, unspecified (5) Nicotine dependence Code(s): F17.200 - NICOTINE DEPENDENCE, UNSPECIFIED, UNCOMPLICATED
--- NOTE | 2017-03-15 12:36 | PN ---
Physical Exam: SUBJECTIVE: Patient seen and examined. Pt awake, alert, calm. Pt has periods of intermittent agitation. No fevers, chills. No events overnight. OBJECTIVE: Vital Signs Period Temp Pulse Resp BP Sys/Clay Pulse Ox Last 24 Hr 98 F-99.0 F 70-78 18-20 111-117/65-75 98-98 GENERAL: Alert, NAD. NECK: Incision C/D/I. Trach tube in place. LUNGS: Breath sounds equal, clear to anterior auscultation bilaterally, no accessory muscle use. HEART: Regular rate and rhythm, S1, S2 without murmur, rub or gallop. ABDOMEN: Soft, nontender, nondistended. G-tube in place. EXTREMITIES: Warm, well-perfused, no edema. Clean, dry wounds to sheree anterior thighs. NEURO: Pt able to follow commands and move all 4 extremities. SKIN: Warm, dry, normal turgor, no rashes or lesions noted Active Medications Generic Name Dose Route Start Last Admin Trade Name Freq PRN Reason Stop Dose Admin Acetylcysteine 600 mg 03/10/17 06:00 03/15/17 06:39 Mucomyst 20 Oral / Inh Use Only* NEB 600 mg TIDR JUNIOR Administration Albuterol Sulfate 1 amp 03/05/17 19:48 03/12/17 17:10 Ventolin 0.5% - NEB 1 amp Q4H PRN Administration SHORT OF BREATH/WHEEZING Albuterol Sulfate 1 amp 03/08/17 14:34 03/15/17 11:11 Ventolin 0.083% Nebulizer Soln - NEB 1 amp Q6H PRN Administration WHEEZING Allopurinol 100 mg 03/10/17 12:05 03/15/17 11:17 Zyloprim - PO 100 mg DAILY JUNIOR Administration Amlodipine Besylate 10 mg 03/10/17 12:05 03/15/17 11:19 Norvasc - PO 10 mg DAILY JUNIOR Administration Aspirin 81 mg 03/10/17 12:05 03/15/17 11:18 Asa - PO 81 mg DAILY JUNIOR Administration Bacitracin 1 applic 03/10/17 10:00 03/15/17 11:20 Bacitracin - TP 1 applic BID JUNIOR Administration Chlordiazepoxide HCl 5 mg 03/14/17 15:30 03/15/17 11:22 Librium - PO 5 mg Q6HPO JUNIOR Administration Folic Acid 1 mg 03/10/17 10:00 03/15/17 11:18 Folic Acid - PO 1 mg DAILY JUNIOR Administration Gabapentin 300 mg 03/10/17 06:00 03/15/17 05:51 Neurontin - PO 300 mg TID JUNIOR Administration Heparin Sodium (Porcine) 5,000 unit 03/10/17 06:00 03/15/17 05:51 Heparin - SQ 5,000 unit TID JUNIOR Administration Ibuprofen 400 mg 03/11/17 20:55 03/14/17 09:35 Motrin - PO 400 mg Q6H PRN Administration PAIN Metoprolol Tartrate 25 mg 03/10/17 10:00 03/15/17 11:18 Lopressor - PO 25 mg BID JUNIOR Administration Multi-Ingredient Lotion 1 applic 03/09/17 15:03 Eucerin (Large Jar) - TP DAILY PRN DRY SKIN Multi-Ingredient Ointment 1 applic 03/07/17 22:00 03/15/17 11:20 Zinc Oxide TP 1 applic BID JUNIOR Administration Multivitamins/Minerals/Vitamin C 1 tab 03/10/17 10:00 03/15/17 11:19 Tab-A-Vit - PO 1 tab DAILY JUNIOR Administration Quetiapine Fumarate 25 mg 03/10/17 22:00 03/14/17 21:54 Seroquel - PO 25 mg HS JUNIOR Administration Sertraline HCl 50 mg 03/10/17 10:00 03/15/17 11:18 Zoloft - PO 50 mg DAILY JUNIOR Administration Sodium Chloride 2 spray 03/09/17 23:11 [place] Nasal [place] - NS BID PRN NASAL CONGESTION IMAGIN03/14/17 Ab Xray -> functional g-tube with tip in upper gastric body. No sign of obstruction or leak. 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 # acute hypoxic respiratory failure - resolved - continue mucomyst with albuterol nebs # Laryngeal squamous cell Ca s/p laryngectomy with left anterolateral thigh flap pharyngeal reconstruction on 02/20/17 - POD 23 - Motrin q6hr prn for pain - continue Neurontin TID - post-op care per surgery - incentive spirometry - suction q3-4hrs - O2 prn # agitation - mental status much improved - continue 1:1 and restraints - Librium increased to q6hr # htn - continue Norvasc and Lopressor # CAD s/p 2 stents - continue ASA # gout - continue Allopurinol # 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 Gilmore as outpatient # FEN - Fluids: encourage po - Electolytes: wnl, continue to monitor. - Nutrition: clear liquids, pending Speech re-eval # Prophylaxis - DVT ppx with Heparin 5,000U SQ TID - deconditioning ppx with PT and Chest PT Visit type - Emergency Visit Emergency Visit: Yes ED Registration Date: 02/11/17 Care time: The patient presented to the Emergency Department on the above date and was hospitalized for further evaluation of their emergent condition. - New Patient This patient is new to me today: No - Critical Care Critical Care patient: No
--- NOTE | 2017-03-15 16:58 | PROC ---
Intubation - Intubation Reason for Intubation: Respiratory Insufficiency, Airway Protection Time of Intubation: 16:50 (Tracheostomy tube replacement) Tube Size (cm): 8.0 (COde called due to pateints' trachesotomy tube fell out. Pt being mask ventialted on arrival. 8.0 trachesotomy tube replaced through tracheosotoma without difficulty and cuff inflated. Patient adequately ventilated.)
--- NOTE | 2017-03-15 17:21 | RAPID ---
Physical Examination Findings/Remarks: Code99 called around 4:45pm, team responded immediately. VS: HR 80's, BP 142/87, O2 sat dropping to 70's%, RR 20. O2 sat maintained into the 80's% with bag mask. 56yo M with PMH of Right lung adenoCa and primary squamous cell Ca to larynx, POD 23 s/p laryngectomy with flap reconstruction. Pt's trach popped out. Pt's wrists in restraints and pt on 1:1 observation. Pt could not have pulled out his trach. Anesthesia paged Stat, arrived immediately, re-placed a Size 8 trach. Suction started. Pt vomited. Pt known to have a hx of vomiting with suction of trach. Vomit contents suctioned out of mouth. O2 sats improved to 97-100%. Librium increased to 10mg q6hr to mitigate any pt agitation that may have contributed to the trach becoming dislodged. Total critical time spent at bedside 35 minutes.
[2017-03-15] MEDS: QUEtiapine FUMARATE 25 MG TABLET (FP) PO SCH (22:52)
[2017-03-16] MEDS: ALBUTEROL SO4 0.083% IH SOL 2.5 MG/3 ML VIAL.NEB. NEB PRN ×3 (06:35→22:52)
[2017-03-16] MEDS: ACETYLCYSTEINE 20% 200MG/ML 4 ML VIAL *FOR ORAL / INH USE ONLY NEB SCH ×3 (06:35→22:51)
[2017-03-16] MEDS: GABAPENTIN 300 MG CAPSULE (FP) PO SCH ×3 (06:48→22:18)
[2017-03-16] MEDS: HEPARIN NA (PORCINE) 5,000 UNITS/ML 1ML VIAL SQ SCH ×3 (06:48→22:18)
[2017-03-16] MEDS: chlordiazePOXIDE 5 MG CAPSULE PO SCH ×4 (06:48→23:08)
[2017-03-16 08:18] LABS: MCH 30.9 pg (25.7-33.7); MCHC 33.7 g/dl (32.0-35.9); MEAN CELL VOLUME 91.7 fl (80-96); MEAN PLT VOLUME 10.1 fl (7.5-11.1); PLATELET COUNT 193 K/MM3 (134-434); RDW 13.6 % (11.9-15.9); WHITE BLOOD COUNT 8.4 K/mm3 (4.0-10.0)
[2017-03-16 08:37] LABS: ANION GAP 7 (8-16); CALCIUM 8.7 mg/dL (8.5-10.1); CO2 30 mmol/L (21-32); CREATININE 0.9 mg/dL (0.7-1.3); GLUCOSE,RANDOM 115 mg/dL (74-106); MAGNESIUM 1.7 mg/dL (1.8-2.4); PHOSPHOROUS 3.3 mg/dL (2.5-4.9)
[2017-03-16] MEDS ORDERED: PT OWN MED DRAWER 7, Y5N ONE ×4 (10:50→18:44)
[2017-03-16] MEDS: BACITRACIN 15 GM TUBE TOPICAL OINTMENT TP SCH ×2 (10:59→22:19)
[2017-03-16] MEDS: MULTIVITAMINS (DAILY MVI) TABLET (FP) PO SCH (10:59)
[2017-03-16] MEDS: SERTRALINE HCL 50 MG TABLET (FP) PO SCH (10:59)
[2017-03-16] MEDS: FOLIC ACID 1 MG TABLET (FP) PO SCH (10:59)
[2017-03-16] MEDS: ASPIRIN 81 MG CHEWABLE TABLETS PO SCH (10:59)
[2017-03-16] MEDS: amLODIPine BESYLATE 10 MG TABLET (FP) PO SCH (10:59)
[2017-03-16] MEDS: ALLOPURINOL 100 MG TABLET (FP) PO SCH (10:59)
[2017-03-16] MEDS: THIAMINE HCL 100 MG TABLET (FP) PO SCH (10:59)
[2017-03-16] MEDS: METOPROLOL TARTRATE 25 MG TABLET (FP) PO SCH ×2 (10:59→22:18)
[2017-03-16] MEDS: ZINC OXIDE 20% TOPICAL OINTMENT 30 GM TUBE TP SCH ×2 (11:02→22:19)
--- NOTE | 2017-03-16 13:01 | PN ---
Progress Note, Physician History of Present Illness: pulmonary awake,+congestion,-resp distress - Current Medication List Current Medications: Active Medications Acetylcysteine (Mucomyst 20 Oral / Inh Use Only*) 600 mg NEB TIDR [facility] Last Admin: 03/16/17 06:35 Dose: 600 mg Albuterol Sulfate (Ventolin 0.5% -) 1 amp NEB Q4H PRN PRN Reason: SHORT OF BREATH/WHEEZING Last Admin: 03/12/17 17:10 Dose: 1 amp Albuterol Sulfate (Ventolin 0.083% Nebulizer Soln -) 1 amp NEB Q6H PRN PRN Reason: WHEEZING Last Admin: 03/16/17 06:35 Dose: 1 amp Allopurinol (Zyloprim -) 100 mg PO DAILY [facility] Last Admin: 03/16/17 10:59 Dose: 100 mg Amlodipine Besylate (Norvasc -) 10 mg PO DAILY [facility] Last Admin: 03/16/17 10:59 Dose: 10 mg Aspirin (Asa -) 81 mg PO DAILY [facility] Last Admin: 03/16/17 10:59 Dose: 81 mg Bacitracin (Bacitracin -) 1 applic TP BID [facility] Last Admin: 03/16/17 10:59 Dose: 1 applic Chlordiazepoxide HCl (Librium -) 10 mg PO Q6HPO [facility] Last Admin: 03/16/17 12:39 Dose: 10 mg Folic Acid (Folic Acid -) 1 mg PO DAILY [facility] Last Admin: 03/16/17 10:59 Dose: 1 mg Gabapentin (Neurontin -) 300 mg PO TID [facility] Last Admin: 03/16/17 06:48 Dose: 300 mg Heparin Sodium (Porcine) (Heparin -) 5,000 unit SQ TID [facility] Last Admin: 03/16/17 06:48 Dose: 5,000 unit Ibuprofen (Motrin -) 400 mg PO Q6H PRN PRN Reason: PAIN Last Admin: 03/14/17 09:35 Dose: 400 mg Metoprolol Tartrate (Lopressor -) 25 mg PO BID [facility] Last Admin: 03/16/17 10:59 Dose: 25 mg Multi-Ingredient Lotion (Eucerin (Large Jar) -) 1 applic TP DAILY PRN PRN Reason: DRY SKIN Multi-Ingredient Ointment (Zinc Oxide) 1 applic TP BID [facility] Last Admin: 03/16/17 11:02 Dose: 1 applic Multivitamins/Minerals/Vitamin C (Tab-A-Vit -) 1 tab PO DAILY [facility] Last Admin: 03/16/17 10:59 Dose: 1 tab Quetiapine Fumarate (Seroquel -) 25 mg PO HS [facility] Last Admin: 03/15/17 22:52 Dose: 25 mg Sertraline HCl (Zoloft -) 50 mg PO DAILY [facility] Last Admin: 03/16/17 10:59 Dose: 50 mg Sodium Chloride ([place] -) 2 spray NS BID PRN PRN Reason: NASAL CONGESTION Thiamine HCl (Vitamin B1 -) 100 mg PO DAILY [facility] Last Admin: 03/16/17 10:59 Dose: 100 mg - Objective Vital Signs: Vital Signs Temperature 99.2 F 03/16/17 10:00 Pulse Rate 76 03/16/17 10:00 Respiratory Rate 20 03/16/17 10:00 Blood Pressure 140/84 03/16/17 10:00 O2 Sat by Pulse Oximetry (%) 96 03/16/17 08:47 Constitutional: Yes: Well Nourished, Calm Eyes: Yes: WNL HENT: Yes: WNL Neck: Yes: Supple (trach) Cardiovascular: Yes: Regular Rate and Rhythm, S1, S2 Respiratory: Yes: Rhonchi (scattered sheree rhonchi) Gastrointestinal: Yes: Normal Bowel Sounds, Soft Extremities: Yes: WNL Edema: No Labs: CBC, BMP 03/16/17 08:00 03/16/17 08:00 INR, PTT INR 0.98 (0.82-1.09) 02/16/17 05:35 Problem List - Problems (1) Alcohol dependence Code(s): F10.20 - ALCOHOL DEPENDENCE, UNCOMPLICATED Qualifiers: Substance use status: with intoxication Complication of substance-induced condition: with unspecified complication Qualified Code(s): F10.229 - Alcohol dependence with intoxication, unspecified (2) Alcohol intoxication Code(s): F10.929 - ALCOHOL USE, UNSPECIFIED WITH INTOXICATION, UNSPECIFIED Qualifiers: Complication of substance-induced condition: with unspecified complication Qualified Code(s): F10.929 - Alcohol use, unspecified with intoxication, unspecified (3) Cough Code(s): R05 - COUGH (5) Lung cancer Code(s): C34.90 - MALIGNANT NEOPLASM OF UNSP PART OF UNSP BRONCHUS OR LUNG Qualifiers: Laterality: unspecified laterality Lung location: overlapping sites Qualified Code(s): C34.80 - Malignant neoplasm of overlapping sites of unspecified bronchus and lung (6) Metastatic disease Code(s): C79.9 - SECONDARY MALIGNANT NEOPLASM OF UNSPECIFIED SITE (7) Nicotine dependence Code(s): F17.200 - NICOTINE DEPENDENCE, UNSPECIFIED, UNCOMPLICATED (8) Laryngeal squamous cell carcinoma Code(s): C32.9 - MALIGNANT NEOPLASM OF LARYNX, UNSPECIFIED Assessment/Plan ASSESSMENT AND PLAN: NSCLC - Adenocarcinoma s/p R VATS/Wedge Resection/CT placement now removed 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
--- NOTE | 2017-03-16 13:30 | PN ---
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 Today with 1:1 sitter, restless, agitated, confused. Poor candidate for teaching regarding laryngectomy and alaryngeal speech today. Pt on clear fluids. Can pt be upgraded? If still fluids, trial of Ensure? Use of GT?
--- NOTE | 2017-03-16 13:56 | PN ---
Progress Note (short form) - Note Progress Note: Now 3 weeks post pharyngeal reconstruction: Tolerating soft diet without any evidence of leak. He has nausea with suctioning, but not otherwise. No evidence of infection or fistula. ANNA's out. Donor site is healing well with small area of graft failure (5%) Continue bacitracin and xeroform daily dressings. Regular bathing however possible
[2017-03-16] MEDS ORDERED: MAGNESIUM OXIDE 400 MG TABLET (FP) PO ONE ×2 (15:10→17:30)
[2017-03-16] MEDS ORDERED: POTASSIUM CHLORIDE TABS 20 MEQ TABLET.ER (FP) PO ONE ×2 (15:13→17:30)
--- NOTE | 2017-03-16 15:17 | PN ---
Physical Exam: SUBJECTIVE: Patient seen and examined. Pt is able to write more legibly and use communication board. Pt also attempts to communicate by mouthing words. Pt denies pain. No fever, chills. No events overnight. OBJECTIVE: Vital Signs Period Temp Pulse Resp BP Sys/Clay Pulse Ox Last 24 Hr 97.1 F-99.2 F 65-78 20-22 139-141/68-84 96-99 GENERAL: Alert, NAD, in vest and mitten restraints. NECK: Incision C/D/I. Trach tube in place. LUNGS: Breath sounds equal, clear to anterior auscultation bilaterally, no accessory muscle use. HEART: Regular rate and rhythm, S1, S2 without murmur, rub or gallop. ABDOMEN: Soft, nontender, nondistended. G-tube in place. EXTREMITIES: Warm, well-perfused, no edema. Clean, dry wounds to sheree anterior thighs. SKIN: Warm, dry, normal turgor, no rashes or lesions noted Laboratory Results - last 24 hr 03/16/17 03/16/17 03/16/17 08:00 08:00 11:19 WBC 8.4 RBC 3.36 L Hgb 10.4 L Hct 30.8 L MCV 91.7 MCH 30.9 MCHC 33.7 RDW 13.6 Plt Count 193 D MPV 10.1 Manual Slide Review No Result Required. Sodium 139 Potassium 3.3 L Chloride 102 Carbon Dioxide 30 Anion Gap 7 L BUN 6 L Creatinine 0.9 POC Glucometer 115 Random Glucose 115 H D Calcium 8.7 Phosphorus 3.3 Magnesium 1.7 L Active Medications Generic Name Dose Route Start Last Admin Trade Name Freq PRN Reason Stop Dose Admin Acetylcysteine 600 mg 03/10/17 06:00 03/16/17 13:43 Mucomyst 20 Oral / Inh Use Only* NEB 600 mg TIDR JUNIOR Administration Albuterol Sulfate 1 amp 03/05/17 19:48 03/12/17 17:10 Ventolin 0.5% - NEB 1 amp Q4H PRN Administration SHORT OF BREATH/WHEEZING Albuterol Sulfate 1 amp 03/08/17 14:34 03/16/17 13:43 Ventolin 0.083% Nebulizer Soln - NEB 1 amp Q6H PRN Administration WHEEZING Allopurinol 100 mg 03/10/17 12:05 03/16/17 10:59 Zyloprim - PO 100 mg DAILY JUNIOR Administration Amlodipine Besylate 10 mg 03/10/17 12:05 03/16/17 10:59 Norvasc - PO 10 mg DAILY JUNIOR Administration Aspirin 81 mg 03/10/17 12:05 03/16/17 10:59 Asa - PO 81 mg DAILY JUNIOR Administration Bacitracin 1 applic 03/10/17 10:00 03/16/17 10:59 Bacitracin - TP 1 applic BID JUNIOR Administration Chlordiazepoxide HCl 10 mg 03/16/17 07:04 03/16/17 12:39 Librium - PO 10 mg Q6HPO JUNIOR Administration Folic Acid 1 mg 03/10/17 10:00 03/16/17 10:59 Folic Acid - PO 1 mg DAILY JUNIOR Administration Gabapentin 300 mg 03/10/17 06:00 03/16/17 06:48 Neurontin - PO 300 mg TID JUNIOR Administration Heparin Sodium (Porcine) 5,000 unit 03/10/17 06:00 03/16/17 06:48 Heparin - SQ 5,000 unit TID JUNIOR Administration Ibuprofen 400 mg 03/11/17 20:55 03/14/17 09:35 Motrin - PO 400 mg Q6H PRN Administration PAIN Metoprolol Tartrate 25 mg 03/10/17 10:00 03/16/17 10:59 Lopressor - PO 25 mg BID JUNIOR Administration Multi-Ingredient Lotion 1 applic 03/09/17 15:03 Eucerin (Large Jar) - TP DAILY PRN DRY SKIN Multi-Ingredient Ointment 1 applic 03/07/17 22:00 03/16/17 11:02 Zinc Oxide TP 1 applic BID JUNIOR Administration Multivitamins/Minerals/Vitamin C 1 tab 03/10/17 10:00 03/16/17 10:59 Tab-A-Vit - PO 1 tab DAILY JUNIOR Administration Quetiapine Fumarate 25 mg 03/10/17 22:00 03/15/17 22:52 Seroquel - PO 25 mg HS JUNIOR Administration Sertraline HCl 50 mg 03/10/17 10:00 03/16/17 10:59 Zoloft - PO 50 mg DAILY JUNIOR Administration Sodium Chloride 2 spray 03/09/17 23:11 [place] Nas[place] - NS BID PRN NASAL CONGESTION Thiamine HCl 100 mg 03/16/17 10:00 03/16/17 10:59 Vitamin B1 - PO 100 mg DAILY [facility] Administration ASSESSMENT/PLAN: 56yo M with PMH of nicotine dependence, Right lung CA, CAD with 2 stents, htn, hld, gout, presented with worsening cough and sputum production and admitted to med-surg for lung resection, 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 # acute hypoxic respiratory failure - resolved - continue mucomyst with albuterol nebs # Laryngeal squamous cell Ca s/p laryngectomy with left anterolateral thigh flap pharyngeal reconstruction on 02/20/17 - POD 24 - Motrin q6hr prn for pain - continue Neurontin TID - post-op care per surgery - incentive spirometry - suction q3-4hrs and prn - O2 prn # agitation - mental status much improved - continue 1:1 and restraints - Librium increased to 10mg q6hr - Melatonin 5mg HS prn added # htn - continue Norvasc and Lopressor # CAD s/p 2 stents - continue ASA # gout - continue Allopurinol # 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 Gilmore as outpatient # electrolyte abnormalities - hypokalemia repleted with K-dur 40meq once po - hypomagnesemia repleted with Mag-Ox 800mg once po # FEN - Fluids: encourage po - Electolytes: continue to monitor. - Nutrition: soft diet # Prophylaxis - DVT ppx with Heparin 5,000U SQ TID - deconditioning ppx with PT and Chest PT Visit type - Emergency Visit Emergency Visit: Yes ED Registration Date: 02/11/17 Care time: The patient presented to the Emergency Department on the above date and was hospitalized for further evaluation of their emergent condition. - New Patient This patient is new to me today: No - Critical Care Critical Care patient: No
--- NOTE | 2017-03-16 19:46 | PN ---
Teaching Attending Note Name of Resident: Gloria Zaldivar ATTENDING PHYSICIAN STATEMENT I saw and evaluated the patient. I reviewed the resident's note and discussed the case with the resident. I agree with the resident's findings and plan as documented. SUBJECTIVE: pATIENT IS CALMER TODAY , FEELING BETTER, WRITING BETTER. OBJECTIVE: Vital Signs Temperature 99.2 F 03/16/17 18:45 Pulse Rate 73 03/16/17 18:45 Respiratory Rate 17 03/16/17 18:45 Blood Pressure 128/80 03/16/17 18:45 O2 Sat by Pulse Oximetry (%) 96 03/16/17 08:47 CBCD WBC 8.4 K/mm3 (4.0-10.0) 03/16/17 08:00 RBC 3.36 M/mm3 (4.00-5.60) L 03/16/17 08:00 Hgb 10.4 GM/dL (11.7-16.9) L 03/16/17 08:00 Hct 30.8 % (35.4-49) L 03/16/17 08:00 MCV 91.7 fl (80-96) 03/16/17 08:00 MCHC 33.7 g/dl (32.0-35.9) 03/16/17 08:00 RDW 13.6 % (11.9-15.9) 03/16/17 08:00 Plt Count 193 K/MM3 (134-434) D 03/16/17 08:00 MPV 10.1 fl (7.5-11.1) 03/16/17 08:00 CMP Sodium 139 mmol/L (136-145) 03/16/17 08:00 Potassium 3.3 mmol/L (3.5-5.1) L 03/16/17 08:00 Chloride 102 mmol/L (98-107) 03/16/17 08:00 Carbon Dioxide 30 mmol/L (21-32) 03/16/17 08:00 Anion Gap 7 (8-16) L 03/16/17 08:00 BUN 6 mg/dL (7-18) L 03/16/17 08:00 Creatinine 0.9 mg/dL (0.7-1.3) 03/16/17 08:00 Creat Clearance w eGFR > 60 (>60) 03/10/17 06:50 Random Glucose 115 mg/dL (74-106) H D 03/16/17 08:00 Calcium 8.7 mg/dL (8.5-10.1) 03/16/17 08:00 Total Bilirubin 0.5 mg/dL (0.2-1.0) D 03/10/17 06:50 AST 23 U/L (15-37) 03/10/17 06:50 ALT 29 U/L (12-78) 03/10/17 06:50 Alkaline Phosphatase 96 U/L (45-117) 03/10/17 06:50 Total Protein 7.0 g/dl (6.4-8.2) 03/10/17 06:50 Albumin 2.7 g/dl (3.4-5.0) L D 03/10/17 06:50 CARDIAC ENZYMES Creatine Kinase 71 IU/L (39-308) 02/11/17 10:24 Troponin I < 0.02 ng/ml (0.00-0.05) 02/11/17 10:24 Current Medications Generic Name Dose Route Start Last Admin Trade Name Freq PRN Reason Stop Dose Admin Acetylcysteine 600 mg 03/10/17 06:00 03/16/17 13:43 Mucomyst 20 Oral / Inh Use Only* NEB 600 mg TIDR JUNIOR Administration Albuterol Sulfate 1 amp 03/05/17 19:48 03/12/17 17:10 Ventolin 0.5% - NEB 1 amp Q4H PRN Administration SHORT OF BREATH/WHEEZING Albuterol Sulfate 1 amp 03/08/17 14:34 03/16/17 13:43 Ventolin 0.083% Nebulizer Soln - NEB 1 amp Q6H PRN Administration WHEEZING Allopurinol 100 mg 03/10/17 12:05 03/16/17 10:59 Zyloprim - PO 100 mg DAILY JUNIOR Administration Amlodipine Besylate 10 mg 03/10/17 12:05 03/16/17 10:59 Norvasc - PO 10 mg DAILY JUNIOR Administration Aspirin 81 mg 03/10/17 12:05 03/16/17 10:59 Asa - PO 81 mg DAILY JUNIOR Administration Bacitracin 1 applic 03/10/17 10:00 03/16/17 10:59 Bacitracin - TP 1 applic BID JUNIOR Administration Chlordiazepoxide HCl 10 mg 03/16/17 07:04 03/16/17 18:57 Librium - PO 10 mg Q6HPO JUNIOR Administration Folic Acid 1 mg 03/10/17 10:00 03/16/17 10:59 Folic Acid - PO 1 mg DAILY JUNIOR Administration Gabapentin 300 mg 03/10/17 06:00 03/16/17 15:08 Neurontin - PO 300 mg TID JUNIOR Administration Heparin Sodium (Porcine) 5,000 unit 03/10/17 06:00 03/16/17 15:07 Heparin - SQ 5,000 unit TID JUNIOR Administration Ibuprofen 400 mg 03/11/17 20:55 03/14/17 09:35 Motrin - PO 400 mg Q6H PRN Administration PAIN Melatonin 5 mg 03/16/17 15:14 Melatonin PO HS PRN INSOMNIA Metoprolol Tartrate 25 mg 03/10/17 10:00 03/16/17 10:59 Lopressor - PO 25 mg BID JUNIOR Administration Multi-Ingredient Lotion 1 applic 03/09/17 15:03 Eucerin (Large Jar) - TP DAILY PRN DRY SKIN Multi-Ingredient Ointment 1 applic 03/07/17 22:00 03/16/17 11:02 Zinc Oxide TP 1 applic BID JUNIOR Administration Multivitamins/Minerals/Vitamin C 1 tab 03/10/17 10:00 03/16/17 10:59 Tab-A-Vit - PO 1 tab DAILY [facility]UNIOR Administration Quetiapine Fumarate 25 mg 03/10/17 22:00 03/15/17 22:52 Seroquel - PO 25 mg HS JUNIOR Administration Sertraline HCl 50 mg 03/10/17 10:00 03/16/17 10:59 Zoloft - PO 50 mg DAILY JUNIOR Administration Sodium Chloride 2 spray 03/09/17 23:11 [place] Nasal [place] - NS BID PRN NASAL CONGESTION Thiamine HCl 100 mg 03/16/17 10:00 03/16/17 10:59 Vitamin B1 - PO 100 mg DAILY JUNIOR Administration Home Medications Medication Instructions Recorded Amlodipine Besylate 10 mg PO DAILY 12/23/16 Atorvastatin Ca [Lipitor] 10 mg PO HS 12/23/16 Gabapentin 800 mg PO TID 12/23/16 Quetiapine Fumarate "Xr" [Seroquel 300 mg PO ACDIN 12/23/16 Xr -] Sertraline HCl [Zoloft] 100 mg PO BID 12/23/16 Folic Acid 1 mg PO DAILY 01/02/17 Allopurinol [Zyloprim -] 100 mg PO DAILY 02/12/17 Aspirin [ASA -] 81 mg PO DAILY 02/12/17 PE: per resident's note ASSESSMENT AND PLAN: 56 y/o gentleman with h/o Nicotine dependence, HTN, CAD s/p Stenting , hyperlipidemia and recently diagnosed R lung adenocarcinoma who presented for pulmonary resection,and also was found to have laryngeal SCC # Acute hypoxic resp failure,resolved.s/p intubation and extubation s/p tracheostomy continue mucomyst Nebs with albuterol and suction # Laryngeal SCC s/p larynegectomy, with flap reconstruction: will need Radiation 4-6 w after surgery as an outpatient. #Agitation/Acute delirium : agitated today will increase his Librium to 10mg every 6 hrs as scheduled, do not reduce the dose since patient is AGITATED WILL CONTINUE TO MONITOR THE PATIENT. oNCE OFF THE RESTRAINTS FOR 24HRS, THEN CAN DISCHARGE THE PATIENT TO REHAB. # Nutrition: cont soft diet # HTN -cont norvasc and Metoprolol. # CAD: aspirin # Nicotine dependence . nicotine patch was not recommended by surgical team DVT px with heparin Cont PT
--- NOTE | 2017-03-16 20:32 | PN ---
Progress Note (short form) - Note Progress Note: Radiation Oncology More alert and engages in communication. In mittens and wrist restraints. Tracheostoma patent, drains out, surgical incisions in neck and donor sites healing. MS seems to be slowly improving. Spoke to pt about post op RT, 6 wk course of daily tx as outpatient, side effects as well. He acknowledged understanding. Will need further recovery. May consider RT in 2-3 wks.
[2017-03-16] MEDS: QUEtiapine FUMARATE 25 MG TABLET (FP) PO SCH (22:18)
[2017-03-16] MEDS: MELATONIN 5 MG TABLETS PO PRN (22:18)
[2017-03-17] MEDS: HEPARIN NA (PORCINE) 5,000 UNITS/ML 1ML VIAL SQ SCH ×3 (06:46→22:48)
[2017-03-17] MEDS: chlordiazePOXIDE 5 MG CAPSULE PO SCH ×3 (06:46→18:50)
[2017-03-17] MEDS: GABAPENTIN 300 MG CAPSULE (FP) PO SCH ×3 (06:47→22:48)
[2017-03-17] MEDS: ACETYLCYSTEINE 20% 200MG/ML 4 ML VIAL *FOR ORAL / INH USE ONLY NEB SCH ×3 (06:58→22:23)
[2017-03-17] MEDS: ALBUTEROL SO4 0.083% IH SOL 2.5 MG/3 ML VIAL.NEB. NEB PRN (06:59)
[2017-03-17 08:23] LABS: ANION GAP 7 (8-16); CALCIUM 8.3 mg/dL (8.5-10.1); CO2 29 mmol/L (21-32); CREATININE 0.9 mg/dL (0.7-1.3); GLUCOSE,RANDOM 117 mg/dL (74-106); MAGNESIUM 1.9 mg/dL (1.8-2.4); PHOSPHOROUS 3.8 mg/dL (2.5-4.9)
[2017-03-17] MEDS ORDERED: PT OWN MED DRAWER 7, Y5N ONE (09:13)
[2017-03-17] MEDS: ASPIRIN 81 MG CHEWABLE TABLETS PO SCH (09:26)
[2017-03-17] MEDS: FOLIC ACID 1 MG TABLET (FP) PO SCH (09:27)
[2017-03-17] MEDS: BACITRACIN 15 GM TUBE TOPICAL OINTMENT TP SCH ×2 (09:27→22:48)
[2017-03-17] MEDS: ZINC OXIDE 20% TOPICAL OINTMENT 30 GM TUBE TP SCH ×2 (09:28→22:47)
[2017-03-17] MEDS: ALLOPURINOL 100 MG TABLET (FP) PO SCH (09:28)
[2017-03-17] MEDS: METOPROLOL TARTRATE 25 MG TABLET (FP) PO SCH ×2 (09:28→22:48)
[2017-03-17] MEDS: THIAMINE HCL 100 MG TABLET (FP) PO SCH (09:29)
[2017-03-17] MEDS: amLODIPine BESYLATE 10 MG TABLET (FP) PO SCH (09:29)
[2017-03-17] MEDS: MULTIVITAMINS (DAILY MVI) TABLET (FP) PO SCH (09:29)
[2017-03-17] MEDS: SERTRALINE HCL 50 MG TABLET (FP) PO SCH (09:30)
--- NOTE | 2017-03-17 09:55 | PN ---
Physical Exam: SUBJECTIVE: Patient seen and examined. Pt slept well last night per 1:1. No fever, chills. No events overnight. OBJECTIVE: Vital Signs Period Temp Pulse Resp BP Sys/Clay Pulse Ox Last 24 Hr 98.5 F-99.2 F 72-80 17-20 114-140/73-93 97-97 GENERAL: Alert, NAD, in vest restraint. NECK: Incision C/D/I. Trach tube in place. LUNGS: Breath sounds equal, clear to anterior auscultation bilaterally, no accessory muscle use. HEART: Regular rate and rhythm, S1, S2 without murmur, rub or gallop. ABDOMEN: Soft, nontender, nondistended. G-tube in place. EXTREMITIES: Warm, well-perfused, no edema. Clean, dry wounds to sheree anterior thighs. SKIN: Warm, dry, normal turgor, no rashes or lesions noted Laboratory Results - last 24 hr 03/16/17 03/16/17 03/17/17 08:00 11:19 07:15 Manual Slide Review No Result Required. Sodium 141 Potassium 3.9 Chloride 105 Carbon Dioxide 29 Anion Gap 7 L BUN 6 L Creatinine 0.9 POC Glucometer 115 Random Glucose 117 H Calcium 8.3 L Phosphorus 3.8 Magnesium 1.9 Active Medications Generic Name Dose Route Start Last Admin Trade Name Freq PRN Reason Stop Dose Admin Acetylcysteine 600 mg 03/10/17 06:00 03/17/17 06:58 Mucomyst 20 Oral / Inh Use Only* NEB 600 mg TIDR JUNIOR Administration Albuterol Sulfate 1 amp 03/05/17 19:48 03/12/17 17:10 Ventolin 0.5% - NEB 1 amp Q4H PRN Administration SHORT OF BREATH/WHEEZING Albuterol Sulfate 1 amp 03/08/17 14:34 03/17/17 06:59 Ventolin 0.083% Nebulizer Soln - NEB 1 amp Q6H PRN Administration WHEEZING Allopurinol 100 mg 03/10/17 12:05 03/17/17 09:28 Zyloprim - PO 100 mg DAILY JUNIOR Administration Amlodipine Besylate 10 mg 03/10/17 12:05 03/17/17 09:29 Norvasc - PO 10 mg DAILY JUNIOR Administration Aspirin 81 mg 03/10/17 12:05 03/17/17 09:26 Asa - PO 81 mg DAILY JUNIOR Administration Bacitracin 1 applic 03/10/17 10:00 03/17/17 09:27 Bacitracin - TP 1 applic BID JUNIOR Administration Chlordiazepoxide HCl 10 mg 03/16/17 07:04 03/17/17 06:46 Librium - PO 10 mg Q6HPO JUNIOR Administration Folic Acid 1 mg 03/10/17 10:00 03/17/17 09:27 Folic Acid - PO 1 mg DAILY JUNIOR Administration Gabapentin 300 mg 03/10/17 06:00 03/17/17 06:47 Neurontin - PO 300 mg TID JUNIOR Administration Heparin Sodium (Porcine) 5,000 unit 03/10/17 06:00 03/17/17 06:46 Heparin - SQ 5,000 unit TID JUNIOR Administration Ibuprofen 400 mg 03/11/17 20:55 03/14/17 09:35 Motrin - PO 400 mg Q6H PRN Administration PAIN Melatonin 5 mg 03/16/17 15:14 03/16/17 22:18 Melatonin PO 5 mg HS PRN Administration INSOMNIA Metoprolol Tartrate 25 mg 03/10/17 10:00 03/17/17 09:28 Lopressor - PO 25 mg BID JUNIOR Administration Multi-Ingredient Lotion 1 applic 03/09/17 15:03 Eucerin (Large Jar) - TP DAILY PRN DRY SKIN Multi-Ingredient Ointment 1 applic 03/07/17 22:00 03/17/17 09:28 Zinc Oxide TP 1 applic BID JUNIOR Administration Multivitamins/Minerals/Vitamin C 1 tab 03/10/17 10:00 03/17/17 09:29 Tab-A-Vit - PO 1 tab DAILY JUNIOR Administration Quetiapine Fumarate 25 mg 03/10/17 22:00 03/16/17 22:18 Seroquel - PO 25 mg HS JUNIOR Administration Sertraline HCl 50 mg 03/10/17 10:00 03/17/17 09:30 Zoloft - PO 50 mg DAILY JUNIOR Administration Sodium Chloride 2 spray 03/09/17 23:11 [place] Nasal [place] - NS BID PRN NASAL CONGESTION Thiamine HCl 100 mg 03/16/17 10:00 03/17/17 09:29 Vitamin B1 - PO 100 mg DAILY JUNIOR Administration ASSESSMENT/PLAN: 56yo M with PMH of nicotine dependence, Right lung CA, CAD with 2 stents, htn, hld, gout, presented with worsening cough and sputum production and admitted to med-surg for lung resection, 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 # acute hypoxic respiratory failure - resolved - continue mucomyst with albuterol nebs # Laryngeal squamous cell Ca s/p laryngectomy with left anterolateral thigh flap pharyngeal reconstruction on 02/20/17 - POD 25 - Motrin q6hr prn for pain - continue Neurontin TID - post-op care per surgery - incentive spirometry - suction q3-4hrs and prn - O2 prn # agitation - mental status much improved - continue 1:1 and restraints - continue Librium and Melatonin prn # htn - continue Norvasc and Lopressor # CAD s/p 2 stents - continue ASA # gout - continue Allopurinol # 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 Gilmore as outpatient # FEN - Fluids: encourage po - Electolytes: wnl, continue to monitor. - Nutrition: soft diet # Prophylaxis - DVT ppx with Heparin 5,000U SQ TID - deconditioning ppx with PT and Chest PT Visit type - Emergency Visit Emergency Visit: Yes ED Registration Date: 02/11/17 Care time: The patient presented to the Emergency Department on the above date and was hospitalized for further evaluation of their emergent condition. - New Patient This patient is new to me today: No - Critical Care Critical Care patient: No
[2017-03-17] MEDS: IBUPROFEN 400 MG TABLET (FP) PO PRN (10:55)
--- NOTE | 2017-03-17 12:21 | PN ---
Progress Note (short form) - Note Progress Note: PULMONARY Saturating well on trach collar. No fevers recorded. Last Vital Signs Temp Pulse Resp BP Pulse Ox 98.5 F 74 20 114/73 97 03/17/17 06:00 03/17/17 10:45 03/17/17 06:00 03/17/17 06:00 03/17/17 10:45 Gen: less agitated Heart: RRR Lung: decreased breath sounds at the bases Abd: soft, nontender Ext: no edema CBC, BMP 03/16/17 08:00 03/17/17 07:15 Active Medications Acetylcysteine (Mucomyst 20 Oral / Inh Use Only*) 600 mg NEB TIDR [facility] Last Admin: 03/17/17 06:58 Dose: 600 mg Albuterol Sulfate (Ventolin 0.5% -) 1 amp NEB Q4H PRN PRN Reason: SHORT OF BREATH/WHEEZING Last Admin: 03/12/17 17:10 Dose: 1 amp Albuterol Sulfate (Ventolin 0.083% Nebulizer Soln -) 1 amp NEB Q6H PRN PRN Reason: WHEEZING Last Admin: 03/17/17 06:59 Dose: 1 amp Allopurinol (Zyloprim -) 100 mg PO DAILY [facility] Last Admin: 03/17/17 09:28 Dose: 100 mg Amlodipine Besylate (Norvasc -) 10 mg PO DAILY [facility] Last Admin: 03/17/17 09:29 Dose: 10 mg Aspirin (Asa -) 81 mg PO DAILY [facility] Last Admin: 03/17/17 09:26 Dose: 81 mg Bacitracin (Bacitracin -) 1 applic TP BID [facility] Last Admin: 03/17/17 09:27 Dose: 1 applic Chlordiazepoxide HCl (Librium -) 10 mg PO Q6HPO [facility] Last Admin: 03/17/17 06:46 Dose: 10 mg Folic Acid (Folic Acid -) 1 mg PO DAILY [facility] Last Admin: 03/17/17 09:27 Dose: 1 mg Gabapentin (Neurontin -) 300 mg PO TID [facility] Last Admin: 03/17/17 06:47 Dose: 300 mg Heparin Sodium (Porcine) (Heparin -) 5,000 unit SQ TID [facility] Last Admin: 03/17/17 06:46 Dose: 5,000 unit Ibuprofen (Motrin -) 400 mg PO Q6H PRN PRN Reason: PAIN Last Admin: 03/17/17 10:55 Dose: 400 mg Melatonin (Melatonin) 5 mg PO HS PRN PRN Reason: INSOMNIA Last Admin: 03/16/17 22:18 Dose: 5 mg Metoprolol Tartrate (Lopressor -) 25 mg PO BID [facility] Last Admin: 03/17/17 09:28 Dose: 25 mg Multi-Ingredient Lotion (Eucerin (Large Jar) -) 1 applic TP DAILY PRN PRN Reason: DRY SKIN Multi-Ingredient Ointment (Zinc Oxide) 1 applic TP BID [facility] Last Admin: 03/17/17 09:28 Dose: 1 applic Multivitamins/Minerals/Vitamin C (Tab-A-Vit -) 1 tab PO DAILY [facility] Last Admin: 03/17/17 09:29 Dose: 1 tab Quetiapine Fumarate (Seroquel -) 25 mg PO HS [facility] Last Admin: 03/16/17 22:18 Dose: 25 mg Sertraline HCl (Zoloft -) 50 mg PO DAILY [facility] Last Admin: 03/17/17 09:30 Dose: 50 mg Sodium Chloride ([place] Nasal [place] -) 2 spray NS BID PRN PRN Reason: NASAL CONGESTION Thiamine HCl (Vitamin B1 -) 100 mg PO DAILY [facility] Last Admin: 03/17/17 09:29 Dose: 100 mg A/P NSCLC - Adenocarcinoma s/p R VATS/Wedge Resection/CT placement now removed 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
[2017-03-17] MEDS: ALBUTEROL SO4 0.5 % INH SOLN 2.5 MG/0.5 ML VIAL.NEB. NEB PRN ×2 (14:15→22:23)
--- NOTE | 2017-03-17 15:40 | PN ---
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 I educated pt again, drawing a picture for him.I also gave him a clip board to write and express himself. He wrote he is "tired of all the games" with impaired memory and insight demonstrated. Case reviewed with Dr. Lucero, discussed potential to communicate with TEP +/or electrolarynx. Hopefully pt will be able to participate in speech tx, if pt improves cognitively. In meantime, staff is encouraged to remind pt about his laryngectomy, that his voice box was removed, and he can not speak audibly. He should be encouraged to mouth words, write words or use the letter/word communication board constructed for him. Pending possible Tracheo-esophageal puncture by Dr. Lucero.
--- NOTE | 2017-03-17 19:22 | PN ---
Teaching Attending Note Name of Resident: Gloria Zaldivar ATTENDING PHYSICIAN STATEMENT I saw and evaluated the patient. I reviewed the resident's note and discussed the case with the resident. I agree with the resident's findings and plan as documented. SUBJECTIVE: Patient looks better today, calmer today. OBJECTIVE: Vital Signs Temperature 98.3 F 03/17/17 10:00 Pulse Rate 76 03/17/17 15:00 Respiratory Rate 20 03/17/17 10:00 Blood Pressure 130/80 03/17/17 10:00 O2 Sat by Pulse Oximetry (%) 96 03/17/17 15:00 CBCD WBC 8.4 K/mm3 (4.0-10.0) 03/16/17 08:00 RBC 3.36 M/mm3 (4.00-5.60) L 03/16/17 08:00 Hgb 10.4 GM/dL (11.7-16.9) L 03/16/17 08:00 Hct 30.8 % (35.4-49) L 03/16/17 08:00 MCV 91.7 fl (80-96) 03/16/17 08:00 MCHC 33.7 g/dl (32.0-35.9) 03/16/17 08:00 RDW 13.6 % (11.9-15.9) 03/16/17 08:00 Plt Count 193 K/MM3 (134-434) D 03/16/17 08:00 MPV 10.1 fl (7.5-11.1) 03/16/17 08:00 CMP Sodium 141 mmol/L (136-145) 03/17/17 07:15 Potassium 3.9 mmol/L (3.5-5.1) 03/17/17 07:15 Chloride 105 mmol/L (98-107) 03/17/17 07:15 Carbon Dioxide 29 mmol/L (21-32) 03/17/17 07:15 Anion Gap 7 (8-16) L 03/17/17 07:15 BUN 6 mg/dL (7-18) L 03/17/17 07:15 Creatinine 0.9 mg/dL (0.7-1.3) 03/17/17 07:15 Creat Clearance w eGFR > 60 (>60) 03/10/17 06:50 Random Glucose 117 mg/dL (74-106) H 03/17/17 07:15 Calcium 8.3 mg/dL (8.5-10.1) L 03/17/17 07:15 Total Bilirubin 0.5 mg/dL (0.2-1.0) D 03/10/17 06:50 AST 23 U/L (15-37) 03/10/17 06:50 ALT 29 U/L (12-78) 03/10/17 06:50 Alkaline Phosphatase 96 U/L (45-117) 03/10/17 06:50 Total Protein 7.0 g/dl (6.4-8.2) 03/10/17 06:50 Albumin 2.7 g/dl (3.4-5.0) L D 03/10/17 06:50 CARDIAC ENZYMES Creatine Kinase 71 IU/L (39-308) 02/11/17 10:24 Troponin I < 0.02 ng/ml (0.00-0.05) 02/11/17 10:24 Current Medications Generic Name Dose Route Start Last Admin Trade Name Freq PRN Reason Stop Dose Admin Acetylcysteine 600 mg 03/10/17 06:00 03/17/17 14:15 Mucomyst 20 Oral / Inh Use Only* NEB 600 mg TIDR [facility] Administration Albuterol Sulfate 1 amp 03/05/17 19:48 03/17/17 14:15 Ventolin 0.5% - NEB 1 amp Q4H PRN Administration SHORT OF BREATH/WHEEZING Albuterol Sulfate 1 amp 03/08/17 14:34 03/17/17 06:59 Ventolin 0.083% Nebulizer Soln - NEB 1 amp Q6H PRN Administration WHEEZING Allopurinol 100 mg 03/10/17 12:05 03/17/17 09:28 Zyloprim - PO 100 mg DAILY [facility] Administration Amlodipine Besylate 10 mg 03/10/17 12:05 03/17/17 09:29 Norvasc - PO 10 mg DAILY [facility] Administration Aspirin 81 mg 03/10/17 12:05 03/17/17 09:26 Asa - PO 81 mg DAILY [facility] Administration Bacitracin 1 applic 03/10/17 10:00 03/17/17 09:27 Bacitracin - TP 1 applic BID [facility] Administration Chlordiazepoxide HCl 10 mg 03/16/17 07:04 03/17/17 18:50 Librium - PO 10 mg Q6HPO [facility] Administration Folic Acid 1 mg 03/10/17 10:00 03/17/17 09:27 Folic Acid - PO 1 mg DAILY [facility] Administration Gabapentin 300 mg 03/10/17 06:00 03/17/17 15:35 Neurontin - PO 300 mg TID [facility] Administration Heparin Sodium (Porcine) 5,000 unit 03/10/17 06:00 03/17/17 15:30 Heparin - SQ 5,000 unit TID [facility] Administration Ibuprofen 400 mg 03/11/17 20:55 03/17/17 10:55 Motrin - PO 400 mg Q6H PRN Administration PAIN Melatonin 5 mg 03/16/17 15:14 03/16/17 22:18 Melatonin PO 5 mg HS PRN Administration INSOMNIA Metoprolol Tartrate 25 mg 03/10/17 10:00 03/17/17 09:28 Lopressor - PO 25 mg BID [facility] Administration Multi-Ingredient Lotion 1 applic 03/09/17 15:03 Eucerin (Large Jar) - TP DAILY PRN DRY SKIN Multi-Ingredient Ointment 1 applic 03/07/17 22:00 03/17/17 09:28 Zinc Oxide TP 1 applic BID [facility] Administration Multivitamins/Minerals/Vitamin C 1 tab 03/10/17 10:00 03/17/17 09:29 Tab-A-Vit - PO 1 tab DAILY [facility] Administration Quetiapine Fumarate 25 mg 03/10/17 22:00 03/16/17 22:18 Seroquel - PO 25 mg HS [facility] Administration Sertraline HCl 50 mg 03/10/17 10:00 03/17/17 09:30 Zoloft - PO 50 mg DAILY [facility] Administration Sodium Chloride 2 spray 03/09/17 23:11 [place] Nasal [place] - NS BID PRN NASAL CONGESTION Thiamine HCl 100 mg 03/16/17 10:00 03/17/17 09:29 Vitamin B1 - PO 100 mg DAILY [facility] Administration Home Medications Medication Instructions Recorded Amlodipine Besylate 10 mg PO DAILY 12/23/16 Atorvastatin Ca [Lipitor] 10 mg PO HS 12/23/16 Gabapentin 800 mg PO TID 12/23/16 Quetiapine Fumarate "Xr" [Seroquel 300 mg PO ACDIN 12/23/16 Xr -] Sertraline HCl [Zoloft] 100 mg PO BID 12/23/16 Folic Acid 1 mg PO DAILY 01/02/17 Allopurinol [Zyloprim -] 100 mg PO DAILY 02/12/17 Aspirin [ASA -] 81 mg PO DAILY 02/12/17 PE: per resident's note. 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 On Librium to 10mg every 6 hrs as scheduled, do not reduce the dose since patient is AGITATED, WILL CONTINUE TO MONITOR THE PATIENT. ONCE OFF THE RESTRAINTS FOR 24HRS, THEN CAN DISCHARGE THE PATIENT TO REHAB. # Acute hypoxic resp failure,resolved.s/p intubation and extubation s/p tracheostomy continue mucomyst Nebs with albuterol and suction # Laryngeal SCC s/p larynegectomy, with flap reconstruction: will need Radiation 4-6 w after surgery as an outpatient. # Nutrition: cont soft diet # HTN -cont norvasc and Metoprolol. # CAD: aspirin # Nicotine dependence . nicotine patch was not recommended by surgical team DVT px with heparin PT ordered.
[2017-03-17] MEDS: QUEtiapine FUMARATE 25 MG TABLET (FP) PO SCH (22:48)
[2017-03-17] MEDS: MELATONIN 5 MG TABLETS PO PRN (22:49)
[2017-03-18] MEDS: chlordiazePOXIDE 5 MG CAPSULE PO SCH ×4 (00:30→18:47)
[2017-03-18] MEDS: ALBUTEROL SO4 0.083% IH SOL 2.5 MG/3 ML VIAL.NEB. NEB PRN ×2 (06:35→14:15)
[2017-03-18] MEDS: ACETYLCYSTEINE 20% 200MG/ML 4 ML VIAL *FOR ORAL / INH USE ONLY NEB SCH ×2 (06:35→14:15)
[2017-03-18] MEDS: HEPARIN NA (PORCINE) 5,000 UNITS/ML 1ML VIAL SQ SCH ×3 (06:42→21:25)
[2017-03-18] MEDS: GABAPENTIN 300 MG CAPSULE (FP) PO SCH ×3 (06:42→21:29)
--- NOTE | 2017-03-18 11:59 | PN ---
Progress Note, CAMPAIGN ANALYST - Note Progress Note: Selected Entries 03/15/17 03/15/17 03/16/17 09:13 14:04 10:35 Breakfast 100% 25% Lunch 100% Supper Temperature 03/17/17 03/17/17 03/17/17 06:00 09:02 10:00 Breakfast 75% 100% Lunch Supper Temperature 98.5 F 98.3 F 03/17/17 03/17/17 03/18/17 19:00 20:30 06:00 Breakfast Lunch Supper 50% Temperature 98.4 F 98.2 F 03/18/17 09:55 Breakfast 100% Lunch Supper Temperature Pt upgraded to soft diet/thin liquid on 03/16. Much calmer and better able to participate in tx. Pt aware of laryngectomy, writing "I can't talk no more" Educated on options, pending possible TEP/ electrolarynx. Initiated alaryngeal speech training, with initial session without ability to produce tone. Reviewed benefit of writing, communication board, mouthing words slowly with exaggerated articulation.
[2017-03-18] MEDS: METOPROLOL TARTRATE 25 MG TABLET (FP) PO SCH ×2 (12:04→21:23)
[2017-03-18] MEDS: amLODIPine BESYLATE 10 MG TABLET (FP) PO SCH (12:04)
[2017-03-18] MEDS: ASPIRIN 81 MG CHEWABLE TABLETS PO SCH (12:05)
[2017-03-18] MEDS: THIAMINE HCL 100 MG TABLET (FP) PO SCH (12:05)
[2017-03-18] MEDS: SERTRALINE HCL 50 MG TABLET (FP) PO SCH ×2 (12:05→21:27)
[2017-03-18] MEDS: ALLOPURINOL 100 MG TABLET (FP) PO SCH (12:05)
[2017-03-18] MEDS: ZINC OXIDE 20% TOPICAL OINTMENT 30 GM TUBE TP SCH ×2 (12:05→21:27)
[2017-03-18] MEDS: FOLIC ACID 1 MG TABLET (FP) PO SCH (12:05)
[2017-03-18] MEDS: MULTIVITAMINS (DAILY MVI) TABLET (FP) PO SCH (12:05)
[2017-03-18] MEDS: BACITRACIN 15 GM TUBE TOPICAL OINTMENT TP SCH ×2 (12:05→23:01)
[2017-03-18] MEDS: SODIUM CHLORIDE NASAL SPRAY 44 ML BOTTLE NS PRN (12:13)
--- NOTE | 2017-03-18 13:30 | PN ---
Progress Note, Physician History of Present Illness: pulmonary alert,nad,sob. - Current Medication List Current Medications: Active Medications Acetylcysteine (Mucomyst 20 Oral / Inh Use Only*) 600 mg NEB TIDR [facility] Last Admin: 03/18/17 06:35 Dose: 600 mg Albuterol Sulfate (Ventolin 0.5% -) 1 amp NEB Q4H PRN PRN Reason: SHORT OF BREATH/WHEEZING Last Admin: 03/17/17 22:23 Dose: 1 amp Albuterol Sulfate (Ventolin 0.083% Nebulizer Soln -) 1 amp NEB Q6H PRN PRN Reason: WHEEZING Last Admin: 03/18/17 06:35 Dose: 1 amp Allopurinol (Zyloprim -) 100 mg PO DAILY [facility] Last Admin: 03/18/17 12:05 Dose: 100 mg Amlodipine Besylate (Norvasc -) 10 mg PO DAILY [facility] Last Admin: 03/18/17 12:04 Dose: 10 mg Aspirin (Asa -) 81 mg PO DAILY [facility] Last Admin: 03/18/17 12:05 Dose: 81 mg Bacitracin (Bacitracin -) 1 applic TP BID [facility] Last Admin: 03/18/17 12:05 Dose: 1 applic Chlordiazepoxide HCl (Librium -) 10 mg PO Q6HPO [facility] Last Admin: 03/18/17 12:04 Dose: 10 mg Folic Acid (Folic Acid -) 1 mg PO DAILY [facility] Last Admin: 03/18/17 12:05 Dose: 1 mg Gabapentin (Neurontin -) 300 mg PO TID [facility] Last Admin: 03/18/17 06:42 Dose: 300 mg Heparin Sodium (Porcine) (Heparin -) 5,000 unit SQ TID [facility] Last Admin: 03/18/17 06:42 Dose: 5,000 unit Ibuprofen (Motrin -) 400 mg PO Q6H PRN PRN Reason: PAIN Last Admin: 03/17/17 10:55 Dose: 400 mg Melatonin (Melatonin) 5 mg PO HS PRN PRN Reason: INSOMNIA Last Admin: 03/17/17 22:49 Dose: 5 mg Metoprolol Tartrate (Lopressor -) 25 mg PO BID [facility] Last Admin: 03/18/17 12:04 Dose: 25 mg Multi-Ingredient Lotion (Eucerin (Large Jar) -) 1 applic TP DAILY PRN PRN Reason: DRY SKIN Multi-Ingredient Ointment (Zinc Oxide) 1 applic TP BID [facility] Last Admin: 03/18/17 12:05 Dose: 1 applic Multivitamins/Minerals/Vitamin C (Tab-A-Vit -) 1 tab PO DAILY [facility] Last Admin: 03/18/17 12:05 Dose: 1 tab Quetiapine Fumarate (Seroquel -) 25 mg PO HS [facility] Last Admin: 03/17/17 22:48 Dose: 25 mg Sertraline HCl (Zoloft -) 50 mg PO DAILY [facility] Last Admin: 03/18/17 12:05 Dose: 50 mg Sodium Chloride ([place] Nasal [place] -) 2 spray NS BID PRN PRN Reason: NASAL CONGESTION Last Admin: 03/18/17 12:13 Dose: 2 sprays Thiamine HCl (Vitamin B1 -) 100 mg PO DAILY [facility] Last Admin: 03/18/17 12:05 Dose: 100 mg - Objective Vital Signs: Vital Signs Temperature 98.2 F 03/18/17 06:00 Pulse Rate 70 03/18/17 06:40 Respiratory Rate 20 03/18/17 06:00 Blood Pressure 130/77 03/18/17 06:00 O2 Sat by Pulse Oximetry (%) 97 03/18/17 06:40 Constitutional: Yes: Well Nourished, Calm Eyes: Yes: WNL HENT: Yes: WNL Neck: Yes: Supple (trach) Cardiovascular: Yes: Regular Rate and Rhythm, S1, S2 Respiratory: Yes: Rhonchi (few rhonchi) Gastrointestinal: Yes: Normal Bowel Sounds, Soft Extremities: Yes: WNL Edema: No Labs: CBC, BMP Problem List - Problems (1) Alcohol dependence Code(s): F10.20 - ALCOHOL DEPENDENCE, UNCOMPLICATED Qualifiers: Substance use status: with intoxication Complication of substance-induced condition: with unspecified complication Qualified Code(s): F10.229 - Alcohol dependence with intoxication, unspecified (2) Alcohol intoxication Code(s): F10.929 - ALCOHOL USE, UNSPECIFIED WITH INTOXICATION, UNSPECIFIED Qualifiers: Complication of substance-induced condition: with unspecified complication Qualified Code(s): F10.929 - Alcohol use, unspecified with intoxication, unspecified (3) Cough Code(s): R05 - COUGH (5) Lung cancer Code(s): C34.90 - MALIGNANT NEOPLASM OF UNSP PART OF UNSP BRONCHUS OR LUNG Qualifiers: Laterality: unspecified laterality Lung location: overlapping sites Qualified Code(s): C34.80 - Malignant neoplasm of overlapping sites of unspecified bronchus and lung (6) Metastatic disease Code(s): C79.9 - SECONDARY MALIGNANT NEOPLASM OF UNSPECIFIED SITE (7) Nicotine dependence Code(s): F17.200 - NICOTINE DEPENDENCE, UNSPECIFIED, UNCOMPLICATED (8) Laryngeal squamous cell carcinoma Code(s): C32.9 - MALIGNANT NEOPLASM OF LARYNX, UNSPECIFIED Assessment/Plan ASSESSMENT AND PLAN: NSCLC - Adenocarcinoma s/p R VATS/Wedge Resection/CT placement now removed 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
--- NOTE | 2017-03-18 16:25 | PN ---
Progress Note (short form) - Note Progress Note: Seen and examined, events noted. Tracheostomy tube occasionally becomes dislodged and neck covers over tracheostome, making him hypoxic. Tracheostomy tube is replaced and problem resolved. Currently comfortable, eating well, in no distress, but somewhat agitated. Neck wounds well-healed, abdomen soft and nontender with g-tube in place. Labs unremarkable. Continues to gradually improve. Keep trach tie collar tight enough to prevent trach tube from being dislodged. Suction as needed. Ambulate with PT Follow up from detox team for [facility] plan regarding rehab and medication needed Social work should see for placement in short term rehab center Probably only needs labs 1-2 times per week at this point Preop for Thursday for rigid esophagoscopy and tracheoesophageal puncture prosthesis.
--- NOTE | 2017-03-18 17:54 | PN ---
Teaching Attending Note Name of Resident: Gloria Zaldivar ATTENDING PHYSICIAN STATEMENT I saw and evaluated the patient. I reviewed the resident's note and discussed the case with the resident. I agree with the resident's findings and plan as documented. SUBJECTIVE: " I can't talk " has a slight pain in neck . no other pain. OBJECTIVE: NAD,awake , smiling . neck with well healing scar. One staple on L . trach collar on . CV: RRR Lungs: clear bilaterally Ext: R anterior thigh wound with no drainage . L anterior thigh wound with brown drainage form upper part ABd: soft, NT, ND , PEH in place with no surrounding edema pr erythema ASSESSMENT AND PLAN: 56 y/o gentleman with h/o Nicotine dependence, HTN, CAD s/p Stenting , hyperlipidemia and recently diagnosed R lung adenocarcinoma who presented for pulmonary resection. 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 2- Acute delirium. improved . - cont librium - dc melatonin - increase zoloft to home dose 100 BID 3- Laryngeal SCC s/p larynegectomy, with flap reconstruction - for tracheo-esophageal puncture onThursday - will need Radiation 4-6 w after surgery as out tp - Cont Neurontin 4- Nutrition: - cont diet - resume calori counting 5- HTN -cont norvasc and Metoprolol. 6- CAD: aspirin DVT px with heparin
--- NOTE | 2017-03-18 18:14 | PN ---
Physical Exam: SUBJECTIVE: Patient seen and examined. Sitting up eating dinner, smiling, upon reassessment this evening. Pt was agitated last night and had to be restrained to preserve his trach. Pt denies pain. OBJECTIVE: Vital Signs Period Temp Pulse Resp BP Sys/Clay Pulse Ox Last 24 Hr 97.5 F-98.4 F 63-98 18-22 111-165/60-98 97-98 GENERAL: Awake, alert, smiling, NAD. NECK: Incision C/D/I. 1 staple noted to Left neck. Trach tube in place. LUNGS: Breath sounds equal, clear to auscultation bilaterally, no accessory muscle use. HEART: Regular rate and rhythm, S1, S2 without murmur, rub or gallop. ABDOMEN: Soft, nontender, nondistended. G-tube in place. EXTREMITIES: 2+ pulses sheree, warm, well-perfused, no edema. SKIN: Warm, dry, normal turgor, no rashes. Active Medications Generic Name Dose Route Start Last Admin Trade Name Freq PRN Reason Stop Dose Admin Acetylcysteine 600 mg 03/10/17 06:00 03/18/17 14:15 Mucomyst 20 Oral / Inh Use Only* NEB 600 mg TIDR [facility] Administration Albuterol Sulfate 1 amp 03/05/17 19:48 03/17/17 22:23 Ventolin 0.5% - NEB 1 amp Q4H PRN Administration SHORT OF BREATH/WHEEZING Albuterol Sulfate 1 amp 03/08/17 14:34 03/18/17 14:15 Ventolin 0.083% Nebulizer Soln - NEB 1 amp Q6H PRN Administration WHEEZING Allopurinol 100 mg 03/10/17 12:05 03/18/17 12:05 Zyloprim - PO 100 mg DAILY [facility] Administration Amlodipine Besylate 10 mg 03/10/17 12:05 03/18/17 12:04 Norvasc - PO 10 mg DAILY [facility] Administration Aspirin 81 mg 03/10/17 12:05 03/18/17 12:05 Asa - PO 81 mg DAILY [facility] Administration Bacitracin 1 applic 03/10/17 10:00 03/18/17 12:05 Bacitracin - TP 1 applic BID [facility] Administration Chlordiazepoxide HCl 10 mg 03/16/17 07:04 03/18/17 12:04 Librium - PO 10 mg Q6HPO [facility] Administration Folic Acid 1 mg 03/10/17 10:00 03/18/17 12:05 Folic Acid - PO 1 mg DAILY [facility] Administration Gabapentin 300 mg 03/10/17 06:00 03/18/17 17:08 Neurontin - PO Not Given TID [facility] Heparin Sodium (Porcine) 5,000 unit 03/10/17 06:00 03/18/17 17:08 Heparin - SQ Not Given TID [facility] Ibuprofen 400 mg 03/11/17 20:55 03/17/17 10:55 Motrin - PO 400 mg Q6H PRN Administration PAIN Metoprolol Tartrate 25 mg 03/10/17 10:00 03/18/17 12:04 Lopressor - PO 25 mg BID [facility] Administration Multi-Ingredient Lotion 1 applic 03/09/17 15:03 Eucerin (Large Jar) - TP DAILY PRN DRY SKIN Multi-Ingredient Ointment 1 applic 03/07/17 22:00 03/18/17 12:05 Zinc Oxide TP 1 applic BID [facility] Administration Multivitamins/Minerals/Vitamin C 1 tab 03/10/17 10:00 03/18/17 12:05 Tab-A-Vit - PO 1 tab DAILY [facility] Administration Quetiapine Fumarate 25 mg 03/10/17 22:00 03/17/17 22:48 Seroquel - PO 25 mg HS [facility] Administration Sertraline HCl 100 mg 03/18/17 22:00 Zoloft - PO BID [facility] Sodium Chloride 2 spray 03/09/17 23:11 03/18/17 12:13 [place] Nasal [place] - NS 2 sprays BID PRN Administration NASAL CONGESTION Thiamine HCl 100 mg 03/16/17 10:00 03/18/17 12:05 Vitamin B1 - PO 100 mg DAILY [facility] Administration ASSESSMENT/PLAN: 56yo M with PMH of nicotine dependence, Right lung CA, CAD with 2 stents, htn, hld, gout, presented with worsening cough and sputum production and admitted to med-surg for lung resection, 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 # agitation - mental status much improved - continue 1:1 and restraints - continue Librium - Zoloft increased to home dose of 100mg BID # acute hypoxic respiratory failure - resolved, trach in place - continue mucomyst with albuterol nebs # Laryngeal squamous cell Ca s/p laryngectomy with left anterolateral thigh flap pharyngeal reconstruction on 02/20/17 - POD 26 - Motrin q6hr prn for pain - continue Neurontin TID - post-op care per surgery - incentive spirometry - suction q3-4hrs and prn - O2 prn # htn - continue Norvasc and Lopressor # CAD s/p 2 stents - continue ASA # gout - continue Allopurinol # 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 Gilmore as outpatient # FEN - Fluids: encourage po - Electolytes: wnl, continue to monitor. - Nutrition: soft diet # Prophylaxis - DVT ppx with Heparin 5,000U SQ TID - deconditioning ppx with PT and Chest PT Visit type - Emergency Visit Emergency Visit: Yes ED Registration Date: 02/11/17 Care time: The patient presented to the Emergency Department on the above date and was hospitalized for further evaluation of their emergent condition. - New Patient This patient is new to me today: No - Critical Care Critical Care patient: No
[2017-03-18] MEDS: QUEtiapine FUMARATE 25 MG TABLET (FP) PO SCH (21:26)
[2017-03-18] MEDS ORDERED: MELATONIN 5 MG TABLETS PO PRN (23:03)
[2017-03-19] MEDS: chlordiazePOXIDE 5 MG CAPSULE PO SCH ×2 (01:32→05:27)
[2017-03-19] MEDS: HEPARIN NA (PORCINE) 5,000 UNITS/ML 1ML VIAL SQ SCH ×3 (05:27→23:15)
[2017-03-19] MEDS: GABAPENTIN 300 MG CAPSULE (FP) PO SCH (05:28)
[2017-03-19] MEDS: ACETYLCYSTEINE 20% 200MG/ML 4 ML VIAL *FOR ORAL / INH USE ONLY NEB SCH ×3 (06:31→23:00)
[2017-03-19] MEDS: ALBUTEROL SO4 0.083% IH SOL 2.5 MG/3 ML VIAL.NEB. NEB PRN (06:31)
--- NOTE | 2017-03-19 08:20 | PN ---
[facility] Progress Note (SOAP) Subjective: s/p laryngectomy and lung resection r upper lobe, nursing staff reporting agitation requiring restraints and requested to assess patient so that he is more comfortable, patietn denies pain but says he is uncomfortable and has difficulaty sleeping. currently on libirum 10mg q6h atc. Home Medication List Medication Instructions Recorded Confirmed Type Amlodipine Besylate 10 mg PO DAILY 12/23/16 02/11/17 History Atorvastatin Ca [Lipitor] 10 mg PO HS 12/23/16 02/11/17 History Gabapentin 800 mg PO TID 12/23/16 02/12/17 History Quetiapine Fumarate "Xr" [Seroquel 300 mg PO ACDIN 12/23/16 02/11/17 History Xr -] Sertraline HCl [Zoloft] 100 mg PO BID 12/23/16 02/12/17 History Folic Acid 1 mg PO DAILY 01/02/17 02/11/17 History Allopurinol [Zyloprim -] 100 mg PO DAILY 02/12/17 02/12/17 History Aspirin [ASA -] 81 mg PO DAILY 02/12/17 02/12/17 History Active Medications Generic Name Dose Route Start Last Admin Trade Name Freq PRN Reason Stop Dose Admin Acetylcysteine 600 mg 03/10/17 06:00 03/19/17 13:46 Mucomyst 20 Oral / Inh Use Only* NEB 600 mg TIDR JUNIOR Administration Albuterol Sulfate 1 amp 03/05/17 19:48 03/19/17 13:47 Ventolin 0.5% - NEB 1 amp Q4H PRN Administration SHORT OF BREATH/WHEEZING Albuterol Sulfate 1 amp 03/08/17 14:34 03/19/17 06:31 Ventolin 0.083% Nebulizer Soln - NEB 1 amp Q6H PRN Administration WHEEZING Allopurinol 100 mg 03/10/17 12:05 03/19/17 11:08 Zyloprim - PO 100 mg DAILY JUNIOR Administration Amlodipine Besylate 10 mg 03/10/17 12:05 03/19/17 11:08 Norvasc - PO 10 mg DAILY JUNIOR Administration Aspirin 81 mg 03/10/17 12:05 03/19/17 11:08 Asa - PO 81 mg DAILY JUNIOR Administration Bacitracin 1 applic 03/10/17 10:00 03/18/17 23:01 Bacitracin - TP 1 applic BID JUNIOR Administration Chlordiazepoxide HCl 25 mg 03/19/17 22:00 Librium - PO HS JUNIOR Chlordiazepoxide HCl 25 mg 03/19/17 08:24 Librium - PO Q6H PRN AGITATION Folic Acid 1 mg 03/10/17 10:00 03/19/17 11:08 Folic Acid - PO 1 mg DAILY JUNIOR Administration Gabapentin 400 mg 03/19/17 14:00 Neurontin - PO TID JUNIOR Heparin Sodium (Porcine) 5,000 unit 03/10/17 06:00 03/19/17 05:27 Heparin - SQ 5,000 unit TID JUNIOR Administration Ibuprofen 400 mg 03/11/17 20:55 03/17/17 10:55 Motrin - PO 400 mg Q6H PRN Administration PAIN Metoprolol Tartrate 25 mg 03/10/17 10:00 03/19/17 11:09 Lopressor - PO 25 mg BID JUNIOR Administration Multi-Ingredient Lotion 1 applic 03/09/17 15:03 Eucerin (Large Jar) - TP DAILY PRN DRY SKIN Multi-Ingredient Ointment 1 applic 03/07/17 22:00 03/18/17 21:27 Zinc Oxide TP 1 applic BID JUNIOR Administration Multivitamins/Minerals/Vitamin C 1 tab 03/10/17 10:00 03/18/17 12:05 Tab-A-Vit - PO 1 tab DAILY JUNIOR Administration Quetiapine Fumarate 100 mg 03/19/17 12:45 Seroquel Xr - PO HS@2000 JUNIOR Sertraline HCl 100 mg 03/18/17 22:00 03/19/17 11:08 Zoloft - PO 100 mg BID JUNIOR Administration Sodium Chloride 2 spray 03/09/17 23:11 03/18/17 12:13 [place] Nasal [place] - NS 2 sprays BID PRN Administration NASAL CONGESTION Thiamine HCl 100 mg 03/16/17 10:00 03/19/17 11:08 Vitamin B1 - PO 100 mg DAILY JUNIOR Administration Objective: 03/19/17 13:54 Vital Signs - 8 hr 03/19/17 03/19/17 06:00 09:00 Temperature 98.7 F Pulse Rate 70 70 Respiratory 20 Rate Blood Pressure 125/84 O2 Sat by Pulse 99 Oximetry (%) NAD, eating , appropriate affect, respoisve but difficulty articulating his needs. no pain noted Assessment: 03/19/17 13:54 alcohol dependence - completed detox but now having post op discomfort, agiation , insomnia, anxiety. patient would be comfortable with libirum 25mg qHS for sleep. d/c 10mg q6h libirum but can give 25mg prn q6h for agitation. recommend anemia work up. 03/19/17 13:55
[2017-03-19] MEDS ORDERED: GABAPENTIN 300 MG CAPSULE (FP) PO SCH (08:22)
[2017-03-19] MEDS ORDERED: chlordiazePOXIDE 5 MG CAPSULE PO PRN (08:24)
[2017-03-19] MEDS: MULTIVITAMINS (DAILY MVI) TABLET (FP) PO SCH (09:30)
[2017-03-19] MEDS: BACITRACIN 15 GM TUBE TOPICAL OINTMENT TP SCH ×2 (10:00→23:16)
[2017-03-19] MEDS: ZINC OXIDE 20% TOPICAL OINTMENT 30 GM TUBE TP SCH ×2 (11:00→23:16)
[2017-03-19] MEDS: SERTRALINE HCL 50 MG TABLET (FP) PO SCH ×2 (11:08→23:16)
[2017-03-19] MEDS: ALLOPURINOL 100 MG TABLET (FP) PO SCH (11:08)
[2017-03-19] MEDS: THIAMINE HCL 100 MG TABLET (FP) PO SCH (11:08)
[2017-03-19] MEDS: FOLIC ACID 1 MG TABLET (FP) PO SCH (11:08)
[2017-03-19] MEDS: amLODIPine BESYLATE 10 MG TABLET (FP) PO SCH (11:08)
[2017-03-19] MEDS: ASPIRIN 81 MG CHEWABLE TABLETS PO SCH (11:08)
[2017-03-19] MEDS: METOPROLOL TARTRATE 25 MG TABLET (FP) PO SCH ×2 (11:09→23:16)
--- NOTE | 2017-03-19 12:37 | PN ---
Progress Note, DIRECTOR TOXICOLOGY - Note Progress Note: More calm, oriented inconsistently. Pt aware of plan for TEP, but insists it will be today. Encouraged to write, articulate precisely to facilitate communication and reduce frustration. Tolerating diet.
--- NOTE | 2017-03-19 12:52 | PN ---
Addendum entered and electronically signed by Gloria Zaldivar, RESIDENT 13:01: POD 27, s/p laryngectomy. Pt scheduled for tracheo-esophageal puncture for Thursday. Speech pathologist following pt and providing speech therapy. Original Note: Physical Exam: SUBJECTIVE: Patient seen and examined. Pt denies pain. Pt able to mouth words to communicate. One staple removed from Left neck by me. Pt almost pulled out his g-tube last night, and restraints were re-applied. OBJECTIVE: Vital Signs Period Temp Pulse Resp BP Sys/Clay Pulse Ox Last 24 Hr 97.5 F-98.8 F 70-98 20-22 125-165/63-98 99-99 GENERAL: Awake, alert, NAD. NECK: Incision C/D/I. Trach tube in place. LUNGS: Breath sounds equal, clear to auscultation bilaterally, no accessory muscle use. HEART: Regular rate and rhythm, S1, S2 without murmur, rub or gallop. ABDOMEN: Soft, nontender, nondistended, normoactive bowel sounds. G-tube in place. EXTREMITIES: 2+ pulses sheree, warm, well-perfused, no edema. SKIN: Warm, dry, normal turgor, no rashes. Active Medications Generic Name Dose Route Start Last Admin Trade Name Freq PRN Reason Stop Dose Admin Acetylcysteine 600 mg 03/10/17 06:00 03/19/17 06:31 Mucomyst 20 Oral / Inh Use Only* NEB 600 mg TIDR JUNIOR Administration Albuterol Sulfate 1 amp 03/05/17 19:48 03/17/17 22:23 Ventolin 0.5% - NEB 1 amp Q4H PRN Administration SHORT OF BREATH/WHEEZING Albuterol Sulfate 1 amp 03/08/17 14:34 03/19/17 06:31 Ventolin 0.083% Nebulizer Soln - NEB 1 amp Q6H PRN Administration WHEEZING Allopurinol 100 mg 03/10/17 12:05 03/19/17 11:08 Zyloprim - PO 100 mg DAILY JUNIOR Administration Amlodipine Besylate 10 mg 03/10/17 12:05 03/19/17 11:08 Norvasc - PO 10 mg DAILY JUNIOR Administration Aspirin 81 mg 03/10/17 12:05 03/19/17 11:08 Asa - PO 81 mg DAILY JUNIOR Administration Bacitracin 1 applic 03/10/17 10:00 03/18/17 23:01 Bacitracin - TP 1 applic BID JUNIOR Administration Chlordiazepoxide HCl 25 mg 03/19/17 22:00 Librium - PO HS JUNIOR Chlordiazepoxide HCl 25 mg 03/19/17 08:24 Librium - PO Q6H PRN AGITATION Folic Acid 1 mg 03/10/17 10:00 03/19/17 11:08 Folic Acid - PO 1 mg DAILY JUNIOR Administration Gabapentin 400 mg 03/19/17 08:22 Neurontin - PO TID JUNIOR Heparin Sodium (Porcine) 5,000 unit 03/10/17 06:00 03/19/17 05:27 Heparin - SQ 5,000 unit TID JUNIOR Administration Ibuprofen 400 mg 03/11/17 20:55 03/17/17 10:55 Motrin - PO 400 mg Q6H PRN Administration PAIN Melatonin 5 mg 03/18/17 23:03 03/18/17 23:13 Melatonin PO 5 mg HS PRN Administration INSOMNIA Metoprolol Tartrate 25 mg 03/10/17 10:00 03/19/17 11:09 Lopressor - PO 25 mg BID JUNIOR Administration Multi-Ingredient Lotion 1 applic 03/09/17 15:03 Eucerin (Large Jar) - TP DAILY PRN DRY SKIN Multi-Ingredient Ointment 1 applic 03/07/17 22:00 03/18/17 21:27 Zinc Oxide TP 1 applic BID JUNIOR Administration Multivitamins/Minerals/Vitamin C 1 tab 03/10/17 10:00 03/18/17 12:05 Tab-A-Vit - PO 1 tab DAILY JUNIOR Administration Quetiapine Fumarate 25 mg 03/10/17 22:00 03/18/17 21:26 Seroquel - PO 25 mg HS JUNIOR Administration Sertraline HCl 100 mg 03/18/17 22:00 03/19/17 11:08 Zoloft - PO 100 mg BID JUNIOR Administration Sodium Chloride 2 spray 03/09/17 23:11 03/18/17 12:13 [place] Nasal [place] - NS 2 sprays BID PRN Administration NASAL CONGESTION Thiamine HCl 100 mg 03/16/17 10:00 03/19/17 11:08 Vitamin B1 - PO 100 mg DAILY JUNIOR Administration ASSESSMENT/PLAN: 56yo M with PMH of nicotine dependence, Right lung CA, CAD with 2 stents, htn, hld, gout, presented with worsening cough and sputum production and admitted to med-surg for lung resection, 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 # agitation - mental status improved - continue 1:1 and restraints - Librium regimen adjusted by Dr. Branch -> 25mg standing at HS and 25mg q6hr prn - Seroquel changed to Seroquel Xr 100mg at HS - Neurontin increased to 400mg TID # acute hypoxic respiratory failure - resolved, trach in place - continue mucomyst with albuterol nebs - spoke with Dr. Lucero -> current trach size is appropriate, as a wide trach is shorter in length and will not necessarily stay in place any better. Keep trach collar tight/secure to neck. 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 Gilmore as outpatient # FEN - Fluids: encourage po - Electolytes: wnl, continue to monitor. - Nutrition: soft diet # Prophylaxis - DVT ppx with Heparin 5,000U SQ TID - deconditioning ppx with PT and Chest PT Visit type - Emergency Visit Emergency Visit: Yes ED Registration Date: 02/11/17 Care time: The patient presented to the Emergency Department on the above date and was hospitalized for further evaluation of their emergent condition. - New Patient This patient is new to me today: No - Critical Care Critical Care patient: No
--- NOTE | 2017-03-19 13:19 | PN ---
Progress Note (short form) - Note Progress Note: PULMONARY Alert, some confusion. Last Vital Signs Temp Pulse Resp BP Pulse Ox 98.7 F 70 20 125/84 99 03/19/17 06:00 03/19/17 09:00 03/19/17 06:00 03/19/17 06:00 03/19/17 09:00 Gen: less agitated Heart: RRR Lung: decreased breath sounds at the bases Abd: soft, nontender Ext: no edema CBC, BMP 03/16/17 08:00 03/17/17 07:15 Active Medications Acetylcysteine (Mucomyst 20 Oral / Inh Use Only*) 600 mg NEB TIDR [facility] Last Admin: 03/19/17 06:31 Dose: 600 mg Albuterol Sulfate (Ventolin 0.5% -) 1 amp NEB Q4H PRN PRN Reason: SHORT OF BREATH/WHEEZING Last Admin: 03/17/17 22:23 Dose: 1 amp Albuterol Sulfate (Ventolin 0.083% Nebulizer Soln -) 1 amp NEB Q6H PRN PRN Reason: WHEEZING Last Admin: 03/19/17 06:31 Dose: 1 amp Allopurinol (Zyloprim -) 100 mg PO DAILY [facility] Last Admin: 03/19/17 11:08 Dose: 100 mg Amlodipine Besylate (Norvasc -) 10 mg PO DAILY [facility] Last Admin: 03/19/17 11:08 Dose: 10 mg Aspirin (Asa -) 81 mg PO DAILY [facility] Last Admin: 03/19/17 11:08 Dose: 81 mg Bacitracin (Bacitracin -) 1 applic TP BID [facility] Last Admin: 03/18/17 23:01 Dose: 1 applic Chlordiazepoxide HCl (Librium -) 25 mg PO HS [facility] Chlordiazepoxide HCl (Librium -) 25 mg PO Q6H PRN PRN Reason: AGITATION Folic Acid (Folic Acid -) 1 mg PO DAILY [facility] Last Admin: 03/19/17 11:08 Dose: 1 mg Gabapentin (Neurontin -) 400 mg PO TID [facility] Heparin Sodium (Porcine) (Heparin -) 5,000 unit SQ TID [facility] Last Admin: 03/19/17 05:27 Dose: 5,000 unit Ibuprofen (Motrin -) 400 mg PO Q6H PRN PRN Reason: PAIN Last Admin: 03/17/17 10:55 Dose: 400 mg Metoprolol Tartrate (Lopressor -) 25 mg PO BID [facility] Last Admin: 03/19/17 11:09 Dose: 25 mg Multi-Ingredient Lotion (Eucerin (Large Jar) -) 1 applic TP DAILY PRN PRN Reason: DRY SKIN Multi-Ingredient Ointment (Zinc Oxide) 1 applic TP BID [facility] Last Admin: 03/18/17 21:27 Dose: 1 applic Multivitamins/Minerals/Vitamin C (Tab-A-Vit -) 1 tab PO DAILY [facility] Last Admin: 03/18/17 12:05 Dose: 1 tab Quetiapine Fumarate (Seroquel Xr -) 100 mg PO HS@1999 [facility] Sertraline HCl (Zoloft -) 100 mg PO BID [facility] Last Admin: 03/19/17 11:08 Dose: 100 mg Sodium Chloride ([place] Nasal [place] -) 2 spray NS BID PRN PRN Reason: NASAL CONGESTION Last Admin: 03/18/17 12:13 Dose: 2 sprays Thiamine HCl (Vitamin B1 -) 100 mg PO DAILY [facility] Last Admin: 03/19/17 11:08 Dose: 100 mg A/P NSCLC - Adenocarcinoma s/p R VATS/Wedge Resection/CT placement now removed 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 - RT per rad onc
[2017-03-19] MEDS: ALBUTEROL SO4 0.5 % INH SOLN 2.5 MG/0.5 ML VIAL.NEB. NEB PRN (13:47)
[2017-03-19] MEDS: GABAPENTIN 400 MG CAPSULE (FP) PO SCH ×2 (15:00→23:16)
--- NOTE | 2017-03-19 15:54 | PN ---
Teaching Attending Note Name of Resident: Gloria Zaldivar ATTENDING PHYSICIAN STATEMENT I saw and evaluated the patient. I reviewed the resident's note and discussed the case with the resident. I agree with the resident's findings and plan as documented. SUBJECTIVE: No fever or chills . denies any pain. agitated last night OBJECTIVE: NAD,awake, smiling . neck with well healing scar. trach collar on . CV: RRR Lungs: clear bilaterally Ext: R anterior thigh wounds with clean dressings . ABd: soft, NT, ND , PEG in place with minimal erythema ASSESSMENT AND PLAN: 56 y/o gentleman with h/o Nicotine dependence, HTN, CAD s/p Stenting , hyperlipidemia and recently diagnosed R lung adenocarcinoma who presented for pulmonary resection. 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 2- Acute delirium. improved during the day but still problematic at night . - cont librium standing at HS and PRN during the day - increase seroquel to 100 xr , if tolerated can increase to home dose 3- Laryngeal SCC s/p larynegectomy, with flap reconstruction - for tracheo-esophageal puncture on Thursday - RAdiation treatment to be determined - Cont Neurontin 4- Nutrition: - cont diet - calori counting 5- HTN -cont norvasc and Metoprolol. 6- CAD: aspirin DVT px with heparin Placement is an issue due to continued agitation at night
[2017-03-19] MEDS ORDERED: PT OWN MED DRAWER 7, Y5N ONE ×2 (18:14→21:31)
[2017-03-19] MEDS: chlordiazePOXIDE HCL 25 MG CAPSULE PO SCH (23:16)
[2017-03-20] MEDS: HEPARIN NA (PORCINE) 5,000 UNITS/ML 1ML VIAL SQ SCH ×3 (06:45→21:26)
[2017-03-20] MEDS: GABAPENTIN 400 MG CAPSULE (FP) PO SCH ×3 (06:46→21:25)
[2017-03-20] MEDS: ACETYLCYSTEINE 20% 200MG/ML 4 ML VIAL *FOR ORAL / INH USE ONLY NEB SCH ×3 (06:52→22:42)
[2017-03-20] MEDS: ALBUTEROL SO4 0.083% IH SOL 2.5 MG/3 ML VIAL.NEB. NEB PRN ×3 (06:52→22:42)
[2017-03-20 07:00] LABS: MCH 30.5 pg (25.7-33.7); MCHC 33.6 g/dl (32.0-35.9); MEAN CELL VOLUME 90.7 fl (80-96); MEAN PLT VOLUME 10.2 fl (7.5-11.1); PLATELET COUNT 195 K/MM3 (134-434); RDW 13.6 % (11.9-15.9); WHITE BLOOD COUNT 7.6 K/mm3 (4.0-10.0)
[2017-03-20 07:11] LABS: CALCIUM 8.5 mg/dL (8.5-10.1)
[2017-03-20 07:20] LABS: ANION GAP 6 (8-16); CO2 28 mmol/L (21-32); FERRITIN 157.666 ng/ml (16.4-293.9); GLUCOSE,RANDOM 111 mg/dL (74-106); MAGNESIUM 1.9 mg/dL (1.8-2.4); PHOSPHOROUS 4.8 mg/dL (2.5-4.9)
[2017-03-20] MEDS: THIAMINE HCL 100 MG TABLET (FP) PO SCH (11:04)
[2017-03-20] MEDS: SERTRALINE HCL 50 MG TABLET (FP) PO SCH ×2 (11:05→21:25)
[2017-03-20] MEDS: METOPROLOL TARTRATE 25 MG TABLET (FP) PO SCH ×2 (11:05→21:25)
[2017-03-20] MEDS: ASPIRIN 81 MG CHEWABLE TABLETS PO SCH (11:05)
[2017-03-20] MEDS: FOLIC ACID 1 MG TABLET (FP) PO SCH (11:05)
[2017-03-20] MEDS: ALLOPURINOL 100 MG TABLET (FP) PO SCH (11:05)
[2017-03-20] MEDS: amLODIPine BESYLATE 10 MG TABLET (FP) PO SCH (11:05)
[2017-03-20] MEDS: MULTIVITAMINS (DAILY MVI) TABLET (FP) PO SCH (11:05)
[2017-03-20] MEDS: BACITRACIN 15 GM TUBE TOPICAL OINTMENT TP SCH ×2 (11:50→21:24)
[2017-03-20] MEDS: ZINC OXIDE 20% TOPICAL OINTMENT 30 GM TUBE TP SCH ×2 (11:50→21:26)
--- NOTE | 2017-03-20 13:29 | PN ---
Physical Exam: SUBJECTIVE: Patient seen and examined. resting comfortably in bed. as per 1:1 pt was kicking for hours in bed and agitated at night OBJECTIVE: Vital Signs Period Temp Pulse Resp BP Sys/Clay Pulse Ox Last 24 Hr 97.6 F-99.5 F 69-84 18-20 122-145/61-82 98-99 GENERAL: NAD, quit ENT: eomi, junior NECK: trach collar tightly in place, scant white mucus at tip, dressing C/D/I LUNGS: CTAB, quiet at bases HEART: rrr, S1, S2 without murmur, rub or gallop. ABDOMEN: Soft, nontender, nondistended, normoactive bowel sounds. G-tube in place without surrounding erythema or discharge. EXTREMITIES: 2+ radial and DP, pulses sheree, warm, well-perfused, no edema. b/l thigh surgical sites without surrounding erythema, skin is well healing Laboratory Results - last 24 hr 03/20/17 03/20/17 06:25 06:25 WBC 7.6 RBC 3.54 L Hgb 10.8 L Hct 32.1 L MCV 90.7 MCH 30.5 MCHC 33.6 RDW 13.6 Plt Count 195 MPV 10.2 Sodium 138 Potassium 3.9 Chloride 104 Carbon Dioxide 28 Anion Gap 6 L BUN 10 D Creatinine 1.0 Random Glucose 111 H Calcium 8.5 Phosphorus 4.8 D Magnesium 1.9 Ferritin 157.666 Vitamin B12 469 Serum Folate 27 H Active Medications Acetylcysteine (Mucomyst 20 Oral / Inh Use Only*) 600 mg NEB TIDR [facility] Last Admin: 03/20/17 14:05 Dose: 600 mg Albuterol Sulfate (Ventolin 0.5% -) 1 amp NEB Q4H PRN PRN Reason: SHORT OF BREATH/WHEEZING Last Admin: 03/19/17 13:47 Dose: 1 amp Albuterol Sulfate (Ventolin 0.083% Nebulizer Soln -) 1 amp NEB Q6H PRN PRN Reason: WHEEZING Last Admin: 03/20/17 14:05 Dose: 1 amp Allopurinol (Zyloprim -) 100 mg PO DAILY [facility] Last Admin: 03/20/17 11:05 Dose: 100 mg Amlodipine Besylate (Norvasc -) 10 mg PO DAILY [facility] Last Admin: 03/20/17 11:05 Dose: 10 mg Aspirin (Asa -) 81 mg PO DAILY [facility] Last Admin: 03/20/17 11:05 Dose: 81 mg Bacitracin (Bacitracin -) 1 applic TP BID [facility] Last Admin: 03/20/17 11:50 Dose: 1 applic Chlordiazepoxide HCl (Librium -) 25 mg PO HS [facility] Last Admin: 03/19/17 23:16 Dose: 25 mg Chlordiazepoxide HCl (Librium -) 25 mg PO Q6H PRN PRN Reason: AGITATION Folic Acid (Folic Acid -) 1 mg PO DAILY [facility] Last Admin: 03/20/17 11:05 Dose: 1 mg Gabapentin (Neurontin -) 400 mg PO TID [facility] Last Admin: 03/20/17 15:28 Dose: 400 mg Heparin Sodium (Porcine) (Heparin -) 5,000 unit SQ TID [facility] Last Admin: 03/20/17 15:28 Dose: 5,000 unit Ibuprofen (Motrin -) 400 mg PO Q6H PRN PRN Reason: PAIN Last Admin: 03/17/17 10:55 Dose: 400 mg Metoprolol Tartrate (Lopressor -) 25 mg PO BID [facility] Last Admin: 03/20/17 11:05 Dose: 25 mg Multi-Ingredient Lotion (Eucerin (Large Jar) -) 1 applic TP DAILY PRN PRN Reason: DRY SKIN Multi-Ingredient Ointment (Zinc Oxide) 1 applic TP BID [facility] Last Admin: 03/20/17 11:50 Dose: 1 applic Multivitamins/Minerals/Vitamin C (Tab-A-Vit -) 1 tab PO DAILY [facility] Last Admin: 03/20/17 11:05 Dose: 1 tab Quetiapine Fumarate (Seroquel Xr -) 300 mg PO HS@1999 [facility] Sertraline HCl (Zoloft -) 100 mg PO BID [facility] Last Admin: 03/20/17 11:05 Dose: 100 mg Sodium Chloride ([place] Nasal [place] -) 2 spray NS BID PRN PRN Reason: NASAL CONGESTION Last Admin: 03/18/17 12:13 Dose: 2 sprays Thiamine HCl (Vitamin B1 -) 100 mg PO DAILY [facility] Last Admin: 03/20/17 11:04 Dose: 100 mg ASSESSMENT/PLAN: 56 yr old man found to have right lung CA, HTN, HLD, gout, hx of CAD with 2 stents, s/p laryngectomy with left anterolateral thigh flap pharyngeal reconstruction on 02/20/17, 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 # Night time agitation - during AM hours patient is calm and cooperative, however at night has been having continue episodes of agitation endangering himself by trying to pull on his trach and his g-tube. - continue 1:1 and restraints - Librium regimen : 25mg standing at HS and 25mg q6hr prn - change to Seroquel Xr 300mg at HS today as per his home dose - zoloft 100mg po BID - Neurontin 400mg TID # laryngectomy #POD 28 - Motrin q6hr prn for pain - suction q3-4hrs and prn - O2 continous via trach collar + chest PT to prevent congestion - pt will require 6-7 weeks of daily radiation therapy as outpatient, Dr. Guardado consulted, however due to patient's agitation unable to remove 1:1 observation and transfer patient to rehab #Nicotine dependence, unable to provide nicotine RT due to vasoconstrictive affect which may delay healing of skin grafts #hx of ETOH abuse - on librium, continue thiamine #Nutrition: soft diet, calorie counting in place to monitor for adequate po, patient has been loosing weight since admission. chronic conditions: # HTN -stable - continue Norvasc and Lopressor # CAD s/p 2 stents - ASA 81mg # gout - no acute flares - Allopurinol # 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 Gilmore as outpatient # DVT ppx with Heparin 5,000U SQ TID # deconditioning ppx with PT #Dispo: rehab transfer pending behavioral issues Visit type - Emergency Visit Emergency Visit: No - New Patient This patient is new to me today: Yes Date on this admission: 03/20/17 - Critical Care Critical Care patient: No - Discharge Referral Referred to [facility] Med P.C.: No
--- NOTE | 2017-03-20 13:42 | PN ---
Progress Note, Physician History of Present Illness: pulmonary awake,nad,less congestion - Current Medication List Current Medications: Active Medications Acetylcysteine (Mucomyst 20 Oral / Inh Use Only*) 600 mg NEB TIDR [facility] Last Admin: 03/20/17 06:52 Dose: 600 mg Albuterol Sulfate (Ventolin 0.5% -) 1 amp NEB Q4H PRN PRN Reason: SHORT OF BREATH/WHEEZING Last Admin: 03/19/17 13:47 Dose: 1 amp Albuterol Sulfate (Ventolin 0.083% Nebulizer Soln -) 1 amp NEB Q6H PRN PRN Reason: WHEEZING Last Admin: 03/20/17 06:52 Dose: 1 amp Allopurinol (Zyloprim -) 100 mg PO DAILY [facility] Last Admin: 03/20/17 11:05 Dose: 100 mg Amlodipine Besylate (Norvasc -) 10 mg PO DAILY [facility] Last Admin: 03/20/17 11:05 Dose: 10 mg Aspirin (Asa -) 81 mg PO DAILY [facility] Last Admin: 03/20/17 11:05 Dose: 81 mg Bacitracin (Bacitracin -) 1 applic TP BID [facility] Last Admin: 03/20/17 11:50 Dose: 1 applic Chlordiazepoxide HCl (Librium -) 25 mg PO HS [facility] Last Admin: 03/19/17 23:16 Dose: 25 mg Chlordiazepoxide HCl (Librium -) 25 mg PO Q6H PRN PRN Reason: AGITATION Folic Acid (Folic Acid -) 1 mg PO DAILY [facility] Last Admin: 03/20/17 11:05 Dose: 1 mg Gabapentin (Neurontin -) 400 mg PO TID [facility] Last Admin: 03/20/17 06:46 Dose: 400 mg Heparin Sodium (Porcine) (Heparin -) 5,000 unit SQ TID [facility] Last Admin: 03/20/17 06:45 Dose: 5,000 unit Ibuprofen (Motrin -) 400 mg PO Q6H PRN PRN Reason: PAIN Last Admin: 03/17/17 10:55 Dose: 400 mg Metoprolol Tartrate (Lopressor -) 25 mg PO BID [facility] Last Admin: 03/20/17 11:05 Dose: 25 mg Multi-Ingredient Lotion (Eucerin (Large Jar) -) 1 applic TP DAILY PRN PRN Reason: DRY SKIN Multi-Ingredient Ointment (Zinc Oxide) 1 applic TP BID [facility] Last Admin: 03/20/17 11:50 Dose: 1 applic Multivitamins/Minerals/Vitamin C (Tab-A-Vit -) 1 tab PO DAILY [facility] Last Admin: 03/20/17 11:05 Dose: 1 tab Quetiapine Fumarate (Seroquel Xr -) 100 mg PO HS@1999 [facility] Last Admin: 03/19/17 23:15 Dose: 100 mg Sertraline HCl (Zoloft -) 100 mg PO BID [facility] Last Admin: 03/20/17 11:05 Dose: 100 mg Sodium Chloride ([place] Nasal [place] -) 2 spray NS BID PRN PRN Reason: NASAL CONGESTION Last Admin: 03/18/17 12:13 Dose: 2 sprays Thiamine HCl (Vitamin B1 -) 100 mg PO DAILY [facility] Last Admin: 03/20/17 11:04 Dose: 100 mg - Objective Vital Signs: Vital Signs Temperature 98.2 F 03/20/17 06:00 Pulse Rate 69 03/20/17 09:35 Respiratory Rate 18 03/20/17 06:00 Blood Pressure 122/61 03/20/17 06:00 O2 Sat by Pulse Oximetry (%) 98 03/20/17 09:35 Constitutional: Yes: Well Nourished, Calm Eyes: Yes: WNL HENT: Yes: WNL Neck: Yes: Supple (trach) Cardiovascular: Yes: Regular Rate and Rhythm, S1, S2 Respiratory: Yes: Rhonchi (few rhonchi) Gastrointestinal: Yes: Normal Bowel Sounds, Soft Extremities: Yes: WNL Edema: No Labs: CBC, BMP 03/20/17 06:25 03/20/17 06:25 INR, PTT INR 0.98 (0.82-1.09) 02/16/17 05:35 Problem List - Problems (1) Alcohol dependence Code(s): F10.20 - ALCOHOL DEPENDENCE, UNCOMPLICATED Qualifiers: Substance use status: with intoxication Complication of substance-induced condition: with unspecified complication Qualified Code(s): F10.229 - Alcohol dependence with intoxication, unspecified (2) Alcohol intoxication Code(s): F10.929 - ALCOHOL USE, UNSPECIFIED WITH INTOXICATION, UNSPECIFIED Qualifiers: Complication of substance-induced condition: with unspecified complication Qualified Code(s): F10.929 - Alcohol use, unspecified with intoxication, unspecified (3) Cough Code(s): R05 - COUGH (5) Lung cancer Code(s): C34.90 - MALIGNANT NEOPLASM OF UNSP PART OF UNSP BRONCHUS OR LUNG Qualifiers: Laterality: unspecified laterality Lung location: overlapping sites Qualified Code(s): C34.80 - Malignant neoplasm of overlapping sites of unspecified bronchus and lung (6) Metastatic disease Code(s): C79.9 - SECONDARY MALIGNANT NEOPLASM OF UNSPECIFIED SITE (7) Nicotine dependence Code(s): F17.200 - NICOTINE DEPENDENCE, UNSPECIFIED, UNCOMPLICATED (8) Laryngeal squamous cell carcinoma Code(s): C32.9 - MALIGNANT NEOPLASM OF L[place], UNSPECIFIED Assessment/Plan ASSESSMENT AND PLAN: NSCLC - Adenocarcinoma s/p R VATS/Wedge Resection/CT placement now removed 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
--- NOTE | 2017-03-20 14:54 | PN ---
Progress Note (short form) - Note Progress Note: Radiation Oncology Slow recovery, MS waxes and wanes. Surgical wounds healing well. Discussed with Dr. Bledsoe. Ideally patient will benefit from postop RT/chemo to reduce chance of recurrence. Social situation and alcohol addiction/recovery are problematic. May need to consider placement to SNF where he can receive outpatient RT daily for 6 weeks. RT will depend on further recovery ability to cooperate.
--- NOTE | 2017-03-20 17:52 | PN ---
Progress Note (short form) - Note Progress Note: Patient seen and examined Remains agitated Often has emesis post suctioning Has pulled out trach tube in past in view of waxing mental status . Last Vital Signs Temp Pulse Resp BP Pulse Ox 99.0 F 77 18 119/76 98 03/20/17 14:52 03/20/17 14:52 03/20/17 06:00 03/20/17 14:52 03/20/17 09:35 HEENT:NO ICTERUS Oropharynx: TRACH COLLAR Cor: RSR, No murmurs, No gallops Lungs: DIFFUSE RHONCHI , ANTERIORLY AND POSTERIORLY Abd: Soft, Normal bowel sounds, No organomegaly Ext:No significant edema Skin: No rashes, Integument intact CBC, BMP 03/20/17 06:25 03/20/17 06:25 Current Medications Generic Name Dose Route Start Last Admin Trade Name Freq PRN Reason Stop Dose Admin Acetylcysteine 600 mg 03/10/17 06:00 03/20/17 14:05 Mucomyst 20 Oral / Inh Use Only* NEB 600 mg TIDR JUNIOR Administration Albuterol Sulfate 1 amp 03/05/17 19:48 03/19/17 13:47 Ventolin 0.5% - NEB 1 amp Q4H PRN Administration SHORT OF BREATH/WHEEZING Albuterol Sulfate 1 amp 03/08/17 14:34 03/20/17 14:05 Ventolin 0.083% Nebulizer Soln - NEB 1 amp Q6H PRN Administration WHEEZING Allopurinol 100 mg 03/10/17 12:05 03/20/17 11:05 Zyloprim - PO 100 mg DAILY JUNIOR Administration Amlodipine Besylate 10 mg 03/10/17 12:05 03/20/17 11:05 Norvasc - PO 10 mg DAILY JUNIOR Administration Aspirin 81 mg 03/10/17 12:05 03/20/17 11:05 Asa - PO 81 mg DAILY JUNIOR Administration Bacitracin 1 applic 03/10/17 10:00 03/20/17 11:50 Bacitracin - TP 1 applic BID JUNIOR Administration Chlordiazepoxide HCl 25 mg 03/19/17 22:00 03/19/17 23:16 Librium - PO 25 mg HS JUNIOR Administration Chlordiazepoxide HCl 25 mg 03/19/17 08:24 Librium - PO Q6H PRN AGITATION Folic Acid 1 mg 03/10/17 10:00 03/20/17 11:05 Folic Acid - PO 1 mg DAILY JUNIOR Administration Gabapentin 400 mg 03/19/17 14:00 03/20/17 15:28 Neurontin - PO 400 mg TID JUNIOR Administration Heparin Sodium (Porcine) 5,000 unit 03/10/17 06:00 03/20/17 15:28 Heparin - SQ 5,000 unit TID JUNIOR Administration Ibuprofen 400 mg 03/11/17 20:55 03/17/17 10:55 Motrin - PO 400 mg Q6H PRN Administration PAIN Metoprolol Tartrate 25 mg 03/10/17 10:00 03/20/17 11:05 Lopressor - PO 25 mg BID JUNIOR Administration Multi-Ingredient Lotion 1 applic 03/09/17 15:03 Eucerin (Large Jar) - TP DAILY PRN DRY SKIN Multi-Ingredient Ointment 1 applic 03/07/17 22:00 03/20/17 11:50 Zinc Oxide TP 1 applic BID JUNIOR Administration Multivitamins/Minerals/Vitamin C 1 tab 03/10/17 10:00 03/20/17 11:05 Tab-A-Vit - PO 1 tab DAILY JUNIOR Administration Quetiapine Fumarate 300 mg 03/20/17 20:00 Seroquel Xr - PO HS@2000 JUNIOR Sertraline HCl 100 mg 03/18/17 22:00 03/20/17 11:05 Zoloft - PO 100 mg BID JUNIOR Administration Sodium Chloride 2 spray 03/09/17 23:11 03/18/17 12:13 [place] Nasal [place] - NS 2 sprays BID PRN Administration NASAL CONGESTION Thiamine HCl 100 mg 03/16/17 10:00 03/20/17 11:04 Vitamin B1 - PO 100 mg DAILY JUNIOR Administration IMPRSSION: STILL PROBLEMATIC-- IN VIEW OF MENTAL STATUS WAXING AND WANING, AGITATION, IN CURRENT STATE, IT WOULD BE DIFFICULT TO PROCEED WITH ANY SYSTEMIC CHEMOTHERAPY. RT MAY ALSO BE PROBLEMATIC IN VIEW OF NEED FOR COOPERATION WILL CONTINUE TO MONITOR AND MAKE DECISIONS RE POST SURGICAL THERAPY IN FUTURE.
--- NOTE | 2017-03-20 17:52 | PN ---
Teaching Attending Note Name of Resident: Glenis Gaviria ATTENDING PHYSICIAN STATEMENT I saw and evaluated the patient. I reviewed the resident's note and discussed the case with the resident. I agree with the resident's findings and plan as documented. SUBJECTIVE: no fever or chills. cont to be agitated at night but less than before OBJECTIVE: NAD,awake, cooperative neck with well healing scar. trach collar on . CV: RRR Lungs: clear bilaterally Ext: R anterior thigh wounds with clean dressings . L anterior thigh wound with small amount of discharge on gauze. R anterior thigh wound with no discharge ABd: soft, NT, ND , PEG in place with minimal erythema ASSESSMENT AND PLAN: 56 y/o gentleman with h/o Nicotine dependence, HTN, CAD s/p Stenting , hyperlipidemia and recently diagnosed R lung adenocarcinoma who presented for pulmonary resection. 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 improved during the day but still problematic at night . - cont librium standing at HS and PRN during the day - increase seroquel to 300 xr , his home dose 3- Laryngeal SCC s/p larynegectomy, with flap reconstruction - for tracheo-esophageal puncture on Thursday - Possible RT after placement - Cont Neurontin 4- Nutrition: - cont diet 5- HTN -cont norvasc and Metoprolol. 6- CAD: aspirin DVT px with heparin
[2017-03-20] MEDS: IBUPROFEN 400 MG TABLET (FP) PO PRN (18:04)
--- NOTE | 2017-03-20 20:29 | HOSP ---
Subjective - Review of Symptoms Subjective: Paged by RN due to EMESIS x2 Chart Reviewed. Pt is 56yo M w/ PMHx of HTN, CAD, HLD with newly diagnosed R lung CA, found to have laryngeal CA, s/p laryngectomy and flap reconstruction. RN stated that after soft feeds, the patient had 2 episodes of NBNB emesis of digested/undigested food. According to RN this is new. Patient had been on soft diet since 03/16. Patient seen and examined. Patient has trach, answers to yes/no questions. States he no longer feels nauseous. No abdominal pain just sitting. No chest pain. No SOB. No fevers/chills VITALS Vital Signs Temperature 99.5 Pulse Rate 87 Respiratory Rate 18 03/20/17 19:00 Blood Pressure 138/92 O2 Sat by Pulse Oximetry (%) 98 03/20/17 09:35 PHYSICAL EXAM: GEN: Awake, alert, communicative. Not in any acute distress. Has trach in-place HEENT: PERRLA, EOMi CV: S1, S2, RRR LUNG: CTABL ABD: Soft, has rader instead of PEG since ?patient removed as per nurse, diffusely uncomfortable to palpation, hyperactive BS A/P - Episode of NBNB emesis occured after feeds. Possible that patient was eating too quickly, however because of the abdominal discomfort on palpation will get a STAT abdominal XR to r/o perforation or obstruction, though does not have acute abdomen on presentation. Patient no longer feels nauseous. STAT EKG ordered to check QTc since last one from 03/16 shows +480. EKG shows NSR 90bpm, no ST or T wave abnormalities. QTc 435. Will prescribe one time Zofran to use if patient becomes nauseous. Will not switch diet since patient has been on soft diet for a couple of days. - Abd XR read arrived. No noticeable bowel obstruction. Unable to assess for free air since scan was below upper edge of liver. Will re-evaluate patient, if cooler tender, will consider getting CXR to r/o free air. Discussed w/ Dr Spicer Visit type - Emergency Visit Emergency Visit: No - New Patient This patient is new to me today: Yes Date on this admission: 03/21/17 - Critical Care Critical Care patient: No
[2017-03-20] MEDS ORDERED: ONDANSETRON 4 MG/2 ML VIAL IVPUSH ONE (20:36)
[2017-03-20] MEDS ORDERED: PT OWN MED DRAWER 7, Y5N ONE (21:08)
[2017-03-20] MEDS: chlordiazePOXIDE HCL 25 MG CAPSULE PO SCH (21:25)
[2017-03-21] MEDS: HEPARIN NA (PORCINE) 5,000 UNITS/ML 1ML VIAL SQ SCH ×3 (05:59→21:37)
[2017-03-21] MEDS: GABAPENTIN 400 MG CAPSULE (FP) PO SCH ×3 (05:59→21:38)
[2017-03-21 06:16] LABS: SERUM IRON 55 ug/dL (38-169); TOTAL IRON BINDING CAPACITY 197 ug/dL (250-450); UIBC 142 ug/dL (111-343)
[2017-03-21] MEDS: ACETYLCYSTEINE 20% 200MG/ML 4 ML VIAL *FOR ORAL / INH USE ONLY NEB SCH ×3 (06:35→22:09)
[2017-03-21] MEDS: ALBUTEROL SO4 0.083% IH SOL 2.5 MG/3 ML VIAL.NEB. NEB PRN (06:35)
--- NOTE | 2017-03-21 09:31 | PN ---
Physical Exam: SUBJECTIVE: Patient seen and examined. laying comfortably in bed, NAD. calm. overnight event: pt had NBNB vomiting of food particles. scratched his left thigh causing bleeding at surgical site. 1:1 observer notes he tried to pull out his trach several times, when she tried to make him stop he became combative. OBJECTIVE: Vital Signs Period Temp Pulse Resp BP Sys/Clay Pulse Ox Last 24 Hr 98.4 F-100.1 F 69-89 18-20 110-147/65-92 98-98 GENERAL: NAD ENT: eomi, junior NECK: trach collar tightly in place, scant white mucus at tip, dressing C/D/I LUNGS: CTAB, no crackles, no wheezes HEART: rrr, S1, S2 without murmur, rub or gallop. ABDOMEN: Soft, nontender, nondistended, normoactive bowel sounds. G-tube in place without surrounding erythema or discharge. EXTREMITIES: 2+ radial and DP, pulses sheree, warm, well-perfused, no edema. b/l thigh surgical sites without surrounding erythema, skin is well healing. left thigh with anterior area with open skin and scant yellow-serous discharge, scant blood. few scattered broken demond at perimeter. Laboratory Results - last 24 hr 03/20/17 03/20/17 06:25 06:25 Iron 55 TIBC 197 L Iron Saturation 28 Vitamin B12 469 Serum Folate 27 H Active Medications Generic Name Dose Route Start Last Admin Trade Name Freq PRN Reason Stop Dose Admin Acetylcysteine 600 mg 03/10/17 06:00 03/21/17 06:35 Mucomyst 20 Oral / Inh Use Only* NEB 600 mg TIDR JUNIOR Administration Albuterol Sulfate 1 amp 03/05/17 19:48 03/19/17 13:47 Ventolin 0.5% - NEB 1 amp Q4H PRN Administration SHORT OF BREATH/WHEEZING Albuterol Sulfate 1 amp 03/08/17 14:34 03/21/17 06:35 Ventolin 0.083% Nebulizer Soln - NEB 1 amp Q6H PRN Administration WHEEZING Allopurinol 100 mg 03/10/17 12:05 03/20/17 11:05 Zyloprim - PO 100 mg DAILY JUNIOR Administration Amlodipine Besylate 10 mg 03/10/17 12:05 03/20/17 11:05 Norvasc - PO 10 mg DAILY JUNIOR Administration Aspirin 81 mg 03/10/17 12:05 03/20/17 11:05 Asa - PO 81 mg DAILY JUNIOR Administration Bacitracin 1 applic 03/10/17 10:00 03/20/17 21:24 Bacitracin - TP 1 applic BID JUNIOR Administration Chlordiazepoxide HCl 25 mg 03/19/17 22:00 03/20/17 21:25 Librium - PO 25 mg HS JUNIOR Administration Chlordiazepoxide HCl 25 mg 03/19/17 08:24 03/21/17 05:59 Librium - PO 25 mg Q6H PRN Administration AGITATION Folic Acid 1 mg 03/10/17 10:00 03/20/17 11:05 Folic Acid - PO 1 mg DAILY JUNIOR Administration Gabapentin 400 mg 03/19/17 14:00 03/21/17 05:59 Neurontin - PO 400 mg TID JUNIOR Administration Heparin Sodium (Porcine) 5,000 unit 03/10/17 06:00 03/21/17 05:59 Heparin - SQ 5,000 unit TID JUNIOR Administration Ibuprofen 400 mg 03/11/17 20:55 03/20/17 18:04 Motrin - PO 400 mg Q6H PRN Administration PAIN Metoprolol Tartrate 25 mg 03/10/17 10:00 03/20/17 21:25 Lopressor - PO 25 mg BID JUNIOR Administration Multi-Ingredient Lotion 1 applic 03/09/17 15:03 Eucerin (Large Jar) - TP DAILY PRN DRY SKIN Multi-Ingredient Ointment 1 applic 03/07/17 22:00 03/20/17 21:26 Zinc Oxide TP 1 applic BID JUNIOR Administration Multivitamins/Minerals/Vitamin C 1 tab 03/10/17 10:00 03/20/17 11:05 Tab-A-Vit - PO 1 tab DAILY JUNIOR Administration Quetiapine Fumarate 300 mg 03/20/17 20:00 03/20/17 21:00 Seroquel Xr - PO 300 mg HS@1999 JUNIOR Administration Ranitidine HCl 150 mg 03/21/17 10:00 Zantac - PO DAILY JUNIOR Sertraline HCl 100 mg 03/18/17 22:00 03/20/17 21:25 Zoloft - PO 100 mg BID JUNIOR Administration Sodium Chloride 2 spray 03/09/17 23:11 03/18/17 12:13 [place] Nasal [place] - NS 2 sprays BID PRN Administration NASAL CONGESTION Thiamine HCl 100 mg 03/16/17 10:00 03/20/17 11:04 Vitamin B1 - PO 100 mg DAILY JUNIOR Administration ASSESSMENT/PLAN: 56 yr old man found to have right lung CA, HTN, HLD, gout, hx of CAD with 2 stents, s/p laryngectomy with left anterolateral thigh flap pharyngeal reconstruction on 02/20/17, 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 #Preop for Thursday for rigid esophagoscopy and tracheoesophageal puncture prosthesis. - coags, cbc, bmp amd type screen for tomorrow morning. #temp 100.3 - r/o infectious cause, u/a pending, cxy without acute infiltrate. - continue monitoring for fevers #vomiting - add zantaz 150mg po daily for possible TA - add miralax 17gm po daily as contrast seen on abdominal xray, no recent contrast given, likely slow motility since patient is mostly in bed on soft diet # Night time agitation - continue 1:1 and restraints - Librium regimen : 25mg standing at HS and 25mg q6hr prn - change to Seroquel Xr 300mg at HS yesterday as per his home dose - zoloft 100mg po BID - Neurontin 400mg TID # laryngectomy #POD 28 - Motrin q6hr prn for pain - suction q3-4hrs and prn - O2 continous via trach collar + chest PT to prevent congestion - pt will require 6-7 weeks of daily radiation therapy as outpatient, Dr. Guardado consulted, however due to patient's agitation unable to remove 1:1 observation and transfer patient to rehab #Nicotine dependence, unable to provide nicotine RT due to vasoconstrictive affect which may delay healing of skin grafts #hx of ETOH abuse - on librium, continue thiamine #Nutrition: soft diet, calorie counting in place to monitor for adequate po, patient has been loosing weight since admission. chronic conditions: # HTN -stable - continue Norvasc and Lopressor # CAD s/p 2 stents - ASA 81mg # gout - no acute flares - Allopurinol # 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 Gilmore as outpatient # DVT ppx with Heparin 5,000U SQ TID # deconditioning ppx with PT #Dispo: rehab transfer pending behavioral issues Visit type - Emergency Visit Emergency Visit: No - New Patient This patient is new to me today: No - Critical Care Critical Care patient: No
[2017-03-21] MEDS: THIAMINE HCL 100 MG TABLET (FP) PO SCH (10:30)
[2017-03-21] MEDS: amLODIPine BESYLATE 10 MG TABLET (FP) PO SCH (10:31)
[2017-03-21] MEDS: METOPROLOL TARTRATE 25 MG TABLET (FP) PO SCH ×2 (10:31→21:38)
[2017-03-21] MEDS: FOLIC ACID 1 MG TABLET (FP) PO SCH (10:31)
[2017-03-21] MEDS: SERTRALINE HCL 50 MG TABLET (FP) PO SCH ×2 (10:31→21:40)
[2017-03-21] MEDS: ALLOPURINOL 100 MG TABLET (FP) PO SCH (10:31)
[2017-03-21] MEDS: RANITIDINE HCL 150 MG TABLET (FP) PO SCH (10:31)
[2017-03-21] MEDS: ASPIRIN 81 MG CHEWABLE TABLETS PO SCH (10:31)
[2017-03-21] MEDS: MULTIVITAMINS (DAILY MVI) TABLET (FP) PO SCH (10:31)
[2017-03-21] MEDS ORDERED: ONDANSETRON *ODT* 4 MG TABLET SL PRN (12:43)
--- NOTE | 2017-03-21 12:56 | PN ---
Progress Note, Physician History of Present Illness: PULMONARY ALERT,NAD,-TACHYPNEA - Current Medication List Current Medications: Active Medications Acetylcysteine (Mucomyst 20 Oral / Inh Use Only*) 600 mg NEB TIDR [facility] Last Admin: 03/21/17 06:35 Dose: 600 mg Albuterol Sulfate (Ventolin 0.5% -) 1 amp NEB Q4H PRN PRN Reason: SHORT OF BREATH/WHEEZING Last Admin: 03/19/17 13:47 Dose: 1 amp Albuterol Sulfate (Ventolin 0.083% Nebulizer Soln -) 1 amp NEB Q6H PRN PRN Reason: WHEEZING Last Admin: 03/21/17 06:35 Dose: 1 amp Allopurinol (Zyloprim -) 100 mg PO DAILY [facility] Last Admin: 03/21/17 10:31 Dose: 100 mg Amlodipine Besylate (Norvasc -) 10 mg PO DAILY [facility] Last Admin: 03/21/17 10:31 Dose: 10 mg Aspirin (Asa -) 81 mg PO DAILY [facility] Last Admin: 03/21/17 10:31 Dose: 81 mg Bacitracin (Bacitracin -) 1 applic TP BID [facility] Last Admin: 03/20/17 21:24 Dose: 1 applic Chlordiazepoxide HCl (Librium -) 25 mg PO HS [facility] Last Admin: 03/20/17 21:25 Dose: 25 mg Folic Acid (Folic Acid -) 1 mg PO DAILY [facility] Last Admin: 03/21/17 10:31 Dose: 1 mg Gabapentin (Neurontin -) 400 mg PO TID [facility] Last Admin: 03/21/17 05:59 Dose: 400 mg Heparin Sodium (Porcine) (Heparin -) 5,000 unit SQ TID [facility] Last Admin: 03/21/17 05:59 Dose: 5,000 unit Ibuprofen (Motrin -) 400 mg PO Q6H PRN PRN Reason: PAIN Last Admin: 03/20/17 18:04 Dose: 400 mg Metoprolol Tartrate (Lopressor -) 25 mg PO BID [facility] Last Admin: 03/21/17 10:31 Dose: 25 mg Multi-Ingredient Lotion (Eucerin (Large Jar) -) 1 applic TP DAILY PRN PRN Reason: DRY SKIN Multi-Ingredient Ointment (Zinc Oxide) 1 applic TP BID [facility] Last Admin: 03/20/17 21:26 Dose: 1 applic Multivitamins/Minerals/Vitamin C (Tab-A-Vit -) 1 tab PO DAILY [facility] Last Admin: 03/21/17 10:31 Dose: 1 tab Ondansetron HCl (Zofran Odt -) 8 mg SL Q8H PRN PRN Reason: NAUSEA AND/OR VOMITING Polyethylene Glycol (Miralax (For Daily Use) -) 17 gm PO BID [facility] Quetiapine Fumarate (Seroquel Xr -) 300 mg PO HS@1999 [facility] Last Admin: 03/20/17 21:00 Dose: 300 mg Ranitidine HCl (Zantac -) 150 mg PO DAILY [facility] Last Admin: 03/21/17 10:31 Dose: 150 mg Sertraline HCl (Zoloft -) 100 mg PO BID [facility] Last Admin: 03/21/17 10:31 Dose: 100 mg Sodium Chloride ([place] Nasal [place] -) 2 spray NS BID PRN PRN Reason: NASAL CONGESTION Last Admin: 03/18/17 12:13 Dose: 2 sprays Thiamine HCl (Vitamin B1 -) 100 mg PO DAILY [facility] Last Admin: 03/21/17 10:30 Dose: 100 mg Zolpidem Tartrate (Ambien -) 10 mg PO HS PRN PRN Reason: INSOMNIA - Objective Vital Signs: Vital Signs Temperature 98.4 F 03/21/17 11:15 Pulse Rate 80 03/21/17 11:11 Respiratory Rate 20 03/21/17 11:11 Blood Pressure 129/79 03/21/17 11:11 O2 Sat by Pulse Oximetry (%) 100 03/21/17 09:40 Constitutional: Yes: Well Nourished, Calm Eyes: Yes: WNL HENT: Yes: WNL Neck: Yes: Supple (TRACH) Cardiovascular: Yes: Regular Rate and Rhythm, S1, S2 Respiratory: Yes: Rhonchi (FEW SCATTERED RHONCHI) Gastrointestinal: Yes: Normal Bowel Sounds, Soft Extremities: Yes: WNL Edema: No Labs: CBC, BMP Problem List - Problems (1) Alcohol dependence Code(s): F10.20 - ALCOHOL DEPENDENCE, UNCOMPLICATED Qualifiers: Substance use status: with intoxication Complication of substance-induced condition: with unspecified complication Qualified Code(s): F10.229 - Alcohol dependence with intoxication, unspecified (2) Alcohol intoxication Code(s): F10.929 - ALCOHOL USE, UNSPECIFIED WITH INTOXICATION, UNSPECIFIED Qualifiers: Complication of substance-induced condition: with unspecified complication Qualified Code(s): F10.929 - Alcohol use, unspecified with intoxication, unspecified (3) Cough Code(s): R05 - COUGH (5) Lung cancer Code(s): C34.90 - MALIGNANT NEOPLASM OF UNSP PART OF UNSP BRONCHUS OR LUNG Qualifiers: Laterality: unspecified laterality Lung location: overlapping sites Qualified Code(s): C34.80 - Malignant neoplasm of overlapping sites of unspecified bronchus and lung (6) Metastatic disease Code(s): C79.9 - SECONDARY MALIGNANT NEOPLASM OF UNSPECIFIED SITE (7) Nicotine dependence Code(s): F17.200 - NICOTINE DEPENDENCE, UNSPECIFIED, UNCOMPLICATED (8) Laryngeal squamous cell carcinoma Code(s): C32.9 - MALIGNANT NEOPLASM OF LARYNX, UNSPECIFIED Assessment/Plan ASSESSMENT AND PLAN: NSCLC - Adenocarcinoma s/p R VATS/Wedge Resection/CT placement now removed 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 HTN CAD Alcohol Abuse/Dependence - nutritional support - monitor lytes - aspiration precautions - DVT prophylaxis - rehab/PT - OOB to chair - tracheal suctioning DR OTTO
[2017-03-21 14:09] LABS: TRANSFERRIN 157 mg/dL (200-370)
[2017-03-21] MEDS ORDERED: POLYETHYLENE GLYCOL 3350 119 GM BTL PO ONE (14:50)
--- NOTE | 2017-03-21 16:27 | PN ---
Teaching Attending Note Name of Resident: Glenis Gaviria ATTENDING PHYSICIAN STATEMENT I saw and evaluated the patient. I reviewed the resident's note and discussed the case with the resident. I agree with the resident's findings and plan as documented. SUBJECTIVE: Low grade fever . agitated over night , and continued to pull on his tubes OBJECTIVE: NAD,awake, cooperative , pleasant neck with well healing scar. trach collar on . CV: RRR Lungs: clear bilaterally Ext: R anterior thigh wounds with clean dressings. L anterior thigh wound with small amount of discharge on gauze. R anterior thigh wound with no discharge ABd: soft, NT, ND , PEG in place with minimal erythema ASSESSMENT AND PLAN: 56 y/o gentleman with h/o Nicotine dependence, HTN, CAD s/p Stenting , hyperlipidemia and recently diagnosed R lung adenocarcinoma who presented for pulmonary resection. 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 cont to happen over night . - cont librium standing at HS and PRN during the day - cont increased dose of seroquel 300 xr 3- Laryngeal SCC s/p larynegectomy, with flap reconstruction - for tracheo-esophageal puncture on Thursday - Possible RT after placement - Cont Neurontin 4- fever : check UA and cxray 5- HTN -cont norvasc and Metoprolol. 6- CAD: aspirin DVT px with heparin
[2017-03-21] MEDS: BACITRACIN 15 GM TUBE TOPICAL OINTMENT TP SCH ×2 (18:59→21:37)
[2017-03-21] MEDS: ZINC OXIDE 20% TOPICAL OINTMENT 30 GM TUBE TP SCH ×2 (19:01→21:38)
[2017-03-21 20:57] LABS: URINE APPEARANCE CLEAR; URINE BILIRUBIN NEGATIVE (NEGATIVE); URINE BLOOD NEGATIVE (NEGATIVE); URINE COLOR LT. YELLOW; URINE GLUCOSE (UA) NEGATIVE (NEGATIVE); URINE KETONE NEGATIVE (NEGATIVE); URINE NITRITE NEGATIVE (NEGATIVE); URINE PROTEIN NEGATIVE (NEGATIVE); URINE UROBILINOGEN 0.2 mg/dL (0.2-1.0)
[2017-03-21] MEDS: ZOLPIDEM TARTRATE 5 MG TABLET PO PRN (21:37)
[2017-03-21] MEDS: chlordiazePOXIDE HCL 25 MG CAPSULE PO SCH (21:37)
[2017-03-21] MEDS ORDERED: POLYETHYLENE GLYCOL 3350 119 GM BTL PO SCH (22:00)
[2017-03-21] MEDS: ALBUTEROL SO4 0.5 % INH SOLN 2.5 MG/0.5 ML VIAL.NEB. NEB PRN (22:09)
[2017-03-21 22:39] LABS: URINE LEUK ESTERASE Negative (NEGATIVE)
[2017-03-22] MEDS: ACETYLCYSTEINE 20% 200MG/ML 4 ML VIAL *FOR ORAL / INH USE ONLY NEB SCH ×3 (06:30→21:55)
[2017-03-22] MEDS: ALBUTEROL SO4 0.5 % INH SOLN 2.5 MG/0.5 ML VIAL.NEB. NEB PRN (06:30)
[2017-03-22] MEDS: HEPARIN NA (PORCINE) 5,000 UNITS/ML 1ML VIAL SQ SCH ×2 (06:31→16:31)
[2017-03-22] MEDS: GABAPENTIN 400 MG CAPSULE (FP) PO SCH ×3 (06:31→22:32)
[2017-03-22] MEDS ORDERED: INSULIN (NOVOLOG) ASPART 100 UNITS/ML 10ML VIAL ONE (06:44)
[2017-03-22 07:00] LABS: MCH 30.2 pg (25.7-33.7); MCHC 33.5 g/dl (32.0-35.9); MEAN CELL VOLUME 90.3 fl (80-96); PLATELET COUNT 201 K/MM3 (134-434); RDW 13.6 % (11.9-15.9); WHITE BLOOD COUNT 8.5 K/mm3 (4.0-10.0)
[2017-03-22 07:23] LABS: ANION GAP 8 (8-16); CALCIUM 8.6 mg/dL (8.5-10.1); CO2 27 mmol/L (21-32); CREATININE 1.1 mg/dL (0.7-1.3); GLUCOSE,RANDOM 104 mg/dL (74-106)
[2017-03-22 07:24] LABS: INR 1.04 (0.82-1.09); PROTHROMBIN TIME (PATIENT) 11.7 SEC (9.98-11.88)
--- NOTE | 2017-03-22 08:35 | EKG ---
Test Reason : Blood Pressure : / mmHG Vent. Rate : 090 BPM Atrial Rate : 090 BPM P-R Int : 162 ms QRS Dur : 082 ms QT Int : 356 ms P-R-T Axes : 035 -25 005 degrees QTc Int : 435 ms POOR DATA QUALITY, INTERPRETATION MAY BE ADVERSELY AFFECTED NORMAL SINUS RHYTHM NORMAL ECG WHEN COMPARED WITH ECG OF 23-FEB-2017 22:26, PREMATURE ATRIAL COMPLEXES ARE NO LONGER PRESENT CRITERIA FOR INFERIOR INFARCT ARE NO LONGER PRESENT ST NO LONGER DEPRESSED IN ANTERIOR LEADS Confirmed by KELSEY CABRERA, BRAD ([id number]) on 03/22/2017 8:35:25 AM Referred By: Confirmed By:BRAD COLE MD
[2017-03-22] MEDS ORDERED: PT OWN MED DRAWER 7, Y5N ONE ×2 (11:11→11:39)
[2017-03-22] MEDS: ASPIRIN 81 MG CHEWABLE TABLETS PO SCH (11:19)
[2017-03-22] MEDS: THIAMINE HCL 100 MG TABLET (FP) PO SCH (11:19)
[2017-03-22] MEDS: ALLOPURINOL 100 MG TABLET (FP) PO SCH (11:19)
[2017-03-22] MEDS: amLODIPine BESYLATE 10 MG TABLET (FP) PO SCH (11:20)
[2017-03-22] MEDS: RANITIDINE HCL 150 MG TABLET (FP) PO SCH (11:20)
[2017-03-22] MEDS: SERTRALINE HCL 50 MG TABLET (FP) PO SCH ×2 (11:20→22:32)
[2017-03-22] MEDS: FOLIC ACID 1 MG TABLET (FP) PO SCH (11:20)
[2017-03-22] MEDS: MULTIVITAMINS (DAILY MVI) TABLET (FP) PO SCH (11:20)
[2017-03-22] MEDS: METOPROLOL TARTRATE 25 MG TABLET (FP) PO SCH ×2 (11:21→22:32)
[2017-03-22] MEDS: ZINC OXIDE 20% TOPICAL OINTMENT 30 GM TUBE TP SCH ×2 (11:21→22:32)
[2017-03-22] MEDS: BACITRACIN 15 GM TUBE TOPICAL OINTMENT TP SCH ×2 (11:30→22:34)
[2017-03-22] MEDS ORDERED: SODIUM PHOSPHATE/NA BIPHOS 133 ML ENEMA PR ONE (11:48)
[2017-03-22] MEDS: ALBUTEROL SO4 0.083% IH SOL 2.5 MG/3 ML VIAL.NEB. NEB PRN ×2 (13:30→21:55)
--- NOTE | 2017-03-22 14:51 | PN ---
Progress Note, Physician History of Present Illness: pulmonary alert,nad,-tachypnea,+ yellow secretions via trach - Current Medication List Current Medications: Active Medications Acetylcysteine (Mucomyst 20 Oral / Inh Use Only*) 600 mg NEB TIDR [facility] [place] Last Admin: 03/22/17 06:30 Dose: 600 mg Albuterol Sulfate (Ventolin 0.5% -) 1 amp NEB Q4H PRN PRN Reason: SHORT OF BREATH/WHEEZING Last Admin: 03/22/17 06:30 Dose: 1 amp Albuterol Sulfate (Ventolin 0.083% Nebulizer Soln -) 1 amp NEB Q6H PRN PRN Reason: WHEEZING Last Admin: 03/21/17 06:35 Dose: 1 amp Allopurinol (Zyloprim -) 100 mg PO DAILY [facility] [place] Last Admin: 03/22/17 11:19 Dose: 100 mg Amlodipine Besylate (Norvasc -) 10 mg PO DAILY [facility] Last Admin: 03/22/17 11:20 Dose: 10 mg Aspirin (Asa -) 81 mg PO DAILY [facility] Last Admin: 03/22/17 11:19 Dose: 81 mg Bacitracin (Bacitracin -) 1 applic TP BID [facility] [place] Last Admin: 03/21/17 21:37 Dose: 1 applic Chlordiazepoxide HCl (Librium -) 25 mg PO HS [facility] [place] Last Admin: 03/21/17 21:37 Dose: 25 mg Folic Acid (Folic Acid -) 1 mg PO DAILY [facility] Last Admin: 03/22/17 11:20 Dose: 1 mg Gabapentin (Neurontin -) 400 mg PO TID [facility] Last Admin: 03/22/17 06:31 Dose: 400 mg Heparin Sodium (Porcine) (Heparin -) 5,000 unit SQ TID [facility] [place] Last Admin: 03/22/17 06:31 Dose: 5,000 unit Ibuprofen (Motrin -) 400 mg PO Q6H PRN PRN Reason: PAIN Last Admin: 03/20/17 18:04 Dose: 400 mg Metoprolol Tartrate (Lopressor -) 25 mg PO BID [facility] Last Admin: 03/22/17 11:21 Dose: 25 mg Multi-Ingredient Lotion (Eucerin (Large Jar) -) 1 applic TP DAILY PRN PRN Reason: DRY SKIN Multi-Ingredient Ointment (Zinc Oxide) 1 applic TP BID [facility] [place] Last Admin: 03/22/17 11:21 Dose: 1 applic Multivitamins/Minerals/Vitamin C (Tab-A-Vit -) 1 tab PO DAILY [facility] Last Admin: 03/22/17 11:20 Dose: 1 tab Ondansetron HCl (Zofran Odt -) 8 mg SL Q8H PRN PRN Reason: NAUSEA AND/OR VOMITING Last Admin: 03/21/17 22:09 Dose: 8 mg Quetiapine Fumarate (Seroquel Xr -) 300 mg PO HS@2000 [facility] Last Admin: 03/21/17 20:45 Dose: 300 mg Ranitidine HCl (Zantac -) 150 mg PO DAILY [facility] Last Admin: 03/22/17 11:20 Dose: 150 mg Sertraline HCl (Zoloft -) 100 mg PO BID [facility] Last Admin: 03/22/17 11:20 Dose: 100 mg Sodium Chloride ([place] Nasal [place] -) 2 spray NS BID PRN PRN Reason: NASAL CONGESTION Last Admin: 03/18/17 12:13 Dose: 2 sprays Thiamine HCl (Vitamin B1 -) 100 mg PO DAILY [facility] Last Admin: 03/22/17 11:19 Dose: 100 mg Zolpidem Tartrate (Ambien -) 10 mg PO HS PRN PRN Reason: INSOMNIA Last Admin: 03/21/17 21:37 Dose: 10 mg - Objective Vital Signs: Vital Signs Temperature 99.7 F H 03/22/17 11:18 Pulse Rate 86 03/22/17 11:18 Respiratory Rate 20 03/22/17 11:18 Blood Pressure 127/61 03/22/17 11:18 O2 Sat by Pulse Oximetry (%) 100 03/21/17 22:12 Constitutional: Yes: Well Nourished, Calm Eyes: Yes: WNL HENT: Yes: WNL Neck: Yes: Supple Cardiovascular: Yes: Regular Rate and Rhythm, S1, S2 Respiratory: Yes: Rhonchi (scattered rhonchi) Gastrointestinal: Yes: Normal Bowel Sounds, Soft Extremities: Yes: WNL Edema: No Labs: CBC, BMP 03/22/17 06:37 03/22/17 06:37 INR, PTT INR 1.04 (0.82-1.09) 03/22/17 06:37 Problem List - Problems (1) Alcohol dependence Code(s): F10.20 - ALCOHOL DEPENDENCE, UNCOMPLICATED Qualifiers: Substance use status: with intoxication Complication of substance-induced condition: with unspecified complication Qualified Code(s): F10.229 - Alcohol dependence with intoxication, unspecified (2) Alcohol intoxication Code(s): F10.929 - ALCOHOL USE, UNSPECIFIED WITH INTOXICATION, UNSPECIFIED Qualifiers: Complication of substance-induced condition: with unspecified complication Qualified Code(s): F10.929 - Alcohol use, unspecified with intoxication, unspecified (3) Cough Code(s): R05 - COUGH (5) Lung cancer Code(s): C34.90 - MALIGNANT NEOPLASM OF UNSP PART OF UNSP BRONCHUS OR LUNG Qualifiers: Laterality: unspecified laterality Lung location: overlapping sites Qualified Code(s): C34.80 - Malignant neoplasm of overlapping sites of unspecified bronchus and lung (6) Metastatic disease Code(s): C79.9 - SECONDARY MALIGNANT NEOPLASM OF UNSPECIFIED SITE (7) Nicotine dependence Code(s): F17.200 - NICOTINE DEPENDENCE, UNSPECIFIED, UNCOMPLICATED (8) Laryngeal squamous cell carcinoma Code(s): C32.9 - MALIGNANT NEOPLASM OF [place], UNSPECIFIED Assessment/Plan ASSESSMENT AND PLAN: NSCLC - Adenocarcinoma s/p R VATS/Wedge Resection/CT placement now removed 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
--- NOTE | 2017-03-22 15:04 | PN ---
Progress Note (short form) - Note Progress Note: Subjective: denies any complaints. per RN was better last night Objective: Vital Signs: Last Vital Signs Temp Pulse Resp BP Pulse Ox 99.7 F H 86 20 127/61 100 03/22/17 11:18 03/22/17 11:18 03/22/17 11:18 03/22/17 11:18 03/21/17 22:12 Laboratory Results - last 24 hr 03/21/17 03/22/17 03/22/17 18:15 06:37 06:37 WBC 8.5 RBC 3.61 L Hgb 10.9 L Hct 32.6 L MCV 90.3 MCH 30.2 MCHC 33.5 RDW 13.6 Plt Count 201 MPV 10.0 PT with INR 11.70 INR 1.04 PTT (Actin FS) 34.0 Sodium Potassium Chloride Carbon Dioxide Anion Gap BUN Creatinine Random Glucose Calcium Urine Color Lt. yellow Urine Appearance Clear Urine pH 6.0 Ur Specific [place] 1.010 Urine Protein Negative Urine Glucose (UA) Negative Urine Ketones Negative Urine Blood Negative Urine Nitrite Negative Urine Bilirubin Negative Urine Urobilinogen 0.2 Ur Leukocyte Esterase Negative Blood Type Antibody Screen 03/22/17 03/22/17 06:37 06:37 WBC RBC Hgb Hct MCV MCH MCHC RDW Plt Count MPV PT with INR INR PTT (Actin FS) Sodium 139 Potassium 4.2 Chloride 104 Carbon Dioxide 27 Anion Gap 8 BUN 11 Creatinine 1.1 Random Glucose 104 Calcium 8.6 Urine Color Urine Appearance Urine pH Ur Specific [place] Urine Protein Urine Glucose (UA) Urine Ketones Urine Blood Urine Nitrite Urine Bilirubin Urine Urobilinogen Ur Leukocyte Esterase Blood Type O POSITIVE Antibody Screen Negative Physical Exam: NAD,awake, cooperative , pleasant . off restraints neck with well healing scar. trach collar on . CV: RRR Lungs: clear bilaterally Ext: R anterior thigh wounds with clean dressings. L anterior thigh wound with small amount of discharge on gauze. R anterior thigh wound with no discharge Abd: soft, NT, ND , PEG in place with minimal erythema ASSESSMENT AND PLAN: 56 y/o gentleman with h/o Nicotine dependence, HTN, CAD s/p Stenting , hyperlipidemia and recently diagnosed R lung adenocarcinoma who presented for pulmonary resection. 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 much imprved after increasing seroquel dose . - cont librium standing at HS and PRN during the day - cont increased dose of seroquel 300 xr 3- Laryngeal SCC s/p larynegectomy, with flap reconstruction - for tracheo-esophageal puncture tomorrow - Make NPO after mid night - Possible RT after placement - Cont Neurontin 4- fever :resolved , cxray and UA don't indicate an infection 5- HTN -cont norvasc and Metoprolol. 6- CAD: aspirin DVT px with heparin Visit type - Emergency Visit Emergency Visit: Yes ED Registration Date: 02/11/17 Care time: The patient presented to the Emergency Department on the above date and was hospitalized for further evaluation of their emergent condition. - New Patient This patient is new to me today: No - Critical Care Critical Care patient: No
[2017-03-22] MEDS: NYSTATIN POWDER 100,000 UNITS/GM - 15 GM TOPICAL POWDER TP SCH (22:31)
[2017-03-22] MEDS: ZOLPIDEM TARTRATE 5 MG TABLET PO PRN (22:32)
[2017-03-22] MEDS: chlordiazePOXIDE HCL 25 MG CAPSULE PO SCH (22:33)
--- NOTE | 2017-03-23 01:13 | RAPID ---
<Corina Polanco - Last Filed: 03/23/17 01:15> Physical Examination Vital Signs: Vital Signs Temperature 99.3 F 03/22/17 18:10 Pulse Rate 72 03/22/17 22:10 Respiratory Rate 18 03/22/17 18:10 Blood Pressure 110/67 03/22/17 18:10 O2 Sat by Pulse Oximetry (%) 98 03/22/17 22:10 Findings/Remarks: Anesthesia called to check Trach Placement Pt. with 1:1 observation, continue Restraints if pt. posing harm to self or others Labs: CBC, BMP 03/22/17 06:37 03/22/17 06:37 <Hugo Weinstein - Last Filed: 03/23/17 01:22> Physical Examination Vital Signs: Rapid response was called by RN for patient pulled out his tracheostomy. Patient seen and examined. lynig comfortably in bed. Patient pillow removed under his neck and neck was extended. Tracheostomy no 8 was placed in one attempt. suction was done by respiratory therapist. Patient gets agitated with restrain but if it happen again we will start him on restrain, For now we will monitor him with one on one. BP 115/67 spo2 98 CO 72 GEN: Awake, alert Chest : BL airentry present, no wheez, no rales. CVS s1s2 normal. Vital Signs Temperature 99.3 F 03/22/17 18:10 Pulse Rate 72 03/22/17 22:10 Respiratory Rate 18 03/22/17 18:10 Blood Pressure 110/67 03/22/17 18:10 O2 Sat by Pulse Oximetry (%) 98 03/22/17 22:10 PLan CXR to confirm his position. IF patientget short of breath, extend his neck to maintain patency of tracheostomy and suction. Anesthesia called to check Trach Placement . Labs: CBC, BMP 03/22/17 06:37 03/22/17 06:37
[2017-03-23] MEDS: ACETYLCYSTEINE 20% 200MG/ML 4 ML VIAL *FOR ORAL / INH USE ONLY NEB SCH ×3 (06:55→21:55)
[2017-03-23] MEDS: ALBUTEROL SO4 0.083% IH SOL 2.5 MG/3 ML VIAL.NEB. NEB PRN ×2 (06:55→21:55)
--- NOTE | 2017-03-23 10:24 | PN ---
Progress Note (short form) - Note Progress Note: Patient seen and examined. Generally in no distress, happy and cooperative. Tolerating diet PO. Wounds CDI, tracheostome well-healed, abdomen soft and nontender, g-tube in place. Planning for tracheoesophageal prosthesis placement today. RBAs explained to patient who agrees to proceed. Needs chemotherapy and radiation to prevent recurrence--try to arrange with [facility] and Drs. Potter/Candis. Ambulate and eat (after OR procedure). Should follow up with me as an outpatient [phone] makes appointments for all of my offices, including [address] [place] [address].
[2017-03-23] MEDS: SODIUM CHLORIDE NASAL SPRAY 44 ML BOTTLE NS PRN (10:52)
[2017-03-23] MEDS: BACITRACIN 15 GM TUBE TOPICAL OINTMENT TP SCH ×2 (10:52→21:49)
[2017-03-23] MEDS: ASPIRIN 81 MG CHEWABLE TABLETS PO SCH (10:52)
[2017-03-23] MEDS: THIAMINE HCL 100 MG TABLET (FP) PO SCH (10:53)
[2017-03-23] MEDS: MULTIVITAMINS (DAILY MVI) TABLET (FP) PO SCH (10:53)
[2017-03-23] MEDS: RANITIDINE HCL 150 MG TABLET (FP) PO SCH (10:53)
[2017-03-23] MEDS: ZINC OXIDE 20% TOPICAL OINTMENT 30 GM TUBE TP SCH ×2 (10:53→21:49)
[2017-03-23] MEDS: NYSTATIN POWDER 100,000 UNITS/GM - 15 GM TOPICAL POWDER TP SCH ×2 (10:54→21:49)
[2017-03-23] MEDS: ALLOPURINOL 100 MG TABLET (FP) PO SCH (10:54)
[2017-03-23] MEDS: FOLIC ACID 1 MG TABLET (FP) PO SCH (10:54)
[2017-03-23] MEDS: SERTRALINE HCL 50 MG TABLET (FP) PO SCH ×2 (10:54→21:49)
[2017-03-23] MEDS: amLODIPine BESYLATE 10 MG TABLET (FP) PO SCH (10:54)
[2017-03-23] MEDS: METOPROLOL TARTRATE 25 MG TABLET (FP) PO SCH ×2 (10:54→21:48)
[2017-03-23] MEDS ORDERED: MIDAZOLAM HCL 2 MG/2 ML SINGLE DOSE VIAL ONE ×2 (11:35)
[2017-03-23] MEDS ORDERED: PROPOFOL 20 ML ONE ×3 (11:35→12:39)
[2017-03-23] MEDS ORDERED: BUPIVACAINE HCL/PF 0.5% (5MG/ML) 10 ML VIAL ONE (11:53)
[2017-03-23] MEDS ORDERED: LIDOCAINE 1%/EPI 1:100000 (20 ML MULTI DOSE VIAL) ONE (11:53)
[2017-03-23] MEDS ORDERED: chlordiazePOXIDE HCL 25 MG CAPSULE PO SCH ×2 (12:00→18:00)
[2017-03-23] MEDS ORDERED: fentaNYL CITRATE 250 MCG/5 ML VIAL ONE (12:34)
[2017-03-23] MEDS ORDERED: DEXAMETHASONE SOD PHOSPHATE 4 MG/1 ML VIAL ONE (12:35)
[2017-03-23] MEDS ORDERED: NEOSTIGMINE METHYLSULFATE 0.5 MG/ML - 10 ML MDV ONE (12:54)
[2017-03-23] MEDS ORDERED: NALOXONE HCL 0.4 MG/ML VIAL ONE (12:59)
--- NOTE | 2017-03-23 13:02 | PN ---
Progress Note (short form) - Note Progress Note: Resting on 50% Trach collar in NAD. Some cough. No acute events documented overnight. Intake & Output 03/20/17 03/21/17 03/22/17 03/23/17 23:59 23:59 23:59 23:59 Intake Total 1250 500 700 0 Output Total 1100 300 Balance 1250 -600 400 0 Last Vital Signs Temp Pulse Resp BP Pulse Ox 98.8 F 72 18 119/76 99 03/23/17 10:57 03/23/17 10:57 03/23/17 10:57 03/23/17 10:57 03/23/17 10:29 Active Medications Acetylcysteine (Mucomyst 20 Oral / Inh Use Only*) 600 mg NEB TIDR [facility] Last Admin: 03/23/17 06:55 Dose: 600 mg Albuterol Sulfate (Ventolin 0.5% -) 1 amp NEB Q4H PRN PRN Reason: SHORT OF BREATH/WHEEZING Last Admin: 03/22/17 06:30 Dose: 1 amp Albuterol Sulfate (Ventolin 0.083% Nebulizer Soln -) 1 amp NEB Q6H PRN PRN Reason: WHEEZING Last Admin: 03/23/17 06:55 Dose: 1 amp Allopurinol (Zyloprim -) 100 mg PO DAILY [facility] Last Admin: 03/23/17 10:54 Dose: Not Given Amlodipine Besylate (Norvasc -) 10 mg PO DAILY [facility] Last Admin: 03/23/17 10:54 Dose: Not Given Aspirin (Asa -) 81 mg PO DAILY [facility] Last Admin: 03/23/17 10:52 Dose: Not Given Bacitracin (Bacitracin -) 1 applic TP BID [facility] Last Admin: 03/23/17 10:52 Dose: 1 applic Chlordiazepoxide HCl (Librium -) 25 mg PO HS [facility] Last Admin: 03/22/17 22:33 Dose: 25 mg Chlordiazepoxide HCl (Librium -) 25 mg PO Q6HPO [facility] Last Admin: 03/23/17 11:27 Dose: Not Given Folic Acid (Folic Acid -) 1 mg PO DAILY [facility] Last Admin: 03/23/17 10:54 Dose: Not Given Gabapentin (Neurontin -) 400 mg PO TID [facility] Last Admin: 03/22/17 22:32 Dose: 400 mg Ibuprofen (Motrin -) 400 mg PO Q6H PRN PRN Reason: PAIN Last Admin: 03/20/17 18:04 Dose: 400 mg Metoprolol Tartrate (Lopressor -) 25 mg PO BID [facility] Last Admin: 03/23/17 10:54 Dose: Not Given Multi-Ingredient Lotion (Eucerin (Large Jar) -) 1 applic TP DAILY PRN PRN Reason: DRY SKIN Multi-Ingredient Ointment (Zinc Oxide) 1 applic TP BID [facility] Last Admin: 03/23/17 10:53 Dose: 1 applic Multivitamins/Minerals/Vitamin C (Tab-A-Vit -) 1 tab PO DAILY [facility] Last Admin: 03/23/17 10:53 Dose: Not Given Nystatin (Nystop Powder -) 1 applic TP BID [facility] Last Admin: 03/23/17 10:54 Dose: Not Given Ondansetron HCl (Zofran Odt -) 8 mg SL Q8H PRN PRN Reason: NAUSEA AND/OR VOMITING Last Admin: 03/21/17 22:09 Dose: 8 mg Quetiapine Fumarate (Seroquel Xr -) 300 mg PO HS@1999 [facility] Last Admin: 03/22/17 21:00 Dose: 300 mg Ranitidine HCl (Zantac -) 150 mg PO DAILY [facility] Last Admin: 03/23/17 10:53 Dose: Not Given Sertraline HCl (Zoloft -) 100 mg PO BID [facility] Last Admin: 03/23/17 10:54 Dose: Not Given Sodium Chloride ([place] Nasal [place] -) 2 spray NS BID PRN PRN Reason: NASAL CONGESTION Last Admin: 03/23/17 10:52 Dose: 2 sprays Thiamine HCl (Vitamin B1 -) 100 mg PO DAILY [facility] Last Admin: 03/23/17 10:53 Dose: Not Given Zolpidem Tartrate (Ambien -) 10 mg PO HS PRN PRN Reason: INSOMNIA Last Admin: 03/22/17 22:32 Dose: 10 mg Constitutional: Yes: Awake and responsive Eyes: Yes: WNL, Conjunctiva Clear, EOM Intact HENT: Yes: Trach intact Neck: Yes: Supple, Trachea Midline Cardiovascular: Yes: Regular Rate and Rhythm Respiratory: Yes: scattered rhonchi ...Inspection: Yes: WNL ...Clubbing: No Gastrointestinal: Yes: (+) NS, soft Renal/: Yes: WNL Musculoskeletal: Yes: WNL Extremities: Yes: WNL Edema: No Peripheral Pulses WNL: Yes Integumentary: Yes: WNL Neurological: Yes: WNL, Alert, Oriented ...Motor Strength: WNL Psychiatric: Yes: WNL, Alert, Oriented Labs: IMP: NSCLC - Adenocarcinoma s/p R VATS/Wedge Resection/CT placement now removed 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 HTN CAD Alcohol Abuse/Dependence Problem List - Problems (1) Alcohol dependence Code(s): F10.20 - ALCOHOL DEPENDENCE, UNCOMPLICATED Qualifiers: Substance use status: with intoxication Complication of substance- induced condition: with unspecified complication Qualified Code(s): F10.229 - Alcohol dependence with intoxication, unspecified; F10.229 - Alcohol dependence with intoxication, unspecified; F10.229 - Alcohol dependence with intoxication, unspecified (2) COPD (chronic obstructive pulmonary disease) Code(s): J44.9 - CHRONIC OBSTRUCTIVE PULMONARY DISEASE, UNSPECIFIED Qualifiers : COPD type: unspecified COPD Qualified Code(s): J44.9 - Chronic obstructive pulmonary disease, unspecified; J44.9 - Chronic obstructive pulmonary disease, unspecified; J44.9 - Chronic obstructive pulmonary disease, unspecified; J44.9 - Chronic obstructive pulmonary disease, unspecified (3) Cough Code(s): R05 - COUGH (4) Lung cancer Code(s): C34.90 - MALIGNANT NEOPLASM OF UNSP PART OF UNSP BRONCHUS OR LUNG Qualifiers: Laterality: unspecified laterality Lung location: overlapping sites Qualified Code(s): C34.80 - Malignant neoplasm of overlapping sites of unspecified bronchus and lung; C34.80 - Malignant neoplasm of overlapping sites of unspecified bronchus and lung; C34.80 - Malignant neoplasm of overlapping sites of unspecified bronchus and lung; C34.80 - Malignant neoplasm of overlapping sites of unspecified bronchus and lung (5) Nicotine dependence Code(s): F17.200 - NICOTINE DEPENDENCE, UNSPECIFIED, UNCOMPLICATED (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 Assessment/Plan Trach collar O2 Chest PT PT BD TX PRN Enteral feeds SQ Heparin Dr Esquivel Problem List - Problems (1) Alcohol dependence Code(s): F10.20 - ALCOHOL DEPENDENCE, UNCOMPLICATED Qualifiers: Substance use status: with intoxication Complication of substance-induced condition: with unspecified complication Qualified Code(s): F10.229 - Alcohol dependence with intoxication, unspecified (2) Cough Code(s): R05 - COUGH (3) Lung cancer Code(s): C34.90 - MALIGNANT NEOPLASM OF UNSP PART OF UNSP BRONCHUS OR LUNG Qualifiers: Laterality: unspecified laterality Lung location: overlapping sites Qualified Code(s): C34.80 - Malignant neoplasm of overlapping sites of unspecified bronchus and lung (4) COPD (chronic obstructive pulmonary disease) Code(s): J44.9 - CHRONIC OBSTRUCTIVE PULMONARY DISEASE, UNSPECIFIED Qualifiers: COPD type: unspecified COPD Qualified Code(s): J44.9 - Chronic obstructive pulmonary disease, unspecified (5) Nicotine dependence Code(s): F17.200 - NICOTINE DEPENDENCE, UNSPECIFIED, UNCOMPLICATED
[2017-03-23] MEDS ORDERED: LACTATED RINGERS SOLUTION 1,000 ML IV SCH ×2 (13:15→13:30)
[2017-03-23] MEDS ORDERED: ONDANSETRON 4 MG/2 ML VIAL IVPUSH PRN (13:22)
[2017-03-23] MEDS ORDERED: ZOLPIDEM TARTRATE 5 MG TABLET PO PRN (14:18)
[2017-03-23] MEDS ORDERED: MINERAL OIL/PETROLAT/WATER TOPICAL CREAM 454 GM JAR TP PRN (14:18)
--- NOTE | 2017-03-23 15:11 | PN ---
Physical Exam: SUBJECTIVE: Patient seen and examined. Pt alert and oriented, pleasant and comfortable this morning. Pt denies pain. Pt pulled out his trach last night, and trach was replaced. OBJECTIVE: Vital Signs Period Temp Pulse Resp BP Sys/Clay Pulse Ox Last 24 Hr 98.4 F-99.3 F 65-78 18-20 104-119/65-76 98-99 GENERAL: Awake, alert, NAD, pleasant, calm, comfortable. NECK: Incision C/D/I. Trach tube in place. LUNGS: Breath sounds equal, clear to auscultation bilaterally, no accessory muscle use. HEART: Regular rate and rhythm, S1, S2 without murmur, rub or gallop. ABDOMEN: Soft, nontender, nondistended, normoactive bowel sounds. G-tube in place. EXTREMITIES: Left anterior thigh flap site with some discharge along edges. Right anterior thigh wound C/D/I. Warm, well-perfused, no edema. SKIN: Warm, dry, normal turgor, no rashes. Active Medications Generic Name Dose Route Start Last Admin Trade Name Freq PRN Reason Stop Dose Admin Acetylcysteine 600 mg 03/23/17 22:00 Mucomyst 20 Oral / Inh Use Only* NEB TIDR [facility] Albuterol Sulfate 1 amp 03/23/17 14:18 Ventolin 0.083% Nebulizer Soln - NEB Q6H PRN WHEEZING Albuterol Sulfate 1 amp 03/23/17 14:18 Ventolin 0.5% - NEB Q4H PRN SHORT OF BREATH/WHEEZING Allopurinol 100 mg 03/24/17 10:00 Zyloprim - PO DAILY [facility] Amlodipine Besylate 10 mg 03/24/17 10:00 Norvasc - PO DAILY [facility] Aspirin 81 mg 03/24/17 10:00 Asa - PO DAILY [facility] Bacitracin 1 applic 03/23/17 22:00 Bacitracin - TP BID [facility] Chlordiazepoxide HCl 25 mg 03/23/17 22:00 Librium - PO HS [facility] Chlordiazepoxide HCl 25 mg 03/23/17 18:00 Librium - PO Q6HPO [facility] Folic Acid 1 mg 03/24/17 10:00 Folic Acid - PO DAILY [facility] Gabapentin 400 mg 03/23/17 22:00 Neurontin - PO TID [facility] Ibuprofen 400 mg 03/23/17 14:18 Motrin - PO Q6H PRN PAIN Metoprolol Tartrate 25 mg 03/23/17 22:00 Lopressor - PO BID [facility] Multi-Ingredient Lotion 1 applic 03/23/17 14:18 Eucerin (Large Jar) - TP DAILY PRN DRY SKIN Multi-Ingredient Ointment 1 applic 03/23/17 22:00 Zinc Oxide TP BID [facility] Multivitamins/Minerals/Vitamin C 1 tab 03/24/17 10:00 Tab-A-Vit - PO DAILY [facility] Nystatin 1 applic 03/23/17 22:00 Nystop Powder - TP BID [facility] Ondansetron HCl 8 mg 03/23/17 14:18 Zofran Odt - SL Q8H PRN NAUSEA AND/OR VOMITING Quetiapine Fumarate 300 mg 03/23/17 20:00 Seroquel Xr - PO HS@2000 [facility] Ranitidine HCl 150 mg 03/24/17 10:00 Zantac - PO DAILY [facility] Sertraline HCl 100 mg 03/23/17 22:00 Zoloft - PO BID [facility] Sodium Chloride 2 spray 03/23/17 14:18 [place] Nasal [place] - NS BID PRN NASAL CONGESTION Thiamine HCl 100 mg 03/24/17 10:00 Vitamin B1 - PO DAILY [facility] Zolpidem Tartrate 10 mg 03/23/17 14:18 Ambien - PO HS PRN INSOMNIA IMAGIN03/21/17 CXR -> still some residual atelectasis and fluid on Right. 03/23/17 CXR -> some increased markings at Left lung base. 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 # agitation - mental status improved - continue Librium - Seroquel changed to home dose of Seroquel Xr 300mg at HS # nicotine dependence - nicoderm patch 14mg added - per Dr. Lucero risk of vasoconstriction less concerning at this point post- op # Left anterior thigh wound - per Dr. Olivares -> change wound care to Bacitracin and dry gauze, this discharge is not unusual. # acute hypoxic respiratory failure - resolved, trach in place - when pt removes his trach, pt is still able to breath with neck extended. However, at this time trach should remain in place. - continue mucomyst with albuterol nebs # Laryngeal squamous cell Ca s/p laryngectomy with left anterolateral thigh flap pharyngeal reconstruction on 02/20/17 - POD 31 - Tracheo-esophageal puncture performed today - continue Motrin and Neurontin - post-op care per surgery - incentive spirometry - suction q3-4hrs and prn - O2 prn - pt will require 6-7 weeks of daily radiation therapy -> Social work researching options for how this can work (regarding transport, rehab, insurance , etc) # htn - continue Norvasc and Lopressor # CAD s/p 2 stents - continue ASA # gout - continue Allopurinol # 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 Gilmore as outpatient # FEN - Fluids: encourage po - Electolytes: wnl, continue to monitor. - Nutrition: soft diet # Prophylaxis - DVT ppx with Heparin TID - deconditioning ppx with PT and Chest PT Visit type - Emergency Visit Emergency Visit: Yes ED Registration Date: 02/11/17 Care time: The patient presented to the Emergency Department on the above date and was hospitalized for further evaluation of their emergent condition. - New Patient This patient is new to me today: No - Critical Care Critical Care patient: No
--- NOTE | 2017-03-23 15:57 | PN ---
Teaching Attending Note Name of Resident: Gloria Zaldivar ATTENDING PHYSICIAN STATEMENT I saw and evaluated the patient. I reviewed the resident's note and discussed the case with the resident. I agree with the resident's findings and plan as documented. SUBJECTIVE: no pain or SOB, cont to have intermittent confusion at night time.Pulled his trach last night OBJECTIVE: NAD,awake, cooperative, pleasant . off restraints Neck with well healing scar. trach collar on . CV: RRR Lungs: clear bilaterally Ext: R anterior thigh wounds with clean dressings. L anterior thigh wound with small amount of discharge . R anterior thigh wound with no discharge Abd: soft, NT, ND , PEG in place with minimal erythema ASSESSMENT AND PLAN: 56 y/o gentleman with h/o Nicotine dependence, HTN, CAD s/p Stenting , hyperlipidemia and recently diagnosed R lung adenocarcinoma who presented for pulmonary resection. Also was found to have laryngeal SCC , now s/p laryngectomy and flap reconstruction 1-Acute hypoxic resp failure,resolved. Cont O2 through trach 2- Acute delirium. much improved after increasing seroquel dose . but still occurring - cont librium standing at HS and PRN during the day - cont increased dose of seroquel 300 xr 3- Laryngeal SCC s/p larynegectomy, with flap reconstruction - tracheo-esophageal puncture today - Possible RT after placement - Cont Neurontin 4- Fever:resolved , cxray and UA don't indicate an infection 5- HTN -cont norvasc and Metoprolol. 6- CAD: aspirin 7- nicotine dependence : start nicotine patch . OK with sx DVT px with heparin
[2017-03-23] MEDS: GABAPENTIN 400 MG CAPSULE (FP) PO SCH ×2 (16:44→21:48)
[2017-03-23] MEDS: NICOTINE 14 MG/24 HOURS TOPICAL PATCH TD SCH (16:48)
[2017-03-23] MEDS ORDERED: PT OWN MED DRAWER 7, Y5N ONE (18:09)
[2017-03-23] MEDS: chlordiazePOXIDE HCL 25 MG CAPSULE PO SCH (21:48)
[2017-03-23] MEDS: HEPARIN NA (PORCINE) 5,000 UNITS/ML 1ML VIAL SQ SCH (21:49)
[2017-03-23] MEDS ORDERED: BACITRACIN 15 GM TUBE TOPICAL OINTMENT TP SCH (22:00)
[2017-03-23] MEDS: IBUPROFEN 400 MG TABLET (FP) PO PRN (22:31)
--- NOTE | 2017-03-23 23:37 | OP ---
DATE OF OPERATION: 03/23/2017 SURGICAL ATTENDING: Mary Guerin M.D. PREOPERATIVE DIAGNOSIS: Status post total laryngectomy. POSTOPERATIVE DIAGNOSIS: Status post total laryngectomy. ANESTHESIA: General endotracheal anesthesia. PROCEDURE: 1. Rigid esophagoscopy. 2. Tracheoesophageal puncture and prosthesis placement. DESCRIPTION OF PROCEDURE: The patient was taken into the operating room and placed in a supine position. Endotracheally intubated. The eyes were protected. A head drape was placed. A tooth guard was placed. Rigid esophagoscopy was performed showing an intact free flap. Distal to the free flap the esophagus was entered. The esophagoscope was then identified from the tracheal side by transillumination and palpation. The endotracheal tube was removed. The trocar with sheath was then placed on the posterior wall of the trachea, near the mucocutaneous junction, and identified entering into the esophagus through the esophagoscope. The sheath was then advanced and the trocar removed. The internal plastic device within the sheath was then placed with a 14-mm tracheoesophageal prosthesis as dictated by the measuring device. This was pulled through the tracheoesophageal puncture, leaving the tracheoesophageal prosthesis in the tract with phalanges seen on both the esophageal and tracheal side. The long strand was then cut off on the tracheal side, and the prosthesis remained intact. Hemostasis was achieved. The esophagoscope was then removed. The patient was then awakened. A fenestrated size 8 tracheostomy tube was placed. He remained stable throughout the entire procedure. Dr. Guerin, the attending surgeon, was present throughout the entire procedure. MARY GUERIN M.D. [id number]
[2017-03-24] MEDS: ACETYLCYSTEINE 20% 200MG/ML 4 ML VIAL *FOR ORAL / INH USE ONLY NEB SCH ×3 (06:39→22:40)
[2017-03-24] MEDS: ALBUTEROL SO4 0.083% IH SOL 2.5 MG/3 ML VIAL.NEB. NEB PRN ×3 (06:39→22:40)
[2017-03-24] MEDS: GABAPENTIN 400 MG CAPSULE (FP) PO SCH ×3 (06:46→22:22)
[2017-03-24] MEDS: HEPARIN NA (PORCINE) 5,000 UNITS/ML 1ML VIAL SQ SCH ×3 (06:46→22:24)
[2017-03-24] MEDS ORDERED: PT OWN MED DRAWER 7, Y5N ONE ×2 (11:54→15:32)
[2017-03-24] MEDS: SERTRALINE HCL 50 MG TABLET (FP) PO SCH ×2 (11:56→22:23)
[2017-03-24] MEDS: THIAMINE HCL 100 MG TABLET (FP) PO SCH (11:56)
[2017-03-24] MEDS: FOLIC ACID 1 MG TABLET (FP) PO SCH (11:56)
[2017-03-24] MEDS: RANITIDINE HCL 150 MG TABLET (FP) PO SCH (11:56)
[2017-03-24] MEDS: ALLOPURINOL 100 MG TABLET (FP) PO SCH (11:56)
[2017-03-24] MEDS: MULTIVITAMINS (DAILY MVI) TABLET (FP) PO SCH (11:56)
[2017-03-24] MEDS: METOPROLOL TARTRATE 25 MG TABLET (FP) PO SCH ×2 (11:56→22:23)
[2017-03-24] MEDS: amLODIPine BESYLATE 10 MG TABLET (FP) PO SCH (11:56)
[2017-03-24] MEDS: NYSTATIN POWDER 100,000 UNITS/GM - 15 GM TOPICAL POWDER TP SCH ×2 (11:57→22:25)
[2017-03-24] MEDS: ASPIRIN 81 MG CHEWABLE TABLETS PO SCH (11:57)
[2017-03-24] MEDS: NICOTINE 14 MG/24 HOURS TOPICAL PATCH TD SCH (11:57)
[2017-03-24] MEDS: ZINC OXIDE 20% TOPICAL OINTMENT 30 GM TUBE TP SCH ×2 (13:38→22:25)
[2017-03-24] MEDS: BACITRACIN 15 GM TUBE TOPICAL OINTMENT TP SCH ×2 (13:38→22:25)
--- NOTE | 2017-03-24 14:20 | PN ---
Progress Note, DOG HAIR CLIPPER - Note Progress Note: Pt was calm today, stating the TEP "wasn't working." Trach in place, therefore unable to manually access TEP and initiate training in TEP use/alaryngeal speech. Call placed to Dr. Lucero regarding TEP. He explained that the trach was needed due to stoma collapse with head flexion.Plan is to remove trach, train pt, and replace trach tube. He spoke with resident regarding plan. To initiate trial tomorrow afternoon.
--- NOTE | 2017-03-24 15:13 | PN ---
Progress Note (short form) - Note Progress Note: Anesthesia POD#1 S/P Esophagoscopy and esophageal tracheal Prosthesis Placement under GA. VSS,no N/V,Pain is fine. No complications seen. Marixa Garcia MD.
[2017-03-24] MEDS: chlordiazePOXIDE HCL 25 MG CAPSULE PO PRN (16:06)
--- NOTE | 2017-03-24 18:28 | PN ---
Physical Exam: SUBJECTIVE: Patient seen and examined. Pt alert and oriented, pleasant and comfortable this morning. Pt denies chest pain, sob, abdominal pain, fever, chills. Per 1:1 aid, pt was agitated last night, and tried to pull out his IV, but was unsuccessful. OBJECTIVE: Vital Signs Period Temp Pulse Resp BP Sys/Clay Pulse Ox Last 24 Hr 98.2 F-98.7 F 68-101 18-22 107-152/61-90 97-100 GENERAL: Awake, alert, NAD, pleasant, calm, comfortable. Off restraints. NECK: with well healing scar. Trach tube and collar in place. LUNGS: Breath sounds equal, clear to auscultation bilaterally, no accessory muscle use. HEART: Regular rate and rhythm, S1, S2 without murmur, rub or gallop. ABDOMEN: Soft, nontender, nondistended, normoactive bowel sounds. G-tube in place. EXTREMITIES: Left anterior thigh flap site with no discharge today s/p dressing change to bacitracin and dry gauze. Right anterior thigh wound C/D/I. Warm, well-perfused, no edema. SKIN: Warm, dry, normal turgor, no rashes. Active Medications Generic Name Dose Route Start Last Admin Trade Name Freq PRN Reason Stop Dose Admin Acetylcysteine 600 mg 03/23/17 22:00 03/24/17 13:35 Mucomyst 20 Oral / Inh Use Only* NEB 600 mg TIDR JUNIOR Administration Albuterol Sulfate 1 amp 03/23/17 14:18 03/24/17 13:35 Ventolin 0.083% Nebulizer Soln - NEB 1 amp Q6H PRN Administration WHEEZING Albuterol Sulfate 1 amp 03/23/17 14:18 Ventolin 0.5% - NEB Q4H PRN SHORT OF BREATH/WHEEZING Allopurinol 100 mg 03/24/17 10:00 03/24/17 11:56 Zyloprim - PO 100 mg DAILY JUNIOR Administration Amlodipine Besylate 10 mg 03/24/17 10:00 03/24/17 11:56 Norvasc - PO 10 mg DAILY JUNIOR Administration Aspirin 81 mg 03/24/17 10:00 03/24/17 11:57 Asa - PO 81 mg DAILY JUNIOR Administration Bacitracin 1 applic 03/23/17 22:00 03/24/17 13:38 Bacitracin - TP 1 applic BID JUNIOR Administration Chlordiazepoxide HCl 25 mg 03/23/17 22:00 03/23/17 21:48 Librium - PO 25 mg HS JUNIOR Administration Chlordiazepoxide HCl 25 mg 03/23/17 18:54 03/24/17 16:06 Librium - PO 25 mg Q6H PRN Administration AGITATION Folic Acid 1 mg 03/24/17 10:00 03/24/17 11:56 Folic Acid - PO 1 mg DAILY JUNIOR Administration Gabapentin 400 mg 03/23/17 22:00 03/24/17 15:36 Neurontin - PO 400 mg TID JUNIOR Administration Heparin Sodium (Porcine) 5,000 unit 03/23/17 22:00 03/24/17 15:36 Heparin - SQ 5,000 unit TID JUNIOR Administration Ibuprofen 400 mg 03/23/17 14:18 03/23/17 22:31 Motrin - PO 400 mg Q6H PRN Administration PAIN Metoprolol Tartrate 25 mg 03/23/17 22:00 03/24/17 11:56 Lopressor - PO 25 mg BID JUNIOR Administration Multi-Ingredient Lotion 1 applic 03/23/17 14:18 Eucerin (Large Jar) - TP DAILY PRN DRY SKIN Multi-Ingredient Ointment 1 applic 03/23/17 22:00 03/24/17 13:38 Zinc Oxide TP 1 applic BID JUNIOR Administration Multivitamins/Minerals/Vitamin C 1 tab 03/24/17 10:00 03/24/17 11:56 Tab-A-Vit - PO 1 tab DAILY JUNIOR Administration Nicotine 14 mg 03/23/17 15:00 03/24/17 11:57 Nicoderm Patch - TD 14 mg DAILY JUNIOR Administration Nystatin 1 applic 03/23/17 22:00 03/24/17 11:57 Nystop Powder - TP 1 applic BID JUNIOR Administration Ondansetron HCl 8 mg 03/23/17 14:18 Zofran Odt - SL Q8H PRN NAUSEA AND/OR VOMITING Quetiapine Fumarate 300 mg 03/23/17 20:00 03/23/17 21:49 Seroquel Xr - PO 300 mg HS@2000 JUNIOR Administration Ranitidine HCl 150 mg 03/24/17 10:00 03/24/17 11:56 Zantac - PO 150 mg DAILY JUNIOR Administration Sertraline HCl 100 mg 03/23/17 22:00 03/24/17 11:56 Zoloft - PO 100 mg BID JUNIOR Administration Sodium Chloride 2 spray 03/23/17 14:18 [place] Nasal [place] - NS BID PRN NASAL CONGESTION Thiamine HCl 100 mg 03/24/17 10:00 03/24/17 11:56 Vitamin B1 - PO 100 mg DAILY JUNIOR Administration ASSESSMENT/PLAN: 56yo M with PMH of nicotine dependence, Right lung CA, CAD with 2 stents, htn, hld, gout, presented with worsening cough and sputum production and admitted to med-surg for lung resection, 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 # Tracheo-esophageal puncture - POD 1 - use and laryngeal speech training to begin tomorrow per Speech - trach still needed at this time as stoma collapses with head flexion, so pt will have to have trach removed for training and then replaced after training. # acute delirium - mental status improved - pt without restraints currently, but still using 1:1 - continue Librium and Seroquel - Psych Consult # acute hypoxic respiratory failure - resolved, trach in place - continue mucomyst with albuterol nebs # Laryngeal squamous cell Ca s/p laryngectomy with left anterolateral thigh flap pharyngeal reconstruction on 02/20/17 - continue Motrin prn and Neurontin - suction q3-4hrs and prn - O2 prn - pt will require 6-7 weeks of daily radiation therapy -> Social work researching options for how this can work (regarding transport, rehab, insurance , etc) # htn - continue Norvasc and Lopressor # CAD s/p 2 stents - continue ASA # gout - continue Allopurinol # nicotine dependence - continue nicoderm patch 14mg # FEN - Fluids: encourage po - Electolytes: wnl, continue to monitor. - Nutrition: soft diet # Prophylaxis - DVT ppx with Heparin TID - deconditioning ppx with PT and Chest PT Visit type - Emergency Visit Emergency Visit: Yes ED Registration Date: 02/11/17 Care time: The patient presented to the Emergency Department on the above date and was hospitalized for further evaluation of their emergent condition. - New Patient This patient is new to me today: No - Critical Care Critical Care patient: No
--- NOTE | 2017-03-24 19:18 | PN ---
Teaching Attending Note Name of Resident: Gloria Zaldivar ATTENDING PHYSICIAN STATEMENT I saw and evaluated the patient. I reviewed the resident's note and discussed the case with the resident. I agree with the resident's findings and plan as documented. SUBJECTIVE: Feels frustrated. no pain , NO SOB OBJECTIVE: NAD,awake, cooperative, pleasant . off restraints Neck with well healing scar. trach collar on . CV: RRR Lungs: clear bilaterally Ext: R anterior thigh wounds with clean dressings. L anterior thigh wound with small amount of discharge . R anterior thigh wound with no discharge Abd: soft, NT, ND , PEG in place with minimal erythema ASSESSMENT AND PLAN: 56 y/o gentleman with h/o Nicotine dependence, HTN, CAD s/p Stenting , hyperlipidemia and recently diagnosed R lung adenocarcinoma who presented for pulmonary resection. 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 Cont O2 through trach 2- Acute delirium. much improved after increasing seroquel dose. but still occurring - cont librium standing at HS and PRN during the day - cont increased dose of seroquel 300 xr - will re-invite dr. Branch and will invite Psych to help with management of delirium 3- Laryngeal SCC s/p larynegectomy, with flap reconstruction - tracheo-esophageal puncture done. to start speaking trials tomorrow - Possible RT after placement - Cont Neurontin 4- HTN -cont norvasc and Metoprolol. 5- CAD: aspirin 6- Nicotine dependence : nicotine patch . DVT px with heparin
--- NOTE | 2017-03-24 19:41 | PN ---
Progress Note (short form) - Note Progress Note: Asked to see this patient, a 56 year old male with prlonged hospital stay and having periods of agitation. Patient chart was reviewed Labs and reports were seen Nursing input received House resident detailed account of patient's behavior and present state appreciated. Patient is non verbal at this time and is refusing to engage at this time He presents as quiet but hostile making hand gesticulations to 'get out!' Found lying in bed and coughing out mucus from his trach. It is difficult to know what type of underlying psychiatric illness he has had a long hospitalizations and has serious medical condition. He has loss of independence etc. MS Alert oriented to place, situation.Mood is Depressed. No evidence of psychoses. Rec Continue zoloft Consider changng seroquel to immediate release 50 mgs q am and 300 q hs. Patient get too much of a groggy hangover with XR version of seroquel Continue switching from librium to a more short acting heath like ativan 2 mgs prn. Thank you
[2017-03-24] MEDS: chlordiazePOXIDE HCL 25 MG CAPSULE PO SCH (22:24)
[2017-03-25] MEDS: HEPARIN NA (PORCINE) 5,000 UNITS/ML 1ML VIAL SQ SCH ×3 (06:18→21:02)
[2017-03-25] MEDS: GABAPENTIN 400 MG CAPSULE (FP) PO SCH ×3 (06:18→21:00)
[2017-03-25] MEDS: ALBUTEROL SO4 0.083% IH SOL 2.5 MG/3 ML VIAL.NEB. NEB PRN ×2 (06:45→14:32)
[2017-03-25] MEDS: ACETYLCYSTEINE 20% 200MG/ML 4 ML VIAL *FOR ORAL / INH USE ONLY NEB SCH ×3 (06:45→22:47)
--- NOTE | 2017-03-25 08:49 | PN ---
Teaching Attending Note Name of Resident: Gloria Zaldivar ATTENDING PHYSICIAN STATEMENT I saw and evaluated the patient. I reviewed the resident's note and discussed the case with the resident. I agree with the resident's findings and plan as documented. SUBJECTIVE: Patient is feeling better, off restraints for now, less agitated, looks comfortable. OBJECTIVE: Vital Signs Temperature 99.6 F 03/25/17 06:00 Pulse Rate 87 03/25/17 06:00 Respiratory Rate 18 03/24/17 22:00 Blood Pressure 105/64 03/25/17 06:00 O2 Sat by Pulse Oximetry (%) 98 03/24/17 23:23 CBCD WBC 8.5 K/mm3 (4.0-10.0) 03/22/17 06:37 RBC 3.61 M/mm3 (4.00-5.60) L 03/22/17 06:37 Hgb 10.9 GM/dL (11.7-16.9) L 03/22/17 06:37 Hct 32.6 % (35.4-49) L 03/22/17 06:37 MCV 90.3 fl (80-96) 03/22/17 06:37 MCHC 33.5 g/dl (32.0-35.9) 03/22/17 06:37 RDW 13.6 % (11.9-15.9) 03/22/17 06:37 Plt Count 201 K/MM3 (134-434) 03/22/17 06:37 MPV 10.0 fl (7.5-11.1) 03/22/17 06:37 CMP Sodium 139 mmol/L (136-145) 03/22/17 06:37 Potassium 4.2 mmol/L (3.5-5.1) 03/22/17 06:37 Chloride 104 mmol/L (98-107) 03/22/17 06:37 Carbon Dioxide 27 mmol/L (21-32) 03/22/17 06:37 Anion Gap 8 (8-16) 03/22/17 06:37 BUN 11 mg/dL (7-18) 03/22/17 06:37 Creatinine 1.1 mg/dL (0.7-1.3) 03/22/17 06:37 Creat Clearance w eGFR > 60 (>60) 03/10/17 06:50 Random Glucose 104 mg/dL (74-106) 03/22/17 06:37 Calcium 8.6 mg/dL (8.5-10.1) 03/22/17 06:37 Total Bilirubin 0.5 mg/dL (0.2-1.0) D 03/10/17 06:50 AST 23 U/L (15-37) 03/10/17 06:50 ALT 29 U/L (12-78) 03/10/17 06:50 Alkaline Phosphatase 96 U/L (45-117) 03/10/17 06:50 Total Protein 7.0 g/dl (6.4-8.2) 03/10/17 06:50 Albumin 2.7 g/dl (3.4-5.0) L D 03/10/17 06:50 CARDIAC ENZYMES Creatine Kinase 71 IU/L (39-308) 02/11/17 10:24 Troponin I < 0.02 ng/ml (0.00-0.05) 02/11/17 10:24 Current Medications Generic Name Dose Route Start Last Admin Trade Name Freq PRN Reason Stop Dose Admin Acetylcysteine 600 mg 03/23/17 22:00 03/25/17 06:45 Mucomyst 20 Oral / Inh Use Only* NEB 600 mg TIDR JUNIOR Administration Albuterol Sulfate 1 amp 03/23/17 14:18 03/25/17 06:45 Ventolin 0.083% Nebulizer Soln - NEB 1 amp Q6H PRN Administration WHEEZING Albuterol Sulfate 1 amp 03/23/17 14:18 Ventolin 0.5% - NEB Q4H PRN SHORT OF BREATH/WHEEZING Allopurinol 100 mg 03/24/17 10:00 03/24/17 11:56 Zyloprim - PO 100 mg DAILY JUNIOR Administration Amlodipine Besylate 10 mg 03/24/17 10:00 03/24/17 11:56 Norvasc - PO 10 mg DAILY JUNIOR Administration Aspirin 81 mg 03/24/17 10:00 03/24/17 11:57 Asa - PO 81 mg DAILY JUNIOR Administration Bacitracin 1 applic 03/23/17 22:00 03/24/17 22:25 Bacitracin - TP 1 applic BID JUNIOR Administration Chlordiazepoxide HCl 25 mg 03/23/17 22:00 03/24/17 22:24 Librium - PO 25 mg HS JUNIOR Administration Chlordiazepoxide HCl 25 mg 03/23/17 18:54 03/24/17 16:06 Librium - PO 25 mg Q6H PRN Administration AGITATION Folic Acid 1 mg 03/24/17 10:00 03/24/17 11:56 Folic Acid - PO 1 mg DAILY JUNIOR Administration Gabapentin 400 mg 03/23/17 22:00 03/25/17 06:18 Neurontin - PO 400 mg TID JUNIOR Administration Heparin Sodium (Porcine) 5,000 unit 03/23/17 22:00 03/25/17 06:18 Heparin - SQ 5,000 unit TID JUNIOR Administration Ibuprofen 400 mg 03/23/17 14:18 03/23/17 22:31 Motrin - PO 400 mg Q6H PRN Administration PAIN Metoprolol Tartrate 25 mg 03/23/17 22:00 03/24/17 22:23 Lopressor - PO 25 mg BID JUNIOR Administration Multi-Ingredient Lotion 1 applic 03/23/17 14:18 Eucerin (Large Jar) - TP DAILY PRN DRY SKIN Multi-Ingredient Ointment 1 applic 03/23/17 22:00 03/24/17 22:25 Zinc Oxide TP 1 applic BID JUNIOR Administration Multivitamins/Minerals/Vitamin C 1 tab 03/24/17 10:00 03/24/17 11:56 Tab-A-Vit - PO 1 tab DAILY JUNIOR Administration Nicotine 14 mg 03/23/17 15:00 03/24/17 11:57 Nicoderm Patch - TD 14 mg DAILY JUNIOR Administration Nystatin 1 applic 03/23/17 22:00 03/24/17 22:25 Nystop Powder - TP 1 applic BID JUNIOR Administration Ondansetron HCl 8 mg 03/23/17 14:18 Zofran Odt - SL Q8H PRN NAUSEA AND/OR VOMITING Quetiapine Fumarate 300 mg 03/23/17 20:00 03/24/17 22:25 Seroquel Xr - PO 300 mg HS@2000 JUNIOR Administration Ranitidine HCl 150 mg 03/24/17 10:00 03/24/17 11:56 Zantac - PO 150 mg DAILY JUNIOR Administration Sertraline HCl 100 mg 03/23/17 22:00 03/24/17 22:23 Zoloft - PO 100 mg BID JUNIOR Administration Sodium Chloride 2 spray 03/23/17 14:18 [place] Nasal [place] - NS BID PRN NASAL CONGESTION Thiamine HCl 100 mg 03/24/17 10:00 03/24/17 11:56 Vitamin B1 - PO 100 mg DAILY JUNIOR Administration Home Medications Medication Instructions Recorded Amlodipine Besylate 10 mg PO DAILY 12/23/16 Atorvastatin Ca [Lipitor] 10 mg PO HS 12/23/16 Gabapentin 800 mg PO TID 12/23/16 Quetiapine Fumarate "Xr" [Seroquel 300 mg PO ACDIN 12/23/16 Xr -] Sertraline HCl [Zoloft] 100 mg PO BID 12/23/16 Folic Acid 1 mg PO DAILY 01/02/17 Allopurinol [Zyloprim -] 100 mg PO DAILY 02/12/17 Aspirin [ASA -] 81 mg PO DAILY 02/12/17 PE: NAD,awake, cooperative, pleasant . off restraints x 2 days Neck with well healing scar. trach collar on . CV: RRR Lungs: clear bilaterally Ext: Right anterior thigh wounds healing with no dressings. L anterior thigh wound is clean and no discharge Abd: soft, NT, ND , PEG in place with minimal erythema. ASSESSMENT AND PLAN: Patient is a 56 y/o gentleman with h/o Nicotine dependence, HTN, CAD s/p Stenting , hyperlipidemia and recently diagnosed R lung adenocarcinoma who presented for pulmonary resection. 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 continue # Acute delirium improving , off restraints now, but still needing sitter since he can get very agitated and pull everything , will continue to monitor him. ON seroquel increased dose of seroquel 300 xr , continue librium standing at HS and PRN during the day continue. continue Zoloft as well Dr. Branch and psych revaluation appreciated. # Laryngeal SCC s/p larynegectomy, with flap reconstruction. POD#1 for tracheo -esophageal puncture done, Nguyen Crain on the case , will start speaking trials. Possible RT after placement , Cont Neurontin . # HTN -cont norvasc and Metoprolol. # CAD: aspirin # Nicotine dependence : nicotine patch . DVT px with heparin
[2017-03-25] MEDS: RANITIDINE HCL 150 MG TABLET (FP) PO SCH (11:55)
[2017-03-25] MEDS: MULTIVITAMINS (DAILY MVI) TABLET (FP) PO SCH (11:55)
[2017-03-25] MEDS: METOPROLOL TARTRATE 25 MG TABLET (FP) PO SCH ×2 (11:55→21:01)
[2017-03-25] MEDS: ASPIRIN 81 MG CHEWABLE TABLETS PO SCH (11:55)
[2017-03-25] MEDS: amLODIPine BESYLATE 10 MG TABLET (FP) PO SCH (11:55)
[2017-03-25] MEDS: FOLIC ACID 1 MG TABLET (FP) PO SCH (11:55)
[2017-03-25] MEDS: THIAMINE HCL 100 MG TABLET (FP) PO SCH (11:55)
[2017-03-25] MEDS: NICOTINE 14 MG/24 HOURS TOPICAL PATCH TD SCH (11:55)
[2017-03-25] MEDS: ALLOPURINOL 100 MG TABLET (FP) PO SCH (11:56)
[2017-03-25] MEDS: SERTRALINE HCL 50 MG TABLET (FP) PO SCH ×2 (11:56→21:00)
[2017-03-25] MEDS: SODIUM CHLORIDE NASAL SPRAY 44 ML BOTTLE NS PRN (11:56)
[2017-03-25] MEDS: NYSTATIN POWDER 100,000 UNITS/GM - 15 GM TOPICAL POWDER TP SCH ×2 (11:57→21:35)
[2017-03-25] MEDS: ZINC OXIDE 20% TOPICAL OINTMENT 30 GM TUBE TP SCH ×2 (11:58→21:35)
[2017-03-25] MEDS: BACITRACIN 15 GM TUBE TOPICAL OINTMENT TP SCH ×2 (11:59→21:45)
--- NOTE | 2017-03-25 13:55 | PN ---
Progress Note (short form) - Note Progress Note: PULMONARY SITTER 1;1 CALM/NOT AGITATED VSS/AFEBRILE ANICTERIC/TRACH W O2 COLLAR CLEAR ANTERIOR BREATH SOUNDS S1S2 BS+ SOFT NO EDEMA LABS/MEDS/NOTES/IMAGES REVIEWED 1) newly diagnosed RUL adenocarcinoma - s/p vats wedge resection/right chest tube w drainage was removed - Dilaudid/Oxycodone for pain - incentive spirometry - O2 prn 2) Supraglottic lesion - s/p laryngoscopy biopsy revealing squamous cell Ca - s/p total laryngectomy and radical neck dissection revealing stage 4b disease - - should be evaluated for adjuvant therapy when clinically stable 3) ETOH abuse 4) CAD s/p PCI stents 5) DVT Prophylaxis - Heparin 5,000U SQ BID - sheree Anni MARTINEZ MD
--- NOTE | 2017-03-25 14:57 | PN ---
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 Pt also able to write legibly now that mentation has improved. Trach in place, therefore unable to manually access TEP and initiate training in TEP use/alaryngeal speech. Trach was needed due to stoma collapse with head flexion. Plan is to remove trach, train pt, and replace trach tube. Reviewed plan with hospitalist and team, who would prefer to remove the trach when MD (surgeon,ENT,Pulm) is available to make sure trach is easily replaced in stoma. To initiate trial tomorrow afternoon.
--- NOTE | 2017-03-25 19:06 | PN ---
Physical Exam: SUBJECTIVE: Patient seen and examined. Pt alert and oriented, pleasant and comfortable this morning. Pt without restraints for 2 nights now. Per 1:1 aid , pt tries to get out of bed at night, but did not try to pull out his IV or trach. OBJECTIVE: Vital Signs Period Temp Pulse Resp BP Sys/Clay Pulse Ox Last 24 Hr 98.9 F-99.6 F 78-92 18-18 105-138/64-91 98-100 GENERAL: Awake, alert, NAD, pleasant, calm, comfortable. Off restraints. NECK: with well healing scar. Trach tube and collar in place. LUNGS: Breath sounds equal, clear to auscultation bilaterally, no accessory muscle use. HEART: Regular rate and rhythm, S1, S2 without murmur, rub or gallop. ABDOMEN: Soft, nontender, nondistended. G-tube in place. EXTREMITIES: Left anterior thigh flap site clean and dry. Right anterior thigh wound C/D/I. Warm, well-perfused, no edema. SKIN: Warm, dry, normal turgor, no rashes. Active Medications Generic Name Dose Route Start Last Admin Trade Name Freq PRN Reason Stop Dose Admin Acetylcysteine 600 mg 03/23/17 22:00 03/25/17 14:32 Mucomyst 20 Oral / Inh Use Only* NEB 600 mg TIDR JUNIOR Administration Albuterol Sulfate 1 amp 03/23/17 14:18 03/25/17 14:32 Ventolin 0.083% Nebulizer Soln - NEB 1 amp Q6H PRN Administration WHEEZING Albuterol Sulfate 1 amp 03/23/17 14:18 Ventolin 0.5% - NEB Q4H PRN SHORT OF BREATH/WHEEZING Allopurinol 100 mg 03/24/17 10:00 03/25/17 11:56 Zyloprim - PO 100 mg DAILY JUNIOR Administration Amlodipine Besylate 10 mg 03/24/17 10:00 03/25/17 11:55 Norvasc - PO 10 mg DAILY JUNIOR Administration Aspirin 81 mg 03/24/17 10:00 03/25/17 11:55 Asa - PO 81 mg DAILY JUNIOR Administration Bacitracin 1 applic 03/23/17 22:00 03/25/17 11:59 Bacitracin - TP 1 applic BID JUNIOR Administration Chlordiazepoxide HCl 25 mg 03/23/17 22:00 03/24/17 22:24 Librium - PO 25 mg HS JUNIOR Administration Chlordiazepoxide HCl 25 mg 03/23/17 18:54 03/24/17 16:06 Librium - PO 25 mg Q6H PRN Administration AGITATION Folic Acid 1 mg 03/24/17 10:00 03/25/17 11:55 Folic Acid - PO 1 mg DAILY JUNIOR Administration Gabapentin 400 mg 03/23/17 22:00 03/25/17 13:26 Neurontin - PO 400 mg TID JUNIOR Administration Heparin Sodium (Porcine) 5,000 unit 03/23/17 22:00 03/25/17 13:26 Heparin - SQ 5,000 unit TID JUNIOR Administration Ibuprofen 400 mg 03/23/17 14:18 03/23/17 22:31 Motrin - PO 400 mg Q6H PRN Administration PAIN Metoprolol Tartrate 25 mg 03/23/17 22:00 03/25/17 11:55 Lopressor - PO 25 mg BID JUNIOR Administration Multi-Ingredient Lotion 1 applic 03/23/17 14:18 Eucerin (Large Jar) - TP DAILY PRN DRY SKIN Multi-Ingredient Ointment 1 applic 03/23/17 22:00 03/25/17 11:58 Zinc Oxide TP 1 applic BID JUNIOR Administration Multivitamins/Minerals/Vitamin C 1 tab 03/24/17 10:00 03/25/17 11:55 Tab-A-Vit - PO 1 tab DAILY JUNIOR Administration Nicotine 14 mg 03/23/17 15:00 03/25/17 11:55 Nicoderm Patch - TD 14 mg DAILY JUNIOR Administration Nystatin 1 applic 03/23/17 22:00 03/25/17 11:57 Nystop Powder - TP 1 applic BID JUNIOR Administration Ondansetron HCl 8 mg 03/23/17 14:18 Zofran Odt - SL Q8H PRN NAUSEA AND/OR VOMITING Quetiapine Fumarate 300 mg 03/23/17 20:00 03/24/17 22:25 Seroquel Xr - PO 300 mg HS@2000 JUNIOR Administration Ranitidine HCl 150 mg 03/24/17 10:00 03/25/17 11:55 Zantac - PO 150 mg DAILY JUNIOR Administration Sertraline HCl 100 mg 03/23/17 22:00 03/25/17 11:56 Zoloft - PO 100 mg BID JUNIOR Administration Sodium Chloride 2 spray 12/04/17 14:18 03/25/17 11:56 [place] Nasal [place] - NS 2 sprays BID PRN Administration NASAL CONGESTION Thiamine HCl 100 mg 03/24/17 10:00 03/25/17 11:55 Vitamin B1 - PO 100 mg DAILY JUNIOR Administration ASSESSMENT/PLAN: 56yo M with PMH of nicotine dependence, Right lung CA, CAD with 2 stents, htn, hld, gout, presented with worsening cough and sputum production and admitted to med-surg for lung resection, 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 # Tracheo-esophageal puncture - POD 2 - use and laryngeal speech training to begin tomorrow per Speech, when ENT ( Dr. Lucero) or Pulm Crit Care (Dr. Manjarrez) can be present # acute delirium - mental status improved - pt without restraints currently, but still using 1:1 - continue Librium and Seroquel # acute hypoxic respiratory failure - resolved, trach in place - continue mucomyst with albuterol nebs # Laryngeal squamous cell Ca s/p laryngectomy with left anterolateral thigh flap pharyngeal reconstruction on 02/20/17 - continue Motrin prn and Neurontin - suction q3-4hrs and prn - O2 prn - pt will require 6-7 weeks of daily radiation therapy -> Social work researching options for how this can work (regarding transport, rehab, insurance , etc) # htn - continue Norvasc and Lopressor # CAD s/p 2 stents - continue ASA # gout - continue Allopurinol # nicotine dependence - continue nicoderm patch 14mg # FEN - Fluids: encourage po - Electolytes: wnl, continue to monitor. - Nutrition: soft diet # Prophylaxis - DVT ppx with Heparin TID - deconditioning ppx with PT and Chest PT Visit type - Emergency Visit Emergency Visit: Yes ED Registration Date: 02/11/17 Care time: The patient presented to the Emergency Department on the above date and was hospitalized for further evaluation of their emergent condition. - New Patient This patient is new to me today: No - Critical Care Critical Care patient: No
[2017-03-25] MEDS: chlordiazePOXIDE HCL 25 MG CAPSULE PO SCH (21:00)
[2017-03-26] MEDS ORDERED: ONDANSETRON 4 MG/2 ML VIAL IVPUSH ONE (01:04)
--- NOTE | 2017-03-26 01:16 | RAPID ---
Physical Examination Vital Signs: Vital Signs Temperature 99.8 F H 03/25/17 20:56 Pulse Rate 83 03/25/17 20:56 Respiratory Rate 20 03/25/17 20:56 Blood Pressure 117/72 03/25/17 20:56 O2 Sat by Pulse Oximetry (%) 100 03/25/17 10:55 Rapid response was called by RN for patient pulled out his tracheostomy. Patient seen and examined. lynig comfortably in bed. Tracheostomy no 8 was placed in one attempt. suction was done by respiratory therapist. post suction patient started vomiting. BP 124/61 spo2 96 DE 72 GEN: Awake, alert Chest : BL airentry present, no wheez, no rales. CVS s1s2 normal. PLan CXR to confirm his position. IF patient get short of breath, extend his neck to maintain patency of tracheostomy and suction. Anesthesia called to check Trach Placement. . Labs: CBC, BMP 03/22/17 06:37 03/22/17 06:37
[2017-03-26] MEDS: HEPARIN NA (PORCINE) 5,000 UNITS/ML 1ML VIAL SQ SCH ×3 (06:24→22:12)
[2017-03-26] MEDS: GABAPENTIN 400 MG CAPSULE (FP) PO SCH ×3 (06:24→22:11)
[2017-03-26] MEDS: ACETYLCYSTEINE 20% 200MG/ML 4 ML VIAL *FOR ORAL / INH USE ONLY NEB SCH ×3 (06:35→22:10)
--- NOTE | 2017-03-26 11:27 | PN ---
Progress Note (short form) - Note Progress Note: Events overnight noted. Patient again pulled out his Trach and it was replaced at the bedside without incident. Denies CP or SOB. CXR: No gross change. Trach in place. Intake & Output 03/23/17 03/24/17 03/25/17 03/26/17 23:59 23:59 23:59 23:59 Intake Total 2050 705 900 375 Output Total 1200 500 2 Balance 2050 -495 400 373 Last Vital Signs Temp Pulse Resp BP Pulse Ox 98.9 F 69 20 113/72 97 03/26/17 06:00 03/26/17 09:35 03/26/17 06:00 03/26/17 06:00 03/26/17 09:35 Active Medications Acetylcysteine (Mucomyst 20 Oral / Inh Use Only*) 600 mg NEB TIDR [facility] Last Admin: 03/26/17 06:35 Dose: 600 mg Albuterol Sulfate (Ventolin 0.083% Nebulizer Soln -) 1 amp NEB Q6H PRN PRN Reason: WHEEZING Last Admin: 03/25/17 14:32 Dose: 1 amp Albuterol Sulfate (Ventolin 0.5% -) 1 amp NEB Q4H PRN PRN Reason: SHORT OF BREATH/WHEEZING Allopurinol (Zyloprim -) 100 mg PO DAILY [facility] Last Admin: 03/25/17 11:56 Dose: 100 mg Amlodipine Besylate (Norvasc -) 10 mg PO DAILY [facility] Last Admin: 03/25/17 11:55 Dose: 10 mg Aspirin (Asa -) 81 mg PO DAILY [facility] Last Admin: 03/25/17 11:55 Dose: 81 mg Bacitracin (Bacitracin -) 1 applic TP BID [facility] Last Admin: 03/25/17 21:45 Dose: 1 applic Chlordiazepoxide HCl (Librium -) 25 mg PO HS [facility] Last Admin: 03/25/17 21:00 Dose: 25 mg Chlordiazepoxide HCl (Librium -) 25 mg PO Q6H PRN PRN Reason: AGITATION Last Admin: 03/24/17 16:06 Dose: 25 mg Folic Acid (Folic Acid -) 1 mg PO DAILY [facility] Last Admin: 03/25/17 11:55 Dose: 1 mg Gabapentin (Neurontin -) 400 mg PO TID JUNIOR Last Admin: 03/26/17 06:24 Dose: 400 mg Heparin Sodium (Porcine) (Heparin -) 5,000 unit SQ TID [facility] Last Admin: 03/26/17 06:24 Dose: 5,000 unit Ibuprofen (Motrin -) 400 mg PO Q6H PRN PRN Reason: PAIN Last Admin: 03/23/17 22:31 Dose: 400 mg Metoprolol Tartrate (Lopressor -) 25 mg PO BID [facility] Last Admin: 03/25/17 21:01 Dose: 25 mg Multi-Ingredient Lotion (Eucerin (Large Jar) -) 1 applic TP DAILY PRN PRN Reason: DRY SKIN Multi-Ingredient Ointment (Zinc Oxide) 1 applic TP BID [facility] Last Admin: 03/25/17 21:35 Dose: 1 applic Multivitamins/Minerals/Vitamin C (Tab-A-Vit -) 1 tab PO DAILY [facility] Last Admin: 03/25/17 11:55 Dose: 1 tab Nicotine (Nicoderm Patch -) 14 mg TD DAILY [facility] Last Admin: 03/25/17 11:55 Dose: 14 mg Nystatin (Nystop Powder -) 1 applic TP BID [facility] Last Admin: 03/25/17 21:35 Dose: 1 applic Ondansetron HCl (Zofran Odt -) 8 mg SL Q8H PRN PRN Reason: NAUSEA AND/OR VOMITING Quetiapine Fumarate (Seroquel Xr -) 300 mg PO HS@2000 [facility] Last Admin: 03/25/17 20:12 Dose: 300 mg Ranitidine HCl (Zantac -) 150 mg PO DAILY [facility] Last Admin: 03/25/17 11:55 Dose: 150 mg Sertraline HCl (Zoloft -) 100 mg PO BID [facility] Last Admin: 03/25/17 21:00 Dose: 100 mg Sodium Chloride ([place] Nasal [place] -) 2 spray NS BID PRN PRN Reason: NASAL CONGESTION Last Admin: 03/25/17 11:56 Dose: 2 sprays Thiamine HCl (Vitamin B1 -) 100 mg PO DAILY [facility] Last Admin: 03/25/17 11:55 Dose: 100 mg Constitutional: Yes: Awake and responsive Eyes: Yes: WNL, Conjunctiva Clear, EOM Intact HENT: Yes: Trach intact Neck: Yes: Supple, Trachea Midline Cardiovascular: Yes: Regular Rate and Rhythm Respiratory: Yes: scattered rhonchi ...Inspection: Yes: WNL ...Clubbing: No Gastrointestinal: Yes: (+) NS, soft Renal/: Yes: WNL Musculoskeletal: Yes: WNL Extremities: Yes: WNL Edema: No Peripheral Pulses WNL: Yes Integumentary: Yes: WNL Neurological: Yes: WNL, Alert, Oriented ...Motor Strength: WNL Psychiatric: Yes: WNL, Alert, Oriented Labs: IMP: NSCLC - Adenocarcinoma s/p R VATS/Wedge Resection/CT placement now removed 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 HTN CAD Alcohol Abuse/Dependence Problem List - Problems (1) Alcohol dependence Code(s): F10.20 - ALCOHOL DEPENDENCE, UNCOMPLICATED Qualifiers: Substance use status: with intoxication Complication of substance- induced condition: with unspecified complication Qualified Code(s): F10.229 - Alcohol dependence with intoxication, unspecified; F10.229 - Alcohol dependence with intoxication, unspecified; F10.229 - Alcohol dependence with intoxication, unspecified (2) COPD (chronic obstructive pulmonary disease) Code(s): J44.9 - CHRONIC OBSTRUCTIVE PULMONARY DISEASE, UNSPECIFIED Qualifiers : COPD type: unspecified COPD Qualified Code(s): J44.9 - Chronic obstructive pulmonary disease, unspecified; J44.9 - Chronic obstructive pulmonary disease, unspecified; J44.9 - Chronic obstructive pulmonary disease, unspecified; J44.9 - Chronic obstructive pulmonary disease, unspecified (3) Cough Code(s): R05 - COUGH (4) Lung cancer Code(s): C34.90 - MALIGNANT NEOPLASM OF UNSP PART OF UNSP BRONCHUS OR LUNG Qualifiers: Laterality: unspecified laterality Lung location: overlapping sites Qualified Code(s): C34.80 - Malignant neoplasm of overlapping sites of unspecified bronchus and lung; C34.80 - Malignant neoplasm of overlapping sites of unspecified bronchus and lung; C34.80 - Malignant neoplasm of overlapping sites of unspecified bronchus and lung; C34.80 - Malignant neoplasm of overlapping sites of unspecified bronchus and lung (5) Nicotine dependence Code(s): F17.200 - NICOTINE DEPENDENCE, UNSPECIFIED, UNCOMPLICATED (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 Assessment/Plan Trach collar O2 Chest PT PT BD TX PRN Enteral feeds SQ Heparin D/C planning Dr Esquivel Problem List - Problems (1) Alcohol dependence Code(s): F10.20 - ALCOHOL DEPENDENCE, UNCOMPLICATED Qualifiers: Substance use status: with intoxication Complication of substance-induced condition: with unspecified complication Qualified Code(s): F10.229 - Alcohol dependence with intoxication, unspecified (2) Cough Code(s): R05 - COUGH (3) Lung cancer Code(s): C34.90 - MALIGNANT NEOPLASM OF UNSP PART OF UNSP BRONCHUS OR LUNG Qualifiers: Laterality: unspecified laterality Lung location: overlapping sites Qualified Code(s): C34.80 - Malignant neoplasm of overlapping sites of unspecified bronchus and lung (4) COPD (chronic obstructive pulmonary disease) Code(s): J44.9 - CHRONIC OBSTRUCTIVE PULMONARY DISEASE, UNSPECIFIED Qualifiers: COPD type: unspecified COPD Qualified Code(s): J44.9 - Chronic obstructive pulmonary disease, unspecified (5) Nicotine dependence Code(s): F17.200 - NICOTINE DEPENDENCE, UNSPECIFIED, UNCOMPLICATED
[2017-03-26] MEDS: ZINC OXIDE 20% TOPICAL OINTMENT 30 GM TUBE TP SCH ×2 (11:50→22:13)
[2017-03-26] MEDS: chlordiazePOXIDE HCL 25 MG CAPSULE PO PRN ×2 (11:53→20:20)
[2017-03-26] MEDS: THIAMINE HCL 100 MG TABLET (FP) PO SCH (11:53)
[2017-03-26] MEDS: NYSTATIN POWDER 100,000 UNITS/GM - 15 GM TOPICAL POWDER TP SCH ×2 (11:53→22:13)
[2017-03-26] MEDS: RANITIDINE HCL 150 MG TABLET (FP) PO SCH (11:53)
[2017-03-26] MEDS: SERTRALINE HCL 50 MG TABLET (FP) PO SCH ×2 (11:53→22:11)
[2017-03-26] MEDS: ALLOPURINOL 100 MG TABLET (FP) PO SCH (11:53)
[2017-03-26] MEDS: ASPIRIN 81 MG CHEWABLE TABLETS PO SCH (11:53)
[2017-03-26] MEDS: FOLIC ACID 1 MG TABLET (FP) PO SCH (11:54)
[2017-03-26] MEDS: BACITRACIN 15 GM TUBE TOPICAL OINTMENT TP SCH ×2 (11:54→22:12)
[2017-03-26] MEDS: amLODIPine BESYLATE 10 MG TABLET (FP) PO SCH (11:54)
[2017-03-26] MEDS: MULTIVITAMINS (DAILY MVI) TABLET (FP) PO SCH (11:54)
[2017-03-26] MEDS: NICOTINE 14 MG/24 HOURS TOPICAL PATCH TD SCH (11:54)
[2017-03-26] MEDS: METOPROLOL TARTRATE 25 MG TABLET (FP) PO SCH ×2 (11:54→22:11)
--- NOTE | 2017-03-26 12:24 | PN ---
Progress Note, BRUSH OR BROOM CUTTER - Note Progress Note: Per nursing note yesterday: Patient pulled out trach at 0105, RAPID RESPONSE innitiated. DR MOORE reinserted #8 tracheostomy. After reinsert trach, patient vomited. zofran 4mg iv push was given. cxr portable done. Pt continuously trying to get out of bed today. Case reviewed with PMD who will discuss plan for TEP with Dr. Lucero. Trial deferred for now.
[2017-03-26] MEDS: ALBUTEROL SO4 0.083% IH SOL 2.5 MG/3 ML VIAL.NEB. NEB PRN ×2 (13:56→22:10)
[2017-03-26] MEDS: SODIUM CHLORIDE NASAL SPRAY 44 ML BOTTLE NS PRN (17:52)
--- NOTE | 2017-03-26 19:25 | PN ---
Teaching Attending Note Name of Resident: Gloria Zaldivar ATTENDING PHYSICIAN STATEMENT I saw and evaluated the patient. I reviewed the resident's note and discussed the case with the resident. I agree with the resident's findings and plan as documented. SUBJECTIVE: Events noted over night. Patient is getting agitated at nights. OBJECTIVE: Vital Signs Temperature 98.0 F 03/26/17 13:58 Pulse Rate 75 03/26/17 13:58 Respiratory Rate 20 03/26/17 09:00 Blood Pressure 132/67 03/26/17 13:58 O2 Sat by Pulse Oximetry (%) 97 03/26/17 09:35 CBCD WBC 8.5 K/mm3 (4.0-10.0) 03/22/17 06:37 RBC 3.61 M/mm3 (4.00-5.60) L 03/22/17 06:37 Hgb 10.9 GM/dL (11.7-16.9) L 03/22/17 06:37 Hct 32.6 % (35.4-49) L 03/22/17 06:37 MCV 90.3 fl (80-96) 03/22/17 06:37 MCHC 33.5 g/dl (32.0-35.9) 03/22/17 06:37 RDW 13.6 % (11.9-15.9) 03/22/17 06:37 Plt Count 201 K/MM3 (134-434) 03/22/17 06:37 MPV 10.0 fl (7.5-11.1) 03/22/17 06:37 CMP Sodium 139 mmol/L (136-145) 03/22/17 06:37 Potassium 4.2 mmol/L (3.5-5.1) 03/22/17 06:37 Chloride 104 mmol/L (98-107) 03/22/17 06:37 Carbon Dioxide 27 mmol/L (21-32) 03/22/17 06:37 Anion Gap 8 (8-16) 03/22/17 06:37 BUN 11 mg/dL (7-18) 03/22/17 06:37 Creatinine 1.1 mg/dL (0.7-1.3) 03/22/17 06:37 Creat Clearance w eGFR > 60 (>60) 03/10/17 06:50 Random Glucose 104 mg/dL (74-106) 03/22/17 06:37 Calcium 8.6 mg/dL (8.5-10.1) 03/22/17 06:37 Total Bilirubin 0.5 mg/dL (0.2-1.0) D 03/10/17 06:50 AST 23 U/L (15-37) 03/10/17 06:50 ALT 29 U/L (12-78) 03/10/17 06:50 Alkaline Phosphatase 96 U/L (45-117) 03/10/17 06:50 Total Protein 7.0 g/dl (6.4-8.2) 03/10/17 06:50 Albumin 2.7 g/dl (3.4-5.0) L D 03/10/17 06:50 CARDIAC ENZYMES Creatine Kinase 71 IU/L (39-308) 02/11/17 10:24 Troponin I < 0.02 ng/ml (0.00-0.05) 02/11/17 10:24 Current Medications Generic Name Dose Route Start Last Admin Trade Name Freq PRN Reason Stop Dose Admin Acetylcysteine 600 mg 03/23/17 22:00 03/26/17 13:56 Mucomyst 20 Oral / Inh Use Only* NEB 600 mg TIDR JUNIOR Administration Albuterol Sulfate 1 amp 03/23/17 14:18 03/26/17 13:56 Ventolin 0.083% Nebulizer Soln - NEB 1 amp Q6H PRN Administration WHEEZING Albuterol Sulfate 1 amp 03/23/17 14:18 Ventolin 0.5% - NEB Q4H PRN SHORT OF BREATH/WHEEZING Allopurinol 100 mg 03/24/17 10:00 03/26/17 11:53 Zyloprim - PO 100 mg DAILY JUNIOR Administration Amlodipine Besylate 10 mg 03/24/17 10:00 03/26/17 11:54 Norvasc - PO 10 mg DAILY JUNIOR Administration Aspirin 81 mg 03/24/17 10:00 03/26/17 11:53 Asa - PO 81 mg DAILY JUNIOR Administration Bacitracin 1 applic 03/23/17 22:00 03/26/17 11:54 Bacitracin - TP 1 applic BID JUNIOR Administration Chlordiazepoxide HCl 25 mg 03/23/17 22:00 03/25/17 21:00 Librium - PO 25 mg HS JUNIOR Administration Chlordiazepoxide HCl 25 mg 03/23/17 18:54 03/26/17 11:53 Librium - PO 25 mg Q6H PRN Administration AGITATION Folic Acid 1 mg 03/24/17 10:00 03/26/17 11:54 Folic Acid - PO 1 mg DAILY JUNIOR Administration Gabapentin 400 mg 03/23/17 22:00 03/26/17 17:51 Neurontin - PO 400 mg TID JUNIOR Administration Heparin Sodium (Porcine) 5,000 unit 03/23/17 22:00 03/26/17 17:51 Heparin - SQ 5,000 unit TID JUNIOR Administration Ibuprofen 400 mg 03/23/17 14:18 03/23/17 22:31 Motrin - PO 400 mg Q6H PRN Administration PAIN Metoprolol Tartrate 25 mg 03/23/17 22:00 03/26/17 11:54 Lopressor - PO 25 mg BID JUNIOR Administration Multi-Ingredient Lotion 1 applic 03/23/17 14:18 Eucerin (Large Jar) - TP DAILY PRN DRY SKIN Multi-Ingredient Ointment 1 applic 03/23/17 22:00 03/26/17 11:50 Zinc Oxide TP 1 applic BID JUNIOR Administration Multivitamins/Minerals/Vitamin C 1 tab 03/24/17 10:00 03/26/17 11:54 Tab-A-Vit - PO 1 tab DAILY JUNIOR Administration Nicotine 14 mg 03/23/17 15:00 03/26/17 11:54 Nicoderm Patch - TD 14 mg DAILY JUNIOR Administration Nystatin 1 applic 03/23/17 22:00 03/26/17 11:53 Nystop Powder - TP 1 applic BID JUNIOR Administration Ondansetron HCl 8 mg 03/23/17 14:18 Zofran Odt - SL Q8H PRN NAUSEA AND/OR VOMITING Quetiapine Fumarate 300 mg 03/23/17 20:00 03/25/17 20:12 Seroquel Xr - PO 300 mg HS@2000 JUNIOR Administration Ranitidine HCl 150 mg 03/24/17 10:00 03/26/17 11:53 Zantac - PO 150 mg DAILY JUNIOR Administration Sertraline HCl 100 mg 03/23/17 22:00 03/26/17 11:53 Zoloft - PO 100 mg BID JUNIOR Administration Sodium Chloride 2 spray 03/23/17 14:18 03/26/17 17:52 [place] Nasal [place] - NS 2 sprays BID PRN Administration NASAL CONGESTION Thiamine HCl 100 mg 03/24/17 10:00 03/26/17 11:53 Vitamin B1 - PO 100 mg DAILY JUNIOR Administration Home Medications Medication Instructions Recorded Amlodipine Besylate 10 mg PO DAILY 12/23/16 Atorvastatin Ca [Lipitor] 10 mg PO HS 12/23/16 Gabapentin 800 mg PO TID 12/23/16 Quetiapine Fumarate "Xr" [Seroquel 300 mg PO ACDIN 12/23/16 Xr -] Sertraline HCl [Zoloft] 100 mg PO BID 12/23/16 Folic Acid 1 mg PO DAILY 01/02/17 Allopurinol [Zyloprim -] 100 mg PO DAILY 02/12/17 Aspirin [ASA -] 81 mg PO DAILY 02/12/17 PE: per resident's note ASSESSMENT AND PLAN: Patient is a 56 y/o gentleman with h/o Nicotine dependence, HTN, CAD s/p Stenting , hyperlipidemia and recently diagnosed R lung adenocarcinoma who presented for pulmonary resection. 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 POD#2 tracheo- esophageal puncture done, Nguyen Crain on the case , discussed with possible tx the patient to [facility]. Possible RT after placement at [facility] Cont. Neurontin. # s/p Acute hypoxic resp failure,resolved.on O2 through trach. continue # Acute delirium improving but continues on and off , off restraints on and off , continues to get agitated and pull everything , will continue to monitor him. ON seroquel increased dose of seroquel 300 xr , continue librium standing at Hs and Prn during the day continue. continue Zoloft as well Dr. Branch and psych revaluation appreciated. will recall # HTN -cont norvasc and Metoprolol. # CAD: aspirin # Nicotine dependence : nicotine patch . DVT px with heparin possible tx to [facility].for further care.
--- NOTE | 2017-03-26 19:56 | PN ---
Physical Exam: SUBJECTIVE: Patient seen and examined. Pt AAOx3; made himself DNR/DNV overnight. Pt's 1:1 D/Michael. During the afternoon, pt became agitated requiring wrist restraints. OBJECTIVE: Vital Signs Period Temp Pulse Resp BP Sys/Clay Pulse Ox Last 24 Hr 98.0 F-99.8 F 67-85 20-20 113-132/66-72 97-98 GENERAL: Awake, alert, NAD, pleasant, calm, comfortable. NECK: with well healing scar. Trach tube and collar in place. LUNGS: Breath sounds equal, clear to auscultation bilaterally, no accessory muscle use. HEART: Regular rate and rhythm, S1, S2 without murmur, rub or gallop. ABDOMEN: Soft, nontender, nondistended. G-tube in place. EXTREMITIES: Left anterior thigh flap site clean and dry. Right anterior thigh wound C/D/I. Warm, well-perfused, no edema. SKIN: Warm, dry, normal turgor, no rashes. Active Medications Generic Name Dose Route Start Last Admin Trade Name Freq PRN Reason Stop Dose Admin Acetylcysteine 600 mg 03/23/17 22:00 03/26/17 13:56 Mucomyst 20 Oral / Inh Use Only* NEB 600 mg TIDR JUNIOR Administration Albuterol Sulfate 1 amp 03/23/17 14:18 03/26/17 13:56 Ventolin 0.083% Nebulizer Soln - NEB 1 amp Q6H PRN Administration WHEEZING Albuterol Sulfate 1 amp 03/23/17 14:18 Ventolin 0.5% - NEB Q4H PRN SHORT OF BREATH/WHEEZING Allopurinol 100 mg 03/24/17 10:00 03/26/17 11:53 Zyloprim - PO 100 mg DAILY JUNIOR Administration Amlodipine Besylate 10 mg 03/24/17 10:00 03/26/17 11:54 Norvasc - PO 10 mg DAILY JUNIOR Administration Aspirin 81 mg 03/24/17 10:00 03/26/17 11:53 Asa - PO 81 mg DAILY JUNIOR Administration Bacitracin 1 applic 03/23/17 22:00 03/26/17 11:54 Bacitracin - TP 1 applic BID JUNIOR Administration Chlordiazepoxide HCl 25 mg 03/23/17 22:00 03/25/17 21:00 Librium - PO 25 mg HS JUNIOR Administration Chlordiazepoxide HCl 25 mg 03/23/17 18:54 03/26/17 11:53 Librium - PO 25 mg Q6H PRN Administration AGITATION Folic Acid 1 mg 03/24/17 10:00 03/26/17 11:54 Folic Acid - PO 1 mg DAILY JUNIOR Administration Gabapentin 400 mg 03/23/17 22:00 03/26/17 17:51 Neurontin - PO 400 mg TID JUNIOR Administration Heparin Sodium (Porcine) 5,000 unit 03/23/17 22:00 03/26/17 17:51 Heparin - SQ 5,000 unit TID JUNIOR Administration Ibuprofen 400 mg 03/23/17 14:18 03/23/17 22:31 Motrin - PO 400 mg Q6H PRN Administration PAIN Metoprolol Tartrate 25 mg 03/23/17 22:00 03/26/17 11:54 Lopressor - PO 25 mg BID JUNIOR Administration Multi-Ingredient Lotion 1 applic 03/23/17 14:18 Eucerin (Large Jar) - TP DAILY PRN DRY SKIN Multi-Ingredient Ointment 1 applic 03/23/17 22:00 03/26/17 11:50 Zinc Oxide TP 1 applic BID JUNIOR Administration Multivitamins/Minerals/Vitamin C 1 tab 03/24/17 10:00 03/26/17 11:54 Tab-A-Vit - PO 1 tab DAILY JUNIOR Administration Nicotine 14 mg 03/23/17 15:00 03/26/17 11:54 Nicoderm Patch - TD 14 mg DAILY JUNIOR Administration Nystatin 1 applic 03/23/17 22:00 03/26/17 11:53 Nystop Powder - TP 1 applic BID JUNIOR Administration Ondansetron HCl 8 mg 03/23/17 14:18 Zofran Odt - SL Q8H PRN NAUSEA AND/OR VOMITING Quetiapine Fumarate 300 mg 03/23/17 20:00 03/25/17 20:12 Seroquel Xr - PO 300 mg HS@2000 JUNIOR Administration Ranitidine HCl 150 mg 03/24/17 10:00 03/26/17 11:53 Zantac - PO 150 mg DAILY JUNIOR Administration Sertraline HCl 100 mg 03/23/17 22:00 03/26/17 11:53 Zoloft - PO 100 mg BID JUNIOR Administration Sodium Chloride 2 spray 03/23/17 14:18 03/26/17 17:52 [place] Nasal [place] - NS 2 sprays BID PRN Administration NASAL CONGESTION Thiamine HCl 100 mg 03/24/17 10:00 03/26/17 11:53 Vitamin B1 - PO 100 mg DAILY JUNIOR Administration IMAGIN03/26/17 CXR -> no significant change since prior study. Clearing of contrast in the splenic flexure noted. No acute chest pathology. 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 # Tracheo-esophageal puncture - POD 3 - use and laryngeal speech training postponed until ENT (Dr. Lucero) or Pulm Crit Care (Dr. Manjarrez) can be present # acute delirium - mental status improved - continue Librium and Seroquel # acute hypoxic respiratory failure - resolved, trach in place - continue mucomyst with albuterol nebs # Laryngeal squamous cell Ca s/p laryngectomy with left anterolateral thigh flap pharyngeal reconstruction on 02/20/17 - continue Motrin prn and Neurontin - suction q3-4hrs and prn - O2 prn - pt will require 6-7 weeks of daily radiation therapy -> Administration researching options for how this can work (regarding transport, rehab, insurance , etc) # htn - continue Norvasc and Lopressor # CAD s/p 2 stents - continue ASA # gout - continue Allopurinol # nicotine dependence - continue nicoderm patch 14mg # FEN - Fluids: encourage po - Electolytes: wnl, continue to monitor. - Nutrition: soft diet # Prophylaxis - DVT ppx with Heparin TID - deconditioning ppx with PT and Chest PT Visit type - Emergency Visit Emergency Visit: Yes ED Registration Date: 02/11/17 Care time: The patient presented to the Emergency Department on the above date and was hospitalized for further evaluation of their emergent condition. - New Patient This patient is new to me today: No - Critical Care Critical Care patient: No
[2017-03-26] MEDS: chlordiazePOXIDE HCL 25 MG CAPSULE PO SCH (22:12)
[2017-03-27] MEDS: chlordiazePOXIDE HCL 25 MG CAPSULE PO PRN (06:09)
[2017-03-27] MEDS: GABAPENTIN 400 MG CAPSULE (FP) PO SCH ×3 (06:09→21:06)
[2017-03-27] MEDS: HEPARIN NA (PORCINE) 5,000 UNITS/ML 1ML VIAL SQ SCH ×3 (06:09→21:06)
[2017-03-27] MEDS: ACETYLCYSTEINE 20% 200MG/ML 4 ML VIAL *FOR ORAL / INH USE ONLY NEB SCH ×3 (06:20→22:51)
[2017-03-27] MEDS: ALBUTEROL SO4 0.083% IH SOL 2.5 MG/3 ML VIAL.NEB. NEB PRN ×2 (06:20→22:51)
[2017-03-27 07:23] LABS: MCH 30.3 pg (25.7-33.7); MCHC 33.2 g/dl (32.0-35.9); MEAN CELL VOLUME 91.2 fl (80-96); MEAN PLT VOLUME 9.8 fl (7.5-11.1); PLATELET COUNT 202 K/MM3 (134-434); RDW 13.7 % (11.9-15.9); WHITE BLOOD COUNT 8.2 K/mm3 (4.0-10.0)
[2017-03-27 07:31] LABS: ANION GAP 7 (8-16); CALCIUM 8.7 mg/dL (8.5-10.1); CO2 26 mmol/L (21-32); CREATININE 0.9 mg/dL (0.7-1.3); GLUCOSE,RANDOM 105 mg/dL (74-106)
--- NOTE | 2017-03-27 10:22 | PN ---
Teaching Attending Note Name of Resident: Gloria Zaldivar ATTENDING PHYSICIAN STATEMENT I saw and evaluated the patient. I reviewed the resident's note and discussed the case with the resident. I agree with the resident's findings and plan as documented. SUBJECTIVE: No new events. OBJECTIVE: Vital Signs Temperature 98.2 F 03/26/17 18:00 Pulse Rate 75 03/27/17 04:50 Respiratory Rate 18 03/27/17 04:50 Blood Pressure 138/89 03/27/17 04:50 O2 Sat by Pulse Oximetry (%) 97 03/26/17 22:30 CBCD WBC 8.2 K/mm3 (4.0-10.0) 03/27/17 06:30 RBC 3.39 M/mm3 (4.00-5.60) L 03/27/17 06:30 Hgb 10.3 GM/dL (11.7-16.9) L 03/27/17 06:30 Hct 30.9 % (35.4-49) L 03/27/17 06:30 MCV 91.2 fl (80-96) 03/27/17 06:30 MCHC 33.2 g/dl (32.0-35.9) 03/27/17 06:30 RDW 13.7 % (11.9-15.9) 03/27/17 06:30 Plt Count 202 K/MM3 (134-434) 03/27/17 06:30 MPV 9.8 fl (7.5-11.1) 03/27/17 06:30 CMP Sodium 139 mmol/L (136-145) 03/27/17 06:30 Potassium 4.0 mmol/L (3.5-5.1) 03/27/17 06:30 Chloride 106 mmol/L (98-107) 03/27/17 06:30 Carbon Dioxide 26 mmol/L (21-32) 03/27/17 06:30 Anion Gap 7 (8-16) L 03/27/17 06:30 BUN 12 mg/dL (7-18) 03/27/17 06:30 Creatinine 0.9 mg/dL (0.7-1.3) 03/27/17 06:30 Creat Clearance w eGFR > 60 (>60) 03/10/17 06:50 Random Glucose 105 mg/dL (74-106) 03/27/17 06:30 Calcium 8.7 mg/dL (8.5-10.1) 03/27/17 06:30 Total Bilirubin 0.5 mg/dL (0.2-1.0) D 03/10/17 06:50 AST 23 U/L (15-37) 03/10/17 06:50 ALT 29 U/L (12-78) 03/10/17 06:50 Alkaline Phosphatase 96 U/L (45-117) 03/10/17 06:50 Total Protein 7.0 g/dl (6.4-8.2) 03/10/17 06:50 Albumin 2.7 g/dl (3.4-5.0) L D 03/10/17 06:50 CARDIAC ENZYMES Creatine Kinase 71 IU/L (39-308) 02/11/17 10:24 Troponin I < 0.02 ng/ml (0.00-0.05) 02/11/17 10:24 Current Medications Generic Name Dose Route Start Last Admin Trade Name Freq PRN Reason Stop Dose Admin Acetylcysteine 600 mg 03/23/17 22:00 03/27/17 06:20 Mucomyst 20 Oral / Inh Use Only* NEB 600 mg TIDR JUNIOR Administration Albuterol Sulfate 1 amp 03/23/17 14:18 03/27/17 06:20 Ventolin 0.083% Nebulizer Soln - NEB 1 amp Q6H PRN Administration WHEEZING Albuterol Sulfate 1 amp 03/23/17 14:18 Ventolin 0.5% - NEB Q4H PRN SHORT OF BREATH/WHEEZING Allopurinol 100 mg 03/24/17 10:00 03/26/17 11:53 Zyloprim - PO 100 mg DAILY JUNIOR Administration Amlodipine Besylate 10 mg 03/24/17 10:00 03/26/17 11:54 Norvasc - PO 10 mg DAILY JUNIOR Administration Aspirin 81 mg 03/24/17 10:00 03/26/17 11:53 Asa - PO 81 mg DAILY JUNIOR Administration Bacitracin 1 applic 03/23/17 22:00 03/26/17 22:12 Bacitracin - TP 1 applic BID JUNIOR Administration Chlordiazepoxide HCl 25 mg 03/23/17 22:00 03/26/17 22:12 Librium - PO Not Given HS JUNIOR Chlordiazepoxide HCl 25 mg 03/23/17 18:54 03/27/17 06:09 Librium - PO 25 mg Q6H PRN Administration AGITATION Folic Acid 1 mg 03/24/17 10:00 03/26/17 11:54 Folic Acid - PO 1 mg DAILY JUNIOR Administration Gabapentin 400 mg 03/23/17 22:00 03/27/17 06:09 Neurontin - PO 400 mg TID JUNIOR Administration Heparin Sodium (Porcine) 5,000 unit 03/23/17 22:00 03/27/17 06:09 Heparin - SQ 5,000 unit TID JUNIOR Administration Ibuprofen 400 mg 03/23/17 14:18 03/23/17 22:31 Motrin - PO 400 mg Q6H PRN Administration PAIN Metoprolol Tartrate 25 mg 03/23/17 22:00 03/26/17 22:11 Lopressor - PO 25 mg BID JUNIOR Administration Multi-Ingredient Lotion 1 applic 03/23/17 14:18 Eucerin (Large Jar) - TP DAILY PRN DRY SKIN Multi-Ingredient Ointment 1 applic 03/23/17 22:00 03/26/17 22:13 Zinc Oxide TP 1 applic BID JUNIOR Administration Multivitamins/Minerals/Vitamin C 1 tab 03/24/17 10:00 03/26/17 11:54 Tab-A-Vit - PO 1 tab DAILY JUNIOR Administration Nicotine 14 mg 03/23/17 15:00 03/26/17 11:54 Nicoderm Patch - TD 14 mg DAILY JUNIOR Administration Nystatin 1 applic 03/23/17 22:00 03/26/17 22:13 Nystop Powder - TP 1 applic BID JUNIOR Administration Ondansetron HCl 8 mg 03/23/17 14:18 Zofran Odt - SL Q8H PRN NAUSEA AND/OR VOMITING Quetiapine Fumarate 300 mg 03/23/17 20:00 03/26/17 20:20 Seroquel Xr - PO 300 mg HS@2000 JUNIOR Administration Ranitidine HCl 150 mg 03/24/17 10:00 03/26/17 11:53 Zantac - PO 150 mg DAILY JUNIOR Administration Sertraline HCl 100 mg 03/23/17 22:00 03/26/17 22:11 Zoloft - PO 100 mg BID JUNIOR Administration Sodium Chloride 2 spray 03/23/17 14:18 03/26/17 17:52 [place] Nasal [place] - NS 2 sprays BID PRN Administration NASAL CONGESTION Thiamine HCl 100 mg 03/24/17 10:00 03/26/17 11:53 Vitamin B1 - PO 100 mg DAILY JUNIOR Administration Home Medications Medication Instructions Recorded Amlodipine Besylate 10 mg PO DAILY 12/23/16 Atorvastatin Ca [Lipitor] 10 mg PO HS 12/23/16 Gabapentin 800 mg PO TID 12/23/16 Quetiapine Fumarate "Xr" [Seroquel 300 mg PO ACDIN 12/23/16 Xr -] Sertraline HCl [Zoloft] 100 mg PO BID 12/23/16 Folic Acid 1 mg PO DAILY 01/02/17 Allopurinol [Zyloprim -] 100 mg PO DAILY 02/12/17 Aspirin [ASA -] 81 mg PO DAILY 02/12/17 PE: per resident's note ASSESSMENT AND PLAN: Patient is a 56 y/o gentleman with h/o Nicotine dependence, HTN, CAD s/p Stenting , hyperlipidemia and recently diagnosed R lung adenocarcinoma who presented for pulmonary resection. 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 POD#3 tracheo- esophageal puncture done, Nguyen Crain on the case , discussed with possible tx the patient to [facility]. Possible RT after placement at [facility]. Cont. Neurontin. # s/p Acute hypoxic resp failure,resolved.on O2 through trach. continue # Acute delirium improving but continues on and off , off restraints on and off , continues to get agitated and pull everything , will continue to monitor him. ON seroquel increased dose of seroquel 300 xr , continue librium standing at Hs and Prn during the day continue. continue Zoloft as well. dr. Branch and psych revaluation appreciated. will recall # HTN -cont norvasc and Metoprolol. # CAD: aspirin # Nicotine dependence : nicotine patch . DVT px with heparin possible tx to [facility].for further care.
[2017-03-27] MEDS: BACITRACIN 15 GM TUBE TOPICAL OINTMENT TP SCH ×2 (10:39→21:07)
[2017-03-27] MEDS ORDERED: PT OWN MED DRAWER 7, Y5N ONE ×3 (10:45→19:27)
[2017-03-27] MEDS: ASPIRIN 81 MG CHEWABLE TABLETS PO SCH (10:53)
[2017-03-27] MEDS: FOLIC ACID 1 MG TABLET (FP) PO SCH (10:53)
[2017-03-27] MEDS: THIAMINE HCL 100 MG TABLET (FP) PO SCH (10:53)
[2017-03-27] MEDS: METOPROLOL TARTRATE 25 MG TABLET (FP) PO SCH ×2 (10:53→21:06)
[2017-03-27] MEDS: ALLOPURINOL 100 MG TABLET (FP) PO SCH (10:54)
[2017-03-27] MEDS: RANITIDINE HCL 150 MG TABLET (FP) PO SCH (10:54)
[2017-03-27] MEDS: MULTIVITAMINS (DAILY MVI) TABLET (FP) PO SCH (10:54)
[2017-03-27] MEDS: SERTRALINE HCL 50 MG TABLET (FP) PO SCH ×2 (10:54→21:06)
[2017-03-27] MEDS: amLODIPine BESYLATE 10 MG TABLET (FP) PO SCH (10:54)
[2017-03-27] MEDS: ZINC OXIDE 20% TOPICAL OINTMENT 30 GM TUBE TP SCH ×2 (10:55→21:09)
[2017-03-27] MEDS: NICOTINE 14 MG/24 HOURS TOPICAL PATCH TD SCH (10:55)
[2017-03-27] MEDS: NYSTATIN POWDER 100,000 UNITS/GM - 15 GM TOPICAL POWDER TP SCH ×2 (10:55→21:09)
--- NOTE | 2017-03-27 13:57 | PN ---
Progress Note (short form) - Note Progress Note: PULMONARY CALM/NOT AGITATED RAPID RESPONSE CALLED YESTERDAY DUE TO SELF DECANNULATION VSS/AFEBRILE ANICTERIC/TRACH W O2 COLLAR CLEAR ANTERIOR BREATH SOUNDS S1S2 BS+ SOFT NO EDEMA LABS/MEDS/NOTES/IMAGES REVIEWED 1) newly diagnosed RUL adenocarcinoma - s/p vats wedge resection/right - Dilaudid/Oxycodone for pain - incentive spirometry - O2 prn 2) Supraglottic lesion - s/p laryngoscopy biopsy revealing squamous cell Ca - s/p total laryngectomy and radical neck dissection revealing stage 4b disease - needs adjuvant therapy - keep trach in place for now 3) ETOH abuse 4) CAD s/p PCI stents 5) DVT Prophylaxis - Heparin 5,000U SQ BID - sheree Anni MARTINEZ MD
--- NOTE | 2017-03-27 14:55 | PN ---
Progress Note, [employer] REPRESENTATIVE - Note Progress Note: Case reviewed with PMD/ccc/ and briefly with Dr. Lucero. Trial deferred for now , due to risk of removing/replacing trach in order to use TEP. Pt should be encouraged not to remove trach, and since pt vomited following placement of trach on 03/25, increasing risk of aspiration with TEP present. Once tracheostomy tube can be safely left out, I believe pt will be a better candidate for safe TEP use and possibly the hansfree version.
--- NOTE | 2017-03-27 19:49 | PN ---
Physical Exam: SUBJECTIVE: Patient seen and examined. Pt pulled out his trach once today. Pt requiring wrist restraints for protection from self. OBJECTIVE: Vital Signs Period Temp Pulse Resp BP Sys/Clay Pulse Ox Last 24 Hr 98.1 F-98.9 F 71-78 18-20 108-178/69-89 96-100 GENERAL: Awake, alert, NAD, pleasant, calm, comfortable. Wearing restraints. NECK: Well healing scar. Trach tube and collar in place. LUNGS: Breath sounds equal, clear to auscultation bilaterally, no accessory muscle use. HEART: Regular rate and rhythm, S1, S2 without murmur, rub or gallop. ABDOMEN: Soft, nontender, nondistended. G-tube in place. EXTREMITIES: Left anterior thigh flap site clean and dry. Right anterior thigh wound C/D/I. Warm, well-perfused, no edema. SKIN: Warm, dry, normal turgor, no rashes. Laboratory Results - last 24 hr 03/27/17 03/27/17 06:30 06:30 WBC 8.2 RBC 3.39 L Hgb 10.3 L Hct 30.9 L MCV 91.2 MCH 30.3 MCHC 33.2 RDW 13.7 Plt Count 202 MPV 9.8 Sodium 139 Potassium 4.0 Chloride 106 Carbon Dioxide 26 Anion Gap 7 L BUN 12 Creatinine 0.9 Random Glucose 105 Calcium 8.7 Active Medications Generic Name Dose Route Start Last Admin Trade Name Freq PRN Reason Stop Dose Admin Acetylcysteine 600 mg 03/23/17 22:00 03/27/17 13:45 Mucomyst 20 Oral / Inh Use Only* NEB 600 mg TIDR JUNIOR Administration Albuterol Sulfate 1 amp 03/23/17 14:18 03/27/17 06:20 Ventolin 0.083% Nebulizer Soln - NEB 1 amp Q6H PRN Administration WHEEZING Albuterol Sulfate 1 amp 03/23/17 14:18 Ventolin 0.5% - NEB Q4H PRN SHORT OF BREATH/WHEEZING Allopurinol 100 mg 03/24/17 10:00 03/27/17 10:54 Zyloprim - PO 100 mg DAILY JUNIOR Administration Amlodipine Besylate 10 mg 03/24/17 10:00 03/27/17 10:54 Norvasc - PO 10 mg DAILY JUNIOR Administration Aspirin 81 mg 03/24/17 10:00 03/27/17 10:53 Asa - PO 81 mg DAILY JUNIOR Administration Bacitracin 1 applic 03/23/17 22:00 03/27/17 10:39 Bacitracin - TP 1 applic BID JUNIOR Administration Chlordiazepoxide HCl 25 mg 03/23/17 22:00 03/26/17 22:12 Librium - PO Not Given HS JUNIOR Chlordiazepoxide HCl 25 mg 03/23/17 18:54 03/27/17 06:09 Librium - PO 25 mg Q6H PRN Administration AGITATION Folic Acid 1 mg 03/24/17 10:00 03/27/17 10:53 Folic Acid - PO 1 mg DAILY JUNIOR Administration Gabapentin 400 mg 03/23/17 22:00 03/27/17 14:22 Neurontin - PO 400 mg TID JUNIOR Administration Heparin Sodium (Porcine) 5,000 unit 03/23/17 22:00 03/27/17 14:22 Heparin - SQ 5,000 unit TID JUNIOR Administration Ibuprofen 400 mg 03/23/17 14:18 03/23/17 22:31 Motrin - PO 400 mg Q6H PRN Administration PAIN Metoprolol Tartrate 25 mg 03/23/17 22:00 03/27/17 10:53 Lopressor - PO 25 mg BID JUNIOR Administration Multi-Ingredient Lotion 1 applic 03/23/17 14:18 Eucerin (Large Jar) - TP DAILY PRN DRY SKIN Multi-Ingredient Ointment 1 applic 03/23/17 22:00 03/27/17 10:55 Zinc Oxide TP 1 applic BID JUNIOR Administration Multivitamins/Minerals/Vitamin C 1 tab 03/24/17 10:00 03/27/17 10:54 Tab-A-Vit - PO 1 tab DAILY JUNIOR Administration Nicotine 14 mg 03/23/17 15:00 03/27/17 10:55 Nicoderm Patch - TD 14 mg DAILY JUNIOR Administration Nystatin 1 applic 03/23/17 22:00 03/27/17 10:55 Nystop Powder - TP 1 applic BID JUNIOR Administration Ondansetron HCl 8 mg 03/23/17 14:18 Zofran Odt - SL Q8H PRN NAUSEA AND/OR VOMITING Quetiapine Fumarate 300 mg 03/23/17 20:00 03/26/17 20:20 Seroquel Xr - PO 300 mg HS@2000 JUNIOR Administration Ranitidine HCl 150 mg 03/24/17 10:00 03/27/17 10:54 Zantac - PO 150 mg DAILY JUNIOR Administration Sertraline HCl 100 mg 03/23/17 22:00 03/27/17 10:54 Zoloft - PO 100 mg BID JUNIOR Administration Sodium Chloride 2 spray 03/23/17 14:18 03/26/17 17:52 [place] Nasal [place] - NS 2 sprays BID PRN Administration NASAL CONGESTION Thiamine HCl 100 mg 03/24/17 10:00 03/27/17 10:53 Vitamin B1 - PO 100 mg DAILY JUNIOR Administration IMAGIN03/26/17 CXR -> no significant change since prior study. Clearing of contrast in the splenic flexure noted. No acute chest pathology. 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 # Tracheo-esophageal puncture - Trial for laryngeal speech training deferred for now 2/2 risk of removing trach. - Pt encouraged not to remove trach as this will increase risk of aspiration with TEP present. - When tracheostomy tube can be permanently removed, pt will be a better candidate for laryngeal speech training. # acute delirium - mental status improved - continue Librium and Seroquel # acute hypoxic respiratory failure - resolved, trach in place - continue mucomyst with albuterol nebs # Laryngeal squamous cell Ca s/p laryngectomy with left anterolateral thigh flap pharyngeal reconstruction on 02/20/17 - continue Motrin prn and Neurontin - suction q3-4hrs and prn - O2 prn - pt will require 6-7 weeks of daily radiation therapy -> Administration researching options for transport, rehab, insurance, placement, etc. # normocytic anemia - stable # htn - continue Norvasc and Lopressor # CAD s/p 2 stents - continue ASA # gout - continue Allopurinol # nicotine dependence - continue nicoderm patch 14mg # FEN - Fluids: encourage po - Electolytes: wnl, continue to monitor. - Nutrition: soft diet # Prophylaxis - DVT ppx with Heparin TID - deconditioning ppx with PT and Chest PT Visit type - Emergency Visit Emergency Visit: Yes ED Registration Date: 02/11/17 Care time: The patient presented to the Emergency Department on the above date and was hospitalized for further evaluation of their emergent condition. - New Patient This patient is new to me today: No - Critical Care Critical Care patient: No
[2017-03-27] MEDS ORDERED: MELATONIN 5 MG TABLETS PO ONE (19:54)
[2017-03-27] MEDS: chlordiazePOXIDE HCL 25 MG CAPSULE PO SCH (21:06)
[2017-03-28] MEDS: GABAPENTIN 400 MG CAPSULE (FP) PO SCH ×3 (06:14→21:06)
[2017-03-28] MEDS: HEPARIN NA (PORCINE) 5,000 UNITS/ML 1ML VIAL SQ SCH ×3 (06:14→21:05)
[2017-03-28] MEDS: ACETYLCYSTEINE 20% 200MG/ML 4 ML VIAL *FOR ORAL / INH USE ONLY NEB SCH ×3 (06:50→22:14)
--- NOTE | 2017-03-28 10:18 | PN ---
Physical Exam: SUBJECTIVE: Patient seen and examined Patient is feeling better with no acute distress. No shortness of breath, no nausea or vomiting. comfortably lying in bed. OBJECTIVE: Vital Signs Temperature 98 F 03/28/17 06:41 Pulse Rate 64 03/28/17 06:41 Respiratory Rate 18 03/28/17 06:41 Blood Pressure 127/71 03/28/17 06:41 O2 Sat by Pulse Oximetry (%) 99 03/27/17 21:00 GENERAL: The patient is awake, alert, and fully oriented, in no acute distress. HEAD: Normal with no signs of trauma. EYES: PERRL, extraocular movements intact, sclera anicteric, conjunctiva clear. . ENT: Ears normal, positive for trach. NECK: Trachea midline, positive for trach. LUNGS: Breath sounds equal, clear to auscultation bilaterally, no wheezes, no crackles, no accessory muscle use. HEART: Regular rate and rhythm, S1, S2 without murmur, rub or gallop. ABDOMEN: Soft, nontender, nondistended, normoactive bowel sounds, no guarding, no rebound, no hepatosplenomegaly, no masses. EXTREMITIES: 2+ pulses, warm, well-perfused, no edema. NEUROLOGICAL: Cranial nerves II through XII grossly intact. Normal speech, gait not observed. PSYCH: Normal mood, normal affect. SKIN: Warm, dry, normal turgor, no rashes or lesions noted Active Medications Generic Name Dose Route Start Last Admin Trade Name Freq PRN Reason Stop Dose Admin Acetylcysteine 600 mg 03/23/17 22:00 03/28/17 06:50 Mucomyst 20 Oral / Inh Use Only* NEB 600 mg TIDR JUNIOR Administration Albuterol Sulfate 1 amp 03/23/17 14:18 03/27/17 22:51 Ventolin 0.083% Nebulizer Soln - NEB 1 amp Q6H PRN Administration WHEEZING Albuterol Sulfate 1 amp 03/23/17 14:18 Ventolin 0.5% - NEB Q4H PRN SHORT OF BREATH/WHEEZING Allopurinol 100 mg 03/24/17 10:00 03/27/17 10:54 Zyloprim - PO 100 mg DAILY JUNIOR Administration Amlodipine Besylate 10 mg 03/24/17 10:00 03/27/17 10:54 Norvasc - PO 10 mg DAILY JUNIOR Administration Aspirin 81 mg 03/24/17 10:00 03/27/17 10:53 Asa - PO 81 mg DAILY JUNIOR Administration Bacitracin 1 applic 03/23/17 22:00 03/27/17 21:07 Bacitracin - TP 1 applic BID JUNIOR Administration Chlordiazepoxide HCl 25 mg 03/23/17 22:00 03/27/17 21:06 Librium - PO 25 mg HS JUNIOR Administration Chlordiazepoxide HCl 25 mg 03/23/17 18:54 03/27/17 06:09 Librium - PO 25 mg Q6H PRN Administration AGITATION Folic Acid 1 mg 03/24/17 10:00 03/27/17 10:53 Folic Acid - PO 1 mg DAILY JUNIOR Administration Gabapentin 400 mg 03/23/17 22:00 03/28/17 06:14 Neurontin - PO 400 mg TID JUNIOR Administration Heparin Sodium (Porcine) 5,000 unit 03/23/17 22:00 03/28/17 06:14 Heparin - SQ 5,000 unit TID JUNIOR Administration Ibuprofen 400 mg 03/23/17 14:18 03/23/17 22:31 Motrin - PO 400 mg Q6H PRN Administration PAIN Metoprolol Tartrate 25 mg 03/23/17 22:00 03/27/17 21:06 Lopressor - PO 25 mg BID JUNIOR Administration Multi-Ingredient Lotion 1 applic 03/23/17 14:18 Eucerin (Large Jar) - TP DAILY PRN DRY SKIN Multi-Ingredient Ointment 1 applic 03/23/17 22:00 03/27/17 21:09 Zinc Oxide TP 1 applic BID JUNIOR Administration Multivitamins/Minerals/Vitamin C 1 tab 03/24/17 10:00 03/27/17 10:54 Tab-A-Vit - PO 1 tab DAILY JUNIOR Administration Nicotine 14 mg 03/23/17 15:00 03/27/17 10:55 Nicoderm Patch - TD 14 mg DAILY JUNIOR Administration Nystatin 1 applic 03/23/17 22:00 03/27/17 21:09 Nystop Powder - TP 1 applic BID JUNIOR Administration Ondansetron HCl 8 mg 03/23/17 14:18 Zofran Odt - SL Q8H PRN NAUSEA AND/OR VOMITING Quetiapine Fumarate 300 mg 03/23/17 20:00 03/27/17 21:07 Seroquel Xr - PO 300 mg HS@2000 JUNIOR Administration Ranitidine HCl 150 mg 03/24/17 10:00 03/27/17 10:54 Zantac - PO 150 mg DAILY JUNIOR Administration Sertraline HCl 100 mg 03/23/17 22:00 03/27/17 21:06 Zoloft - PO 100 mg BID JUNIOR Administration Sodium Chloride 2 spray 03/23/17 14:18 03/26/17 17:52 [place] Nasal [place] - NS 2 sprays BID PRN Administration NASAL CONGESTION Thiamine HCl 100 mg 03/24/17 10:00 03/27/17 10:53 Vitamin B1 - PO 100 mg DAILY JUNIOR Administration ASSESSMENT/PLAN: Patient is a 56 y/o gentleman with h/o Nicotine dependence, HTN, CAD s/p Stenting , hyperlipidemia and recently diagnosed R lung adenocarcinoma who presented for pulmonary resection. 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 POD#3 tracheo- esophageal puncture done, Nguyen Crain on the case , discussed with possible tx the patient to [facility], will see the patient. Possible RT after placement at [facility] Cont. Neurontin. # s/p Acute hypoxic resp failure,resolved.on O2 through trach. continue # Acute delirium improved , off restraints on and off , continues to get agitated at times, but stated that he is not pulling his trach, it comes off by itself. will continue to monitor him. ON seroquel continue librium standing at Hs and Prn during the day continue. continue Zoloft as well.Dr. Branch and psych revaluation appreciated. # HTN -cont norvasc and Metoprolol. # CAD: aspirin # Nicotine dependence : nicotine patch . DVT px with heparin possible tx to [facility].for further care. Visit type - Emergency Visit Emergency Visit: Yes ED Registration Date: 02/11/17 Care time: The patient presented to the Emergency Department on the above date and was hospitalized for further evaluation of their emergent condition. - New Patient This patient is new to me today: No - Critical Care Critical Care patient: No
[2017-03-28] MEDS: ALLOPURINOL 100 MG TABLET (FP) PO SCH (11:40)
[2017-03-28] MEDS: FOLIC ACID 1 MG TABLET (FP) PO SCH (11:40)
[2017-03-28] MEDS: ASPIRIN 81 MG CHEWABLE TABLETS PO SCH (11:40)
[2017-03-28] MEDS: chlordiazePOXIDE HCL 25 MG CAPSULE PO PRN (11:42)
[2017-03-28] MEDS: amLODIPine BESYLATE 10 MG TABLET (FP) PO SCH (11:42)
[2017-03-28] MEDS: NYSTATIN POWDER 100,000 UNITS/GM - 15 GM TOPICAL POWDER TP SCH ×2 (11:43→21:07)
[2017-03-28] MEDS: THIAMINE HCL 100 MG TABLET (FP) PO SCH (11:43)
[2017-03-28] MEDS: NICOTINE 14 MG/24 HOURS TOPICAL PATCH TD SCH (11:43)
[2017-03-28] MEDS: RANITIDINE HCL 150 MG TABLET (FP) PO SCH (11:43)
[2017-03-28] MEDS: BACITRACIN 15 GM TUBE TOPICAL OINTMENT TP SCH ×2 (11:43→21:06)
[2017-03-28] MEDS: MULTIVITAMINS (DAILY MVI) TABLET (FP) PO SCH (11:43)
[2017-03-28] MEDS: SERTRALINE HCL 50 MG TABLET (FP) PO SCH ×2 (11:43→21:06)
[2017-03-28] MEDS: ZINC OXIDE 20% TOPICAL OINTMENT 30 GM TUBE TP SCH ×2 (11:44→21:06)
[2017-03-28] MEDS: METOPROLOL TARTRATE 25 MG TABLET (FP) PO SCH ×2 (11:44→21:06)
[2017-03-28] MEDS: ALBUTEROL SO4 0.5 % INH SOLN 2.5 MG/0.5 ML VIAL.NEB. NEB PRN (14:00)
[2017-03-28] MEDS: IBUPROFEN 400 MG TABLET (FP) PO PRN (15:25)
--- NOTE | 2017-03-28 16:00 | PN ---
Progress Note (short form) - Note Progress Note: PULMONARY Doing relatively well. Last Vital Signs Temp Pulse Resp BP Pulse Ox 98.7 F 67 18 110/65 99 03/28/17 14:00 03/28/17 14:00 03/28/17 06:41 03/28/17 14:00 03/27/17 21:00 Gen: less agitated Heart: RRR Lung: decreased breath sounds at the bases Abd: soft, nontender Ext: no edema CBC, BMP 03/27/17 06:30 03/27/17 06:30 Active Medications Acetylcysteine (Mucomyst 20 Oral / Inh Use Only*) 600 mg NEB TIDR [facility] Last Admin: 03/28/17 06:50 Dose: 600 mg Albuterol Sulfate (Ventolin 0.083% Nebulizer Soln -) 1 amp NEB Q6H PRN PRN Reason: WHEEZING Last Admin: 03/27/17 22:51 Dose: 1 amp Albuterol Sulfate (Ventolin 0.5% -) 1 amp NEB Q4H PRN PRN Reason: SHORT OF BREATH/WHEEZING Allopurinol (Zyloprim -) 100 mg PO DAILY [facility] Last Admin: 03/28/17 11:40 Dose: 100 mg Amlodipine Besylate (Norvasc -) 10 mg PO DAILY [facility] Last Admin: 03/28/17 11:42 Dose: 10 mg Aspirin (Asa -) 81 mg PO DAILY [facility] Last Admin: 03/28/17 11:40 Dose: 81 mg Bacitracin (Bacitracin -) 1 applic TP BID [facility] Last Admin: 03/28/17 11:43 Dose: 1 applic Chlordiazepoxide HCl (Librium -) 25 mg PO HS [facility] Last Admin: 03/27/17 21:06 Dose: 25 mg Chlordiazepoxide HCl (Librium -) 25 mg PO Q6H PRN PRN Reason: AGITATION Last Admin: 03/28/17 11:42 Dose: 25 mg Folic Acid (Folic Acid -) 1 mg PO DAILY [facility] Last Admin: 03/28/17 11:40 Dose: 1 mg Gabapentin (Neurontin -) 400 mg PO TID [facility] Last Admin: 03/28/17 15:25 Dose: 400 mg Heparin Sodium (Porcine) (Heparin -) 5,000 unit SQ TID [facility] Last Admin: 03/28/17 15:25 Dose: 5,000 unit Ibuprofen (Motrin -) 400 mg PO Q6H PRN PRN Reason: PAIN Last Admin: 03/28/17 15:25 Dose: 400 mg Metoprolol Tartrate (Lopressor -) 25 mg PO BID [facility] Last Admin: 03/28/17 11:44 Dose: 25 mg Multi-Ingredient Lotion (Eucerin (Large Jar) -) 1 applic TP DAILY PRN PRN Reason: DRY SKIN Multi-Ingredient Ointment (Zinc Oxide) 1 applic TP BID [facility] Last Admin: 03/28/17 11:44 Dose: 1 applic Multivitamins/Minerals/Vitamin C (Tab-A-Vit -) 1 tab PO DAILY [facility] Last Admin: 03/28/17 11:43 Dose: 1 tab Nicotine (Nicoderm Patch -) 14 mg TD DAILY [facility] Last Admin: 03/28/17 11:43 Dose: 14 mg Nystatin (Nystop Powder -) 1 applic TP BID [facility] Last Admin: 03/28/17 11:43 Dose: 1 applic Ondansetron HCl (Zofran Odt -) 8 mg SL Q8H PRN PRN Reason: NAUSEA AND/OR VOMITING Quetiapine Fumarate (Seroquel Xr -) 300 mg PO HS@1999 [facility] Last Admin: 03/27/17 21:07 Dose: 300 mg Ranitidine HCl (Zantac -) 150 mg PO DAILY [facility] Last Admin: 03/28/17 11:43 Dose: 150 mg Sertraline HCl (Zoloft -) 100 mg PO BID [facility] Last Admin: 03/28/17 11:43 Dose: 100 mg Sodium Chloride ([place] Nasal [place] -) 2 spray NS BID PRN PRN Reason: NASAL CONGESTION Last Admin: 03/26/17 17:52 Dose: 2 sprays Thiamine HCl (Vitamin B1 -) 100 mg PO DAILY [facility] Last Admin: 03/28/17 11:43 Dose: 100 mg A/P NSCLC - Adenocarcinoma s/p R VATS/Wedge Resection/CT placement now removed 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 HTN CAD Alcohol Abuse/Dependence - pain control - PO as tolerated - DVT prophylaxis - rehab/PT
[2017-03-28] MEDS: chlordiazePOXIDE HCL 25 MG CAPSULE PO SCH (21:06)
[2017-03-28] MEDS ORDERED: MELATONIN 5 MG TABLETS PO ONE (22:00)
--- NOTE | 2017-03-28 22:09 | HOSP ---
Subjective - Review of Symptoms Events since last encounter: Rapid response was called overhead because patient's trach came out. Per nurse, patient might have pulled it out but he denies doing that. When arrived in the room, his trach was in place and he's being bagged. Per respiratory therapist, patient's trach has fallen out a couple of times, either with restraints or without. Vitals: BP 163/78, HR 78, Sat 99% FiO2 50% via trach Pulmonary: Yes: Dyspnea Cardiovascular: No: Chest Pain Physical Examination Vital Signs: Vital Signs Temperature 98.0 F 03/28/17 18:10 Pulse Rate 82 03/28/17 18:10 Respiratory Rate 20 03/28/17 18:10 Blood Pressure 117/71 03/28/17 18:10 O2 Sat by Pulse Oximetry (%) 100 03/28/17 09:00 Constitutional: Yes: Anxious, Moderate Distress Cardiovascular: Yes: Regular Rate and Rhythm Respiratory: Yes: Tachypnea, Other (coarse breath sounds bilaterally) Labs: CBC, BMP 03/27/17 06:30 03/27/17 06:30 Hospitalist Encounter Assessment: Trach dislodge - Currently on FiO2 50%, sating at 99% - May need to secure the tract with suture - Bed alarm and close monitoring Visit type - Emergency Visit Emergency Visit: No - New Patient This patient is new to me today: No - Critical Care Critical Care patient: No
[2017-03-28] MEDS: ALBUTEROL SO4 0.083% IH SOL 2.5 MG/3 ML VIAL.NEB. NEB PRN (22:15)
[2017-03-29] MEDS: ALBUTEROL SO4 0.083% IH SOL 2.5 MG/3 ML VIAL.NEB. NEB PRN (06:02)
[2017-03-29] MEDS: ACETYLCYSTEINE 20% 200MG/ML 4 ML VIAL *FOR ORAL / INH USE ONLY NEB SCH ×3 (06:02→22:00)
[2017-03-29] MEDS: GABAPENTIN 400 MG CAPSULE (FP) PO SCH ×3 (06:31→22:28)
[2017-03-29] MEDS: HEPARIN NA (PORCINE) 5,000 UNITS/ML 1ML VIAL SQ SCH ×3 (06:31→22:28)
[2017-03-29] MEDS: FOLIC ACID 1 MG TABLET (FP) PO SCH (10:22)
[2017-03-29] MEDS: SERTRALINE HCL 50 MG TABLET (FP) PO SCH ×2 (10:22→22:29)
[2017-03-29] MEDS: ASPIRIN 81 MG CHEWABLE TABLETS PO SCH (10:22)
[2017-03-29] MEDS: METOPROLOL TARTRATE 25 MG TABLET (FP) PO SCH ×2 (10:22→22:28)
[2017-03-29] MEDS: RANITIDINE HCL 150 MG TABLET (FP) PO SCH (10:22)
[2017-03-29] MEDS: amLODIPine BESYLATE 10 MG TABLET (FP) PO SCH (10:22)
[2017-03-29] MEDS: THIAMINE HCL 100 MG TABLET (FP) PO SCH (10:22)
[2017-03-29] MEDS: chlordiazePOXIDE HCL 25 MG CAPSULE PO PRN (10:22)
[2017-03-29] MEDS: MULTIVITAMINS (DAILY MVI) TABLET (FP) PO SCH (10:22)
[2017-03-29] MEDS: ALLOPURINOL 100 MG TABLET (FP) PO SCH (10:22)
[2017-03-29] MEDS: BACITRACIN 15 GM TUBE TOPICAL OINTMENT TP SCH ×2 (10:23→22:27)
[2017-03-29] MEDS: NICOTINE 14 MG/24 HOURS TOPICAL PATCH TD SCH (10:23)
[2017-03-29] MEDS: NYSTATIN POWDER 100,000 UNITS/GM - 15 GM TOPICAL POWDER TP SCH ×2 (10:23→22:31)
[2017-03-29] MEDS: ZINC OXIDE 20% TOPICAL OINTMENT 30 GM TUBE TP SCH ×2 (10:23→22:27)
[2017-03-29] MEDS: SODIUM CHLORIDE NASAL SPRAY 44 ML BOTTLE NS PRN (10:24)
--- NOTE | 2017-03-29 13:18 | PN ---
Progress Note (short form) - Note Progress Note: PULMONARY Denies shortness of breath or chest pain. Tolerating PO. Last Vital Signs Temp Pulse Resp BP Pulse Ox 98 F 75 18 134/74 100 03/29/17 10:00 03/29/17 10:00 03/29/17 10:00 03/29/17 10:00 03/28/17 21:00 Gen: less agitated Heart: RRR Lung: decreased breath sounds at the bases Abd: soft, nontender Ext: no edema CBC, BMP 03/27/17 06:30 03/27/17 06:30 Active Medications Acetylcysteine (Mucomyst 20 Oral / Inh Use Only*) 600 mg NEB TIDR [facility] Last Admin: 03/29/17 06:02 Dose: 600 mg Albuterol Sulfate (Ventolin 0.083% Nebulizer Soln -) 1 amp NEB Q6H PRN PRN Reason: WHEEZING Last Admin: 03/29/17 06:02 Dose: 1 amp Albuterol Sulfate (Ventolin 0.5% -) 1 amp NEB Q4H PRN PRN Reason: SHORT OF BREATH/WHEEZING Last Admin: 03/28/17 14:00 Dose: 1 amp Allopurinol (Zyloprim -) 100 mg PO DAILY [facility] Last Admin: 03/29/17 10:22 Dose: 100 mg Amlodipine Besylate (Norvasc -) 10 mg PO DAILY [facility] Last Admin: 03/29/17 10:22 Dose: 10 mg Aspirin (Asa -) 81 mg PO DAILY [facility] Last Admin: 03/29/17 10:22 Dose: 81 mg Bacitracin (Bacitracin -) 1 applic TP BID [facility] Last Admin: 03/29/17 10:23 Dose: 1 applic Chlordiazepoxide HCl (Librium -) 25 mg PO HS [facility] Last Admin: 03/28/17 21:06 Dose: 25 mg Folic Acid (Folic Acid -) 1 mg PO DAILY [facility] Last Admin: 03/29/17 10:22 Dose: 1 mg Gabapentin (Neurontin -) 400 mg PO TID [facility] Last Admin: 03/29/17 06:31 Dose: 400 mg Heparin Sodium (Porcine) (Heparin -) 5,000 unit SQ TID [facility] Last Admin: 03/29/17 06:31 Dose: 5,000 unit Ibuprofen (Motrin -) 400 mg PO Q6H PRN PRN Reason: PAIN Last Admin: 03/28/17 15:25 Dose: 400 mg Metoprolol Tartrate (Lopressor -) 25 mg PO BID [facility] Last Admin: 03/29/17 10:22 Dose: 25 mg Multi-Ingredient Lotion (Eucerin (Large Jar) -) 1 applic TP DAILY PRN PRN Reason: DRY SKIN Multi-Ingredient Ointment (Zinc Oxide) 1 applic TP BID [facility] Last Admin: 03/29/17 10:23 Dose: 1 applic Multivitamins/Minerals/Vitamin C (Tab-A-Vit -) 1 tab PO DAILY [facility] Last Admin: 03/29/17 10:22 Dose: 1 tab Nicotine (Nicoderm Patch -) 14 mg TD DAILY [facility] Last Admin: 03/29/17 10:23 Dose: 14 mg Nystatin (Nystop Powder -) 1 applic TP BID [facility] Last Admin: 03/29/17 10:23 Dose: 1 applic Ondansetron HCl (Zofran Odt -) 8 mg SL Q8H PRN PRN Reason: NAUSEA AND/OR VOMITING Quetiapine Fumarate (Seroquel Xr -) 300 mg PO HS@1999 [facility] Last Admin: 03/28/17 20:45 Dose: 300 mg Ranitidine HCl (Zantac -) 150 mg PO DAILY [facility] Last Admin: 03/29/17 10:22 Dose: 150 mg Sertraline HCl (Zoloft -) 100 mg PO BID [facility] Last Admin: 03/29/17 10:22 Dose: 100 mg Sodium Chloride ([place] -) 2 spray NS BID PRN PRN Reason: NASAL CONGESTION Last Admin: 03/29/17 10:24 Dose: 2 sprays Thiamine HCl (Vitamin B1 -) 100 mg PO DAILY [facility] Last Admin: 03/29/17 10:22 Dose: 100 mg A/P NSCLC - Adenocarcinoma s/p R VATS/Wedge Resection/CT placement now removed 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 HTN CAD Alcohol Abuse/Dependence - pain control - PO as tolerated - DVT prophylaxis - rehab/PT
[2017-03-29] MEDS: ALBUTEROL SO4 0.5 % INH SOLN 2.5 MG/0.5 ML VIAL.NEB. NEB PRN ×2 (14:42→22:00)
--- NOTE | 2017-03-29 18:06 | PN ---
Progress Note (short form) - Note Progress Note: Patient is very happy today, the happiest that I have seen, comfortable, keeps stating that the trach. dislodges by itself when he coughs. and he is not doing it. Vital Signs Temperature 97.7 F 03/29/17 14:36 Pulse Rate 74 03/29/17 14:45 Respiratory Rate 18 03/29/17 10:00 Blood Pressure 128/65 03/29/17 14:36 O2 Sat by Pulse Oximetry (%) 100 03/29/17 14:45 GENERAL: The patient is awake, alert, and fully oriented, in no acute distress. HEAD: Normal with no signs of trauma. EYES: PERRL, extraocular movements intact, sclera anicteric, conjunctiva clear. ENT:positive for trach. NECK: positive for trach. full range of motion, supple. LUNGS: Breath sounds equal, clear to auscultation bilaterally, no wheezes, no crackles, no accessory muscle use. HEART: Regular rate and rhythm, S1, S2 positive, without murmur no rub or gallop. ABDOMEN: Soft, nontender, nondistended, normoactive bowel sounds, no guarding, no rebound, no hepatosplenomegaly, no masses. EXTREMITIES: 2+ pulses, warm, well-perfused, no edema. NEUROLOGICAL: Cranial nerves II through XII grossly intact. Normal speech, gait not observed. PSYCH: Normal mood, normal affect. SKIN: Warm, dry, normal turgor, no rashes or lesions noted CBCD WBC 8.2 K/mm3 (4.0-10.0) 03/27/17 06:30 RBC 3.39 M/mm3 (4.00-5.60) L 03/27/17 06:30 Hgb 10.3 GM/dL (11.7-16.9) L 03/27/17 06:30 Hct 30.9 % (35.4-49) L 03/27/17 06:30 MCV 91.2 fl (80-96) 03/27/17 06:30 MCHC 33.2 g/dl (32.0-35.9) 03/27/17 06:30 RDW 13.7 % (11.9-15.9) 03/27/17 06:30 Plt Count 202 K/MM3 (134-434) 03/27/17 06:30 MPV 9.8 fl (7.5-11.1) 03/27/17 06:30 CMP Sodium 139 mmol/L (136-145) 03/27/17 06:30 Potassium 4.0 mmol/L (3.5-5.1) 03/27/17 06:30 Chloride 106 mmol/L (98-107) 03/27/17 06:30 Carbon Dioxide 26 mmol/L (21-32) 03/27/17 06:30 Anion Gap 7 (8-16) L 03/27/17 06:30 BUN 12 mg/dL (7-18) 03/27/17 06:30 Creatinine 0.9 mg/dL (0.7-1.3) 03/27/17 06:30 Creat Clearance w eGFR > 60 (>60) 03/10/17 06:50 Random Glucose 105 mg/dL (74-106) 03/27/17 06:30 Calcium 8.7 mg/dL (8.5-10.1) 03/27/17 06:30 Total Bilirubin 0.5 mg/dL (0.2-1.0) D 03/10/17 06:50 AST 23 U/L (15-37) 03/10/17 06:50 ALT 29 U/L (12-78) 03/10/17 06:50 Alkaline Phosphatase 96 U/L (45-117) 03/10/17 06:50 Total Protein 7.0 g/dl (6.4-8.2) 03/10/17 06:50 Albumin 2.7 g/dl (3.4-5.0) L D 03/10/17 06:50 CARDIAC ENZYMES Creatine Kinase 71 IU/L (39-308) 02/11/17 10:24 Troponin I < 0.02 ng/ml (0.00-0.05) 02/11/17 10:24 Current Medications Generic Name Dose Route Start Last Admin Trade Name Freq PRN Reason Stop Dose Admin Acetylcysteine 600 mg 03/23/17 22:00 03/29/17 14:42 Mucomyst 20 Oral / Inh Use Only* NEB 600 mg TIDR [facility] Administration Albuterol Sulfate 1 amp 03/23/17 14:18 03/29/17 06:02 Ventolin 0.083% Nebulizer Soln - NEB 1 amp Q6H PRN Administration WHEEZING Albuterol Sulfate 1 amp 03/23/17 14:18 03/29/17 14:42 Ventolin 0.5% - NEB 1 amp Q4H PRN Administration SHORT OF BREATH/WHEEZING Allopurinol 100 mg 03/24/17 10:00 03/29/17 10:22 Zyloprim - PO 100 mg DAILY [facility] Administration Amlodipine Besylate 10 mg 03/24/17 10:00 03/29/17 10:22 Norvasc - PO 10 mg DAILY [facility] Administration Aspirin 81 mg 03/24/17 10:00 03/29/17 10:22 Asa - PO 81 mg DAILY [facility] Administration Bacitracin 1 applic 03/23/17 22:00 03/29/17 10:23 Bacitracin - TP 1 applic BID [facility] Administration Chlordiazepoxide HCl 25 mg 03/23/17 22:00 03/28/17 21:06 Librium - PO 25 mg HS JUNIOR Administration Folic Acid 1 mg 03/24/17 10:00 03/29/17 10:22 Folic Acid - PO 1 mg DAILY [facility] Administration Gabapentin 400 mg 03/23/17 22:00 03/29/17 15:40 Neurontin - PO 400 mg TID JUNIOR Administration Heparin Sodium (Porcine) 5,000 unit 03/23/17 22:00 03/29/17 15:40 Heparin - SQ 5,000 unit TID JUNIOR Administration Ibuprofen 400 mg 03/23/17 14:18 03/28/17 15:25 Motrin - PO 400 mg Q6H PRN Administration PAIN Metoprolol Tartrate 25 mg 03/23/17 22:00 03/29/17 10:22 Lopressor - PO 25 mg BID JUNIOR Administration Multi-Ingredient Lotion 1 applic 03/23/17 14:18 Eucerin (Large Jar) - TP DAILY PRN DRY SKIN Multi-Ingredient Ointment 1 applic 03/23/17 22:00 03/29/17 10:23 Zinc Oxide TP 1 applic BID [facility] Administration Multivitamins/Minerals/Vitamin C 1 tab 03/24/17 10:00 03/29/17 10:22 Tab-A-Vit - PO 1 tab DAILY [facility] Administration Nicotine 14 mg 03/23/17 15:00 03/29/17 10:23 Nicoderm Patch - TD 14 mg DAILY [facility] Administration Nystatin 1 applic 03/23/17 22:00 03/29/17 10:23 Nystop Powder - TP 1 applic BID [facility] Administration Ondansetron HCl 8 mg 03/23/17 14:18 Zofran Odt - SL Q8H PRN NAUSEA AND/OR VOMITING Quetiapine Fumarate 300 mg 03/23/17 20:00 03/28/17 20:45 Seroquel Xr - PO 300 mg HS@2000 [facility] Administration Ranitidine HCl 150 mg 03/24/17 10:00 03/29/17 10:22 Zantac - PO 150 mg DAILY [facility] Administration Sertraline HCl 100 mg 03/23/17 22:00 03/29/17 10:22 Zoloft - PO 100 mg BID [facility] Administration Sodium Chloride 2 spray 03/23/17 14:18 03/29/17 10:24 [place] Nasal [place] - NS 2 sprays BID PRN Administration NASAL CONGESTION Thiamine HCl 100 mg 03/24/17 10:00 03/29/17 10:22 Vitamin B1 - PO 100 mg DAILY [facility] Administration Home Medications Medication Instructions Recorded Amlodipine Besylate 10 mg PO DAILY 12/23/16 Atorvastatin Ca [Lipitor] 10 mg PO HS 12/23/16 Gabapentin 800 mg PO TID 12/23/16 Quetiapine Fumarate "Xr" [Seroquel 300 mg PO ACDIN 12/23/16 Xr -] Sertraline HCl [Zoloft] 100 mg PO BID 12/23/16 Folic Acid 1 mg PO DAILY 01/02/17 Allopurinol [Zyloprim -] 100 mg PO DAILY 02/12/17 Aspirin [ASA -] 81 mg PO DAILY 02/12/17 A/P: Patient is a 56 y/o gentleman with h/o Nicotine dependence, HTN, CAD s/p Stenting , hyperlipidemia and recently diagnosed R lung adenocarcinoma who presented for pulmonary resection. 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 POD#4 tracheo- esophageal puncture done, Nguyen Crain on the case , discussed with possible tx the patient to [facility]. Possible RT after placement at [facility] Cont. Neurontin. # s/p Acute hypoxic resp failure,resolved.on O2 through trach. continue # Acute delirium improved .continue seroquel 300 xr , continue librium standing at Hs and Prn during the day continue. continue Zoloft as well Dr. Branch and psych revaluation appreciated. # HTN -cont norvasc and Metoprolol. # CAD: aspirin # Nicotine dependence : nicotine patch . DVT px with heparin possible tx to [facility]for further care. Visit type - Emergency Visit Emergency Visit: Yes ED Registration Date: 02/11/17 Care time: The patient presented to the Emergency Department on the above date and was hospitalized for further evaluation of their emergent condition. - New Patient This patient is new to me today: No - Critical Care Critical Care patient: No
[2017-03-29] MEDS: chlordiazePOXIDE HCL 25 MG CAPSULE PO SCH (22:29)
[2017-03-30] MEDS: HEPARIN NA (PORCINE) 5,000 UNITS/ML 1ML VIAL SQ SCH ×3 (05:36→22:49)
[2017-03-30] MEDS: GABAPENTIN 400 MG CAPSULE (FP) PO SCH ×3 (05:36→22:49)
[2017-03-30] MEDS ORDERED: INSULIN (NOVOLOG) ASPART 100 UNITS/ML 10ML VIAL ONE (06:24)
[2017-03-30] MEDS: ACETYLCYSTEINE 20% 200MG/ML 4 ML VIAL *FOR ORAL / INH USE ONLY NEB SCH ×3 (06:27→22:35)
[2017-03-30] MEDS: ALBUTEROL SO4 0.083% IH SOL 2.5 MG/3 ML VIAL.NEB. NEB PRN ×2 (06:28→22:35)
[2017-03-30] MEDS ORDERED: PT OWN MED DRAWER 7, Y5N ONE (09:14)
[2017-03-30] MEDS: METOPROLOL TARTRATE 25 MG TABLET (FP) PO SCH ×2 (09:46→22:49)
[2017-03-30] MEDS: FOLIC ACID 1 MG TABLET (FP) PO SCH (09:46)
[2017-03-30] MEDS: amLODIPine BESYLATE 10 MG TABLET (FP) PO SCH (09:46)
[2017-03-30] MEDS: MULTIVITAMINS (DAILY MVI) TABLET (FP) PO SCH (09:46)
[2017-03-30] MEDS: SERTRALINE HCL 50 MG TABLET (FP) PO SCH ×2 (09:46→22:49)
[2017-03-30] MEDS: ALLOPURINOL 100 MG TABLET (FP) PO SCH (09:46)
[2017-03-30] MEDS: THIAMINE HCL 100 MG TABLET (FP) PO SCH (09:47)
[2017-03-30] MEDS: SODIUM CHLORIDE NASAL SPRAY 44 ML BOTTLE NS PRN (09:47)
[2017-03-30] MEDS: ONDANSETRON *ODT* 4 MG TABLET SL PRN (09:47)
[2017-03-30] MEDS: NICOTINE 14 MG/24 HOURS TOPICAL PATCH TD SCH (09:47)
[2017-03-30] MEDS: NYSTATIN POWDER 100,000 UNITS/GM - 15 GM TOPICAL POWDER TP SCH ×2 (09:47→22:51)
[2017-03-30] MEDS: ASPIRIN 81 MG CHEWABLE TABLETS PO SCH (09:47)
[2017-03-30] MEDS: RANITIDINE HCL 150 MG TABLET (FP) PO SCH (09:47)
[2017-03-30] MEDS: BACITRACIN 15 GM TUBE TOPICAL OINTMENT TP SCH ×2 (09:50→22:50)
[2017-03-30] MEDS: ZINC OXIDE 20% TOPICAL OINTMENT 30 GM TUBE TP SCH ×2 (09:50→22:50)
--- NOTE | 2017-03-30 10:13 | PN ---
Teaching Attending Note Name of Resident: Gloria Zaldivar ATTENDING PHYSICIAN STATEMENT I saw and evaluated the patient. I reviewed the resident's note and discussed the case with the resident. I agree with the resident's findings and plan as documented. SUBJECTIVE: Patient is calmer today with no acute distress. OBJECTIVE: Vital Signs Temperature 98.5 F 03/30/17 09:36 Pulse Rate 80 03/30/17 09:36 Respiratory Rate 22 03/30/17 09:36 Blood Pressure 129/75 03/30/17 09:36 O2 Sat by Pulse Oximetry (%) 100 03/30/17 09:00 CBCD WBC 8.2 K/mm3 (4.0-10.0) 03/27/17 06:30 RBC 3.39 M/mm3 (4.00-5.60) L 03/27/17 06:30 Hgb 10.3 GM/dL (11.7-16.9) L 03/27/17 06:30 Hct 30.9 % (35.4-49) L 03/27/17 06:30 MCV 91.2 fl (80-96) 03/27/17 06:30 MCHC 33.2 g/dl (32.0-35.9) 03/27/17 06:30 RDW 13.7 % (11.9-15.9) 03/27/17 06:30 Plt Count 202 K/MM3 (134-434) 03/27/17 06:30 MPV 9.8 fl (7.5-11.1) 03/27/17 06:30 CMP Sodium 139 mmol/L (136-145) 03/27/17 06:30 Potassium 4.0 mmol/L (3.5-5.1) 03/27/17 06:30 Chloride 106 mmol/L (98-107) 03/27/17 06:30 Carbon Dioxide 26 mmol/L (21-32) 03/27/17 06:30 Anion Gap 7 (8-16) L 03/27/17 06:30 BUN 12 mg/dL (7-18) 03/27/17 06:30 Creatinine 0.9 mg/dL (0.7-1.3) 03/27/17 06:30 Creat Clearance w eGFR > 60 (>60) 03/10/17 06:50 Random Glucose 105 mg/dL (74-106) 03/27/17 06:30 Calcium 8.7 mg/dL (8.5-10.1) 03/27/17 06:30 Total Bilirubin 0.5 mg/dL (0.2-1.0) D 03/10/17 06:50 AST 23 U/L (15-37) 03/10/17 06:50 ALT 29 U/L (12-78) 03/10/17 06:50 Alkaline Phosphatase 96 U/L (45-117) 03/10/17 06:50 Total Protein 7.0 g/dl (6.4-8.2) 03/10/17 06:50 Albumin 2.7 g/dl (3.4-5.0) L D 03/10/17 06:50 CARDIAC ENZYMES Creatine Kinase 71 IU/L (39-308) 02/11/17 10:24 Troponin I < 0.02 ng/ml (0.00-0.05) 02/11/17 10:24 Current Medications Generic Name Dose Route Start Last Admin Trade Name Freq PRN Reason Stop Dose Admin Acetylcysteine 600 mg 03/23/17 22:00 03/30/17 06:27 Mucomyst 20 Oral / Inh Use Only* NEB 600 mg TIDR [facility] Administration Albuterol Sulfate 1 amp 03/23/17 14:18 03/30/17 06:28 Ventolin 0.083% Nebulizer Soln - NEB 1 amp Q6H PRN Administration WHEEZING Albuterol Sulfate 1 amp 03/23/17 14:18 03/29/17 22:00 Ventolin 0.5% - NEB 1 amp Q4H PRN Administration SHORT OF BREATH/WHEEZING Allopurinol 100 mg 03/24/17 10:00 03/30/17 09:46 Zyloprim - PO 100 mg DAILY [facility] Administration Amlodipine Besylate 10 mg 03/24/17 10:00 03/30/17 09:46 Norvasc - PO 10 mg DAILY [facility] Administration Aspirin 81 mg 03/24/17 10:00 03/30/17 09:47 Asa - PO 81 mg DAILY [facility] Administration Bacitracin 1 applic 03/23/17 22:00 03/30/17 09:50 Bacitracin - TP 1 applic BID [facility] Administration Chlordiazepoxide HCl 25 mg 03/23/17 22:00 03/29/17 22:29 Librium - PO 25 mg HS JUNIOR Administration Folic Acid 1 mg 03/24/17 10:00 03/30/17 09:46 Folic Acid - PO 1 mg DAILY [facility] Administration Gabapentin 400 mg 03/23/17 22:00 03/30/17 05:36 Neurontin - PO 400 mg TID [facility]IOR Administration Heparin Sodium (Porcine) 5,000 unit 03/23/17 22:00 03/30/17 05:36 Heparin - SQ 5,000 unit TID [facility] Administration Ibuprofen 400 mg 03/23/17 14:18 03/28/17 15:25 Motrin - PO 400 mg Q6H PRN Administration PAIN Metoprolol Tartrate 25 mg 03/23/17 22:00 03/30/17 09:46 Lopressor - PO 25 mg BID [facility] Administration Multi-Ingredient Lotion 1 applic 03/23/17 14:18 Eucerin (Large Jar) - TP DAILY PRN DRY SKIN Multi-Ingredient Ointment 1 applic 03/23/17 22:00 03/30/17 09:50 Zinc Oxide TP 1 applic BID [facility] Administration Multivitamins/Minerals/Vitamin C 1 tab 03/24/17 10:00 03/30/17 09:46 Tab-A-Vit - PO 1 tab DAILY [facility] Administration Nicotine 14 mg 03/23/17 15:00 03/30/17 09:47 Nicoderm Patch - TD 14 mg DAILY [facility] Administration Nystatin 1 applic 03/23/17 22:00 03/30/17 09:47 Nystop Powder - TP 1 applic BID [facility] Administration Ondansetron HCl 8 mg 03/23/17 14:18 03/30/17 09:47 Zofran Odt - SL 8 mg Q8H PRN Administration NAUSEA AND/OR VOMITING Quetiapine Fumarate 300 mg 03/23/17 20:00 03/29/17 21:00 Seroquel Xr - PO 300 mg HS@2000 J[facility] Administration Ranitidine HCl 150 mg 03/24/17 10:00 03/30/17 09:47 Zantac - PO 150 mg DAILY [facility] Administration Sertraline HCl 100 mg 03/23/17 22:00 03/30/17 09:46 Zoloft - PO 100 mg BID [facility] Administration Sodium Chloride 2 spray 03/23/17 14:18 03/30/17 09:47 [place] - NS 2 sprays BID PRN Administration NASAL CONGESTION Thiamine HCl 100 mg 03/24/17 10:00 03/30/17 09:47 Vitamin B1 - PO 100 mg DAILY [facility] Administration Home Medications Medication Instructions Recorded Amlodipine Besylate 10 mg PO DAILY 12/23/16 Atorvastatin Ca [Lipitor] 10 mg PO HS 12/23/16 Gabapentin 800 mg PO TID 12/23/16 Quetiapine Fumarate "Xr" [Seroquel 300 mg PO ACDIN 12/23/16 Xr -] Sertraline HCl [Zoloft] 100 mg PO BID 12/23/16 Folic Acid 1 mg PO DAILY 01/02/17 Allopurinol [Zyloprim -] 100 mg PO DAILY 02/12/17 Aspirin [ASA -] 81 mg PO DAILY 02/12/17 PE: per resident's note ASSESSMENT AND PLAN: Patient is a 56 y/o gentleman with h/o Nicotine dependence, HTN, CAD s/p Stenting , hyperlipidemia and recently diagnosed R lung adenocarcinoma who presented for pulmonary resection. 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 POD#5 tracheo- esophageal puncture by ENT, Nguyen Crain on the case , discussed with ; will stabilize the trach. since as per patient is popping out by itself . # s/p Acute hypoxic resp failure,resolved on O2 through trach. # Acute delirium improved .continue seroquel 300 xr , continue librium standing at Hs and Prn during the day continue. continue Zoloft as well Dr. Branch and psych revaluation appreciated. # HTN -cont norvasc and Metoprolol. # CAD: aspirin # Nicotine dependence : nicotine patch . DVT px with heparin
--- NOTE | 2017-03-30 12:11 | PN ---
Progress Note (short form) - Note Progress Note: PULMONARY Denies shortness of breath or chest pain. Tolerating PO. No fevers recorded. Last Vital Signs Temp Pulse Resp BP Pulse Ox 98.5 F 80 22 129/75 100 03/30/17 09:36 03/30/17 09:36 03/30/17 09:36 03/30/17 09:36 03/30/17 09:00 Gen: breathing nonlabored Heart: RRR Lung: decreased breath sounds at the bases Abd: soft, nontender Ext: no edema CBC, BMP 03/27/17 06:30 03/27/17 06:30 Active Medications Acetylcysteine (Mucomyst 20 Oral / Inh Use Only*) 600 mg NEB TIDR [facility] Last Admin: 03/30/17 06:27 Dose: 600 mg Albuterol Sulfate (Ventolin 0.083% Nebulizer Soln -) 1 amp NEB Q6H PRN PRN Reason: WHEEZING Last Admin: 03/30/17 06:28 Dose: 1 amp Albuterol Sulfate (Ventolin 0.5% -) 1 amp NEB Q4H PRN PRN Reason: SHORT OF BREATH/WHEEZING Last Admin: 03/29/17 22:00 Dose: 1 amp Allopurinol (Zyloprim -) 100 mg PO DAILY [facility] Last Admin: 03/30/17 09:46 Dose: 100 mg Amlodipine Besylate (Norvasc -) 10 mg PO DAILY [facility] Last Admin: 03/30/17 09:46 Dose: 10 mg Aspirin (Asa -) 81 mg PO DAILY [facility] Last Admin: 03/30/17 09:47 Dose: 81 mg Bacitracin (Bacitracin -) 1 applic TP BID [facility] Last Admin: 03/30/17 09:50 Dose: 1 applic Chlordiazepoxide HCl (Librium -) 25 mg PO HS [facility] Last Admin: 03/29/17 22:29 Dose: 25 mg Folic Acid (Folic Acid -) 1 mg PO DAILY [facility] Last Admin: 03/30/17 09:46 Dose: 1 mg Gabapentin (Neurontin -) 400 mg PO TID [facility] Last Admin: 03/30/17 05:36 Dose: 400 mg Heparin Sodium (Porcine) (Heparin -) 5,000 unit SQ TID [facility] Last Admin: 03/30/17 05:36 Dose: 5,000 unit Ibuprofen (Motrin -) 400 mg PO Q6H PRN PRN Reason: PAIN Last Admin: 03/28/17 15:25 Dose: 400 mg Metoprolol Tartrate (Lopressor -) 25 mg PO BID [facility] Last Admin: 03/30/17 09:46 Dose: 25 mg Multi-Ingredient Lotion (Eucerin (Large Jar) -) 1 applic TP DAILY PRN PRN Reason: DRY SKIN Multi-Ingredient Ointment (Zinc Oxide) 1 applic TP BID [facility] Last Admin: 03/30/17 09:50 Dose: 1 applic Multivitamins/Minerals/Vitamin C (Tab-A-Vit -) 1 tab PO DAILY [facility] Last Admin: 03/30/17 09:46 Dose: 1 tab Nicotine (Nicoderm Patch -) 14 mg TD DAILY [facility] Last Admin: 03/30/17 09:47 Dose: 14 mg Nystatin (Nystop Powder -) 1 applic TP BID [facility] Last Admin: 03/30/17 09:47 Dose: 1 applic Ondansetron HCl (Zofran Odt -) 8 mg SL Q8H PRN PRN Reason: NAUSEA AND/OR VOMITING Last Admin: 03/30/17 09:47 Dose: 8 mg Quetiapine Fumarate (Seroquel Xr -) 300 mg PO HS@1999 [facility] Last Admin: 03/29/17 21:00 Dose: 300 mg Ranitidine HCl (Zantac -) 150 mg PO DAILY [facility] Last Admin: 03/30/17 09:47 Dose: 150 mg Sertraline HCl (Zoloft -) 100 mg PO BID [facility] Last Admin: 03/30/17 09:46 Dose: 100 mg Sodium Chloride ([place] -) 2 spray NS BID PRN PRN Reason: NASAL CONGESTION Last Admin: 03/30/17 09:47 Dose: 2 sprays Thiamine HCl (Vitamin B1 -) 100 mg PO DAILY [facility] Last Admin: 03/30/17 09:47 Dose: 100 mg A/P NSCLC - Adenocarcinoma s/p R VATS/Wedge Resection/CT placement now removed 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
[2017-03-30] MEDS: ALBUTEROL SO4 0.5 % INH SOLN 2.5 MG/0.5 ML VIAL.NEB. NEB PRN (14:05)
--- NOTE | 2017-03-30 14:57 | PN ---
Physical Exam: SUBJECTIVE: Patient seen and examined. Pt trialed off wrist restaints with a bed alarm to eat his lunch. Pt endorses getting up to put on pants. Aide immediately came back to room and told him to stop. Pt's knees buckled and he swatted down toward the floor. No part of his body actually hit the floor. Pt reports catching himself. Fall was witnessed by aide who endorses same events. No LOC. Head was not hit. OBJECTIVE: Vital Signs Period Temp Pulse Resp BP Sys/Clay Pulse Ox Last 24 Hr 97.7 F-98.9 F 69-80 20-22 105-129/64-75 100-100 GENERAL: AAOx3, NAD. HEAD: Normal with no signs of trauma. EYES: PERRL, extraocular movements intact, sclera anicteric, conjunctiva clear. No ptosis. ENT: Oropharynx clear without exudates, moist mucous membranes. NECK: Trachea midline, supple. LUNGS: Breath sounds equal, clear to auscultation bilaterally, no wheezes, no crackles, no accessory muscle use. HEART: Regular rate and rhythm, S1, S2 without murmur, rub or gallop. ABDOMEN: Soft, nontender, nondistended. G-tube in place. EXTREMITIES: Warm, well-perfused, no edema. Both thigh flap sites C/D/I. NEUROLOGICAL: Able to follow commands and to move extremities x 4. Active Medications Generic Name Dose Route Start Last Admin Trade Name Freq PRN Reason Stop Dose Admin Acetylcysteine 600 mg 03/23/17 22:00 03/30/17 06:27 Mucomyst 20 Oral / Inh Use Only* NEB 600 mg TIDR JUNIOR Administration Albuterol Sulfate 1 amp 03/23/17 14:18 03/30/17 06:28 Ventolin 0.083% Nebulizer Soln - NEB 1 amp Q6H PRN Administration WHEEZING Albuterol Sulfate 1 amp 03/23/17 14:18 03/29/17 22:00 Ventolin 0.5% - NEB 1 amp Q4H PRN Administration SHORT OF BREATH/WHEEZING Allopurinol 100 mg 03/24/17 10:00 03/30/17 09:46 Zyloprim - PO 100 mg DAILY JUNIOR Administration Amlodipine Besylate 10 mg 03/24/17 10:00 03/30/17 09:46 Norvasc - PO 10 mg DAILY JUNIOR Administration Aspirin 81 mg 03/24/17 10:00 03/30/17 09:47 Asa - PO 81 mg DAILY JUNIOR Administration Bacitracin 1 applic 03/23/17 22:00 03/30/17 09:50 Bacitracin - TP 1 applic BID JUNIOR Administration Chlordiazepoxide HCl 25 mg 03/23/17 22:00 03/29/17 22:29 Librium - PO 25 mg HS JUNIOR Administration Folic Acid 1 mg 03/24/17 10:00 03/30/17 09:46 Folic Acid - PO 1 mg DAILY JUNIOR Administration Gabapentin 400 mg 03/23/17 22:00 03/30/17 05:36 Neurontin - PO 400 mg TID JUNIOR Administration Heparin Sodium (Porcine) 5,000 unit 03/23/17 22:00 03/30/17 05:36 Heparin - SQ 5,000 unit TID JUNIOR Administration Ibuprofen 400 mg 03/23/17 14:18 03/28/17 15:25 Motrin - PO 400 mg Q6H PRN Administration PAIN Metoprolol Tartrate 25 mg 03/23/17 22:00 03/30/17 09:46 Lopressor - PO 25 mg BID JUNIOR Administration Multi-Ingredient Lotion 1 applic 03/23/17 14:18 Eucerin (Large Jar) - TP DAILY PRN DRY SKIN Multi-Ingredient Ointment 1 applic 03/23/17 22:00 03/30/17 09:50 Zinc Oxide TP 1 applic BID JUNIOR Administration Multivitamins/Minerals/Vitamin C 1 tab 03/24/17 10:00 03/30/17 09:46 Tab-A-Vit - PO 1 tab DAILY JUNIOR Administration Nicotine 14 mg 03/23/17 15:00 03/30/17 09:47 Nicoderm Patch - TD 14 mg DAILY JUNIOR Administration Nystatin 1 applic 03/23/17 22:00 03/30/17 09:47 Nystop Powder - TP 1 applic BID JUNIOR Administration Ondansetron HCl 8 mg 03/23/17 14:18 03/30/17 09:47 Zofran Odt - SL 8 mg Q8H PRN Administration NAUSEA AND/OR VOMITING Quetiapine Fumarate 300 mg 03/23/17 20:00 03/29/17 21:00 Seroquel Xr - PO 300 mg HS@2000 JUNIOR Administration Ranitidine HCl 150 mg 03/24/17 10:00 03/30/17 09:47 Zantac - PO 150 mg DAILY JUNIOR Administration Sertraline HCl 100 mg 03/23/17 22:00 03/30/17 09:46 Zoloft - PO 100 mg BID JUNIOR Administration Sodium Chloride 2 spray 03/23/17 14:18 03/30/17 09:47 [place] Nas[place] - NS 2 sprays BID PRN Administration NASAL CONGESTION Thiamine HCl 100 mg 03/24/17 10:00 03/30/17 09:47 Vitamin B1 - PO 100 mg DAILY JUNIOR Administration ASSESSMENT/PLAN: 56yo M with PMH of nicotine dependence, Right lung CA, CAD with 2 stents, htn, hld, gout, presented with worsening cough and sputum production and admitted to med-surg for lung resection, 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 # s/p fall - Fall Protocol initiated - f/u Head CT # acute delirium - mental status improved - continue Librium, Seroquel, and Zoloft - Psych and Detox recs appreciated # Laryngeal SCC, s/p laryngectomy with left anterolateral thigh flap pharyngeal reconstruction on 02/20/17, s/p tracheo-esophageal puncture on 03/23/17 - continue Motrin prn and Neurontin - suction q3-4hrs and prn - O2 prn - pt will require 6-7 weeks of daily radiation therapy -> Administration researching options for transport, rehab, insurance, placement, etc. # acute hypoxic respiratory failure - resolved, trach in place - regarding trach popping out multiple times, Dr. Lucero is considering suturing the trach - continue mucomyst with albuterol nebs # normocytic anemia - stable # htn - continue Norvasc and Lopressor # CAD s/p 2 stents - continue ASA # gout - continue Allopurinol # nicotine dependence - continue nicoderm patch 14mg # FEN - Fluids: encourage po - Electolytes: wnl, continue to monitor. - Nutrition: soft diet # Prophylaxis - DVT ppx with Heparin TID - deconditioning ppx with PT and Chest PT Visit type - Emergency Visit Emergency Visit: Yes ED Registration Date: 02/11/17 Care time: The patient presented to the Emergency Department on the above date and was hospitalized for further evaluation of their emergent condition. - New Patient This patient is new to me today: No - Critical Care Critical Care patient: No
[2017-03-30] MEDS ORDERED: LIDOCAINE 1%/EPI 1:100000 (20 ML MULTI DOSE VIAL) ONE (16:14)
--- NOTE | 2017-03-30 22:22 | PN ---
Progress Note (short form) - Note Progress Note: Patient seen and examined. Very calm and interactive. Ate some dinner. In restraints. Recent fall while trying to stand--head CT scan negative. Tracheostomy tube becomes dislodged often. Trying to set up course of radiation and chemotherapy as inpatient or from a fpc. In the meantime working on placement. I sutured in tracheostomy and gastrostomy tubes after sterilizing the area. He tolerated this well. Suggest Physical Therapy to improve strength to stand and walk. Continue anxiolytics as needed. Suction trach as needed. Will forego TEP training for now.
[2017-03-30] MEDS: chlordiazePOXIDE HCL 25 MG CAPSULE PO SCH (22:49)
[2017-03-31] MEDS: ACETYLCYSTEINE 20% 200MG/ML 4 ML VIAL *FOR ORAL / INH USE ONLY NEB SCH ×3 (06:00→22:35)
[2017-03-31] MEDS: ALBUTEROL SO4 0.083% IH SOL 2.5 MG/3 ML VIAL.NEB. NEB PRN ×2 (06:00→14:03)
[2017-03-31] MEDS: HEPARIN NA (PORCINE) 5,000 UNITS/ML 1ML VIAL SQ SCH ×3 (06:39→22:50)
[2017-03-31] MEDS: GABAPENTIN 400 MG CAPSULE (FP) PO SCH ×3 (06:39→22:49)
[2017-03-31 07:29] LABS: MCH 30.8 pg (25.7-33.7); MEAN CELL VOLUME 90.6 fl (80-96); MEAN PLT VOLUME 9.7 fl (7.5-11.1); PLATELET COUNT 213 K/MM3 (134-434); RDW 13.7 % (11.9-15.9); WHITE BLOOD COUNT 9.7 K/mm3 (4.0-10.0)
[2017-03-31 07:52] LABS: ALBUMIN 2.9 g/dl (3.4-5.0); ANION GAP 7 (8-16); BILIRUBIN,TOTAL 0.3 mg/dL (0.2-1.0); CALCIUM 8.6 mg/dL (8.5-10.1); CO2 29 mmol/L (21-32); CREATININE 0.9 mg/dL (0.7-1.3); GLUCOSE,RANDOM 100 mg/dL (74-106); MAGNESIUM 1.7 mg/dL (1.8-2.4); SGOT/AST 11 U/L (15-37); SGPT/ALT 19 U/L (12-78); TOT PROT 6.9 g/dl (6.4-8.2)
[2017-03-31 07:53] LABS: ALK PHOS 69 U/L (45-117)
--- NOTE | 2017-03-31 09:17 | PN ---
Progress Note (short form) - Note Progress Note: Patient seen yesterday Tolerating regular diet without difficulty Neck incision well healed thigh donor site with slight residual healing on the left medial edge of the graft site. Recommend continued bacitracin and xeroform to area until fully healed. Otherwise no restrictions.
[2017-03-31] MEDS: amLODIPine BESYLATE 10 MG TABLET (FP) PO SCH (10:35)
[2017-03-31] MEDS: METOPROLOL TARTRATE 25 MG TABLET (FP) PO SCH ×2 (10:37→22:49)
[2017-03-31] MEDS ORDERED: PT OWN MED DRAWER 7, Y5N ONE (11:29)
[2017-03-31] MEDS: FOLIC ACID 1 MG TABLET (FP) PO SCH (11:35)
[2017-03-31] MEDS: SERTRALINE HCL 50 MG TABLET (FP) PO SCH ×2 (11:38→22:49)
[2017-03-31] MEDS: THIAMINE HCL 100 MG TABLET (FP) PO SCH (11:38)
[2017-03-31] MEDS: ASPIRIN 81 MG CHEWABLE TABLETS PO SCH (11:38)
[2017-03-31] MEDS: RANITIDINE HCL 150 MG TABLET (FP) PO SCH (11:39)
[2017-03-31] MEDS: MULTIVITAMINS (DAILY MVI) TABLET (FP) PO SCH (11:39)
[2017-03-31] MEDS: NYSTATIN POWDER 100,000 UNITS/GM - 15 GM TOPICAL POWDER TP SCH ×2 (11:39→22:48)
[2017-03-31] MEDS: NICOTINE 14 MG/24 HOURS TOPICAL PATCH TD SCH (11:40)
[2017-03-31] MEDS: ZINC OXIDE 20% TOPICAL OINTMENT 30 GM TUBE TP SCH ×2 (11:40→22:48)
[2017-03-31] MEDS: BACITRACIN 15 GM TUBE TOPICAL OINTMENT TP SCH ×2 (11:40→22:49)
[2017-03-31] MEDS: ALLOPURINOL 100 MG TABLET (FP) PO SCH (11:41)
--- NOTE | 2017-03-31 15:32 | PN ---
Progress Note (short form) - Note Progress Note: PULMONARY Denies shortness of breath or chest pain. Tolerating PO. No fevers recorded. Appears comfortable. Last Vital Signs Temp Pulse Resp BP Pulse Ox 98.6 F 88 20 120/63 100 03/31/17 14:37 03/31/17 14:37 03/31/17 11:00 03/31/17 14:37 03/31/17 11:00 Gen: breathing nonlabored Heart: RRR Lung: decreased breath sounds at the bases Abd: soft, nontender Ext: no edema CBC, BMP 03/31/17 06:30 03/31/17 06:30 Active Medications Acetylcysteine (Mucomyst 20 Oral / Inh Use Only*) 600 mg NEB TIDR [facility] Last Admin: 03/31/17 14:02 Dose: 600 mg Albuterol Sulfate (Ventolin 0.083% Nebulizer Soln -) 1 amp NEB Q6H PRN PRN Reason: WHEEZING Last Admin: 03/31/17 14:03 Dose: 1 amp Albuterol Sulfate (Ventolin 0.5% -) 1 amp NEB Q4H PRN PRN Reason: SHORT OF BREATH/WHEEZING Last Admin: 03/30/17 14:05 Dose: 1 amp Allopurinol (Zyloprim -) 100 mg PO DAILY [facility] Last Admin: 03/31/17 11:41 Dose: 100 mg Amlodipine Besylate (Norvasc -) 10 mg PO DAILY [facility] Last Admin: 03/31/17 10:35 Dose: Not Given Aspirin (Asa -) 81 mg PO DAILY [facility] Last Admin: 03/31/17 11:38 Dose: 81 mg Bacitracin (Bacitracin -) 1 applic TP BID [facility] Last Admin: 03/31/17 11:40 Dose: 1 applic Chlordiazepoxide HCl (Librium -) 25 mg PO HS [facility] Last Admin: 03/30/17 22:49 Dose: 25 mg Folic Acid (Folic Acid -) 1 mg PO DAILY [facility] Last Admin: 03/31/17 11:35 Dose: 1 mg Gabapentin (Neurontin -) 400 mg PO TID [facility] Last Admin: 03/31/17 14:40 Dose: 400 mg Heparin Sodium (Porcine) (Heparin -) 5,000 unit SQ TID [facility] Last Admin: 03/31/17 14:39 Dose: 5,000 unit Ibuprofen (Motrin -) 400 mg PO Q6H PRN PRN Reason: PAIN Last Admin: 03/28/17 15:25 Dose: 400 mg Metoprolol Tartrate (Lopressor -) 25 mg PO BID [facility] Last Admin: 03/31/17 10:37 Dose: Not Given Multi-Ingredient Lotion (Eucerin (Large Jar) -) 1 applic TP DAILY PRN PRN Reason: DRY SKIN Multi-Ingredient Ointment (Zinc Oxide) 1 applic TP BID [facility] Last Admin: 03/31/17 11:40 Dose: 1 applic Multivitamins/Minerals/Vitamin C (Tab-A-Vit -) 1 tab PO DAILY [facility] Last Admin: 03/31/17 11:39 Dose: 1 tab Nicotine (Nicoderm Patch -) 14 mg TD DAILY [facility] Last Admin: 03/31/17 11:40 Dose: 14 mg Nystatin (Nystop Powder -) 1 applic TP BID [facility] Last Admin: 03/31/17 11:39 Dose: 1 applic Ondansetron HCl (Zofran Odt -) 8 mg SL Q8H PRN PRN Reason: NAUSEA AND/OR VOMITING Last Admin: 03/30/17 09:47 Dose: 8 mg Quetiapine Fumarate (Seroquel Xr -) 300 mg PO HS@1999 [facility] Last Admin: 03/30/17 22:51 Dose: 300 mg Ranitidine HCl (Zantac -) 150 mg PO DAILY [facility] Last Admin: 03/31/17 11:39 Dose: 150 mg Sertraline HCl (Zoloft -) 100 mg PO BID [facility] Last Admin: 03/31/17 11:38 Dose: 100 mg Sodium Chloride ([place] -) 2 spray NS BID PRN PRN Reason: NASAL CONGESTION Last Admin: 03/30/17 09:47 Dose: 2 sprays Thiamine HCl (Vitamin B1 -) 100 mg PO DAILY [facility] Last Admin: 03/31/17 11:38 Dose: 100 mg A/P NSCLC - Adenocarcinoma s/p R VATS/Wedge Resection/CT placement now removed 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
[2017-03-31] MEDS ORDERED: MAGNESIUM OXIDE 400 MG TABLET (FP) PO ONE (19:51)
--- NOTE | 2017-03-31 19:53 | PN ---
Physical Exam: SUBJECTIVE: Patient seen and examined. Pt on 1:1. Wrist restraints D/Michael. Trach and rader in g-tube site sutured in place by Dr. Lucero last night. No events overnight. OBJECTIVE: Vital Signs Period Temp Pulse Resp BP Sys/Clay Pulse Ox Last 24 Hr 98.0 F-98.8 F 70-88 19-22 106-135/51-80 98-100 GENERAL: AAOx3, NAD. NECK: Trachea midline, supple. Trach sutured in place. LUNGS: Breath sounds equal, clear to auscultation bilaterally, no wheezes, no crackles, no accessory muscle use. HEART: Regular rate and rhythm, S1, S2 without murmur, rub or gallop. ABDOMEN: Soft, nontender, nondistended. G-tube sutured in place. EXTREMITIES: Warm, well-perfused, no edema. Both thigh flap sites C/D/I. Laboratory Results - last 24 hr 03/31/17 03/31/17 06:30 06:30 WBC 9.7 RBC 3.29 L Hgb 10.1 L Hct 29.8 L MCV 90.6 MCH 30.8 MCHC 34.0 RDW 13.7 Plt Count 213 MPV 9.7 Sodium 141 Potassium 3.8 Chloride 105 Carbon Dioxide 29 Anion Gap 7 L BUN 14 Creatinine 0.9 Creat Clearance w eGFR > 60 Random Glucose 100 Calcium 8.6 Phosphorus 4.0 Magnesium 1.7 L Total Bilirubin 0.3 D AST 11 L D ALT 19 D Alkaline Phosphatase 69 D Total Protein 6.9 Albumin 2.9 L Active Medications Generic Name Dose Route Start Last Admin Trade Name Freq PRN Reason Stop Dose Admin Acetylcysteine 600 mg 03/23/17 22:00 03/31/17 14:02 Mucomyst 20 Oral / Inh Use Only* NEB 600 mg TIDR JUNIOR Administration Albuterol Sulfate 1 amp 03/23/17 14:18 03/31/17 14:03 Ventolin 0.083% Nebulizer Soln - NEB 1 amp Q6H PRN Administration WHEEZING Albuterol Sulfate 1 amp 03/23/17 14:18 03/30/17 14:05 Ventolin 0.5% - NEB 1 amp Q4H PRN Administration SHORT OF BREATH/WHEEZING Allopurinol 100 mg 03/24/17 10:00 03/31/17 11:41 Zyloprim - PO 100 mg DAILY JUNIOR Administration Amlodipine Besylate 10 mg 03/24/17 10:00 03/31/17 10:35 Norvasc - PO Not Given DAILY JUNIOR Aspirin 81 mg 03/24/17 10:00 03/31/17 11:38 Asa - PO 81 mg DAILY JUNIOR Administration Bacitracin 1 applic 03/23/17 22:00 03/31/17 11:40 Bacitracin - TP 1 applic BID JUNIOR Administration Chlordiazepoxide HCl 25 mg 03/23/17 22:00 03/30/17 22:49 Librium - PO 25 mg HS JUNIOR Administration Folic Acid 1 mg 03/24/17 10:00 03/31/17 11:35 Folic Acid - PO 1 mg DAILY JUNIOR Administration Gabapentin 400 mg 03/23/17 22:00 03/31/17 14:40 Neurontin - PO 400 mg TID JUNIOR Administration Heparin Sodium (Porcine) 5,000 unit 03/23/17 22:00 03/31/17 14:39 Heparin - SQ 5,000 unit TID JUNIOR Administration Ibuprofen 400 mg 03/23/17 14:18 03/28/17 15:25 Motrin - PO 400 mg Q6H PRN Administration PAIN Metoprolol Tartrate 25 mg 03/23/17 22:00 03/31/17 10:37 Lopressor - PO Not Given BID JN[facility]OR Multi-Ingredient Lotion 1 applic 03/23/17 14:18 Eucerin (Large Jar) - TP DAILY PRN DRY SKIN Multi-Ingredient Ointment 1 applic 03/23/17 22:00 03/31/17 11:40 Zinc Oxide TP 1 applic BID JUNIOR Administration Multivitamins/Minerals/Vitamin C 1 tab 03/24/17 10:00 03/31/17 11:39 Tab-A-Vit - PO 1 tab DAILY JUNIOR Administration Nicotine 14 mg 03/23/17 15:00 03/31/17 11:40 Nicoderm Patch - TD 14 mg DAILY JUNIOR Administration Nystatin 1 applic 03/23/17 22:00 03/31/17 11:39 Nystop Powder - TP 1 applic BID JUNIOR Administration Ondansetron HCl 8 mg 03/23/17 14:18 03/30/17 09:47 Zofran Odt - SL 8 mg Q8H PRN Administration NAUSEA AND/OR VOMITING Quetiapine Fumarate 300 mg 03/23/17 20:00 03/30/17 22:51 Seroquel Xr - PO 300 mg HS@2000 JUNIOR Administration Ranitidine HCl 150 mg 03/24/17 10:00 03/31/17 11:39 Zantac - PO 150 mg DAILY JUNIOR Administration Sertraline HCl 100 mg 03/23/17 22:00 03/31/17 11:38 Zoloft - PO 100 mg BID JUNIOR Administration Sodium Chloride 2 spray 03/23/17 14:18 03/30/17 09:47 [place] Nasal [place] - NS 2 sprays BID PRN Administration NASAL CONGESTION Thiamine HCl 100 mg 03/24/17 10:00 03/31/17 11:38 Vitamin B1 - PO 100 mg DAILY JUNIOR Administration ASSESSMENT/PLAN: 56yo M with PMH of nicotine dependence, Right lung CA, CAD with 2 stents, htn, hld, gout, presented with worsening cough and sputum production and admitted to med-surg for lung resection, 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 # acute intermittent delirium - mental status improved - continue Librium, Seroquel, and Zoloft - Psych and Detox recs appreciated - 1:1 re-started, wrist restraints D/Michael # Laryngeal SCC, s/p laryngectomy with left anterolateral thigh flap pharyngeal reconstruction on 02/20/17, s/p tracheo-esophageal puncture on 03/23/17 - continue Motrin prn and Neurontin - suction q3-4hrs and prn - O2 prn - pt will require 6-7 weeks of daily radiation therapy -> Administration researching options for transport, rehab, insurance, placement, etc. # acute hypoxic respiratory failure - resolved, trach sutured in place - continue mucomyst with albuterol nebs # htn - continue Norvasc and Lopressor # CAD s/p 2 stents - continue ASA # gout - continue Allopurinol # nicotine dependence - continue nicoderm patch 14mg # hypomagnesemia - repleted with Mag Ox 800mg # FEN - Fluids: encourage po - Electolytes: continue to monitor. - Nutrition: soft diet # Prophylaxis - DVT ppx with Heparin TID - GI ppx with Zantac - deconditioning ppx with PT and Chest PT Visit type - Emergency Visit Emergency Visit: Yes ED Registration Date: 02/11/17 Care time: The patient presented to the Emergency Department on the above date and was hospitalized for further evaluation of their emergent condition. - New Patient This patient is new to me today: No - Critical Care Critical Care patient: No
--- NOTE | 2017-03-31 21:12 | PN ---
Progress Note (short form) - Note Progress Note: Radiation Oncology Seen this morning. Continues to slowly recover, with periods of agitation requiring restraints. Trach and G-tubes sutured in place as he has been pulling out trach. Surgical wounds healing well. 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 Discussed with Dr. Bledsoe. Patient will benefit from postop RT/chemo due to high recurrence risk. Eventual discharge to SNF is planned. Now at 5 weeks postop. Ideally would start any adjuvant tx around 6 weeks postop. I discussed with pt logistics of daily tx (M-F) over 6-7 weeks with an immobilization mask for ten minutes, importance of compliance with tx schedule, side effects including but not limited to dermatitis, myelosuppression, fatigue , mucositis, fibrosis, potential need to rely on feeding tube for nutritional supplementation, the alternative of expectant management. Also discussed the possibility of concurrent chemotx by medical oncologist. He expressed desire to have tx using clipboard. Will attempt a simulation CT scan to determine if he can cooperate/tolerate treatment positioning with thermoplastic mask. Will need med onc input to determine if he is a candidate for concurrent chemotx. Have requested hospital approval for inpatient RT treatments.
[2017-03-31] MEDS: chlordiazePOXIDE HCL 25 MG CAPSULE PO SCH (22:49)
--- NOTE | 2017-03-31 23:56 | PN ---
Teaching Attending Note Name of Resident: Gloria Zaldivar ATTENDING PHYSICIAN STATEMENT I saw and evaluated the patient. I reviewed the resident's note and discussed the case with the resident. I agree with the resident's findings and plan as documented. SUBJECTIVE: Patient is calmer today. OBJECTIVE: Vital Signs Temperature 98.0 F 03/31/17 19:00 Pulse Rate 88 03/31/17 19:00 Respiratory Rate 20 03/31/17 19:00 Blood Pressure 133/77 03/31/17 19:00 O2 Sat by Pulse Oximetry (%) 100 03/31/17 11:00 CBCD WBC 9.7 K/mm3 (4.0-10.0) 03/31/17 06:30 RBC 3.29 M/mm3 (4.00-5.60) L 03/31/17 06:30 Hgb 10.1 GM/dL (11.7-16.9) L 03/31/17 06:30 Hct 29.8 % (35.4-49) L 03/31/17 06:30 MCV 90.6 fl (80-96) 03/31/17 06:30 MCHC 34.0 g/dl (32.0-35.9) 03/31/17 06:30 RDW 13.7 % (11.9-15.9) 03/31/17 06:30 Plt Count 213 K/MM3 (134-434) 03/31/17 06:30 MPV 9.7 fl (7.5-11.1) 03/31/17 06:30 CMP Sodium 141 mmol/L (136-145) 03/31/17 06:30 Potassium 3.8 mmol/L (3.5-5.1) 03/31/17 06:30 Chloride 105 mmol/L (98-107) 03/31/17 06:30 Carbon Dioxide 29 mmol/L (21-32) 03/31/17 06:30 Anion Gap 7 (8-16) L 03/31/17 06:30 BUN 14 mg/dL (7-18) 03/31/17 06:30 Creatinine 0.9 mg/dL (0.7-1.3) 03/31/17 06:30 Creat Clearance w eGFR > 60 (>60) 03/31/17 06:30 Random Glucose 100 mg/dL (74-106) 03/31/17 06:30 Calcium 8.6 mg/dL (8.5-10.1) 03/31/17 06:30 Total Bilirubin 0.3 mg/dL (0.2-1.0) D 03/31/17 06:30 AST 11 U/L (15-37) L D 03/31/17 06:30 ALT 19 U/L (12-78) D 03/31/17 06:30 Alkaline Phosphatase 69 U/L (45-117) D 03/31/17 06:30 Total Protein 6.9 g/dl (6.4-8.2) 03/31/17 06:30 Albumin 2.9 g/dl (3.4-5.0) L 03/31/17 06:30 CARDIAC ENZYMES Creatine Kinase 71 IU/L (39-308) 02/11/17 10:24 Troponin I < 0.02 ng/ml (0.00-0.05) 02/11/17 10:24 Current Medications Generic Name Dose Route Start Last Admin Trade Name Freq PRN Reason Stop Dose Admin Acetylcysteine 600 mg 03/23/17 22:00 03/31/17 14:02 Mucomyst 20 Oral / Inh Use Only* NEB 600 mg TIDR JUNIOR Administration Albuterol Sulfate 1 amp 03/23/17 14:18 03/31/17 14:03 Ventolin 0.083% Nebulizer Soln - NEB 1 amp Q6H PRN Administration WHEEZING Albuterol Sulfate 1 amp 03/23/17 14:18 03/30/17 14:05 Ventolin 0.5% - NEB 1 amp Q4H PRN Administration SHORT OF BREATH/WHEEZING Allopurinol 100 mg 03/24/17 10:00 03/31/17 11:41 Zyloprim - PO 100 mg DAILY [facility] Administration Amlodipine Besylate 10 mg 03/31/17 19:49 Norvasc - PO DAILY [facility] Aspirin 81 mg 03/24/17 10:00 03/31/17 11:38 Asa - PO 81 mg DAILY [facility] Administration Bacitracin 1 applic 03/23/17 22:00 03/31/17 22:49 Bacitracin - TP 1 applic BID [facility] Administration Chlordiazepoxide HCl 25 mg 03/23/17 22:00 03/31/17 22:49 Librium - PO 25 mg HS [facility]UNIOR Administration Folic Acid 1 mg 03/24/17 10:00 03/31/17 11:35 Folic Acid - PO 1 mg DAILY [facility] Administration Gabapentin 400 mg 03/23/17 22:00 03/31/17 22:49 Neurontin - PO 400 mg TID JUNIOR Administration Heparin Sodium (Porcine) 5,000 unit 03/23/17 22:00 03/31/17 22:50 Heparin - SQ 5,000 unit TID [facility]UNIOR Administration Ibuprofen 400 mg 03/23/17 14:18 03/28/17 15:25 Motrin - PO 400 mg Q6H PRN Administration PAIN Metoprolol Tartrate 25 mg 03/31/17 19:49 03/31/17 22:49 Lopressor - PO 25 mg BID [facility] Administration Multi-Ingredient Lotion 1 applic 03/23/17 14:18 Eucerin (Large Jar) - TP DAILY PRN DRY SKIN Multi-Ingredient Ointment 1 applic 03/23/17 22:00 03/31/17 22:48 Zinc Oxide TP 1 applic BID [facility] Administration Multivitamins/Minerals/Vitamin C 1 tab 03/24/17 10:00 03/31/17 11:39 Tab-A-Vit - PO 1 tab DAILY [facility] Administration Nicotine 14 mg 03/23/17 15:00 03/31/17 11:40 Nicoderm Patch - TD 14 mg DAILY [facility] Administration Nystatin 1 applic 03/23/17 22:00 03/31/17 22:48 Nystop Powder - TP 1 applic BID [facility] Administration Ondansetron HCl 8 mg 03/23/17 14:18 03/30/17 09:47 Zofran Odt - SL 8 mg Q8H PRN Administration NAUSEA AND/OR VOMITING Quetiapine Fumarate 300 mg 03/23/17 20:00 03/31/17 20:37 Seroquel Xr - PO 300 mg HS@2000 JUN[facility] Administration Ranitidine HCl 150 mg 03/24/17 10:00 03/31/17 11:39 Zantac - PO 150 mg DAILY [facility] Administration Sertraline HCl 100 mg 03/23/17 22:00 03/31/17 22:49 Zoloft - PO 100 mg BID [facility] Administration Sodium Chloride 2 spray 03/23/17 14:18 03/30/17 09:47 [place] Nasal [place] - NS 2 sprays BID PRN Administration NASAL CONGESTION Thiamine HCl 100 mg 03/24/17 10:00 12/12/17 11:38 Vitamin B1 - PO 100 mg DAILY [facility] Administration Home Medications Medication Instructions Recorded Amlodipine Besylate 10 mg PO DAILY 12/23/16 Atorvastatin Ca [Lipitor] 10 mg PO HS 12/23/16 Gabapentin 800 mg PO TID 12/23/16 Quetiapine Fumarate "Xr" [Seroquel 300 mg PO ACDIN 12/23/16 Xr -] Sertraline HCl [Zoloft] 100 mg PO BID 12/23/16 Folic Acid 1 mg PO DAILY 01/02/17 Allopurinol [Zyloprim -] 100 mg PO DAILY 02/12/17 Aspirin [ASA -] 81 mg PO DAILY 02/12/17 PE: per resident's note ASSESSMENT AND PLAN: Patient is a 56 y/o gentleman with h/o Nicotine dependence, HTN, CAD s/p Stenting , hyperlipidemia and recently diagnosed R lung adenocarcinoma who presented for pulmonary resection. 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 POD#6 s/p suture to stabilize the trach.s/p tracheo-esophageal puncture by ENT, Nguyen Crain on the case , discussed with ; will stabilize the trach. since as per patient is popping out by itself . Dr. Bledsoe sutured in tracheostomy and gastrostomy tubes after sterilizing the area. He tolerated the procedure well. PT to improve strength to stand and walk. Continue anxiolytics as needed. Suction trach as needed. As per ENT to forego TEP training for now. # s/p Acute hypoxic resp failure,resolved on O2 through trach. # Acute delirium improved .continue seroquel 300 xr , continue librium standing at Hs and Prn during the day continue. continue Zoloft as well Dr. Branch and psych revaluation appreciated. # HTN -cont norvasc and Metoprolol. # CAD: aspirin # Nicotine dependence : nicotine patch . DVT px with heparin
[2017-04-01] MEDS: ALBUTEROL SO4 0.083% IH SOL 2.5 MG/3 ML VIAL.NEB. NEB PRN ×3 (00:35→22:36)
[2017-04-01] MEDS: ACETYLCYSTEINE 20% 200MG/ML 4 ML VIAL *FOR ORAL / INH USE ONLY NEB SCH ×3 (06:00→22:36)
[2017-04-01] MEDS: HEPARIN NA (PORCINE) 5,000 UNITS/ML 1ML VIAL SQ SCH ×3 (06:45→21:25)
[2017-04-01] MEDS: GABAPENTIN 400 MG CAPSULE (FP) PO SCH ×3 (06:46→21:26)
[2017-04-01] MEDS: amLODIPine BESYLATE 10 MG TABLET (FP) PO SCH (10:00)
[2017-04-01] MEDS: ASPIRIN 81 MG CHEWABLE TABLETS PO SCH (10:00)
[2017-04-01] MEDS: MULTIVITAMINS (DAILY MVI) TABLET (FP) PO SCH (10:00)
[2017-04-01] MEDS: THIAMINE HCL 100 MG TABLET (FP) PO SCH (10:00)
[2017-04-01] MEDS: METOPROLOL TARTRATE 25 MG TABLET (FP) PO SCH ×2 (10:00→21:26)
[2017-04-01] MEDS: RANITIDINE HCL 150 MG TABLET (FP) PO SCH (10:00)
[2017-04-01] MEDS: NICOTINE 14 MG/24 HOURS TOPICAL PATCH TD SCH (10:01)
[2017-04-01] MEDS: BACITRACIN 15 GM TUBE TOPICAL OINTMENT TP SCH ×2 (10:01→21:24)
[2017-04-01] MEDS: ALLOPURINOL 100 MG TABLET (FP) PO SCH (10:01)
[2017-04-01] MEDS: FOLIC ACID 1 MG TABLET (FP) PO SCH (10:01)
[2017-04-01] MEDS: SERTRALINE HCL 50 MG TABLET (FP) PO SCH ×2 (10:01→21:26)
[2017-04-01] MEDS: NYSTATIN POWDER 100,000 UNITS/GM - 15 GM TOPICAL POWDER TP SCH ×2 (10:01→21:27)
[2017-04-01] MEDS: ZINC OXIDE 20% TOPICAL OINTMENT 30 GM TUBE TP SCH ×2 (10:01→21:27)
--- NOTE | 2017-04-01 10:50 | PN ---
Progress Note, [employer]OR[employer]IC[employer] TRAINER - Note Progress Note: Educated pt and staff on communication board and writing to facilitate communication. Pt mouthing words with varying clarity. TEP on hold. Trach sutured in place for now.
--- NOTE | 2017-04-01 11:13 | PN ---
Progress Note (short form) - Note Progress Note: Patient seen and examined Medical Oncology follow-up All the events/consults noted. O/E NAD,sleepy Neck trach collar on . CV: RRR Lungs: clear bilaterally Abd: soft, NT, ND , PEG in place Temp Pulse Resp BP Pulse Ox 98.5 F 81 20 116/78 100 04/01/17 06:00 04/01/17 10:00 04/01/17 06:00 04/01/17 06:00 04/01/17 10:00 CBC, BMP 03/31/17 06:30 03/31/17 06:30 Current Medications Generic Name Dose Route Start Last Admin Trade Name Freq PRN Reason Stop Dose Admin Acetylcysteine 600 mg 03/23/17 22:00 04/01/17 06:00 Mucomyst 20 Oral / Inh Use Only* NEB 600 mg TIDR JUNIOR Administration Albuterol Sulfate 1 amp 03/23/17 14:18 04/01/17 06:00 Ventolin 0.083% Nebulizer Soln - NEB 1 amp Q6H PRN Administration WHEEZING Albuterol Sulfate 1 amp 03/23/17 14:18 03/30/17 14:05 Ventolin 0.5% - NEB 1 amp Q4H PRN Administration SHORT OF BREATH/WHEEZING Allopurinol 100 mg 03/24/17 10:00 04/01/17 10:01 Zyloprim - PO 100 mg DAILY JUNIOR Administration Amlodipine Besylate 10 mg 03/31/17 19:49 04/01/17 10:00 Norvasc - PO 10 mg DAILY JUNIOR Administration Aspirin 81 mg 03/24/17 10:00 04/01/17 10:00 Asa - PO 81 mg DAILY JUNIOR Administration Bacitracin 1 applic 03/23/17 22:00 04/01/17 10:01 Bacitracin - TP 1 applic BID JUNIOR Administration Chlordiazepoxide HCl 25 mg 03/23/17 22:00 03/31/17 22:49 Librium - PO 25 mg HS JUNIOR Administration Folic Acid 1 mg 03/24/17 10:00 04/01/17 10:01 Folic Acid - PO 1 mg DAILY JUNIOR Administration Gabapentin 400 mg 03/23/17 22:00 04/01/17 06:46 Neurontin - PO 400 mg TID JUNIOR Administration Heparin Sodium (Porcine) 5,000 unit 03/23/17 22:00 04/01/17 06:45 Heparin - SQ 5,000 unit TID JUNIOR Administration Ibuprofen 400 mg 03/23/17 14:18 03/28/17 15:25 Motrin - PO 400 mg Q6H PRN Administration PAIN Metoprolol Tartrate 25 mg 03/31/17 19:49 04/01/17 10:00 Lopressor - PO 25 mg BID JUNIOR Administration Multi-Ingredient Lotion 1 applic 03/23/17 14:18 Eucerin (Large Jar) - TP DAILY PRN DRY SKIN Multi-Ingredient Ointment 1 applic 03/23/17 22:00 04/01/17 10:01 Zinc Oxide TP 1 applic BID JUNIOR Administration Multivitamins/Minerals/Vitamin C 1 tab 03/24/17 10:00 04/01/17 10:00 Tab-A-Vit - PO 1 tab DAILY JUNIOR Administration Nicotine 14 mg 03/23/17 15:00 04/01/17 10:01 Nicoderm Patch - TD 14 mg DAILY JUNIOR Administration Nystatin 1 applic 03/23/17 22:00 04/01/17 10:01 Nystop Powder - TP 1 applic BID JUNIOR Administration Ondansetron HCl 8 mg 03/23/17 14:18 03/30/17 09:47 Zofran Odt - SL 8 mg Q8H PRN Administration NAUSEA AND/OR VOMITING Quetiapine Fumarate 300 mg 03/23/17 20:00 03/31/17 20:37 Seroquel Xr - PO 300 mg HS@2000 JUNIOR Administration Ranitidine HCl 150 mg 03/24/17 10:00 04/01/17 10:00 Zantac - PO 150 mg DAILY JUNIOR Administration Sertraline HCl 100 mg 03/23/17 22:00 04/01/17 10:01 Zoloft - PO 100 mg BID JUNIOR Administration Sodium Chloride 2 spray 03/23/17 14:18 03/30/17 09:47 [place] Nasal [place] - NS 2 sprays BID PRN Administration NASAL CONGESTION Thiamine HCl 100 mg 03/24/17 10:00 04/01/17 10:00 Vitamin B1 - PO 100 mg DAILY JUNIOR Administration Assessment/Plan: 56 yo w 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 as reportedly some improvement and now being considered for RT> as per RN RT sim today ,visited him to discuss about a possibility of cisplatin, he is very sleepy , despite multiple attempts , he returned to fall back asleep. He still remains a challenge. will follow him more closely from now on. d/w [facility].
--- NOTE | 2017-04-01 16:21 | PN ---
Progress Note (short form) - Note Progress Note: PULMONARY RESTING COMFORTABLY VSS/AFEBRILE ANICTERIC/TRACH W O2 COLLAR CLEAR ANTERIOR BREATH SOUNDS S1S2 BS+ SOFT NO EDEMA LABS/MEDS/NOTES/IMAGES REVIEWED 1) newly diagnosed RUL adenocarcinoma - s/p vats wedge resection/right - Dilaudid/Oxycodone for pain - incentive spirometry - O2 prn 2) Supraglottic lesion - s/p laryngoscopy biopsy revealing squamous cell Ca - s/p total laryngectomy and radical neck dissection revealing stage 4b disease - needs adjuvant therapy - keep trach in place for now 3) ETOH abuse 4) CAD s/p PCI stents 5) DVT Prophylaxis - Heparin 5,000U SQ BID - sheree Anni MARTINEZ MD
--- NOTE | 2017-04-01 19:53 | PN ---
Teaching Attending Note Name of Resident: Gloria Zaldivar ATTENDING PHYSICIAN STATEMENT I saw and evaluated the patient. I reviewed the resident's note and discussed the case with the resident. I agree with the resident's findings and plan as documented. SUBJECTIVE: NO fever or chills . no pain. OBJECTIVE: NAD,awake, but lethargic , arousable Neck with well healing scar. trach collar on . CV: RRR Lungs: clear bilaterally Ext: R anterior dry thigh wounds Abd: soft, NT, ND , PEG in place ASSESSMENT AND PLAN: 56 y/o gentleman with h/o Nicotine dependence, HTN, CAD s/p Stenting , hyperlipidemia and recently diagnosed R lung adenocarcinoma who presented for pulmonary resection. 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 Cont O2 through trach 2- Acute delirium. improved , but now slightly lethargic - cont librium - cont increased dose of seroquel 300 xr . if cont to be lethargic , can decrease dose 3- Laryngeal SCC s/p larynegectomy, with flap reconstruction - plan for Rtx - possibel chemo after d/w pt -D/W Dr. Obregon 4- HTN -cont norvasc and Metoprolol. 5- CAD: aspirin 6- Nicotine dependence : nicotine patch . DVT px with heparin
--- NOTE | 2017-04-01 20:39 | PN ---
Physical Exam: SUBJECTIVE: Patient seen and examined. Pt denies pain, fever, chills. No events overnight. OBJECTIVE: Vital Signs Period Temp Pulse Resp BP Sys/Clay Pulse Ox Last 24 Hr 98.5 F-98.9 F 70-81 18-22 101-130/51-80 100-100 GENERAL: AAOx3, NAD. NECK: Trachea midline, supple. Trach sutured in place. LUNGS: Breath sounds equal, clear to auscultation bilaterally, no wheezes, no crackles, no accessory muscle use. HEART: Regular rate and rhythm, S1, S2 without murmur, rub or gallop. ABDOMEN: Soft, nontender, nondistended, (+) bowel sounds x 4. G-tube sutured in place. EXTREMITIES: Warm, well-perfused, no edema. Both thigh flap sites C/D/I. Active Medications Generic Name Dose Route Start Last Admin Trade Name Freq PRN Reason Stop Dose Admin Acetylcysteine 600 mg 03/23/17 22:00 04/01/17 14:00 Mucomyst 20 Oral / Inh Use Only* NEB Not Given TIDR JUNIOR Albuterol Sulfate 1 amp 03/23/17 14:18 04/01/17 06:00 Ventolin 0.083% Nebulizer Soln - NEB 1 amp Q6H PRN Administration WHEEZING Albuterol Sulfate 1 amp 03/23/17 14:18 03/30/17 14:05 Ventolin 0.5% - NEB 1 amp Q4H PRN Administration SHORT OF BREATH/WHEEZING Allopurinol 100 mg 03/24/17 10:00 04/01/17 10:01 Zyloprim - PO 100 mg DAILY JUNIOR Administration Amlodipine Besylate 10 mg 03/31/17 19:49 04/01/17 10:00 Norvasc - PO 10 mg DAILY JUNIOR Administration Aspirin 81 mg 03/24/17 10:00 04/01/17 10:00 Asa - PO 81 mg DAILY JUNIOR Administration Bacitracin 1 applic 03/23/17 22:00 04/01/17 10:01 Bacitracin - TP 1 applic BID JUNIOR Administration Chlordiazepoxide HCl 25 mg 03/23/17 22:00 03/31/17 22:49 Librium - PO 25 mg HS JUNIOR Administration Folic Acid 1 mg 03/24/17 10:00 04/01/17 10:01 Folic Acid - PO 1 mg DAILY JUNIOR Administration Gabapentin 400 mg 03/23/17 22:00 04/01/17 14:00 Neurontin - PO 400 mg TID JUNIOR Administration Heparin Sodium (Porcine) 5,000 unit 03/23/17 22:00 04/01/17 14:00 Heparin - SQ 5,000 unit TID JUNIOR Administration Ibuprofen 400 mg 03/23/17 14:18 03/28/17 15:25 Motrin - PO 400 mg Q6H PRN Administration PAIN Metoprolol Tartrate 25 mg 03/31/17 19:49 04/01/17 10:00 Lopressor - PO 25 mg BID JUNIOR Administration Multi-Ingredient Lotion 1 applic 03/23/17 14:18 Eucerin (Large Jar) - TP DAILY PRN DRY SKIN Multi-Ingredient Ointment 1 applic 03/23/17 22:00 04/01/17 10:01 Zinc Oxide TP 1 applic BID JUNIOR Administration Multivitamins/Minerals/Vitamin C 1 tab 03/24/17 10:00 04/01/17 10:00 Tab-A-Vit - PO 1 tab DAILY JUNIOR Administration Nicotine 14 mg 03/23/17 15:00 04/01/17 10:01 Nicoderm Patch - TD 14 mg DAILY JUNIOR Administration Nystatin 1 applic 03/23/17 22:00 04/01/17 10:01 Nystop Powder - TP 1 applic BID JUNIOR Administration Ondansetron HCl 8 mg 03/23/17 14:18 03/30/17 09:47 Zofran Odt - SL 8 mg Q8H PRN Administration NAUSEA AND/OR VOMITING Quetiapine Fumarate 300 mg 03/23/17 20:00 03/31/17 20:37 Seroquel Xr - PO 300 mg HS@2000 JUNIOR Administration Ranitidine HCl 150 mg 03/24/17 10:00 04/01/17 10:00 Zantac - PO 150 mg DAILY JUNIOR Administration Sertraline HCl 100 mg 03/23/17 22:00 04/01/17 10:01 Zoloft - PO 100 mg BID JUNIOR Administration Sodium Chloride 2 spray 03/23/17 14:18 03/30/17 09:47 [place] Nasal [place] - NS 2 sprays BID PRN Administration NASAL CONGESTION Thiamine HCl 100 mg 03/24/17 10:00 04/01/17 10:00 Vitamin B1 - PO 100 mg DAILY JUNIOR Administration ASSESSMENT/PLAN: 56yo M with PMH of nicotine dependence, Right lung CA, CAD with 2 stents, htn, hld, gout, presented with worsening cough and sputum production and admitted to med-surg for lung resection, 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 # acute intermittent delirium - mental status improved - continue Librium, Seroquel, and Zoloft - 1:1 re-started, wrist restraints D/Michael # Laryngeal SCC, s/p laryngectomy with left anterolateral thigh flap pharyngeal reconstruction on 02/20/17, s/p tracheo-esophageal puncture on 03/23/17 - continue Motrin prn and Neurontin - suction q3-4hrs and prn - O2 prn - pt will require 6-7 weeks of daily radiation therapy -> Administration researching options for transport, rehab, insurance, placement, etc. - possible concurrent chemotherapy per Dr. Duran - simulation CT scan done to determine if pt can cooperate/tolerate treatment positioning with thermoplastic mask # acute hypoxic respiratory failure - resolved, trach sutured in place - continue mucomyst with albuterol nebs # htn - continue Norvasc and Lopressor # CAD s/p 2 stents - continue ASA # gout - continue Allopurinol # nicotine dependence - continue nicoderm patch 14mg # FEN - Fluids: encourage po - Electolytes: continue to monitor. - Nutrition: soft diet # Prophylaxis - DVT ppx with Heparin TID - GI ppx with Zantac - deconditioning ppx with PT and Chest PT Visit type - Emergency Visit Emergency Visit: Yes ED Registration Date: 02/11/17 Care time: The patient presented to the Emergency Department on the above date and was hospitalized for further evaluation of their emergent condition. - New Patient This patient is new to me today: No - Critical Care Critical Care patient: No
[2017-04-01] MEDS: chlordiazePOXIDE HCL 25 MG CAPSULE PO SCH (21:25)
--- NOTE | 2017-04-01 21:35 | PN ---
Progress Note (short form) - Note Progress Note: Radiation Oncology Came for simulation CT and tolerated mask and scan. Will proceed with RT planning (about a week). Discussed with Dr. Duran and pt may be a candidate for concurrent cisplatin. She will further evaluate the pt. Will continue to monitor patient and if he remains cooperative and out of restraints, may be able to begin RT/chemo with next week or so pending med onc plan. Agree with OOB and PT if feasible.
[2017-04-02] MEDS: ACETYLCYSTEINE 20% 200MG/ML 4 ML VIAL *FOR ORAL / INH USE ONLY NEB SCH ×3 (06:10→22:15)
[2017-04-02] MEDS: ALBUTEROL SO4 0.083% IH SOL 2.5 MG/3 ML VIAL.NEB. NEB PRN ×2 (06:10→14:30)
[2017-04-02] MEDS: HEPARIN NA (PORCINE) 5,000 UNITS/ML 1ML VIAL SQ SCH ×3 (06:33→22:16)
[2017-04-02] MEDS: GABAPENTIN 400 MG CAPSULE (FP) PO SCH ×3 (06:34→22:15)
[2017-04-02] MEDS ORDERED: MAGNESIUM OXIDE 400 MG TABLET (FP) PO ONE ×2 (08:30→11:00)
--- NOTE | 2017-04-02 08:55 | PN ---
Physical Exam: SUBJECTIVE: Patient seen and examined. Pt denies nausea, vomiting, diarrhea, constipation, chest pain, abdominal pain, sob, fever, chills. Pt tolerated simulation radiation treatment yesterday. No events overnight. OBJECTIVE: Vital Signs Period Temp Pulse Resp BP Sys/Clay Pulse Ox Last 24 Hr 97.6 F-98.9 F 68-95 18-18 101-130/51-88 96-100 GENERAL: AAOx3, NAD. NECK: Trachea midline, supple. Trach sutured in place. LUNGS: Breath sounds equal, clear to auscultation bilaterally, no wheezes, no crackles, no accessory muscle use. HEART: Regular rate and rhythm, S1, S2 without murmur, rub or gallop. ABDOMEN: Soft, nontender, nondistended. G-tube sutured in place. EXTREMITIES: Warm, well-perfused, no edema. Both thigh flap sites C/D/I. Active Medications Generic Name Dose Route Start Last Admin Trade Name Freq PRN Reason Stop Dose Admin Acetylcysteine 600 mg 03/23/17 22:00 04/02/17 06:10 Mucomyst 20 Oral / Inh Use Only* NEB 600 mg TIDR JUNIOR Administration Albuterol Sulfate 1 amp 03/23/17 14:18 04/02/17 06:10 Ventolin 0.083% Nebulizer Soln - NEB 1 amp Q6H PRN Administration WHEEZING Albuterol Sulfate 1 amp 03/23/17 14:18 03/30/17 14:05 Ventolin 0.5% - NEB 1 amp Q4H PRN Administration SHORT OF BREATH/WHEEZING Allopurinol 100 mg 03/24/17 10:00 04/01/17 10:01 Zyloprim - PO 100 mg DAILY JUNIOR Administration Amlodipine Besylate 10 mg 03/31/17 19:49 04/01/17 10:00 Norvasc - PO 10 mg DAILY JUNIOR Administration Aspirin 81 mg 03/24/17 10:00 04/01/17 10:00 Asa - PO 81 mg DAILY JUNIOR Administration Bacitracin 1 applic 03/23/17 22:00 04/01/17 21:24 Bacitracin - TP 1 applic BID JUNIOR Administration Chlordiazepoxide HCl 25 mg 03/23/17 22:00 04/01/17 21:25 Librium - PO 25 mg HS JUNIOR Administration Folic Acid 1 mg 03/24/17 10:00 04/01/17 10:01 Folic Acid - PO 1 mg DAILY JUNIOR Administration Gabapentin 400 mg 03/23/17 22:00 04/02/17 06:34 Neurontin - PO 400 mg TID JUNIOR Administration Heparin Sodium (Porcine) 5,000 unit 03/23/17 22:00 04/02/17 06:33 Heparin - SQ 5,000 unit TID JUNIOR Administration Ibuprofen 400 mg 03/23/17 14:18 03/28/17 15:25 Motrin - PO 400 mg Q6H PRN Administration PAIN Metoprolol Tartrate 25 mg 03/31/17 19:49 04/01/17 21:26 Lopressor - PO 25 mg BID JUNIOR Administration Multi-Ingredient Lotion 1 applic 03/23/17 14:18 Eucerin (Large Jar) - TP DAILY PRN DRY SKIN Multi-Ingredient Ointment 1 applic 03/23/17 22:00 04/01/17 21:27 Zinc Oxide TP 1 applic BID JUNIOR Administration Multivitamins/Minerals/Vitamin C 1 tab 03/24/17 10:00 04/01/17 10:00 Tab-A-Vit - PO 1 tab DAILY JUNIOR Administration Nicotine 14 mg 03/23/17 15:00 04/01/17 10:01 Nicoderm Patch - TD 14 mg DAILY JUNIOR Administration Nystatin 1 applic 03/23/17 22:00 04/01/17 21:27 Nystop Powder - TP 1 applic BID JUNIOR Administration Ondansetron HCl 8 mg 03/23/17 14:18 03/30/17 09:47 Zofran Odt - SL 8 mg Q8H PRN Administration NAUSEA AND/OR VOMITING Quetiapine Fumarate 300 mg 03/23/17 20:00 04/01/17 21:24 Seroquel Xr - PO 300 mg HS@2000 JUNIOR Administration Ranitidine HCl 150 mg 03/24/17 10:00 04/01/17 10:00 Zantac - PO 150 mg DAILY JUNIOR Administration Sertraline HCl 100 mg 03/23/17 22:00 04/01/17 21:26 Zoloft - PO 100 mg BID JUNIOR Administration Sodium Chloride 2 spray 03/23/17 14:18 03/30/17 09:47 [place] Nasal [place] - NS 2 sprays BID PRN Administration NASAL CONGESTION Thiamine HCl 100 mg 03/24/17 10:00 04/01/17 10:00 Vitamin B1 - PO 100 mg DAILY JUNIOR Administration ASSESSMENT/PLAN: 56yo M with PMH of nicotine dependence, Right lung CA, CAD with 2 stents, htn, hld, gout, presented with worsening cough and sputum production and admitted to med-surg for lung resection, 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 # acute intermittent delirium - mental status improved - Librium reduced to 15mg HS - continue Seroquel Xr 300 HS - 1:1 - wrist restraints D/Michael # Laryngeal SCC, s/p laryngectomy with Left anterolateral thigh flap pharyngeal reconstruction on 02/20/17, s/p tracheo-esophageal puncture on 03/23/17 - continue Motrin prn and Neurontin - suction q3-4hrs and prn - O2 prn - plan is to start radiation and chemotherapy (Cisplatin) on Thursday, . # acute hypoxic respiratory failure - resolved, trach sutured in place - continue mucomyst with albuterol nebs # htn - continue Norvasc and Lopressor # CAD s/p 2 stents - continue ASA # gout - continue Allopurinol # nicotine dependence - continue nicoderm patch 14mg # FEN - Fluids: encourage po - Electolytes: continue to monitor. - Nutrition: soft diet # Prophylaxis - DVT ppx with Heparin TID - GI ppx with Zantac - deconditioning ppx with PT and Chest PT Visit type - Emergency Visit Emergency Visit: Yes ED Registration Date: 02/11/17 Care time: The patient presented to the Emergency Department on the above date and was hospitalized for further evaluation of their emergent condition. - New Patient This patient is new to me today: No - Critical Care Critical Care patient: No
[2017-04-02] MEDS: ASPIRIN 81 MG CHEWABLE TABLETS PO SCH (10:50)
[2017-04-02] MEDS: RANITIDINE HCL 150 MG TABLET (FP) PO SCH (10:50)
[2017-04-02] MEDS: MULTIVITAMINS (DAILY MVI) TABLET (FP) PO SCH (10:51)
[2017-04-02] MEDS: SERTRALINE HCL 50 MG TABLET (FP) PO SCH ×2 (10:51→22:16)
[2017-04-02] MEDS: THIAMINE HCL 100 MG TABLET (FP) PO SCH (10:51)
[2017-04-02] MEDS: amLODIPine BESYLATE 10 MG TABLET (FP) PO SCH (10:51)
[2017-04-02] MEDS: METOPROLOL TARTRATE 25 MG TABLET (FP) PO SCH ×2 (10:51→22:15)
[2017-04-02] MEDS: BACITRACIN 15 GM TUBE TOPICAL OINTMENT TP SCH ×2 (10:52→22:16)
[2017-04-02] MEDS: ZINC OXIDE 20% TOPICAL OINTMENT 30 GM TUBE TP SCH ×2 (10:52→22:16)
[2017-04-02] MEDS: FOLIC ACID 1 MG TABLET (FP) PO SCH (10:52)
[2017-04-02] MEDS: ALLOPURINOL 100 MG TABLET (FP) PO SCH (10:52)
[2017-04-02] MEDS: NYSTATIN POWDER 100,000 UNITS/GM - 15 GM TOPICAL POWDER TP SCH ×2 (10:52→22:16)
[2017-04-02] MEDS: NICOTINE 14 MG/24 HOURS TOPICAL PATCH TD SCH (10:53)
--- NOTE | 2017-04-02 13:46 | PN ---
Progress Note (short form) - Note Progress Note: Patient seen and examined Medical Oncology follow-up All the events/consults noted. O/E NAD,ECOG PS1 Neck trach collar on . CV: RRR Lungs: clear bilaterally Abd: soft, NT, ND , PEG in place Thigh: flap looks clean and dry, well healing No decub Last Vital Signs Temp Pulse Resp BP Pulse Ox 98.5 F 73 18 114/73 97 04/02/17 06:00 04/02/17 10:00 04/02/17 10:00 04/02/17 10:00 04/02/17 09:25 CBC, BMP 03/31/17 06:30 03/31/17 06:30 Current Medications Generic Name Dose Route Start Last Admin Trade Name Freq PRN Reason Stop Dose Admin Acetylcysteine 600 mg 03/23/17 22:00 04/02/17 06:10 Mucomyst 20 Oral / Inh Use Only* NEB 600 mg TIDR JUNIOR Administration Albuterol Sulfate 1 amp 03/23/17 14:18 04/02/17 06:10 Ventolin 0.083% Nebulizer Soln - NEB 1 amp Q6H PRN Administration WHEEZING Albuterol Sulfate 1 amp 03/23/17 14:18 03/30/17 14:05 Ventolin 0.5% - NEB 1 amp Q4H PRN Administration SHORT OF BREATH/WHEEZING Allopurinol 100 mg 03/24/17 10:00 04/02/17 10:52 Zyloprim - PO 100 mg DAILY JUNIOR Administration Amlodipine Besylate 10 mg 03/31/17 19:49 04/02/17 10:51 Norvasc - PO 10 mg DAILY JUNIOR Administration Aspirin 81 mg 03/24/17 10:00 04/02/17 10:50 Asa - PO 81 mg DAILY JUNIOR Administration Bacitracin 1 applic 03/23/17 22:00 04/02/17 10:52 Bacitracin - TP 1 applic BID JUNIOR Administration Chlordiazepoxide HCl 15 mg 04/02/17 12:36 Librium - PO HS JUNIOR Folic Acid 1 mg 03/24/17 10:00 04/02/17 10:52 Folic Acid - PO 1 mg DAILY JUNIOR Administration Gabapentin 400 mg 03/23/17 22:00 04/02/17 06:34 Neurontin - PO 400 mg TID JUNIOR Administration Heparin Sodium (Porcine) 5,000 unit 03/23/17 22:00 04/02/17 06:33 Heparin - SQ 5,000 unit TID JUNIOR Administration Ibuprofen 400 mg 03/23/17 14:18 03/28/17 15:25 Motrin - PO 400 mg Q6H PRN Administration PAIN Metoprolol Tartrate 25 mg 03/31/17 19:49 04/02/17 10:51 Lopressor - PO 25 mg BID JUNIOR Administration Multi-Ingredient Lotion 1 applic 03/23/17 14:18 Eucerin (Large Jar) - TP DAILY PRN DRY SKIN Multi-Ingredient Ointment 1 applic 03/23/17 22:00 04/02/17 10:52 Zinc Oxide TP 1 applic BID JUNIOR Administration Multivitamins/Minerals/Vitamin C 1 tab 03/24/17 10:00 04/02/17 10:51 Tab-A-Vit - PO 1 tab DAILY JUNIOR Administration Nicotine 14 mg 03/23/17 15:00 04/02/17 10:53 Nicoderm Patch - TD 14 mg DAILY JUNIOR Administration Nystatin 1 applic 03/23/17 22:00 04/02/17 10:52 Nystop Powder - TP 1 applic BID JUNIOR Administration Ondansetron HCl 8 mg 03/23/17 14:18 03/30/17 09:47 Zofran Odt - SL 8 mg Q8H PRN Administration NAUSEA AND/OR VOMITING Quetiapine Fumarate 300 mg 03/23/17 20:00 04/01/17 21:24 Seroquel Xr - PO 300 mg HS@2000 JUNIOR Administration Ranitidine HCl 150 mg 03/24/17 10:00 04/02/17 10:50 Zantac - PO 150 mg DAILY JUNOIR Administration Sertraline HCl 100 mg 03/23/17 22:00 04/02/17 10:51 Zoloft - PO 100 mg BID JUNIOR Administration Sodium Chloride 2 spray 03/23/17 14:18 03/30/17 09:47 [place] Nasal [place] - NS 2 sprays BID PRN Administration NASAL CONGESTION Thiamine HCl 100 mg 03/24/17 10:00 04/02/17 10:51 Vitamin B1 - PO 100 mg DAILY JUNIOR Administration 56 yo w 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 Patient is awake , alert today. I have discussed the usual logistics of giving concurrent chemotherapy in his stage and type of cancer, and usually for young, good PS patients, recommended chemo is [place] based. Discussed with the patient usual logistics ,r/b/a of cisplatin. AEs not limited to nausea, vomiting, diarrhea, neuropathy, kidney failure, electrolyte disturbances, claudia-toxicity. He agrees to and understands the treatment plan. Weekly cis along with RT Updated 7W, will need transfer . Projected date of chemo is on Saturday 04/07. Labs (Chem, Thyroid, mag , Phos ) prior to chemo continued to participate in PT. In an event after starting the chemotherapy he has a disposition plan, will need to ensure that he has a safe one as his therapy needs to be continued skyler Potter, . RN on 5 and 7.
--- NOTE | 2017-04-02 13:54 | PN ---
Progress Note (short form) - Note Progress Note: PULMONARY RESTING COMFORTABLY SITTER 1:1 VSS/AFEBRILE ANICTERIC/TRACH W O2 COLLAR CLEAR ANTERIOR BREATH SOUNDS S1S2 BS+ SOFT NO EDEMA LABS/MEDS/NOTES/IMAGES REVIEWED 1) -RUL adenocarcinoma - s/p vats wedge resection/right - Dilaudid/Oxycodone for pain - incentive spirometry - O2 prn 2) Supraglottic lesion - s/p laryngoscopy biopsy revealing squamous cell Ca - s/p total laryngectomy and radical neck dissection revealing stage 4b disease - needs adjuvant therapy /will have RT - keep trach in place for now 3) ETOH abuse 4) CAD s/p PCI stents 5) DVT Prophylaxis - Heparin 5,000U SQ BID - sheree Anni MARTINEZ MD
[2017-04-02] MEDS: SODIUM CHLORIDE NASAL SPRAY 44 ML BOTTLE NS PRN (14:52)
--- NOTE | 2017-04-02 17:20 | PN ---
Teaching Attending Note Name of Resident: Gloria Zaldivar ATTENDING PHYSICIAN STATEMENT I saw and evaluated the patient. I reviewed the resident's note and discussed the case with the resident. I agree with the resident's findings and plan as documented. SUBJECTIVE: No fever or chills. has no pain, no agitation over night OBJECTIVE: NAD,awake, cooperative Neck with well healing scar. trach collar on . CV: RRR Lungs: clear bilaterally Ext: R anterior dry thigh wounds Abd: soft, NT, ND , PEG in place ASSESSMENT AND PLAN: 56 y/o gentleman with h/o Nicotine dependence, HTN, CAD s/p Stenting , hyperlipidemia and recently diagnosed R lung adenocarcinoma who presented for pulmonary resection. 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 Cont O2 through trach 2- Acute delirium. improved. - decrease HS librium to 15 mg - cont seroquel 300 xr. 3- Laryngeal SCC s/p larynegectomy, with flap reconstruction - plan for Rtx to start on Thursday - cchemo to start on Thursday as well . - prechemo labs to be obtained - D/W Dr. Obregon again today 4- HTN -cont norvasc and Metoprolol. 5- CAD: aspirin 6- Nicotine dependence : nicotine patch . DVT px with heparin
[2017-04-02] MEDS: chlordiazePOXIDE 5 MG CAPSULE PO SCH (22:15)
[2017-04-03] MEDS: GABAPENTIN 400 MG CAPSULE (FP) PO SCH ×3 (05:22→21:14)
[2017-04-03] MEDS: HEPARIN NA (PORCINE) 5,000 UNITS/ML 1ML VIAL SQ SCH ×3 (05:23→21:02)
[2017-04-03] MEDS: ACETYLCYSTEINE 20% 200MG/ML 4 ML VIAL *FOR ORAL / INH USE ONLY NEB SCH ×3 (06:35→22:10)
[2017-04-03] MEDS: MULTIVITAMINS (DAILY MVI) TABLET (FP) PO SCH (11:29)
[2017-04-03] MEDS: SERTRALINE HCL 50 MG TABLET (FP) PO SCH ×2 (11:29→21:16)
[2017-04-03] MEDS: FOLIC ACID 1 MG TABLET (FP) PO SCH (11:29)
[2017-04-03] MEDS: METOPROLOL TARTRATE 25 MG TABLET (FP) PO SCH ×2 (11:29→21:14)
[2017-04-03] MEDS: ASPIRIN 81 MG CHEWABLE TABLETS PO SCH (11:29)
[2017-04-03] MEDS: THIAMINE HCL 100 MG TABLET (FP) PO SCH (11:29)
[2017-04-03] MEDS: ALLOPURINOL 100 MG TABLET (FP) PO SCH (11:29)
[2017-04-03] MEDS: RANITIDINE HCL 150 MG TABLET (FP) PO SCH (11:29)
[2017-04-03] MEDS: amLODIPine BESYLATE 10 MG TABLET (FP) PO SCH (11:30)
[2017-04-03] MEDS: NICOTINE 14 MG/24 HOURS TOPICAL PATCH TD SCH (11:30)
[2017-04-03] MEDS: BACITRACIN 15 GM TUBE TOPICAL OINTMENT TP SCH ×2 (11:36→21:08)
[2017-04-03] MEDS: NYSTATIN POWDER 100,000 UNITS/GM - 15 GM TOPICAL POWDER TP SCH ×2 (12:06→21:15)
[2017-04-03] MEDS: ZINC OXIDE 20% TOPICAL OINTMENT 30 GM TUBE TP SCH ×2 (12:06→21:15)
--- NOTE | 2017-04-03 14:03 | PN ---
Progress Note (short form) - Note Progress Note: PULMONARY RESTING COMFORTABLY SITTER 1:1 VSS/AFEBRILE ANICTERIC/TRACH W O2 COLLAR CLEAR ANTERIOR BREATH SOUNDS S1S2 BS+ SOFT NO EDEMA LABS/MEDS/NOTES/IMAGES REVIEWED RT TO START ON THURSDAY 1) -RUL adenocarcinoma - s/p vats wedge resection/right - Dilaudid/Oxycodone for pain - incentive spirometry - O2 prn 2) Supraglottic lesion - s/p laryngoscopy biopsy revealing squamous cell Ca - s/p total laryngectomy and radical neck dissection revealing stage 4b disease - needs adjuvant therapy /will have RT - keep trach in place for now 3) ETOH abuse 4) CAD s/p PCI stents 5) DVT Prophylaxis - Heparin 5,000U SQ BID - sheree Anni MARTNIEZ MD
[2017-04-03] MEDS: ALBUTEROL SO4 0.083% IH SOL 2.5 MG/3 ML VIAL.NEB. NEB PRN ×2 (15:30→22:10)
--- NOTE | 2017-04-03 18:33 | PN ---
Teaching Attending Note Name of Resident: Gloria Zaldivar ATTENDING PHYSICIAN STATEMENT I saw and evaluated the patient. I reviewed the resident's note and discussed the case with the resident. I agree with the resident's findings and plan as documented. SUBJECTIVE: No fever or chills, no events over night OBJECTIVE: NAD,awake, cooperative Neck with well healing scar. trach collar on . CV: RRR Lungs: clear bilaterally Ext: R anterior dry thigh wounds Abd: soft, NT, ND, PEG in place ASSESSMENT AND PLAN: 56 y/o gentleman with h/o Nicotine dependence, HTN, CAD s/p Stenting , hyperlipidemia and recently diagnosed R lung adenocarcinoma who presented for pulmonary resection. 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 Cont O2 through trach 2- Acute delirium. improved. - cont decreased dose of librium 15 mg HS - cont seroquel 300 xr. 3- Laryngeal SCC s/p larynegectomy, with flap reconstruction - plan for Rtx to start on Thursday - chemo to start on Thursday as well . - pre-chemo labs to be obtained 4- HTN -cont norvasc and Metoprolol. 5- CAD: aspirin 6- Nicotine dependence : nicotine patch . DVT px with heparin
[2017-04-03] MEDS ORDERED: PT OWN MED DRAWER 7, Y5N ONE (20:42)
[2017-04-03] MEDS: chlordiazePOXIDE 5 MG CAPSULE PO SCH (21:13)
[2017-04-03] MEDS: ONDANSETRON *ODT* 4 MG TABLET SL PRN (21:17)
[2017-04-03] MEDS: SODIUM CHLORIDE NASAL SPRAY 44 ML BOTTLE NS PRN (21:17)
--- NOTE | 2017-04-03 21:46 | PN ---
Physical Exam: SUBJECTIVE: Patient seen and examined. No fever, chills. No events overnight. OBJECTIVE: Vital Signs Period Temp Pulse Resp BP Sys/Clay Pulse Ox Last 24 Hr 97.7 F-98.9 F 73-85 18-18 96-134/53-80 97-99 GENERAL: AAOx3, NAD. NECK: Trachea midline, supple. Trach sutured in place. Neck with well healing scar. LUNGS: Breath sounds equal, clear to auscultation bilaterally, no wheezes, no crackles, no accessory muscle use. HEART: Regular rate and rhythm, S1, S2 without murmur, rub or gallop. ABDOMEN: Soft, nontender, nondistended. G-tube sutured in place. EXTREMITIES: Warm, well-perfused, no edema. Both thigh flap sites C/D/I. Active Medications Generic Name Dose Route Start Last Admin Trade Name Freq PRN Reason Stop Dose Admin Acetylcysteine 600 mg 03/23/17 22:00 04/03/17 15:30 Mucomyst 20 Oral / Inh Use Only* NEB 600 mg TIDR JUNIOR Administration Albuterol Sulfate 1 amp 03/23/17 14:18 04/03/17 15:30 Ventolin 0.083% Nebulizer Soln - NEB 1 amp Q6H PRN Administration WHEEZING Albuterol Sulfate 1 amp 03/23/17 14:18 03/30/17 14:05 Ventolin 0.5% - NEB 1 amp Q4H PRN Administration SHORT OF BREATH/WHEEZING Allopurinol 100 mg 03/24/17 10:00 04/03/17 11:29 Zyloprim - PO 100 mg DAILY JUNIOR Administration Amlodipine Besylate 10 mg 03/31/17 19:49 04/03/17 11:30 Norvasc - PO Not Given DAILY JUNIOR Aspirin 81 mg 03/24/17 10:00 04/03/17 11:29 Asa - PO 81 mg DAILY JUNOIR Administration Bacitracin 1 applic 03/23/17 22:00 04/03/17 21:08 Bacitracin - TP 1 applic BID JUNIOR Administration Chlordiazepoxide HCl 15 mg 04/02/17 12:36 04/03/17 21:13 Librium - PO 15 mg HS JUNIOR Administration Folic Acid 1 mg 03/24/17 10:00 04/03/17 11:29 Folic Acid - PO 1 mg DAILY JUNIOR Administration Gabapentin 400 mg 03/23/17 22:00 04/03/17 21:14 Neurontin - PO 400 mg TID JUNIOR Administration Heparin Sodium (Porcine) 5,000 unit 03/23/17 22:00 04/03/17 21:02 Heparin - SQ 5,000 unit TID JUNIOR Administration Ibuprofen 400 mg 03/23/17 14:18 03/28/17 15:25 Motrin - PO 400 mg Q6H PRN Administration PAIN Metoprolol Tartrate 25 mg 03/31/17 19:49 04/03/17 21:14 Lopressor - PO 25 mg BID JUNIOR Administration Multi-Ingredient Lotion 1 applic 03/23/17 14:18 Eucerin (Large Jar) - TP DAILY PRN DRY SKIN Multi-Ingredient Ointment 1 applic 03/23/17 22:00 04/03/17 21:15 Zinc Oxide TP 1 applic BID JUNIOR Administration Multivitamins/Minerals/Vitamin C 1 tab 03/24/17 10:00 04/03/17 11:29 Tab-A-Vit - PO 1 tab DAILY JUNIOR Administration Nicotine 14 mg 03/23/17 15:00 04/03/17 11:30 Nicoderm Patch - TD 14 mg DAILY JUNIOR Administration Nystatin 1 applic 03/23/17 22:00 04/03/17 21:15 Nystop Powder - TP 1 applic BID JUNIOR Administration Ondansetron HCl 8 mg 03/23/17 14:18 04/03/17 21:17 Zofran Odt - SL 8 mg Q8H PRN Administration NAUSEA AND/OR VOMITING Quetiapine Fumarate 300 mg 03/23/17 20:00 04/03/17 21:01 Seroquel Xr - PO 300 mg HS@2000 JUNIOR Administration Ranitidine HCl 150 mg 03/24/17 10:00 04/03/17 11:29 Zantac - PO 150 mg DAILY JUNIOR Administration Sertraline HCl 100 mg 03/23/17 22:00 04/03/17 21:16 Zoloft - PO 100 mg BID JUNIOR Administration Sodium Chloride 2 spray 03/23/17 14:18 04/03/17 21:17 [place] Nasal [place] - NS 2 sprays BID PRN Administration NASAL CONGESTION Thiamine HCl 100 mg 03/24/17 10:00 04/03/17 11:29 Vitamin B1 - PO 100 mg DAILY JUNIOR Administration ASSESSMENT/PLAN: 56yo M with PMH of nicotine dependence, Right lung CA, CAD with 2 stents, htn, hld, gout, presented with worsening cough and sputum production and admitted to med-surg for lung resection, 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 # acute intermittent delirium - mental status improved - continue reduced dose of Librium 15mg HS - continue Seroquel Xr 300 HS - 1:1 # Laryngeal SCC, s/p laryngectomy with Left anterolateral thigh flap pharyngeal reconstruction on 02/20/17, s/p tracheo-esophageal puncture on 03/23/17 - continue Motrin prn and Neurontin - suction q3-4hrs and prn - O2 prn - plan is to start radiation and chemotherapy (Cisplatin) on Thursday, . # acute hypoxic respiratory failure - resolved, trach sutured in place - continue mucomyst with albuterol nebs # htn - continue Norvasc and Lopressor # CAD s/p 2 stents - continue ASA # gout - continue Allopurinol # nicotine dependence - continue nicoderm patch 14mg # FEN - Fluids: encourage po - Electolytes: continue to monitor. - Nutrition: soft diet # Prophylaxis - DVT ppx with Heparin TID - GI ppx with Zantac - deconditioning ppx with PT and Chest PT Visit type - Emergency Visit Emergency Visit: Yes ED Registration Date: 02/11/17 Care time: The patient presented to the Emergency Department on the above date and was hospitalized for further evaluation of their emergent condition. - New Patient This patient is new to me today: No - Critical Care Critical Care patient: No
--- NOTE | 2017-04-03 22:33 | PN ---
Progress Note (short form) - Note Progress Note: Radiation Oncology RT planning in progress. Discussed with Dr. Duran, pt is candidate for weekly cisplatin, pt agrees. Pending continued stability, will plan to begin postop RT next week. Please call our office ([phone]) on Thursday to confirm date/time of 1st treatment. Treatments will be M-F with exception of holidays. Will need to monitor nutritional status/wt loss etc. Will need G-tube supplementation if unable to maintain calories during tx.
[2017-04-04] MEDS: GABAPENTIN 400 MG CAPSULE (FP) PO SCH ×3 (06:21→23:01)
[2017-04-04] MEDS: HEPARIN NA (PORCINE) 5,000 UNITS/ML 1ML VIAL SQ SCH ×3 (06:21→23:02)
[2017-04-04] MEDS: ACETYLCYSTEINE 20% 200MG/ML 4 ML VIAL *FOR ORAL / INH USE ONLY NEB SCH ×3 (06:30→22:25)
[2017-04-04] MEDS: ALBUTEROL SO4 0.083% IH SOL 2.5 MG/3 ML VIAL.NEB. NEB PRN ×3 (06:30→22:25)
[2017-04-04 08:10] LABS: ANION GAP 5 (8-16); CALCIUM 8.7 mg/dL (8.5-10.1); CO2 30 mmol/L (21-32); CREATININE 1.1 mg/dL (0.7-1.3); GLUCOSE,RANDOM 91 mg/dL (74-106); MAGNESIUM 2.2 mg/dL (1.8-2.4); PHOSPHOROUS 4.7 mg/dL (2.5-4.9)
[2017-04-04 08:18] LABS: THYROID STIMULATING HORMONE 6.63 uIU/ml (0.358-3.74)
[2017-04-04 09:14] LABS: FREE T4 0.75 ng/dl (0.76-1.16)
[2017-04-04] MEDS: SERTRALINE HCL 50 MG TABLET (FP) PO SCH ×2 (09:48→23:01)
[2017-04-04] MEDS: amLODIPine BESYLATE 10 MG TABLET (FP) PO SCH (09:48)
[2017-04-04] MEDS: THIAMINE HCL 100 MG TABLET (FP) PO SCH (09:48)
[2017-04-04] MEDS: RANITIDINE HCL 150 MG TABLET (FP) PO SCH (09:48)
[2017-04-04] MEDS: ALLOPURINOL 100 MG TABLET (FP) PO SCH (09:48)
[2017-04-04] MEDS: ASPIRIN 81 MG CHEWABLE TABLETS PO SCH (09:48)
[2017-04-04] MEDS: FOLIC ACID 1 MG TABLET (FP) PO SCH (09:48)
[2017-04-04] MEDS: BACITRACIN 15 GM TUBE TOPICAL OINTMENT TP SCH ×2 (09:49→23:02)
[2017-04-04] MEDS: MULTIVITAMINS (DAILY MVI) TABLET (FP) PO SCH (09:53)
[2017-04-04] MEDS: METOPROLOL TARTRATE 25 MG TABLET (FP) PO SCH ×2 (09:53→23:02)
[2017-04-04] MEDS: NICOTINE 14 MG/24 HOURS TOPICAL PATCH TD SCH (09:53)
[2017-04-04] MEDS: ZINC OXIDE 20% TOPICAL OINTMENT 30 GM TUBE TP SCH ×2 (10:00→23:02)
[2017-04-04] MEDS: NYSTATIN POWDER 100,000 UNITS/GM - 15 GM TOPICAL POWDER TP SCH ×2 (10:00→23:02)
--- NOTE | 2017-04-04 12:32 | PN ---
Teaching Attending Note Name of Resident: Gloria Zaldivar ATTENDING PHYSICIAN STATEMENT I saw and evaluated the patient. I reviewed the resident's note and discussed the case with the resident. I agree with the resident's findings and plan as documented. SUBJECTIVE: no events over night , feels tired today . OBJECTIVE: NAD,awake, cooperative Neck with well healing scar. trach collar on . CV: RRR Lungs: clear bilaterally Ext: anterior thigh dry wounds Abd: soft, NT, ND, PEG in place ASSESSMENT AND PLAN: 56 y/o gentleman with h/o Nicotine dependence, HTN, CAD s/p Stenting , hyperlipidemia and recently diagnosed R lung adenocarcinoma who presented for pulmonary resection. 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 Cont O2 through trach 2- Acute delirium. improved. - cont decreased dose of librium 15 mg HS - cont seroquel 300 xr. 3- Laryngeal SCC s/p larynegectomy, with flap reconstruction - plan for RTx to start on Thursday - chemo to start on Thursday as well . - pre-chemo labs to be obtained 4- HTN -cont norvasc and Metoprolol. 5- CAD: aspirin 6- Nicotine dependence : nicotine patch . DVT px with heparin
--- NOTE | 2017-04-04 14:03 | CONSULT ---
Consult - text type - Consultation Consultation Note: Patient seen and examined He is under constant supervision on trach collar nursing ereports says he eats and immediately sleeps Medical Oncology follow-up All the events/consults noted. Vital Signs Period Temp Pulse Resp BP Sys/Clay Pulse Ox Last 24 Hr 98.9 F-99.4 F 65-85 18-22 111-118/68-75 97-99 O/E NAD,ECOG PS1 Neck trach collar on . CV: RRR Lungs: clear bilaterally Abd: soft, NT, ND , PEG in place Thigh: flap looks clean and dry, well healing No decub CBC, BMP 03/31/17 06:30 04/04/17 07:25 Active Medications Generic Name Dose Route Start Last Admin Trade Name Freq PRN Reason Stop Dose Admin Acetylcysteine 600 mg 03/23/17 22:00 04/04/17 06:30 Mucomyst 20 Oral / Inh Use Only* NEB 600 mg TIDR JUNIOR Administration Albuterol Sulfate 1 amp 03/23/17 14:18 04/04/17 06:30 Ventolin 0.083% Nebulizer Soln - NEB 1 amp Q6H PRN Administration WHEEZING Albuterol Sulfate 1 amp 03/23/17 14:18 03/30/17 14:05 Ventolin 0.5% - NEB 1 amp Q4H PRN Administration SHORT OF BREATH/WHEEZING Allopurinol 100 mg 03/24/17 10:00 04/04/17 09:48 Zyloprim - PO 100 mg DAILY JUNIOR Administration Amlodipine Besylate 10 mg 03/31/17 19:49 04/04/17 09:48 Norvasc - PO 10 mg DAILY JUNIOR Administration Aspirin 81 mg 03/24/17 10:00 04/04/17 09:48 Asa - PO 81 mg DAILY JUNIOR Administration Bacitracin 1 applic 03/23/17 22:00 04/04/17 09:49 Bacitracin - TP 1 applic BID JUNIOR Administration Chlordiazepoxide HCl 15 mg 04/02/17 12:36 04/03/17 21:13 Librium - PO 15 mg HS JUNIOR Administration Folic Acid 1 mg 03/24/17 10:00 04/04/17 09:48 Folic Acid - PO 1 mg DAILY JUNIOR Administration Gabapentin 400 mg 03/23/17 22:00 04/04/17 06:21 Neurontin - PO 400 mg TID JUNIOR Administration Heparin Sodium (Porcine) 5,000 unit 03/23/17 22:00 04/04/17 06:21 Heparin - SQ 5,000 unit TID JUNIOR Administration Ibuprofen 400 mg 03/23/17 14:18 03/28/17 15:25 Motrin - PO 400 mg Q6H PRN Administration PAIN Metoprolol Tartrate 25 mg 03/31/17 19:49 04/04/17 09:53 Lopressor - PO 25 mg BID JUNIOR Administration Multi-Ingredient Lotion 1 applic 03/23/17 14:18 Eucerin (Large Jar) - TP DAILY PRN DRY SKIN Multi-Ingredient Ointment 1 applic 03/23/17 22:00 04/03/17 21:15 Zinc Oxide TP 1 applic BID JUNIOR Administration Multivitamins/Minerals/Vitamin C 1 tab 03/24/17 10:00 04/04/17 09:53 Tab-A-Vit - PO 1 tab DAILY JUNIOR Administration Nicotine 14 mg 03/23/17 15:00 04/04/17 09:53 Nicoderm Patch - TD 14 mg DAILY JUNIOR Administration Nystatin 1 applic 03/23/17 22:00 04/03/17 21:15 Nystop Powder - TP 1 applic BID JUNIOR Administration Ondansetron HCl 8 mg 03/23/17 14:18 04/03/17 21:17 Zofran Odt - SL 8 mg Q8H PRN Administration NAUSEA AND/OR VOMITING Quetiapine Fumarate 300 mg 03/23/17 20:00 04/03/17 21:01 Seroquel Xr - PO 300 mg HS@2000 JUNIOR Administration Ranitidine HCl 150 mg 03/24/17 10:00 04/04/17 09:48 Zantac - PO 150 mg DAILY JUNIOR Administration Sertraline HCl 100 mg 03/23/17 22:00 04/04/17 09:48 Zoloft - PO 100 mg BID JUNIOR Administration Sodium Chloride 2 spray 03/23/17 14:18 04/03/17 21:17 [place] Nasal [place] - NS 2 sprays BID PRN Administration NASAL CONGESTION Thiamine HCl 100 mg 03/24/17 10:00 04/04/17 09:48 Vitamin B1 - PO 100 mg DAILY JUNIOR Administration 56 yo w 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 a/w chemo RT on ?Thursday
[2017-04-04] MEDS: IBUPROFEN 400 MG TABLET (FP) PO PRN (14:48)
--- NOTE | 2017-04-04 21:13 | PN ---
Physical Exam: SUBJECTIVE: Patient seen and examined. No fever, chills. No events overnight. OBJECTIVE: Vital Signs Period Temp Pulse Resp BP Sys/Clay Pulse Ox Last 24 Hr 97.9 F-99.4 F 65-85 18-22 111-118/68-75 97-99 GENERAL: AAOx3, NAD. NECK: Trachea midline, supple. Trach sutured in place. Neck with well healing scar. LUNGS: Breath sounds equal, clear to auscultation bilaterally, no wheezes, no crackles, no accessory muscle use. HEART: Regular rate and rhythm, S1, S2 without murmur, rub or gallop. ABDOMEN: Soft, nontender, nondistended. G-tube sutured in place. EXTREMITIES: Warm, well-perfused, no edema. Both thigh flap sites C/D/I. Laboratory Results - last 24 hr 04/04/17 04/04/17 07:25 07:25 Sodium 138 Potassium 4.3 Chloride 103 Carbon Dioxide 30 Anion Gap 5 L BUN 17 D Creatinine 1.1 D Random Glucose 91 Calcium 8.7 Phosphorus 4.7 Magnesium 2.2 D TSH 6.63 H Free T4 0.75 L Cancelled Active Medications Generic Name Dose Route Start Last Admin Trade Name Freq PRN Reason Stop Dose Admin Acetylcysteine 600 mg 03/23/17 22:00 04/04/17 14:17 Mucomyst 20 Oral / Inh Use Only* NEB 600 mg TIDR JUNIOR Administration Albuterol Sulfate 1 amp 03/23/17 14:18 04/04/17 14:17 Ventolin 0.083% Nebulizer Soln - NEB 1 amp Q6H PRN Administration WHEEZING Albuterol Sulfate 1 amp 03/23/17 14:18 03/30/17 14:05 Ventolin 0.5% - NEB 1 amp Q4H PRN Administration SHORT OF BREATH/WHEEZING Allopurinol 100 mg 03/24/17 10:00 04/04/17 09:48 Zyloprim - PO 100 mg DAILY JUNIOR Administration Amlodipine Besylate 10 mg 03/31/17 19:49 04/04/17 09:48 Norvasc - PO 10 mg DAILY JUNIOR Administration Aspirin 81 mg 03/24/17 10:00 04/04/17 09:48 Asa - PO 81 mg DAILY JUNIOR Administration Bacitracin 1 applic 03/23/17 22:00 04/04/17 09:49 Bacitracin - TP 1 applic BID JUNIOR Administration Chlordiazepoxide HCl 15 mg 04/02/17 12:36 04/03/17 21:13 Librium - PO 15 mg HS JUNIOR Administration Folic Acid 1 mg 03/24/17 10:00 04/04/17 09:48 Folic Acid - PO 1 mg DAILY JUNIOR Administration Gabapentin 400 mg 03/23/17 22:00 04/04/17 14:40 Neurontin - PO 400 mg TID JUNIOR Administration Heparin Sodium (Porcine) 5,000 unit 03/23/17 22:00 04/04/17 14:40 Heparin - SQ 5,000 unit TID JUNIOR Administration Ibuprofen 400 mg 03/23/17 14:18 04/04/17 14:48 Motrin - PO 400 mg Q6H PRN Administration PAIN Metoprolol Tartrate 25 mg 03/31/17 19:49 04/04/17 09:53 Lopressor - PO 25 mg BID JUNIOR Administration Multi-Ingredient Lotion 1 applic 03/23/17 14:18 Eucerin (Large Jar) - TP DAILY PRN DRY SKIN Multi-Ingredient Ointment 1 applic 03/23/17 22:00 04/04/17 10:00 Zinc Oxide TP 1 applic BID JUNIOR Administration Multivitamins/Minerals/Vitamin C 1 tab 03/24/17 10:00 04/04/17 09:53 Tab-A-Vit - PO 1 tab DAILY JUNIOR Administration Nicotine 14 mg 03/23/17 15:00 04/04/17 09:53 Nicoderm Patch - TD 14 mg DAILY JUNIOR Administration Nystatin 1 applic 03/23/17 22:00 04/04/17 10:00 Nystop Powder - TP 1 applic BID JUNIOR Administration Ondansetron HCl 8 mg 03/23/17 14:18 04/03/17 21:17 Zofran Odt - SL 8 mg Q8H PRN Administration NAUSEA AND/OR VOMITING Quetiapine Fumarate 300 mg 03/23/17 20:00 04/03/17 21:01 Seroquel Xr - PO 300 mg HS@2000 JUNIOR Administration Ranitidine HCl 150 mg 03/24/17 10:00 04/04/17 09:48 Zantac - PO 150 mg DAILY JUNIOR Administration Sertraline HCl 100 mg 03/23/17 22:00 04/04/17 09:48 Zoloft - PO 100 mg BID JUNIOR Administration Sodium Chloride 2 spray 03/23/17 14:18 04/03/17 21:17 [place] Nasal [place] - NS 2 sprays BID PRN Administration NASAL CONGESTION Thiamine HCl 100 mg 03/24/17 10:00 04/04/17 09:48 Vitamin B1 - PO 100 mg DAILY JUNIOR Administration ASSESSMENT/PLAN: 56yo M with PMH of nicotine dependence, Right lung CA, CAD with 2 stents, htn, hld, gout, presented with worsening cough and sputum production and admitted to med-surg for lung resection, 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 # acute intermittent delirium - mental status improved - continue Librium and Seroquel Xr - 1:1 # Laryngeal SCC, s/p laryngectomy with Left anterolateral thigh flap pharyngeal reconstruction on 02/20/17, s/p tracheo-esophageal puncture on 03/23/17 - continue Motrin prn and Neurontin - suction q3-4hrs and prn - O2 prn - plan is to start radiation and chemotherapy (Cisplatin) on Thursday, . # acute hypoxic respiratory failure - resolved, trach sutured in place - continue mucomyst with albuterol nebs # htn - continue Norvasc and Lopressor # CAD s/p 2 stents - continue ASA # gout - continue Allopurinol # nicotine dependence - continue nicoderm patch 14mg # FEN - Fluids: encourage po - Electolytes: continue to monitor. - Nutrition: soft diet # Prophylaxis - DVT ppx with Heparin TID - GI ppx with Zantac - deconditioning ppx with PT and Chest PT Visit type - Emergency Visit Emergency Visit: Yes ED Registration Date: 02/11/17 Care time: The patient presented to the Emergency Department on the above date and was hospitalized for further evaluation of their emergent condition. - New Patient This patient is new to me today: No - Critical Care Critical Care patient: No
[2017-04-04] MEDS: chlordiazePOXIDE 5 MG CAPSULE PO SCH (23:01)
[2017-04-05] MEDS: GABAPENTIN 400 MG CAPSULE (FP) PO SCH ×3 (06:04→23:14)
[2017-04-05] MEDS: HEPARIN NA (PORCINE) 5,000 UNITS/ML 1ML VIAL SQ SCH ×3 (06:06→23:13)
[2017-04-05] MEDS: ALBUTEROL SO4 0.083% IH SOL 2.5 MG/3 ML VIAL.NEB. NEB PRN ×3 (06:40→22:35)
[2017-04-05] MEDS: ACETYLCYSTEINE 20% 200MG/ML 4 ML VIAL *FOR ORAL / INH USE ONLY NEB SCH ×3 (06:40→22:35)
--- NOTE | 2017-04-05 09:05 | PN ---
Progress Note (short form) - Note Progress Note: Patient seen and examined He is under constant supervision on trach collar he is with a 1:1 sitter All the events/consults noted. Vital Signs Period Temp Pulse Resp BP Sys/Clay Pulse Ox Last 24 Hr 97.9 F-98.9 F 65-89 16-63 110-118/64-77 97-97 O/E NAD,ECOG PS1 Neck trach collar on . CV: RRR Lungs: clear bilaterally Abd: soft, NT, ND , PEG in place Thigh: flap looks clean and dry, well healing No decub CBC, BMP 03/31/17 06:30 Current Medications Generic Name Dose Route Start Last Admin Trade Name Freq PRN Reason Stop Dose Admin Acetylcysteine 600 mg 03/23/17 22:00 04/05/17 06:40 Mucomyst 20 Oral / Inh Use Only* NEB 600 mg TIDR JUNIOR Administration Albuterol Sulfate 1 amp 03/23/17 14:18 04/05/17 06:40 Ventolin 0.083% Nebulizer Soln - NEB 1 amp Q6H PRN Administration WHEEZING Albuterol Sulfate 1 amp 03/23/17 14:18 03/30/17 14:05 Ventolin 0.5% - NEB 1 amp Q4H PRN Administration SHORT OF BREATH/WHEEZING Allopurinol 100 mg 03/24/17 10:00 04/04/17 09:48 Zyloprim - PO 100 mg DAILY JUNIOR Administration Amlodipine Besylate 10 mg 03/31/17 19:49 04/04/17 09:48 Norvasc - PO 10 mg DAILY JUNIOR Administration Aspirin 81 mg 03/24/17 10:00 04/04/17 09:48 Asa - PO 81 mg DAILY JUNIOR Administration Bacitracin 1 applic 03/23/17 22:00 04/04/17 23:02 Bacitracin - TP 1 applic BID JUNIOR Administration Chlordiazepoxide HCl 15 mg 04/02/17 12:36 04/04/17 23:01 Librium - PO 15 mg HS JUNIOR Administration Folic Acid 1 mg 03/24/17 10:00 04/04/17 09:48 Folic Acid - PO 1 mg DAILY JUNIOR Administration Gabapentin 400 mg 03/23/17 22:00 04/05/17 06:04 Neurontin - PO 400 mg TID JUNIOR Administration Heparin Sodium (Porcine) 5,000 unit 03/23/17 22:00 04/05/17 06:06 Heparin - SQ 5,000 unit TID JUNIOR Administration Ibuprofen 400 mg 03/23/17 14:18 04/04/17 14:48 Motrin - PO 400 mg Q6H PRN Administration PAIN Metoprolol Tartrate 25 mg 03/31/17 19:49 04/04/17 23:02 Lopressor - PO 25 mg BID JUNIOR Administration Multi-Ingredient Lotion 1 applic 03/23/17 14:18 Eucerin (Large Jar) - TP DAILY PRN DRY SKIN Multi-Ingredient Ointment 1 applic 03/23/17 22:00 04/04/17 23:02 Zinc Oxide TP 1 applic BID JUNIOR Administration Multivitamins/Minerals/Vitamin C 1 tab 03/24/17 10:00 04/04/17 09:53 Tab-A-Vit - PO 1 tab DAILY JUNIOR Administration Nicotine 14 mg 03/23/17 15:00 04/04/17 09:53 Nicoderm Patch - TD 14 mg DAILY JUNIOR Administration Nystatin 1 applic 03/23/17 22:00 04/04/17 23:02 Nystop Powder - TP 1 applic BID JUNIOR Administration Ondansetron HCl 8 mg 03/23/17 14:18 04/03/17 21:17 Zofran Odt - SL 8 mg Q8H PRN Administration NAUSEA AND/OR VOMITING Quetiapine Fumarate 300 mg 03/23/17 20:00 04/04/17 20:02 Seroquel Xr - PO 300 mg HS@2000 JUNIOR Administration Ranitidine HCl 150 mg 03/24/17 10:00 04/04/17 09:48 Zantac - PO 150 mg DAILY JUNIOR Administration Sertraline HCl 100 mg 03/23/17 22:00 04/04/17 23:01 Zoloft - PO 100 mg BID JUNIOR Administration Sodium Chloride 2 spray 03/23/17 14:18 04/03/17 21:17 [place] Nasal [place] - NS 2 sprays BID PRN Administration NASAL CONGESTION Thiamine HCl 100 mg 03/24/17 10:00 04/04/17 09:48 Vitamin B1 - PO 100 mg DAILY JUNIOR Administration 56 yo w 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 a/w chemo RT on ?Thursday Pending CBC and BMP from today
[2017-04-05 09:10] LABS: ANION GAP 6 (8-16); CALCIUM 8.6 mg/dL (8.5-10.1); CO2 29 mmol/L (21-32); GLUCOSE,RANDOM 97 mg/dL (74-106); MAGNESIUM 2.2 mg/dL (1.8-2.4); PHOSPHOROUS 4.6 mg/dL (2.5-4.9)
[2017-04-05] MEDS: MULTIVITAMINS (DAILY MVI) TABLET (FP) PO SCH (09:29)
[2017-04-05] MEDS: METOPROLOL TARTRATE 25 MG TABLET (FP) PO SCH ×2 (09:30→23:13)
[2017-04-05] MEDS: ALLOPURINOL 100 MG TABLET (FP) PO SCH (09:30)
[2017-04-05] MEDS: NYSTATIN POWDER 100,000 UNITS/GM - 15 GM TOPICAL POWDER TP SCH ×2 (09:30→23:11)
[2017-04-05] MEDS: THIAMINE HCL 100 MG TABLET (FP) PO SCH (09:30)
[2017-04-05] MEDS: SERTRALINE HCL 50 MG TABLET (FP) PO SCH ×2 (09:30→23:13)
[2017-04-05] MEDS: ASPIRIN 81 MG CHEWABLE TABLETS PO SCH (09:30)
[2017-04-05] MEDS: amLODIPine BESYLATE 10 MG TABLET (FP) PO SCH (09:30)
[2017-04-05] MEDS: FOLIC ACID 1 MG TABLET (FP) PO SCH (09:30)
[2017-04-05] MEDS: ZINC OXIDE 20% TOPICAL OINTMENT 30 GM TUBE TP SCH ×2 (09:30→23:10)
[2017-04-05] MEDS: NICOTINE 14 MG/24 HOURS TOPICAL PATCH TD SCH (09:30)
[2017-04-05] MEDS: RANITIDINE HCL 150 MG TABLET (FP) PO SCH (09:30)
[2017-04-05] MEDS: BACITRACIN 15 GM TUBE TOPICAL OINTMENT TP SCH ×2 (09:30→23:11)
[2017-04-05] MEDS ORDERED: DOCUSATE NA 100 MG/10 ML UNIT-DOSE CUPS PO PRN (16:52)
[2017-04-05] MEDS ORDERED: POLYETHYLENE GLYCOL 3350 119 GM BTL PO PRN (16:52)
--- NOTE | 2017-04-05 16:54 | PN ---
Progress Note (short form) - Note Progress Note: Subjective: no pain, has constipation Objective: Vital Signs: Last Vital Signs Temp Pulse Resp BP Pulse Ox 98.6 F 69 22 116/67 97 04/05/17 14:14 04/05/17 14:14 04/05/17 14:14 04/05/17 14:14 04/05/17 10:43 Laboratory Results - last 24 hr 04/05/17 07:55 Sodium 140 Potassium 4.0 Chloride 105 Carbon Dioxide 29 Anion Gap 6 L BUN 17 Creatinine 1.0 Random Glucose 97 Calcium 8.6 Phosphorus 4.6 Magnesium 2.2 Physical Exam: NAD,awake, cooperative Neck with well healing scar. trach collar on . CV: RRR Lungs: clear bilaterally Ext: anterior thigh dry wounds Abd: soft, NT, ND, PEG in place ASSESSMENT AND PLAN: 56 y/o gentleman with h/o Nicotine dependence, HTN, CAD s/p Stenting , hyperlipidemia and recently diagnosed R lung adenocarcinoma who presented for pulmonary resection. 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 Cont O2 through trach 2- Acute delirium. improved. - decrease librium to 10 HS - cont seroquel 300 xr. 3- Laryngeal SCC s/p larynegectomy, with flap reconstruction - plan for RTx to start on Thursday - chemo to start on Thursday as well . - pre-chemo labs tomorrow 4- HTN -cont norvasc and Metoprolol. 5- CAD: aspirin 6- Nicotine dependence : nicotine patch . 7- miralax for constipation DVT px with heparin Visit type - Emergency Visit Emergency Visit: Yes ED Registration Date: 02/11/17 Care time: The patient presented to the Emergency Department on the above date and was hospitalized for further evaluation of their emergent condition. - New Patient This patient is new to me today: No - Critical Care Critical Care patient: No
[2017-04-05 19:37] LABS: INR 1.01 (0.82-1.09); PROTHROMBIN TIME (PATIENT) 11.4 SEC (9.98-11.88)
[2017-04-05] MEDS: chlordiazePOXIDE 5 MG CAPSULE PO SCH (23:13)
[2017-04-06] MEDS: GABAPENTIN 400 MG CAPSULE (FP) PO SCH ×3 (06:31→21:01)
[2017-04-06] MEDS: HEPARIN NA (PORCINE) 5,000 UNITS/ML 1ML VIAL SQ SCH ×3 (06:31→21:00)
[2017-04-06] MEDS: ACETYLCYSTEINE 20% 200MG/ML 4 ML VIAL *FOR ORAL / INH USE ONLY NEB SCH ×3 (06:40→22:00)
[2017-04-06] MEDS: ALBUTEROL SO4 0.083% IH SOL 2.5 MG/3 ML VIAL.NEB. NEB PRN ×2 (06:40→14:22)
--- NOTE | 2017-04-06 08:03 | PN ---
Physical Exam: SUBJECTIVE: Patient seen and examined. Mouthing responses, good eye contact. Denies any pain abdominal pain, chest pain, or at trach collar site. 1xBM yesterday. Slept well overnight, no agitation per 1:1 sitter. OBJECTIVE: Vital Signs Period Temp Pulse Resp BP Sys/Clay Pulse Ox Last 24 Hr 97.6 F-98.6 F 69-76 18-22 116-132/56-75 97-97 GENERAL: nad, aaox3 NECK: Trachea midline, supple, trach collar sutured in place, well healing scar LUNGS: CTAB, no wheezes, crackles, or accessory muscle use HEART: rrr, normal s1/s2, no m/r/g, no JVD ABDOMEN: soft, ndnt, PEG sutured in place EXTREMITIES: wwp, no edema, 2+ DP, b/l thigh flap sites c/d/i CBC, BMP 04/06/17 05:30 04/06/17 05:30 Hepatic Panel Direct Bilirubin 0.2 mg/dL (0.0-0.2) 02/11/17 10:24 Total Bilirubin 0.5 mg/dL (0.2-1.0) D 04/06/17 05:30 AST 12 U/L (15-37) L 04/06/17 05:30 ALT 19 U/L (12-78) 04/06/17 05:30 Alkaline Phosphatase 68 U/L (45-117) 04/06/17 05:30 Albumin 3.0 g/dl (3.4-5.0) L 04/06/17 05:30 Active Medications Acetylcysteine (Mucomyst 20 Oral / Inh Use Only*) 600 mg NEB TIDR [facility] Albuterol Sulfate (Ventolin 0.083% Nebulizer Soln -) 1 amp NEB Q6H PRN PRN Reason: WHEEZING Albuterol Sulfate (Ventolin 0.5% -) 1 amp NEB Q4H PRN PRN Reason: SHORT OF BREATH/WHEEZING Allopurinol (Zyloprim -) 100 mg PO DAILY [facility] Amlodipine Besylate (Norvasc -) 10 mg PO DAILY [facility] Aspirin (Asa -) 81 mg PO DAILY [facility] Bacitracin (Bacitracin -) 1 applic TP BID [facility] Chlordiazepoxide HCl (Librium -) 15 mg PO HS [facility] Docusate Sodium (Colace Liquid -) 100 mg PO DAILY PRN PRN Reason: CONSTIPATION Folic Acid (Folic Acid -) 1 mg PO DAILY [facility] Gabapentin (Neurontin -) 400 mg PO TID [facility] Heparin Sodium (Porcine) (Heparin -) 5,000 unit SQ TID [facility] Ibuprofen (Motrin -) 400 mg PO Q6H PRN PRN Reason: PAIN Metoprolol Tartrate (Lopressor -) 25 mg PO BID [facility] Multi-Ingredient Lotion (Eucerin (Large Jar) -) 1 applic TP DAILY PRN PRN Reason: DRY SKIN Multi-Ingredient Ointment (Zinc Oxide) 1 applic TP BID [facility] Multivitamins/Minerals/Vitamin C (Tab-A-Vit -) 1 tab PO DAILY [facility] Nicotine (Nicoderm Patch -) 14 mg TD DAILY [facility] Nystatin (Nystop Powder -) 1 applic TP BID [facility] Ondansetron HCl (Zofran Odt -) 8 mg SL Q8H PRN PRN Reason: NAUSEA AND/OR VOMITING Polyethylene Glycol (Miralax (For Daily Use) -) 17 gm PO DAILY PRN PRN Reason: CONSTIPATION Quetiapine Fumarate (Seroquel Xr -) 300 mg PO HS@2000 [facility] Ranitidine HCl (Zantac -) 150 mg PO DAILY [facility] Sertraline HCl (Zoloft -) 100 mg PO BID [facility] Sodium Chloride ([place] Nasal [place] -) 2 spray NS BID PRN PRN Reason: NASAL CONGESTION Thiamine HCl (Vitamin B1 -) 100 mg PO DAILY [facility] ASSESSMENT/PLAN: 56yo M with PMH of nicotine dependence, CAD (s/p 2x stents), htn, hld, gout, Right lung adenocarcinoma s/p resection, and found to have primary laryngeal SCC s/p pharyngeal flap reconstruction (02/20) and tracheostomy who will be starting chemo and RT tomorrow. #Laryngeal SCC -Cisplatin and RT tomorrow -Monitor labs, signs ototoxicity, neuropathy -IVF preceding and after chemotherapy #Acute intermittent delirium, improving, no agitation last night -Cont Librium, Seroquel, and 1:1 sitter #Acute hypoxic respiratory failure, resolved -Trach collar sutured in place, 50% FiO2, cont sunctioning PRN -Mucomyst with albuterol nebs #HTN - Norvasc and Lopressor #CAD - ASA #Gout - Allopurinol #Nicotine dependence - nicoderm patch 14mg #FEN: Hold IVFs/ lytes wnl / Soft diet #PPX -DVT - Heparin TID -GI - Zantac -PT and Chest PT for deconditioning DISPO: transfer to for chemo/radiation therapy DNR/DNI d/w Dr. Rafiq Mc MD PGY1- Internal Medicine Visit type - Emergency Visit Emergency Visit: No - New Patient This patient is new to me today: Yes Date on this admission: 04/06/17 - Critical Care Critical Care patient: No
[2017-04-06 08:11] LABS: BASO % 0.7 % (0-2.0); EOS % 6.9 % (0-4.5); MCH 29.9 pg (25.7-33.7); MCHC 32.8 g/dl (32.0-35.9); MEAN CELL VOLUME 91.2 fl (80-96); MEAN PLT VOLUME 9.6 fl (7.5-11.1); NEUT % 54.2 % (42.8-82.8); PLATELET COUNT 240 K/MM3 (134-434); RDW 14.1 % (11.9-15.9); WHITE BLOOD COUNT 8.6 K/mm3 (4.0-10.0)
[2017-04-06 08:41] LABS: ANION GAP 10 (8-16); CALCIUM 8.5 mg/dL (8.5-10.1); CO2 26 mmol/L (21-32); GLUCOSE,RANDOM 80 mg/dL (74-106); MAGNESIUM 2.2 mg/dL (1.8-2.4)
[2017-04-06 08:44] LABS: ALK PHOS 68 U/L (45-117); BILIRUBIN,TOTAL 0.5 mg/dL (0.2-1.0); LDH 135 U/L (87-241); PHOSPHOROUS 4.4 mg/dL (2.5-4.9); SGOT/AST 12 U/L (15-37); SGPT/ALT 19 U/L (12-78); TOT PROT 7.3 g/dl (6.4-8.2)
--- NOTE | 2017-04-06 10:20 | PN ---
Progress Note (short form) - Note Progress Note: Patient seen and examined. Awake and alert with normal interactions. Reports eating food, walking down the hallway (though "wobbly"), no complaints. Neck wounds well-healed, trach intact, g-tube intact. Labs unremarkable. Appears improved. According to the nurse he becomes somewhat confused and agitated as the day wears on requiring one to one. To begin chemotherapy and radiation to prevent recurrence of head and neck cancer. Continue PT. No speech training at this point. If possible to obtain an electrolarynx that would be great.
[2017-04-06] MEDS: BACITRACIN 15 GM TUBE TOPICAL OINTMENT TP SCH ×2 (10:35→20:59)
[2017-04-06] MEDS: MULTIVITAMINS (DAILY MVI) TABLET (FP) PO SCH (11:15)
[2017-04-06] MEDS: NICOTINE 14 MG/24 HOURS TOPICAL PATCH TD SCH (11:15)
[2017-04-06] MEDS: NYSTATIN POWDER 100,000 UNITS/GM - 15 GM TOPICAL POWDER TP SCH ×2 (11:15→21:01)
[2017-04-06] MEDS: ZINC OXIDE 20% TOPICAL OINTMENT 30 GM TUBE TP SCH ×2 (11:15→21:01)
[2017-04-06] MEDS: ALLOPURINOL 100 MG TABLET (FP) PO SCH (11:15)
[2017-04-06] MEDS: FOLIC ACID 1 MG TABLET (FP) PO SCH (11:15)
[2017-04-06] MEDS: ASPIRIN 81 MG CHEWABLE TABLETS PO SCH (11:15)
[2017-04-06] MEDS: SERTRALINE HCL 50 MG TABLET (FP) PO SCH ×2 (11:15→21:00)
[2017-04-06] MEDS: METOPROLOL TARTRATE 25 MG TABLET (FP) PO SCH ×2 (11:15→21:00)
[2017-04-06] MEDS: THIAMINE HCL 100 MG TABLET (FP) PO SCH (11:15)
[2017-04-06] MEDS: RANITIDINE HCL 150 MG TABLET (FP) PO SCH (11:15)
[2017-04-06] MEDS: amLODIPine BESYLATE 10 MG TABLET (FP) PO SCH (11:15)
[2017-04-06] MEDS ORDERED: PT OWN MED DRAWER 7, Y5N ONE ×4 (11:25→20:57)
--- NOTE | 2017-04-06 11:41 | PN ---
Progress Note, [employer] - Note Progress Note: Case reviewed with Dr. Lucero. Pt is presently communicating with writing, communication board, cues to mouth words slowly, with increased articulatory precision. Plan is for obtaining electrolarynx once in rehab and TEP training when tracheostomy tube can be removed, without o2 desaturation.
--- NOTE | 2017-04-06 14:59 | PN ---
Progress Note, Physician History of Present Illness: PULMONARY ALERT,NAD,SITTING UP IN BED,-RESP DISTRESS - Current Medication List Current Medications: Active Medications Acetylcysteine (Mucomyst 20 Oral / Inh Use Only*) 600 mg NEB TIDR [facility] Last Admin: 04/06/17 14:22 Dose: 600 mg Albuterol Sulfate (Ventolin 0.083% Nebulizer Soln -) 1 amp NEB Q6H PRN PRN Reason: WHEEZING Last Admin: 04/06/17 14:22 Dose: 1 amp Albuterol Sulfate (Ventolin 0.5% -) 1 amp NEB Q4H PRN PRN Reason: SHORT OF BREATH/WHEEZING Last Admin: 03/30/17 14:05 Dose: 1 amp Allopurinol (Zyloprim -) 100 mg PO DAILY [facility] Last Admin: 04/06/17 11:15 Dose: 100 mg Amlodipine Besylate (Norvasc -) 10 mg PO DAILY [facility] Last Admin: 04/06/17 11:15 Dose: 10 mg Aspirin (Asa -) 81 mg PO DAILY [facility] Last Admin: 04/06/17 11:15 Dose: 81 mg Bacitracin (Bacitracin -) 1 applic TP BID [facility] Last Admin: 04/05/17 23:11 Dose: 1 applic Chlordiazepoxide HCl (Librium -) 15 mg PO HS [facility] Last Admin: 04/05/17 23:13 Dose: 15 mg Docusate Sodium (Colace Liquid -) 100 mg PO DAILY PRN PRN Reason: CONSTIPATION Folic Acid (Folic Acid -) 1 mg PO DAILY [facility] Last Admin: 04/06/17 11:15 Dose: 1 mg Gabapentin (Neurontin -) 400 mg PO TID [facility] Last Admin: 04/06/17 06:31 Dose: 400 mg Heparin Sodium (Porcine) (Heparin -) 5,000 unit SQ TID [facility] Last Admin: 04/06/17 06:31 Dose: 5,000 unit Ibuprofen (Motrin -) 400 mg PO Q6H PRN PRN Reason: PAIN Last Admin: 04/04/17 14:48 Dose: 400 mg Metoprolol Tartrate (Lopressor -) 25 mg PO BID [facility] Last Admin: 04/06/17 11:15 Dose: 25 mg Multi-Ingredient Lotion (Eucerin (Large Jar) -) 1 applic TP DAILY PRN PRN Reason: DRY SKIN Multi-Ingredient Ointment (Zinc Oxide) 1 applic TP BID [facility] Last Admin: 04/06/17 11:15 Dose: 1 applic Multivitamins/Minerals/Vitamin C (Tab-A-Vit -) 1 tab PO DAILY [facility] Last Admin: 04/06/17 11:15 Dose: 1 tab Nicotine (Nicoderm Patch -) 14 mg TD DAILY [facility] Last Admin: 04/06/17 11:15 Dose: 14 mg Nystatin (Nystop Powder -) 1 applic TP BID [facility] Last Admin: 04/06/17 11:15 Dose: 1 applic Ondansetron HCl (Zofran Odt -) 8 mg SL Q8H PRN PRN Reason: NAUSEA AND/OR VOMITING Last Admin: 04/03/17 21:17 Dose: 8 mg Polyethylene Glycol (Miralax (For Daily Use) -) 17 gm PO DAILY PRN PRN Reason: CONSTIPATION Quetiapine Fumarate (Seroquel Xr -) 300 mg PO HS@2000 [facility] Last Admin: 04/05/17 21:00 Dose: 300 mg Ranitidine HCl (Zantac -) 150 mg PO DAILY [facility] Last Admin: 04/06/17 11:15 Dose: 150 mg Sertraline HCl (Zoloft -) 100 mg PO BID [facility] Last Admin: 04/06/17 11:15 Dose: 100 mg Sodium Chloride ([place] Nasal [place] -) 2 spray NS BID PRN PRN Reason: NASAL CONGESTION Last Admin: 04/03/17 21:17 Dose: 2 sprays Thiamine HCl (Vitamin B1 -) 100 mg PO DAILY [facility] Last Admin: 04/06/17 11:15 Dose: 100 mg - Objective Vital Signs: Vital Signs Temperature 98.7 F 04/06/17 10:00 Pulse Rate 82 04/06/17 10:45 Respiratory Rate 19 04/06/17 10:00 Blood Pressure 127/74 04/06/17 10:00 O2 Sat by Pulse Oximetry (%) 98 04/06/17 10:45 Constitutional: Yes: Well Nourished, Calm Eyes: Yes: WNL HENT: Yes: WNL Neck: Yes: Supple (TRACH) Cardiovascular: Yes: Regular Rate and Rhythm, S1, S2 Respiratory: Yes: Rhonchi (SCATTERED SRIDHAR RHONCHI) Gastrointestinal: Yes: Normal Bowel Sounds, Soft Extremities: Yes: WNL Edema: No Labs: CBC, BMP 04/06/17 05:30 04/06/17 05:30 INR, PTT INR 1.01 (0.82-1.09) 04/05/17 18:58 Problem List - Problems (1) Alcohol dependence Code(s): F10.20 - ALCOHOL DEPENDENCE, UNCOMPLICATED Qualifiers: Substance use status: with intoxication Complication of substance-induced condition: with unspecified complication Qualified Code(s): F10.229 - Alcohol dependence with intoxication, unspecified (2) Alcohol intoxication Code(s): F10.929 - ALCOHOL USE, UNSPECIFIED WITH INTOXICATION, UNSPECIFIED Qualifiers: Complication of substance-induced condition: with unspecified complication Qualified Code(s): F10.929 - Alcohol use, unspecified with intoxication, unspecified (3) Cough Code(s): R05 - COUGH (5) Lung cancer Code(s): C34.90 - MALIGNANT NEOPLASM OF UNSP PART OF UNSP BRONCHUS OR LUNG Qualifiers: Laterality: unspecified laterality Lung location: overlapping sites Qualified Code(s): C34.80 - Malignant neoplasm of overlapping sites of unspecified bronchus and lung (6) Metastatic disease Code(s): C79.9 - SECONDARY MALIGNANT NEOPLASM OF UNSPECIFIED SITE (7) Nicotine dependence Code(s): F17.200 - NICOTINE DEPENDENCE, UNSPECIFIED, UNCOMPLICATED (8) Laryngeal squamous cell carcinoma Code(s): C32.9 - MALIGNANT NEOPLASM OF LARYNX, UNSPECIFIED (9) COPD (chronic obstructive pulmonary disease) Code(s): J44.9 - CHRONIC OBSTRUCTIVE PULMONARY DISEASE, UNSPECIFIED Qualifiers: COPD type: unspecified COPD Qualified Code(s): J44.9 - Chronic obstructive pulmonary disease, unspecified Assessment/Plan ASSESSMENT AND PLAN: NSCLC - Adenocarcinoma s/p R VATS/Wedge Resection/CT placement now removed 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
[2017-04-06] MEDS ORDERED: POLYETHYLENE GLYCOL 3350 119 GM BTL PO PRN ×2 (15:30→22:50)
--- NOTE | 2017-04-06 18:47 | PN ---
Teaching Attending Note Name of Resident: Reyna Mc ATTENDING PHYSICIAN STATEMENT I saw and evaluated the patient. I reviewed the resident's note and discussed the case with the resident. I agree with the resident's findings and plan as documented. SUBJECTIVE: no pain or fever . no events over night OBJECTIVE: NAD,awake, cooperative Neck with well healing scar. trach collar on . CV: RRR Lungs: clear bilaterally Ext: anterior thigh dry wounds Abd: soft, NT, ND, PEG in place ASSESSMENT AND PLAN: 56 y/o gentleman with h/o Nicotine dependence, HTN, CAD s/p Stenting , hyperlipidemia and recently diagnosed R lung adenocarcinoma who presented for pulmonary resection. 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 Cont O2 through trach 2- Acute delirium. improved. - cont librium at 10 qHS in a trial to wean off - cont seroquel 300 xr. 3- Laryngeal SCC s/p larynegectomy, with flap reconstruction - plan for RTx and chemo tomorrow - labs reviewed. - to receive IVF before and after each chemo treatment - pending transfer to [facility] 4- HTN -cont norvasc and Metoprolol. 5- CAD: aspirin 6- Nicotine dependence : nicotine patch . 7- miralax for constipation DVT px with heparin Tx to [facility]
[2017-04-06] MEDS: chlordiazePOXIDE 5 MG CAPSULE PO SCH (21:01)
[2017-04-06] MEDS ORDERED: SODIUM CHLORIDE NASAL SPRAY 44 ML BOTTLE NS PRN (22:50)
[2017-04-06] MEDS ORDERED: ONDANSETRON *ODT* 4 MG TABLET SL PRN (22:50)
[2017-04-06] MEDS ORDERED: ALBUTEROL SO4 0.5 % INH SOLN 2.5 MG/0.5 ML VIAL.NEB. NEB PRN (22:50)
[2017-04-06] MEDS ORDERED: DOCUSATE NA 100 MG/10 ML UNIT-DOSE CUPS PO PRN (22:50)
[2017-04-06] MEDS ORDERED: MINERAL OIL/PETROLAT/WATER TOPICAL CREAM 454 GM JAR TP PRN (22:50)
[2017-04-06] MEDS ORDERED: IBUPROFEN 400 MG TABLET (FP) PO PRN (22:50)
[2017-04-07] MEDS: ACETYLCYSTEINE 20% 200MG/ML 4 ML VIAL *FOR ORAL / INH USE ONLY NEB SCH ×3 (05:04→22:50)
[2017-04-07] MEDS: ALBUTEROL SO4 0.083% IH SOL 2.5 MG/3 ML VIAL.NEB. NEB PRN ×3 (05:05→22:50)
[2017-04-07] MEDS: GABAPENTIN 400 MG CAPSULE (FP) PO SCH ×3 (06:46→21:54)
[2017-04-07] MEDS: HEPARIN NA (PORCINE) 5,000 UNITS/ML 1ML VIAL SQ SCH ×3 (06:46→21:51)
[2017-04-07 08:50] LABS: LDH 112 U/L (87-241)
--- NOTE | 2017-04-07 09:03 | PN ---
Physical Exam: SUBJECTIVE: Patient seen and examined. Offers no complaints. Overnight sitter reports patient tugged at trach collar a few times overnight, but was easily re- directed. OBJECTIVE: Vital Signs Period Temp Pulse Resp BP Sys/Clay Pulse Ox Last 24 Hr 97.4 F-99.1 F 66-85 18-19 98-127/59-74 98-98 GENERAL: nad, aaox3 NECK: Trachea midline, supple, trach collar sutured in place, well healing scar LUNGS: CTAB, no wheezes, crackles, or accessory muscle use HEART: rrr, normal s1/s2, no m/r/g, no JVD ABDOMEN: soft, ndnt, PEG sutured in place EXTREMITIES: wwp, no edema, 2+ DP, b/l thigh flap sites c/d/i CBC, BMP 04/07/17 06:00 04/07/17 06:00 Hepatic Panel Total Bilirubin 0.3 mg/dL (0.2-1.0) D 04/07/17 06:00 AST 10 U/L (15-37) L 04/07/17 06:00 ALT 18 U/L (12-78) 04/07/17 06:00 Alkaline Phosphatase 65 U/L (45-117) 04/07/17 06:00 Albumin 3.0 g/dl (3.4-5.0) L 04/07/17 06:00 Active Medications Acetylcysteine (Mucomyst 20 Oral / Inh Use Only*) 600 mg NEB TIDR [facility] Last Admin: 04/07/17 14:37 Dose: 600 mg Albuterol Sulfate (Ventolin 0.083% Nebulizer Soln -) 1 amp NEB Q6H PRN PRN Reason: WHEEZING Last Admin: 04/07/17 14:37 Dose: 1 amp Albuterol Sulfate (Ventolin 0.5% -) 1 amp NEB Q4H PRN PRN Reason: SHORT OF BREATH/WHEEZING Last Admin: 04/06/17 23:30 Dose: 1 amp Allopurinol (Zyloprim -) 100 mg PO DAILY [facility] Last Admin: 04/07/17 10:01 Dose: 100 mg Amlodipine Besylate (Norvasc -) 10 mg PO DAILY [facility] Last Admin: 04/07/17 10:00 Dose: 10 mg Aspirin (Asa -) 81 mg PO DAILY [facility] Last Admin: 04/07/17 10:01 Dose: 81 mg Bacitracin (Bacitracin -) 1 applic TP BID [facility] Last Admin: 04/07/17 21:51 Dose: 1 applic Chlordiazepoxide HCl (Librium -) 15 mg PO HS [facility] Last Admin: 04/07/17 21:51 Dose: 15 mg Docusate Sodium (Colace Liquid -) 100 mg PO DAILY PRN PRN Reason: CONSTIPATION Folic Acid (Folic Acid -) 1 mg PO DAILY [facility] Last Admin: 04/07/17 10:01 Dose: 1 mg Gabapentin (Neurontin -) 400 mg PO TID [facility] Last Admin: 04/07/17 21:54 Dose: 400 mg Heparin Sodium (Porcine) (Heparin -) 5,000 unit SQ TID [facility] Last Admin: 04/07/17 21:51 Dose: 5,000 unit Ibuprofen (Motrin -) 400 mg PO Q6H PRN PRN Reason: PAIN Metoprolol Tartrate (Lopressor -) 25 mg PO BID [facility] Last Admin: 04/07/17 21:52 Dose: Not Given Multi-Ingredient Lotion (Eucerin (Large Jar) -) 1 applic TP DAILY PRN PRN Reason: DRY SKIN Multi-Ingredient Ointment (Zinc Oxide) 1 applic TP BID [facility] Last Admin: 04/07/17 21:54 Dose: 1 applic Multivitamins/Minerals/Vitamin C (Tab-A-Vit -) 1 tab PO DAILY [facility] Last Admin: 04/07/17 10:00 Dose: 1 tab Nicotine (Nicoderm Patch -) 14 mg TD DAILY [facility] Last Admin: 04/07/17 10:01 Dose: 14 mg Nystatin (Nystop Powder -) 1 applic TP BID [facility] Last Admin: 04/07/17 21:54 Dose: 1 applic Ondansetron HCl (Zofran Odt -) 8 mg SL Q8H PRN PRN Reason: NAUSEA AND/OR VOMITING Polyethylene Glycol (Miralax (For Daily Use) -) 17 gm PO DAILY PRN PRN Reason: CONSTIPATION Quetiapine Fumarate (Seroquel Xr -) 300 mg PO HS@2000 [facility] Last Admin: 04/07/17 20:15 Dose: 300 mg Ranitidine HCl (Zantac -) 150 mg PO DAILY [facility] Last Admin: 04/07/17 10:01 Dose: 150 mg Sertraline HCl (Zoloft -) 100 mg PO BID [facility] Last Admin: 04/07/17 21:53 Dose: 100 mg Sodium Chloride ([place] Nasal [place] -) 2 spray NS BID PRN PRN Reason: NASAL CONGESTION Last Admin: 04/07/17 21:54 Dose: 2 spray Thiamine HCl (Vitamin B1 -) 100 mg PO DAILY [facility] Last Admin: 04/07/17 10:00 Dose: 100 mg ASSESSMENT/PLAN: 56yo M with PMH of nicotine dependence, CAD (s/p 2x stents), htn, hld, gout, Right lung adenocarcinoma s/p resection, and 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 First dose chemotherapy today. #Laryngeal SCC -Received 1st dose of Cisplatin today with 1st round RT tomorrow -Monitor labs, signs ototoxicity, neuropathy -IVF preceding and after chemotherapy #Acute intermittent delirium, improving, no agitation last night -Cont Librium 10mg HS, Seroquel 300mg, and 1:1 sitter #Acute hypoxic respiratory failure, resolved -Trach collar sutured in place, 50% FiO2, cont sunctioning PRN -Mucomyst with albuterol nebs #? Hypothyroidism, elevated TSH/low free T4 -Endocrine consulted. Appreciate input whether neck RTx will effect thyroid due to anatomical proximity #HTN - Norvasc and Lopressor #CAD - ASA #Gout - Allopurinol #Nicotine dependence - nicoderm patch 14mg #FEN: Hold IVFs/ lytes wnl / Soft diet #PPX -DVT - Heparin TID -GI - Zantac -PT and Chest PT for deconditioning DISPO: continue 7W for chemo/radiation therapy DNR/DNI d/w Dr. Rafiq Mc MD PGY1- Internal Medicine Visit type - Emergency Visit Emergency Visit: No - New Patient This patient is new to me today: No - Critical Care Critical Care patient: No
[2017-04-07 09:41] LABS: BASO % 0.7 % (0-2.0); EOS % 6.7 % (0-4.5); MCH 29.6 pg (25.7-33.7); MCHC 32.4 g/dl (32.0-35.9); MEAN CELL VOLUME 91.3 fl (80-96); MEAN PLT VOLUME 9.8 fl (7.5-11.1); NEUT % 51.9 % (42.8-82.8); PLATELET COUNT 235 K/MM3 (134-434); RDW 13.9 % (11.9-15.9); WHITE BLOOD COUNT 7.3 K/mm3 (4.0-10.0)
[2017-04-07] MEDS ORDERED: PT OWN MED DRAWER 7, Y5N ONE (09:58)
[2017-04-07] MEDS: BACITRACIN 15 GM TUBE TOPICAL OINTMENT TP SCH ×2 (09:59→21:51)
[2017-04-07] MEDS: MULTIVITAMINS (DAILY MVI) TABLET (FP) PO SCH (10:00)
[2017-04-07] MEDS: amLODIPine BESYLATE 10 MG TABLET (FP) PO SCH (10:00)
[2017-04-07] MEDS: THIAMINE HCL 100 MG TABLET (FP) PO SCH (10:00)
[2017-04-07] MEDS: FOLIC ACID 1 MG TABLET (FP) PO SCH (10:01)
[2017-04-07] MEDS: ASPIRIN 81 MG CHEWABLE TABLETS PO SCH (10:01)
[2017-04-07] MEDS: ALLOPURINOL 100 MG TABLET (FP) PO SCH (10:01)
[2017-04-07] MEDS: NICOTINE 14 MG/24 HOURS TOPICAL PATCH TD SCH (10:01)
[2017-04-07] MEDS: NYSTATIN POWDER 100,000 UNITS/GM - 15 GM TOPICAL POWDER TP SCH ×2 (10:01→21:54)
[2017-04-07] MEDS: SERTRALINE HCL 50 MG TABLET (FP) PO SCH ×2 (10:01→21:53)
[2017-04-07] MEDS: METOPROLOL TARTRATE 25 MG TABLET (FP) PO SCH ×2 (10:01→21:52)
[2017-04-07] MEDS: RANITIDINE HCL 150 MG TABLET (FP) PO SCH (10:01)
[2017-04-07] MEDS: ZINC OXIDE 20% TOPICAL OINTMENT 30 GM TUBE TP SCH ×2 (10:02→21:54)
[2017-04-07] MEDS ORDERED: SODIUM CHLORIDE 0.9%/KCL 20 MEQ/1,000 ML INFUS.BAG IV ONE (10:15)
--- NOTE | 2017-04-07 10:20 | PN ---
Progress Note (short form) - Note Progress Note: Patient seen and examined seen and examined Transferred to [facility]. He feels OK. Denies any complains. O/E NAD,ECOG PS1 Neck trach collar on . CV: RRR Lungs: clear bilaterally Abd: soft, NT, ND , PEG in place Thigh: flap looks clean and dry, well healing No decub Last Vital Signs Temp Pulse Resp BP Pulse Ox 97.4 F L 66 18 108/67 98 04/07/17 05:00 04/07/17 05:00 04/07/17 05:00 04/07/17 05:00 04/06/17 21:00 Current Medications Generic Name Dose Route Start Last Admin Trade Name Freq PRN Reason Stop Dose Admin Acetylcysteine 600 mg 04/07/17 06:00 04/07/17 05:04 Mucomyst 20 Oral / Inh Use Only* NEB 600 mg TIDR [facility]UNIOR Administration Albuterol Sulfate 1 amp 04/06/17 22:50 04/07/17 05:05 Ventolin 0.083% Nebulizer Soln - NEB 1 amp Q6H PRN Administration WHEEZING Albuterol Sulfate 1 amp 04/06/17 22:50 04/06/17 23:30 Ventolin 0.5% - NEB 1 amp Q4H PRN Administration SHORT OF BREATH/WHEEZING Allopurinol 100 mg 04/07/17 10:00 04/07/17 10:01 Zyloprim - PO 100 mg DAILY [facility] Administration Amlodipine Besylate 10 mg 04/07/17 10:00 04/07/17 10:00 Norvasc - PO 10 mg DAILY [facility] Administration Aspirin 81 mg 04/07/17 10:00 04/07/17 10:01 Asa - PO 81 mg DAILY [facility] Administration Bacitracin 1 applic 04/07/17 10:00 04/07/17 09:59 Bacitracin - TP 1 applic BID [facility] Administration Chlordiazepoxide HCl 15 mg 04/07/17 22:00 Librium - PO HS JUNIOR Docusate Sodium 100 mg 04/06/17 22:50 Colace Liquid - PO DAILY PRN CONSTIPATION Folic Acid 1 mg 04/07/17 10:00 04/07/17 10:01 Folic Acid - PO 1 mg DAILY [facility] Administration Gabapentin 400 mg 04/07/17 06:00 04/07/17 06:46 Neurontin - PO 400 mg TID [facility] Administration Heparin Sodium (Porcine) 5,000 unit 04/07/17 06:00 04/07/17 06:46 Heparin - SQ 5,000 unit TID [facility] Administration Potassium Chloride/Sodium Chloride 20 meq in 1,000 mls @ 1,000 mls/hr 10:15 Ns+20 Meq Kcl - IV 04/07/17 11:14 ONCE ONE Dexamethasone Sodium Phosphate 109 mls @ 218 mls/hr 04/07/17 10:45 20 mg/ Ondansetron HCl 8 mg/ IVPB 04/07/17 11:14 Sodium Chloride ONCE ONE Fosaprepitant 150 mg/ Sodium 150 mls @ 300 mls/hr 04/07/17 10:45 Chloride IVPB 04/07/17 11:14 ONCE ONE Cisplatin 80 mg/ Sodium 580 mls @ 193.333 mls/hr 04/07/17 11:15 Chloride IV 04/07/17 14:14 ONCE ONE Sodium Chloride 1,000 mls @ 1,000 mls/hr 04/07/17 12:15 Normal Saline - IV 04/07/17 13:14 ONCE ONE Ibuprofen 400 mg 04/06/17 22:50 Motrin - PO Q6H PRN PAIN Metoprolol Tartrate 25 mg 04/07/17 10:00 04/07/17 10:01 Lopressor - PO 25 mg BID [facility] Administration Multi-Ingredient Lotion 1 applic 04/06/17 22:50 Eucerin (Large Jar) - TP DAILY PRN DRY SKIN Multi-Ingredient Ointment 1 applic 04/07/17 10:00 04/07/17 10:02 Zinc Oxide TP 1 applic BID [facility] Administration Multivitamins/Minerals/Vitamin C 1 tab 04/07/17 10:00 04/07/17 10:00 Tab-A-Vit - PO 1 tab DAILY [facility] Administration Nicotine 14 mg 04/07/17 10:00 04/07/17 10:01 Nicoderm Patch - TD 14 mg DAILY [facility] Administration Nystatin 1 applic 04/07/17 10:00 04/07/17 10:01 Nystop Powder - TP 1 applic BID [facility] Administration Ondansetron HCl 8 mg 04/06/17 22:50 Zofran Odt - SL Q8H PRN NAUSEA AND/OR VOMITING Polyethylene Glycol 17 gm 04/06/17 22:50 Miralax (For Daily Use) - PO DAILY PRN CONSTIPATION Quetiapine Fumarate 300 mg 04/07/17 20:00 Seroquel Xr - PO HS@2000 [facility] Ranitidine HCl 150 mg 04/07/17 10:00 04/07/17 10:01 Zantac - PO 150 mg DAILY [facility] Administration Sertraline HCl 100 mg 04/07/17 10:00 04/07/17 10:01 Zoloft - PO 100 mg BID [facility] Administration Sodium Chloride 2 spray 04/06/17 22:50 [place] Nasal [place] - NS BID PRN NASAL CONGESTION Thiamine HCl 100 mg 04/07/17 10:00 04/07/17 10:00 Vitamin B1 - PO 100 mg DAILY [facility] Administration 56 yo w stage I adenocarcinoma of RUL s/p VATS/wedge rxn w neg margins ( no adjuvant Treatment indicated ) 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 for cisplatin week one today for RT tomorrow re-discussed with him again about chemotherapy, consent taken. TFTs noted, endo c/s for further w/u and to see if Rx needed prior to RT, to avoid RT induced severe hypothyroidism. cbc.chem lytes from 04/06 reviewed labs for tomorrow OOB to chair and PT strongly encouraged. d/w RN,orders in .
[2017-04-07] MEDS ORDERED: DEXAMETHASONE INJECTION 20 MG, ONDANSETRON INJECTION 8 MG in SODIUM CHLORIDE 100 ML IVPB ONE (10:45)
[2017-04-07] MEDS ORDERED: FOSAPREPITANT DIMEGLUMINE 150 MG in SODIUM CHLORIDE 145 ML IVPB ONE (10:45)
[2017-04-07] MEDS ORDERED: SODIUM CHLORIDE IV ONE (11:15)
[2017-04-07] MEDS ORDERED: CISPLATIN IV ONE (11:15)
--- NOTE | 2017-04-07 11:26 | PN ---
Progress Note (short form) - Note Progress Note: NAD on Trach collar. Anticipated chemotherapy today. No acute events overnight. Intake & Output 04/04/17 04/05/17 04/06/17 04/07/17 23:59 23:59 23:59 23:59 Intake Total 6027 588 0541 0 Output Total 400 Balance 1220 985 650 0 Last Vital Signs Temp Pulse Resp BP Pulse Ox 97.6 F 76 18 124/74 100 04/07/17 09:00 04/07/17 09:00 04/07/17 09:00 04/07/17 09:00 04/07/17 09:00 Active Medications Acetylcysteine (Mucomyst 20 Oral / Inh Use Only*) 600 mg NEB TIDR [facility] Last Admin: 04/07/17 05:04 Dose: 600 mg Albuterol Sulfate (Ventolin 0.083% Nebulizer Soln -) 1 amp NEB Q6H PRN PRN Reason: WHEEZING Last Admin: 04/07/17 05:05 Dose: 1 amp Albuterol Sulfate (Ventolin 0.5% -) 1 amp NEB Q4H PRN PRN Reason: SHORT OF BREATH/WHEEZING Last Admin: 04/06/17 23:30 Dose: 1 amp Allopurinol (Zyloprim -) 100 mg PO DAILY [facility] Last Admin: 04/07/17 10:01 Dose: 100 mg Amlodipine Besylate (Norvasc -) 10 mg PO DAILY [facility] Last Admin: 04/07/17 10:00 Dose: 10 mg Aspirin (Asa -) 81 mg PO DAILY [facility] Last Admin: 04/07/17 10:01 Dose: 81 mg Bacitracin (Bacitracin -) 1 applic TP BID [facility] Last Admin: 04/07/17 09:59 Dose: 1 applic Chlordiazepoxide HCl (Librium -) 15 mg PO HS [facility] Docusate Sodium (Colace Liquid -) 100 mg PO DAILY PRN PRN Reason: CONSTIPATION Folic Acid (Folic Acid -) 1 mg PO DAILY [facility] Last Admin: 04/07/17 10:01 Dose: 1 mg Gabapentin (Neurontin -) 400 mg PO TID [facility] Last Admin: 04/07/17 06:46 Dose: 400 mg Heparin Sodium (Porcine) (Heparin -) 5,000 unit SQ TID [facility] Last Admin: 04/07/17 06:46 Dose: 5,000 unit Cisplatin 80 mg/ Sodium (Chloride) 580 mls @ 193.333 mls/hr IV ONCE ONE Stop: 04/07/17 14:14 Sodium Chloride (Normal Saline -) 1,000 mls @ 1,000 mls/hr IV ONCE ONE Stop: 04/07/17 13:14 Ibuprofen (Motrin -) 400 mg PO Q6H PRN PRN Reason: PAIN Metoprolol Tartrate (Lopressor -) 25 mg PO BID [facility] Last Admin: 04/07/17 10:01 Dose: 25 mg Multi-Ingredient Lotion (Eucerin (Large Jar) -) 1 applic TP DAILY PRN PRN Reason: DRY SKIN Multi-Ingredient Ointment (Zinc Oxide) 1 applic TP BID [facility] Last Admin: 04/07/17 10:02 Dose: 1 applic Multivitamins/Minerals/Vitamin C (Tab-A-Vit -) 1 tab PO DAILY [facility] Last Admin: 04/07/17 10:00 Dose: 1 tab Nicotine (Nicoderm Patch -) 14 mg TD DAILY [facility] Last Admin: 04/07/17 10:01 Dose: 14 mg Nystatin (Nystop Powder -) 1 applic TP BID [facility] Last Admin: 04/07/17 10:01 Dose: 1 applic Ondansetron HCl (Zofran Odt -) 8 mg SL Q8H PRN PRN Reason: NAUSEA AND/OR VOMITING Polyethylene Glycol (Miralax (For Daily Use) -) 17 gm PO DAILY PRN PRN Reason: CONSTIPATION Quetiapine Fumarate (Seroquel Xr -) 300 mg PO HS@2000 [facility] Ranitidine HCl (Zantac -) 150 mg PO DAILY [facility] [place] Last Admin: 04/07/17 10:01 Dose: 150 mg Sertraline HCl (Zoloft -) 100 mg PO BID [facility] Last Admin: 04/07/17 10:01 Dose: 100 mg Sodium Chloride ([place] Nasal [place] -) 2 spray NS BID PRN PRN Reason: NASAL CONGESTION Thiamine HCl (Vitamin B1 -) 100 mg PO DAILY [facility] [place] Last Admin: 04/07/17 10:00 Dose: 100 mg Constitutional: Yes: Awake and Alert, NAD on Trach collar Eyes: Yes: WNL, Conjunctiva Clear, EOM Intact HENT: Yes: Trach intact Neck: Yes: Supple, Trachea Midline Cardiovascular: Yes: Regular Rate and Rhythm Respiratory: Yes: scattered rhonchi ...Inspection: Yes: WNL ...Clubbing: No Gastrointestinal: Yes: (+) NS, soft Renal/: Yes: WNL Musculoskeletal: Yes: WNL Extremities: Yes: WNL Edema: No Peripheral Pulses WNL: Yes Integumentary: Yes: WNL Neurological: Yes: WNL, Alert, Oriented ...Motor Strength: WNL Psychiatric: Yes: WNL, Alert, Oriented Labs: Laboratory Results - last 24 hr 04/07/17 04/07/17 04/07/17 06:00 06:00 06:00 WBC 7.3 RBC 3.45 L Hgb 10.2 L Hct 31.5 L MCV 91.3 MCH 29.6 MCHC 32.4 RDW 13.9 Plt Count 235 MPV 9.8 Neutrophils % 51.9 Lymphocytes % 32.6 Monocytes % 8.1 Eosinophils % 6.7 H Basophils % 0.7 Lactic Acid 1.5 LD Total 112 Problem List - Problems (1) Alcohol dependence Code(s): F10.20 - ALCOHOL DEPENDENCE, UNCOMPLICATED Qualifiers: Substance use status: with intoxication Complication of substance- induced condition: with unspecified complication Qualified Code(s): F10.229 - Alcohol dependence with intoxication, unspecified; F10.229 - Alcohol dependence with intoxication, unspecified; F10.229 - Alcohol dependence with intoxication, unspecified (2) COPD (chronic obstructive pulmonary disease) Code(s): J44.9 - CHRONIC OBSTRUCTIVE PULMONARY DISEASE, UNSPECIFIED Qualifiers : COPD type: unspecified COPD Qualified Code(s): J44.9 - Chronic obstructive pulmonary disease, unspecified; J44.9 - Chronic obstructive pulmonary disease, unspecified; J44.9 - Chronic obstructive pulmonary disease, unspecified; J44.9 - Chronic obstructive pulmonary disease, unspecified (3) Cough Code(s): R05 - COUGH (4) Lung cancer Code(s): C34.90 - MALIGNANT NEOPLASM OF UNSP PART OF UNSP BRONCHUS OR LUNG Qualifiers: Laterality: unspecified laterality Lung location: overlapping sites Qualified Code(s): C34.80 - Malignant neoplasm of overlapping sites of unspecified bronchus and lung; C34.80 - Malignant neoplasm of overlapping sites of unspecified bronchus and lung; C34.80 - Malignant neoplasm of overlapping sites of unspecified bronchus and lung; C34.80 - Malignant neoplasm of overlapping sites of unspecified bronchus and lung (5) Nicotine dependence Code(s): F17.200 - NICOTINE DEPENDENCE, UNSPECIFIED, UNCOMPLICATED (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: NSCLC - Adenocarcinoma s/p R VATS/Wedge Resection/CT placement now removed 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 HTN CAD Alcohol Abuse/Dependence Assessment/Plan Trach collar O2 BD TX PRN Enteral feeds SQ Heparin For Chemo / RT Dr Esquivel Problem List - Problems (1) Alcohol dependence Code(s): F10.20 - ALCOHOL DEPENDENCE, UNCOMPLICATED Qualifiers: Substance use status: with intoxication Complication of substance-induced condition: with unspecified complication Qualified Code(s): F10.229 - Alcohol dependence with intoxication, unspecified (2) Cough Code(s): R05 - COUGH (3) Lung cancer Code(s): C34.90 - MALIGNANT NEOPLASM OF UNSP PART OF UNSP BRONCHUS OR LUNG Qualifiers: Laterality: unspecified laterality Lung location: overlapping sites Qualified Code(s): C34.80 - Malignant neoplasm of overlapping sites of unspecified bronchus and lung (4) COPD (chronic obstructive pulmonary disease) Code(s): J44.9 - CHRONIC OBSTRUCTIVE PULMONARY DISEASE, UNSPECIFIED Qualifiers: COPD type: unspecified COPD Qualified Code(s): J44.9 - Chronic obstructive pulmonary disease, unspecified (5) Nicotine dependence Code(s): F17.200 - NICOTINE DEPENDENCE, UNSPECIFIED, UNCOMPLICATED
[2017-04-07 11:54] LABS: ALK PHOS 65 U/L (45-117); ANION GAP 12 (8-16); BILIRUBIN,TOTAL 0.3 mg/dL (0.2-1.0); CALCIUM 9.1 mg/dL (8.5-10.1); CO2 26 mmol/L (21-32); CREATININE 0.9 mg/dL (0.7-1.3); GLUCOSE,RANDOM 94 mg/dL (74-106); SGOT/AST 10 U/L (15-37); SGPT/ALT 18 U/L (12-78)
[2017-04-07] MEDS ORDERED: SODIUM CHLORIDE 1,000 ML IV ONE (12:15)
--- NOTE | 2017-04-07 14:41 | CONSULT ---
Consult Consult Specialty:: Endocrinology Referred by:: Dr Roger Berrios Reason for Consultation:: Abnormal TFT - History of Present Illness Chief Complaint: abnormal TSH History of Present Illness: This is a 56 y/o man with h/o Nicotine dependence, HTN, CAD s/p Stenting , hyperlipidemia and recently diagnosed R lung adenocarcinoma who presented for pulmonary resection. 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 Pt currently awake, alert. Denies any complaints. Denies any personal or family h/o of thyroid disorder. Pt referred for management of abnormal TFT, with a TSH of 6.63 as he is going for radiation. Chart reviewed. Hospital course included acute hypoxic resp failure and acute delirium which has resolved. - History Source History Provided By: Patient, Medical Record - Past Medical History Cardio/Vascular: Yes: CAD, HTN, Hyperlipdemia Pulmonary: Yes: Other (Lung CA) ENT: Yes: Other (Laryngeal Ca) - Alcohol/Substance Use Hx Alcohol Use: Yes - Smoking History Smoking history: Former smoker Have you smoked in the past 12 months: Yes Aproximately how many cigarettes per day: 6 If you are a former smoker, when did you quit?: 6 Home Medications - Allergies Allergies/Adverse Reactions: Allergies Allergy/AdvReac Type Severity Reaction Status Date / Time No Known Drug Allergies Allergy Verified 02/11/17 09:15 - Home Medications Home Medications: Ambulatory Orders Amlodipine Besylate 10 mg PO DAILY 12/23/16 Atorvastatin Ca [Lipitor] 10 mg PO HS 12/23/16 Gabapentin 800 mg PO TID 12/23/16 Quetiapine Fumarate "Xr" [Seroquel Xr -] 300 mg PO ACDIN 12/23/16 Sertraline HCl [Zoloft] 100 mg PO BID 12/23/16 Folic Acid 1 mg PO DAILY 01/02/17 Allopurinol [Zyloprim -] 100 mg PO DAILY 02/12/17 Aspirin [ASA -] 81 mg PO DAILY 02/12/17 Family Disease History - Family Disease History Other Family History: No family h/o thyroid disorder Review of Systems Findings/Remarks: Answers with yes and nos only b/o trach - Review of Systems Constitutional: reports: No Symptoms Eyes: reports: No Symptoms HENT: reports: Other (trach in place) Neck: reports: Other (trach in place) Cardiovascular: reports: No Symptoms Respiratory: reports: No Symptoms Gastrointestinal: reports: No Symptoms Musculoskeletal: reports: No Symptoms Endocrine: reports: No Symptoms Physical Exam Vital Signs: Vital Signs Temperature 98.1 F 04/07/17 13:59 Pulse Rate 72 04/07/17 14:36 Respiratory Rate 20 04/07/17 13:59 Blood Pressure 109/66 04/07/17 13:59 O2 Sat by Pulse Oximetry (%) 98 04/07/17 14:36 Constitutional: Yes: No Distress, Calm Eyes: Yes: Conjunctiva Clear, EOM Intact HENT: Yes: Atraumatic, Normocephalic Neck: Yes: Other (tracheostomy in place) Cardiovascular: Yes: Regular Rate and Rhythm Respiratory: Yes: Regular, CTA Bilaterally Gastrointestinal: Yes: Normal Bowel Sounds, Soft Breast(s): Yes: WNL Extremities: Yes: WNL Edema: No Neurological: Yes: Alert Labs: CBC, BMP 04/07/17 06:00 04/07/17 06:00 Problem List - Problems (1) Laryngeal squamous cell carcinoma Code(s): C32.9 - MALIGNANT NEOPLASM OF LARYNX, UNSPECIFIED (2) Lung cancer Code(s): C34.90 - MALIGNANT NEOPLASM OF UNSP PART OF UNSP BRONCHUS OR LUNG Qualifiers: Laterality: unspecified laterality Lung location: overlapping sites Qualified Code(s): C34.80 - Malignant neoplasm of overlapping sites of unspecified bronchus and lung Assessment/Plan AP: Subclinical Hypothyroidism in pt scheculed for radiation to neck Risk of hypothyroidism s/p RT can be as high as 40% Repeat TFT with TPO tomorrow Will f/u Laryngeal SCC s/p larynegectomy, with flap reconstruction Getting chemo today For RTx tomorrow Lung Ca HTN -cont norvasc and Metoprolol. CAD: aspirin Nicotine dependence : nicotine patch .
--- NOTE | 2017-04-07 16:05 | PN ---
Teaching Attending Note Name of Resident: Reyna Mc ATTENDING PHYSICIAN STATEMENT I saw and evaluated the patient. I reviewed the resident's note and discussed the case with the resident. I agree with the resident's findings and plan as documented. SUBJECTIVE: no complaints today. Over night tried to reach for his trach, but was reoriented quickly OBJECTIVE: NAD,awake, cooperative Neck with well healing scar. trach collar on . CV: RRR Lungs: clear bilaterally Ext: anterior thigh dry wounds Abd: soft, NT, ND, PEG in place ASSESSMENT AND PLAN: 56 y/o gentleman with h/o Nicotine dependence, HTN, CAD s/p Stenting , hyperlipidemia and recently diagnosed R lung adenocarcinoma who presented for pulmonary resection. 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 Cont O2 through trach 2- Acute delirium. improved. - cont librium at 10 qHS in a trial to wean off as tolerated - cont seroquel 300 xr. 3- Laryngeal SCC s/p larynegectomy, with flap reconstruction - plan for RTx tomorrow - chemo today. pre-post chemo IVF - if unable to tolerate PO nutrition while getting radiation, then a feding tube has to replace the rader and start feeding 4- HTN -cont norvasc and Metoprolol. 5- CAD: aspirin 6- Nicotine dependence : nicotine patch . 7- TFTs abnormality: agree with consulting Endo for further evaluation. DVT px with heparin
--- NOTE | 2017-04-07 18:07 | PN ---
Progress Note (short form) - Note Progress Note: Patient started chemoRT this week. He tolerated the first RT fraction today. We will continue as planned. He was advised of the importance to nourish and hydrate himself during the treatment
[2017-04-07] MEDS: chlordiazePOXIDE 5 MG CAPSULE PO SCH (21:51)
[2017-04-08] MEDS: GABAPENTIN 400 MG CAPSULE (FP) PO SCH ×3 (05:41→22:15)
[2017-04-08] MEDS: HEPARIN NA (PORCINE) 5,000 UNITS/ML 1ML VIAL SQ SCH ×3 (05:41→22:15)
[2017-04-08] MEDS: ALBUTEROL SO4 0.083% IH SOL 2.5 MG/3 ML VIAL.NEB. NEB PRN ×3 (07:05→23:48)
[2017-04-08] MEDS: ACETYLCYSTEINE 20% 200MG/ML 4 ML VIAL *FOR ORAL / INH USE ONLY NEB SCH ×3 (07:05→23:48)
[2017-04-08 07:59] LABS: BASO % 0.2 % (0-2.0); MCH 29.7 pg (25.7-33.7); MCHC 32.6 g/dl (32.0-35.9); MEAN CELL VOLUME 91.1 fl (80-96); MEAN PLT VOLUME 9.6 fl (7.5-11.1); NEUT % 83.8 % (42.8-82.8); PLATELET COUNT 241 K/MM3 (134-434); RDW 13.6 % (11.9-15.9); WHITE BLOOD COUNT 9.2 K/mm3 (4.0-10.0)
[2017-04-08 08:29] LABS: ALBUMIN 2.7 g/dl (3.4-5.0); ALK PHOS 63 U/L (45-117); ANION GAP 9 (8-16); BILIRUBIN,TOTAL 0.4 mg/dL (0.2-1.0); CALCIUM 8.3 mg/dL (8.5-10.1); CO2 23 mmol/L (21-32); CREATININE 0.8 mg/dL (0.7-1.3); GLUCOSE,RANDOM 122 mg/dL (74-106); PHOSPHOROUS 3.5 mg/dL (2.5-4.9); SGOT/AST 8 U/L (15-37); SGPT/ALT 17 U/L (12-78); THYROID STIMULATING HORMONE 0.94 uIU/ml (0.358-3.74); TOT PROT 6.8 g/dl (6.4-8.2)
[2017-04-08] MEDS: MULTIVITAMINS (DAILY MVI) TABLET (FP) PO SCH (09:41)
[2017-04-08] MEDS: NICOTINE 14 MG/24 HOURS TOPICAL PATCH TD SCH (09:41)
[2017-04-08] MEDS: amLODIPine BESYLATE 10 MG TABLET (FP) PO SCH (09:41)
[2017-04-08] MEDS: FOLIC ACID 1 MG TABLET (FP) PO SCH (09:41)
[2017-04-08] MEDS: RANITIDINE HCL 150 MG TABLET (FP) PO SCH (09:41)
[2017-04-08] MEDS: ALLOPURINOL 100 MG TABLET (FP) PO SCH (09:41)
[2017-04-08] MEDS: THIAMINE HCL 100 MG TABLET (FP) PO SCH (09:41)
[2017-04-08] MEDS: SERTRALINE HCL 50 MG TABLET (FP) PO SCH ×2 (09:41→22:15)
[2017-04-08] MEDS: ASPIRIN 81 MG CHEWABLE TABLETS PO SCH (09:41)
[2017-04-08] MEDS: ZINC OXIDE 20% TOPICAL OINTMENT 30 GM TUBE TP SCH ×2 (09:42→22:17)
[2017-04-08] MEDS: BACITRACIN 15 GM TUBE TOPICAL OINTMENT TP SCH ×2 (09:42→22:16)
[2017-04-08] MEDS: NYSTATIN POWDER 100,000 UNITS/GM - 15 GM TOPICAL POWDER TP SCH ×2 (09:42→22:17)
[2017-04-08] MEDS: METOPROLOL TARTRATE 25 MG TABLET (FP) PO SCH ×2 (09:43→22:15)
--- NOTE | 2017-04-08 11:47 | PN ---
Progress Note (short form) - Note Progress Note: PULMONARY RESTING COMFORTABLY SITTER 1:1 VSS/AFEBRILE ANICTERIC/TRACH IN PLACE CLEAR ANTERIOR BREATH SOUNDS S1S2 BS+ SOFT NO EDEMA LABS/MEDS/NOTES/IMAGES REVIEWED RT/CHEMOTX 1) -RUL adenocarcinoma - s/p vats wedge resection/right - Dilaudid/Oxycodone for pain - incentive spirometry - O2 prn 2) Supraglottic lesion - s/p laryngoscopy biopsy revealing squamous cell Ca - s/p total laryngectomy and radical neck dissection revealing stage 4b disease - now receiving adjuvant therapy /chemo/rt 3) ETOH abuse 4) CAD s/p PCI stents 5) DVT Prophylaxis - Heparin 5,000U SQ BID - sheree SCDs (6) NEEDS PT R JUAN CABRERA
--- NOTE | 2017-04-08 14:31 | PN ---
Progress Note (short form) - Note Progress Note: Patient seen and examined seen and examined tolerated well. denies any complains. He feels OK. Denies any complains. O/E NAD,ECOG PS1 Neck trach collar on . CV: RRR Lungs: clear bilaterally Abd: soft, NT, ND , PEG in place Thigh: flap looks clean and dry, well healing No decub Last Vital Signs Temp Pulse Resp BP Pulse Ox 97.4 F L 93 H 20 110/62 96 04/08/17 09:00 04/08/17 09:00 04/08/17 09:00 04/08/17 09:00 04/08/17 09:00 CBC, BMP 04/08/17 06:00 04/08/17 06:00 Current Medications Generic Name Dose Route Start Last Admin Trade Name Freq PRN Reason Stop Dose Admin Acetylcysteine 600 mg 04/07/17 06:00 04/08/17 07:05 Mucomyst 20 Oral / Inh Use Only* NEB 600 mg TIDR JUNIOR Administration Albuterol Sulfate 1 amp 04/06/17 22:50 04/08/17 07:05 Ventolin 0.083% Nebulizer Soln - NEB 1 amp Q6H PRN Administration WHEEZING Albuterol Sulfate 1 amp 04/06/17 22:50 04/06/17 23:30 Ventolin 0.5% - NEB 1 amp Q4H PRN Administration SHORT OF BREATH/WHEEZING Allopurinol 100 mg 04/07/17 10:00 04/08/17 09:41 Zyloprim - PO 100 mg DAILY JUNIOR Administration Amlodipine Besylate 10 mg 04/07/17 10:00 04/08/17 09:41 Norvasc - PO 10 mg DAILY JUNIOR Administration Aspirin 81 mg 04/07/17 10:00 04/08/17 09:41 Asa - PO 81 mg DAILY JUNIOR Administration Bacitracin 1 applic 04/07/17 10:00 04/08/17 09:42 Bacitracin - TP 1 applic BID JUNIOR Administration Chlordiazepoxide HCl 15 mg 04/07/17 22:00 04/07/17 21:51 Librium - PO 15 mg HS JUNIOR Administration Docusate Sodium 100 mg 04/06/17 22:50 Colace Liquid - PO DAILY PRN CONSTIPATION Folic Acid 1 mg 04/07/17 10:00 04/08/17 09:41 Folic Acid - PO 1 mg DAILY JUNIOR Administration Gabapentin 400 mg 04/07/17 06:00 04/08/17 14:01 Neurontin - PO 400 mg TID JUNIOR Administration Heparin Sodium (Porcine) 5,000 unit 04/07/17 06:00 04/08/17 14:01 Heparin - SQ 5,000 unit TID JUNIOR Administration Ibuprofen 400 mg 04/06/17 22:50 Motrin - PO Q6H PRN PAIN Metoprolol Tartrate 25 mg 04/07/17 10:00 04/08/17 09:43 Lopressor - PO Not Given BID JUNIOR Multi-Ingredient Lotion 1 applic 04/06/17 22:50 Eucerin (Large Jar) - TP DAILY PRN DRY SKIN Multi-Ingredient Ointment 1 applic 04/07/17 10:00 04/08/17 09:42 Zinc Oxide TP 1 applic BID JUNIOR Administration Multivitamins/Minerals/Vitamin C 1 tab 04/07/17 10:00 04/08/17 09:41 Tab-A-Vit - PO 1 tab DAILY JUNIOR Administration Nicotine 14 mg 04/07/17 10:00 04/08/17 09:41 Nicoderm Patch - TD 14 mg DAILY JUNIOR Administration Nystatin 1 applic 04/07/17 10:00 04/08/17 09:42 Nystop Powder - TP 1 applic BID JUNIOR Administration Ondansetron HCl 8 mg 04/06/17 22:50 Zofran Odt - SL Q8H PRN NAUSEA AND/OR VOMITING Polyethylene Glycol 17 gm 04/06/17 22:50 Miralax (For Daily Use) - PO DAILY PRN CONSTIPATION Quetiapine Fumarate 300 mg 04/07/17 20:00 04/07/17 20:15 Seroquel Xr - PO 300 mg HS@2000 JUNIOR Administration Ranitidine HCl 150 mg 04/07/17 10:00 04/08/17 09:41 Zantac - PO 150 mg DAILY JUNIOR Administration Sertraline HCl 100 mg 04/07/17 10:00 04/08/17 09:41 Zoloft - PO 100 mg BID JUNIOR Administration Sodium Chloride 2 spray 04/06/17 22:50 04/07/17 21:54 [place] Nasal [place] - NS 2 spray BID PRN Administration NASAL CONGESTION Thiamine HCl 100 mg 04/07/17 10:00 04/08/17 09:41 Vitamin B1 - PO 100 mg DAILY JUNIOR Administration 56 yo w stage I adenocarcinoma of RUL s/p VATS/wedge rxn w neg margins ( no adjuvant Treatment indicated ) 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 s.pweek one cis for RT
--- NOTE | 2017-04-08 17:02 | PN ---
Progress Note (short form) - Note Progress Note: In bed in NAD On Trach collar Awaiting RT Vital Signs Period Temp Pulse Resp BP Sys/Clay Pulse Ox Last 24 Hr 97.4 F-98.4 F 62-93 20-20 100-132/55-77 95-96 PE: awake alert Neck: +Trach collar HEENT: EOMI Lungs: CTA CVS: S1S2 Abd: Benign Ext: No edema CMP Sodium 139 mmol/L (136-145) 04/08/17 06:00 Potassium 4.7 mmol/L (3.5-5.1) 04/08/17 06:00 Chloride 107 mmol/L (98-107) 04/08/17 06:00 Carbon Dioxide 23 mmol/L (21-32) 04/08/17 06:00 Anion Gap 9 (8-16) 04/08/17 06:00 BUN 15 mg/dL (7-18) 04/08/17 06:00 Creatinine 0.8 mg/dL (0.7-1.3) 04/08/17 06:00 Creat Clearance w eGFR > 60 (>60) 04/08/17 06:00 POC Glucometer 115 UNITS (80-120) 03/16/17 11:19 Random Glucose 122 mg/dL (74-106) H D 04/08/17 06:00 Hemoglobin A1c % 5.5 % (4.8-6.0) 02/26/17 06:10 Lactic Acid 1.5 mmol/L (0.4-2.0) 04/07/17 06:00 Calcium 8.3 mg/dL (8.5-10.1) L 04/08/17 06:00 Ionized Calcium 4.8 mg/dL (4.5-5.6) 02/11/17 10:24 Phosphorus 3.5 mg/dL (2.5-4.9) D 04/08/17 06:00 Magnesium 2.0 mg/dL (1.8-2.4) 04/08/17 06:00 Iron 55 ug/dL (38-169) 03/20/17 06:25 TIBC 197 ug/dL (250-450) L 03/20/17 06:25 Iron Saturation 28 % (15-55) 03/20/17 06:25 Transferrin 157 mg/dL (200-370) L 03/20/17 06:25 Direct Bilirubin 0.2 mg/dL (0.0-0.2) 02/11/17 10:24 Ferritin 157.666 ng/ml (16.4-293.9) 03/20/17 06:25 Total Bilirubin 0.4 mg/dL (0.2-1.0) D 04/08/17 06:00 AST 8 U/L (15-37) L 04/08/17 06:00 ALT 17 U/L (12-78) 04/08/17 06:00 Alkaline Phosphatase 63 U/L (45-117) 04/08/17 06:00 Creatine Kinase 71 IU/L (39-308) 02/11/17 10:24 Ammonia 18.52 umol/L (11-32) 02/25/17 15:05 LD Total 112 U/L (87-241) 04/07/17 06:00 Troponin I < 0.02 ng/ml (0.00-0.05) 02/11/17 10:24 Total Protein 6.8 g/dl (6.4-8.2) 04/08/17 06:00 Albumin 2.7 g/dl (3.4-5.0) L 04/08/17 06:00 Lipase 124 U/L (73-393) 02/11/17 10:24 Vitamin B12 469 pg/ml (180-914) 03/20/17 06:25 Serum Folate 27 ng/ml (3.1-17.5) H 03/20/17 06:25 TSH 0.94 uIU/ml (0.358-3.74) D 04/08/17 06:00 Free T4 0.63 ng/dl (0.76-1.16) L 04/08/17 06:00 Current Medications Generic Name Dose Route Start Last Admin Trade Name Freq PRN Reason Stop Dose Admin Acetylcysteine 600 mg 04/07/17 06:00 04/08/17 14:36 Mucomyst 20 Oral / Inh Use Only* NEB 600 mg TIDR JUNIOR Administration Albuterol Sulfate 1 amp 04/06/17 22:50 04/08/17 14:36 Ventolin 0.083% Nebulizer Soln - NEB 1 amp Q6H PRN Administration WHEEZING Albuterol Sulfate 1 amp 04/06/17 22:50 04/06/17 23:30 Ventolin 0.5% - NEB 1 amp Q4H PRN Administration SHORT OF BREATH/WHEEZING Allopurinol 100 mg 04/07/17 10:00 04/08/17 09:41 Zyloprim - PO 100 mg DAILY JUNIOR Administration Amlodipine Besylate 10 mg 04/07/17 10:00 04/08/17 09:41 Norvasc - PO 10 mg DAILY JUNIOR Administration Aspirin 81 mg 04/07/17 10:00 04/08/17 09:41 Asa - PO 81 mg DAILY JUNIOR Administration Bacitracin 1 applic 04/07/17 10:00 04/08/17 09:42 Bacitracin - TP 1 applic BID JUNIOR Administration Chlordiazepoxide HCl 15 mg 04/07/17 22:00 04/07/17 21:51 Librium - PO 15 mg HS JUNIOR Administration Docusate Sodium 100 mg 04/06/17 22:50 Colace Liquid - PO DAILY PRN CONSTIPATION Folic Acid 1 mg 04/07/17 10:00 04/08/17 09:41 Folic Acid - PO 1 mg DAILY JUNIOR Administration Gabapentin 400 mg 04/07/17 06:00 04/08/17 14:01 Neurontin - PO 400 mg TID JUNIOR Administration Heparin Sodium (Porcine) 5,000 unit 04/07/17 06:00 04/08/17 14:01 Heparin - SQ 5,000 unit TID JUNIOR Administration Ibuprofen 400 mg 04/06/17 22:50 Motrin - PO Q6H PRN PAIN Metoprolol Tartrate 25 mg 04/07/17 10:00 04/08/17 09:43 Lopressor - PO Not Given BID JUNIOR Multi-Ingredient Lotion 1 applic 04/06/17 22:50 Eucerin (Large Jar) - TP DAILY PRN DRY SKIN Multi-Ingredient Ointment 1 applic 04/07/17 10:00 04/08/17 09:42 Zinc Oxide TP 1 applic BID JUNIOR Administration Multivitamins/Minerals/Vitamin C 1 tab 04/07/17 10:00 04/08/17 09:41 Tab-A-Vit - PO 1 tab DAILY JUNIOR Administration Nicotine 14 mg 04/07/17 10:00 04/08/17 09:41 Nicoderm Patch - TD 14 mg DAILY JUNIOR Administration Nystatin 1 applic 04/07/17 10:00 04/08/17 09:42 Nystop Powder - TP 1 applic BID JUNIOR Administration Ondansetron HCl 8 mg 04/06/17 22:50 Zofran Odt - SL Q8H PRN NAUSEA AND/OR VOMITING Polyethylene Glycol 17 gm 04/06/17 22:50 Miralax (For Daily Use) - PO DAILY PRN CONSTIPATION Quetiapine Fumarate 300 mg 04/07/17 20:00 04/07/17 20:15 Seroquel Xr - PO 300 mg HS@2000 JUNIOR Administration Ranitidine HCl 150 mg 04/07/17 10:00 04/08/17 09:41 Zantac - PO 150 mg DAILY JUNIOR Administration Sertraline HCl 100 mg 04/07/17 10:00 04/08/17 09:41 Zoloft - PO 100 mg BID JUNIOR Administration Sodium Chloride 2 spray 04/06/17 22:50 04/07/17 21:54 [place] Nasal [place] - NS 2 spray BID PRN Administration NASAL CONGESTION Thiamine HCl 100 mg 04/07/17 10:00 04/08/17 09:41 Vitamin B1 - PO 100 mg DAILY JUNIOR Administration AP: Subclinical Hypothyroidism in pt scheculed for radiation to neck Risk of hypothyroidism s/p RT can be as high as 40% Repeat TFT shows a TSH of 0.94 and FT4 0f 0.63 from a TSH of 6.63 Change that is difficult to have occurred in a period of 4 days. Will repeat labs again in 2 days and f/u Laryngeal SCC s/p larynegectomy, with flap reconstruction Getting chemo today For RTx tomorrow Lung Ca HTN -cont norvasc and Metoprolol. CAD: aspirin Nicotine dependence : nicotine patch . Problem List - Problems (1) Laryngeal squamous cell carcinoma Code(s): C32.9 - MALIGNANT NEOPLASM OF LARYNX, UNSPECIFIED (2) Lung cancer Code(s): C34.90 - MALIGNANT NEOPLASM OF UNSP PART OF UNSP BRONCHUS OR LUNG Qualifiers: Laterality: unspecified laterality Lung location: overlapping sites Qualified Code(s): C34.80 - Malignant neoplasm of overlapping sites of unspecified bronchus and lung
--- NOTE | 2017-04-08 19:46 | PN ---
Teaching Attending Note Name of Resident: Reyna Mc ATTENDING PHYSICIAN STATEMENT I saw and evaluated the patient. I reviewed the resident's note and discussed the case with the resident. I agree with the resident's findings and plan as documented. SUBJECTIVE: Patient is feeling better today, not agitated, looks happy. OBJECTIVE: Vital Signs Temperature 97.9 F 04/08/17 18:00 Pulse Rate 76 04/08/17 18:00 Respiratory Rate 20 04/08/17 18:00 Blood Pressure 110/62 04/08/17 18:00 O2 Sat by Pulse Oximetry (%) 96 04/08/17 09:00 CBCD WBC 9.2 K/mm3 (4.0-10.0) 04/08/17 06:00 RBC 3.73 M/mm3 (4.00-5.60) L 04/08/17 06:00 Hgb 11.1 GM/dL (11.7-16.9) L 04/08/17 06:00 Hct 34.0 % (35.4-49) L 04/08/17 06:00 MCV 91.1 fl (80-96) 04/08/17 06:00 MCHC 32.6 g/dl (32.0-35.9) 04/08/17 06:00 RDW 13.6 % (11.9-15.9) 04/08/17 06:00 Plt Count 241 K/MM3 (134-434) 04/08/17 06:00 MPV 9.6 fl (7.5-11.1) 04/08/17 06:00 CMP Sodium 139 mmol/L (136-145) 04/08/17 06:00 Potassium 4.7 mmol/L (3.5-5.1) 04/08/17 06:00 Chloride 107 mmol/L (98-107) 04/08/17 06:00 Carbon Dioxide 23 mmol/L (21-32) 04/08/17 06:00 Anion Gap 9 (8-16) 04/08/17 06:00 BUN 15 mg/dL (7-18) 04/08/17 06:00 Creatinine 0.8 mg/dL (0.7-1.3) 04/08/17 06:00 Creat Clearance w eGFR > 60 (>60) 04/08/17 06:00 Random Glucose 122 mg/dL (74-106) H D 04/08/17 06:00 Calcium 8.3 mg/dL (8.5-10.1) L 04/08/17 06:00 Total Bilirubin 0.4 mg/dL (0.2-1.0) D 04/08/17 06:00 AST 8 U/L (15-37) L 04/08/17 06:00 ALT 17 U/L (12-78) 04/08/17 06:00 Alkaline Phosphatase 63 U/L (45-117) 04/08/17 06:00 Total Protein 6.8 g/dl (6.4-8.2) 04/08/17 06:00 Albumin 2.7 g/dl (3.4-5.0) L 04/08/17 06:00 CARDIAC ENZYMES Creatine Kinase 71 IU/L (39-308) 02/11/17 10:24 Troponin I < 0.02 ng/ml (0.00-0.05) 02/11/17 10:24 Current Medications Generic Name Dose Route Start Last Admin Trade Name Freq PRN Reason Stop Dose Admin Acetylcysteine 600 mg 04/07/17 06:00 04/08/17 14:36 Mucomyst 20 Oral / Inh Use Only* NEB 600 mg TIDR JUNIOR Administration Albuterol Sulfate 1 amp 04/06/17 22:50 04/08/17 14:36 Ventolin 0.083% Nebulizer Soln - NEB 1 amp Q6H PRN Administration WHEEZING Albuterol Sulfate 1 amp 04/06/17 22:50 04/06/17 23:30 Ventolin 0.5% - NEB 1 amp Q4H PRN Administration SHORT OF BREATH/WHEEZING Allopurinol 100 mg 04/07/17 10:00 04/08/17 09:41 Zyloprim - PO 100 mg DAILY JUNIOR Administration Amlodipine Besylate 10 mg 04/07/17 10:00 04/08/17 09:41 Norvasc - PO 10 mg DAILY JUNIOR Administration Aspirin 81 mg 04/07/17 10:00 04/08/17 09:41 Asa - PO 81 mg DAILY JUNIOR Administration Bacitracin 1 applic 04/07/17 10:00 04/08/17 09:42 Bacitracin - TP 1 applic BID JUNIOR Administration Chlordiazepoxide HCl 15 mg 04/07/17 22:00 04/07/17 21:51 Librium - PO 15 mg HS JUNIOR Administration Docusate Sodium 100 mg 04/06/17 22:50 Colace Liquid - PO DAILY PRN CONSTIPATION Folic Acid 1 mg 04/07/17 10:00 04/08/17 09:41 Folic Acid - PO 1 mg DAILY JUNIOR Administration Gabapentin 400 mg 04/07/17 06:00 04/08/17 14:01 Neurontin - PO 400 mg TID JUNIOR Administration Heparin Sodium (Porcine) 5,000 unit 04/07/17 06:00 04/08/17 14:01 Heparin - SQ 5,000 unit TID JUNIOR Administration Ibuprofen 400 mg 04/06/17 22:50 Motrin - PO Q6H PRN PAIN Metoprolol Tartrate 25 mg 04/07/17 10:00 04/08/17 09:43 Lopressor - PO Not Given BID JUNIOR Multi-Ingredient Lotion 1 applic 04/06/17 22:50 Eucerin (Large Jar) - TP DAILY PRN DRY SKIN Multi-Ingredient Ointment 1 applic 04/07/17 10:00 04/08/17 09:42 Zinc Oxide TP 1 applic BID JUNIOR Administration Multivitamins/Minerals/Vitamin C 1 tab 04/07/17 10:00 04/08/17 09:41 Tab-A-Vit - PO 1 tab DAILY JUNIOR Administration Nicotine 14 mg 04/07/17 10:00 04/08/17 09:41 Nicoderm Patch - TD 14 mg DAILY JUNIOR Administration Nystatin 1 applic 04/07/17 10:00 04/08/17 09:42 Nystop Powder - TP 1 applic BID JUNIOR Administration Ondansetron HCl 8 mg 04/06/17 22:50 Zofran Odt - SL Q8H PRN NAUSEA AND/OR VOMITING Polyethylene Glycol 17 gm 04/06/17 22:50 Miralax (For Daily Use) - PO DAILY PRN CONSTIPATION Quetiapine Fumarate 300 mg 04/07/17 20:00 04/07/17 20:15 Seroquel Xr - PO 300 mg HS@2000 JUNIOR Administration Ranitidine HCl 150 mg 04/07/17 10:00 04/08/17 09:41 Zantac - PO 150 mg DAILY JUNIOR Administration Sertraline HCl 100 mg 04/07/17 10:00 04/08/17 09:41 Zoloft - PO 100 mg BID JUNIOR Administration Sodium Chloride 2 spray 12/18/17 22:50 04/07/17 21:54 [place] Nasal [place] - NS 2 spray BID PRN Administration NASAL CONGESTION Thiamine HCl 100 mg 04/07/17 10:00 04/08/17 09:41 Vitamin B1 - PO 100 mg DAILY JUNIOR Administration Home Medications Medication Instructions Recorded Amlodipine Besylate 10 mg PO DAILY 12/23/16 Atorvastatin Ca [Lipitor] 10 mg PO HS 12/23/16 Gabapentin 800 mg PO TID 12/23/16 Quetiapine Fumarate "Xr" [Seroquel 300 mg PO ACDIN 12/23/16 Xr -] Sertraline HCl [Zoloft] 100 mg PO BID 12/23/16 Folic Acid 1 mg PO DAILY 01/02/17 Allopurinol [Zyloprim -] 100 mg PO DAILY 02/12/17 Aspirin [ASA -] 81 mg PO DAILY 02/12/17 PE: lying in bed comfortably with no acute distress rest of PE per resident's note ASSESSMENT AND PLAN: Patient is a 56 y/o gentleman with h/o Nicotine dependence, HTN, CAD s/p Stenting , hyperlipidemia and recently diagnosed R lung adenocarcinoma who presented for pulmonary resection. Also was found to have laryngeal SCC , now s/ p laryngectomy and flap reconstruction # Laryngeal SCC s/p larynegectomy, with flap reconstruction given 1x dose of chemo, discussed with oncologist regarding the care for the patient. Plan Rtx/ Chemo possible post rehab. If unable to tolerate PO nutrition while getting radiation, then a feding tube has to replace the rader and start feeding # Acute hypoxic resp failure resolved. s/p trach.Cont O2 through trach # Acute delirium. improved. cont librium at 10 qHS in a trial to wean off as tolerated , cont seroquel 300 xr.and Welbutryn # HTN -cont norvasc and Metoprolol. # CAD: aspirin # Nicotine dependence : nicotine patch . DVT px with heparin PT continue.
--- NOTE | 2017-04-08 19:46 | PN ---
Physical Exam: 24H Events: yesterday - received 1st dose of Cisplatin and RT fraction yesterday O/N - no acute events SUBJECTIVE: Patient seen and examined. On 1:1. Tolerated chemoRT yesterday. Offers no complaints. No fever or chills, chest pain, abdominal pain. OBJECTIVE: Vital Signs Period Temp Pulse Resp BP Sys/Clay Pulse Ox Last 24 Hr 97.4 F-98.4 F 62-93 20-20 100-132/55-77 95-96 GENERAL: nad, aaox3 NECK: Trachea midline, supple, trach collar sutured in place, well healing scar LUNGS: CTAB, no wheezes, crackles, or accessory muscle use HEART: rrr, normal s1/s2, no m/r/g, no JVD ABDOMEN: soft, ndnt, PEG sutured in place EXTREMITIES: wwp, no edema, 2+ DP, b/l thigh flap sites c/d/i CBC, BMP 04/08/17 06:00 04/08/17 06:00 Hepatic Panel Direct Bilirubin 0.2 mg/dL (0.0-0.2) 02/11/17 10:24 Total Bilirubin 0.4 mg/dL (0.2-1.0) D 04/08/17 06:00 AST 8 U/L (15-37) L 04/08/17 06:00 ALT 17 U/L (12-78) 04/08/17 06:00 Alkaline Phosphatase 63 U/L (45-117) 04/08/17 06:00 Albumin 2.7 g/dl (3.4-5.0) L 04/08/17 06:00 Active Medications Acetylcysteine (Mucomyst 20 Oral / Inh Use Only*) 600 mg NEB TIDR JUNIOR Last Admin: 04/08/17 14:36 Dose: 600 mg Albuterol Sulfate (Ventolin 0.083% Nebulizer Soln -) 1 amp NEB Q6H PRN PRN Reason: WHEEZING Last Admin: 04/08/17 14:36 Dose: 1 amp Albuterol Sulfate (Ventolin 0.5% -) 1 amp NEB Q4H PRN PRN Reason: SHORT OF BREATH/WHEEZING Last Admin: 04/06/17 23:30 Dose: 1 amp Allopurinol (Zyloprim -) 100 mg PO DAILY [facility] Last Admin: 04/08/17 09:41 Dose: 100 mg Amlodipine Besylate (Norvasc -) 10 mg PO DAILY [facility] Last Admin: 04/08/17 09:41 Dose: 10 mg Aspirin (Asa -) 81 mg PO DAILY [facility] Last Admin: 04/08/17 09:41 Dose: 81 mg Bacitracin (Bacitracin -) 1 applic TP BID [facility] Last Admin: 04/08/17 09:42 Dose: 1 applic Chlordiazepoxide HCl (Librium -) 15 mg PO HS [facility] Last Admin: 04/07/17 21:51 Dose: 15 mg Docusate Sodium (Colace Liquid -) 100 mg PO DAILY PRN PRN Reason: CONSTIPATION Folic Acid (Folic Acid -) 1 mg PO DAILY [facility] Last Admin: 04/08/17 09:41 Dose: 1 mg Gabapentin (Neurontin -) 400 mg PO TID [facility] Last Admin: 04/08/17 14:01 Dose: 400 mg Heparin Sodium (Porcine) (Heparin -) 5,000 unit SQ TID [facility] Last Admin: 04/08/17 14:01 Dose: 5,000 unit Ibuprofen (Motrin -) 400 mg PO Q6H PRN PRN Reason: PAIN Metoprolol Tartrate (Lopressor -) 25 mg PO BID [facility] Last Admin: 04/08/17 09:43 Dose: Not Given Multi-Ingredient Lotion (Eucerin (Large Jar) -) 1 applic TP DAILY PRN PRN Reason: DRY SKIN Multi-Ingredient Ointment (Zinc Oxide) 1 applic TP BID [facility] Last Admin: 04/08/17 09:42 Dose: 1 applic Multivitamins/Minerals/Vitamin C (Tab-A-Vit -) 1 tab PO DAILY [facility] Last Admin: 04/08/17 09:41 Dose: 1 tab Nicotine (Nicoderm Patch -) 14 mg TD DAILY [facility] Last Admin: 04/08/17 09:41 Dose: 14 mg Nystatin (Nystop Powder -) 1 applic TP BID [facility] Last Admin: 04/08/17 09:42 Dose: 1 applic Ondansetron HCl (Zofran Odt -) 8 mg SL Q8H PRN PRN Reason: NAUSEA AND/OR VOMITING Polyethylene Glycol (Miralax (For Daily Use) -) 17 gm PO DAILY PRN PRN Reason: CONSTIPATION Quetiapine Fumarate (Seroquel Xr -) 300 mg PO HS@1999 [facility] Last Admin: 04/07/17 20:15 Dose: 300 mg Ranitidine HCl (Zantac -) 150 mg PO DAILY [facility] Last Admin: 04/08/17 09:41 Dose: 150 mg Sertraline HCl (Zoloft -) 100 mg PO BID [facility] Last Admin: 04/08/17 09:41 Dose: 100 mg Sodium Chloride ([place] Nasal [place] -) 2 spray NS BID PRN PRN Reason: NASAL CONGESTION Last Admin: 04/07/17 21:54 Dose: 2 spray Thiamine HCl (Vitamin B1 -) 100 mg PO DAILY [facility] Last Admin: 04/08/17 09:41 Dose: 100 mg ASSESSMENT/PLAN: 56yo M with PMH of nicotine dependence, CAD (s/p 2x stents), htn, hld, gout, Right lung adenocarcinoma s/p resection, and 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 #Laryngeal SCC -s/p 1st round of Cisplatin/RT -Monitor labs, signs ototoxicity, neuropathy -IVF preceding and after chemotherapy #Acute intermittent delirium, improving -Cont Librium 10mg HS, Seroquel 300mg, and 1:1 sitter #Acute hypoxic respiratory failure, resolved -Trach collar sutured in place, 50% FiO2, cont sunctioning PRN -Mucomyst with albuterol nebs #? Hypothyroidism, repeat TSH 6.63 --> 0.94 -Endocrine consulted. Risk of hypothyroidism s/p RT can be as high as 40%. -Repeat TFTs in 2 days #HTN - Norvasc and Lopressor #CAD - ASA #Gout - Allopurinol #Nicotine dependence - nicoderm patch 14mg #FEN: Hold IVFs/ lytes wnl / Soft diet #PPX -DVT - Heparin TID -GI - Zantac -PT and Chest PT for deconditioning DISPO: continue 7W for chemo/radiation therapy DNR/DNI d/w Dr. Agnes Mc MD PGY1- Internal Medicine Visit type - Emergency Visit Emergency Visit: No - New Patient This patient is new to me today: No - Critical Care Critical Care patient: No
[2017-04-08] MEDS ORDERED: PT OWN MED DRAWER 7, Y5N ONE ×2 (20:02→22:08)
[2017-04-08] MEDS: chlordiazePOXIDE 5 MG CAPSULE PO SCH (22:15)
[2017-04-09] MEDS: HEPARIN NA (PORCINE) 5,000 UNITS/ML 1ML VIAL SQ SCH ×2 (06:13→15:25)
[2017-04-09] MEDS: GABAPENTIN 400 MG CAPSULE (FP) PO SCH ×2 (06:13→15:26)
[2017-04-09] MEDS: ACETYLCYSTEINE 20% 200MG/ML 4 ML VIAL *FOR ORAL / INH USE ONLY NEB SCH ×2 (07:10→14:20)
[2017-04-09] MEDS: ALBUTEROL SO4 0.083% IH SOL 2.5 MG/3 ML VIAL.NEB. NEB PRN ×2 (07:10→14:20)
--- NOTE | 2017-04-09 08:52 | PN ---
Teaching Attending Note Name of Resident: Reyna Mc ATTENDING PHYSICIAN STATEMENT I saw and evaluated the patient. I reviewed the resident's note and discussed the case with the resident. I agree with the resident's findings and plan as documented. SUBJECTIVE: Patient is comfortable, no acute distress, patient is very calm and happy. OBJECTIVE: Vital Signs Temperature 97.3 F L 04/09/17 06:00 Pulse Rate 63 04/09/17 06:00 Respiratory Rate 20 04/09/17 06:00 Blood Pressure 92/50 04/09/17 06:00 O2 Sat by Pulse Oximetry (%) 96 04/08/17 20:13 CBCD WBC 9.2 K/mm3 (4.0-10.0) 04/08/17 06:00 RBC 3.73 M/mm3 (4.00-5.60) L 04/08/17 06:00 Hgb 11.1 GM/dL (11.7-16.9) L 04/08/17 06:00 Hct 34.0 % (35.4-49) L 04/08/17 06:00 MCV 91.1 fl (80-96) 04/08/17 06:00 MCHC 32.6 g/dl (32.0-35.9) 04/08/17 06:00 RDW 13.6 % (11.9-15.9) 04/08/17 06:00 Plt Count 241 K/MM3 (134-434) 04/08/17 06:00 MPV 9.6 fl (7.5-11.1) 04/08/17 06:00 CMP Sodium 139 mmol/L (136-145) 04/08/17 06:00 Potassium 4.7 mmol/L (3.5-5.1) 04/08/17 06:00 Chloride 107 mmol/L (98-107) 04/08/17 06:00 Carbon Dioxide 23 mmol/L (21-32) 04/08/17 06:00 Anion Gap 9 (8-16) 04/08/17 06:00 BUN 15 mg/dL (7-18) 04/08/17 06:00 Creatinine 0.8 mg/dL (0.7-1.3) 04/08/17 06:00 Creat Clearance w eGFR > 60 (>60) 04/08/17 06:00 Random Glucose 122 mg/dL (74-106) H D 04/08/17 06:00 Calcium 8.3 mg/dL (8.5-10.1) L 04/08/17 06:00 Total Bilirubin 0.4 mg/dL (0.2-1.0) D 04/08/17 06:00 AST 8 U/L (15-37) L 04/08/17 06:00 ALT 17 U/L (12-78) 04/08/17 06:00 Alkaline Phosphatase 63 U/L (45-117) 04/08/17 06:00 Total Protein 6.8 g/dl (6.4-8.2) 04/08/17 06:00 Albumin 2.7 g/dl (3.4-5.0) L 04/08/17 06:00 CARDIAC ENZYMES Creatine Kinase 71 IU/L (39-308) 02/11/17 10:24 Troponin I < 0.02 ng/ml (0.00-0.05) 02/11/17 10:24 Current Medications Generic Name Dose Route Start Last Admin Trade Name Freq PRN Reason Stop Dose Admin Acetylcysteine 600 mg 04/07/17 06:00 04/09/17 07:10 Mucomyst 20 Oral / Inh Use Only* NEB 600 mg TIDR JUNIOR Administration Albuterol Sulfate 1 amp 04/06/17 22:50 04/09/17 07:10 Ventolin 0.083% Nebulizer Soln - NEB 1 amp Q6H PRN Administration WHEEZING Albuterol Sulfate 1 amp 04/06/17 22:50 04/06/17 23:30 Ventolin 0.5% - NEB 1 amp Q4H PRN Administration SHORT OF BREATH/WHEEZING Allopurinol 100 mg 04/07/17 10:00 04/08/17 09:41 Zyloprim - PO 100 mg DAILY JUNIOR Administration Amlodipine Besylate 10 mg 04/07/17 10:00 04/08/17 09:41 Norvasc - PO 10 mg DAILY JUNIOR Administration Aspirin 81 mg 04/07/17 10:00 04/08/17 09:41 Asa - PO 81 mg DAILY JUNIOR Administration Bacitracin 1 applic 04/07/17 10:00 04/08/17 22:16 Bacitracin - TP 1 applic BID JUNIOR Administration Chlordiazepoxide HCl 15 mg 04/07/17 22:00 04/08/17 22:15 Librium - PO 15 mg HS JUNIOR Administration Docusate Sodium 100 mg 04/06/17 22:50 Colace Liquid - PO DAILY PRN CONSTIPATION Folic Acid 1 mg 04/07/17 10:00 04/08/17 09:41 Folic Acid - PO 1 mg DAILY JUNIOR Administration Gabapentin 400 mg 04/07/17 06:00 04/09/17 06:13 Neurontin - PO 400 mg TID JUNIOR Administration Heparin Sodium (Porcine) 5,000 unit 04/07/17 06:00 04/09/17 06:13 Heparin - SQ 5,000 unit TID JUNIOR Administration Ibuprofen 400 mg 04/06/17 22:50 Motrin - PO Q6H PRN PAIN Metoprolol Tartrate 25 mg 04/07/17 10:00 04/08/17 22:15 Lopressor - PO 25 mg BID JUNIOR Administration Multi-Ingredient Lotion 1 applic 04/06/17 22:50 Eucerin (Large Jar) - TP DAILY PRN DRY SKIN Multi-Ingredient Ointment 1 applic 04/07/17 10:00 04/08/17 22:17 Zinc Oxide TP 1 applic BID JUNIOR Administration Multivitamins/Minerals/Vitamin C 1 tab 04/07/17 10:00 04/08/17 09:41 Tab-A-Vit - PO 1 tab DAILY JUNIOR Administration Nicotine 14 mg 04/07/17 10:00 04/08/17 09:41 Nicoderm Patch - TD 14 mg DAILY JUNIOR Administration Nystatin 1 applic 04/07/17 10:00 04/08/17 22:17 Nystop Powder - TP 1 applic BID JUNIOR Administration Ondansetron HCl 8 mg 04/06/17 22:50 Zofran Odt - SL Q8H PRN NAUSEA AND/OR VOMITING Polyethylene Glycol 17 gm 04/06/17 22:50 04/08/17 22:14 Miralax (For Daily Use) - PO 17 gm DAILY PRN Administration CONSTIPATION Quetiapine Fumarate 300 mg 04/07/17 20:00 04/08/17 20:06 Seroquel Xr - PO 300 mg HS@2000 JUNIOR Administration Ranitidine HCl 150 mg 04/07/17 10:00 04/08/17 09:41 Zantac - PO 150 mg DAILY JUNIOR Administration Sertraline HCl 100 mg 04/07/17 10:00 04/08/17 22:15 Zoloft - PO 100 mg BID JUNIOR Administration Sodium Chloride 2 spray 04/06/17 22:50 04/07/17 21:54 [place] Nasal [place] - NS 2 spray BID PRN Administration NASAL CONGESTION Thiamine HCl 100 mg 04/07/17 10:00 04/08/17 09:41 Vitamin B1 - PO 100 mg DAILY JUNIOR Administration Home Medications Medication Instructions Recorded Amlodipine Besylate 10 mg PO DAILY 12/23/16 Atorvastatin Ca [Lipitor] 10 mg PO HS 12/23/16 Gabapentin 800 mg PO TID 12/23/16 Quetiapine Fumarate "Xr" [Seroquel 300 mg PO ACDIN 12/23/16 Xr -] Sertraline HCl [Zoloft] 100 mg PO BID 12/23/16 Folic Acid 1 mg PO DAILY 01/02/17 Allopurinol [Zyloprim -] 100 mg PO DAILY 02/12/17 Aspirin [ASA -] 81 mg PO DAILY 02/12/17 PE: per resident's note ASSESSMENT AND PLAN: Patient is a 56 y/o gentleman with h/o Nicotine dependence, HTN, CAD s/p Stenting , hyperlipidemia and recently diagnosed R lung adenocarcinoma who presented for pulmonary resection. Also was found to have laryngeal SCC , now s/ p laryngectomy and flap reconstruction # Laryngeal SCC s/p larynegectomy (performed by Dr. Dejon Bledsoe from [place] at [facility]) with flap reconstruction given 1x dose of chemo, discussed with oncologist regarding the care for the patient. Plan Rtx/Chemo. Patient is going to rehab. due to social service circumstances and needing therapy to maximize his restorative therapy. If patient is unable to tolerate PO nutrition while getting radiation, then a feeding tube has to re-initiated. The patient is being transferred to [facility] and will be restarting his adjuvant chemo/RT treatment once he has received restorative therapy. Once completes his physical therapy x 2 weeks , patient will restart his chemo/ RTx therapy. # Acute hypoxic resp failure resolved. s/p trach.Cont O2 through trach # Acute delirium. improved. cont librium at 10 qHS in a trial to wean off as tolerated , cont seroquel 300 xr.and Welbutryn # HTN -cont norvasc and Metoprolol. # CAD: aspirin # Nicotine dependence : nicotine patch . DVT px with heparin
--- NOTE | 2017-04-09 08:54 | PN ---
Physical Exam: SUBJECTIVE: Patient seen and examined. No events overnight w/o sitter. Offers no complaints. Eating and drinking well. No numbness or tingling in extremities. No BM in 4 days. OBJECTIVE: Vital Signs Period Temp Pulse Resp BP Sys/Clay Pulse Ox Last 24 Hr 97.3 F-98.1 F 63-93 20-20 92-123/50-72 96-96 GENERAL: nad, aaox3 NECK: Trachea midline, supple, trach collar sutured in place, well healing scar LUNGS: CTAB, no wheezes, crackles, or accessory muscle use HEART: rrr, normal s1/s2, no m/r/g, no JVD ABDOMEN: soft, ndnt, PEG sutured in place EXTREMITIES: wwp, no edema, 2+ DP, b/l thigh flap sites c/d/i Laboratory Results - last 24 hr 04/08/17 06:00 Thyroid Peroxidase Ab 14 Active Medications Acetylcysteine (Mucomyst 20 Oral / Inh Use Only*) 600 mg NEB TIDR [facility] Last Admin: 04/09/17 07:10 Dose: 600 mg Albuterol Sulfate (Ventolin 0.083% Nebulizer Soln -) 1 amp NEB Q6H PRN PRN Reason: WHEEZING Last Admin: 04/09/17 07:10 Dose: 1 amp Albuterol Sulfate (Ventolin 0.5% -) 1 amp NEB Q4H PRN PRN Reason: SHORT OF BREATH/WHEEZING Last Admin: 04/06/17 23:30 Dose: 1 amp Allopurinol (Zyloprim -) 100 mg PO DAILY [facility] Last Admin: 04/08/17 09:41 Dose: 100 mg Amlodipine Besylate (Norvasc -) 10 mg PO DAILY [facility] Last Admin: 04/08/17 09:41 Dose: 10 mg Aspirin (Asa -) 81 mg PO DAILY [facility] Last Admin: 04/08/17 09:41 Dose: 81 mg Bacitracin (Bacitracin -) 1 applic TP BID [facility] Last Admin: 04/08/17 22:16 Dose: 1 applic Chlordiazepoxide HCl (Librium -) 15 mg PO HS [facility] Last Admin: 04/08/17 22:15 Dose: 15 mg Docusate Sodium (Colace Liquid -) 100 mg PO DAILY PRN PRN Reason: CONSTIPATION Folic Acid (Folic Acid -) 1 mg PO DAILY [facility] Last Admin: 04/08/17 09:41 Dose: 1 mg Gabapentin (Neurontin -) 400 mg PO TID [facility] Last Admin: 04/09/17 06:13 Dose: 400 mg Heparin Sodium (Porcine) (Heparin -) 5,000 unit SQ TID [facility] Last Admin: 04/09/17 06:13 Dose: 5,000 unit Ibuprofen (Motrin -) 400 mg PO Q6H PRN PRN Reason: PAIN Metoprolol Tartrate (Lopressor -) 25 mg PO BID [facility] Last Admin: 04/08/17 22:15 Dose: 25 mg Multi-Ingredient Lotion (Eucerin (Large Jar) -) 1 applic TP DAILY PRN PRN Reason: DRY SKIN Multi-Ingredient Ointment (Zinc Oxide) 1 applic TP BID [facility] Last Admin: 04/08/17 22:17 Dose: 1 applic Multivitamins/Minerals/Vitamin C (Tab-A-Vit -) 1 tab PO DAILY [facility] Last Admin: 04/08/17 09:41 Dose: 1 tab Nicotine (Nicoderm Patch -) 14 mg TD DAILY [facility] Last Admin: 04/08/17 09:41 Dose: 14 mg Nystatin (Nystop Powder -) 1 applic TP BID [facility] Last Admin: 04/08/17 22:17 Dose: 1 applic Ondansetron HCl (Zofran Odt -) 8 mg SL Q8H PRN PRN Reason: NAUSEA AND/OR VOMITING Polyethylene Glycol (Miralax (For Daily Use) -) 17 gm PO DAILY PRN PRN Reason: CONSTIPATION Last Admin: 04/08/17 22:14 Dose: 17 gm Quetiapine Fumarate (Seroquel Xr -) 300 mg PO HS@2000 [facility] Last Admin: 04/08/17 20:06 Dose: 300 mg Ranitidine HCl (Zantac -) 150 mg PO DAILY [facility] Last Admin: 04/08/17 09:41 Dose: 150 mg Sertraline HCl (Zoloft -) 100 mg PO BID [facility] Last Admin: 04/08/17 22:15 Dose: 100 mg Sodium Chloride ([place] Nasal [place] -) 2 spray NS BID PRN PRN Reason: NASAL CONGESTION Last Admin: 04/07/17 21:54 Dose: 2 spray Thiamine HCl (Vitamin B1 -) 100 mg PO DAILY [facility] Last Admin: 04/08/17 09:41 Dose: 100 mg ASSESSMENT/PLAN: 56yo M with PMH of nicotine dependence, CAD (s/p 2x stents), htn, hld, gout, Right lung adenocarcinoma s/p resection, and 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 #Laryngeal SCC -s/p 1st round of Cisplatin with IVF pre and post treatments -Monitor labs, signs ototoxicity, neuropathy #Acute intermittent delirium, improving, 1:1 sitter d/c yesterday -Cont Librium 10mg HS -Seroquel 300mg #Acute hypoxic respiratory failure, resolved -Trach collar sutured in place, 50% FiO2, cont sunctioning PRN -Mucomyst with albuterol nebs #? Hypothyroidism, repeat TSH 6.63 --> 0.94 -Endocrine consulted. Risk of hypothyroidism s/p RT can be as high as 40%. -Repeat TFTs tomorrow #Constipation -Miralax BID, colace qd, and dulcolax suppository #HTN - Norvasc and Lopressor #CAD - ASA #Gout - Allopurinol #Nicotine dependence - nicoderm patch 14mg #FEN: Hold IVFs/ lytes wnl / Soft diet #PPX -DVT - Heparin TID -GI - Zantac -PT - increased to BID -RT daily DISPO: continue 7W for chemo/radiation therapy DNR/DNI d/w Dr. Agnes Mc MD PGY1- Internal Medicine Visit type - Emergency Visit Emergency Visit: No - New Patient This patient is new to me today: No - Critical Care Critical Care patient: No
[2017-04-09] MEDS ORDERED: BISACODYL 10 MG SUPP.RECT RC ONE ×2 (10:00→15:30)
[2017-04-09] MEDS ORDERED: POLYETHYLENE GLYCOL 3350 119 GM BTL PO SCH (10:00)
[2017-04-09] MEDS ORDERED: DOCUSATE NA 100 MG/10 ML UNIT-DOSE CUPS PO SCH (10:00)
--- NOTE | 2017-04-09 10:35 | PN ---
Progress Note (short form) - Note Progress Note: NAD on Trach collar. NO CP or SOB. No acute events overnight. Intake & Output 04/06/17 04/07/17 04/08/17 04/09/17 23:59 23:59 23:59 23:59 Intake Total 1050 1840 890 150 Output Total 400 300 Balance 650 1540 890 150 Last Vital Signs Temp Pulse Resp BP Pulse Ox 97.3 F L 63 20 92/50 96 04/09/17 06:00 04/09/17 06:00 04/09/17 06:00 04/09/17 06:00 04/08/17 20:13 Active Medications Acetylcysteine (Mucomyst 20 Oral / Inh Use Only*) 600 mg NEB TIDR [facility] Last Admin: 04/09/17 07:10 Dose: 600 mg Albuterol Sulfate (Ventolin 0.083% Nebulizer Soln -) 1 amp NEB Q6H PRN PRN Reason: WHEEZING Last Admin: 04/09/17 07:10 Dose: 1 amp Albuterol Sulfate (Ventolin 0.5% -) 1 amp NEB Q4H PRN PRN Reason: SHORT OF BREATH/WHEEZING Last Admin: 04/06/17 23:30 Dose: 1 amp Allopurinol (Zyloprim -) 100 mg PO DAILY [facility] Last Admin: 04/08/17 09:41 Dose: 100 mg Amlodipine Besylate (Norvasc -) 10 mg PO DAILY [facility] Last Admin: 04/08/17 09:41 Dose: 10 mg Aspirin (Asa -) 81 mg PO DAILY [facility] Last Admin: 04/08/17 09:41 Dose: 81 mg Bacitracin (Bacitracin -) 1 applic TP BID [facility] Last Admin: 04/08/17 22:16 Dose: 1 applic Chlordiazepoxide HCl (Librium -) 15 mg PO HS [facility] Last Admin: 04/08/17 22:15 Dose: 15 mg Docusate Sodium (Colace Liquid -) 100 mg PO DAILY [facility] Folic Acid (Folic Acid -) 1 mg PO DAILY [facility] Last Admin: 04/08/17 09:41 Dose: 1 mg Gabapentin (Neurontin -) 400 mg PO TID [facility] Last Admin: 04/09/17 06:13 Dose: 400 mg Heparin Sodium (Porcine) (Heparin -) 5,000 unit SQ TID [facility] Last Admin: 04/09/17 06:13 Dose: 5,000 unit Ibuprofen (Motrin -) 400 mg PO Q6H PRN PRN Reason: PAIN Metoprolol Tartrate (Lopressor -) 25 mg PO BID [facility] Last Admin: 04/08/17 22:15 Dose: 25 mg Multi-Ingredient Lotion (Eucerin (Large Jar) -) 1 applic TP DAILY PRN PRN Reason: DRY SKIN Multi-Ingredient Ointment (Zinc Oxide) 1 applic TP BID [facility] Last Admin: 04/08/17 22:17 Dose: 1 applic Multivitamins/Minerals/Vitamin C (Tab-A-Vit -) 1 tab PO DAILY [facility] Last Admin: 04/08/17 09:41 Dose: 1 tab Nicotine (Nicoderm Patch -) 14 mg TD DAILY [facility] Last Admin: 04/08/17 09:41 Dose: 14 mg Nystatin (Nystop Powder -) 1 applic TP BID [facility] Last Admin: 04/08/17 22:17 Dose: 1 applic Ondansetron HCl (Zofran Odt -) 8 mg SL Q8H PRN PRN Reason: NAUSEA AND/OR VOMITING Polyethylene Glycol (Miralax (For Daily Use) -) 17 gm PO BID [facility] Quetiapine Fumarate (Seroquel Xr -) 300 mg PO HS@2000 [facility] Last Admin: 04/08/17 20:06 Dose: 300 mg Ranitidine HCl (Zantac -) 150 mg PO DAILY [facility] Last Admin: 04/08/17 09:41 Dose: 150 mg Sertraline HCl (Zoloft -) 100 mg PO BID [facility] Last Admin: 04/08/17 22:15 Dose: 100 mg Sodium Chloride ([place] Nasal [place] -) 2 spray NS BID PRN PRN Reason: NASAL CONGESTION Last Admin: 04/07/17 21:54 Dose: 2 spray Thiamine HCl (Vitamin B1 -) 100 mg PO DAILY [facility] Last Admin: 04/08/17 09:41 Dose: 100 mg Constitutional: Yes: Awake and Alert, NAD on Trach collar Eyes: Yes: WNL, Conjunctiva Clear, EOM Intact HENT: Yes: Trach intact Neck: Yes: Supple, Trachea Midline Cardiovascular: Yes: Regular Rate and Rhythm Respiratory: Yes: scattered rhonchi ...Inspection: Yes: WNL ...Clubbing: No Gastrointestinal: Yes: (+) NS, soft Renal/: Yes: WNL Musculoskeletal: Yes: WNL Extremities: Yes: WNL Edema: No Peripheral Pulses WNL: Yes Integumentary: Yes: WNL Neurological: Yes: WNL, Alert, Oriented ...Motor Strength: WNL Psychiatric: Yes: WNL, Alert, Oriented Labs: Laboratory Results - last 24 hr 04/08/17 06:00 Thyroid Peroxidase Ab 14 Problem List - Problems (1) Alcohol dependence Code(s): F10.20 - ALCOHOL DEPENDENCE, UNCOMPLICATED Qualifiers: Substance use status: with intoxication Complication of substance- induced condition: with unspecified complication Qualified Code(s): F10.229 - Alcohol dependence with intoxication, unspecified; F10.229 - Alcohol dependence with intoxication, unspecified; F10.229 - Alcohol dependence with intoxication, unspecified (2) COPD (chronic obstructive pulmonary disease) Code(s): J44.9 - CHRONIC OBSTRUCTIVE PULMONARY DISEASE, UNSPECIFIED Qualifiers : COPD type: unspecified COPD Qualified Code(s): J44.9 - Chronic obstructive pulmonary disease, unspecified; J44.9 - Chronic obstructive pulmonary disease, unspecified; J44.9 - Chronic obstructive pulmonary disease, unspecified; J44.9 - Chronic obstructive pulmonary disease, unspecified (3) Cough Code(s): R05 - COUGH (4) Lung cancer Code(s): C34.90 - MALIGNANT NEOPLASM OF UNSP PART OF UNSP BRONCHUS OR LUNG Qualifiers: Laterality: unspecified laterality Lung location: overlapping sites Qualified Code(s): C34.80 - Malignant neoplasm of overlapping sites of unspecified bronchus and lung; C34.80 - Malignant neoplasm of overlapping sites of unspecified bronchus and lung; C34.80 - Malignant neoplasm of overlapping sites of unspecified bronchus and lung; C34.80 - Malignant neoplasm of overlapping sites of unspecified bronchus and lung (5) Nicotine dependence Code(s): F17.200 - NICOTINE DEPENDENCE, UNSPECIFIED, UNCOMPLICATED (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: NSCLC - Adenocarcinoma s/p R VATS/Wedge Resection/CT placement now removed 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 HTN CAD Alcohol Abuse/Dependence Assessment/Plan Trach collar O2 BD TX PRN Enteral feeds SQ Heparin Chemo / RT per Oncology/Radiation Onc Dr Esquivel Problem List - Problems (1) Alcohol dependence Code(s): F10.20 - ALCOHOL DEPENDENCE, UNCOMPLICATED Qualifiers: Substance use status: with intoxication Complication of substance-induced condition: with unspecified complication Qualified Code(s): F10.229 - Alcohol dependence with intoxication, unspecified (2) Cough Code(s): R05 - COUGH (3) Lung cancer Code(s): C34.90 - MALIGNANT NEOPLASM OF UNSP PART OF UNSP BRONCHUS OR LUNG Qualifiers: Laterality: unspecified laterality Lung location: overlapping sites Qualified Code(s): C34.80 - Malignant neoplasm of overlapping sites of unspecified bronchus and lung (4) COPD (chronic obstructive pulmonary disease) Code(s): J44.9 - CHRONIC OBSTRUCTIVE PULMONARY DISEASE, UNSPECIFIED Qualifiers: COPD type: unspecified COPD Qualified Code(s): J44.9 - Chronic obstructive pulmonary disease, unspecified (5) Nicotine dependence Code(s): F17.200 - NICOTINE DEPENDENCE, UNSPECIFIED, UNCOMPLICATED
[2017-04-09] MEDS: RANITIDINE HCL 150 MG TABLET (FP) PO SCH (11:51)
[2017-04-09] MEDS: MULTIVITAMINS (DAILY MVI) TABLET (FP) PO SCH (11:51)
[2017-04-09] MEDS: SERTRALINE HCL 50 MG TABLET (FP) PO SCH (11:51)
[2017-04-09] MEDS: ALLOPURINOL 100 MG TABLET (FP) PO SCH (11:51)
[2017-04-09] MEDS: BACITRACIN 15 GM TUBE TOPICAL OINTMENT TP SCH (11:52)
[2017-04-09] MEDS: ASPIRIN 81 MG CHEWABLE TABLETS PO SCH (11:52)
[2017-04-09] MEDS: FOLIC ACID 1 MG TABLET (FP) PO SCH (11:52)
[2017-04-09] MEDS: NICOTINE 14 MG/24 HOURS TOPICAL PATCH TD SCH (11:53)
[2017-04-09] MEDS: ZINC OXIDE 20% TOPICAL OINTMENT 30 GM TUBE TP SCH (11:54)
[2017-04-09] MEDS: amLODIPine BESYLATE 10 MG TABLET (FP) PO SCH (11:54)
[2017-04-09] MEDS: NYSTATIN POWDER 100,000 UNITS/GM - 15 GM TOPICAL POWDER TP SCH (11:54)
[2017-04-09] MEDS: METOPROLOL TARTRATE 25 MG TABLET (FP) PO SCH (11:54)
[2017-04-09] MEDS: THIAMINE HCL 100 MG TABLET (FP) PO SCH (11:55)
--- NOTE | 2017-04-09 14:16 | PN ---
Progress Note (short form) - Note Progress Note: Patient seen and examined seen and examined events noted. seen by endocrine. participating in PT. Denies any complains , mouths that he is doing good O/E NAD,ECOG PS1 Neck trach collar on . CV: RRR Lungs: clear bilaterally Abd: soft, NT, ND , PEG in place Thigh: flap looks clean and dry, well healing No decub Last Vital Signs Temp Pulse Resp BP Pulse Ox 97.4 F L 93 H 20 110/62 96 04/08/17 09:00 04/08/17 09:00 04/08/17 09:00 04/08/17 09:00 04/08/17 09:00 CBC, BMP 04/08/17 06:00 04/08/17 06:00 Current Medications Generic Name Dose Route Start Last Admin Trade Name Freq PRN Reason Stop Dose Admin Acetylcysteine 600 mg 04/07/17 06:00 04/08/17 07:05 Mucomyst 20 Oral / Inh Use Only* NEB 600 mg TIDR JUNIOR Administration Albuterol Sulfate 1 amp 04/06/17 22:50 04/08/17 07:05 Ventolin 0.083% Nebulizer Soln - NEB 1 amp Q6H PRN Administration WHEEZING Albuterol Sulfate 1 amp 04/06/17 22:50 04/06/17 23:30 Ventolin 0.5% - NEB 1 amp Q4H PRN Administration SHORT OF BREATH/WHEEZING Allopurinol 100 mg 04/07/17 10:00 04/08/17 09:41 Zyloprim - PO 100 mg DAILY JUNIOR Administration Amlodipine Besylate 10 mg 04/07/17 10:00 04/08/17 09:41 Norvasc - PO 10 mg DAILY JUNIOR Administration Aspirin 81 mg 04/07/17 10:00 04/08/17 09:41 Asa - PO 81 mg DAILY JUNIOR Administration Bacitracin 1 applic 04/07/17 10:00 04/08/17 09:42 Bacitracin - TP 1 applic BID JUNIOR Administration Chlordiazepoxide HCl 15 mg 04/07/17 22:00 04/07/17 21:51 Librium - PO 15 mg HS JUNIOR Administration Docusate Sodium 100 mg 04/06/17 22:50 Colace Liquid - PO DAILY PRN CONSTIPATION Folic Acid 1 mg 04/07/17 10:00 04/08/17 09:41 Folic Acid - PO 1 mg DAILY JUNIOR Administration Gabapentin 400 mg 04/07/17 06:00 04/08/17 14:01 Neurontin - PO 400 mg TID JUNIOR Administration Heparin Sodium (Porcine) 5,000 unit 04/07/17 06:00 04/08/17 14:01 Heparin - SQ 5,000 unit TID JUNIOR Administration Ibuprofen 400 mg 04/06/17 22:50 Motrin - PO Q6H PRN PAIN Metoprolol Tartrate 25 mg 04/07/17 10:00 04/08/17 09:43 Lopressor - PO Not Given BID [facility]IOR Multi-Ingredient Lotion 1 applic 04/06/17 22:50 Eucerin (Large Jar) - TP DAILY PRN DRY SKIN Multi-Ingredient Ointment 1 applic 04/07/17 10:00 04/08/17 09:42 Zinc Oxide TP 1 applic BID JUNIOR Administration Multivitamins/Minerals/Vitamin C 1 tab 04/07/17 10:00 04/08/17 09:41 Tab-A-Vit - PO 1 tab DAILY JUNIOR Administration Nicotine 14 mg 04/07/17 10:00 04/08/17 09:41 Nicoderm Patch - TD 14 mg DAILY JUNIOR Administration Nystatin 1 applic 04/07/17 10:00 04/08/17 09:42 Nystop Powder - TP 1 applic BID JUNIOR Administration Ondansetron HCl 8 mg 04/06/17 22:50 Zofran Odt - SL Q8H PRN NAUSEA AND/OR VOMITING Polyethylene Glycol 17 gm 04/06/17 22:50 Miralax (For Daily Use) - PO DAILY PRN CONSTIPATION Quetiapine Fumarate 300 mg 04/07/17 20:00 04/07/17 20:15 Seroquel Xr - PO 300 mg HS@2000 JUNIOR Administration Ranitidine HCl 150 mg 04/07/17 10:00 04/08/17 09:41 Zantac - PO 150 mg DAILY JUNIOR Administration Sertraline HCl 100 mg 04/07/17 10:00 04/08/17 09:41 Zoloft - PO 100 mg BID JUNIOR Administration Sodium Chloride 2 spray 04/06/17 22:50 04/07/17 21:54 [place] Nasal [place] - NS 2 spray BID PRN Administration NASAL CONGESTION Thiamine HCl 100 mg 04/07/17 10:00 04/08/17 09:41 Vitamin B1 - PO 100 mg DAILY JUNIOR Administration 56 yo w 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 Ideally patient should be receiving weeklycis/daily RT as has been previously discussed , but message was received, presently, due to social service circumstances necessitating a change of plan and now pt to be considered for [facility] /SNF, would restart treatment once able to be seen from/after his brief SNF stay as per child welfare social worker.d/w hospitalist,credentials specialist, [place].
[2017-04-09 14:26] VITALS: BP 114/69; PULSE 69; TEMP 98.2
--- NOTE | 2017-04-09 17:01 | DS ---
Physical Exam: HOSPITAL COURSE: Date of Admission:02/11/17 Date of Discharge: 04/09/17 Patient is a 56 year old M with PMH of nicotine dependence, CAD (s/p 2x stents) , htn, hld, gout, Right lung adenocarcinoma s/p resection, and found to have Stage YUVAL T3N2c SCC of hypopharynx (left PS) s/p laryngopharyngectomy ( performed by Dr. Dejon Bledsoe at [place]), free flap reconstruction, and G- tube. He received 1 treatment of Cisplatin on 04/07/17. Ideally, patient requires adjuvant concurrent weekly chemotherapy and daily radiation therapy. However, due to social service circumstances and needed restorative therapy. The patient is being transferred to [facility] and will be restarting his adjuvant chemo/RT treatment once he has received restorative therapy. His other problems are addressed below: #Acute intermittent delirium, improving, no longer requires 1:1 sitter -Continue Librium 15mg HS -Seroquel 300mg #Acute hypoxic respiratory failure, resolved -Trach collar sutured in place, 50% FiO2, continue sunctioning PRN -Mucomyst with albuterol nebs #Possible hypothyroidism, however repeat TSH within 4 days went from 6.63 to 0.94. Endocrine has been consulted during his stay, and recommended that his TFTs be repeated as there is a risk of hypothyroidism s/p RT. #Constipation. Patient recently has not had a BM in 4 days. He should be continued on Miralax BID, colace qd, and dulcolax suppository PRN. #HTN - Well controlled don Norvasc and Lopressor. #CAD - Continue ASA daily #Gout - Well controlled with Allopurinol daily #Nicotine dependence - nicoderm patch 14mg #DVT PPX - He should be continued on Heparin 5000U TID. #GI PPX - Continue Zantac Reyna Mc MD PGY1 - Internal Medicine Minutes to complete discharge: 45 Discharge Summary Reason For Visit: MALIGNANT NEOPLASM OF LUNG Current Active Problems Alcohol dependence (Acute) Alcohol intoxication (Acute) COPD (chronic obstructive pulmonary disease) (Acute) Cough (Acute) Gastrostomy complication, unspecified (Acute) Laryngeal squamous cell carcinoma (Acute) Lung cancer (Acute) Metastatic disease (Acute) Nicotine dependence (Acute) Condition: Fair - Instructions Diet, Activity, Other Instructions: You were admitted to the hospital for lung surgery and during your stay needed to have a tracheostomy placed for breathing support. You were also found to have cancer of your larynx. -You will be going to [facility] for restorative therapy. -You will continue all of your medications that you were receiving at [facility] [place]. The staff at [facility] will administer your medications. -Your chemotherapy and radiation therapy will be restarted once your restorative therapy is completed. Referrals: Jaime Olivares MD [Staff Physician] - STAFF,NOT ON [Primary Care Provider] - Disposition: [facility] FACILITY - Home Medications Comprehensive Discharge Medication List: Ambulatory Orders Amlodipine Besylate 10 mg PO DAILY 12/23/16 Atorvastatin Ca [Lipitor] 10 mg PO HS 12/23/16 Gabapentin 800 mg PO TID 12/23/16 Sertraline HCl [Zoloft] 100 mg PO BID 12/23/16 Folic Acid 1 mg PO DAILY 01/02/17 Allopurinol [Zyloprim -] 100 mg PO DAILY 02/12/17 Aspirin [ASA -] 81 mg PO DAILY 02/12/17 Acetylcysteine Po/INH 20% [Mucomyst 20 Oral / INH Use Only*] 600 mg NEB TIDR #5 vial 04/09/17 Albuterol 0.083% Nebulizer Va [Ventolin 0.083% Nebulizer Soln -] 1 amp NEB Q6H PRN #120 amp 04/09/17 Albuterol Sulfate 0.5% [Ventolin 0.5% Nebulizing Soln. -] 1 amp NEB Q4H PRN # 180 amp 04/09/17 Amlodipine Besylate [Norvasc -] 10 mg PO DAILY #30 tablet 04/09/17 Bacitracin - [Bacitracin Topical Ointment -] 1 applic TP BID #4 tube 04/09/17 Chlordiazepoxide [Librium -] 15 mg PO HS #30 capsule MDD 15 04/09/17 Gabapentin [Neurontin -] 400 mg PO TID #90 capsule 04/09/17 Heparin - 5,000 unit SQ TID #1 vial 04/09/17 Ibuprofen [Motrin -] 400 mg PO Q6H PRN #120 tablet 04/09/17 Metoprolol Tartrate [Lopressor -] 25 mg PO BID #60 tablet 04/09/17 Mineral Oil/Petrolat,Wht/Water [Eucerin (Large Jar) -] 1 applic TP DAILY PRN #1 jar 04/09/17 Multivitamins [Multivit ([facility] Formul[facility])] 1 tab PO DAILY #30 tab 04/09/17 Nicotine Patch [Nicoderm Patch -] 14 mg TD DAILY #30 patch 04/09/17 Nystatin Powder [Nystop Powder -] 1 applic TP BID #1 applic 04/09/17 Ondansetron [Zofran Odt -] 8 mg SL Q8H PRN #90 tab.rapdis 04/09/17 Polyethylene Glycol 3350 [Miralax 119 gm Btl -] 17 gm PO DAILY PRN #4 bottle Quetiapine Fumarate "Xr" [Seroquel XR] 300 mg PO HS@2000 #30 tablet 04/09/17 Sodium Chloride Nasal [place] [[place] Nasal [place] -] 2 spray NS BID PRN #1 spray 04/09/17 Thiamine HCl [Vitamin B1 -] 100 mg PO DAILY #30 tablet 04/09/17 Zinc Oxide 1 applic TP BID #3 tube 04/09/17 This patient is new to me today: No Emergency Visit: No Critical Care patient: No - Discharge Referral Referred to [facility] No
== END 2017-04-09 18:40 | DRG 4 ==
LOC: JER 09:09 → JERBED 11:19 → J7W 18:14 → JICU 02-16 13:37 → J8W 02-17 19:53 → JSAMEDAYSX 02-20 08:00 → JICU 02-20 20:11 → J4W 03-06 18:53 → J5S 03-09 22:45 → J7W 04-06 21:35
PROVIDERS: ADMIT Internal Medicine; ATTEND Internal Medicine
PROC: 0CBS8ZX Excision of Larynx, Via Natural or Artificial Opening Endoscopic, Diagnostic (ICD-10-PCS; 2017-02-11)
PROC: 0CBM8ZX Excision of Pharynx, Via Natural or Artificial Opening Endoscopic, Diagnostic (ICD-10-PCS; 2017-02-11)
PROC: HZ2ZZZZ Detoxification Services for Substance Abuse Treatment (ICD-10-PCS; 2017-02-11)
PROC: 0BBC8ZX Excision of Right Upper Lung Lobe, Via Natural or Artificial Opening Endoscopic, Diagnostic (ICD-10-PCS; 2017-02-16)
PROC: 0W9930Z Drainage of Right Pleural Cavity with Drainage Device, Percutaneous Approach (ICD-10-PCS; 2017-02-16)
PROC: 0CTS0ZZ Resection of Larynx, Open Approach (ICD-10-PCS; 2017-02-19)
PROC: 5A1945Z Respiratory Ventilation, 24-96 Consecutive Hours (ICD-10-PCS; 2017-02-20)
PROC: 0B110F4 Bypass Trachea to Cutaneous with Tracheostomy Device, Open Approach (ICD-10-PCS; 2017-02-20)
PROC: 07T20ZZ Resection of Left Neck Lymphatic, Open Approach (ICD-10-PCS; 2017-02-20)
PROC: 07T10ZZ Resection of Right Neck Lymphatic, Open Approach (ICD-10-PCS; 2017-02-20)
PROC: 0HR Skin and Breast, Replacement (ICD-10-PCS; 2017-02-20)
PROC: 0HBJXZZ Excision of Left Upper Leg Skin, External Approach (ICD-10-PCS; 2017-02-20)
PROC: 0HBHXZZ Excision of Right Upper Leg Skin, External Approach (ICD-10-PCS; 2017-02-20)
PROC: 0B918ZZ Drainage of Trachea, Via Natural or Artificial Opening Endoscopic (ICD-10-PCS; 2017-02-20)
PROC: 0DH63UZ Insertion of Feeding Device into Stomach, Percutaneous Approach (ICD-10-PCS; 2017-02-20)
PROC: 3E0G76Z Introduction of Nutritional Substance into Upper GI, Via Natural or Artificial Opening (ICD-10-PCS; 2017-02-20)
PROC: 5A1955Z Respiratory Ventilation, Greater than 96 Consecutive Hours (ICD-10-PCS; principal; 2017-02-20 08:00)
PROC: 0D20XUZ Change Feeding Device in Upper Intestinal Tract, External Approach (ICD-10-PCS; 2017-03-09)
PROC: 0B21XFZ Change Tracheostomy Device in Trachea, External Approach (ICD-10-PCS; 2017-03-15)
PROC: 0BW18FZ Revision of Tracheostomy Device in Trachea, Via Natural or Artificial Opening Endoscopic (ICD-10-PCS; 2017-03-23)
PROC: [UNRECOGNIZED PROCEDURE] (2017-03-23)
PROC: 3E0 Administration, Physiological Systems and Anatomical Regions, Introduction (ICD-10-PCS; 2017-04-07)
DX: C12 Malignant neoplasm of pyriform sinus (principal); J96.01 Acute respiratory failure with hypoxia; N17.9 Acute kidney failure, unspecified; E87.0 Hyperosmolality and hypernatremia; J44.9 Chronic obstructive pulmonary disease, unspecified; C77.1 Secondary and unspecified malignant neoplasm of intrathoracic lymph nodes; Z78.1 Physical restraint status; D62 Acute posthemorrhagic anemia; Z93.0 Tracheostomy status; E83.42 Hypomagnesemia; E87.1 Hypo-osmolality and hyponatremia; E83.39 Other disorders of phosphorus metabolism; C34.11 Malignant neoplasm of upper lobe, right bronchus or lung; C34.80 Malignant neoplasm of overlapping sites of unspecified bronchus and lung; K94.23 Gastrostomy malfunction; Z85.118 Personal history of other malignant neoplasm of bronchus and lung; I25.10 Atherosclerotic heart disease of native coronary artery without angina pectoris; E87.6 Hypokalemia; F10.229 Alcohol dependence with intoxication, unspecified; D72.829 Elevated white blood cell count, unspecified; F32.9 Major depressive disorder, single episode, unspecified; F41.9 Anxiety disorder, unspecified; I10 Essential (primary) hypertension; Z95.5 Presence of coronary angioplasty implant and graft; E78.5 Hyperlipidemia, unspecified; Z96.641 Presence of right artificial hip joint; S89.82XA Other specified injuries of left lower leg, initial encounter; W07.XXXA Fall from chair, initial encounter; Y93.89 Activity, other specified; Y92.238 Other place in hospital as the place of occurrence of the external cause; Y99.8 Other external cause status; F17.210 Nicotine dependence, cigarettes, uncomplicated; Z66 Do not resuscitate; R45.1 Restlessness and agitation; T17.290A Other foreign object in pharynx causing asphyxiation, initial encounter; M79.5 Residual foreign body in soft tissue; R50.9 Fever, unspecified; Y83.3 Surgical operation with formation of external stoma as the cause of abnormal reaction of the patient, or of later complication, without mention of misadventure at the time of the procedure; R11.10 Vomiting, unspecified; M1A.9XX0 Chronic gout, unspecified, without tophus (tophi); E66.9 Obesity, unspecified; R41.0 Disorientation, unspecified; Z68.28 Body mass index [BMI] 28.0-28.9, adult
CPT/HCPCS: 36415; 36600; 70150-TC; 70200-TC; 70260-TC; 70360-TC; 70450-TC; 70470-TC; 70491-TC; 71010-TC; 72100-TC; 73030-TC-LT; 73030-TC-RT; 73070-TC-LT; 73070-TC-RT; 73110-TC-LT; 73110-TC-RT; 73130-TC-LT; 73130-TC-RT; 73560-TC-LT; 73560-TC-RT; 73706-TC-RT; 74000-TC; 80048; 80053; 80076; 80307; 81003; 82140; 82330; 82550; 82607; 82728; 82746; 82803; 83036; 83540; 83550; 83605; 83615; 83690; 83735; 84100; 84132; 84439; 84443; 84466; 84484; 85025; 85027; 85610; 85730; 86376; 86850; 86900; 86901; 86922; 87040; 87086; 87186; 87205; 88305-TC; 88307-TC; 88309-TC; 88331-TC; 88341-TC; 93005; 93010; 93306-TC; 94002; 94010; 94640; 94760; 96361; 96367; 96375; 97116-GP; 97161-GP; 99285-25; J1453; J1644

== ENCOUNTER 2017-04-11 09:17 | Emergency (ER) | payer OTHER ==
--- NOTE | 2017-04-11 09:41 | PDOC ---
History of Present Illness <Sunday Colón - Last Filed: 04/11/17 14:32> - General History Source: Patient Exam Limitations: No Limitations - History of Present Illness Initial Comments: This is a 56 YOM with h/o recent laryngopharyngectomy and tracheostomy tube and G-tube placement for squamous cell carcinoma of the hypopharynx (multiple procedures in February 2017), lung adenocarcinoma s/p resection, CAD (s/p stent x2), HTN, HLD, gout, long-term cigarette smoking, and long-term alcohol dependence. He is BIBA this morning because his tracheostomy tube became dislodged. He does not know how this happened but called 911 for difficulty breathing. They used the BVM over the tracheostomy site en route. The patient denies any pain or additional symptoms. <Elise Salcido - Last Filed: 04/12/17 14:33> - General Chief Complaint: Trach Tube Replacement Stated Complaint: TRACH DISLODGEMENT Time Seen by Provider: 04/11/17 09:33 Past History <Sunday Colón - Last Filed: 04/11/17 14:32> - Past Medical History Cardiac Disorders: Yes (CAD) COPD: Yes GI Disorders: Yes (h/o GI Bleed) Disorders: No HTN: Yes Hypercholesterolemia: Yes Liver Disease: No Psychiatric Problems: Yes (DEPRESSION, ANXIETY) Thyroid Disease: No - Surgical History Cardiac Surgery: Yes (cardiac stents ~ 2014) Orthopedic Surgery: Yes (RIGHT HIP REPLACEMENT) - Suicide/Smoking/Psychosocial Hx Smoking History: Former smoker Have you smoked in the past 12 months: Yes Number of Cigarettes Smoked Daily: 6 If you are a former smoker, when did you quit?: 6 'Breaking Loose' booklet given: 02/11/17 Hx Alcohol Use: Yes Drug/Substance Use Hx: Yes Substance Use Type: None Hx Substance Use Treatment: Yes <Elise Salcido - Last Filed: 04/12/17 14:33> - Past Medical History Allergies/Adverse Reactions: Allergies Allergy/AdvReac Type Severity Reaction Status Date / Time No Known Drug Allergies Allergy Verified 04/11/17 09:39 Home Medications: Ambulatory Orders Amlodipine Besylate 10 mg PO DAILY 12/23/16 Atorvastatin Ca [Lipitor] 10 mg PO HS 12/23/16 Gabapentin 800 mg PO TID 12/23/16 Sertraline HCl [Zoloft] 100 mg PO BID 12/23/16 Folic Acid 1 mg PO DAILY 01/02/17 Allopurinol [Zyloprim -] 100 mg PO DAILY 02/12/17 Aspirin [ASA -] 81 mg PO DAILY 02/12/17 Acetylcysteine Po/INH 20% [Mucomyst 20 Oral / INH Use Only*] 600 mg NEB TIDR #5 vial 04/09/17 Albuterol 0.083% Nebulizer Va [Ventolin 0.083% Nebulizer Soln -] 1 amp NEB Q6H PRN #120 amp 04/09/17 Albuterol Sulfate 0.5% [Ventolin 0.5% Nebulizing Soln. -] 1 amp NEB Q4H PRN # 180 amp 04/09/17 Amlodipine Besylate [Norvasc -] 10 mg PO DAILY #30 tablet 04/09/17 Bacitracin - [Bacitracin Topical Ointment -] 1 applic TP BID #4 tube 04/09/17 Chlordiazepoxide [Librium -] 15 mg PO HS #30 capsule MDD 15 04/09/17 Gabapentin [Neurontin -] 400 mg PO TID #90 capsule 04/09/17 Heparin - 5,000 unit SQ TID #1 vial 04/09/17 Ibuprofen [Motrin -] 400 mg PO Q6H PRN #120 tablet 04/09/17 Metoprolol Tartrate [Lopressor -] 25 mg PO BID #60 tablet 04/09/17 Mineral Oil/Petrolat,Wht/Water [Eucerin (Large Jar) -] 1 applic TP DAILY PRN #1 jar 04/09/17 Multivitamins [Multivit ([facility] Formulary)] 1 tab PO DAILY #30 tab 04/09/17 Nicotine Patch [Nicoderm Patch -] 14 mg TD DAILY #30 patch 04/09/17 Nystatin Powder [Nystop Powder -] 1 applic TP BID #1 applic 04/09/17 Ondansetron [Zofran Odt -] 8 mg SL Q8H PRN #90 tab.rapdis 04/09/17 Polyethylene Glycol 3350 [Miralax 119 gm Btl -] 17 gm PO DAILY PRN #4 bottle Quetiapine Fumarate "Xr" [Seroquel XR] 300 mg PO HS@2000 #30 tablet 04/09/17 Sodium Chloride Nasal [place] [[place] Nasal [place] -] 2 spray NS BID PRN #1 spray 04/09/17 Thiamine HCl [Vitamin B1 -] 100 mg PO DAILY #30 tablet 04/09/17 Zinc Oxide 1 applic TP BID #3 tube 04/09/17 Levofloxacin [Levaquin] 750 mg PO DAILY #7 tablet 04/11/17 Review of Systems - Review of Systems Able to Perform ROS?: Yes Constitutional: No: Chills, Fever, Unexplained wgt Loss HEENTM: No: Nose Congestion, Throat Pain Respiratory: Yes: Other (difficulty breathing, trach tube dislodged). No: Cough Cardiac (ROS): No: Chest Pain, Palpitations ABD/GI: No: Constipated, Diarrhea, Nausea, Vomiting : No: Burning, Dysuria Musculoskeletal: No: Back Pain, Neck Pain Integumentary: No: Bruising, Rash Neurological: No: Headache, Numbness, Tingling, Weakness, Dizziness Endocrine: No: Unexplained Weight Gain, Unexplained Weight Loss <Elise Salcido - Last Filed: 04/12/17 14:33> *Physical Exam - Vital Signs Last Vital Signs Temp Pulse Resp BP Pulse Ox 97.9 F 77 24 129/85 98 04/11/17 09:39 04/11/17 10:00 04/11/17 09:39 04/11/17 09:39 04/11/17 10:00 <Sunday Colón - Last Filed: 04/11/17 14:32> - Physical Exam General Appearance: Yes: Nourished, Mild Distress, Other (pleasant but anxious adult male, interavtive but unable to phonate, mouths answers to questions appropriately) HEENT: positive: EOMI, SADIA, Normal Voice, Hearing Grossly Normal, Other ( tracheostomy without trach tube in place). negative: Scleral Icterus (R), Scleral Icterus (L), Nasal Congestion Neck: positive: Trachea midline, Supple, Other (tracheostomy without trach tube in place). negative: Tender, Rigid Respiratory/Chest: positive: Lungs Clear, Normal Breath Sounds, Respiratory Distress (mild), Crackles (coarse), Other (coughs up phlegm). negative: Rhonchi , Stridor, Wheezing Cardiovascular: positive: Regular Rhythm, Regular Rate. negative: Murmur Gastrointestinal/Abdominal: positive: Normal Bowel Sounds, Soft. negative: Tender, Organomegaly, Pulsatile Mass, Guarding Musculoskeletal: positive: Normal Inspection. negative: Decreased Range of Motion, Vertebral Tenderness Extremity: positive: Normal Capillary Refill, Normal Inspection, Normal Range of Motion. negative: Tender, Cyanosis Integumentary: positive: Normal Color, Dry, Warm. negative: Erythema, Rash, Bruising Neurologic: positive: machine worker II-XII NML intact, Fully Oriented, Alert, Normal Mood/ Affect, Normal Response, Motor Strength 5/5 <Elise Salcido - Last Filed: 04/12/17 14:33> ED Treatment Course - Medications Given in the ED: ED Medications Discontinued Medications Generic Name Dose Route Start Last Admin Trade Name Freq PRN Reason Stop Dose Admin Levofloxacin 750 mg 04/11/17 10:09 04/11/17 10:40 Levaquin - GT 04/11/17 10:10 750 mg ONCE ONE Administration <Sunday Colón - Last Filed: 04/11/17 14:32> - RADIOLOGY Radiology Studies Ordered: Category Date Time Status CHEST PA & LAT [RAD] Stat Radiology 04/11/17 09:39 Ordered <Elise Salcido - Last Filed: 04/12/17 14:33> Medical Decision Making - Critical Care Time Total Critical Care Time (minutes): 30 Critical Care Statement: The care of this patient involved high complexity decision making to prevent further life threatening deterioration of the patient 's condition and/or to evaluate & treat vital organ system(s) failure or risk of failure. <Sunday Colón - Last Filed: 04/11/17 14:32> - Medical Decision Making 56M with multiple surgeries in the past 2 months for SCC of throat, trach placed , p/w dislodged trach. On exam his resp rate is 24 but otherwise VS wnl, patient appears anxious. Course breath sounds and patient is coughing up phlegm. Trach is replaced with a size 6, inserts without complication, minimal blood coughed up with phlegm subsequently. Ordered is CXR. 04/11/17 10:41 CXR notable for likely early PNA and levofloxacin is ordered. Patient is appropriate for discharge back to care facility with E-Rx for levofloxacin sent. Prior EKG checked and patient did not have QTc prolongation earlier this month. Return precautions are discussed. <Elise Salcido - Last Filed: 04/12/17 14:33> *DC/Admit/Observation/Transfer <Sunday Colón - Last Filed: 04/11/17 14:32> - Discharge Dispostion Admit: No <Elise Salcido - Last Filed: 04/12/17 14:33> Diagnosis at time of Disposition: Pneumonia Qualifiers: Pneumonia type: due to unspecified organism Laterality: left Lung location: lower lobe of lung Qualified Code(s): J18.1 - Lobar pneumonia, unspecified organism - Discharge Dispostion Disposition: NURSING HOME FACILITY Condition at time of disposition: Stable - Prescriptions Prescriptions: Levofloxacin [Levaquin] 750 mg PO DAILY #7 tablet - Patient Instructions Additional Instructions: You were seen in the ER after your trach tube became dislodged and fell out. We replaced the tube without issue and took a chest x-ray. The chest x-ray showed a likely pneumonia and we gave you a dose of levaquin antibiotic here in the department. Please take levaquin 750 mg once daily for a week at your care facility. Return for any new or worsening symptoms like difficulty breathing, fever you cannot control with medications, dizziness, passing out, bleeding from the trach tube, or other symptoms.
[2017-04-11 09:44] VITALS: BP 129/85; PULSE 77; TEMP 97.9; BMI 34.9
--- NOTE | 2017-04-11 09:45 | PDOC ---
Attending Attestation - Resident Resident Name: Elise Salcido - ED Attending Attestation I have performed the following: I have examined & evaluated the patient, The case was reviewed & discussed with the resident, I agree w/resident's findings & plan, Exceptions are as noted - HPI HPI: 04/11/17 09:49 56 year old M with PMH of SCC of hypopharynx s/p resection and trach, CAD s/p 2x stents, HTN, HL, gout, right lung adenocarcinoma s/p resectionPresents with trach dislodgment. EMS is unsure how the trach fell out. He normally has an 8.0 cuffed trach. An attempt was made to replace the trach with a smaller size, but was unsuccessful. EMS is unsure of when trach was placed, according to our EMR, some time in early February. Pt was being bagged through trach on arrival, in no distress, satting 100%. A 6.0 cuffed tube was passed successfully through the tract, cuff inflated. Obturator removed, inner cannula replaced, pt suctioned with some yellow-white secretions. Respiratory at bedside, secured the trach, pt placed on trach collar, 50% as he was in the hospital during recent admission, currently satting 100% in no resp distress. Pt denies fevers, chills, CP, abd pain, focal weakness/numbness. - Physicial Exam PE: 04/11/17 10:13 GENERAL: Awake, alert, in no acute distress HEAD: No signs of trauma EYES: PERRLA, EOMI, sclera anicteric, conjunctiva clear ENT: Auricles normal inspection, hearing grossly normal, nares patent, oropharynx clear without exudates. Moist mucosa NECK: trach in place, no bleeding. +yellow secretions LUNGS: Breath sounds equal, clear to auscultation bilaterally. No wheezes, and no crackles HEART: Regular rate and rhythm, normal S1 and S2, no murmurs, rubs or gallops ABDOMEN: G tube in place with no erythema or ttp. soft, nontender, normoactive bowel sounds. No guarding, no rebound. No masses EXTREMITIES: Normal range of motion, no edema. No clubbing or cyanosis. No cords, erythema, or tenderness NEUROLOGICAL: cranial nerves grossly intact, able to mouth words to communicate , moving all four extremities SKIN: Warm, Dry, normal turgor, no rashes or lesions noted. - Medical Decision Making 04/11/17 10:25 56-year-old male with multiple medical problems presents to emergency department after trach dislodgment. Trach replaced with no complications, patient is satting 100% on trach collar, 50%. He is not tachypneic and not in any distress. Chest x-ray reveals a possible very early infiltrate versus atelectasis. Patient is afebrile and denies weakness, fevers, however given his complicated medical history, will treat with Levaquin through the G-tube and give strict return precautions. I discussed the physical exam findings, ancillary test results and final diagnoses with the patient. I answered all of the patient's questions. The patient was satisfied with the care received and felt comfortable with the discharge plan and treatment plan. The patient will return to the Emergency Department with any new, persistent or worsening symptoms.
[2017-04-11] MEDS ORDERED: LEVOFLOXACIN 250 MG TABLET (FP) GT ONE (10:09)
[2017-04-11] MEDS ORDERED: LEVOFLOXACIN 250 MG TABLET (FP) ONE (10:16)
== END 2017-04-11 12:38 ==
LOC: JER 09:17
DX: J95.09 Other tracheostomy complication (principal); J18.1 Lobar pneumonia, unspecified organism; I25.10 Atherosclerotic heart disease of native coronary artery without angina pectoris; I10 Essential (primary) hypertension; Z95.5 Presence of coronary angioplasty implant and graft; Z87.891 Personal history of nicotine dependence; F10.20 Alcohol dependence, uncomplicated; E78.00 Pure hypercholesterolemia, unspecified; M10.9 Gout, unspecified; C34.90 Malignant neoplasm of unspecified part of unspecified bronchus or lung; C76.8 Malignant neoplasm of other specified ill-defined sites; C79.89 Secondary malignant neoplasm of other specified sites; F41.8 Other specified anxiety disorders; Z87.442 Personal history of urinary calculi; Z96.641 Presence of right artificial hip joint; Z93.1 Gastrostomy status
CPT/HCPCS: 71020-TC; 99283-25

== ENCOUNTER 2017-04-16 07:12 | Inpatient (IN) | payer OTHER ==
[2017-04-16] MEDS ORDERED: PIPERACILLIN/TAZOB 4.5 GM/100 ML PRE-DOCKED IVPB ONE (07:33)
--- NOTE | 2017-04-16 07:37 | PDOC ---
Attending Attestation - HPI HPI: 04/16/17 07:52 Pt is a 56 yo M resident from [facility] with a PMHx of HLD, COPD, Lung CA, G tube, Tracheostomy tube who presents to the ED in respiratory distress. As per EMS, patients tracheostomy tube had fallen out and patient appeared cyanotic. EMS repositioned tracheostomy tube and brought the patient to the ED for further evaluation. Upon arrival to the ED, patient continued to be in respiratory distress. Patients vital signs significant for 2% O2 saturation and bradycardia at 30 bpm. PCP: Dr. Sherman - Physicial Exam PE: 04/16/17 07:52 GENERAL: +respiratory distress. +Ill appearing. HEAD: No signs of trauma EYES: PERRLA, EOMI, sclera anicteric, conjunctiva clear ENT: Auricles normal inspection, hearing grossly normal, nares patent, oropharynx clear without exudates. Moist mucosa NECK: Normal ROM, supple, no lymphadenopathy, JVD, or masses. +Trach stoma is clean dry and intact. LUNGS: +Tachypneic. Breath sounds equal, clear to auscultation bilaterally. No wheezes, and no crackles HEART: +Bradycardic. normal S1 and S2, no murmurs, rubs or gallops ABDOMEN: Soft, nontender, normoactive bowel sounds. No guarding, no rebound. No masses EXTREMITIES: Normal range of motion, no edema. No clubbing or cyanosis. No cords, erythema, or tenderness NEUROLOGICAL: Cranial nerves II through XII grossly intact. SKIN: Warm, Dry, normal turgor, no rashes or lesions noted. +cyanotic. - Medical Decision Making 04/16/17 07:52 Documentation prepared by Jenny Garcia, acting as medical collections specialist for Felix Spencer MD, /DO. <Jenny Garcia - Last Filed: 04/16/17 07:52> - Resident Resident Name: Juan Cordero - ED Attending Attestation I have performed the following: I have examined & evaluated the patient, The case was reviewed & discussed with the resident, I agree w/resident's findings & plan, Exceptions are as noted - Critical Care Time Total Critical Care Time: 40 Critical Care Statement: The care of this patient involved high complexity decision making to prevent further life threatening deterioration of the patient 's condition and/or to evaluate & treat vital organ system(s) failure or risk of failure. - Medical Decision Making 04/16/17 07:28 A portion of this note was written by my scribe, under my supervision. 56-year-old male with history of hypertension, COPD, lung cancer, G-tube, tracheostomy presents to the emergency department for respiratory distress. The patient was at [facility] when his tracheostomy was displaced. A tracheostomy was replaced but the patient continue have respiratory distress. 911 was called patient's brought to the ED. Patient was brought to the ED and seen immediately in room 10. He is noted to have an O2 saturation of 2% and bradycardia to 30. Patient was near Ginger arrest and ill-appearing. 0.5 mg of atropine and pacer pads were placed. A 7-0 ET tube was emergently placed in the tracheostomy with improvement and O2 saturation and heart rate. Patient likely in toward mucous plugging during the process and empiric vancomycin and Zosyn was ordered. Patient's O2 saturation is now 100%. I suspect the patient's symptoms were likely secondary to hypoxia. We'll need to admit the patient to ICU. 04/16/17 09:20 CBC, BMP 04/16/17 08:14 04/16/17 08:20 CMP Sodium 142 mmol/L (136-145) 04/16/17 08:20 Potassium 4.0 mmol/L (3.5-5.1) 04/16/17 08:20 Chloride 104 mmol/L (98-107) 04/16/17 08:20 Carbon Dioxide 28 mmol/L (21-32) D 04/16/17 08:20 Anion Gap 10 (8-16) 04/16/17 08:20 BUN 19 mg/dL (7-18) H D 04/16/17 08:20 Creatinine 1.4 mg/dL (0.7-1.3) H D 04/16/17 08:20 Creat Clearance w eGFR 52.24 (>60) 04/16/17 08:20 Random Glucose 207 mg/dL (74-106) H D 04/16/17 08:20 Lactic Acid 1.8 mmol/L (0.4-2.0) 04/16/17 07:32 Calcium 9.0 mg/dL (8.5-10.1) 04/16/17 08:20 Total Bilirubin 0.3 mg/dL (0.2-1.0) D 04/16/17 08:20 AST 14 U/L (15-37) L D 04/16/17 08:20 ALT 23 U/L (12-78) D 04/16/17 08:20 Alkaline Phosphatase 70 U/L (45-117) 04/16/17 08:20 Creatine Kinase 22 IU/L (39-308) L 04/16/17 08:20 Troponin I < 0.02 ng/ml (0.00-0.05) 04/16/17 08:20 Total Protein 7.4 g/dl (6.4-8.2) 04/16/17 08:20 Albumin 3.2 g/dl (3.4-5.0) L 04/16/17 08:20 Chest xray reviewed by me, pending official radiology read. ET tube right above the alexis. Case discussed with Dr. Byrd. Accepts patient for admission. Will admit to ICU. Pt re-examined. O2 saturation 100% and End Tidal CO2 40s. VS improved. <Felix Spencer - Last Filed: 04/16/17 09:22> Heart Score/ECG Review #1 ECG reviewed & interpreted by me at: 07:40 04/16/17 08:08 NSR 108, no std/laura, normal axis, normal intervals, QTC 493 msec <Felix Spencer - Last Filed: 04/16/17 09:22>
[2017-04-16] MEDS ORDERED: MIDAZOLAM HCL 2 MG/2 ML SINGLE DOSE VIAL ONE (07:43)
[2017-04-16] MEDS: MIDAZOLAM 100 MG in SODIUM CHLORIDE 100 ML IVPB SCH ×3 (08:00→21:00)
[2017-04-16 08:17] VITALS: BMI 23.7
[2017-04-16] MEDS ORDERED: ATROPINE SO4 0.4 MG/1 ML VIAL IVPUSH ONE (08:25)
[2017-04-16 08:43] LABS: ALBUMIN 3.2 g/dl (3.4-5.0); ALK PHOS 70 U/L (45-117); ANION GAP 10 (8-16); BILIRUBIN,TOTAL 0.3 mg/dL (0.2-1.0); BLOOD UREA NITROGEN 19 mg/dL (7-18); CHLORIDE 104 mmol/L (98-107); CO2 28 mmol/L (21-32); CREATININE 1.4 mg/dL (0.7-1.3); GLUCOSE,RANDOM 207 mg/dL (74-106); SGOT/AST 14 U/L (15-37); SGPT/ALT 23 U/L (12-78); SODIUM 142 mmol/L (136-145); TOT PROT 7.4 g/dl (6.4-8.2)
[2017-04-16 08:45] LABS: VENOUS PH 7.16 (7.32-7.42)
[2017-04-16 08:46] LABS: INR 1.11 (0.82-1.09); PROTHROMBIN TIME (PATIENT) 12.5 SEC (9.98-11.88); VENOUS PO2 32.2 mmHg (28-48)
[2017-04-16 08:49] LABS: ACTIVATED PTT 30.7 SECONDS (26.9-34.4)
[2017-04-16] MEDS ORDERED: VANCOMYCIN 1 GRAM (PRE-DOCKED) 1,000 MG/250 ML BAG IVPB ONE (08:51)
[2017-04-16] MEDS ORDERED: PIPERACILLIN/TAZOB 4.5 GM 4.5 GM/100 ML BAG IVPB ONE (08:51)
[2017-04-16 08:52] LABS: URINE APPEARANCE SLCLOUDY; URINE BILIRUBIN NEGATIVE (NEGATIVE); URINE BLOOD NEGATIVE (NEGATIVE); URINE COLOR YELLOW; URINE GLUCOSE (UA) 1+ (NEGATIVE); URINE KETONE NEGATIVE (NEGATIVE); URINE LEUK ESTERASE NEGATIVE (NEGATIVE); URINE NITRITE NEGATIVE (NEGATIVE); URINE UROBILINOGEN NEGATIVE mg/dL (0.2-1.0)
[2017-04-16] MEDS ORDERED: VANCOMYCIN 1,000 MG in DEXTROSE 5%-WATER - 250 ML IVPB ONE (08:53)
[2017-04-16] MEDS ORDERED: SODIUM CHLORIDE 1,000 ML IV STA ×2 (08:58)
[2017-04-16 08:59] LABS: BASO % 0.4 % (0-2.0); HEMATOCRIT 34.8 % (35.4-49); HEMOGLOBIN 11.2 GM/dL (11.7-16.9); LYMPH % 24.2 % (8-40); MCH 29.6 pg (25.7-33.7); MCHC 32.2 g/dl (32.0-35.9); MEAN CELL VOLUME 91.7 fl (80-96); MEAN PLT VOLUME 9.5 fl (7.5-11.1); NEUT % 65.4 % (42.8-82.8); PLATELET COUNT 209 K/MM3 (134-434); RBC 3.79 M/mm3 (4.00-5.60); RDW 13.9 % (11.9-15.9); WHITE BLOOD COUNT 7.1 K/mm3 (4.0-10.0)
--- NOTE | 2017-04-16 09:01 | PDOC ---
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 EMS reports patient was found to be cyanotic. A line was placed, and the patient was bagged, but not successfully. Patient was unable to provide history. Past History - Past Medical History Allergies/Adverse Reactions: Allergies Allergy/AdvReac Type Severity Reaction Status Date / Time No Known Drug Allergies Allergy Verified 04/11/17 09:39 Home Medications: Ambulatory Orders Amlodipine Besylate 10 mg PO DAILY 12/23/16 Atorvastatin Ca [Lipitor] 10 mg PO HS 12/23/16 Gabapentin 800 mg PO TID 12/23/16 Sertraline HCl [Zoloft] 100 mg PO BID 12/23/16 Folic Acid 1 mg PO DAILY 01/02/17 Allopurinol [Zyloprim -] 100 mg PO DAILY 02/12/17 Aspirin [ASA -] 81 mg PO DAILY 02/12/17 Acetylcysteine Po/INH 20% [Mucomyst 20 Oral / INH Use Only*] 600 mg NEB TIDR #5 vial 04/09/17 Albuterol 0.083% Nebulizer Va [Ventolin 0.083% Nebulizer Soln -] 1 amp NEB Q6H PRN #120 amp 04/09/17 Albuterol Sulfate 0.5% [Ventolin 0.5% Nebulizing Soln. -] 1 amp NEB Q4H PRN # 180 amp 04/09/17 Amlodipine Besylate [Norvasc -] 10 mg PO DAILY #30 tablet 04/09/17 Bacitracin - [Bacitracin Topical Ointment -] 1 applic TP BID #4 tube 04/09/17 Chlordiazepoxide [Librium -] 15 mg PO HS #30 capsule MDD 15 04/09/17 Gabapentin [Neurontin -] 400 mg PO TID #90 capsule 04/09/17 Heparin - 5,000 unit SQ TID #1 vial 04/09/17 Ibuprofen [Motrin -] 400 mg PO Q6H PRN #120 tablet 04/09/17 Metoprolol Tartrate [Lopressor -] 25 mg PO BID #60 tablet 04/09/17 Mineral Oil/Petrolat,Wht/Water [Eucerin (Large Jar) -] 1 applic TP DAILY PRN #1 jar 04/09/17 Multivitamins [Multivit ([facility] Formulary)] 1 tab PO DAILY #30 tab 04/09/17 Nicotine Patch [Nicoderm Patch -] 14 mg TD DAILY #30 patch 04/09/17 Nystatin Powder [Nystop Powder -] 1 applic TP BID #1 applic 04/09/17 Ondansetron [Zofran Odt -] 8 mg SL Q8H PRN #90 tab.rapdis 04/09/17 Polyethylene Glycol 3350 [Miralax 119 gm Btl -] 17 gm PO DAILY PRN #4 bottle Quetiapine Fumarate "Xr" [Seroquel XR] 300 mg PO HS@2000 #30 tablet 04/09/17 Sodium Chloride Nasal [place] [[place] Nasal [place] -] 2 spray NS BID PRN #1 spray 04/09/17 Thiamine HCl [Vitamin B1 -] 100 mg PO DAILY #30 tablet 04/09/17 Zinc Oxide 1 applic TP BID #3 tube 04/09/17 Levofloxacin [Levaquin] 750 mg PO DAILY #7 tablet 04/11/17 Cancer: Yes (malignant neoplasem of bronchus and lung) Cardiac Disorders: Yes (CAD) COPD: Yes GI Disorders: Yes (h/o GI Bleed) Disorders: No HTN: Yes Hypercholesterolemia: Yes Liver Disease: No Psychiatric Problems: Yes (DEPRESSION, ANXIETY) Thyroid Disease: No - Surgical History Cardiac Surgery: Yes (cardiac stents ~ 2015) Orthopedic Surgery: Yes (RIGHT HIP REPLACEMENT) - Suicide/Smoking/Psychosocial Hx Smoking History: Unknown if ever smoked Have you smoked in the past 12 months: Yes Number of Cigarettes Smoked Daily: 6 If you are a former smoker, when did you quit?: 6 Information on smoking cessation initiated: No 'Breaking Loose' booklet given: 02/11/17 Hx Alcohol Use: No Drug/Substance Use Hx: No Substance Use Type: None Hx Substance Use Treatment: Yes Review of Systems - Review of Systems Able to Perform ROS?: No (2/2 clinical condition) *Physical Exam - Vital Signs Last Vital Signs Temp Pulse Resp BP Pulse Ox 98.6 F 126 H 29 H 200/110 92 L 04/16/17 07:24 04/16/17 07:40 04/16/17 07:40 04/16/17 07:24 04/16/17 07:40 - Physical Exam Comments: 04/16/17 09:04 GENERAL: Unresponsive, cyanotic HEAD: No signs of trauma, normocephalic, atraumatic EYES: PERRLA, EOMI, sclera anicteric, conjunctiva clear ENT: Auricles normal inspection, hearing grossly normal, nares patent, oropharynx clear without exudates. Moist mucosa LUNGS: No breath sounds HEART: Bradycardic, in 20s ABDOMEN: Soft, nontender, normoactive bowel sounds. G tube placed. EXTREMITIES: Normal inspection, Normal range of motion, no edema. No clubbing or cyanosis. SKIN: Warm, Dry, normal turgor, no rashes or lesions noted. Procedures - Intubation Time of Intubation: 07:40 Blade used: placed through trach Tube Size (Fr): 7.0 Tube position @ lip (cm): 16 (at trach) Tube position confirmed by: CO2 detector, Breath sounds Breath Sounds after Intubation: equal Intubation Complications: no complications Post Intubation Xray: Yes (at [facility]lexis) ED Treatment Course - LABORATORY CBC & Chemistry Diagram: 04/16/17 08:14 04/16/17 08:20 - ADDITIONAL ORDERS Additional order review: Laboratory Results 04/16/17 04/16/17 04/16/17 08:20 08:14 08:14 PT with INR 12.50 H INR 1.11 PTT (Actin FS) 30.7 VBG pH 7.16 L* POC VBG pCO2 77.0 H* POC VBG pO2 32.2 Mixed VBG HCO3 26.3 H Sodium 142 Potassium 4.0 Chloride 104 Carbon Dioxide 28 D Anion Gap 10 BUN 19 H D Creatinine 1.4 H D Creat Clearance w eGFR 52.24 Random Glucose 207 H D Lactic Acid Calcium 9.0 Total Bilirubin 0.3 D AST 14 L D ALT 23 D Alkaline Phosphatase 70 Creatine Kinase 22 L Troponin I < 0.02 Total Protein 7.4 Albumin 3.2 L 04/16/17 07:32 PT with INR INR PTT (Actin FS) VBG pH POC VBG pCO2 POC VBG pO2 Mixed VBG HCO3 Sodium Potassium Chloride Carbon Dioxide Anion Gap BUN Creatinine Creat Clearance w eGFR Random Glucose Lactic Acid 1.8 Calcium Total Bilirubin AST ALT Alkaline Phosphatase Creatine Kinase Troponin I Total Protein Albumin 04/16/17 08:14 RBC 3.79 L MCV 91.7 MCHC 32.2 RDW 13.9 MPV 9.5 Neutrophils % 65.4 D Lymphocytes % 24.2 D Monocytes % 6.0 D Eosinophils % 4.0 D Basophils % 0.4 - RADIOLOGY Radiology Studies Ordered: Category Date Time Status CHEST X-RAY PORTABLE* [RAD] Stat Radiology 04/16/17 07:32 Taken - Medications Given in the ED: ED Medications Discontinued Medications Generic Name Dose Route Start Last Admin Trade Name Freq PRN Reason Stop Dose Admin Atropine Sulfate 0.5 mg 04/16/17 08:25 04/16/17 07:35 Atropine Injection - IVPUSH 04/16/17 08:26 0.5 mg ONCE ONE Administration Fentanyl 50 mcg 04/16/17 07:33 04/16/17 07:30 Sublimaze Injection - IVPUSH 04/16/17 07:34 50 mcg ONCE ONE Administration Lorazepam 2 mg 04/16/17 07:33 04/16/17 07:30 Ativan Injection - IVPUSH 04/16/17 07:34 2 mg ONCE ONE Administration Medical Decision Making - Medical Decision Making 04/16/17 09:20 Patient is a 56M with history of recent laryngopharyngectomy and tracheostomy tube and G-tube placement for 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 EMS bagging patient on arrival. A: No patent airway. ET tubed placed through trach, 7.0, 16cm. Confirmed with bilateral breath sounds, ETCO2, fog condensation. Secured. Aspiration before placement. B: Bilateral breath sounds. C: Initially bradycardic to 20s, given atropine. HR in 140s. First BP read 210/ 100. Equal pulses bilaterally. D: Sedated, moving all extremities E: G tube noted, no apparent injuries noted. Patient initially cyanotic, responsive only to sternal rub. Trach removed, et tube placed, bagged. SPO2 rapidly improved, bradycardia resolved. SBP in 200s, tachy to 140s. Patient allowed to normalize vital signs, second blood pressure with SBP 105. Patient given 50 fentanyl and 2 ativan. Patient started becoming combative, ET tube displaced for short amount of time. Placed in 2 point restraints. Sedated further with 5 versed and versed drip. BP remain in 100s, given 2L of fluid. Will cover for possible aspiration pneumonia with vanc/zosyn. Will admit to ICU. 04/16/17 09:32 Dr Esquivel confirmed ICU placement. Laboratory Tests 04/16/17 04/16/17 04/16/17 08:14 08:14 08:20 WBC 7.1 Hgb 11.2 L Hct 34.8 L Plt Count 209 VBG pH 7.16 L* POC VBG pCO2 77.0 H* BUN 19 H D Creatinine 1.4 H D Troponin I < 0.02 WBC normal. VBG shows acidosis with elevated pCO2. Taken 15 minutes after placed on vent. Trop negative. Rest of CMP unremarkable. *DC/Admit/Observation/Transfer Diagnosis at time of Disposition: Respiratory failure - Discharge Dispostion Condition at time of disposition: Critical Admit: Yes - Referrals Referrals: Darryl Sherman MD [Primary Care Provider] - - Patient Instructions - Post Discharge Activity
[2017-04-16 09:33] LABS: URINE PROTEIN 2+ (NEGATIVE)
[2017-04-16] MEDS ORDERED: VANCOMYCIN 1,000 MG in DEXTROSE 5%-WATER - 250 ML IVPB SCH (10:00)
[2017-04-16 11:04] LABS: EPI CELLS RARE /HPF (FEW); GRANULAR CASTS 6 /lpf; URINE BACTERIA RARE /hpf (NONE SEEN); URINE HYALINE CAST 7 /lpf; URINE MUCUS RARE; YEAST RARE
[2017-04-16] MEDS ORDERED: ACETAMINOPHEN 1000 MG/100 ML VIAL (NON FORMULARY) IVPB PRN (11:39)
[2017-04-16] MEDS ORDERED: ONDANSETRON 4 MG/2 ML VIAL IVPUSH PRN (11:39)
--- NOTE | 2017-04-16 12:31 | EKG ---
Test Reason : Blood Pressure : / mmHG Vent. Rate : 108 BPM Atrial Rate : 108 BPM P-R Int : 162 ms QRS Dur : 082 ms QT Int : 368 ms P-R-T Axes : 058 007 058 degrees QTc Int : 493 ms SINUS TACHYCARDIA OTHERWISE NORMAL ECG WHEN COMPARED WITH ECG OF 20-MAR-2017 20:29, NONSPECIFIC T WAVE ABNORMALITY NOW EVIDENT IN LATERAL LEADS QT HAS LENGTHENED Confirmed by AIDAN CABRERA, REBECCA ([id number]) on 04/16/2017 12:30:55 PM Referred By: Confirmed By:REBECCA BERMUDEZ MD
[2017-04-16] MEDS: SODIUM CHLORIDE 1,000 ML IV SCH (13:12)
[2017-04-16] MEDS: PANTOPRAZOLE SODIUM 40 MG VIAL IVPUSH SCH (13:12)
--- NOTE | 2017-04-16 13:41 | PN ---
Progress Note (short form) - Note Progress Note: ID Consult dictated 56 year old NH resident with PMH head and neck ca admitted from [place] with respiratory distress. Course complicated by displaced tracheostomy tube, cyanosis, hypoxemia, bradycardia. Will continue zosyn for treatment of probable aspiration in this NH patient. ]
--- NOTE | 2017-04-16 14:03 | CON.CARD ---
Consult Consult Specialty:: cardiology Referred by:: Rochelle Reason for Consultation:: Respiratory failure - History of Present Illness Chief Complaint: Shortness of breath History of Present Illness: The patient is a 56-year-old man, prison resident, former smoker, former alcoholic, hypertension, hyperlipidemia, gout, coronary artery disease and prior stents, pharyngeal and lung cancer, status post tracheostomy, status post resection of a lung tumor, admitted on 04/15/17 with cyanosis and respiratory failure. The patient apparently pulled out his tracheostomy. It was repositioned by EMS on the field. The patient is currently sedated. Hemodynamically stable. In sinus rhythm. - History Source History Provided By: Medical Record Limitations to Obtaining History: Other (sedated) - Past Medical History Cardio/Vascular: Yes: CAD, HTN, Hyperlipdemia Pulmonary: Yes: Other (Lung CA) ENT: Yes: Other (Laryngeal Ca) - Alcohol/Substance Use Hx Alcohol Use: No - Smoking History Smoking history: Unknown if ever smoked Have you smoked in the past 12 months: Yes Aproximately how many cigarettes per day: 6 If you are a former smoker, when did you quit?: 6 Home Medications - Allergies Allergies/Adverse Reactions: Allergies Allergy/AdvReac Type Severity Reaction Status Date / Time No Known Drug Allergies Allergy Verified 04/16/17 12:48 - Home Medications Home Medications: Ambulatory Orders Atorvastatin Ca [Lipitor] 10 mg PO HS 12/23/16 Sertraline HCl [Zoloft] 100 mg PO BID 12/23/16 Allopurinol [Zyloprim -] 100 mg PO DAILY 02/12/17 Aspirin [ASA -] 81 mg PO DAILY 02/12/17 Acetylcysteine Po/INH 20% [Mucomyst 20 Oral / INH Use Only*] 600 mg NEB TIDR #5 vial 04/09/17 Albuterol 0.083% Nebulizer Va [Ventolin 0.083% Nebulizer Soln -] 1 amp NEB Q6H PRN #120 amp 04/09/17 Albuterol Sulfate 0.5% [Ventolin 0.5% Nebulizing Soln. -] 1 amp NEB Q4H PRN # 180 amp 04/09/17 Amlodipine Besylate [Norvasc -] 10 mg PO DAILY #30 tablet 04/09/17 Bacitracin - [Bacitracin Topical Ointment -] 1 applic TP BID #4 tube 12/21/17 Chlordiazepoxide [Librium -] 15 mg PO HS #30 capsule MDD 15 04/09/17 Gabapentin [Neurontin -] 400 mg PO TID #90 capsule 04/09/17 Heparin - 5,000 unit SQ TID #1 vial 04/09/17 Ibuprofen [Motrin -] 400 mg PO Q6H PRN #120 tablet 04/09/17 Metoprolol Tartrate [Lopressor -] 25 mg PO BID #60 tablet 04/09/17 Mineral Oil/Petrolat,Wht/Water [Eucerin (Large Jar) -] 1 applic TP DAILY PRN #1 jar 04/09/17 Multivitamins [Multivit ([facility] Formul[facility])] 1 tab PO DAILY #30 tab 04/09/17 Nicotine Patch [Nicoderm Patch -] 14 mg TD DAILY #30 patch 04/09/17 Nystatin Powder [Nystop Powder -] 1 applic TP BID #1 applic 04/09/17 Ondansetron [Zofran Odt -] 8 mg SL Q8H PRN #90 tab.rapdis 04/09/17 Polyethylene Glycol 3350 [Miralax 119 gm Btl -] 17 gm PO DAILY PRN #4 bottle Quetiapine Fumarate "Xr" [Seroquel XR] 300 mg PO HS@2000 #30 tablet 04/09/17 Sodium Chloride Nasal [place] [[place] Nasal [place] -] 2 spray NS BID PRN #1 spray 04/09/17 Thiamine HCl [Vitamin B1 -] 100 mg PO DAILY #30 tablet 04/09/17 Zinc Oxide 1 applic TP BID #3 tube 04/09/17 Levofloxacin [Levaquin] 750 mg PO DAILY #7 tablet 04/11/17 Review of Systems - Review of Systems Constitutional: reports: No Symptoms Eyes: reports: No Symptoms HENT: reports: No Symptoms Neck: reports: Other (Tracheostomy) Cardiovascular: reports: Shortness of Breath Respiratory: reports: SOB Gastrointestinal: reports: No Symptoms Genitourinary: reports: No Symptoms Breasts: reports: No Symptoms Reported Musculoskeletal: reports: No Symptoms Integumentary: reports: No Symptoms Neurological: reports: No Symptoms Endocrine: reports: No Symptoms Hematology/Lymphatic: reports: No Symptoms Psychiatric: reports: No Symptoms - Risk Factors Known Risk Factors: Yes: Hypercholesterolemia, Hypertension Vital Signs: Vital Signs Temperature 98 F 04/16/17 12:55 Pulse Rate 72 04/16/17 12:59 Respiratory Rate 12 04/16/17 12:59 Blood Pressure 122/74 04/16/17 12:59 O2 Sat by Pulse Oximetry (%) 100 04/16/17 12:47 Constitutional: Yes: Well Nourished, Other (Sedated) Eyes: Yes: WNL, Conjunctiva Clear HENT: Yes: WNL, Atraumatic, Normocephalic Neck: Yes: Other (Tracheostomy) Respiratory: Yes: WNL, Regular, CTA Bilaterally Gastrointestinal: Yes: WNL, Normal Bowel Sounds, Soft Renal/: Yes: WNL Cardiovascular: Yes: WNL, Regular Rate and Rhythm JVD: No Carotid Bruit: No PMI: Non-Displaced Heart Sounds: Yes: S1, S2 Murmur: Yes: Systolic Murmur, Grade 2 Musculoskeletal: Yes: WNL Extremities: Yes: WNL Edema: No Peripheral Pulses WNL: Yes Peripheral Pulses: 1+ Left Carotid, 1+ Right Carotid, 1+ Left Femoral, 1+ Right Femoral, 1+ Left Popliteal, 1+ Right Popliteal, 1+ Left Doralis Pedis, 1+ Right Dorsalis Pedis Integumentary: Yes: WNL Neurological: Yes: Other (Sedated) - Other Data Labs, Other Data: CBC, BMP 04/16/17 08:14 04/16/17 08:20 INR, PTT INR 1.11 (0.82-1.09) 04/16/17 08:14 Troponin, BNP 04/16/17 08:20 Troponin I < 0.02 Troponin, BNP 04/16/17 08:20 Troponin I < 0.02 Assessment/Plan 56-year-old man, with multiple severe medical problems, admitted in respiratory distress and cyanosis after pulling out his tracheostomy. Tracheostomy is currently placed. There is no evidence of ischemia nor acute coronary syndrome. No acute ECG changes. The patient is in sinus rhythm. There is no need for further cardiac workup nor testing in this setting. Continue current care. Do not hesitate to call us PRN.
--- NOTE | 2017-04-16 15:03 | CONS ---
INFECTIOUS DISEASE CONSULTATION DATE OF CONSULTATION: DATE OF DICTATION: 04/16/2017 The patient is a 56-year-old male, with a history of head and neck cancer, as well as lung cancer, evaluated for probable aspiration. The patient had a long, complicated [facility] admission from February 13 through April 09, 2017. At that time, he was diagnosed with squamous cell carcinoma of the hypopharynx, which required laryngectomy as well as skin grafting. In addition, he had adenocarcinoma of the lung and underwent lung resection. He was residing at a longterm facility, when he became short of breath. Earlier today, the patient became increasingly short of breath and was in respiratory distress. He had apparently dislodged his tracheostomy tube. The patient became cyanotic and poorly responsive. He was brought to the emergency room, where he was in respiratory distress, requiring intubation of his tracheostomy. His course was further complicated by bradycardia and elevated blood pressure. He became combative, requiring sedation. The patient was transferred to the intensive care unit, where he is presently sedated on the ventilator. Admitting chest x-ray shows some increased markings bilaterally. He has been afebrile with a normal white cell count. At the present time, he is sedated on the ventilator and unable to offer any complaints. No reports of any recent febrile illness or respiratory tract illness at the [facility]. PAST MEDICAL HISTORY: Positive for squamous cell carcinoma of the hypopharynx, status post laryngectomy, history of adenocarcinoma of the lung, COPD, hypertension, hyperlipidemia, coronary artery disease. PAST SURGICAL HISTORY: Status post coronary artery stents, laryngectomy, tracheostomy, feeding gastrostomy, lung resection, right total hip replacement. ALLERGIES: No known allergies. MEDICATIONS: Zofran, Zosyn, vancomycin, Protonix. SOCIAL HISTORY: Residing in a longterm facility. Positive history of tobacco and alcohol, as per chart. SYSTEMS REVIEW: Neurologic: Positive for altered mental status. No seizure activity or focal weakness. Cardiac: Negative chest pain or palpitations. Respiratory: As per HPI. Gastrointestinal: Status post feeding gastrostomy. Genitourinary: Negative for urinary tract infection. LABORATORY DATA: White count 7.1, hematocrit 34.8, platelet count 209. BUN 19, creatinine 1.4. Liver enzymes normal. Urinalysis 4 white cells. Chest x-ray: No focal infiltrate. Cultures are pending. PHYSICAL EXAMINATION: General: He is sedated, on the ventilator. Vital signs: Temperature 98, blood pressure 122/74, pulse 72 and regular, respirations 12 per minute. Eyes: The sclerae are anicteric. Throat: The patient is intubated through the tracheostomy. Cardiovascular: Heart sounds S1, S2. Lungs: Scattered rhonchi. Abdomen: Soft. There is a feeding gastrostomy tube, as well as healed surgical scars. Extremities: Positive for edema. Skin graft harvest sites present on the thighs bilaterally do not appear to be infected. IMPRESSION: A 56-year-old male, with a history of head and neck cancer, status post laryngectomy, and tracheostomy, now admitted from the [facility], with respiratory distress. Course complicated by displaced tracheostomy tube, cyanosis, hypoxemia, and bradycardia. We will continue empiric Zosyn for treatment of presumed aspiration, in the setting of a patient from the [facility], with recent long and complicated hospital admission. Await culture results. Continue ventilatory support. ICU monitoring. Thank you for the kind referral. TONIO OWENS M.D. [id number]
--- NOTE | 2017-04-16 15:21 | HP ---
Admitting History and Physical - Primary Care Physician PCP: Kulwinder Byrd - Admission Chief Complaint: TRACH DISLODGED WITH RESP DISTRESS HYPERCAPNEA History of Present Illness: Pt is a 56 yo M resident from [facility] with a PMHx of HLD, COPD, Lung CA, G tube, Tracheostomy tube who presents to the ED in respiratory distress. As per EMS, patients tracheostomy tube had fallen out and patient appeared cyanotic. EMS repositioned tracheostomy tube and brought the patient to the ED for further evaluation. Upon arrival to the ED, patient continued to be in respiratory distress. Patients vital signs significant for 2% O2 saturation and bradycardia at 30 bpm. History Source: Medical Record Limitations to Obtaining History: Clinical Condition - Past Medical History Cardiovascular: Yes: CAD, HTN, Hyperlipdemia Pulmonary: Yes: Other (Lung CA) Heme/Onc: Yes: Cancer ENT: Yes: Other (Laryngeal Ca) - Smoking History Smoking history: Unknown if ever smoked Have you smoked in the past 12 months: Yes Aproximately how many cigarettes per day: 6 If you are a former smoker, when did you quit?: 6 - Alcohol/Substance Use Hx Alcohol Use: No Home Medications - Allergies Allergies/Adverse Reactions: Allergies Allergy/AdvReac Type Severity Reaction Status Date / Time No Known Drug Allergies Allergy Verified 04/16/17 12:48 - Home Medications Home Medications: Ambulatory Orders Atorvastatin Ca [Lipitor] 10 mg PO HS 12/23/16 Sertraline HCl [Zoloft] 100 mg PO BID 12/23/16 Allopurinol [Zyloprim -] 100 mg PO DAILY 02/12/17 Aspirin [ASA -] 81 mg PO DAILY 02/12/17 Acetylcysteine Po/INH 20% [Mucomyst 20 Oral / INH Use Only*] 600 mg NEB TIDR #5 vial 04/09/17 Albuterol 0.083% Nebulizer Va [Ventolin 0.083% Nebulizer Soln -] 1 amp NEB Q6H PRN #120 amp 04/09/17 Albuterol Sulfate 0.5% [Ventolin 0.5% Nebulizing Soln. -] 1 amp NEB Q4H PRN # 180 amp 04/09/17 Amlodipine Besylate [Norvasc -] 10 mg PO DAILY #30 tablet 04/09/17 Bacitracin - [Bacitracin Topical Ointment -] 1 applic TP BID #4 tube 04/09/17 Chlordiazepoxide [Librium -] 15 mg PO HS #30 capsule MDD 15 04/09/17 Gabapentin [Neurontin -] 400 mg PO TID #90 capsule 04/09/17 Heparin - 5,000 unit SQ TID #1 vial 04/09/17 Ibuprofen [Motrin -] 400 mg PO Q6H PRN #120 tablet 04/09/17 Metoprolol Tartrate [Lopressor -] 25 mg PO BID #60 tablet 04/09/17 Mineral Oil/Petrolat,Wht/Water [Eucerin (Large Jar) -] 1 applic TP DAILY PRN #1 jar 04/09/17 Multivitamins [Multivit ([facility] Formul[facility])] 1 tab PO DAILY #30 tab 04/09/17 Nicotine Patch [Nicoderm Patch -] 14 mg TD DAILY #30 patch 04/09/17 Nystatin Powder [Nystop Powder -] 1 applic TP BID #1 applic 04/09/17 Ondansetron [Zofran Odt -] 8 mg SL Q8H PRN #90 tab.rapdis 04/09/17 Polyethylene Glycol 3350 [Miralax 119 gm Btl -] 17 gm PO DAILY PRN #4 bottle Quetiapine Fumarate "Xr" [Seroquel XR] 300 mg PO HS@2000 #30 tablet 04/09/17 Sodium Chloride Nasal [place] [[place] Nasal [place] -] 2 spray NS BID PRN #1 spray 04/09/17 Thiamine HCl [Vitamin B1 -] 100 mg PO DAILY #30 tablet 04/09/17 Zinc Oxide 1 applic TP BID #3 tube 04/09/17 Levofloxacin [Levaquin] 750 mg PO DAILY #7 tablet 04/11/17 Review of Systems - Review of Systems Constitutional: reports: Weakness Eyes: reports: No Symptoms HENT: reports: No Symptoms Neck: reports: Other Cardiovascular: reports: Shortness of Breath Respiratory: reports: SOB Genitourinary: reports: No Symptoms Musculoskeletal: reports: Muscle Weakness Integumentary: reports: No Symptoms Neurological: reports: Weakness Endocrine: reports: No Symptoms Hematology/Lymphatic: reports: No Symptoms Psychiatric: reports: No Symptoms Physical Examination Vital Signs: Vital Signs Temperature 98.2 F 04/16/17 14:00 Pulse Rate 62 04/16/17 14:00 Respiratory Rate 12 04/16/17 14:00 Blood Pressure 121/72 04/16/17 14:00 O2 Sat by Pulse Oximetry (%) 100 04/16/17 12:47 Constitutional: Yes: Moderate Distress Eyes: Yes: WNL HENT: Yes: WNL Neck: Yes: Other (tracheostomy) Cardiovascular: Yes: Tachycardia Respiratory: Yes: Accessory Muscle Use, On Venti-Mask Gastrointestinal: Yes: WNL Renal/: Yes: Incontinence Musculoskeletal: Yes: Muscle Weakness Extremities: Yes: WNL Edema: No Peripheral Pulses WNL: Yes Integumentary: Yes: WNL Wound/Incision: Yes: Clean/Dry Neurological: Yes: Pre-Existing Deficit ...Motor Strength: LLE, RLE Psychiatric: Yes: Other Labs: CBC, BMP 04/16/17 08:14 04/16/17 08:20 Problem List - Problems (1) JOSE (acute kidney injury) Code(s): N17.9 - ACUTE KIDNEY FAILURE, UNSPECIFIED (2) Acute respiratory failure with hypoxia Code(s): J96.01 - ACUTE RESPIRATORY FAILURE WITH HYPOXIA (3) Bradycardia Code(s): R00.1 - BRADYCARDIA, UNSPECIFIED (4) Respiratory failure Code(s): J96.90 - RESPIRATORY FAILURE, UNSP, UNSP W HYPOXIA OR HYPERCAPNIA Qualifiers: Chronicity: acute on chronic (5) COPD (chronic obstructive pulmonary disease) Code(s): J44.9 - CHRONIC OBSTRUCTIVE PULMONARY DISEASE, UNSPECIFIED Qualifiers: COPD type: unspecified COPD Qualified Code(s): J44.9 - Chronic obstructive pulmonary disease, unspecified (6) Laryngeal squamous cell carcinoma Code(s): C32.9 - MALIGNANT NEOPLASM OF LARYNX, UNSPECIFIED Assessment/Plan ICU ADMISSION F/U CARDIO/PULM TRACHEOSTOMY BACK IN POSITION ENT F/U IV ABX RENAL FAILURE CHECK LYTES/LABS IVF RESP SUPPORT DVT PROPHYLAXIS
--- NOTE | 2017-04-16 15:55 | CONSULT ---
Consultation: REQUESTING PROVIDER: CONSULT REQUEST: We have been asked to medically evaluate this patient for jose. HISTORY OF PRESENT ILLNESS: This is a 56 yo M [facility] resident with a PMH of HLD, COPD, Lung CA, G tube, Tracheostomy on vent in NH, who presented to the ED with respiratory distress. Found to be hypoxic and bradycardic with BP 200/110 recorded initially , then 150 systolic, with a displaced trach tube. NH recorsd show BP jump from 122.80 to 183/101, which is unusually high for him. In ED trach was adjusted and he is now treated for possible aspiration PNA with IV abx and IVF. Patient also found to have JOSE with proteinuria. UO has not yet been assessed but rader was placed in ED. Past Medical History Cardiovascular: Yes: CAD, HTN, Hyperlipdemia Pulmonary: Yes: Other (Lung CA) Heme/Onc: Yes: Cancer ENT: Yes: Other (Laryngeal Ca) Smoking History Past smoker Alcohol/Substance Use denies Allergies NKDA REVIEW OF SYSTEMS: Difficult to obtain because patient is currently nonverbal denies pain, denies sob PHYSICAL EXAMINATION Vital Signs - 24 hr 04/16/17 04/16/17 04/16/17 07:24 07:40 07:50 Temperature 98.6 F Pulse Rate 154 H 126 H Pulse Rate [ 115 H Apical] Respiratory 29 H 16 Rate Blood Pressure 200/110 Blood Pressure 107/65 [Left Arm] O2 Sat by Pulse 2 L 92 L 96 Oximetry (%) 04/16/17 04/16/17 04/16/17 08:50 09:50 10:03 Temperature Pulse Rate Pulse Rate [ 96 H 73 Apical] Respiratory 17 15 15 Rate Blood Pressure Blood Pressure 99/68 104/71 [Left Arm] O2 Sat by Pulse 100 98 Oximetry (%) 04/16/17 04/16/17 04/16/17 10:05 10:50 11:52 Temperature Pulse Rate 81 Pulse Rate [ 68 84 Apical] Respiratory 21 Rate Blood Pressure Blood Pressure 123/85 124/78 [Left Arm] O2 Sat by Pulse 100 100 100 Oximetry (%) 04/16/17 04/16/17 04/16/17 12:30 12:47 12:55 Temperature 98.2 F 98 F Pulse Rate 72 72 Pulse Rate [ Apical] Respiratory 12 12 12 Rate Blood Pressure 150/85 150/85 Blood Pressure [Left Arm] O2 Sat by Pulse 100 Oximetry (%) 04/16/17 04/16/17 12:59 14:00 Temperature 98.2 F Pulse Rate 72 62 Pulse Rate [ Apical] Respiratory 12 12 Rate Blood Pressure 122/74 121/72 Blood Pressure [Left Arm] O2 Sat by Pulse Oximetry (%) GENERAL: Awake, alert, and oriented, in no acute distress. HEAD: Normal with no signs of trauma. EYES: Pupils equal, round and reactive to light, extraocular movements intact, sclera anicteric, conjunctiva clear. EARS, NOSE, THROAT: Moist mucous membranes. NECK: supple, trach in place LUNGS: bibasilar crackles HEART: Regular rate and rhythm, normal S1 and S2 ABDOMEN: Soft, nontender, not distended, normoactive bowel sounds, no guarding MUSCULOSKELETAL: No CVA tenderness. UPPER EXTREMITIES: 2+ pulses, warm, well-perfused. No cyanosis. No peripheral edema. LOWER EXTREMITIES: 1+ pulses, warm, well-perfused. No calf tenderness. trace edema. NEUROLOGICAL: Cranial nerves II-XII grossly intact. PSYCHIATRIC: Cooperative. Good eye contact. SKIN: Warm, dry Laboratory Results - last 24 hr 04/16/17 04/16/17 04/16/17 06:40 07:32 08:14 WBC 7.1 RBC 3.79 L Hgb 11.2 L Hct 34.8 L MCV 91.7 MCH 29.6 MCHC 32.2 RDW 13.9 Plt Count 209 MPV 9.5 Neutrophils % 65.4 D Lymphocytes % 24.2 D Monocytes % 6.0 D Eosinophils % 4.0 D Basophils % 0.4 PT with INR INR PTT (Actin FS) VBG pH POC VBG pCO2 POC VBG pO2 Mixed VBG HCO3 Sodium Potassium Chloride Carbon Dioxide Anion Gap BUN Creatinine Creat Clearance w eGFR Random Glucose Lactic Acid 1.8 Calcium Total Bilirubin AST ALT Alkaline Phosphatase Creatine Kinase Troponin I Total Protein Albumin Urine Color Yellow Urine Appearance Slcloudy Urine pH 5.0 Ur Specific Franklin 1.013 Urine Protein 2+ H Urine Glucose (UA) 1+ H Urine Ketones Negative Urine Blood Negative Urine Nitrite Negative Urine Bilirubin Negative Urine Urobilinogen Negative Urine WBC (Auto) 4 Urine RBC (Auto) 3 Ur Epithelial Cells Rare Urine Bacteria Rare Hyaline Casts 7 Granular Casts 6 Urine Mucus Rare Urine Yeast Rare Blood Type Antibody Screen 04/16/17 04/16/17 04/16/17 08:14 08:14 08:14 WBC RBC Hgb Hct MCV MCH MCHC RDW Plt Count MPV Neutrophils % Lymphocytes % Monocytes % Eosinophils % Basophils % PT with INR 12.50 H INR 1.11 PTT (Actin FS) 30.7 VBG pH 7.16 L* POC VBG pCO2 77.0 H* POC VBG pO2 32.2 Mixed VBG HCO3 26.3 H Sodium Potassium Chloride Carbon Dioxide Anion Gap BUN Creatinine Creat Clearance w eGFR Random Glucose Lactic Acid Calcium Total Bilirubin AST ALT Alkaline Phosphatase Creatine Kinase Troponin I Total Protein Albumin Urine Color Urine Appearance Urine pH Ur Specific Franklin Urine Protein Urine Glucose (UA) Urine Ketones Urine Blood Urine Nitrite Urine Bilirubin Urine Urobilinogen Urine WBC (Auto) Urine RBC (Auto) Ur Epithelial Cells Urine Bacteria Hyaline Casts Granular Casts Urine Mucus Urine Yeast Blood Type O POSITIVE Antibody Screen Negative 04/16/17 08:20 WBC RBC Hgb Hct MCV MCH MCHC RDW Plt Count MPV Neutrophils % Lymphocytes % Monocytes % Eosinophils % Basophils % PT with INR INR PTT (Actin FS) VBG pH POC VBG pCO2 POC VBG pO2 Mixed VBG HCO3 Sodium 142 Potassium 4.0 Chloride 104 Carbon Dioxide 28 D Anion Gap 10 BUN 19 H D Creatinine 1.4 H D Creat Clearance w eGFR 52.24 Random Glucose 207 H D Lactic Acid Calcium 9.0 Total Bilirubin 0.3 D AST 14 L D ALT 23 D Alkaline Phosphatase 70 Creatine Kinase 22 L Troponin I < 0.02 Total Protein 7.4 Albumin 3.2 L Urine Color Urine Appearance Urine pH Ur Specific Franklin Urine Protein Urine Glucose (UA) Urine Ketones Urine Blood Urine Nitrite Urine Bilirubin Urine Urobilinogen Urine WBC (Auto) Urine RBC (Auto) Ur Epithelial Cells Urine Bacteria Hyaline Casts Granular Casts Urine Mucus Urine Yeast Blood Type Antibody Screen Active Medications Generic Name Dose Route Start Last Admin Trade Name Freq PRN Reason Stop Dose Admin Acetaminophen 1,000 mg 04/16/17 11:39 Ofirmev Injection - IVPB Q6H PRN FEVER OR PAIN Midazolam HCl 100 mg/ Sodium 100 mls @ 1 mls/hr 04/16/17 08:30 04/16/17 13:03 Chloride IVPB 9 mg/hr TITR JUNIOR 9 mls/hr Protocol Administration 1 MG/HR Sodium Chloride 1,000 mls @ 83 mls/hr 04/16/17 11:45 04/16/17 13:12 Normal Saline - IV 83 mls/hr ASDIR JUNIOR Administration Piperacillin Sod/Tazobactam 100 mls @ 200 mls/hr 04/16/17 14:00 Sod 3.375 gm/ Dextrose IVPB Q8H-IV JUNIOR Protocol Ondansetron HCl 4 mg 04/16/17 11:39 Zofran Injection IVPUSH Q6H PRN NAUSEA AND/OR VOMITING Pantoprazole Sodium 40 mg 04/16/17 11:45 04/16/17 13:12 Protonix Iv IVPUSH 40 mg DAILY JUNIOR Administration ASSESSMENT/PLAN: This is a 56 yo M [facility] resident with a PMH of HLD, COPD, Lung CA, G tube, Tracheostomy on vent in [place], who presented to the ED with respiratory distress. JOSE -BUN/Creat 19/1.4 from 0.8 -hold home ibuprofen 400 mg q6h -continue IVF NS @ 83 -f/u urine lytes, kidney/bladder us -monitor UO, strict i/o, daily weights -avoid nephrotoxoc agents. HTN -episode of elevated BP likely due to hypoxia/distress; now resolved -can resume home amlodiopine Acute hypoxic respiratory failure -displaced trach tube adjusted; resolved COPD HLD G tube Dispo: We will continue to follow the patient. Thank you for this consultative opportunity. Problem List - Problems (1) JOSE (acute kidney injury) Code(s): N17.9 - ACUTE KIDNEY FAILURE, UNSPECIFIED (2) Acute respiratory failure with hypoxia Code(s): J96.01 - ACUTE RESPIRATORY FAILURE WITH HYPOXIA (3) Bradycardia Code(s): R00.1 - BRADYCARDIA, UNSPECIFIED (4) Respiratory failure Code(s): J96.90 - RESPIRATORY FAILURE, UNSP, UNSP W HYPOXIA OR HYPERCAPNIA (5) COPD (chronic obstructive pulmonary disease) Code(s): J44.9 - CHRONIC OBSTRUCTIVE PULMONARY DISEASE, UNSPECIFIED Qualifiers: COPD type: unspecified COPD Qualified Code(s): J44.9 - Chronic obstructive pulmonary disease, unspecified (6) Laryngeal squamous cell carcinoma Code(s): C32.9 - MALIGNANT NEOPLASM OF LARYNX, UNSPECIFIED (7) Pneumonia Code(s): J18.9 - PNEUMONIA, UNSPECIFIED ORGANISM Qualifiers: Pneumonia type: due to unspecified organism Laterality: left Lung location: lower lobe of lung Qualified Code(s): J18.1 - Lobar pneumonia, unspecified organism Visit type - Emergency Visit Emergency Visit: Yes ED Registration Date: 04/16/17 Care time: The patient presented to the Emergency Department on the above date and was hospitalized for further evaluation of their emergent condition. - New Patient This patient is new to me today: Yes Date on this admission: 04/16/17 - Critical Care Critical Care patient: Yes Total Critical Care Time (in minutes): 35 Critical Care Statement: The care of this patient involved high complexity decision making to prevent further life threatening deterioration of the patient 's condition and/or to evaluate & treat vital organ system(s) failure or risk of failure.
[2017-04-16] MEDS ORDERED: PT OWN MED DRAWER 7, Y5N ONE (17:04)
--- NOTE | 2017-04-16 17:16 | PN ---
Progress Note (short form) - Note Progress Note: Patient readmitted for respiratory distress having lost tracheostomy tube. No he is resting comfortably in room without distress. He is tolerating regular diet without any complications and his neck scar has healed well. Donor sites are well healed on each thigh. No further plastic surgery follow up is required.
--- NOTE | 2017-04-16 17:38 | PN ---
Teaching Attending Note Name of Resident: Davina Mckeon (Nephrology) ATTENDING PHYSICIAN STATEMENT I saw and evaluated the patient. I reviewed the resident's note and discussed the case with the resident. I agree with the resident's findings and plan as documented. Renal Please see consult filled out by resident. Pt is a 56 year old male with pmhx of chol, copd, lung cancer, and peg tube who was sent in for respiratory distress. Pt appears cyanotic. His trache had to be adjusted. Pt also had elevated elevated blood pressure on his last reading in the NH and his first bp reading in the ER. His blood pressure has since stabilized. I was called to evalaute him for elevated creatinine. pmhx chol copd resp fal lung cancer nkda family hx non cotrib Laboratory Tests 04/16/17 04/16/17 04/16/17 06:40 07:32 08:14 WBC 7.1 Hgb 11.2 L Sodium Potassium Chloride Carbon Dioxide Anion Gap BUN Creatinine Random Glucose Lactic Acid 1.8 Urine Protein 2+ H Urine Glucose (UA) 1+ H Urine Ketones Negative Urine Blood Negative Urine Nitrite Negative Urine Bilirubin Negative 04/16/17 08:20 WBC Hgb Sodium 142 Potassium 4.0 Chloride 104 Carbon Dioxide 28 D Anion Gap 10 BUN 19 H D Creatinine 1.4 H D Random Glucose 207 H D Lactic Acid Urine Protein Urine Glucose (UA) Urine Ketones Urine Blood Urine Nitrite Urine Bilirubin Current Medications Generic Name Dose Route Start Last Admin Trade Name Freq PRN Reason Stop Dose Admin Acetaminophen 1,000 mg 04/16/17 11:39 Ofirmev Injection - IVPB Q6H PRN FEVER OR PAIN Midazolam HCl 100 mg/ Sodium 100 mls @ 1 mls/hr 04/16/17 08:30 04/16/17 13:03 Chloride IVPB 9 mg/hr TITR JUNIOR 9 mls/hr Protocol Administration 1 MG/HR Sodium Chloride 1,000 mls @ 83 mls/hr 04/16/17 11:45 04/16/17 13:12 Normal Saline - IV 83 mls/hr ASDIR JUNIOR Administration Piperacillin Sod/Tazobactam 100 mls @ 200 mls/hr 04/16/17 14:00 Sod 3.375 gm/ Dextrose IVPB Q8H-IV JUNIOR Protocol Ondansetron HCl 4 mg 04/16/17 11:39 Zofran Injection IVPUSH Q6H PRN NAUSEA AND/OR VOMITING Pantoprazole Sodium 40 mg 04/16/17 11:45 04/16/17 13:12 Protonix Iv IVPUSH 40 mg DAILY JUNIOR Administration Last Vital Signs Temp Pulse Resp BP Pulse Ox 98.2 F 60 13 122/78 100 04/16/17 14:00 04/16/17 16:06 04/16/17 16:06 04/16/17 16:00 04/16/17 16:06 cardip s1s2 reg pulm trache GI peg ext neg edema neuro responds to commands Impression 1. JOSE/azotemia 2. hypoxia 3. lung cancer 4. HTN 5. r/o pna Plan - check renal ultrasound - send ua and lytes - calc fena - stop ibuporfen, which may have contributed Dr Lim
[2017-04-16] MEDS: PIPERACILLIN/TAZOB 3.375 GM 3.375 GM in DEXTROSE 5%-WATER - 100 ML IVPB SCH ×2 (18:08)
--- NOTE | 2017-04-16 20:57 | CONSULT ---
Consult - text type - Consultation Consultation Note: Pulm/CCM consult Pt seen and examined in ICU CC: dislodged trach tube HPI: pt well know to our service. Mr Downs is a 56 yo M [facility] resident with a PMH of HLD, COPD, Lung CA, G tube, s/p Tracheostomy with plastic reconstruction w/ Dr Olivares in past, apparently intermittently on trach collar at [place].Today presented to the ED with respiratory distress with dislodged trach. Was cyanotic and unable to be ventilated by EM. Urgently transfered to ED where pt was bradycardic and hypoxic. ETT was placed via stoma with quick rebound in VS and oxygenation. There was significant secretions in airway and pt was started on broad spectrum abx. Cxr was largely clear with no new apparent infiltrate. Labs were notable for bump in Cr to 1.4 from baseline on last admit around 0.6. Renal US negative for obstruction, making adequate urine. Studies to be sent. Pt transferred to ICU given relatively undstable airway. Trach to be replaced and re-secured in OR tomorrow, apparently this has occurred before. In ICU pt awake, alert, without distress. No SQ air on exam, getting TV adequately on Vent with peak pressures in 20s, moderate thin clear secretions from ETT. He is afebrile, normotensive, without distress and denies acute complaints. Past Medical History Cardio/Vascular CAD,HTN,Hyperlipdemia Pulmonary Other (Lung CA) Heme/Onc Cancer ENT Other (Laryngeal Ca) Ambulatory Orders Atorvastatin Ca [Lipitor] 10 mg PO HS 12/23/16 Sertraline HCl [Zoloft] 100 mg PO BID 12/23/16 Allopurinol [Zyloprim -] 100 mg PO DAILY 02/12/17 Aspirin [ASA -] 81 mg PO DAILY 02/12/17 Acetylcysteine Po/INH 20% [Mucomyst 20 Oral / INH Use Only*] 600 mg NEB TIDR #5 vial 04/09/17 Albuterol 0.083% Nebulizer Va [Ventolin 0.083% Nebulizer Soln -] 1 amp NEB Q6H PRN #120 amp 04/09/17 Albuterol Sulfate 0.5% [Ventolin 0.5% Nebulizing Soln. -] 1 amp NEB Q4H PRN # 180 amp 04/09/17 Amlodipine Besylate [Norvasc -] 10 mg PO DAILY #30 tablet 04/09/17 Bacitracin - [Bacitracin Topical Ointment -] 1 applic TP BID #4 tube 04/09/17 Chlordiazepoxide [Librium -] 15 mg PO HS #30 capsule MDD 15 04/09/17 Gabapentin [Neurontin -] 400 mg PO TID #90 capsule 04/09/17 Heparin - 5,000 unit SQ TID #1 vial 04/09/17 Ibuprofen [Motrin -] 400 mg PO Q6H PRN #120 tablet 04/09/17 Metoprolol Tartrate [Lopressor -] 25 mg PO BID #60 tablet 04/09/17 Mineral Oil/Petrolat,Wht/Water [Eucerin (Large Jar) -] 1 applic TP DAILY PRN #1 jar 04/09/17 Multivitamins [Multivit ([facility] Formulary)] 1 tab PO DAILY #30 tab 04/09/17 Nicotine Patch [Nicoderm Patch -] 14 mg TD DAILY #30 patch 04/09/17 Nystatin Powder [Nystop Powder -] 1 applic TP BID #1 applic 04/09/17 Ondansetron [Zofran Odt -] 8 mg SL Q8H PRN #90 tab.rapdis 04/09/17 Polyethylene Glycol 3350 [Miralax 119 gm Btl -] 17 gm PO DAILY PRN #4 bottle Quetiapine Fumarate "Xr" [Seroquel XR] 300 mg PO HS@2000 #30 tablet 04/09/17 Sodium Chloride Nasal [place] [[place] Goodrich Nasal Goodrich -] 2 spray NS BID PRN #1 spray 04/09/17 Thiamine HCl [Vitamin B1 -] 100 mg PO DAILY #30 tablet 04/09/17 Zinc Oxide 1 applic TP BID #3 tube 04/09/17 Levofloxacin [Levaquin] 750 mg PO DAILY #7 tablet 04/11/17 Active Medications Acetaminophen (Ofirmev Injection -) 1,000 mg IVPB Q6H PRN PRN Reason: FEVER OR PAIN Midazolam HCl 100 mg/ Sodium (Chloride) 100 mls @ 1 mls/hr IVPB TITR JUNIOR; 1 MG/ HR PRN Reason: Protocol Last Admin: 04/16/17 13:03 Dose: 9 mg/hr, 9 mls/hr Sodium Chloride (Normal Saline -) 1,000 mls @ 83 mls/hr IV ASDIR JUNIOR Last Admin: 04/16/17 13:12 Dose: 83 mls/hr Piperacillin Sod/Tazobactam (Sod 3.375 gm/ Dextrose) 100 mls @ 200 mls/hr IVPB Q8H-IV JUNIOR PRN Reason: Protocol Last Admin: 04/16/17 18:08 Dose: 200 mls/hr Ondansetron HCl (Zofran Injection) 4 mg IVPUSH Q6H PRN PRN Reason: NAUSEA AND/OR VOMITING Pantoprazole Sodium (Protonix Iv) 40 mg IVPUSH DAILY [facility] Last Admin: 04/16/17 13:12 Dose: 40 mg Vital Signs Temp 98.2 F 04/16/17 14:00 Pulse 60 04/16/17 16:06 Resp 12 04/16/17 20:37 BP 122/78 04/16/17 16:00 Pulse Ox 100 04/16/17 16:06 Intake & Output 04/15/17 04/16/17 04/16/17 23:59 11:59 23:59 Intake Total 1000 748 Output Total 400 Balance 1000 348 Weight 86.183 kg 94.3 kg Intake: IV 1000 648 Normal Saline - 1,000 ml 600 @ 1000 mls/hr IV ASDIR STA Rx#:[id number] Normal Saline - 1,000 ml 1000 @ 83 mls/hr IV ASDIR JUNIOR Rx#:[id number] Versed - 100 mg In Normal 48 Saline - 100 ml @ 1 MG/ HR 1 mls/hr IVPB TITR JUNIOR Rx#:[id number] IVPB 100 Output: Urine 400 External Catheter 400 Other: Voiding Method Indwelling Catheter Height 6 ft 3 in Body Mass Index (BMI) 23.7 Weight Measurement Method Built in [facility] Weight Measurement Method Estimated by Staff CBCD WBC 7.1 K/mm3 (4.0-10.0) 04/16/17 08:14 RBC 3.79 M/mm3 (4.00-5.60) L 04/16/17 08:14 Hgb 11.2 GM/dL (11.7-16.9) L 04/16/17 08:14 Hct 34.8 % (35.4-49) L 04/16/17 08:14 MCV 91.7 fl (80-96) 04/16/17 08:14 MCHC 32.2 g/dl (32.0-35.9) 04/16/17 08:14 RDW 13.9 % (11.9-15.9) 04/16/17 08:14 Plt Count 209 K/MM3 (134-434) 04/16/17 08:14 MPV 9.5 fl (7.5-11.1) 04/16/17 08:14 CMP Sodium 142 mmol/L (136-145) 04/16/17 08:20 Potassium 4.0 mmol/L (3.5-5.1) 04/16/17 08:20 Chloride 104 mmol/L (98-107) 04/16/17 08:20 Carbon Dioxide 28 mmol/L (21-32) D 04/16/17 08:20 Anion Gap 10 (8-16) 04/16/17 08:20 BUN 19 mg/dL (7-18) H D 04/16/17 08:20 Creatinine 1.4 mg/dL (0.7-1.3) H D 04/16/17 08:20 Creat Clearance w eGFR 52.24 (>60) 04/16/17 08:20 Calcium 9.0 mg/dL (8.5-10.1) 04/16/17 08:20 Total Bilirubin 0.3 mg/dL (0.2-1.0) D 04/16/17 08:20 AST 14 U/L (15-37) L D 04/16/17 08:20 ALT 23 U/L (12-78) D 04/16/17 08:20 Alkaline Phosphatase 70 U/L (45-117) 04/16/17 08:20 Total Protein 7.4 g/dl (6.4-8.2) 04/16/17 08:20 Albumin 3.2 g/dl (3.4-5.0) L 04/16/17 08:20 CXR: ETT at level of alexis, (apparently pulled back a cm since) Renal US. unrevealing PE: Awake alert middle age man, chronically ill appearing INAD HEENT: 7.0 ETT via stoma,secured with ties, no sq emphysema noted PULM: scattered rhonchi CV: RRR, no mr/r/g appreciated ABD: PEG CDI, +BS EXT: frail, no edema, no rash Neuro: intact A/ This is a 56 yo M [place] resident with a PMH of HLD, COPD, Lung CA, G tube, Tracheostomy presented with dislodgement and hypoxic resp failure now with ETT placed via stoma, hemodynamically stabilized awaiting replacement with bronch in am P/ full vent support trach/airway at bedside would hold off on cont abx given does not apppear infected volume for JOSE ICU monitoring restart home meds NPO except for meds after midnight Renny Couch ACNP [id number]
[2017-04-17] MEDS: PIPERACILLIN/TAZOB 3.375 GM 3.375 GM in DEXTROSE 5%-WATER - 100 ML IVPB SCH ×2 (01:28→10:01)
[2017-04-17 06:10] LABS: HEMATOCRIT 31.7 % (35.4-49); HEMOGLOBIN 10.7 GM/dL (11.7-16.9); MCH 30.4 pg (25.7-33.7); MCHC 33.6 g/dl (32.0-35.9); MEAN CELL VOLUME 90.4 fl (80-96); MEAN PLT VOLUME 9.5 fl (7.5-11.1); PLATELET COUNT 188 K/MM3 (134-434); RBC 3.51 M/mm3 (4.00-5.60); WHITE BLOOD COUNT 6.6 K/mm3 (4.0-10.0)
[2017-04-17 06:45] LABS: CHLORIDE 108 mmol/L (98-107); POTASSIUM 3.3 mmol/L (3.5-5.1); SODIUM 143 mmol/L (136-145)
[2017-04-17 06:53] LABS: ALBUMIN 2.9 g/dl (3.4-5.0); ALK PHOS 55 U/L (45-117); ANION GAP 11 (8-16); BILIRUBIN,TOTAL 0.4 mg/dL (0.2-1.0); BLOOD UREA NITROGEN 12 mg/dL (7-18); CALCIUM 8.4 mg/dL (8.5-10.1); CO2 24 mmol/L (21-32); GLUCOSE,RANDOM 86 mg/dL (74-106); LIPASE 97 U/L (73-393); SGOT/AST 14 U/L (15-37); SGPT/ALT 19 U/L (12-78); TOT PROT 6.3 g/dl (6.4-8.2)
--- NOTE | 2017-04-17 07:03 | PN ---
Physical Exam: SUBJECTIVE: Patient restrained but doing well this AM. Asking appropriate questions in writing regarding his course of action. States that he is ready for trach tube replacement. OBJECTIVE: Vital Signs Period Temp Pulse Resp BP Sys/Clay Pulse Ox Last 24 Hr 97.5 F-98.6 F 52-154 12 99-200/65-110 2-100 GENERAL: The patient is awake, alert, and fully oriented, in no acute distress. HEAD: Normal with no signs of trauma. EYES: PERRL, extraocular movements intact, sclera anicteric, conjunctiva clear. No ptosis. ENT: Ears normal, nares patent, oropharynx appears dry. ETT tube in place through C/D/I trach site. NECK: Trachea midline, with ETT protruding through trach site, full range of motion, supple. LUNGS: Breath sounds equal, clear to auscultation bilaterally, no wheezes, no crackles, no accessory muscle use. HEART: Regular rate and rhythm, S1, S2 without murmur, rub or gallop. ABDOMEN: Soft, nontender, nondistended, normoactive bowel sounds, no guarding, no rebound, no hepatosplenomegaly, no masses. EXTREMITIES: 2+ pulses, warm, well-perfused, no edema. NEUROLOGICAL: Seems to have some slight tremor but he states that it is his baseline. PSYCH: Normal mood, normal affect. SKIN: Warm, dry, normal turgor, no rashes or lesions noted Laboratory Results - last 24 hr 04/16/17 04/16/17 04/16/17 06:40 07:32 08:14 WBC 7.1 RBC 3.79 L Hgb 11.2 L Hct 34.8 L MCV 91.7 MCH 29.6 MCHC 32.2 RDW 13.9 Plt Count 209 MPV 9.5 Neutrophils % 65.4 D Lymphocytes % 24.2 D Monocytes % 6.0 D Eosinophils % 4.0 D Basophils % 0.4 PT with INR INR PTT (Actin FS) VBG pH POC VBG pCO2 POC VBG pO2 Mixed VBG HCO3 Sodium Potassium Chloride Carbon Dioxide Anion Gap BUN Creatinine Creat Clearance w eGFR Random Glucose Lactic Acid 1.8 Calcium Total Bilirubin AST ALT Alkaline Phosphatase Creatine Kinase Troponin I Total Protein Albumin Urine Color Yellow Urine Appearance Slcloudy Urine pH 5.0 Ur Specific [place] 1.013 Urine Protein 2+ H Urine Glucose (UA) 1+ H Urine Ketones Negative Urine Blood Negative Urine Nitrite Negative Urine Bilirubin Negative Urine Urobilinogen Negative Ur Leukocyte Esterase Negative Urine WBC (Auto) 4 Urine RBC (Auto) 3 Ur Epithelial Cells Rare Urine Bacteria Rare Hyaline Casts 7 Granular Casts 6 Urine Mucus Rare Urine Yeast Rare Ur Random Sodium Ur Random Potassium Ur Random Chloride Urine Creatinine Blood Type Antibody Screen 04/16/17 04/16/17 04/16/17 08:14 08:14 08:14 WBC RBC Hgb Hct MCV MCH MCHC RDW Plt Count MPV Neutrophils % Lymphocytes % Monocytes % Eosinophils % Basophils % PT with INR 12.50 H INR 1.11 PTT (Actin FS) 30.7 VBG pH 7.16 L* POC VBG pCO2 77.0 H* POC VBG pO2 32.2 Mixed VBG HCO3 26.3 H Sodium Potassium Chloride Carbon Dioxide Anion Gap BUN Creatinine Creat Clearance w eGFR Random Glucose Lactic Acid Calcium Total Bilirubin AST ALT Alkaline Phosphatase Creatine Kinase Troponin I Total Protein Albumin Urine Color Urine Appearance Urine pH Ur Specific [place] Urine Protein Urine Glucose (UA) Urine Ketones Urine Blood Urine Nitrite Urine Bilirubin Urine Urobilinogen Ur Leukocyte Esterase Urine WBC (Auto) Urine RBC (Auto) Ur Epithelial Cells Urine Bacteria Hyaline Casts Granular Casts Urine Mucus Urine Yeast Ur Random Sodium Ur Random Potassium Ur Random Chloride Urine Creatinine Blood Type O POSITIVE Antibody Screen Negative 04/16/17 04/16/17 04/16/17 08:20 18:15 18:15 WBC RBC Hgb Hct MCV MCH MCHC RDW Plt Count MPV Neutrophils % Lymphocytes % Monocytes % Eosinophils % Basophils % PT with INR INR PTT (Actin FS) VBG pH POC VBG pCO2 POC VBG pO2 Mixed VBG HCO3 Sodium 142 Potassium 4.0 Chloride 104 Carbon Dioxide 28 D Anion Gap 10 BUN 19 H D Creatinine 1.4 H D Creat Clearance w eGFR 52.24 Random Glucose 207 H D Lactic Acid Calcium 9.0 Total Bilirubin 0.3 D AST 14 L D ALT 23 D Alkaline Phosphatase 70 Creatine Kinase 22 L Troponin I < 0.02 Total Protein 7.4 Albumin 3.2 L Urine Color Urine Appearance Urine pH Ur Specific [place] Urine Protein Urine Glucose (UA) Urine Ketones Urine Blood Urine Nitrite Urine Bilirubin Urine Urobilinogen Ur Leukocyte Esterase Urine WBC (Auto) Urine RBC (Auto) Ur Epithelial Cells Urine Bacteria Hyaline Casts Granular Casts Urine Mucus Urine Yeast Ur Random Sodium 102 102 Ur Random Potassium 41.3 Ur Random Chloride 129 Urine Creatinine Blood Type Antibody Screen 04/16/17 04/17/17 18:15 05:10 WBC 6.6 RBC 3.51 L Hgb 10.7 L Hct 31.7 L MCV 90.4 MCH 30.4 MCHC 33.6 RDW 14.0 Plt Count 188 MPV 9.5 Neutrophils % Lymphocytes % Monocytes % Eosinophils % Basophils % PT with INR INR PTT (Actin FS) VBG pH POC VBG pCO2 POC VBG pO2 Mixed VBG HCO3 Sodium Potassium Chloride Carbon Dioxide Anion Gap BUN Creatinine Creat Clearance w eGFR Random Glucose Lactic Acid Calcium Total Bilirubin AST ALT Alkaline Phosphatase Creatine Kinase Troponin I Total Protein Albumin Urine Color Urine Appearance Urine pH Ur Specific [place] Urine Protein Urine Glucose (UA) Urine Ketones Urine Blood Urine Nitrite Urine Bilirubin Urine Urobilinogen Ur Leukocyte Esterase Urine WBC (Auto) Urine RBC (Auto) Ur Epithelial Cells Urine Bacteria Hyaline Casts Granular Casts Urine Mucus Urine Yeast Ur Random Sodium Ur Random Potassium Ur Random Chloride Urine Creatinine 50.0 Blood Type Antibody Screen Active Medications Generic Name Dose Route Start Last Admin Trade Name Freq PRN Reason Stop Dose Admin Acetaminophen 1,000 mg 04/16/17 11:39 Ofirmev Injection - IVPB Q6H PRN FEVER OR PAIN Midazolam HCl 100 mg/ Sodium 100 mls @ 1 mls/hr 04/16/17 08:30 04/16/17 23:00 Chloride IVPB 10 mg/hr TITR JUNIOR 10 mls/hr Protocol Titration 1 MG/HR Sodium Chloride 1,000 mls @ 83 mls/hr 04/16/17 11:45 04/16/17 13:12 Normal Saline - IV 83 mls/hr ASDIR JUNIOR Administration Piperacillin Sod/Tazobactam 100 mls @ 200 mls/hr 04/16/17 14:00 04/17/17 01: 28 Sod 3.375 gm/ Dextrose IVPB 200 mls/hr Q8H-IV JUNIOR Administration Protocol Ondansetron HCl 4 mg 04/16/17 11:39 Zofran Injection IVPUSH Q6H PRN NAUSEA AND/OR VOMITING Pantoprazole Sodium 40 mg 04/16/17 11:45 04/16/17 13:12 Protonix Iv IVPUSH 40 mg DAILY JUNIOR Administration Quetiapine Fumarate 300 mg 04/16/17 20:00 04/16/17 22:04 Seroquel Xr - PO 300 mg HS@2000 [facility] Administration ASSESSMENT/PLAN: Mr Downs is a 56 [facility] M [facility] resident with a PMH of HLD, COPD, Lung CA , G tube, s/p Tracheostomy with plastic reconstruction w/ Dr Olivares in past, currently on with ETT tube in trach opening because of disloged trach and hypoxic failure in the ED. Neuro: #Agitation: Patient typically pulls at his trach tube and dislodges it so he was restrained overnight. - On Versed for sedation - continue restraints as needed - Slight tremor at baseline, but has had history of EtOH withdrawl - Continue Librium if versed DC'd Pulm: #Dislodged trach: Patient is well known to our hospital for trach displacement. - Will attempt trach placement at bedside - Touched base with Dr. Bledsoe for him to place it in case of failure. - Will continue vent support s/p - Will DC abx as no infectious etiology is of concern Renal: # JOSE - resolved - continue hydration 83/hr FEN: - will replete K - Can eat PO pending bedside swallow - IV hydration 83/ hr Dispo: - Will tx to floor if bedside trach placement successful Visit type - Emergency Visit Emergency Visit: No - New Patient This patient is new to me today: No - Critical Care Critical Care patient: Yes Total Critical Care Time (in minutes): 35 Critical Care Statement: The care of this patient involved high complexity decision making to prevent further life threatening deterioration of the patient 's condition and/or to evaluate & treat vital organ system(s) failure or risk of failure. - Discharge Referral Referred to [facility] No
[2017-04-17] MEDS ORDERED: POTASSIUM CHLORIDE 20 MEQ PREMIX IVPB 100 ML IVPB ONE (09:21)
[2017-04-17] MEDS: MIDAZOLAM 100 MG in SODIUM CHLORIDE 100 ML IVPB SCH (09:59)
[2017-04-17] MEDS: PANTOPRAZOLE SODIUM 40 MG VIAL IVPUSH SCH (10:00)
--- NOTE | 2017-04-17 11:02 | PN ---
Progress Note, Physician History of Present Illness: Awake but sedated Becomes agitated when awakened Breathing non-labored on ventilator Afebrile WBC WNL BC no growth CXR congestion bilaterally - Current Medication List Current Medications: Active Medications Acetaminophen (Ofirmev Injection -) 1,000 mg IVPB Q6H PRN PRN Reason: FEVER OR PAIN Midazolam HCl 100 mg/ Sodium (Chloride) 100 mls @ 1 mls/hr IVPB TITR JUNIOR; 1 MG/ HR PRN Reason: Protocol Last Admin: 04/17/17 09:59 Dose: 10 mg/hr, 10 mls/hr Sodium Chloride (Normal Saline -) 1,000 mls @ 83 mls/hr IV ASDIR JUNIOR Last Admin: 04/16/17 13:12 Dose: 83 mls/hr Piperacillin Sod/Tazobactam (Sod 3.375 gm/ Dextrose) 100 mls @ 200 mls/hr IVPB Q8H-IV JUNIOR PRN Reason: Protocol Last Admin: 04/17/17 10:01 Dose: 200 mls/hr Ondansetron HCl (Zofran Injection) 4 mg IVPUSH Q6H PRN PRN Reason: NAUSEA AND/OR VOMITING Pantoprazole Sodium (Protonix Iv) 40 mg IVPUSH DAILY [facility] Last Admin: 04/17/17 10:00 Dose: 40 mg Quetiapine Fumarate (Seroquel Xr -) 300 mg PO HS@2000 JUNIOR Last Admin: 04/16/17 22:04 Dose: 300 mg - Objective Vital Signs: Vital Signs Temperature 97.6 F 04/17/17 06:00 Pulse Rate 49 L 04/17/17 10:00 Respiratory Rate 14 04/17/17 10:00 Blood Pressure 145/85 04/17/17 10:00 O2 Sat by Pulse Oximetry (%) 99 04/17/17 09:40 Constitutional: Yes: No Distress Cardiovascular: Yes: Regular Rate and Rhythm, S1, S2 Respiratory: Yes: Mechanically Ventilated Gastrointestinal: Yes: Normal Bowel Sounds, Soft, Other (+GT). No: Tenderness Edema: Yes Edema: LLE: 1+, RLE: 1+ Labs: CBC, BMP 04/17/17 05:10 04/17/17 05:10 INR, PTT INR 1.11 (0.82-1.09) 04/16/17 08:14 Assessment/Plan Respiratory failure Possible aspiration Head and neck ca For replacement of tracheostomy today D/C antibiotics next 24hr
--- NOTE | 2017-04-17 11:17 | PN ---
Progress Note, Physician Chief Complaint: AWAKE ALERT TRACH CHANGE BEDSIDE - Current Medication List Current Medications: Active Medications Acetaminophen (Ofirmev Injection -) 1,000 mg IVPB Q6H PRN PRN Reason: FEVER OR PAIN Midazolam HCl 100 mg/ Sodium (Chloride) 100 mls @ 1 mls/hr IVPB TITR JUNIOR; 1 MG/ HR PRN Reason: Protocol Last Admin: 04/17/17 09:59 Dose: 10 mg/hr, 10 mls/hr Sodium Chloride (Normal Saline -) 1,000 mls @ 83 mls/hr IV ASDIR JUNIOR Last Admin: 04/16/17 13:12 Dose: 83 mls/hr Piperacillin Sod/Tazobactam (Sod 3.375 gm/ Dextrose) 100 mls @ 200 mls/hr IVPB Q8H-IV JUNIOR PRN Reason: Protocol Last Admin: 04/17/17 10:01 Dose: 200 mls/hr Ondansetron HCl (Zofran Injection) 4 mg IVPUSH Q6H PRN PRN Reason: NAUSEA AND/OR VOMITING Pantoprazole Sodium (Protonix Iv) 40 mg IVPUSH DAILY [facility] Last Admin: 04/17/17 10:00 Dose: 40 mg Quetiapine Fumarate (Seroquel Xr -) 300 mg PO HS@1999 [facility] Last Admin: 04/16/17 22:04 Dose: 300 mg - Objective Vital Signs: Vital Signs Temperature 97.5 F L 04/17/17 10:00 Pulse Rate 49 L 04/17/17 10:00 Respiratory Rate 14 04/17/17 10:00 Blood Pressure 145/85 04/17/17 10:00 O2 Sat by Pulse Oximetry (%) 99 04/17/17 09:40 Constitutional: Yes: Mild Distress Eyes: Yes: WNL HENT: Yes: WNL Neck: Yes: WNL Cardiovascular: Yes: WNL Respiratory: Yes: Other (TRACH) Gastrointestinal: Yes: WNL Genitourinary: Yes: Incontinence Extremities: Yes: WNL Edema: No Peripheral Pulses WNL: Yes Integumentary: Yes: WNL Wound/Incision: Yes: Clean/Dry Neurological: Yes: WNL ...Motor Strength: WNL Psychiatric: Yes: WNL Labs: CBC, BMP 04/17/17 05:10 04/17/17 05:10 INR, PTT INR 1.11 (0.82-1.09) 04/16/17 08:14 Problem List - Problems (1) JOSE (acute kidney injury) Code(s): N17.9 - ACUTE KIDNEY FAILURE, UNSPECIFIED (2) Acute respiratory failure with hypoxia Code(s): J96.01 - ACUTE RESPIRATORY FAILURE WITH HYPOXIA (3) Bradycardia Code(s): R00.1 - BRADYCARDIA, UNSPECIFIED (4) Respiratory failure Code(s): J96.90 - RESPIRATORY FAILURE, UNSP, UNSP W HYPOXIA OR HYPERCAPNIA Qualifiers: Chronicity: acute on chronic (5) COPD (chronic obstructive pulmonary disease) Code(s): J44.9 - CHRONIC OBSTRUCTIVE PULMONARY DISEASE, UNSPECIFIED Qualifiers: COPD type: unspecified COPD Qualified Code(s): J44.9 - Chronic obstructive pulmonary disease, unspecified (6) Laryngeal squamous cell carcinoma Code(s): C32.9 - MALIGNANT NEOPLASM OF LARYNX, UNSPECIFIED Assessment/Plan TRACH CHANGE STOP IV ABX CULTURES NEG NO FEVER NO LEUK DC PLANNING TOMORROW
[2017-04-17] MEDS ORDERED: PROPOFOL 1,000,000 MCG/100 ML VIAL ONE (11:24)
[2017-04-17] MEDS ORDERED: PROPOFOL 20 ML ONE (11:25)
--- NOTE | 2017-04-17 11:59 | PROC ---
Intubation - Intubation Reason for Intubation: Other (tracheostomy tube replacement) Time of Intubation: 11:30 Blade used: trach blade Tube position confirmed by: Chest x-ray, Breath sounds Breath Sounds after Intubation: equal Post Intubation Xray: Yes (In place) Remarks: 8.0 trach tube was placed in his tracheostomy site after previous ETT was ventilated on 100% FiO2 via ETT in trach site, given 5 of propofol, and ETT removed. No bleeding or resistance with trach placement. Confirmed on Vent with TVs, breath sounds, and CXR.
--- NOTE | 2017-04-17 12:32 | PN ---
Teaching Attending Note Name of Resident: Arnoldo Ramsay ATTENDING PHYSICIAN STATEMENT I saw and evaluated the patient. I reviewed the resident's note and discussed the case with the resident. I agree with the resident's findings and plan as documented. SUBJECTIVE: Patient seen and examined in the ICU. Awake and alert. AC mode of vent via an ETT in the Tracheotomy. Size 8 Trach was placed under propofol at the bedside. No immediate complications noted. Intake & Output 04/14/17 04/15/17 04/16/17 04/17/17 23:59 23:59 23:59 23:59 Intake Total 2118 802.5 Output Total 1100 300 Balance 1018 502.5 Weight 207 lb 14.334 oz 211 lb 6.773 oz Last Vital Signs Temp Pulse Resp BP Pulse Ox 97.4 F L 53 L 16 141/91 99 04/17/17 12:00 04/17/17 12:00 04/17/17 12:09 04/17/17 12:00 04/17/17 09:40 Active Medications Acetaminophen (Ofirmev Injection -) 1,000 mg IVPB Q6H PRN PRN Reason: FEVER OR PAIN Midazolam HCl 100 mg/ Sodium (Chloride) 100 mls @ 1 mls/hr IVPB TITR JUNIOR; 1 MG/ HR PRN Reason: Protocol Last Admin: 04/17/17 09:59 Dose: 10 mg/hr, 10 mls/hr Sodium Chloride (Normal Saline -) 1,000 mls @ 83 mls/hr IV ASDIR JUNIOR Last Admin: 04/16/17 13:12 Dose: 83 mls/hr Piperacillin Sod/Tazobactam (Sod 3.375 gm/ Dextrose) 100 mls @ 200 mls/hr IVPB Q8H-IV JUNIOR PRN Reason: Protocol Last Admin: 04/17/17 10:01 Dose: 200 mls/hr Ondansetron HCl (Zofran Injection) 4 mg IVPUSH Q6H PRN PRN Reason: NAUSEA AND/OR VOMITING Pantoprazole Sodium (Protonix Iv) 40 mg IVPUSH DAILY [facility] Last Admin: 04/17/17 10:00 Dose: 40 mg Quetiapine Fumarate (Seroquel Xr -) 300 mg PO HS@2000 [facility] Last Admin: 04/16/17 22:04 Dose: 300 mg GEN: Awake and alert, NAD HEENT: 7.0 ETT via stoma,secured with ties, no sq emphysema noted PULM: few scattered rhonchi CV: RRR, no mr/r/g appreciated ABD: PEG CDI, +BS EXT: frail, no edema, no rash Neuro: intact Laboratory Results - last 24 hr 04/16/17 04/16/17 04/16/17 06:40 18:15 18:15 WBC RBC Hgb Hct MCV MCH MCHC RDW Plt Count MPV Sodium Potassium Chloride Carbon Dioxide Anion Gap BUN Creatinine Creat Clearance w eGFR Random Glucose Calcium Total Bilirubin AST ALT Alkaline Phosphatase Total Protein Albumin Lipase Ur Leukocyte Esterase Negative Ur Random Sodium 102 102 Ur Random Potassium 41.3 Ur Random Chloride 129 Urine Creatinine 04/16/17 04/17/17 04/17/17 18:15 05:10 05:10 WBC 6.6 RBC 3.51 L Hgb 10.7 L Hct 31.7 L MCV 90.4 MCH 30.4 MCHC 33.6 RDW 14.0 Plt Count 188 MPV 9.5 Sodium 143 Potassium 3.3 L Chloride 108 H Carbon Dioxide 24 Anion Gap 11 BUN 12 D Creatinine 1.0 D Creat Clearance w eGFR > 60 Random Glucose 86 D Calcium 8.4 L Total Bilirubin 0.4 D AST 14 L ALT 19 Alkaline Phosphatase 55 D Total Protein 6.3 L Albumin 2.9 L Lipase 97 Ur Leukocyte Esterase Ur Random Sodium Ur Random Potassium Ur Random Chloride Urine Creatinine 50.0 IMP: Acute on chronic respiratory failure HPL COPD Lung CA G tube Chronic Tracheostomy PLAN: AC mode of vent Trach changed at the bedside Can D/C ABX for now Wean trials as tolerated Dr Esquivel Critical care time spent in reviewing chart, evaluating patient and formulating plan - 40 minutes.
[2017-04-17] MEDS ORDERED: PROPOFOL 200 MG/20 ML VIAL IVPUSH ONE ×2 (15:17→15:45)
--- NOTE | 2017-04-17 16:12 | PN ---
Progress Note, Physician History of Present Illness: Pt seen and examine at bedside. He is awake and appears comfortable. - Current Medication List Current Medications: Active Medications Acetaminophen (Ofirmev Injection -) 1,000 mg IVPB Q6H PRN PRN Reason: FEVER OR PAIN Midazolam HCl 100 mg/ Sodium (Chloride) 100 mls @ 1 mls/hr IVPB TITR JUNIOR; 1 MG/ HR PRN Reason: Protocol Last Admin: 04/17/17 09:59 Dose: 10 mg/hr, 10 mls/hr Sodium Chloride (Normal Saline -) 1,000 mls @ 83 mls/hr IV ASDIR JUNIOR Last Admin: 04/16/17 13:12 Dose: 83 mls/hr Ondansetron HCl (Zofran Injection) 4 mg IVPUSH Q6H PRN PRN Reason: NAUSEA AND/OR VOMITING Pantoprazole Sodium (Protonix Iv) 40 mg IVPUSH DAILY [facility] Last Admin: 04/17/17 10:00 Dose: 40 mg Propofol (Diprivan -) 5,000 mcg IVPUSH ONCE ONE Stop: 04/17/17 15:46 Quetiapine Fumarate (Seroquel Xr -) 300 mg PO HS@1999 [facility] Last Admin: 04/16/17 22:04 Dose: 300 mg - Objective Vital Signs: Vital Signs Temperature 97.4 F L 04/17/17 12:00 Pulse Rate 53 L 04/17/17 12:00 Respiratory Rate 27 H 04/17/17 14:15 Blood Pressure 141/91 04/17/17 12:00 O2 Sat by Pulse Oximetry (%) 99 04/17/17 09:40 Constitutional: Yes: Calm Eyes: Yes: Conjunctiva Clear Cardiovascular: Yes: S1, S2 Respiratory: Yes: Mechanically Ventilated Gastrointestinal: Yes: Soft Genitourinary: Yes: Other ([place] cath) Musculoskeletal: Yes: Muscle Weakness Edema: No Neurological: Yes: Oriented Labs: CBC, BMP 04/17/17 05:10 04/17/17 05:10 INR, PTT INR 1.11 (0.82-1.09) 04/16/17 08:14 - ....Imaging Chest X-ray: Report Reviewed Problem List - Problems (1) Bradycardia Code(s): R00.1 - BRADYCARDIA, UNSPECIFIED (2) Respiratory failure Code(s): J96.90 - RESPIRATORY FAILURE, UNSP, UNSP W HYPOXIA OR HYPERCAPNIA Qualifiers: Chronicity: acute on chronic (3) COPD (chronic obstructive pulmonary disease) Code(s): J44.9 - CHRONIC OBSTRUCTIVE PULMONARY DISEASE, UNSPECIFIED Qualifiers: COPD type: unspecified COPD Qualified Code(s): J44.9 - Chronic obstructive pulmonary disease, unspecified Assessment/Plan Current Medications Generic Name Dose Route Start Last Admin Trade Name Freq PRN Reason Stop Dose Admin Acetaminophen 1,000 mg 04/16/17 11:39 Ofirmev Injection - IVPB Q6H PRN FEVER OR PAIN Midazolam HCl 100 mg/ Sodium 100 mls @ 1 mls/hr 04/16/17 08:30 04/17/17 09:59 Chloride IVPB 10 mg/hr TITR JUNIOR 10 mls/hr Protocol Administration 1 MG/HR Sodium Chloride 1,000 mls @ 83 mls/hr 04/16/17 11:45 04/16/17 13:12 Normal Saline - IV 83 mls/hr ASDIR JUNIOR Administration Ondansetron HCl 4 mg 04/16/17 11:39 Zofran Injection IVPUSH Q6H PRN NAUSEA AND/OR VOMITING Pantoprazole Sodium 40 mg 04/16/17 11:45 04/17/17 10:00 Protonix Iv IVPUSH 40 mg DAILY JUNIOR Administration Propofol 5,000 mcg 04/17/17 15:45 Diprivan - IVPUSH 04/17/17 15:46 ONCE ONE Quetiapine Fumarate 300 mg 04/16/17 20:00 04/16/17 22:04 Seroquel Xr - PO 300 mg HS@2000 JUNIOR Administration cardio s1s2 reg pulm trache GI peg ext neg edema neuro responds to commands Impression 1. azotemia 2. hypoxia 3. lung cancer 4. HTN 5. r/o pna Plan - renal function has returned to baseline - likely secondary to dehydration - can stop fluids - monitor bp - avoid nsaids Dr Lim
[2017-04-17] MEDS: SODIUM CHLORIDE 1,000 ML IV SCH (16:58)
[2017-04-17] MEDS ORDERED: ACETAMINOPHEN 1000 MG/100 ML VIAL (NON FORMULARY) IVPB PRN (19:35)
[2017-04-17] MEDS ORDERED: ONDANSETRON 4 MG/2 ML VIAL IVPUSH PRN (19:35)
[2017-04-17] MEDS ORDERED: SODIUM CHLORIDE 1,000 ML IV SCH (19:35)
[2017-04-17] MEDS ORDERED: PT OWN MED DRAWER 7, Y5N ONE (20:49)
[2017-04-17] MEDS: LORazepam 2 MG/ML SDV VIAL IVPUSH PRN (21:48)
--- NOTE | 2017-04-18 01:39 | RAPID ---
Physical Examination Vital Signs: Vital Signs Temperature 98.1 F 04/17/17 18:00 Pulse Rate 64 04/17/17 20:00 Respiratory Rate 16 04/18/17 00:06 Blood Pressure 143/98 04/17/17 20:00 O2 Sat by Pulse Oximetry (%) 100 04/17/17 14:00 Findings/Remarks: Was outside of door when nurse stated pt had his trach pulled out Called rapid response due to unknown management of tracheostomy tubes --Pt was then placed on bag ventilation never desaturating below 92% Anesthesia was called to place new trach Trach was replaced, balloon was inflated and trach was secured to pt Pt continues to have SpO2 of 100% with regular rate of breathing Previously pt had multiple episodes of this, however will give pt benefit of the doubt and trial without 1:1 for now --On previous hospitalization pt would get more irritated and uncooperative with 1:1 --If trach is seen to be removed again, will place 1:1 and consider another psych eval. Labs: CBC, BMP 04/17/17 05:10 04/17/17 05:10
[2017-04-18] MEDS: LORazepam 2 MG/ML SDV VIAL IVPUSH PRN ×2 (03:03→22:01)
[2017-04-18 07:45] LABS: BASO % 0.8 % (0-2.0); EOS % 3.6 % (0-4.5); HEMATOCRIT 31.1 % (35.4-49); HEMOGLOBIN 10.3 GM/dL (11.7-16.9); LYMPH % 22.5 % (8-40); MCH 29.8 pg (25.7-33.7); MCHC 33.3 g/dl (32.0-35.9); MEAN CELL VOLUME 89.7 fl (80-96); MEAN PLT VOLUME 9.4 fl (7.5-11.1); NEUT % 62.1 % (42.8-82.8); PLATELET COUNT 191 K/MM3 (134-434); RBC 3.47 M/mm3 (4.00-5.60); WHITE BLOOD COUNT 8.3 K/mm3 (4.0-10.0)
[2017-04-18 08:00] LABS: ALK PHOS 57 U/L (45-117); ANION GAP 12 (8-16); BILIRUBIN,TOTAL 0.6 mg/dL (0.2-1.0); BLOOD UREA NITROGEN 8 mg/dL (7-18); CALCIUM 8.5 mg/dL (8.5-10.1); CHLORIDE 107 mmol/L (98-107); CO2 22 mmol/L (21-32); CREATININE 0.9 mg/dL (0.7-1.3); GLUCOSE,RANDOM 90 mg/dL (74-106); PHOSPHOROUS 3.8 mg/dL (2.5-4.9); SGPT/ALT 18 U/L (12-78); SODIUM 141 mmol/L (136-145); TOT PROT 6.7 g/dl (6.4-8.2)
[2017-04-18 08:23] LABS: MAGNESIUM 1.6 mg/dL (1.8-2.4); POTASSIUM 3.6 mmol/L (3.5-5.1)
[2017-04-18 08:24] LABS: SGOT/AST 26 U/L (15-37)
--- NOTE | 2017-04-18 11:06 | PN ---
Progress Note (short form) - Note Progress Note: Patient seen and examined. Well known to me as I performed laryngectomy and bilateral neck dissections on him from which he is now well-recovered. He had many issues with behavior problems likely related to his alcoholism. This was mitigated by giving him librium. His tracheostomy tube also became dislodged several times after which I sutured in the tube with 2-0 prolene sutures. It is unclear how or when these were removed but seems that this occurred at the [facility]. At the [facility] the trach tube became dislodged and he returned to the ER having had an endotracheal tube placed in the trachea via the tracheostome. This was changed to a tracheostomy tube yesterday. Currently he is awake and alert in no distress. Tracheostomy tube is in place and he is tolerating trach collar. He is receiving G-tube feeds. On examination he is awake and alert and responding appropriately. Tracheostomy is in place. There is no palpable adenopathy in the neck. G-tube is in place and feeds infusing. Assessment: he is stable with tracheostomy in place on trach collar. He can be ordered for regular PO diet. Restraints should be removed when possible and he should be out of bed with assistance.
[2017-04-18] MEDS ORDERED: LIDOCAINE 1%/EPI 1:100000 (20 ML MULTI DOSE VIAL) ONE (11:13)
--- NOTE | 2017-04-18 11:24 | PN ---
Progress Note (short form) - Note Progress Note: PULMONARY AWAKE/ALERT WRIST RESTRAINTS WITH MITTENS VSS/AFEB/TRACH IN PLACE PALE/ANICTERIC SCATTERED RHONCHI S1S2 BS+ PEG NO EDEMA LABS/MEDS/NOTES/IMAGES REVIEWED Acute on chronic respiratory failure HPL COPD Lung CA/LARYNGEAL CA S/P TOTAL LARYNGECTOMY G tube Chronic Tracheostomy PLAN: Trach collar o2/ keep sats greater than 90% ENT SURG EVAL REVIEWED R JUAN CABRERA
--- NOTE | 2017-04-18 11:31 | PN ---
Progress Note (short form) - Note Progress Note: Tracheostomy tube sutured in place with four 2-0 prolene sutures. Recommend DC of restraints, urinary catheter and PO diet to relieve agitation. Call again if any issues with the airway.
[2017-04-18] MEDS: PANTOPRAZOLE SODIUM 40 MG VIAL IVPUSH SCH (11:45)
--- NOTE | 2017-04-18 18:44 | PN ---
Progress Note (short form) - Note Progress Note: s/p concha resolved Current Medications Acetaminophen (Ofirmev Injection -) 1,000 mg IVPB Q6H PRN PRN Reason: FEVER OR PAIN Lorazepam (Ativan Injection -) 2 mg IVPUSH Q4H PRN PRN Reason: AGITATION Last Admin: 04/18/17 03:03 Dose: 2 mg Ondansetron HCl (Zofran Injection) 4 mg IVPUSH Q6H PRN PRN Reason: NAUSEA AND/OR VOMITING Pantoprazole Sodium (Protonix Iv) 40 mg IVPUSH DAILY [facility] Last Admin: 04/18/17 11:45 Dose: 40 mg Quetiapine Fumarate (Seroquel Xr -) 300 mg PO HS@1999 [facility] Last Admin: 04/17/17 21:41 Dose: 300 mg Last Vital Signs Temp Pulse Resp BP Pulse Ox 98.9 F 88 20 141/79 99 04/18/17 14:09 04/18/17 14:09 04/18/17 14:09 04/18/17 14:09 04/18/17 11:00 lungs clear heart reg abd soft nontender CBC, BMP 04/18/17 07:15 04/18/17 07:15 Plan continue same management
--- NOTE | 2017-04-18 18:51 | PN ---
Progress Note, Physician Chief Complaint: Respiratory distress, dislodged trach History of Present Illness: NAD, Pulled out his trach X 2 with RR new trach sutured by ENT - Current Medication List Current Medications: Active Medications Acetaminophen (Ofirmev Injection -) 1,000 mg IVPB Q6H PRN PRN Reason: FEVER OR PAIN Lorazepam (Ativan Injection -) 2 mg IVPUSH Q4H PRN PRN Reason: AGITATION Last Admin: 04/18/17 03:03 Dose: 2 mg Ondansetron HCl (Zofran Injection) 4 mg IVPUSH Q6H PRN PRN Reason: NAUSEA AND/OR VOMITING Pantoprazole Sodium (Protonix Iv) 40 mg IVPUSH DAILY [facility] Last Admin: 04/18/17 11:45 Dose: 40 mg Quetiapine Fumarate (Seroquel Xr -) 300 mg PO HS@1999 [facility] Last Admin: 04/17/17 21:41 Dose: 300 mg - Objective Vital Signs: Vital Signs Temperature 98.9 F 04/18/17 14:09 Pulse Rate 88 04/18/17 14:09 Respiratory Rate 20 04/18/17 14:09 Blood Pressure 141/79 04/18/17 14:09 O2 Sat by Pulse Oximetry (%) 99 04/18/17 11:00 Constitutional: Yes: Well Nourished, No Distress, Calm Cardiovascular: Yes: Regular Rate and Rhythm Respiratory: Yes: Rhonchi (diffuse), Other (on trach collar) Musculoskeletal: Yes: WNL Extremities: Yes: WNL Neurological: Yes: Alert Psychiatric: Yes: Alert Labs: CBC, BMP 04/18/17 07:15 04/18/17 07:15 INR, PTT INR 1.11 (0.82-1.09) 04/16/17 08:14 Problem List - Problems (1) JOSE (acute kidney injury) Code(s): N17.9 - ACUTE KIDNEY FAILURE, UNSPECIFIED (2) Acute respiratory failure with hypoxia Code(s): J96.01 - ACUTE RESPIRATORY FAILURE WITH HYPOXIA (3) Bradycardia Code(s): R00.1 - BRADYCARDIA, UNSPECIFIED (4) COPD (chronic obstructive pulmonary disease) Code(s): J44.9 - CHRONIC OBSTRUCTIVE PULMONARY DISEASE, UNSPECIFIED Qualifiers: COPD type: unspecified COPD Qualified Code(s): J44.9 - Chronic obstructive pulmonary disease, unspecified (5) Laryngeal squamous cell carcinoma Code(s): C32.9 - MALIGNANT NEOPLASM OF LARYNX, UNSPECIFIED (6) Anxiety Code(s): F41.9 - ANXIETY DISORDER, UNSPECIFIED Assessment/Plan -seen by NET -Receiving PEG feeding for now -swallow eval -RD evaluation appreciated -1:1
[2017-04-18] MEDS ORDERED: PT OWN MED DRAWER 7, Y5N ONE (20:59)
[2017-04-19] MEDS: LORazepam 2 MG/ML SDV VIAL IVPUSH PRN ×4 (03:48→21:17)
[2017-04-19] MEDS: PANTOPRAZOLE SODIUM 40 MG VIAL IVPUSH SCH (09:47)
--- NOTE | 2017-04-19 12:35 | PN ---
Progress Note (short form) - Note Progress Note: PULMONARY AWAKE/ALERT WRIST RESTRAINTS WITH MITTENS REMOVED LAST NIGHT PATIENT PULLED OUT TRACH VSS/AFEB PALE/ANICTERIC SCATTERED RHONCHI S1S2 BS+ PEG NO EDEMA LABS/MEDS/NOTES/IMAGES REVIEWED Acute on chronic respiratory failure HPL COPD Lung CA/LARYNGEAL CA S/P TOTAL LARYNGECTOMY G tube Chronic Tracheostomy PLAN: Trach collar o2/ keep sats greater than 90% ENT SURG EVAL REVIEWED R JUAN CABRERA
--- NOTE | 2017-04-19 20:23 | PN ---
Progress Note, Physician Chief Complaint: Respiratory distress, dislodged trach History of Present Illness: NAD, Pulled out his trach X 2 with RR new trach sutured by ENT - Current Medication List Current Medications: Active Medications Acetaminophen (Ofirmev Injection -) 1,000 mg IVPB Q6H PRN PRN Reason: FEVER OR PAIN Lorazepam (Ativan Injection -) 2 mg IVPUSH Q4H PRN PRN Reason: AGITATION Last Admin: 04/19/17 14:21 Dose: 2 mg Ondansetron HCl (Zofran Injection) 4 mg IVPUSH Q6H PRN PRN Reason: NAUSEA AND/OR VOMITING Pantoprazole Sodium (Protonix Iv) 40 mg IVPUSH DAILY [facility] Last Admin: 04/19/17 09:47 Dose: 40 mg Quetiapine Fumarate (Seroquel Xr -) 300 mg PO HS@1999 [facility] Last Admin: 04/18/17 21:00 Dose: 300 mg - Objective Vital Signs: Vital Signs Temperature 99.2 F 04/19/17 18:03 Pulse Rate 81 04/19/17 18:03 Respiratory Rate 18 04/19/17 18:03 Blood Pressure 123/79 04/19/17 18:03 O2 Sat by Pulse Oximetry (%) 100 04/19/17 11:11 Constitutional: Yes: Well Nourished, No Distress, Calm Cardiovascular: Yes: Regular Rate and Rhythm Respiratory: Yes: Rhonchi (diffuse), Other (trach collar) Gastrointestinal: Yes: WNL Musculoskeletal: Yes: WNL Extremities: Yes: WNL Edema: No Peripheral Pulses WNL: Yes Neurological: Yes: Alert Psychiatric: Yes: Alert Labs: CBC, BMP 04/18/17 07:15 04/18/17 07:15 INR, PTT INR 1.11 (0.82-1.09) 04/16/17 08:14 Problem List - Problems (1) Acute respiratory failure with hypoxia Assessment/Plan: -on trach collar -trach sutured by ENT Code(s): J96.01 - ACUTE RESPIRATORY FAILURE WITH HYPOXIA (2) JOSE (acute kidney injury) Assessment/Plan: -improved -seen by Nephrology -continue to monitor Code(s): N17.9 - ACUTE KIDNEY FAILURE, UNSPECIFIED (3) Bradycardia Code(s): R00.1 - BRADYCARDIA, UNSPECIFIED (4) COPD (chronic obstructive pulmonary disease) Code(s): J44.9 - CHRONIC OBSTRUCTIVE PULMONARY DISEASE, UNSPECIFIED Qualifiers: COPD type: unspecified COPD Qualified Code(s): J44.9 - Chronic obstructive pulmonary disease, unspecified (5) Laryngeal squamous cell carcinoma Code(s): C32.9 - MALIGNANT NEOPLASM OF LARYNX, UNSPECIFIED Assessment/Plan -seen by NET -Receiving PEG feeding for now -swallow eval -RD evaluation appreciated
[2017-04-19] MEDS: MAGNESIUM OXIDE 400 MG TABLET (FP) PO SCH (21:17)
--- NOTE | 2017-04-19 21:30 | PN ---
Progress Note (short form) - Note Progress Note: s/p concha resolved Current Medications Acetaminophen (Ofirmev Injection -) 1,000 mg IVPB Q6H PRN PRN Reason: FEVER OR PAIN Lorazepam (Ativan Injection -) 2 mg IVPUSH Q4H PRN PRN Reason: AGITATION Last Admin: 04/19/17 21:17 Dose: 2 mg Magnesium Oxide (Mag-Ox -) 400 mg PO BID [facility] Last Admin: 04/19/17 21:17 Dose: 400 mg Ondansetron HCl (Zofran Injection) 4 mg IVPUSH Q6H PRN PRN Reason: NAUSEA AND/OR VOMITING Pantoprazole Sodium (Protonix Iv) 40 mg IVPUSH DAILY [facility] Last Admin: 04/19/17 09:47 Dose: 40 mg Quetiapine Fumarate (Seroquel Xr -) 300 mg PO HS@1999 [facility] Last Admin: 04/19/17 21:13 Dose: 300 mg Last Vital Signs Temp Pulse Resp BP Pulse Ox 99.2 F 81 18 123/79 100 04/19/17 18:03 04/19/17 18:03 04/19/17 18:03 04/19/17 18:03 04/19/17 11:11 lungs clear Heart reg Abd soft CBC, BMP 04/18/17 07:15 04/18/17 07:15 IMP- s/p concha resolved Plan- will sign off today please reconsult as needed
--- NOTE | 2017-04-20 10:56 | PN ---
Progress Note (short form) - Note Progress Note: PULMONARY AWAKE/ALERT WRIST RESTRAINTS WITH MITTENS REMOVED LAST NIGHT PATIENT PULLED OUT TRACH RESTRAINTS REPLACED VSS/AFEB PALE/ANICTERIC SCATTERED RHONCHI S1S2 BS+ PEG NO EDEMA LABS/MEDS/NOTES/IMAGES REVIEWED Acute on chronic respiratory failure HPL COPD Lung CA/LARYNGEAL CA S/P TOTAL LARYNGECTOMY G tube Chronic Tracheostomy PLAN: Trach collar o2/ keep sats greater than 90% ENT SURG EVAL REVIEWED ?PSYCH CONSULT Nannette MARTINEZ MD
[2017-04-20] MEDS: MAGNESIUM OXIDE 400 MG TABLET (FP) PO SCH ×2 (11:33→21:01)
[2017-04-20] MEDS: PANTOPRAZOLE SODIUM 40 MG VIAL IVPUSH SCH (11:33)
--- NOTE | 2017-04-20 12:50 | PN ---
Progress Note, Physician - Current Medication List Current Medications: Active Medications Acetaminophen (Ofirmev Injection -) 1,000 mg IVPB Q6H PRN PRN Reason: FEVER OR PAIN Lorazepam (Ativan Injection -) 2 mg IVPUSH Q4H PRN PRN Reason: AGITATION Last Admin: 04/19/17 21:17 Dose: 2 mg Magnesium Oxide (Mag-Ox -) 400 mg PO BID [facility] Last Admin: 04/20/17 11:33 Dose: 400 mg Ondansetron HCl (Zofran Injection) 4 mg IVPUSH Q6H PRN PRN Reason: NAUSEA AND/OR VOMITING Pantoprazole Sodium (Protonix Iv) 40 mg IVPUSH DAILY [facility] Last Admin: 04/20/17 11:33 Dose: 40 mg Quetiapine Fumarate (Seroquel Xr -) 300 mg PO HS@1999 [facility] Last Admin: 04/19/17 21:13 Dose: 300 mg - Objective Vital Signs: Vital Signs Temperature 98.0 F 04/20/17 10:00 Pulse Rate 80 04/20/17 10:00 Respiratory Rate 20 04/20/17 10:00 Blood Pressure 107/63 04/20/17 10:00 O2 Sat by Pulse Oximetry (%) 98 04/19/17 22:30 Labs: CBC, BMP 04/18/17 07:15 04/18/17 07:15 INR, PTT INR 1.11 (0.82-1.09) 04/16/17 08:14
--- NOTE | 2017-04-20 14:07 | PN ---
Progress Note, Physician History of Present Illness: NO NEW COMPLAINTS IN BED NAD - Current Medication List Current Medications: Active Medications Acetaminophen (Ofirmev Injection -) 1,000 mg IVPB Q6H PRN PRN Reason: FEVER OR PAIN Lorazepam (Ativan Injection -) 2 mg IVPUSH Q4H PRN PRN Reason: AGITATION Last Admin: 04/19/17 21:17 Dose: 2 mg Magnesium Oxide (Mag-Ox -) 400 mg PO BID [facility] Last Admin: 04/20/17 11:33 Dose: 400 mg Ondansetron HCl (Zofran Injection) 4 mg IVPUSH Q6H PRN PRN Reason: NAUSEA AND/OR VOMITING Pantoprazole Sodium (Protonix Iv) 40 mg IVPUSH DAILY [facility] Last Admin: 04/20/17 11:33 Dose: 40 mg Quetiapine Fumarate (Seroquel Xr -) 300 mg PO HS@1999 [facility] Last Admin: 04/19/17 21:13 Dose: 300 mg - Objective Vital Signs: Vital Signs Temperature 98.0 F 04/20/17 10:00 Pulse Rate 80 04/20/17 10:00 Respiratory Rate 20 04/20/17 10:00 Blood Pressure 107/63 04/20/17 10:00 O2 Sat by Pulse Oximetry (%) 98 04/19/17 22:30 Cardiovascular: Yes: Regular Rate and Rhythm Respiratory: Yes: Rhonchi, Other (TRACH) Gastrointestinal: Yes: Normal Bowel Sounds, Soft Labs: CBC, BMP 04/18/17 07:15 04/18/17 07:15 INR, PTT INR 1.11 (0.82-1.09) 04/16/17 08:14 Problem List - Problems (1) JOSE (acute kidney injury) Assessment/Plan: IMPROVED MONITOR Code(s): N17.9 - ACUTE KIDNEY FAILURE, UNSPECIFIED (2) Respiratory failure Assessment/Plan: TRACH REPLACED COMFORTABLE MONITOR SAT Code(s): J96.90 - RESPIRATORY FAILURE, UNSP, UNSP W HYPOXIA OR HYPERCAPNIA Qualifiers: Chronicity: acute on chronic (3) COPD (chronic obstructive pulmonary disease) Assessment/Plan: NEBS Code(s): J44.9 - CHRONIC OBSTRUCTIVE PULMONARY DISEASE, UNSPECIFIED Qualifiers: COPD type: unspecified COPD Qualified Code(s): J44.9 - Chronic obstructive pulmonary disease, unspecified (4) Laryngeal squamous cell carcinoma Assessment/Plan: DR FLORES CONSULT NOTED Code(s): C32.9 - MALIGNANT NEOPLASM OF LARYNX, UNSPECIFIED
--- NOTE | 2017-04-20 15:06 | PN ---
Progress Note, Physician History of Present Illness: Pt seen and examined at bedside. He feels better. He is now in the medical piper. - Current Medication List Current Medications: Active Medications Acetaminophen (Ofirmev Injection -) 1,000 mg IVPB Q6H PRN PRN Reason: FEVER OR PAIN Albuterol/Ipratropium (Duoneb -) 1 amp NEB QIDR [facility] Lorazepam (Ativan Injection -) 2 mg IVPUSH Q4H PRN PRN Reason: AGITATION Last Admin: 04/19/17 21:17 Dose: 2 mg Magnesium Oxide (Mag-Ox -) 400 mg PO BID [facility] Last Admin: 04/20/17 11:33 Dose: 400 mg Ondansetron HCl (Zofran Injection) 4 mg IVPUSH Q6H PRN PRN Reason: NAUSEA AND/OR VOMITING Pantoprazole Sodium (Protonix Iv) 40 mg IVPUSH DAILY [facility] Last Admin: 04/20/17 11:33 Dose: 40 mg Quetiapine Fumarate (Seroquel Xr -) 300 mg PO HS@2000 [facility] Last Admin: 04/19/17 21:13 Dose: 300 mg - Objective Vital Signs: Vital Signs Temperature 98.0 F 04/20/17 10:00 Pulse Rate 80 04/20/17 10:00 Respiratory Rate 20 04/20/17 10:00 Blood Pressure 107/63 04/20/17 10:00 O2 Sat by Pulse Oximetry (%) 98 04/19/17 22:30 Constitutional: Yes: Calm HENT: Yes: Atraumatic Neck: Yes: Other (trache) Cardiovascular: Yes: S1, S2 Respiratory: Yes: Rhonchi Gastrointestinal: Yes: Soft Genitourinary: Yes: Incontinence Musculoskeletal: Yes: Muscle Weakness Edema: No Neurological: Yes: Oriented Labs: CBC, BMP 04/18/17 07:15 04/18/17 07:15 INR, PTT INR 1.11 (0.82-1.09) 04/16/17 08:14 Problem List - Problems (1) Bradycardia Code(s): R00.1 - BRADYCARDIA, UNSPECIFIED (2) Respiratory failure Code(s): J96.90 - RESPIRATORY FAILURE, UNSP, UNSP W HYPOXIA OR HYPERCAPNIA Qualifiers: Chronicity: acute on chronic (3) COPD (chronic obstructive pulmonary disease) Code(s): J44.9 - CHRONIC OBSTRUCTIVE PULMONARY DISEASE, UNSPECIFIED Qualifiers: COPD type: unspecified COPD Qualified Code(s): J44.9 - Chronic obstructive pulmonary disease, unspecified Assessment/Plan Current Medications Generic Name Dose Route Start Last Admin Trade Name Freq PRN Reason Stop Dose Admin Acetaminophen 1,000 mg 04/17/17 19:35 Ofirmev Injection - IVPB Q6H PRN FEVER OR PAIN Albuterol/Ipratropium 1 amp 04/20/17 18:00 Duoneb - NEB QIDR [facility] Lorazepam 2 mg 04/17/17 17:12 04/19/17 21:17 Ativan Injection - IVPUSH 2 mg Q4H PRN Administration AGITATION Magnesium Oxide 400 mg 04/19/17 22:00 04/20/17 11:33 Mag-Ox - PO 400 mg BID [facility] Administration Ondansetron HCl 4 mg 04/17/17 19:35 Zofran Injection IVPUSH Q6H PRN NAUSEA AND/OR VOMITING Pantoprazole Sodium 40 mg 04/18/17 10:00 04/20/17 11:33 Protonix Iv IVPUSH 40 mg DAILY [facility] Administration Quetiapine Fumarate 300 mg 04/17/17 20:00 04/19/17 21:13 Seroquel Xr - PO 300 mg HS@2000 [facility] Administration cardio s1s2 reg pulm trache GI peg ext neg edema neuro responds to commands Impression 1. azotemia 2. hypoxia 3. lung cancer 4. HTN 5. r/o pna Plan - renal function stable - replace mag - will follow PRN - azotemia likely from reprenal disease/nsaids, now resolved - avoid nsaids Dr Lim
[2017-04-20] MEDS ORDERED: INSULIN (NOVOLOG) ASPART 100 UNITS/ML 10ML VIAL ONE (17:32)
[2017-04-20] MEDS: ALBUTEROL SO4 2.5/IPRATROPIUM 0.5 INH SOL 3 ML VIAL.NEB. NEB SCH ×2 (17:45→23:20)
[2017-04-20] MEDS: LORazepam 2 MG/ML SDV VIAL IVPUSH PRN (21:02)
[2017-04-21] MEDS: ALBUTEROL SO4 2.5/IPRATROPIUM 0.5 INH SOL 3 ML VIAL.NEB. NEB SCH ×4 (06:50→23:25)
[2017-04-21] MEDS: PANTOPRAZOLE SODIUM 40 MG VIAL IVPUSH SCH (10:06)
[2017-04-21] MEDS: MAGNESIUM OXIDE 400 MG TABLET (FP) PO SCH ×2 (10:06→21:44)
--- NOTE | 2017-04-21 13:10 | DS ---
Physical Examination Vital Signs: Vital Signs Temperature 98.2 F 04/21/17 06:00 Pulse Rate 76 04/21/17 10:41 Respiratory Rate 18 04/21/17 10:00 Blood Pressure 113/67 04/21/17 10:00 O2 Sat by Pulse Oximetry (%) 95 04/21/17 10:41 Findings/Remarks: EATING SITTING UP NAD Constitutional: Yes: No Distress Eyes: Yes: WNL HENT: Yes: WNL Neck: Yes: WNL Cardiovascular: Yes: WNL Respiratory: Yes: Other (TRACHEOSTOMY COLLAR) Gastrointestinal: Yes: WNL Renal/: Yes: WNL Musculoskeletal: Yes: Muscle Weakness Extremities: Yes: Other Edema: No Peripheral Pulses WNL: Yes Integumentary: Yes: WNL Wound/Incision: Yes: Clean/Dry Neurological: Yes: Pre-Existing Deficit ...Motor Strength: LLE, RLE Psychiatric: Yes: Other Labs: CBC, BMP 04/18/17 07:15 04/18/17 07:15 Discharge Summary Reason For Visit: RESPIRATORY DISTRESS Current Active Problems JOSE (acute kidney injury) (Acute) Acute respiratory failure with hypoxia (Acute) Anxiety (Acute) Bradycardia (Acute) Respiratory failure (Acute) Procedures: Principal: TRACH EXCHANGE Hospital Course: ADMITTED RESP DISTRESS, MALFUNCTIONING TRACHEOSTOMY, IV ABX, 02 SUPPORT Condition: Fair - Instructions Diet, Activity, Other Instructions: LOW SODIUM TRACH CARE DAILY Referrals: Darryl Sherman MD [Primary Care Provider] - Disposition: RESIDENTIAL FACILITY - Home Medications Comprehensive Discharge Medication List: Ambulatory Orders Atorvastatin Ca [Lipitor] 10 mg PO HS 12/23/16 Sertraline HCl [Zoloft] 100 mg PO BID 12/23/16 Allopurinol [Zyloprim -] 100 mg PO DAILY 02/12/17 Aspirin [ASA -] 81 mg PO DAILY 02/12/17 Acetylcysteine Po/INH 20% [Mucomyst 20 Oral / INH Use Only*] 600 mg NEB TIDR #5 vial 04/09/17 Albuterol 0.083% Nebulizer Va [Ventolin 0.083% Nebulizer Soln -] 1 amp NEB Q6H PRN #120 amp 04/09/17 Albuterol Sulfate 0.5% [Ventolin 0.5% Nebulizing Soln. -] 1 amp NEB Q4H PRN # 180 amp 04/09/17 Amlodipine Besylate [Norvasc -] 10 mg PO DAILY #30 tablet 04/09/17 Bacitracin - [Bacitracin Topical Ointment -] 1 applic TP BID #4 tube 04/09/17 Gabapentin [Neurontin -] 400 mg PO TID #90 capsule 04/09/17 Heparin - 5,000 unit SQ TID #1 vial 04/09/17 Ibuprofen [Motrin -] 400 mg PO Q6H PRN #120 tablet 04/09/17 Metoprolol Tartrate [Lopressor -] 25 mg PO BID #60 tablet 04/09/17 Mineral Oil/Petrolat,Wht/Water [Eucerin (Large Jar) -] 1 applic TP DAILY PRN #1 jar 04/09/17 Multivitamins [Multivit ([facility] Formulary)] 1 tab PO DAILY #30 tab 04/09/17 Nicotine Patch [Nicoderm Patch -] 14 mg TD DAILY #30 patch 04/09/17 Nystatin Powder [Nystop Powder -] 1 applic TP BID #1 applic 04/09/17 Ondansetron [Zofran Odt -] 8 mg SL Q8H PRN #90 tab.rapdis 04/09/17 Polyethylene Glycol 3350 [Miralax 119 gm Btl -] 17 gm PO DAILY PRN #4 bottle Quetiapine Fumarate "Xr" [Seroquel XR] 300 mg PO HS@2000 #30 tablet 04/09/17 Sodium Chloride Nasal Bradley [Agricola Bradley Nasal Bradley -] 2 spray NS BID PRN #1 spray 04/09/17 Thiamine HCl [Vitamin B1 -] 100 mg PO DAILY #30 tablet 04/09/17 Zinc Oxide 1 applic TP BID #3 tube 04/09/17 Albuterol 2.5/Ipratropium 0.5 [Duoneb -] 1 amp NEB QIDR amp 04/21/17 Magnesium Oxide [Mag-Ox -] 400 mg PO BID tablet 04/21/17 Quetiapine Fumarate "Xr" [Seroquel XR] 300 mg PO HS@1999 tablet 04/21/17
--- NOTE | 2017-04-21 13:24 | PN ---
Progress Note (short form) - Note Progress Note: NAD on Trach collar. No acute events overnight. Intake & Output 04/18/17 04/19/17 04/20/17 04/21/17 23:59 23:59 23:59 23:59 Intake Total 160 1590 1650 200 Output Total 1100 900 600 200 Balance -451 228 4782 0 Last Vital Signs Temp Pulse Resp BP Pulse Ox 98.2 F 76 18 113/67 95 04/21/17 06:00 04/21/17 10:41 04/21/17 10:00 04/21/17 10:00 04/21/17 10:41 Active Medications Acetaminophen (Ofirmev Injection -) 1,000 mg IVPB Q6H PRN PRN Reason: FEVER OR PAIN Albuterol/Ipratropium (Duoneb -) 1 amp NEB QIDR [facility] Last Admin: 04/21/17 11:14 Dose: 1 amp Lorazepam (Ativan Injection -) 2 mg IVPUSH Q4H PRN PRN Reason: AGITATION Last Admin: 04/20/17 21:02 Dose: 2 mg Magnesium Oxide (Mag-Ox -) 400 mg PO BID [facility] Last Admin: 04/21/17 10:06 Dose: 400 mg Ondansetron HCl (Zofran Injection) 4 mg IVPUSH Q6H PRN PRN Reason: NAUSEA AND/OR VOMITING Pantoprazole Sodium (Protonix Iv) 40 mg IVPUSH DAILY [facility] Last Admin: 04/21/17 10:06 Dose: 40 mg Quetiapine Fumarate (Seroquel Xr -) 300 mg PO HS@2000 [facility] Last Admin: 04/20/17 20:02 Dose: 300 mg GEN: Awake and alert, NAD HEENT: Trach intact PULM: few scattered rhonchi CV: RRR, no mr/r/g appreciated ABD: PEG CDI, +BS EXT: frail, no edema, no rash Neuro: intact IMP: Acute on chronic respiratory failure HPL COPD Lung CA G tube Chronic Tracheostomy PLAN: Trach collar O2 No Pulmonary contraindication for D/C Dr Esquivel
--- NOTE | 2017-04-21 16:37 | CONSULT ---
Admitting History and Physical - Admission History Source: Patient, Medical Record, Caregiver - Past Medical History Cardiovascular: Yes: CAD, HTN, Hyperlipdemia Pulmonary: Yes: COPD, Other (Lung CA) Gastrointestinal: Yes: GI Bleed Heme/Onc: Yes: Cancer ENT: Yes: Other (Laryngeal Ca) - Past Surgical History Additional Past Surgical History: (R)TKR - Smoking History Smoking history: Unknown if ever smoked Have you smoked in the past 12 months: Yes Aproximately how many cigarettes per day: 6 If you are a former smoker, when did you quit?: 6 - Alcohol/Substance Use Hx Alcohol Use: No History - Admission Reason For Visit: RESPIRATORY DISTRESS - Diagnostics X-ray: Report Reviewed - General Mental Status: Alert and Oriented, Awake and Alert, Able to Follow Commands Attention: Intact Ability to Follow Directions: Good Head/Neck Control: Good - Hearing Hearing: Functional Hearing: Normal Hearing Aide: No Speech Evaluation - Communication Primary Language: SOUTH SUDANESE - Swallow Evaluation/Bedside Assessment Current Nutritional Intake: Soft, Thin Liquids, G Tube Oral Secretions: Yes: WFL Tracheostomy Present: Yes Patient on Ventilator: No Dentition: Yes: Adequate Facial Symmetry at Rest: Symmetrical Facial Symmetry on Retraction: Symmetrical Facial Movement: Controlled Sensation: Normal Jaw Position: Closed at Rest Against Resistance Opening: Normal Against Resistance Closing: Normal Pucker Lips: Normal Smile: Normal Lingual Movement: Normal Lingual Speed of Movement: Normal Lingual Movement Strgth Against Opposition: Normal Lingual Movement Characteristics: Normal Soft Palate Description: Normal Color, Normal Arch Hard Palate Description: Normal Color Gag Reflex: Strong Bite Reflex: Absent Rate of Intake: WFL Bolus Size: WFL Labial Seal: WFL Oral Prep Time: WFL A-P Transit: WFL Pocketing: None Timing of Swallow: WFL Coughing/Throat Clear: No Change in Voice: No Recommendations - Dysphagia Impressions/Plan Dysphagia Evaluation Summary: This 56 year old male is able to tolerate thin liquids, nectar thickened liquids and soft solids without signs of aspiration. Recommendations: ENT Consult - Recommendations Diet Consistency: Dysphagia Whole Medication Administration: Crushed with applesauce (Please consider fenestrated trach tube to facilitate voicing RAIL DIRECTOR discussed with Hui Copeland RN, on unit.) Liquids: Thin Liquids
--- NOTE | 2017-04-21 17:45 | CON.PSY ---
Psychiatry Consult Chief Complaint: 56 year old white amle with a history of Psychiatric Problems< alcohol dependence seen for psych consultation. Patient apparantly p[ulled his Tracheostomy tube at the HOme. Staff report that he has been copoerative for the past couole of days. No further incidents rteported. Symptoms: reports: Compulsive Behaviors - Previous Psychiatric Treatment Outpatient: More than 6 mos ago Inpatient: One prior admission - Previous Substance Abuse Treatment Outpatient: More than 6 mos ago - Reason for Previous Treatment Reason for Previous Treatment: Psychotic Episode, Alcohol Abuse - Current Medications Current Medications: Active Medications Acetaminophen (Ofirmev Injection -) 1,000 mg IVPB Q6H PRN PRN Reason: FEVER OR PAIN Albuterol/Ipratropium (Duoneb -) 1 amp NEB QIDR [facility] Last Admin: 04/21/17 11:14 Dose: 1 amp Lorazepam (Ativan Injection -) 2 mg IVPUSH Q4H PRN PRN Reason: AGITATION Last Admin: 04/20/17 21:02 Dose: 2 mg Magnesium Oxide (Mag-Ox -) 400 mg PO BID [facility] Last Admin: 04/21/17 10:06 Dose: 400 mg Ondansetron HCl (Zofran Injection) 4 mg IVPUSH Q6H PRN PRN Reason: NAUSEA AND/OR VOMITING Pantoprazole Sodium (Protonix Iv) 40 mg IVPUSH DAILY [facility] Last Admin: 04/21/17 10:06 Dose: 40 mg Quetiapine Fumarate (Seroquel Xr -) 300 mg PO HS@2000 [facility] Last Admin: 04/20/17 20:02 Dose: 300 mg - Allergies Allergies: Allergies Allergy/AdvReac Type Severity Reaction Status Date / Time No Known Drug Allergies Allergy Verified 04/16/17 12:48 - Current Living Status Usual Living Arrangement: Custodial - Current Mental Status Evaluation Appearance: Well Groomed Attitude: Cooperative - Affect Affect: Constrictive Appropriateness: Appropriate to Content - Mood Mood: Euthymic - Speech/Language Expressive: Coherent - Psychomotor Activity Psychomotor Activity: Normal - Thought Process Thought Process: Intact - Thought Content Hallucinations: Absent Delusions: Absent - Self Perception Self Perception: No Impairment - Cognition Attention: Alert Orientation: Time Memory, Immediate Recall: Intact Memory, Short Term: 2/3 Memory, Remote with Promptin/3 - Concentration Serial Sevens Intact: No Simple Calculations Intact: No - Abstraction Proverb Interpretation: Intact Judgement: Minimally Impaired - Insight Insight: Intact - Impulse Control Impulse Control: Minimally Impaired - Suicidal Ideation Suicidal Ideation: No - Homicidal Ideation Homicidal Ideation: No Assessment/Plan 1) Patient appears to be coopearting with treatment . 2) Continue with serOQUEL. 3) Reiterated with patient the need for his compliance. 4) USE ATIVAN SPARINGLY.
[2017-04-21] MEDS ORDERED: PT OWN MED DRAWER 7, Y5N ONE (21:42)
[2017-04-21] MEDS: LORazepam 2 MG/ML SDV VIAL IVPUSH PRN (21:44)
[2017-04-22] MEDS: ALBUTEROL SO4 2.5/IPRATROPIUM 0.5 INH SOL 3 ML VIAL.NEB. NEB SCH ×3 (06:24→18:13)
[2017-04-22 07:30] LABS: HEMATOCRIT 31.5 % (35.4-49); HEMOGLOBIN 10.4 GM/dL (11.7-16.9); MCH 29.8 pg (25.7-33.7); MCHC 33.1 g/dl (32.0-35.9); MEAN PLT VOLUME 9.6 fl (7.5-11.1); PLATELET COUNT 137 K/MM3 (134-434); RDW 14.3 % (11.9-15.9); WHITE BLOOD COUNT 7.3 K/mm3 (4.0-10.0)
[2017-04-22 07:48] LABS: ANION GAP 9 (8-16); BLOOD UREA NITROGEN 15 mg/dL (7-18); CALCIUM 8.7 mg/dL (8.5-10.1); CHLORIDE 105 mmol/L (98-107); CO2 29 mmol/L (21-32); GLUCOSE,RANDOM 116 mg/dL (74-106); MAGNESIUM 1.7 mg/dL (1.8-2.4); POTASSIUM 3.7 mmol/L (3.5-5.1); SODIUM 143 mmol/L (136-145)
[2017-04-22] MEDS: MAGNESIUM OXIDE 400 MG TABLET (FP) PO SCH (11:01)
[2017-04-22] MEDS: PANTOPRAZOLE SODIUM 40 MG VIAL IVPUSH SCH (11:01)
--- NOTE | 2017-04-22 11:02 | PN ---
Progress Note (short form) - Note Progress Note: PATIENT SEEN AND EXAMINED WILL ORDER 2GM IV MAGNESIUM X 1 PRIOR TO DISCHARGE Problem List - Problems (1) JOSE (acute kidney injury) Code(s): N17.9 - ACUTE KIDNEY FAILURE, UNSPECIFIED (2) Acute respiratory failure with hypoxia Code(s): J96.01 - ACUTE RESPIRATORY FAILURE WITH HYPOXIA (3) Bradycardia Code(s): R00.1 - BRADYCARDIA, UNSPECIFIED (4) Respiratory failure Code(s): J96.90 - RESPIRATORY FAILURE, UNSP, UNSP W HYPOXIA OR HYPERCAPNIA Qualifiers: Chronicity: acute on chronic (5) COPD (chronic obstructive pulmonary disease) Code(s): J44.9 - CHRONIC OBSTRUCTIVE PULMONARY DISEASE, UNSPECIFIED Qualifiers: COPD type: unspecified COPD Qualified Code(s): J44.9 - Chronic obstructive pulmonary disease, unspecified (6) Laryngeal squamous cell carcinoma Code(s): C32.9 - MALIGNANT NEOPLASM OF LARYNX, UNSPECIFIED
[2017-04-22] MEDS: MAGNESIUM 1GM/D5W 100ML - 100 ML IVPB IVPB SCH (12:31)
--- NOTE | 2017-04-22 13:18 | PN ---
Progress Note, Physician History of Present Illness: PULMONARY ALERT,NAD,COMFORTABLE,- RESP DISTRESS - Current Medication List Current Medications: Active Medications Acetaminophen (Ofirmev Injection -) 1,000 mg IVPB Q6H PRN PRN Reason: FEVER OR PAIN Albuterol/Ipratropium (Duoneb -) 1 amp NEB QIDR [facility] Last Admin: 04/22/17 11:38 Dose: 1 amp Lorazepam (Ativan Injection -) 2 mg IVPUSH Q4H PRN PRN Reason: AGITATION Last Admin: 04/21/17 21:44 Dose: 2 mg Magnesium Oxide (Mag-Ox -) 400 mg PO BID [facility] Last Admin: 04/22/17 11:01 Dose: 400 mg Ondansetron HCl (Zofran Injection) 4 mg IVPUSH Q6H PRN PRN Reason: NAUSEA AND/OR VOMITING Pantoprazole Sodium (Protonix Iv) 40 mg IVPUSH DAILY [facility] Last Admin: 04/22/17 11:01 Dose: 40 mg Quetiapine Fumarate (Seroquel Xr -) 300 mg PO HS@2000 [facility] Last Admin: 04/21/17 21:44 Dose: 300 mg - Objective Vital Signs: Vital Signs Temperature 98.4 F 04/22/17 06:00 Pulse Rate 71 04/22/17 09:55 Respiratory Rate 18 04/22/17 06:00 Blood Pressure 132/78 04/22/17 06:00 O2 Sat by Pulse Oximetry (%) 99 04/22/17 09:55 Constitutional: Yes: Well Nourished, Calm Eyes: Yes: WNL HENT: Yes: WNL Neck: Yes: Supple (TRACH) Cardiovascular: Yes: Regular Rate and Rhythm, S1, S2 Respiratory: Yes: Rhonchi (SCATTERED SRIDHAR RHONCHI) Gastrointestinal: Yes: Normal Bowel Sounds, Soft Extremities: Yes: WNL Edema: No Labs: CBC, BMP 04/22/17 07:00 04/22/17 07:00 INR, PTT INR 1.11 (0.82-1.09) 04/16/17 08:14 Problem List - Problems (1) Acute and chronic respiratory failure Code(s): J96.20 - ACUTE AND CHR RESP FAILURE, UNSP W HYPOXIA OR HYPERCAPNIA (2) Respiratory failure Code(s): J96.90 - RESPIRATORY FAILURE, UNSP, UNSP W HYPOXIA OR HYPERCAPNIA Qualifiers: Chronicity: acute on chronic (3) COPD (chronic obstructive pulmonary disease) Code(s): J44.9 - CHRONIC OBSTRUCTIVE PULMONARY DISEASE, UNSPECIFIED Qualifiers: COPD type: unspecified COPD Qualified Code(s): J44.9 - Chronic obstructive pulmonary disease, unspecified (4) Laryngeal squamous cell carcinoma Code(s): C32.9 - MALIGNANT NEOPLASM OF LARYNX, UNSPECIFIED (5) Lung cancer Code(s): C34.90 - MALIGNANT NEOPLASM OF UNSP PART OF UNSP BRONCHUS OR LUNG Qualifiers: Laterality: unspecified laterality Lung location: overlapping sites Qualified Code(s): C34.80 - Malignant neoplasm of overlapping sites of unspecified bronchus and lung Assessment/Plan MP: Acute on chronic respiratory failure HPL COPD Lung CA G tube Chronic Tracheostomy PLAN: Trach collar O2 No Pulmonary contraindication for D/C Inhaled bronchodilators DR OTTO
[2017-04-22 15:16] VITALS: BP 123/79; PULSE 88; TEMP 98.8
== END 2017-04-22 18:36 | DRG 130 ==
LOC: JER 07:12 → JERBED 09:37 → JICU 12:01 → J5S 04-17 22:03
PROVIDERS: ADMIT Family Medicine; ATTEND Family Medicine
PROC: 5A1955Z Respiratory Ventilation, Greater than 96 Consecutive Hours (ICD-10-PCS; principal; 2017-04-16)
PROC: 0BH17EZ Insertion of Endotracheal Airway into Trachea, Via Natural or Artificial Opening (ICD-10-PCS; 2017-04-16)
PROC: 0B21XFZ Change Tracheostomy Device in Trachea, External Approach (ICD-10-PCS; 2017-04-16)
PROC: 0B21XFZ Change Tracheostomy Device in Trachea, External Approach (ICD-10-PCS; 2017-04-18)
DX: J96.21 Acute and chronic respiratory failure with hypoxia (principal); J95.09 Other tracheostomy complication; J96.02 Acute respiratory failure with hypercapnia; N17.9 Acute kidney failure, unspecified; C72.59 Malignant neoplasm of other cranial nerves; Z78.1 Physical restraint status; Z90.2 Acquired absence of lung [part of]; Z93.1 Gastrostomy status; Y83.8 Other surgical procedures as the cause of abnormal reaction of the patient, or of later complication, without mention of misadventure at the time of the procedure; Y82.8 Other medical devices associated with adverse incidents; R06.03 Acute respiratory distress; I10 Essential (primary) hypertension; J44.9 Chronic obstructive pulmonary disease, unspecified; Z93.0 Tracheostomy status; R23.0 Cyanosis; R00.1 Bradycardia, unspecified; Z99.11 Dependence on respirator [ventilator] status; Z87.891 Personal history of nicotine dependence; Z96.641 Presence of right artificial hip joint; M10.9 Gout, unspecified; Z85.118 Personal history of other malignant neoplasm of bronchus and lung
CPT/HCPCS: 36415; 71010-TC; 76775-TC; 76856-TC; 80048; 80053; 81003; 81015; 82436; 82550; 82570; 82803; 83605; 83690; 83735; 84100; 84133; 84300; 84484; 85025; 85027; 85610; 85730; 86850; 86900; 86901; 87040; 87070; 87086; 87205; 93005; 93010; 94002; 94640; 97116-GP; 97161-GP; 99285-25

== ENCOUNTER 2017-07-22 16:26 | Inpatient (IN) | payer OTHER ==
--- NOTE | 2017-07-22 16:46 | PDOC ---
History of Present Illness <Cierra Madrigal - Last Filed: 07/22/17 19:13> - History of Present Illness Initial Comments: 07/22/17 19:54 The patient is a 57 year old male with history of laryngeal CA s/p trach sent from his NH for dyspnea noted today. The patient had his tube changed from a fenestrated trach 8 to a unfenestrated 7. He had his tube suctioned prior to arrival, but the patient denies any apparent improvement. No chest pain or shortness of breath. No fever or chills. No peripheral edema. No nausea, vomiting, or diaphoresis. The patient is nonverbal secondary to trach. Patient is status DNR/DNI. CT Surgeon: Dr. Gilmore Fuel Cell Engineer: Dr. Manjarrez <Natalia Tsang - Last Filed: 07/22/17 19:54> - General History Source: Patient Exam Limitations: No Limitations <Romy Fuller - Last Filed: 07/22/17 20:31> - General Chief Complaint: Shortness of Breath Stated Complaint: DIFFICULTY BREATHING Time Seen by Provider: 07/22/17 16:30 Past History - Past Medical History Cancer: Yes (malignant neoplasem of bronchus and lung) Cardiac Disorders: Yes (CAD) COPD: Yes (thrach) GI Disorders: Yes (h/o GI Bleed) Disorders: No HTN: Yes Hypercholesterolemia: Yes Liver Disease: No Psychiatric Problems: Yes (DEPRESSION, ANXIETY) Thyroid Disease: No - Surgical History Cardiac Surgery: Yes (cardiac stents ~ 2015) Orthopedic Surgery: Yes (RIGHT HIP REPLACEMENT) - Suicide/Smoking/Psychosocial Hx Smoking History: Unknown if ever smoked Have you smoked in the past 12 months: No Number of Cigarettes Smoked Daily: 6 If you are a former smoker, when did you quit?: 6 Information on smoking cessation initiated: No 'Breaking Loose' booklet given: 02/11/17 Hx Alcohol Use: No Drug/Substance Use Hx: No Substance Use Type: None Hx Substance Use Treatment: Yes <Cierra Madrigal - Last Filed: 07/22/17 19:13> <Natalia Tsang - Last Filed: 07/22/17 19:54> <Romy Fuller - Last Filed: 07/22/17 20:31> - Past Medical History Allergies/Adverse Reactions: Allergies Allergy/AdvReac Type Severity Reaction Status Date / Time No Known Drug Allergies Allergy Verified 07/22/17 16:45 Home Medications: Ambulatory Orders Sertraline HCl [Zoloft] 150 mg PO DAILY 12/23/16 Allopurinol [Zyloprim -] 100 mg PO DAILY 02/12/17 Aspirin [ASA -] 81 mg PO DAILY 02/12/17 Bacitracin - [Bacitracin Topical Ointment -] 1 applic TP BID #4 tube 04/09/17 Gabapentin [Neurontin -] 400 mg PO TID #90 capsule 04/09/17 Metoprolol Tartrate [Lopressor -] 25 mg PO BID #60 tablet 04/09/17 Nystatin Powder [Nystop Powder -] 1 applic TP BID #1 applic 04/09/17 Albuterol 2.5/Ipratropium 0.5 [Duoneb -] 1 amp NEB Q6H 07/22/17 Allopurinol [Zyloprim -] 100 mg PO DAILY 07/22/17 Amitriptyline HCl 75 mg PO HS 07/22/17 Amlodipine Besylate [Norvasc -] 5 mg PO DAILY 07/22/17 Quetiapine Fumarate "Xr" [Seroquel XR] 200 mg PO HS@199907/22/17 Review of Systems - Review of Systems Able to Perform ROS?: Yes Comments:: 07/22/17 17:29 GENERAL/CONSTITUTIONAL: No fever or chills. No weakness. HEAD, EYES, EARS, NOSE AND THROAT: No change in vision. No ear pain or discharge. No sore throat. CARDIOVASCULAR: No chest pain or shortness of breath. RESPIRATORY: (+)difficulty breathing. No cough, wheezing, or hemoptysis. GASTROINTESTINAL: No nausea, vomiting, diarrhea or constipation. GENITOURINARY: No dysuria, frequency, or change in urination. MUSCULOSKELETAL: No joint or muscle swelling or pain. No neck or back pain. SKIN: No rash NEUROLOGIC: No headache, vertigo, loss of consciousness, or change in strength/ sensation. ENDOCRINE: No increased thirst. No abnormal weight change. HEMATOLOGIC/LYMPHATIC: No anemia, easy bleeding, or history of blood clots. ALLERGIC/IMMUNOLOGIC: No hives or skin allergy. <Romy Fuller - Last Filed: 07/22/17 20:31> *Physical Exam - Vital Signs Last Vital Signs Temp Pulse Resp BP Pulse Ox 98.6 F 71 14 107/78 97 07/22/17 16:26 07/22/17 16:26 07/22/17 16:26 07/22/17 16:26 07/22/17 16:26 <Cierra Madrigal - Last Filed: 07/22/17 19:13> - Vital Signs Last Vital Signs Temp Pulse Resp BP Pulse Ox 98.6 F 71 14 107/78 97 07/22/17 16:26 07/22/17 16:26 07/22/17 16:26 07/22/17 16:26 07/22/17 16:26 <Natalia Tsang - Last Filed: 07/22/17 19:54> - Vital Signs Last Vital Signs Temp Pulse Resp BP Pulse Ox 98.6 F 71 14 107/78 97 07/22/17 16:26 07/22/17 16:26 07/22/17 16:26 07/22/17 16:26 07/22/17 16:26 - Physical Exam Comments: 07/22/17 20:18 GENERAL: Awake, alert, and fully oriented, in no acute distress HEAD: No signs of trauma EYES: PERRLA, EOMI, sclera anicteric, conjunctiva clear ENT: Auricles normal inspection, hearing grossly normal, nares patent, oropharynx clear without exudates. Moist mucosa NECK: (+) Trach tube in place. . No drainage around trach site. No surrounding erythema or warmth. Normal ROM, supple, no lymphadenopathy, JVD, or masses. LUNGS: Breath sounds equal, clear to auscultation bilaterally. No wheezes, and no crackles HEART: Regular rate and rhythm, normal S1 and S2, no murmurs, rubs or gallops ABDOMEN: (+) Peg in left upper quadrant of abdomen. Belly Soft, nontender, normoactive bowel sounds. No guarding, no rebound. No masses EXTREMITIES: Normal range of motion, no edema. No clubbing or cyanosis. No cords, erythema, or tenderness NEUROLOGICAL: Cranial nerves II through XII grossly intact , Non verbal secondary to trach. Gait deferred. <Romy Fuller - Last Filed: 07/22/17 20:31> ED Treatment Course - LABORATORY CBC & Chemistry Diagram: 07/22/17 16:50 07/22/17 16:50 <Cierra Madrigal - Last Filed: 07/22/17 19:13> - LABORATORY CBC & Chemistry Diagram: 07/22/17 16:50 07/22/17 16:50 - ADDITIONAL ORDERS Additional order review: Laboratory Results 07/22/17 07/22/17 07/22/17 17:00 16:53 16:50 PT with INR 11.40 INR 1.01 PTT (Actin FS) 33.2 Anticoagulation Therapy No Result Required. Puncture Site Left brachial ABG pH 7.56 H D ABG pCO2 at Pt Temp 24.8 L D ABG pO2 at Pt Temp 80.6 D ABG HCO3 22.6 ABG O2 Sat (Measured) 96.8 ABG O2 Content 24.0 H ABG Base Excess 1.9 Angel Test Positive Methemoglobin 1.5 O2 Delivery Device No Result Required. Oxygen Flow Rate Ventim ask Vent Mode No Result Required. Vent Rate No Result Required. Mechanical Rate No Result Required. Pressure Support Vent No Result Required. Sodium 138 Potassium 3.8 Chloride 102 Carbon Dioxide 27 Anion Gap 9 BUN 17 Creatinine 1.3 D Creat Clearance w eGFR 56.70 Random Glucose 88 D Calcium 8.8 Total Bilirubin 0.2 D AST 11 L D ALT 13 D Alkaline Phosphatase 72 D Creatine Kinase 49 Troponin I < 0.02 Total Protein 7.6 Albumin 3.5 07/22/17 16:50 RBC 4.39 D MCV 84.3 MCHC 34.2 RDW 14.7 MPV 8.8 Neutrophils % 45.5 D Lymphocytes % 40.4 H D Monocytes % 6.8 Eosinophils % 6.4 H Basophils % 0.9 - Medications Given in the ED: ED Medications Discontinued Medications Generic Name Dose Route Start Last Admin Trade Name Freq PRN Reason Stop Dose Admin Albuterol/Ipratropium 1 amp 07/22/17 16:47 07/22/17 17:02 Duoneb - NEB 07/22/17 16:48 1 amp ONCE ONE Administration <Natalia Tsang - Last Filed: 07/22/17 19:54> - LABORATORY CBC & Chemistry Diagram: 07/22/17 16:50 07/22/17 16:50 - ADDITIONAL ORDERS Additional order review: Laboratory Results 07/22/17 17:00 Anticoagulation Therapy No Result Required. Puncture Site Left brachial ABG pH 7.56 H D ABG pCO2 at Pt Temp 24.8 L D ABG pO2 at Pt Temp 80.6 D ABG HCO3 22.6 ABG O2 Sat (Measured) 96.8 ABG O2 Content 24.0 H ABG Base Excess 1.9 Angel Test Positive Methemoglobin 1.5 O2 Delivery Device No Result Required. Oxygen Flow Rate Ventim ask Vent Mode No Result Required. Vent Rate No Result Required. Mechanical Rate No Result Required. Pressure Support Vent No Result Required. 07/22/17 16:50 RBC 4.39 D MCV 84.3 MCHC 34.2 RDW 14.7 MPV 8.8 Neutrophils % 45.5 D Lymphocytes % 40.4 H D Monocytes % 6.8 Eosinophils % 6.4 H Basophils % 0.9 - Medications Given in the ED: ED Medications Discontinued Medications Generic Name Dose Route Start Last Admin Trade Name Freq PRN Reason Stop Dose Admin Albuterol/Ipratropium 1 amp 07/22/17 16:47 07/22/17 17:02 Duoneb - NEB 07/22/17 16:48 1 amp ONCE ONE Administration <Romy Fuller - Last Filed: 07/22/17 20:31> Medical Decision Making - Medical Decision Making 07/22/17 17:42 a/p: sinus at 68, nl axis, nl interval, no acute st/t wave findings, q waves inferiorly that are age indeterminate 07/22/17 19:13 a/p: 57yo male DNR/DNI from [facility] with difficulty breathing - had trach changed at the facility - suctioned at facility and "tissue" came up - no bleeding -pt with episodic resp distress -suctioning with blood tinged mucous around catheter but no active bleeding -will check labs, ekg, cxr -will discuss with Dr. Manjarrez -will monitor and reassess -will give neb tx 07/22/17 19:17 pt cxr clear on my interpretation -no sputum from around or from trach bedside ultrasound no B lines or consolidation seen will place in obs for further monitoring of dyspnea 07/22/17 19:[address] Walsh (covering tonight for Dr. Byrd) who accepts pt to service <Cierra Madrigal - Last Filed: 07/22/17 19:13> - Medical Decision Making 07/22/17 19:23 Placed call to patient's jacket changer, Dr. Manjarrez, at [phone]. Case discussed with covering physician, Dr. Esquivel, who agrees with plan and will see patient tomorrow. <Natalia Tsang - Last Filed: 07/22/17 19:54> *DC/Admit/Observation/Transfer - Discharge Dispostion Admit: Yes - Attestations Physician Attestion: 07/22/17 19:18 I, Dr. Cierra Madrigal DO, attest that this document has been prepared under my direction and personally reviewed by me in its entirety. I further attest, that it accurately reflects all work, treatment, procedures and medical decision -making performed by me. <Cierra Madrigal - Last Filed: 07/22/17 19:13> - Attestations Scribe Attestion: 07/22/17 19:58 Documentation prepared by Natalia Tsang, acting as medical director for Cierra Madrigal DO. <Natalia Tsang - Last Filed: 07/22/17 19:54> - Attestations Scribe Attestion: 07/22/17 17:29 Documentation prepared by Romy Fuller, acting as medical director for Cierra Madrigal DO. <Romy Fuller - Last Filed: 07/22/17 20:31> Diagnosis at time of Disposition: Dyspnea - Discharge Dispostion Condition at time of disposition: Fair
[2017-07-22] MEDS ORDERED: ALBUTEROL SO4 2.5/IPRATROPIUM 0.5 INH SOL 3 ML VIAL.NEB. NEB ONE ×2 (16:47→19:33)
[2017-07-22 17:13] LABS: BASO % 0.9 % (0-2.0); EOS % 6.4 % (0-4.5); HEMOGLOBIN 12.6 GM/dL (11.7-16.9); LYMPH % 40.4 % (8-40); MCH 28.8 pg (25.7-33.7); MCHC 34.2 g/dl (32.0-35.9); MEAN CELL VOLUME 84.3 fl (80-96); MEAN PLT VOLUME 8.8 fl (7.5-11.1); MONO % 6.8 % (3.8-10.2); NEUT % 45.5 % (42.8-82.8); PLATELET COUNT 223 K/MM3 (134-434); RBC 4.39 M/mm3 (4.00-5.60); RDW 14.7 % (11.9-15.9)
[2017-07-22 17:21] LABS: ARTERIAL BLOOD GAS PCO2 24.8 mmHg (35-45); ARTERIAL BLOOD GAS PO2 80.6 mmHg (80-100); ARTERIAL BLOOD GAS pH 7.56 (7.35-7.45)
[2017-07-22 17:22] LABS: ARTERIAL BLD GAS O2 SATURATION 96.8 % (90-98.9); ARTERIAL BLOOD GAS BASE EXCESS 1.9 meq/l (-2-2)
[2017-07-22 17:23] LABS: ALLENS TEST POSITIVE
[2017-07-22 17:27] LABS: INR 1.01 (0.82-1.09); PROTHROMBIN TIME (PATIENT) 11.4 SEC (9.98-11.88)
[2017-07-22 17:29] LABS: ACTIVATED PTT 33.2 SECONDS (26.9-34.4)
[2017-07-22 17:43] LABS: ALBUMIN 3.5 g/dl (3.4-5.0); ALK PHOS 72 U/L (45-117); ANION GAP 9 (8-16); BILIRUBIN,TOTAL 0.2 mg/dL (0.2-1.0); BLOOD UREA NITROGEN 17 mg/dL (7-18); CALCIUM 8.8 mg/dL (8.5-10.1); CHLORIDE 102 mmol/L (98-107); CO2 27 mmol/L (21-32); CREATININE 1.3 mg/dL (0.7-1.3); GLUCOSE,RANDOM 88 mg/dL (74-106); POTASSIUM 3.8 mmol/L (3.5-5.1); SGOT/AST 11 U/L (15-37); SGPT/ALT 13 U/L (12-78); SODIUM 138 mmol/L (136-145); TOT PROT 7.6 g/dl (6.4-8.2)
[2017-07-22] MEDS ORDERED: ALBUTEROL SO4 2.5/IPRATROPIUM 0.5 INH SOL 3 ML VIAL.NEB. NEB SCH (20:00)
--- NOTE | 2017-07-22 20:25 | HP ---
<Mallory Ma - Last Filed: 07/22/17 22:10> CHIEF COMPLAINT: SOB x 1 day PCP: [facility] HISTORY OF PRESENT ILLNESS: 57 y/o M with PMH malignant neoplasm bronchus and lung, CAD s/p two stents (~ 2014), HTN, HLD, depression, anxiety, hx G tube, trach tube, who was BIBEMS from [facility] for difficulty breathing over the past day. As per staff, pt began to have trouble breathing at rest, so he was suctioned at the facility and had his fenestrated trach changed from a size 8 to 7. En route, pt also was suctioned by EMS without much improvement. While in the ED, he had frothy secretions noted around his catheter site and received a neb tx. He was not found to be hypoxic, as he was sat 97. During this time, pt also endorses generalized diffuse RAPHAEL. Otherwise denies fever, chills, chest pain, or changes in urinary or bowel function. Pt states that he is fed orally, not through his G tube. ER course was notable for: (1) Duonebs x 2 (2) (3) Recent Travel: none PAST MEDICAL HISTORY: as above PAST SURGICAL HISTORY: cardiac stents- 2014, R hip replacement Social History: stays at [facility], however today believes that he was coming from home Smoking: pt active smoker in past; amount unknown Alcohol: denies Drugs: denies Family History: denies Allergies No Known Drug Allergies Allergy (Verified 07/22/17 16:45) HOME MEDICATIONS: Home Medications Medication Instructions Recorded Sertraline HCl [Zoloft] 150 mg PO DAILY 12/23/16 Allopurinol [Zyloprim -] 100 mg PO DAILY 02/12/17 Aspirin [ASA -] 81 mg PO DAILY 02/12/17 Bacitracin - [Bacitracin Topical 1 applic TP BID #4 tube 04/09/17 Ointment -] Gabapentin [Neurontin -] 400 mg PO TID #90 capsule 04/09/17 Metoprolol Tartrate [Lopressor -] 25 mg PO BID #60 tablet 04/09/17 Nystatin Powder [Nystop Powder -] 1 applic TP BID #1 applic 04/09/17 Albuterol 2.5/Ipratropium 0.5 1 amp NEB Q6H 07/22/17 [Duoneb -] Allopurinol [Zyloprim -] 100 mg PO DAILY 07/22/17 Amitriptyline HCl 75 mg PO HS 07/22/17 Amlodipine Besylate [Norvasc -] 5 mg PO DAILY 07/22/17 Quetiapine Fumarate "Xr" [Seroquel 200 mg PO HS@199907/22/17 XR] REVIEW OF SYSTEMS CONSTITUTIONAL: Absent: fever, chills, diaphoresis, generalized weakness, malaise, loss of appetite, weight change HEENT: Absent: rhinorrhea, nasal congestion, throat pain, throat swelling, difficulty swallowing, mouth swelling, ear pain, eye pain, visual changes CARDIOVASCULAR: Absent: chest pain, syncope, palpitations, irregular heart rate, lightheadedness , peripheral edema RESPIRATORY: +SOB Absent: cough, dyspnea with exertion, orthopnea, wheezing, stridor, hemoptysis GASTROINTESTINAL: Absent: abdominal pain, abdominal distension, nausea, vomiting, diarrhea, constipation, melena, hematochezia GENITOURINARY: Absent: dysuria, frequency, urgency, hesitancy, hematuria, flank pain, genital pain MUSCULOSKELETAL: Absent: myalgia, arthralgia, joint swelling, back pain, neck pain SKIN: Absent: rash, itching, pallor HEMATOLOGIC/IMMUNOLOGIC: Absent: easy bleeding, easy bruising, lymphadenopathy, frequent infections ENDOCRINE: Absent: unexplained weight gain, unexplained weight loss, heat intolerance, cold intolerance NEUROLOGIC: +headache Absent: focal weakness or paresthesias, dizziness, unsteady gait, seizure, mental status changes, bladder or bowel incontinence PSYCHIATRIC: Absent: anxiety, depression, suicidal or homicidal ideation, hallucinations. PHYSICAL EXAMINATION Vital Signs 07/22/17 16:26 Temperature 98.6 F Pulse Rate 71 Respiratory 14 Rate Blood Pressure 107/78 O2 Sat by Pulse 97 Oximetry (%) GENERAL: Intermittent coughing. Awake, alert, and fully oriented, in no acute distress HEAD: Normal with no signs of trauma. EYES: Pupils equal, round and reactive to light, extraocular movements intact, sclera anicteric, conjunctiva clear. EARS, NOSE, THROAT: Ears normal, nares patent, oropharynx clear without exudates. Moist mucous membranes. NECK: Normal range of motion, +trach intact. Without secretions LUNGS: Scattered rhonchi b/l. Without wheezing, or accessory m usage HEART: Regular rate and rhythm, normal S1 and S2 without murmur, rub or gallop. ABDOMEN: Soft, nontender, not distended, normoactive bowel sounds, no guarding, no rebound, no masses. +G tube intact UPPER EXTREMITIES: 2+ radial pulses, warm, well-perfused. No peripheral edema. LOWER EXTREMITIES: 2+ posterior tibial pulses, warm, well-perfused. No calf tenderness. No peripheral edema. NEUROLOGICAL: Cranial nerves II-XII intact. PSYCHIATRIC: Cooperative. Laboratory Results 07/22/17 07/22/17 07/22/17 16:50 16:50 16:53 WBC 8.0 RBC 4.39 D Hgb 12.6 D Hct 37.0 D MCV 84.3 MCH 28.8 MCHC 34.2 RDW 14.7 Plt Count 223 D MPV 8.8 Neutrophils % 45.5 D Lymphocytes % 40.4 H D Monocytes % 6.8 Eosinophils % 6.4 H Basophils % 0.9 PT with INR 11.40 INR 1.01 PTT (Actin FS) 33.2 Anticoagulation Therapy Sodium 138 Potassium 3.8 Chloride 102 Carbon Dioxide 27 Anion Gap 9 BUN 17 Creatinine 1.3 D Creat Clearance w eGFR 56.70 Random Glucose 88 D Calcium 8.8 Total Bilirubin 0.2 D AST 11 L D ALT 13 D Alkaline Phosphatase 72 D Creatine Kinase 49 Troponin I < 0.02 Total Protein 7.6 Albumin 3.5 TESTS EKG: NSR, vent rate 69bpm, NV 164ms, QRS 82ms, QTC 445ms CXR: without infiltrates or pleural effusion. official report pending ASSESSMENT/PLAN: 57 y/o M with PMH malignant neoplasm bronchus and lung, CAD s/p two stents (~ 2014), HTN, HLD, depression, anxiety, hx G tube, trach tube, who was BIBEMS from [facility] for difficulty breathing over the past day. Pt admitted to tele- observation for SOB 2/2 acute on chronic respiratory failure 2/2 thick mucous secretions. #SOB 2/2 acute on chronic respiratory failure 2/2 thick mucous secretions -Trach in place, was changed at [facility] from Fenestrated 8 to 7 -Pt without hypoxia at this time -Continue Mucomyst 400 mg RQID -Duonebs JUNIOR q6h -Nebs q4h PRN -Chest physiotherapy -Telemetry monitoring -Pulm consult- Dr. Manjarrez; has been seen by in past #F/E/N -no need for IVF at this time -serial lytes -clear liquid diet - advance if ok in AM. Prevent aspiration #PPX DVT: SCD's #Dispo -Tele observation Hospitalist Screening - Colonoscopy Questionnaire Colonoscopy Questionnaire: Colonoscopy Questionnaire <Mtaa Callahan - Last Filed: 07/23/17 02:33> CHIEF COMPLAINT: worsening SOB HISTORY OF PRESENT ILLNESS: 57 year old male with history of lung ca s/p tracheostomy that presents from [facility] Recent Travel: PAST MEDICAL HISTORY: Lung Ca Tracheostomy PHYSICAL EXAMINATION Vital Signs - 24 hr 07/22/17 07/22/17 16:26 19:52 Temperature 98.6 F Pulse Rate 71 Respiratory 14 Rate Blood Pressure 107/78 O2 Sat by Pulse 97 100 Oximetry (%) GENERAL: Awake, alert, and fully oriented, in no acute distress. HEAD: Normal with no signs of trauma. Tracheostomy in plaCE sCATTERED UPPER RESP RONCHI pEG TUBE IN PLACE aBDOMEN IS NON TENDER Laboratory Results - last 24 hr 07/22/17 07/22/17 07/22/17 16:50 16:50 16:53 WBC 8.0 RBC 4.39 D Hgb 12.6 D Hct 37.0 D MCV 84.3 MCH 28.8 MCHC 34.2 RDW 14.7 Plt Count 223 D MPV 8.8 Neutrophils % 45.5 D Lymphocytes % 40.4 H D Monocytes % 6.8 Eosinophils % 6.4 H Basophils % 0.9 PT with INR 11.40 INR 1.01 PTT (Actin FS) 33.2 Anticoagulation Therapy Puncture Site ABG pH ABG pCO2 at Pt Temp ABG pO2 at Pt Temp ABG HCO3 ABG O2 Sat (Measured) ABG O2 Content ABG Base Excess Angel Test Methemoglobin O2 Delivery Device Oxygen Flow Rate Vent Mode Vent Rate Mechanical Rate Pressure Support Vent Sodium 138 Potassium 3.8 Chloride 102 Carbon Dioxide 27 Anion Gap 9 BUN 17 Creatinine 1.3 D Creat Clearance w eGFR 56.70 Random Glucose 88 D Calcium 8.8 Total Bilirubin 0.2 D AST 11 L D ALT 13 D Alkaline Phosphatase 72 D Creatine Kinase 49 Troponin I < 0.02 Total Protein 7.6 Albumin 3.5 07/22/17 17:00 WBC RBC Hgb Hct MCV MCH MCHC RDW Plt Count MPV Neutrophils % Lymphocytes % Monocytes % Eosinophils % Basophils % PT with INR INR PTT (Actin FS) Anticoagulation Therapy No Result Required. Puncture Site Left brachial ABG pH 7.56 H D ABG pCO2 at Pt Temp 24.8 L D ABG pO2 at Pt Temp 80.6 D ABG HCO3 22.6 ABG O2 Sat (Measured) 96.8 ABG O2 Content 24.0 H ABG Base Excess 1.9 Angel Test Positive Methemoglobin 1.5 O2 Delivery Device No Result Required. Oxygen Flow Rate Ventim ask Vent Mode No Result Required. Vent Rate No Result Required. Mechanical Rate No Result Required. Pressure Support Vent No Result Required. Sodium Potassium Chloride Carbon Dioxide Anion Gap BUN Creatinine Creat Clearance w eGFR Random Glucose Calcium Total Bilirubin AST ALT Alkaline Phosphatase Creatine Kinase Troponin I Total Protein Albumin ASSESSMENT/PLAN: 57 YEAR OLD WITH ACUTE ON CHRONIC RESPIRATORY FAILURE LIKELY SECONDARY TO THICK MUCOUS SECRETIONS AND INABILITY TO EXPECTORATE - NEBS - PULMONAry toilet - pulmonary evaluation - mucomyst Visit type - Emergency Visit Emergency Visit: Yes ED Registration Date: 07/22/17 Care time: The patient presented to the Emergency Department on the above date and was hospitalized for further evaluation of their emergent condition. - New Patient This patient is new to me today: Yes Date on this admission: 07/23/17 - Critical Care Critical Care patient: No Hospitalist Screening - Colonoscopy Questionnaire Colonoscopy Questionnaire: Colonoscopy Questionnaire - Patient: 50 - 75 years old and never had a screening colonoscopy: Unknown History of colon or rectal polyps, or CA: Unknown History of IBD, Crohn's disease or UC: Unknown History of abdominal radiation therapy as a child: Unknown - Relative: 1 with colon or rectal CA, or polyps at age 60 or younger: Unknown Colon or rectal CA diagnosed at age 45 or younger: Unknown Multiple relatives with colon or rectal CA: Unknown - Outcome: Screening Result: Negative Screen
[2017-07-22] MEDS ORDERED: ALBUTEROL SO4 2.5/IPRATROPIUM 0.5 INH SOL 3 ML VIAL.NEB. NEB PRN (20:47)
[2017-07-22] MEDS ORDERED: guaiFENesin 600 MG TABLET.ER (FP) PO SCH (22:00)
[2017-07-22] MEDS: BACITRACIN 15 GM TUBE TOPICAL OINTMENT TP SCH (23:20)
[2017-07-22] MEDS: METOPROLOL TARTRATE 25 MG TABLET (FP) PO SCH (23:21)
[2017-07-22] MEDS: AMITRIPTYLINE HCL 75 MG TABLET PO SCH (23:21)
[2017-07-22] MEDS: NYSTATIN POWDER 100,000 UNITS/GM - 15 GM TOPICAL POWDER TP SCH (23:22)
[2017-07-22] MEDS: GABAPENTIN 400 MG CAPSULE (FP) PO SCH (23:22)
[2017-07-22] MEDS ORDERED: PT OWN MED DRAWER 7, Y5N ONE (23:29)
[2017-07-22 23:41] VITALS: BMI 26.0
[2017-07-23] MEDS: GABAPENTIN 400 MG CAPSULE (FP) PO SCH ×3 (06:31→21:21)
--- NOTE | 2017-07-23 07:55 | PN ---
Progress Note, Physician - Current Medication List Current Medications: Active Medications Acetylcysteine (Mucomyst 20 Oral / Inh Use Only*) 400 mg PO RQID [facility] Albuterol/Ipratropium (Duoneb -) 1 amp NEB Q4H PRN PRN Reason: SHORTNESS OF BREATH Albuterol/Ipratropium (Duoneb -) 1 amp NEB RQID [facility] Allopurinol (Zyloprim -) 100 mg PO DAILY [facility] Amitriptyline HCl (Elavil -) 75 mg PO [facility] Last Admin: 07/22/17 23:21 Dose: 75 mg Amlodipine Besylate (Norvasc -) 5 mg PO DAILY [facility] Aspirin (Asa -) 81 mg PO DAILY [facility] Bacitracin (Bacitracin -) 1 applic TP BID [facility] Last Admin: 07/22/17 23:20 Dose: 1 applic Gabapentin (Neurontin -) 400 mg PO TID [facility] Last Admin: 07/23/17 06:31 Dose: 400 mg Metoprolol Tartrate (Lopressor -) 25 mg PO BID [facility] Last Admin: 07/22/17 23:21 Dose: 25 mg Non-Formulary Medication (Sertraline Hcl [Zoloft]) 150 mg PO DAILY [facility] Nystatin (Nystop Powder -) 1 applic TP BID [facility] Last Admin: 07/22/17 23:22 Dose: Not Given Quetiapine Fumarate (Seroquel Xr -) 200 mg PO HS@1999 [facility] Last Admin: 07/22/17 23:22 Dose: 200 mg - Objective Vital Signs: Vital Signs Temperature 98.0 F 07/23/17 06:00 Pulse Rate 65 07/23/17 06:00 Respiratory Rate 18 07/23/17 06:00 Blood Pressure 114/77 07/23/17 06:00 O2 Sat by Pulse Oximetry (%) 95 07/23/17 06:32 Cardiovascular: Yes: S1, S2 Respiratory: Yes: Rhonchi, Wheezes, Other (TRACH) Gastrointestinal: Yes: Normal Bowel Sounds, Soft Edema: No Labs: CBC, BMP 07/22/17 16:50 07/22/17 16:50 INR, PTT INR 1.01 (0.82-1.09) 07/22/17 16:53 Problem List - Problems (1) Acute and chronic respiratory failure Assessment/Plan: -Trach in place, was changed at [place] from Fen[place] 8 to 7 -Pt without hypoxia at this time -Continue Mucomyst 400 mg RQID -Duonebs [facility] q6h -Nebs q4h PRN -Chest physiotherapy -Pulm consult- Code(s): J96.20 - ACUTE AND CHR RESP FAILURE, UNSP W HYPOXIA OR HYPERCAPNIA (2) COPD (chronic obstructive pulmonary disease) Assessment/Plan: NEBS PULM CONSULT Code(s): J44.9 - CHRONIC OBSTRUCTIVE PULMONARY DISEASE, UNSPECIFIED Qualifiers: COPD type: unspecified COPD Qualified Code(s): J44.9 - Chronic obstructive pulmonary disease, unspecified (3) Laryngeal squamous cell carcinoma Code(s): C32.9 - MALIGNANT NEOPLASM OF LARYNX, UNSPECIFIED
[2017-07-23] MEDS ORDERED: ACETYLCYSTEINE 20% 200MG/ML 4 ML VIAL *FOR ORAL / INH USE ONLY PO SCH (08:00)
[2017-07-23] MEDS ORDERED: ALBUTEROL SO4 2.5/IPRATROPIUM 0.5 INH SOL 3 ML VIAL.NEB. NEB SCH (08:00)
[2017-07-23 08:52] LABS: BASO % 0.9 % (0-2.0); EOS % 7.7 % (0-4.5); HEMATOCRIT 37.7 % (35.4-49); HEMOGLOBIN 12.5 GM/dL (11.7-16.9); LYMPH % 33.8 % (8-40); MCH 28.3 pg (25.7-33.7); MCHC 33.3 g/dl (32.0-35.9); MEAN PLT VOLUME 8.7 fl (7.5-11.1); MONO % 8.2 % (3.8-10.2); NEUT % 49.4 % (42.8-82.8); PLATELET COUNT 205 K/MM3 (134-434); RBC 4.44 M/mm3 (4.00-5.60); RDW 14.6 % (11.9-15.9); WHITE BLOOD COUNT 6.3 K/mm3 (4.0-10.0)
[2017-07-23] MEDS: ALBUTEROL SO4 0.083% IH SOL 2.5 MG/3 ML VIAL.NEB. NEB SCH ×4 (09:45→20:39)
[2017-07-23 09:53] LABS: CHLORIDE 104 mmol/L (98-107); POTASSIUM 4.4 mmol/L (3.5-5.1); SODIUM 142 mmol/L (136-145)
[2017-07-23 09:58] LABS: ANION GAP 11 (8-16); BLOOD UREA NITROGEN 16 mg/dL (7-18); CALCIUM 9.1 mg/dL (8.5-10.1); CO2 27 mmol/L (21-32); CREATININE 1.2 mg/dL (0.7-1.3); GLUCOSE,RANDOM 92 mg/dL (74-106); MAGNESIUM 2.2 mg/dL (1.8-2.4); PHOSPHOROUS 5.2 mg/dL (2.5-4.9)
[2017-07-23] MEDS ORDERED: SERTRALINE HCL 150 MG PO SCH (10:00)
[2017-07-23] MEDS: ASPIRIN 81 MG CHEWABLE TABLETS PO SCH (10:27)
[2017-07-23] MEDS: NYSTATIN POWDER 100,000 UNITS/GM - 15 GM TOPICAL POWDER TP SCH ×2 (10:28→21:22)
[2017-07-23] MEDS: METOPROLOL TARTRATE 25 MG TABLET (FP) PO SCH ×2 (10:28→21:21)
[2017-07-23] MEDS: ALLOPURINOL 100 MG TABLET (FP) PO SCH (10:28)
[2017-07-23] MEDS: amLODIPine BESYLATE 10 MG TABLET (FP) PO SCH (10:29)
[2017-07-23] MEDS: BACITRACIN 15 GM TUBE TOPICAL OINTMENT TP SCH ×3 (10:29→21:24)
--- NOTE | 2017-07-23 11:06 | EKG ---
Test Reason : Blood Pressure : / mmHG Vent. Rate : 069 BPM Atrial Rate : 069 BPM P-R Int : 164 ms QRS Dur : 082 ms QT Int : 416 ms P-R-T Axes : 038 -14 028 degrees QTc Int : 445 ms NORMAL SINUS RHYTHM INFERIOR INFARCT , AGE UNDETERMINED ABNORMAL ECG WHEN COMPARED WITH ECG OF 16-APR-2017 07:39, VENT. RATE HAS DECREASED BY 39 BPM INFERIOR INFARCT IS NOW PRESENT NONSPECIFIC T WAVE ABNORMALITY NO LONGER EVIDENT IN LATERAL LEADS QT HAS SHORTENED Confirmed by REBECCA BERMUDEZ MD ([id number]) on 07/23/2017 11:06:03 AM Referred By: Confirmed By:REBECCA BERMUDEZ MD
--- NOTE | 2017-07-23 11:32 | CON.PULM ---
Consult Consult Specialty:: PULMONARY Referred by:: Dr. 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 Trach was changed, suctioned and given nebulizer treatments. No fevers, chills or sweats. No chest pain or discomfort. +nonproductive cough without wheezing. CXR without any acute changes. Currently states shortness of breath resolved. - History Source History Provided By: Patient, Medical Record Limitations to Obtaining History: Physical Impairment (tracheostomy) - Past Medical History Cardio/Vascular: Yes: CAD, HTN, Hyperlipdemia Pulmonary: Yes: COPD, Other (Lung CA) Gastrointestinal: Yes: GI Bleed ENT: Yes: Other (Laryngeal Ca) - Alcohol/Substance Use Hx Alcohol Use: No - Smoking History Smoking history: Unknown if ever smoked Have you smoked in the past 12 months: No Aproximately how many cigarettes per day: 6 If you are a former smoker, when did you quit?: 6 - Social History Usual Living Arrangement: Longterm Home Medications - Allergies Allergies/Adverse Reactions: Allergies Allergy/AdvReac Type Severity Reaction Status Date / Time No Known Drug Allergies Allergy Verified 07/22/17 16:45 - Home Medications Home Medications: Ambulatory Orders Sertraline HCl [Zoloft] 150 mg PO DAILY 12/23/16 Allopurinol [Zyloprim -] 100 mg PO DAILY 02/12/17 Aspirin [ASA -] 81 mg PO DAILY 02/12/17 Bacitracin - [Bacitracin Topical Ointment -] 1 applic TP BID #4 tube 04/09/17 Gabapentin [Neurontin -] 400 mg PO TID #90 capsule 04/09/17 Metoprolol Tartrate [Lopressor -] 25 mg PO BID #60 tablet 04/09/17 Nystatin Powder [Nystop Powder -] 1 applic TP BID #1 applic 04/09/17 Albuterol 2.5/Ipratropium 0.5 [Duoneb -] 1 amp NEB Q6H 07/22/17 Allopurinol [Zyloprim -] 100 mg PO DAILY 07/22/17 Amitriptyline HCl 75 mg PO HS 07/22/17 Amlodipine Besylate [Norvasc -] 5 mg PO DAILY 07/22/17 Quetiapine Fumarate "Xr" [Seroquel XR] 200 mg PO HS@199907/22/17 Review of Systems - Review of Systems Constitutional: denies: Chills, Fever Eyes: denies: Recent Change in Vision HENT: denies: Nasal Congestion, Throat Pain Neck: denies: Stiffness, Tenderness Cardiovascular: reports: Shortness of Breath. denies: Chest Pain, Palpitations Respiratory: reports: Cough, SOB. denies: Hemoptysis, Wheezing Gastrointestinal: denies: Abdominal Pain, Nausea, Vomiting Genitourinary: denies: Dysuria, Hematuria Physical Exam Vital Sings: Vital Signs Temperature 98.0 F 07/23/17 06:00 Pulse Rate 65 07/23/17 06:00 Respiratory Rate 18 07/23/17 06:00 Blood Pressure 114/77 07/23/17 06:00 O2 Sat by Pulse Oximetry (%) 95 07/23/17 06:32 Constitutional: Yes: Calm Eyes: Yes: Conjunctiva Clear, EOM Intact HENT: Yes: Atraumatic, Normocephalic Neck: Yes: Supple, Trachea Midline Cardiovascular: Yes: Regular Rate and Rhythm Respiratory: Yes: Diminished (decreased breath sounds at the bases) ...Clubbing: No Gastrointestinal: Yes: Normal Bowel Sounds, Soft. No: Tenderness Edema: No Labs: CBC, BMP 07/23/17 08:00 07/23/17 08:00 ABG Results ABG pH 7.56 (7.35-7.45) H D 07/22/17 17:00 ABG pCO2 at Pt Temp 24.8 mmHg (35-45) L D 07/22/17 17:00 ABG pO2 at Pt Temp 80.6 mmHg (80-100) D 07/22/17 17:00 ABG HCO3 22.6 meq/L (22-26) 07/22/17 17:00 ABG O2 Sat (Measured) 96.8 % (90-98.9) 07/22/17 17:00 ABG O2 Content 24.0 % vol (15-22) H 07/22/17 17:00 ABG Base Excess 1.9 meq/l (-2-2) 07/22/17 17:00 Imaging - Results Chest X-ray: Report Reviewed, Image Reviewed (no infiltrates) Problem List - Problems (1) Dyspnea Code(s): R06.00 - DYSPNEA, UNSPECIFIED (2) Laryngeal squamous cell carcinoma Code(s): C32.9 - MALIGNANT NEOPLASM OF LARYNX, UNSPECIFIED (3) Lung cancer Code(s): C34.90 - MALIGNANT NEOPLASM OF UNSP PART OF UNSP BRONCHUS OR LUNG Qualifiers: Laterality: unspecified laterality Lung location: overlapping sites Qualified Code(s): C34.80 - Malignant neoplasm of overlapping sites of unspecified bronchus and lung Assessment/Plan Shortness of breath resolved NSCLC (Adenocarcinoma) Pyriform Sinus Squamous Cell Ca s/p Pharyngolaryngectomy s/p Tracheostomy COPD Chronic Bronchitis - continue inhaled bronchodilators - O2 to keep Spo2 >90% - on empiric antibiotics - f/u cultures - DVT prophylaxis thank you for this consult Kojo Manjarrez MD
[2017-07-23] MEDS ORDERED: cefTRIAXone SODIUM 1 GM VIAL ONE (11:52)
[2017-07-23] MEDS ORDERED: DEXTROSE 5%-WATER - 50 ML IVPB ONE (11:52)
[2017-07-23] MEDS: CEFTRIAXONE 1 GM in DEXTROSE 5%-WATER - 50 ML IVPB SCH (12:16)
[2017-07-23] MEDS: AMITRIPTYLINE HCL 75 MG TABLET PO SCH (21:23)
[2017-07-24] MEDS: GABAPENTIN 400 MG CAPSULE (FP) PO SCH ×3 (06:22→21:29)
[2017-07-24] MEDS: ALBUTEROL SO4 0.083% IH SOL 2.5 MG/3 ML VIAL.NEB. NEB SCH ×4 (07:40→21:10)
[2017-07-24] MEDS ORDERED: PT OWN MED DRAWER 7, Y5N ONE ×2 (09:09→21:17)
[2017-07-24] MEDS ORDERED: cefTRIAXone SODIUM 1 GM VIAL ONE (09:10)
[2017-07-24] MEDS ORDERED: DEXTROSE 5%-WATER - 50 ML IVPB ONE (09:10)
[2017-07-24] MEDS: BACITRACIN 15 GM TUBE TOPICAL OINTMENT TP SCH ×2 (11:46→21:28)
[2017-07-24] MEDS: ASPIRIN 81 MG CHEWABLE TABLETS PO SCH (11:46)
[2017-07-24] MEDS: amLODIPine BESYLATE 10 MG TABLET (FP) PO SCH (11:47)
[2017-07-24] MEDS: METOPROLOL TARTRATE 25 MG TABLET (FP) PO SCH ×2 (11:47→21:28)
[2017-07-24] MEDS: SERTRALINE HCL 50 MG TABLET (FP) PO SCH (11:48)
[2017-07-24] MEDS: ALLOPURINOL 100 MG TABLET (FP) PO SCH (11:48)
[2017-07-24] MEDS: NYSTATIN POWDER 100,000 UNITS/GM - 15 GM TOPICAL POWDER TP SCH ×2 (11:48→21:29)
[2017-07-24] MEDS: CEFTRIAXONE 1 GM in DEXTROSE 5%-WATER - 50 ML IVPB SCH (11:48)
--- NOTE | 2017-07-24 12:42 | PN ---
Progress Note, Physician History of Present Illness: PULMONARY ALERT,COMFORTABLE,-RESP DISTRESS - Current Medication List Current Medications: Active Medications Acetylcysteine (Mucomyst 20 Oral / Inh Use Only*) 400 mg IH RQID [facility] Albuterol Sulfate (Ventolin 0.083% Nebulizer Soln -) 1 amp NEB RQID [facility] Last Admin: 07/24/17 07:40 Dose: 1 amp Albuterol/Ipratropium (Duoneb -) 1 amp NEB Q4H PRN PRN Reason: SHORTNESS OF BREATH Last Admin: 07/23/17 08:00 Dose: 1 amp Allopurinol (Zyloprim -) 100 mg PO DAILY [facility] Last Admin: 07/24/17 11:48 Dose: 100 mg Amitriptyline HCl (Elavil -) 75 mg PO HS [facility] Last Admin: 07/23/17 21:23 Dose: 75 mg Amlodipine Besylate (Norvasc -) 5 mg PO DAILY [facility] Last Admin: 07/24/17 11:47 Dose: 5 mg Aspirin (Asa -) 81 mg PO DAILY [facility] Last Admin: 07/24/17 11:46 Dose: 81 mg Bacitracin (Bacitracin -) 1 applic TP BID [facility] Last Admin: 07/24/17 11:46 Dose: 1 applic Gabapentin (Neurontin -) 400 mg PO TID [facility] Last Admin: 07/24/17 06:22 Dose: 400 mg Ceftriaxone Sodium 1 gm/ (Dextrose) 50 mls @ 100 mls/hr IVPB DAILY [facility] Last Admin: 07/24/17 11:48 Dose: 100 mls/hr Metoprolol Tartrate (Lopressor -) 25 mg PO BID [facility] Last Admin: 07/24/17 11:47 Dose: 25 mg Nystatin (Nystop Powder -) 1 applic TP BID [facility] Last Admin: 07/24/17 11:48 Dose: Not Given Quetiapine Fumarate (Seroquel Xr -) 200 mg PO HS@2000 [facility] Last Admin: 07/23/17 21:24 Dose: 200 mg Sertraline HCl (Zoloft -) 150 mg PO DAILY [facility] Last Admin: 07/24/17 11:48 Dose: 150 mg - Objective Vital Signs: Vital Signs Temperature 98.2 F 07/24/17 06:36 Pulse Rate 92 H 07/24/17 06:36 Respiratory Rate 17 07/24/17 06:36 Blood Pressure 91/69 07/24/17 06:36 O2 Sat by Pulse Oximetry (%) 97 07/23/17 12:00 Constitutional: Yes: Well Nourished, Calm Eyes: Yes: WNL HENT: Yes: WNL (TRACH) Neck: Yes: WNL Cardiovascular: Yes: Regular Rate and Rhythm, S1, S2 Respiratory: Yes: Rhonchi (FEW RHONCHI) Gastrointestinal: Yes: Normal Bowel Sounds, Soft Extremities: Yes: WNL Edema: No Labs: CBC, BMP INR, PTT INR 1.01 (0.82-1.09) 07/22/17 16:53 Assessment/Plan Problem List - Problems (1) Dyspnea Code(s): R06.00 - DYSPNEA, UNSPECIFIED (2) Laryngeal squamous cell carcinoma Code(s): C32.9 - MALIGNANT NEOPLASM OF LARYNX, UNSPECIFIED (3) Lung cancer Code(s): C34.90 - MALIGNANT NEOPLASM OF UNSP PART OF UNSP BRONCHUS OR LUNG Qualifiers: Laterality: unspecified laterality Lung location: overlapping sites Qualified Code(s): C34.80 - Malignant neoplasm of overlapping sites of unspecified bronchus and lung Assessment/Plan Shortness of breath resolved NSCLC (Adenocarcinoma) 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
--- NOTE | 2017-07-24 14:52 | CON.ID ---
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 Patient was evaluated had his trachT changed, suctioned and given nebulizer treatments. patient denies any other symptoms of fever n/v/dirrhoea patient received ceftriaxone also c/o of dry cough currently he feels much better - History Source History Provided By: Patient, Medical Record Limitations to Obtaining History: No Limitations - Past Medical History Cardio/Vascular: Yes: CAD, HTN, Hyperlipdemia Pulmonary: Yes: COPD, Other (Lung CA) Gastrointestinal: Yes: GI Bleed ENT: Yes: Other (Laryngeal Ca) - Alcohol/Substance Use Hx Alcohol Use: No - Smoking History Smoking history: Unknown if ever smoked Have you smoked in the past 12 months: No Aproximately how many cigarettes per day: 6 If you are a former smoker, when did you quit?: 6 - Social History Usual Living Arrangement: [facility] Home Medications - Allergies Allergies/Adverse Reactions: Allergies Allergy/AdvReac Type Severity Reaction Status Date / Time No Known Drug Allergies Allergy Verified 07/22/17 16:45 - Home Medications Home Medications: Ambulatory Orders Sertraline HCl [Zoloft] 150 mg PO DAILY 12/23/16 Allopurinol [Zyloprim -] 100 mg PO DAILY 02/12/17 Aspirin [ASA -] 81 mg PO DAILY 02/12/17 Bacitracin - [Bacitracin Topical Ointment -] 1 applic TP BID #4 tube 04/09/17 Gabapentin [Neurontin -] 400 mg PO TID #90 capsule 04/09/17 Metoprolol Tartrate [Lopressor -] 25 mg PO BID #60 tablet 04/09/17 Nystatin Powder [Nystop Powder -] 1 applic TP BID #1 applic 04/09/17 Albuterol 2.5/Ipratropium 0.5 [Duoneb -] 1 amp NEB Q6H 07/22/17 Allopurinol [Zyloprim -] 100 mg PO DAILY 07/22/17 Amitriptyline HCl 75 mg PO HS 07/22/17 Amlodipine Besylate [Norvasc -] 5 mg PO DAILY 07/22/17 Quetiapine Fumarate "Xr" [Seroquel XR] 200 mg PO HS@199907/22/17 Review of Systems - Review of Systems Constitutional: reports: No Symptoms Eyes: reports: No Symptoms HENT: reports: No Symptoms Neck: reports: No Symptoms Cardiovascular: reports: No Symptoms Respiratory: reports: SOB Gastrointestinal: reports: No Symptoms Genitourinary: reports: No Symptoms Musculoskeletal: reports: No Symptoms Integumentary: reports: No Symptoms Neurological: reports: No Symptoms Endocrine: reports: No Symptoms Hematology/Lymphatic: reports: No Symptoms Psychiatric: reports: No Symptoms Physical Exam Vital Signs: Vital Signs Temperature 98.2 F 07/24/17 06:36 Pulse Rate 92 H 07/24/17 06:36 Respiratory Rate 17 07/24/17 06:36 Blood Pressure 91/69 07/24/17 06:36 O2 Sat by Pulse Oximetry (%) 97 07/23/17 12:00 Constitutional: Yes: Well Nourished, No Distress, Calm Eyes: Yes: Conjunctiva Clear HENT: Yes: Atraumatic, Normocephalic Neck: Yes: Supple, Other (trach in place) Respiratory: Yes: Regular, CTA Bilaterally Gastrointestinal: Yes: Normal Bowel Sounds, Soft Musculoskeletal: Yes: WNL Extremities: Yes: WNL Neurological: Yes: Alert, Oriented Psychiatric: Yes: Alert, Oriented Labs: CBC, BMP 07/23/17 08:00 07/23/17 08:00 Imaging - Results Chest X-ray: Report Reviewed, Image Reviewed Assessment/Plan Problem List - Problems (1) Dyspnea Code(s): R06.00 - DYSPNEA, UNSPECIFIED (2) JOSE (acute kidney injury) Code(s): N17.9 - ACUTE KIDNEY FAILURE, UNSPECIFIED (3) Acute and chronic respiratory failure Code(s): J96.20 - ACUTE AND CHR RESP FAILURE, UNSP W HYPOXIA OR HYPERCAPNIA (4) COPD (chronic obstructive pulmonary disease) Code(s): J44.9 - CHRONIC OBSTRUCTIVE PULMONARY DISEASE, UNSPECIFIED Qualifiers: COPD type: unspecified COPD Qualified Code(s): J44.9 - Chronic obstructive pulmonary disease, unspecified (5) Laryngeal squamous cell carcinoma Code(s): C32.9 - MALIGNANT NEOPLASM OF LARYNX, UNSPECIFIED Assessment/Plan we will continue ceftriaxone resp support await for all cx reports rest as per primary team
--- NOTE | 2017-07-24 17:46 | PN ---
Progress Note, Physician Chief Complaint: AWAKE ALERT THIS IS MY FIRST ENCOUNTER WITH THIS PATIENT CHART AND NOTES REVIEWED - Current Medication List Current Medications: Active Medications Acetylcysteine (Mucomyst 20 Oral / Inh Use Only*) 400 mg IH RQID [facility] Albuterol Sulfate (Ventolin 0.083% Nebulizer Soln -) 1 amp NEB RQID [facility] Last Admin: 07/24/17 15:50 Dose: 1 amp Albuterol/Ipratropium (Duoneb -) 1 amp NEB Q4H PRN PRN Reason: SHORTNESS OF BREATH Last Admin: 07/23/17 08:00 Dose: 1 amp Allopurinol (Zyloprim -) 100 mg PO DAILY [facility] Last Admin: 07/24/17 11:48 Dose: 100 mg Amitriptyline HCl (Elavil -) 75 mg PO HS [facility] Last Admin: 07/23/17 21:23 Dose: 75 mg Amlodipine Besylate (Norvasc -) 5 mg PO DAILY [facility] Last Admin: 07/24/17 11:47 Dose: 5 mg Aspirin (Asa -) 81 mg PO DAILY [facility] Last Admin: 07/24/17 11:46 Dose: 81 mg Bacitracin (Bacitracin -) 1 applic TP BID [facility] Last Admin: 07/24/17 11:46 Dose: 1 applic Gabapentin (Neurontin -) 400 mg PO TID [facility] Last Admin: 07/24/17 14:51 Dose: 400 mg Ceftriaxone Sodium 1 gm/ (Dextrose) 50 mls @ 100 mls/hr IVPB DAILY [facility] Last Admin: 07/24/17 11:48 Dose: 100 mls/hr Metoprolol Tartrate (Lopressor -) 25 mg PO BID [facility] Last Admin: 07/24/17 11:47 Dose: 25 mg Nystatin (Nystop Powder -) 1 applic TP BID [facility] Last Admin: 07/24/17 11:48 Dose: Not Given Quetiapine Fumarate (Seroquel Xr -) 200 mg PO HS@2000 [facility] Last Admin: 07/23/17 21:24 Dose: 200 mg Sertraline HCl (Zoloft -) 150 mg PO DAILY [facility] Last Admin: 07/24/17 11:48 Dose: 150 mg - Objective Vital Signs: Vital Signs Temperature 98.1 F 07/24/17 15:01 Pulse Rate 76 07/24/17 15:01 Respiratory Rate 18 07/24/17 15:01 Blood Pressure 113/58 07/24/17 15:01 O2 Sat by Pulse Oximetry (%) 97 07/24/17 13:40 Constitutional: Yes: Mild Distress Eyes: Yes: WNL HENT: Yes: WNL Neck: Yes: WNL Respiratory: Yes: Other (TRACHEOSTOMY WITH 02 SUPPORT) Gastrointestinal: Yes: WNL Genitourinary: Yes: WNL Musculoskeletal: Yes: WNL Extremities: Yes: WNL Edema: No Peripheral Pulses WNL: Yes Integumentary: Yes: WNL Wound/Incision: Yes: Clean/Dry Neurological: Yes: WNL ...Motor Strength: WNL Psychiatric: Yes: WNL Labs: CBC, BMP 07/23/17 08:00 07/23/17 08:00 INR, PTT INR 1.01 (0.82-1.09) 07/22/17 16:53 Problem List - Problems (1) Dyspnea Code(s): R06.00 - DYSPNEA, UNSPECIFIED (2) JOSE (acute kidney injury) Code(s): N17.9 - ACUTE KIDNEY FAILURE, UNSPECIFIED (3) Acute and chronic respiratory failure Code(s): J96.20 - ACUTE AND CHR RESP FAILURE, UNSP W HYPOXIA OR HYPERCAPNIA (4) COPD (chronic obstructive pulmonary disease) Code(s): J44.9 - CHRONIC OBSTRUCTIVE PULMONARY DISEASE, UNSPECIFIED Qualifiers: COPD type: unspecified COPD Qualified Code(s): J44.9 - Chronic obstructive pulmonary disease, unspecified (5) Laryngeal squamous cell carcinoma Code(s): C32.9 - MALIGNANT NEOPLASM OF LARYNX, UNSPECIFIED Assessment/Plan IV ABX AND IV STEROIDS CONTINUE ID AND PULM FOLLOW UP OOB TO CHAIR WILL NEED SNF CHECK LABS
[2017-07-24] MEDS: AMITRIPTYLINE HCL 75 MG TABLET PO SCH (21:28)
[2017-07-25] MEDS: GABAPENTIN 400 MG CAPSULE (FP) PO SCH ×3 (06:23→21:36)
[2017-07-25 07:43] LABS: HEMATOCRIT 36.2 % (35.4-49); HEMOGLOBIN 12.4 GM/dL (11.7-16.9); MCH 28.8 pg (25.7-33.7); MCHC 34.2 g/dl (32.0-35.9); MEAN CELL VOLUME 84.4 fl (80-96); MEAN PLT VOLUME 8.8 fl (7.5-11.1); PLATELET COUNT 189 K/MM3 (134-434); RBC 4.29 M/mm3 (4.00-5.60); RDW 14.6 % (11.9-15.9); WHITE BLOOD COUNT 7.2 K/mm3 (4.0-10.0)
[2017-07-25 07:53] LABS: ANION GAP 6 (8-16); BLOOD UREA NITROGEN 19 mg/dL (7-18); CALCIUM 8.6 mg/dL (8.5-10.1); CHLORIDE 105 mmol/L (98-107); CO2 28 mmol/L (21-32); GLUCOSE,RANDOM 92 mg/dL (74-106); POTASSIUM 4.1 mmol/L (3.5-5.1); SODIUM 139 mmol/L (136-145)
[2017-07-25] MEDS: ALBUTEROL SO4 0.083% IH SOL 2.5 MG/3 ML VIAL.NEB. NEB SCH ×4 (08:53→19:40)
[2017-07-25] MEDS ORDERED: DEXTROSE 5%-WATER - 50 ML IVPB ONE (10:53)
[2017-07-25] MEDS ORDERED: cefTRIAXone SODIUM 1 GM VIAL ONE (10:53)
[2017-07-25] MEDS: CEFTRIAXONE 1 GM in DEXTROSE 5%-WATER - 50 ML IVPB SCH (11:12)
[2017-07-25] MEDS: SERTRALINE HCL 50 MG TABLET (FP) PO SCH (11:13)
[2017-07-25] MEDS: amLODIPine BESYLATE 10 MG TABLET (FP) PO SCH (11:13)
[2017-07-25] MEDS: ALLOPURINOL 100 MG TABLET (FP) PO SCH (11:13)
[2017-07-25] MEDS: METOPROLOL TARTRATE 25 MG TABLET (FP) PO SCH ×2 (11:14→21:35)
[2017-07-25] MEDS: ASPIRIN 81 MG CHEWABLE TABLETS PO SCH (11:14)
[2017-07-25] MEDS: BACITRACIN 15 GM TUBE TOPICAL OINTMENT TP SCH ×2 (11:15→21:34)
[2017-07-25] MEDS: NYSTATIN POWDER 100,000 UNITS/GM - 15 GM TOPICAL POWDER TP SCH ×2 (11:16→21:37)
--- NOTE | 2017-07-25 11:52 | PN ---
Progress Note, Physician Chief Complaint: AWAKE ALERT MILD DISTRESS O2 TRACHCOLLAR - Current Medication List Current Medications: Active Medications Acetylcysteine (Mucomyst 20 Oral / Inh Use Only*) 400 mg IH RQID [facility] Albuterol Sulfate (Ventolin 0.083% Nebulizer Soln -) 1 amp NEB RQID [facility] Last Admin: 07/25/17 08:53 Dose: 1 amp Albuterol/Ipratropium (Duoneb -) 1 amp NEB Q4H PRN PRN Reason: SHORTNESS OF BREATH Last Admin: 07/23/17 08:00 Dose: 1 amp Allopurinol (Zyloprim -) 100 mg PO DAILY [facility] Last Admin: 07/25/17 11:13 Dose: 100 mg Amitriptyline HCl (Elavil -) 75 mg PO HS [facility] Last Admin: 07/24/17 21:28 Dose: 75 mg Amlodipine Besylate (Norvasc -) 5 mg PO DAILY [facility] Last Admin: 07/25/17 11:13 Dose: 5 mg Aspirin (Asa -) 81 mg PO DAILY [facility] Last Admin: 07/25/17 11:14 Dose: 81 mg Bacitracin (Bacitracin -) 1 applic TP BID [facility] Last Admin: 07/25/17 11:15 Dose: 1 applic Gabapentin (Neurontin -) 400 mg PO TID [facility] Last Admin: 07/25/17 06:23 Dose: 400 mg Ceftriaxone Sodium 1 gm/ (Dextrose) 50 mls @ 100 mls/hr IVPB DAILY [facility] Last Admin: 07/25/17 11:12 Dose: 100 mls/hr Metoprolol Tartrate (Lopressor -) 25 mg PO BID [facility] Last Admin: 07/25/17 11:14 Dose: 25 mg Nystatin (Nystop Powder -) 1 applic TP BID [facility] Last Admin: 07/25/17 11:16 Dose: Not Given Quetiapine Fumarate (Seroquel Xr -) 200 mg PO HS@2000 [facility] Last Admin: 07/24/17 21:27 Dose: 200 mg Sertraline HCl (Zoloft -) 150 mg PO DAILY [facility] Last Admin: 07/25/17 11:13 Dose: 150 mg - Objective Vital Signs: Vital Signs Temperature 97.9 F 07/25/17 07:01 Pulse Rate 66 07/25/17 07:01 Respiratory Rate 18 04/07/18 07:01 Blood Pressure 131/94 04/07/18 07:01 O2 Sat by Pulse Oximetry (%) 97 07/24/17 21:15 Constitutional: Yes: Mild Distress Eyes: Yes: WNL HENT: Yes: WNL Neck: Yes: WNL Cardiovascular: Yes: WNL Respiratory: Yes: Other (TRACHCOLLAR) Gastrointestinal: Yes: WNL Genitourinary: Yes: WNL Musculoskeletal: Yes: Muscle Weakness Extremities: Yes: WNL Edema: No Peripheral Pulses WNL: Yes Integumentary: Yes: WNL Wound/Incision: Yes: Dressing Dry and Intact Neurological: Yes: Pre-Existing Deficit ...Motor Strength: WNL Psychiatric: Yes: WNL Labs: CBC, BMP 07/25/17 07:10 07/25/17 07:10 INR, PTT INR 1.01 (0.82-1.09) 07/22/17 16:53 Problem List - Problems (1) Dyspnea Code(s): R06.00 - DYSPNEA, UNSPECIFIED (2) JOSE (acute kidney injury) Code(s): N17.9 - ACUTE KIDNEY FAILURE, UNSPECIFIED (3) Acute and chronic respiratory failure Code(s): J96.20 - ACUTE AND CHR RESP FAILURE, UNSP W HYPOXIA OR HYPERCAPNIA (4) COPD (chronic obstructive pulmonary disease) Code(s): J44.9 - CHRONIC OBSTRUCTIVE PULMONARY DISEASE, UNSPECIFIED Qualifiers: COPD type: unspecified COPD Qualified Code(s): J44.9 - Chronic obstructive pulmonary disease, unspecified (5) Laryngeal squamous cell carcinoma Code(s): C32.9 - MALIGNANT NEOPLASM OF LARYNX, UNSPECIFIED Assessment/Plan IV ABX AND IV STEROIDS CONTINUE ID AND PULM FOLLOW UP OOB TO CHAIR WILL NEED SNF CHECK LABS
--- NOTE | 2017-07-25 11:54 | PN ---
Progress Note, Physician History of Present Illness: much better no complaints breathing much better - Current Medication List Current Medications: Active Medications Acetylcysteine (Mucomyst 20 Oral / Inh Use Only*) 400 mg IH RQID [facility] Albuterol Sulfate (Ventolin 0.083% Nebulizer Soln -) 1 amp NEB RQID [facility] Last Admin: 07/25/17 08:53 Dose: 1 amp Albuterol/Ipratropium (Duoneb -) 1 amp NEB Q4H PRN PRN Reason: SHORTNESS OF BREATH Last Admin: 07/23/17 08:00 Dose: 1 amp Allopurinol (Zyloprim -) 100 mg PO DAILY [facility] Last Admin: 07/25/17 11:13 Dose: 100 mg Amitriptyline HCl (Elavil -) 75 mg PO HS [facility] Last Admin: 07/24/17 21:28 Dose: 75 mg Amlodipine Besylate (Norvasc -) 5 mg PO DAILY [facility] Last Admin: 07/25/17 11:13 Dose: 5 mg Aspirin (Asa -) 81 mg PO DAILY [facility] Last Admin: 07/25/17 11:14 Dose: 81 mg Bacitracin (Bacitracin -) 1 applic TP BID [facility] Last Admin: 07/25/17 11:15 Dose: 1 applic Gabapentin (Neurontin -) 400 mg PO TID [facility] Last Admin: 07/25/17 06:23 Dose: 400 mg Ceftriaxone Sodium 1 gm/ (Dextrose) 50 mls @ 100 mls/hr IVPB DAILY [facility] Last Admin: 07/25/17 11:12 Dose: 100 mls/hr Metoprolol Tartrate (Lopressor -) 25 mg PO BID [facility] Last Admin: 07/25/17 11:14 Dose: 25 mg Nystatin (Nystop Powder -) 1 applic TP BID [facility] Last Admin: 07/25/17 11:16 Dose: Not Given Quetiapine Fumarate (Seroquel Xr -) 200 mg PO HS@2000 [facility] Last Admin: 07/24/17 21:27 Dose: 200 mg Sertraline HCl (Zoloft -) 150 mg PO DAILY [facility] Last Admin: 07/25/17 11:13 Dose: 150 mg - Objective Vital Signs: Vital Signs Temperature 97.9 F 07/25/17 07:01 Pulse Rate 66 07/25/17 07:01 Respiratory Rate 18 07/25/17 07:01 Blood Pressure 131/94 04/07/18 07:01 O2 Sat by Pulse Oximetry (%) 97 07/24/17 21:15 Constitutional: Yes: No Distress, Calm HENT: Yes: Atraumatic Neck: Yes: Supple, Other (trach) Cardiovascular: Yes: Regular Rate and Rhythm Respiratory: Yes: Regular, Other (on trach collar) Gastrointestinal: Yes: Normal Bowel Sounds, Soft Musculoskeletal: Yes: WNL Extremities: Yes: WNL Neurological: Yes: Alert, Oriented Psychiatric: Yes: Alert, Oriented Labs: CBC, BMP 07/25/17 07:10 07/25/17 07:10 INR, PTT INR 1.01 (0.82-1.09) 07/22/17 16:53 Assessment/Plan Problem List - Problems (1) Dyspnea Code(s): R06.00 - DYSPNEA, UNSPECIFIED (2) JOSE (acute kidney injury) Code(s): N17.9 - ACUTE KIDNEY FAILURE, UNSPECIFIED (3) Acute and chronic respiratory failure Code(s): J96.20 - ACUTE AND CHR RESP FAILURE, UNSP W HYPOXIA OR HYPERCAPNIA (4) COPD (chronic obstructive pulmonary disease) Code(s): J44.9 - CHRONIC OBSTRUCTIVE PULMONARY DISEASE, UNSPECIFIED Qualifiers: COPD type: unspecified COPD Qualified Code(s): J44.9 - Chronic obstructive pulmonary disease, unspecified (5) Laryngeal squamous cell carcinoma Code(s): C32.9 - MALIGNANT NEOPLASM OF LARYNX, UNSPECIFIED Assessment/Plan continue abx will probably deescalte by thursday resp suport rest as per primary team
--- NOTE | 2017-07-25 12:29 | PN ---
Progress Note, Physician History of Present Illness: pulmonary alert,comfortable,-resp distress,+ thick tracheal secretions - Current Medication List Current Medications: Active Medications Acetylcysteine (Mucomyst 20 Oral / Inh Use Only*) 400 mg IH RQID [facility] Albuterol Sulfate (Ventolin 0.083% Nebulizer Soln -) 1 amp NEB RQID [facility] Last Admin: 07/25/17 08:53 Dose: 1 amp Albuterol/Ipratropium (Duoneb -) 1 amp NEB Q4H PRN PRN Reason: SHORTNESS OF BREATH Last Admin: 07/23/17 08:00 Dose: 1 amp Allopurinol (Zyloprim -) 100 mg PO DAILY [facility] Last Admin: 07/25/17 11:13 Dose: 100 mg Amitriptyline HCl (Elavil -) 75 mg PO HS [facility] Last Admin: 07/24/17 21:28 Dose: 75 mg Amlodipine Besylate (Norvasc -) 5 mg PO DAILY [facility] Last Admin: 07/25/17 11:13 Dose: 5 mg Aspirin (Asa -) 81 mg PO DAILY [facility] Last Admin: 07/25/17 11:14 Dose: 81 mg Bacitracin (Bacitracin -) 1 applic TP BID [facility] Last Admin: 07/25/17 11:15 Dose: 1 applic Gabapentin (Neurontin -) 400 mg PO TID [facility] Last Admin: 07/25/17 06:23 Dose: 400 mg Ceftriaxone Sodium 1 gm/ (Dextrose) 50 mls @ 100 mls/hr IVPB DAILY [facility] Last Admin: 07/25/17 11:12 Dose: 100 mls/hr Metoprolol Tartrate (Lopressor -) 25 mg PO BID [facility] Last Admin: 07/25/17 11:14 Dose: 25 mg Nystatin (Nystop Powder -) 1 applic TP BID [facility] Last Admin: 07/25/17 11:16 Dose: Not Given Quetiapine Fumarate (Seroquel Xr -) 200 mg PO HS@2000 [facility] Last Admin: 07/24/17 21:27 Dose: 200 mg Sertraline HCl (Zoloft -) 150 mg PO DAILY [facility] Last Admin: 07/25/17 11:13 Dose: 150 mg - Objective Vital Signs: Vital Signs Temperature 97.9 F 07/25/17 07:01 Pulse Rate 66 07/25/17 07:01 Respiratory Rate 18 07/25/17 07:01 Blood Pressure 131/94 07/25/17 07:01 O2 Sat by Pulse Oximetry (%) 97 07/24/17 21:15 Constitutional: Yes: Well Nourished, Calm Eyes: Yes: WNL HENT: Yes: WNL Neck: Yes: Supple (trach) Cardiovascular: Yes: Regular Rate and Rhythm, S1, S2 Respiratory: Yes: Rhonchi (few scattered rhonchi) Gastrointestinal: Yes: Normal Bowel Sounds, Soft Extremities: Yes: WNL Edema: No Labs: CBC, BMP 07/25/17 07:10 07/25/17 07:10 INR, PTT INR 1.01 (0.82-1.09) 07/22/17 16:53 Assessment/Plan Problem List - Problems (1) Dyspnea Code(s): R06.00 - DYSPNEA, UNSPECIFIED (2) Laryngeal squamous cell carcinoma Code(s): C32.9 - MALIGNANT NEOPLASM OF LARYNX, UNSPECIFIED (3) Lung cancer Code(s): C34.90 - MALIGNANT NEOPLASM OF UNSP PART OF UNSP BRONCHUS OR LUNG Qualifiers: Laterality: unspecified laterality Lung location: overlapping sites Qualified Code(s): C34.80 - Malignant neoplasm of overlapping sites of unspecified bronchus and lung Assessment/Plan Shortness of breath resolved NSCLC (Adenocarcinoma) 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
[2017-07-25] MEDS ORDERED: PT OWN MED DRAWER 7, Y5N ONE (19:21)
[2017-07-25] MEDS: AMITRIPTYLINE HCL 75 MG TABLET PO SCH (21:33)
[2017-07-26] MEDS: GABAPENTIN 400 MG CAPSULE (FP) PO SCH ×3 (05:52→21:16)
[2017-07-26] MEDS ORDERED: PT OWN MED DRAWER 7, Y5N ONE (06:46)
[2017-07-26] MEDS: ALBUTEROL SO4 0.083% IH SOL 2.5 MG/3 ML VIAL.NEB. NEB SCH ×4 (08:44→19:45)
[2017-07-26] MEDS ORDERED: cefTRIAXone SODIUM 1 GM VIAL ONE (10:57)
[2017-07-26] MEDS ORDERED: DEXTROSE 5%-WATER - 50 ML IVPB ONE (10:58)
[2017-07-26] MEDS: METOPROLOL TARTRATE 25 MG TABLET (FP) PO SCH ×2 (10:59→21:16)
[2017-07-26] MEDS: amLODIPine BESYLATE 10 MG TABLET (FP) PO SCH (10:59)
[2017-07-26] MEDS: ALLOPURINOL 100 MG TABLET (FP) PO SCH (10:59)
[2017-07-26] MEDS: ASPIRIN 81 MG CHEWABLE TABLETS PO SCH (10:59)
[2017-07-26] MEDS: SERTRALINE HCL 50 MG TABLET (FP) PO SCH (11:00)
[2017-07-26] MEDS: NYSTATIN POWDER 100,000 UNITS/GM - 15 GM TOPICAL POWDER TP SCH ×2 (11:00→21:19)
[2017-07-26] MEDS: BACITRACIN 15 GM TUBE TOPICAL OINTMENT TP SCH ×2 (11:00→21:18)
[2017-07-26] MEDS: CEFTRIAXONE 1 GM in DEXTROSE 5%-WATER - 50 ML IVPB SCH (11:00)
--- NOTE | 2017-07-26 12:09 | PN ---
Progress Note, Physician History of Present Illness: pulmonary alert,,feeling better,comfortable,-resp distress,+ tracheal secretions - Current Medication List Current Medications: Active Medications Acetylcysteine (Mucomyst 20 Oral / Inh Use Only*) 400 mg IH RQID [facility] Albuterol Sulfate (Ventolin 0.083% Nebulizer Soln -) 1 amp NEB RQID [facility] Last Admin: 07/26/17 08:44 Dose: 1 amp Albuterol/Ipratropium (Duoneb -) 1 amp NEB Q4H PRN PRN Reason: SHORTNESS OF BREATH Last Admin: 07/23/17 08:00 Dose: 1 amp Allopurinol (Zyloprim -) 100 mg PO DAILY [facility] Last Admin: 07/26/17 10:59 Dose: 100 mg Amitriptyline HCl (Elavil -) 75 mg PO HS [facility] Last Admin: 07/25/17 21:33 Dose: 75 mg Amlodipine Besylate (Norvasc -) 5 mg PO DAILY [facility] Last Admin: 07/26/17 10:59 Dose: 5 mg Aspirin (Asa -) 81 mg PO DAILY [facility] Last Admin: 07/26/17 10:59 Dose: 81 mg Bacitracin (Bacitracin -) 1 applic TP BID [facility] Last Admin: 07/26/17 11:00 Dose: 1 applic Gabapentin (Neurontin -) 400 mg PO TID [facility] Last Admin: 07/26/17 05:52 Dose: 400 mg Ceftriaxone Sodium 1 gm/ (Dextrose) 50 mls @ 100 mls/hr IVPB DAILY [facility] Last Admin: 07/26/17 11:00 Dose: 100 mls/hr Metoprolol Tartrate (Lopressor -) 25 mg PO BID [facility] Last Admin: 07/26/17 10:59 Dose: 25 mg Nystatin (Nystop Powder -) 1 applic TP BID [facility] Last Admin: 07/26/17 11:00 Dose: Not Given Quetiapine Fumarate (Seroquel Xr -) 200 mg PO HS@1999 [facility] Last Admin: 07/25/17 21:34 Dose: 200 mg Sertraline HCl (Zoloft -) 150 mg PO DAILY [facility] Last Admin: 07/26/17 11:00 Dose: 150 mg - Objective Vital Signs: Vital Signs Temperature 98.1 F 07/26/17 07:12 Pulse Rate 62 07/26/17 07:12 Respiratory Rate 20 07/26/17 07:12 Blood Pressure 161/92 07/26/17 07:12 O2 Sat by Pulse Oximetry (%) 96 07/25/17 20:45 Constitutional: Yes: Well Nourished, Calm Eyes: Yes: WNL HENT: Yes: WNL Neck: Yes: Supple (trach) Cardiovascular: Yes: Regular Rate and Rhythm, S1, S2 Respiratory: Yes: Rhonchi (few scattered sheree rhonchi) Gastrointestinal: Yes: Normal Bowel Sounds, Soft Extremities: Yes: WNL Edema: No Labs: CBC, BMP Assessment/Plan Problem List - Problems (1) Dyspnea Code(s): R06.00 - DYSPNEA, UNSPECIFIED (2) Laryngeal squamous cell carcinoma Code(s): C32.9 - MALIGNANT NEOPLASM OF LARYNX, UNSPECIFIED (3) Lung cancer Code(s): C34.90 - MALIGNANT NEOPLASM OF UNSP PART OF UNSP BRONCHUS OR LUNG Qualifiers: Laterality: unspecified laterality Lung location: overlapping sites Qualified Code(s): C34.80 - Malignant neoplasm of overlapping sites of unspecified bronchus and lung Assessment/Plan Shortness of breath resolved NSCLC (Adenocarcinoma) 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
--- NOTE | 2017-07-26 13:56 | PN ---
Physical Exam: SUBJECTIVE: Patient seen and examined and appears well. He is pleasant and with out any distress. Initially found sleeping comfortable OBJECTIVE: Vital Signs Period Temp Pulse Resp BP Sys/Clay Pulse Ox Last 24 Hr 97.9 F-98.8 F 62-85 18-20 102-161/56-92 96-97 GENERAL: The patient is awake, alert, and fully oriented, in no acute distress. HEAD: Normal with no signs of trauma. EYES: PERRL, extraocular movements intact, sclera anicteric, conjunctiva clear. No ptosis. NECK/ENT: #7 Fenestrated trach with 40% trach collar supplemented oxygen wihtout drainage or bleeding, moist mucous membranes. LUNGS: Breath sounds equal, clear to auscultation bilaterally, no wheezes, no crackles, no accessory muscle use. HEART: Regular rate and rhythm, S1, S2 without murmur, rub or gallop. ABDOMEN: Soft, nontender, nondistended, normoactive bowel sounds, no guarding, no rebound, no hepatosplenomegaly, no masses. EXTREMITIES: 2+ pulses, warm, well-perfused, no edema. NEUROLOGICAL: Cranial nerves II through XII grossly intact. Normal speech, gait not observed. PSYCH: Normal mood, normal affect. SKIN: Warm, dry, normal turgor, no rashes or lesions noted Active Medications Generic Name Dose Route Start Last Admin Trade Name Freq PRN Reason Stop Dose Admin Acetylcysteine 400 mg 07/23/17 16:26 Mucomyst 20 Oral / Inh Use Only* IH RQID [facility] Albuterol Sulfate 1 amp 07/23/17 08:15 07/26/17 12:29 Ventolin 0.083% Nebulizer Soln - NEB 1 amp RQID [facility] Administration Albuterol/Ipratropium 1 amp 07/22/17 20:47 07/23/17 08:00 Duoneb - NEB 1 amp Q4H PRN Administration SHORTNESS OF BREATH Allopurinol 100 mg 07/23/17 10:00 07/26/17 10:59 Zyloprim - PO 100 mg DAILY [facility] Administration Amitriptyline HCl 75 mg 07/22/17 22:00 07/25/17 21:33 Elavil - PO 75 mg HS [facility] Administration Amlodipine Besylate 5 mg 07/23/17 10:00 04/08/18 10:59 Norvasc - PO 5 mg DAILY [facility] Administration Aspirin 81 mg 07/23/17 10:00 07/26/17 10:59 Asa - PO 81 mg DAILY [facility] Administration Bacitracin 1 applic 07/22/17 22:00 07/26/17 11:00 Bacitracin - TP 1 applic BID [facility] Administration Gabapentin 400 mg 07/22/17 22:00 07/26/17 05:52 Neurontin - PO 400 mg TID [facility] Administration Ceftriaxone Sodium 1 gm/ 50 mls @ 100 mls/hr 07/23/17 10:45 07/26/17 11:00 Dextrose IVPB 100 mls/hr DAILY [facility] Administration Metoprolol Tartrate 25 mg 07/22/17 22:00 07/26/17 10:59 Lopressor - PO 25 mg BID [facility] Administration Nystatin 1 applic 07/22/17 22:00 07/26/17 11:00 Nystop Powder - TP Not Given BID [facility] Quetiapine Fumarate 200 mg 07/23/17 20:00 07/25/17 21:34 Seroquel Xr - PO 200 mg HS@2000 [facility] Administration Sertraline HCl 150 mg 07/23/17 10:36 07/26/17 11:00 Zoloft - PO 150 mg DAILY [facility] Administration ASSESSMENT/PLAN: This 57 yr old male who has a significant hx of larygeal CA s/p surgical intervention and trach dependant was in [facility] as a resident and developed increase SOB after a trach change. He was admitted now with a fenestrated #7 trach, on Rocephin, monitored and improving with duo nebs and oxygen. Larygeal CA/trach dependant -fenestrated #7 patent on 40% trach collar -less secretions -pt states he feels better then initially -duonebs and mucomyst as prescribed -pulse ox -appreciate pulmonary consult and input. -antibiotic per ID consult FEN -peg tube for feeds and meds -monitor electrolytes and replete PRN -VT proph with SCD HTN -continue meds from home Dispo: Showing improvement plan for possible discharge to [facility] tomorrow Visit type - Emergency Visit Emergency Visit: Yes ED Registration Date: 07/23/17 Care time: The patient presented to the Emergency Department on the above date and was hospitalized for further evaluation of their emergent condition. - New Patient This patient is new to me today: Yes Date on this admission: 07/26/17 - Critical Care Critical Care patient: No - Discharge Referral Referred to [facility] No
--- NOTE | 2017-07-26 14:22 | PN ---
Progress Note, Physician History of Present Illness: no complaints breathing much better - Current Medication List Current Medications: Active Medications Acetylcysteine (Mucomyst 20 Oral / Inh Use Only*) 400 mg IH RQID [facility] Albuterol Sulfate (Ventolin 0.083% Nebulizer Soln -) 1 amp NEB RQID [facility] Last Admin: 07/26/17 12:29 Dose: 1 amp Albuterol/Ipratropium (Duoneb -) 1 amp NEB Q4H PRN PRN Reason: SHORTNESS OF BREATH Last Admin: 07/23/17 08:00 Dose: 1 amp Allopurinol (Zyloprim -) 100 mg PO DAILY [facility] Last Admin: 07/26/17 10:59 Dose: 100 mg Amitriptyline HCl (Elavil -) 75 mg PO HS [facility] Last Admin: 07/25/17 21:33 Dose: 75 mg Amlodipine Besylate (Norvasc -) 5 mg PO DAILY [facility] Last Admin: 07/26/17 10:59 Dose: 5 mg Aspirin (Asa -) 81 mg PO DAILY [facility] Last Admin: 07/26/17 10:59 Dose: 81 mg Bacitracin (Bacitracin -) 1 applic TP BID [facility] Last Admin: 07/26/17 11:00 Dose: 1 applic Gabapentin (Neurontin -) 400 mg PO TID [facility] Last Admin: 07/26/17 05:52 Dose: 400 mg Ceftriaxone Sodium 1 gm/ (Dextrose) 50 mls @ 100 mls/hr IVPB DAILY [facility] Last Admin: 07/26/17 11:00 Dose: 100 mls/hr Metoprolol Tartrate (Lopressor -) 25 mg PO BID [facility] Last Admin: 07/26/17 10:59 Dose: 25 mg Nystatin (Nystop Powder -) 1 applic TP BID [facility] Last Admin: 07/26/17 11:00 Dose: Not Given Quetiapine Fumarate (Seroquel Xr -) 200 mg PO HS@2000 [facility] Last Admin: 07/25/17 21:34 Dose: 200 mg Sertraline HCl (Zoloft -) 150 mg PO DAILY [facility] Last Admin: 07/26/17 11:00 Dose: 150 mg - Objective Vital Signs: Vital Signs Temperature 98.1 F 07/26/17 07:12 Pulse Rate 62 07/26/17 07:12 Respiratory Rate 20 07/26/17 07:12 Blood Pressure 161/92 07/26/17 07:12 O2 Sat by Pulse Oximetry (%) 96 07/25/17 20:45 Constitutional: Yes: No Distress, Calm Cardiovascular: Yes: Regular Rate and Rhythm Respiratory: Yes: Poor Air Entry, Other Gastrointestinal: Yes: Normal Bowel Sounds, Soft Musculoskeletal: Yes: WNL Extremities: Yes: WNL Neurological: Yes: Alert, Oriented Psychiatric: Yes: Alert, Oriented Labs: CBC, BMP 07/25/17 07:10 07/25/17 07:10 INR, PTT INR 1.01 (0.82-1.09) 07/22/17 16:53 Assessment/Plan Problem List - Problems (1) Dyspnea Code(s): R06.00 - DYSPNEA, UNSPECIFIED (2) JOSE (acute kidney injury) Code(s): N17.9 - ACUTE KIDNEY FAILURE, UNSPECIFIED (3) Acute and chronic respiratory failure Code(s): J96.20 - ACUTE AND CHR RESP FAILURE, UNSP W HYPOXIA OR HYPERCAPNIA (4) COPD (chronic obstructive pulmonary disease) Code(s): J44.9 - CHRONIC OBSTRUCTIVE PULMONARY DISEASE, UNSPECIFIED Qualifiers: COPD type: unspecified COPD Qualified Code(s): J44.9 - Chronic obstructive pulmonary disease, unspecified (5) Laryngeal squamous cell carcinoma Code(s): C32.9 - MALIGNANT NEOPLASM OF LARYNX, UNSPECIFIED Assessment/Plan continue abx will stop abx after mondays dose resp suport rest as per primary team
[2017-07-26] MEDS: AMITRIPTYLINE HCL 75 MG TABLET PO SCH (21:17)
[2017-07-27] MEDS: GABAPENTIN 400 MG CAPSULE (FP) PO SCH ×3 (06:30→21:00)
[2017-07-27] MEDS: ALBUTEROL SO4 0.083% IH SOL 2.5 MG/3 ML VIAL.NEB. NEB SCH ×4 (08:23→21:00)
[2017-07-27] MEDS ORDERED: cefTRIAXone SODIUM 1 GM VIAL ONE (09:10)
[2017-07-27] MEDS ORDERED: PT OWN MED DRAWER 7, Y5N ONE ×2 (09:10→20:52)
[2017-07-27] MEDS ORDERED: DEXTROSE 5%-WATER - 50 ML IVPB ONE (09:10)
[2017-07-27] MEDS: ASPIRIN 81 MG CHEWABLE TABLETS PO SCH (09:18)
[2017-07-27] MEDS: SERTRALINE HCL 50 MG TABLET (FP) PO SCH (09:18)
[2017-07-27] MEDS: METOPROLOL TARTRATE 25 MG TABLET (FP) PO SCH ×2 (09:18→21:00)
[2017-07-27] MEDS: amLODIPine BESYLATE 10 MG TABLET (FP) PO SCH (09:18)
[2017-07-27] MEDS: CEFTRIAXONE 1 GM in DEXTROSE 5%-WATER - 50 ML IVPB SCH (09:18)
[2017-07-27] MEDS: BACITRACIN 15 GM TUBE TOPICAL OINTMENT TP SCH ×2 (09:19→21:00)
[2017-07-27] MEDS: ALLOPURINOL 100 MG TABLET (FP) PO SCH (09:19)
[2017-07-27] MEDS: NYSTATIN POWDER 100,000 UNITS/GM - 15 GM TOPICAL POWDER TP SCH ×2 (09:19→21:02)
--- NOTE | 2017-07-27 12:02 | PN ---
Progress Note, Physician History of Present Illness: pulmonary alert,less congested,-resp distress - Current Medication List Current Medications: Active Medications Acetylcysteine (Mucomyst 20 Oral / Inh Use Only*) 400 mg IH RQID [facility] Albuterol Sulfate (Ventolin 0.083% Nebulizer Soln -) 1 amp NEB RQID [facility] Last Admin: 07/27/17 11:49 Dose: 1 amp Albuterol/Ipratropium (Duoneb -) 1 amp NEB Q4H PRN PRN Reason: SHORTNESS OF BREATH Last Admin: 07/23/17 08:00 Dose: 1 amp Allopurinol (Zyloprim -) 100 mg PO DAILY [facility] Last Admin: 07/27/17 09:19 Dose: 100 mg Amitriptyline HCl (Elavil -) 75 mg PO HS [facility] Last Admin: 07/26/17 21:17 Dose: 75 mg Amlodipine Besylate (Norvasc -) 5 mg PO DAILY [facility] Last Admin: 07/27/17 09:18 Dose: 5 mg Aspirin (Asa -) 81 mg PO DAILY [facility] Last Admin: 07/27/17 09:18 Dose: 81 mg Bacitracin (Bacitracin -) 1 applic TP BID [facility] Last Admin: 07/27/17 09:19 Dose: 1 applic Gabapentin (Neurontin -) 400 mg PO TID [facility] Last Admin: 07/27/17 06:30 Dose: 400 mg Ceftriaxone Sodium 1 gm/ (Dextrose) 50 mls @ 100 mls/hr IVPB DAILY [facility] Last Admin: 07/27/17 09:18 Dose: 100 mls/hr Metoprolol Tartrate (Lopressor -) 25 mg PO BID [facility] Last Admin: 07/27/17 09:18 Dose: 25 mg Nystatin (Nystop Powder -) 1 applic TP BID [facility] Last Admin: 07/27/17 09:19 Dose: Not Given Quetiapine Fumarate (Seroquel Xr -) 200 mg PO HS@2000 [facility] Last Admin: 07/26/17 21:17 Dose: 200 mg Sertraline HCl (Zoloft -) 150 mg PO DAILY [facility] Last Admin: 07/27/17 09:18 Dose: 150 mg - Objective Vital Signs: Vital Signs Temperature 97.8 F 07/27/17 09:13 Pulse Rate 62 07/27/17 09:13 Respiratory Rate 18 07/27/17 09:13 Blood Pressure 110/71 07/27/17 09:13 O2 Sat by Pulse Oximetry (%) 97 07/27/17 08:23 Constitutional: Yes: Well Nourished, Calm Eyes: Yes: WNL HENT: Yes: WNL Neck: Yes: Supple (trach) Cardiovascular: Yes: Regular Rate and Rhythm, S1, S2 Respiratory: Yes: Rhonchi (few scattered sheree rhonchi) Gastrointestinal: Yes: Normal Bowel Sounds, Soft Extremities: Yes: WNL Edema: No Labs: Assessment/Plan Problem List - Problems (1) Dyspnea Code(s): R06.00 - DYSPNEA, UNSPECIFIED (2) Laryngeal squamous cell carcinoma Code(s): C32.9 - MALIGNANT NEOPLASM OF LARYNX, UNSPECIFIED (3) Lung cancer Code(s): C34.90 - MALIGNANT NEOPLASM OF UNSP PART OF UNSP BRONCHUS OR LUNG Qualifiers: Laterality: unspecified laterality Lung location: overlapping sites Qualified Code(s): C34.80 - Malignant neoplasm of overlapping sites of unspecified bronchus and lung Assessment/Plan Shortness of breath resolved NSCLC (Adenocarcinoma) 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
[2017-07-27] MEDS ORDERED: ACETYLCYSTEINE 20% 200MG/ML 4 ML VIAL *FOR ORAL / INH USE ONLY NEB SCH (16:00)
--- NOTE | 2017-07-27 16:09 | PN ---
Progress Note, Physician History of Present Illness: no complaints alert doing well - Current Medication List Current Medications: Active Medications Acetylcysteine (Mucomyst 20 Oral / Inh Use Only*) 400 mg IH RQID [facility] Albuterol Sulfate (Ventolin 0.083% Nebulizer Soln -) 1 amp NEB RQID [facility] Last Admin: 07/27/17 11:49 Dose: 1 amp Albuterol/Ipratropium (Duoneb -) 1 amp NEB Q4H PRN PRN Reason: SHORTNESS OF BREATH Last Admin: 07/23/17 08:00 Dose: 1 amp Allopurinol (Zyloprim -) 100 mg PO DAILY [facility] Last Admin: 07/27/17 09:19 Dose: 100 mg Amitriptyline HCl (Elavil -) 75 mg PO HS [facility] Last Admin: 07/26/17 21:17 Dose: 75 mg Amlodipine Besylate (Norvasc -) 5 mg PO DAILY [facility] Last Admin: 07/27/17 09:18 Dose: 5 mg Aspirin (Asa -) 81 mg PO DAILY [facility] Last Admin: 07/27/17 09:18 Dose: 81 mg Bacitracin (Bacitracin -) 1 applic TP BID [facility] Last Admin: 07/27/17 09:19 Dose: 1 applic Gabapentin (Neurontin -) 400 mg PO TID [facility] Last Admin: 07/27/17 14:31 Dose: 400 mg Ceftriaxone Sodium 1 gm/ (Dextrose) 50 mls @ 100 mls/hr IVPB DAILY [facility] Last Admin: 07/27/17 09:18 Dose: 100 mls/hr Metoprolol Tartrate (Lopressor -) 25 mg PO BID [facility] Last Admin: 07/27/17 09:18 Dose: 25 mg Nystatin (Nystop Powder -) 1 applic TP BID [facility] Last Admin: 07/27/17 09:19 Dose: Not Given Quetiapine Fumarate (Seroquel Xr -) 200 mg PO HS@2000 [facility] Last Admin: 07/26/17 21:17 Dose: 200 mg Sertraline HCl (Zoloft -) 150 mg PO DAILY [facility] Last Admin: 07/27/17 09:18 Dose: 150 mg - Objective Vital Signs: Vital Signs Temperature 98.1 F 07/27/17 15:43 Pulse Rate 69 07/27/17 15:43 Respiratory Rate 20 07/27/17 15:43 Blood Pressure 109/71 07/27/17 15:43 O2 Sat by Pulse Oximetry (%) 97 07/27/17 08:23 Constitutional: Yes: Calm Cardiovascular: Yes: Regular Rate and Rhythm Respiratory: Yes: Regular, CTA Bilaterally Musculoskeletal: Yes: WNL Extremities: Yes: WNL Neurological: Yes: Alert, Oriented Psychiatric: Yes: Alert, Oriented Labs: CBC, BMP 07/25/17 07:10 07/25/17 07:10 INR, PTT INR 1.01 (0.82-1.09) 07/22/17 16:53 Assessment/Plan Problem List - Problems (1) Dyspnea Code(s): R06.00 - DYSPNEA, UNSPECIFIED (2) JOSE (acute kidney injury) Code(s): N17.9 - ACUTE KIDNEY FAILURE, UNSPECIFIED (3) Acute and chronic respiratory failure Code(s): J96.20 - ACUTE AND CHR RESP FAILURE, UNSP W HYPOXIA OR HYPERCAPNIA (4) COPD (chronic obstructive pulmonary disease) Code(s): J44.9 - CHRONIC OBSTRUCTIVE PULMONARY DISEASE, UNSPECIFIED Qualifiers: COPD type: unspecified COPD Qualified Code(s): J44.9 - Chronic obstructive pulmonary disease, unspecified (5) Laryngeal squamous cell carcinoma Code(s): C32.9 - MALIGNANT NEOPLASM OF LARYNX, UNSPECIFIED Assessment/Plan stop abx tomorrow resp support as planned rest continue current mgmt patient improved
--- NOTE | 2017-07-27 17:45 | PN ---
Progress Note, Physician Chief Complaint: AWAKE EATING DINNER PATIENT HAS A BLACK PARTICLE THAT HE COUGHED UP TODAY NOT SURE IF IT WAS A FOOD PARTICLE - Current Medication List Current Medications: Active Medications Acetylcysteine (Mucomyst 20 Oral / Inh Use Only*) 400 mg NEB RQID [facility] Albuterol Sulfate (Ventolin 0.083% Nebulizer Soln -) 1 amp NEB RQID [facility] Last Admin: 07/27/17 11:49 Dose: 1 amp Albuterol/Ipratropium (Duoneb -) 1 amp NEB Q4H PRN PRN Reason: SHORTNESS OF BREATH Last Admin: 07/23/17 08:00 Dose: 1 amp Allopurinol (Zyloprim -) 100 mg PO DAILY [facility] Last Admin: 07/27/17 09:19 Dose: 100 mg Amitriptyline HCl (Elavil -) 75 mg PO HS [facility] Last Admin: 07/26/17 21:17 Dose: 75 mg Amlodipine Besylate (Norvasc -) 5 mg PO DAILY [facility] Last Admin: 07/27/17 09:18 Dose: 5 mg Aspirin (Asa -) 81 mg PO DAILY [facility] Last Admin: 07/27/17 09:18 Dose: 81 mg Bacitracin (Bacitracin -) 1 applic TP BID [facility] Last Admin: 07/27/17 09:19 Dose: 1 applic Gabapentin (Neurontin -) 400 mg PO TID [facility] Last Admin: 07/27/17 14:31 Dose: 400 mg Ceftriaxone Sodium 1 gm/ (Dextrose) 50 mls @ 100 mls/hr IVPB DAILY [facility] Last Admin: 07/27/17 09:18 Dose: 100 mls/hr Metoprolol Tartrate (Lopressor -) 25 mg PO BID [facility] Last Admin: 07/27/17 09:18 Dose: 25 mg Nystatin (Nystop Powder -) 1 applic TP BID [facility] Last Admin: 07/27/17 09:19 Dose: Not Given Quetiapine Fumarate (Seroquel Xr -) 200 mg PO HS@2000 [facility] Last Admin: 07/26/17 21:17 Dose: 200 mg Sertraline HCl (Zoloft -) 150 mg PO DAILY [facility] Last Admin: 07/27/17 09:18 Dose: 150 mg - Objective Vital Signs: Vital Signs Temperature 98.1 F 07/27/17 15:43 Pulse Rate 69 07/27/17 15:43 Respiratory Rate 20 07/27/17 15:43 Blood Pressure 109/71 07/27/17 15:43 O2 Sat by Pulse Oximetry (%) 99 07/27/17 09:00 Constitutional: Yes: Mild Distress Eyes: Yes: WNL HENT: Yes: Other (TRACHEOSTOMY) Cardiovascular: Yes: WNL Respiratory: Yes: Cough, Rhonchi Gastrointestinal: Yes: WNL Genitourinary: Yes: WNL Musculoskeletal: Yes: WNL Extremities: Yes: WNL Edema: No Peripheral Pulses WNL: Yes Integumentary: Yes: WNL Wound/Incision: Yes: Clean/Dry Neurological: Yes: WNL ...Motor Strength: WNL Psychiatric: Yes: WNL Labs: CBC, BMP 07/25/17 07:10 07/25/17 07:10 INR, PTT INR 1.01 (0.82-1.09) 07/22/17 16:53 Problem List - Problems (1) Dyspnea Code(s): R06.00 - DYSPNEA, UNSPECIFIED (2) JOSE (acute kidney injury) Code(s): N17.9 - ACUTE KIDNEY FAILURE, UNSPECIFIED (3) Acute and chronic respiratory failure Code(s): J96.20 - ACUTE AND CHR RESP FAILURE, UNSP W HYPOXIA OR HYPERCAPNIA (4) COPD (chronic obstructive pulmonary disease) Code(s): J44.9 - CHRONIC OBSTRUCTIVE PULMONARY DISEASE, UNSPECIFIED Qualifiers: COPD type: unspecified COPD Qualified Code(s): J44.9 - Chronic obstructive pulmonary disease, unspecified (5) Laryngeal squamous cell carcinoma Code(s): C32.9 - MALIGNANT NEOPLASM OF LARYNX, UNSPECIFIED Assessment/Plan IV ABX PER ID DC PLANNING FOR TOMORROW PULM F/U APPRECIATED OOB TO CHAIR
[2017-07-27] MEDS: AMITRIPTYLINE HCL 75 MG TABLET PO SCH (21:00)
[2017-07-28] MEDS: GABAPENTIN 400 MG CAPSULE (FP) PO SCH ×3 (05:12→21:06)
[2017-07-28] MEDS: ALBUTEROL SO4 0.083% IH SOL 2.5 MG/3 ML VIAL.NEB. NEB SCH (08:00)
[2017-07-28] MEDS: ACETYLCYSTEINE 20% 200MG/ML 4 ML VIAL *FOR ORAL / INH USE ONLY IH SCH ×5 (09:20→16:37)
[2017-07-28] MEDS ORDERED: cefTRIAXone SODIUM 1 GM VIAL ONE (09:38)
[2017-07-28] MEDS ORDERED: PT OWN MED DRAWER 7, Y5N ONE (09:38)
[2017-07-28] MEDS ORDERED: DEXTROSE 5%-WATER - 50 ML IVPB ONE (09:39)
[2017-07-28] MEDS: ALLOPURINOL 100 MG TABLET (FP) PO SCH (10:04)
[2017-07-28] MEDS: CEFTRIAXONE 1 GM in DEXTROSE 5%-WATER - 50 ML IVPB SCH (10:04)
[2017-07-28] MEDS: ASPIRIN 81 MG CHEWABLE TABLETS PO SCH (10:05)
[2017-07-28] MEDS: amLODIPine BESYLATE 10 MG TABLET (FP) PO SCH (10:05)
[2017-07-28] MEDS: METOPROLOL TARTRATE 25 MG TABLET (FP) PO SCH ×2 (10:05→21:06)
[2017-07-28] MEDS: BACITRACIN 15 GM TUBE TOPICAL OINTMENT TP SCH ×2 (10:05→21:07)
[2017-07-28] MEDS: SERTRALINE HCL 50 MG TABLET (FP) PO SCH (10:05)
[2017-07-28] MEDS: NYSTATIN POWDER 100,000 UNITS/GM - 15 GM TOPICAL POWDER TP SCH ×2 (10:06→21:07)
--- NOTE | 2017-07-28 10:11 | PN ---
Progress Note, Physician History of Present Illness: patient doing well no complaints breathing well no issues - Current Medication List Current Medications: Active Medications Acetylcysteine (Mucomyst 20 Oral / Inh Use Only*) 400 mg NEB RQID [facility] Allopurinol (Zyloprim -) 100 mg PO DAILY [facility] Last Admin: 07/28/17 10:04 Dose: 100 mg Amitriptyline HCl (Elavil -) 75 mg PO HS [facility] Last Admin: 07/27/17 21:00 Dose: 75 mg Amlodipine Besylate (Norvasc -) 5 mg PO DAILY [facility] Last Admin: 07/28/17 10:05 Dose: 5 mg Aspirin (Asa -) 81 mg PO DAILY [facility] Last Admin: 07/28/17 10:05 Dose: 81 mg Bacitracin (Bacitracin -) 1 applic TP BID [facility] Last Admin: 07/28/17 10:05 Dose: 1 applic Gabapentin (Neurontin -) 400 mg PO TID [facility] Last Admin: 07/28/17 05:12 Dose: 400 mg Ceftriaxone Sodium 1 gm/ (Dextrose) 50 mls @ 100 mls/hr IVPB DAILY [facility] Last Admin: 07/28/17 10:04 Dose: 100 mls/hr Metoprolol Tartrate (Lopressor -) 25 mg PO BID [facility] Last Admin: 07/28/17 10:05 Dose: 25 mg Nystatin (Nystop Powder -) 1 applic TP BID [facility] Last Admin: 07/28/17 10:06 Dose: Not Given Quetiapine Fumarate (Seroquel Xr -) 200 mg PO HS@2000 [facility] Last Admin: 07/27/17 20:55 Dose: 200 mg Sertraline HCl (Zoloft -) 150 mg PO DAILY [facility] Last Admin: 07/28/17 10:05 Dose: 150 mg - Objective Vital Signs: Vital Signs Temperature 97.9 F 07/28/17 05:00 Pulse Rate 62 07/28/17 05:00 Respiratory Rate 20 07/28/17 05:00 Blood Pressure 120/71 07/28/17 05:00 O2 Sat by Pulse Oximetry (%) 97 07/27/17 21:00 Constitutional: Yes: No Distress, Calm HENT: Yes: Other (trachestomy in pplace) Cardiovascular: Yes: Regular Rate and Rhythm Respiratory: Yes: Regular, CTA Bilaterally, Other Gastrointestinal: Yes: Normal Bowel Sounds, Soft Musculoskeletal: Yes: WNL Extremities: Yes: WNL Neurological: Yes: Alert, Oriented Psychiatric: Yes: Alert, Oriented Labs: CBC, BMP 07/25/17 07:10 07/25/17 07:10 INR, PTT INR 1.01 (0.82-1.09) 07/22/17 16:53 Assessment/Plan Problem List - Problems (1) Dyspnea Code(s): R06.00 - DYSPNEA, UNSPECIFIED (2) JOSE (acute kidney injury) Code(s): N17.9 - ACUTE KIDNEY FAILURE, UNSPECIFIED (3) Acute and chronic respiratory failure Code(s): J96.20 - ACUTE AND CHR RESP FAILURE, UNSP W HYPOXIA OR HYPERCAPNIA (4) COPD (chronic obstructive pulmonary disease) Code(s): J44.9 - CHRONIC OBSTRUCTIVE PULMONARY DISEASE, UNSPECIFIED Qualifiers: COPD type: unspecified COPD Qualified Code(s): J44.9 - Chronic obstructive pulmonary disease, unspecified (5) Laryngeal squamous cell carcinoma Code(s): C32.9 - MALIGNANT NEOPLASM OF LARYNX, UNSPECIFIED Assessment/Plan stopped abx last dose rest continue current mgmt
--- NOTE | 2017-07-28 11:44 | CONSULT ---
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 Larygeal CA/trach dependant -fenestrated #7 patent on 40% trach collar Known to me from Mar 2017 hospitalization. 56 y/o gentleman with h/o Nicotine dependence, HTN, CAD s/p Stenting , hyperlipidemia and recently diagnosed R lung adenocarcinoma who presented for pulmonary resection. 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 Trach was sutured in place. TEP could not be used at that time. When seen bedside, he was mouthing words and writing. There was slight audibility to his speech. I discussed the TEP that was placed. He then took out the inner canula and was able to speak, pressing on the trach when i guess occluded the TEP for improved airflow for speech. However, he cough frequently and looked uncomfortable. I suspect due to pushing the trach against the trachea etc. I called Dr. Dejon Lucero to discuss case. He was seen a couple of weeks ago and evaluated by Jet ro at [facility] re: TEP. I wonder if pt can tolerate d/c of trach tube, maybe widening stoma further, for better functional use of TEP. Would he be able to be followed by Jet Ro at [facility] for further training? I counseled him on speaking in shorter sentences , taking breaths more frequently while speaking, etc. He also needs to learn TEP care, if possible. He is now oriented and a good historian. He eats by mouth, with no TF, however, the GT is still present. History Source: Patient, Medical Record Limitations to Obtaining History: Clinical Condition - Past Medical History Cardiovascular: Yes: CAD, HTN, Hyperlipdemia Pulmonary: Yes: COPD, Other (Lung CA) Gastrointestinal: Yes: GI Bleed Heme/Onc: Yes: Cancer ENT: Yes: Other (Laryngeal Ca) - Advance Directives Advance Directives: Yes: DNR - Smoking History Smoking history: Unknown if ever smoked Have you smoked in the past 12 months: No Aproximately how many cigarettes per day: 6 If you are a former smoker, when did you quit?: 6 - Alcohol/Substance Use Hx Alcohol Use: No History - Admission Reason For Visit: DYSPNEA - Diagnostics X-ray: Report Reviewed - General Mental Status: Alert and Oriented, Awake and Alert, Able to Follow Commands Attention: Intact Ability to Follow Directions: Excellent Head/Neck Control: WFL - Hearing Hearing: Normal Hearing Aide: No With Patient: No Speech Evaluation - Communication Primary Language: CONGOLESE - Speech Production Able to Make Needs Known: Yes: WNL (mouthing words, writing, some esophageal speech with TEP.) - Swallow Evaluation/Bedside Assessment Current Nutritional Intake: Regular, Thin Liquids, G Tube (present, not used.) Facial Symmetry at Rest: Symmetrical Facial Symmetry on Retraction: Symmetrical Against Resistance Opening: Normal Against Resistance Closing: Normal Pucker Lips: Normal Lingual Movement: Normal, Symmetric Lingual Speed of Movement: Normal Lingual Movement Strgth Against Opposition: Normal Lingual Movement Characteristics: Normal A-P Transit: WFL Recommendations - Speech Evaluation, Impression/Plan Impression: TEP functioning but not optimally due to trach anterior to prosthesis. Case Reviewed with Dr. Dejon Lucero. F/u by Dr. Lucero regarding options. Consider d/c G-Tube. Recommended Therapies: Speech (at [facility] if possible, or at [facility] - Disposition Discharge to: Nursing Home Facility - Dysphagia Impressions/Plan Swallowing Skills: WFL
--- NOTE | 2017-07-28 15:16 | PN ---
Progress Note (short form) - Note Progress Note: Awake and alert. Breathing appears comfortable. No acute events overnight. Intake & Output 07/25/17 07/26/17 07/27/17 07/28/17 23:59 23:59 23:59 23:59 Intake Total 1020 1470 1850 285 Balance 1020 1470 1850 285 Last Vital Signs Temp Pulse Resp BP Pulse Ox 98.0 F 69 20 120/81 100 07/28/17 09:00 07/28/17 09:00 07/28/17 09:00 07/28/17 09:00 07/28/17 09:00 Active Medications Acetylcysteine (Mucomyst 20 Oral / Inh Use Only*) 400 mg NEB RQID [facility] Allopurinol (Zyloprim -) 100 mg PO DAILY [facility] Last Admin: 07/28/17 10:04 Dose: 100 mg Amitriptyline HCl (Elavil -) 75 mg PO [facility] Last Admin: 07/27/17 21:00 Dose: 75 mg Amlodipine Besylate (Norvasc -) 5 mg PO DAILY [facility] Last Admin: 07/28/17 10:05 Dose: 5 mg Aspirin (Asa -) 81 mg PO DAILY [facility] Last Admin: 07/28/17 10:05 Dose: 81 mg Bacitracin (Bacitracin -) 1 applic TP BID [facility] Last Admin: 07/28/17 10:05 Dose: 1 applic Gabapentin (Neurontin -) 400 mg PO TID [facility] Last Admin: 07/28/17 14:14 Dose: 400 mg Metoprolol Tartrate (Lopressor -) 25 mg PO BID [facility] Last Admin: 07/28/17 10:05 Dose: 25 mg Nystatin (Nystop Powder -) 1 applic TP BID [facility] Last Admin: 07/28/17 10:06 Dose: Not Given Quetiapine Fumarate (Seroquel Xr -) 200 mg PO HS@1999 [facility] Last Admin: 07/27/17 20:55 Dose: 200 mg Sertraline HCl (Zoloft -) 150 mg PO DAILY [facility] Last Admin: 07/28/17 10:05 Dose: 150 mg Constitutional: Yes: Awake and alert, NAD Eyes: Yes: WNL HENT: Yes: WNL Neck: Yes: Supple (trach) Cardiovascular: Yes: Regular Rate and Rhythm, S1, S2 Respiratory: Yes: few scattered Rhonchi Gastrointestinal: Yes: Normal Bowel Sounds, Soft Extremities: Yes: WNL Edema: No Labs: Assessment/Plan Problem List - Problems (1) Dyspnea Code(s): R06.00 - DYSPNEA, UNSPECIFIED (2) Laryngeal squamous cell carcinoma Code(s): C32.9 - MALIGNANT NEOPLASM OF LARYNX, UNSPECIFIED (3) Lung cancer Code(s): C34.90 - MALIGNANT NEOPLASM OF UNSP PART OF UNSP BRONCHUS OR LUNG Qualifiers: Laterality: unspecified laterality Lung location: overlapping sites Qualified Code(s): C34.80 - Malignant neoplasm of overlapping sites of unspecified bronchus and lung Assessment/Plan Shortness of breath resolved NSCLC (Adenocarcinoma) Pyriform Sinus Squamous Cell Ca s/p Pharyngolaryngectomy s/p Tracheostomy COPD Chronic Bronchitis - BD TX - Trach collar as needed - Off ABX per ID - VTE prophylaxis - Ambulate/PT - D/C planning Dr Esquivel
--- NOTE | 2017-07-28 15:50 | DS ---
Physical Examination Vital Signs: Vital Signs Temperature 97.9 F 07/28/17 15:31 Pulse Rate 71 07/28/17 15:31 Respiratory Rate 21 07/28/17 15:31 Blood Pressure 109/68 07/28/17 15:31 O2 Sat by Pulse Oximetry (%) 100 07/28/17 09:00 Findings/Remarks: awake alert comfortable Constitutional: Yes: No Distress Eyes: Yes: WNL HENT: Yes: Other (TRACHEOSTOMY) Cardiovascular: Yes: WNL Respiratory: Yes: Other Gastrointestinal: Yes: WNL Renal/: Yes: WNL Musculoskeletal: Yes: WNL Extremities: Yes: WNL Edema: No Peripheral Pulses WNL: Yes Integumentary: Yes: WNL Wound/Incision: Yes: Clean/Dry Neurological: Yes: WNL ...Motor Strength: LLE, RLE Psychiatric: Yes: Other Labs: CBC, BMP 07/25/17 07:10 07/25/17 07:10 Discharge Summary Reason For Visit: DYSPNEA Current Active Problems Dyspnea (Acute) SQUAMOUS LARYNGEAL CANCER Hospital Course: ADMITTED FOR IV ABX, LARYNGEAL CANCER WITH TRACHEOSTOMY PULMONARY WORKUP. Condition: Fair - Instructions Diet, Activity, Other Instructions: DYSPHAGIA DIET GTUBE NEEDS REMOVAL Referrals: Darryl Sherman MD [Primary Care Provider] - Disposition: [facility] - Home Medications Comprehensive Discharge Medication List: Ambulatory Orders Sertraline HCl [Zoloft] 150 mg PO DAILY 12/23/16 Allopurinol [Zyloprim -] 100 mg PO DAILY 02/12/17 Aspirin [ASA -] 81 mg PO DAILY 02/12/17 Bacitracin - [Bacitracin Topical Ointment -] 1 applic TP BID #4 tube 04/09/17 Gabapentin [Neurontin -] 400 mg PO TID #90 capsule 04/09/17 Metoprolol Tartrate [Lopressor -] 25 mg PO BID #60 tablet 04/09/17 Nystatin Powder [Nystop Powder -] 1 applic TP BID #1 applic 04/09/17 Albuterol 2.5/Ipratropium 0.5 [Duoneb -] 1 amp NEB Q6H 07/22/17 Allopurinol [Zyloprim -] 100 mg PO DAILY 07/22/17 Amitriptyline HCl 75 mg PO HS 07/22/17 Amlodipine Besylate [Norvasc -] 5 mg PO DAILY 07/22/17 Quetiapine Fumarate "Xr" [Seroquel XR] 200 mg PO HS@199907/22/17
[2017-07-28] MEDS: AMITRIPTYLINE HCL 75 MG TABLET PO SCH (21:06)
[2017-07-29] MEDS: GABAPENTIN 400 MG CAPSULE (FP) PO SCH (06:25)
[2017-07-29 08:52] VITALS: BP 119/61; PULSE 71; TEMP 97.3
[2017-07-29] MEDS ORDERED: PT OWN MED DRAWER 7, Y5N ONE (09:25)
[2017-07-29] MEDS: BACITRACIN 15 GM TUBE TOPICAL OINTMENT TP SCH (10:10)
[2017-07-29] MEDS: ASPIRIN 81 MG CHEWABLE TABLETS PO SCH (10:10)
[2017-07-29] MEDS: ALLOPURINOL 100 MG TABLET (FP) PO SCH (10:11)
[2017-07-29] MEDS: SERTRALINE HCL 50 MG TABLET (FP) PO SCH (10:11)
[2017-07-29] MEDS: amLODIPine BESYLATE 10 MG TABLET (FP) PO SCH (10:11)
[2017-07-29] MEDS: METOPROLOL TARTRATE 25 MG TABLET (FP) PO SCH (10:11)
[2017-07-29] MEDS: NYSTATIN POWDER 100,000 UNITS/GM - 15 GM TOPICAL POWDER TP SCH (10:11)
== END 2017-07-29 11:06 | DRG 133 ==
LOC: JER 16:26 → JERBED 19:19 → J5S 22:51 → OBSVTOIN 07-23 12:30
PROVIDERS: ADMIT Internal Medicine; ATTEND Family Medicine
PROC: 3E0F7GC Introduction of Other Therapeutic Substance into Respiratory Tract, Via Natural or Artificial Opening (ICD-10-PCS; principal; 2017-07-23)
DX: J96.20 Acute and chronic respiratory failure, unspecified whether with hypoxia or hypercapnia (principal); I25.10 Atherosclerotic heart disease of native coronary artery without angina pectoris; F41.8 Other specified anxiety disorders; E78.00 Pure hypercholesterolemia, unspecified; I10 Essential (primary) hypertension; R06.00 Dyspnea, unspecified; C32.9 Malignant neoplasm of larynx, unspecified; C34.90 Malignant neoplasm of unspecified part of unspecified bronchus or lung; J42 Unspecified chronic bronchitis; N17.9 Acute kidney failure, unspecified; J44.9 Chronic obstructive pulmonary disease, unspecified; Z93.0 Tracheostomy status; Z96.641 Presence of right artificial hip joint; Z95.5 Presence of coronary angioplasty implant and graft; Z66 Do not resuscitate
CPT/HCPCS: 36415; 36600; 71045-TC-FY; 80048; 80053; 82375; 82550; 82803; 83050; 83735; 84100; 84484; 85025; 85027; 85610; 85730; 93005; 93010; 94640; 97116-GP; 97161-GP; 99284-25; G0378; J7620

== ENCOUNTER 2017-08-11 22:34 | Emergency (ER) | payer OTHER ==
[2017-08-11 22:48] VITALS: BP 98/66; PULSE 78; TEMP 97.8; BMI 26.2
--- NOTE | 2017-08-12 00:24 | PDOC ---
History of Present Illness - General History Source: Patient Exam Limitations: No Limitations - History of Present Illness Initial Comments: 08/12/17 01:13 The patient is a 57 year old male with a significant PMH of lung CA, CAD, HTN, hyperlipidemia, COPD (s/p trach), GI bleed, depression, and anxiety who presents to the emergency department from [facility] for evaluation of G tube replacement. The patient has a trach but can speak slowly. He states he was taking a shower earlier today when his feeding tube fell out. The patient reports he does not know the size of the feeding tube. The patient denies pain or other complaints. The patient denies chest pain, shortness of breath, headache and dizziness. Denies fever, chills, nausea, vomit, diarrhea and constipation. Denies dysuria, frequency, urgency and hematuria. Allergies: NKDA Past surgical history: Cardiac stents. Right hip replacement. Social history: Former smoker. No reported alcohol or drug use. PCP: Not on Staff. <Felix Nassar - Last Filed: 08/12/17 02:01> - General History Source: Patient <Yves Ha - Last Filed: 08/12/17 02:29> - General Chief Complaint: G Tube Problem Stated Complaint: G TUBE DISPLACEMENT Time Seen by Provider: 08/12/17 00:16 Past History <Felix Nassar - Last Filed: 08/12/17 02:01> - Past Medical History Cancer: Yes (malignant neoplasem of bronchus and lung) Cardiac Disorders: Yes (CAD) COPD: Yes (trach) GI Disorders: Yes (h/o GI Bleed) Disorders: No HTN: Yes Hypercholesterolemia: Yes Liver Disease: No Psychiatric Problems: Yes (DEPRESSION, ANXIETY) Thyroid Disease: No - Surgical History Cardiac Surgery: Yes (cardiac stents ~ 2015) Orthopedic Surgery: Yes (RIGHT HIP REPLACEMENT) - Suicide/Smoking/Psychosocial Hx Smoking History: Former smoker Have you smoked in the past 12 months: No Number of Cigarettes Smoked Daily: 6 If you are a former smoker, when did you quit?: 6 Information on smoking cessation initiated: No 'Breaking Loose' booklet given: 02/11/17 Hx Alcohol Use: No Drug/Substance Use Hx: No Substance Use Type: None Hx Substance Use Treatment: Yes <Yves Ha - Last Filed: 08/12/17 02:29> - Past Medical History Allergies/Adverse Reactions: Allergies Allergy/AdvReac Type Severity Reaction Status Date / Time No Known Drug Allergies Allergy Verified 08/11/17 22:45 Home Medications: Ambulatory Orders Sertraline HCl [Zoloft] 150 mg PO DAILY 12/23/16 Aspirin [ASA -] 81 mg PO DAILY 02/12/17 Bacitracin - [Bacitracin Topical Ointment -] 1 applic TP BID #4 tube 04/09/17 Gabapentin [Neurontin -] 400 mg PO TID #90 capsule 04/09/17 Metoprolol Tartrate [Lopressor -] 25 mg PO BID #60 tablet 04/09/17 Allopurinol [Zyloprim -] 100 mg PO DAILY 07/22/17 Amitriptyline HCl 75 mg PO HS 07/22/17 Amlodipine Besylate [Norvasc -] 5 mg PO DAILY 07/22/17 Quetiapine Fumarate "Xr" [Seroquel XR] 200 mg PO HS@199907/22/17 Albuterol 0.083% Nebulizer Va [Ventolin 0.083%] 1 neb NEB QID PRN 07/31/17 Trazodone HCl 100 mg PO HS 07/31/17 Review of Systems - Review of Systems Able to Perform ROS?: Yes Comments:: 08/12/17 01:14 CONSTITUTIONAL: Absent: fever, chills, diaphoresis, generalized weakness, malaise, loss of appetite HEENT: Absent: rhinorrhea, nasal congestion, throat pain, throat swelling, difficulty swallowing, mouth swelling, ear pain, eye pain, visual Changes CARDIOVASCULAR: Absent: chest pain, syncope, palpitations, irregular heart rate, lightheadedness , peripheral edema RESPIRATORY: Absent: cough, shortness of breath, dyspnea with exertion, orthopnea, wheezing, stridor, hemoptysis GASTROINTESTINAL: Absent: abdominal pain, abdominal distension, nausea, vomiting, diarrhea, constipation, melena, hematochezia GENITOURINARY: Absent: dysuria, frequency, urgency, hesitancy, hematuria, flank pain, genital pain MUSCULOSKELETAL: Absent: myalgia, arthralgia, joint swelling SKIN: Absent: rash, itching, pallor HEMATOLOGIC/IMMUNOLOGIC: Absent: easy bleeding, easy bruising, lymphadenopathy, frequent infections ENDOCRINE: Absent: unexplained weight gain, unexplained weight loss, heat intolerance, cold intolerance NEUROLOGIC: Absent: headache, focal weakness or paresthesias, dizziness, unsteady gait, seizure, mental status changes, bladder or bowel incontinence PSYCHIATRIC: Absent: anxiety, depression, suicidal or homicidal ideation, hallucinations. <Felix Nassar - Last Filed: 08/12/17 02:01> *Physical Exam - Vital Signs Last Vital Signs Temp Pulse Resp BP Pulse Ox 97.8 F 78 18 98/66 95 08/11/17 22:42 08/11/17 22:42 08/11/17 22:42 08/11/17 22:42 08/11/17 22:42 - Physical Exam Comments: 08/12/17 01:14 GENERAL: Well developed, well nourished. Awake and alert. No acute distress. HEENT: Normocephalic, atraumatic. PERRLA, EOMI. No conjunctival pallor. Sclera are non- icteric. Moist mucous membranes. Oropharynx is clear. NECK: (+) Trach in place. Stoma of feeding tube site looks clean dry, intact. Supple. Full ROM. No JVD. Carotid pulses 2+ and symmetric, without bruits. No thyromegaly. No lymphadenopathy. CARDIOVASCULAR: Regular rate and rhythm. No murmurs, rubs, or gallops. Distal pulses are 2+ and symmetric. PULMONARY: No evidence of respiratory distress. Lungs clear to auscultation bilaterally. No wheezing, rales or rhonchi. ABDOMINAL: Soft. Non-tender. Non-distended. No rebound or guarding. No organomegaly. Normoactive bowel sounds. MUSCULOSKELETAL Normal range of motion at all joints. No bony deformities or tenderness. No CVA tenderness. EXTREMITIES: No cyanosis. No clubbing. No edema. No calf tenderness. SKIN: Warm and dry. Normal capillary refill. No rashes. No jaundice. NEUROLOGICAL: Alert, awake, appropriate. Cranial nerves 2-12 intact. No deficits to light touch and temperature in face, upper extremities and lower extremities. No motor deficits in the in face, upper extremities and lower extremities. Normoreflexic in the upper and lower extremities. Normal speech. Toes are downgoing bilaterally. Gait is normal without ataxia. PSYCHIATRIC: Cooperative. Good eye contact. Appropriate mood and affect. <Feilx Nassar - Last Filed: 08/12/17 02:01> - Vital Signs Last Vital Signs Temp Pulse Resp BP Pulse Ox 97.8 F 78 18 98/66 95 08/11/17 22:42 08/11/17 22:42 08/11/17 22:42 08/11/17 22:42 08/11/17 22:42 <Yves Ha - Last Filed: 08/12/17 02:29> Medical Decision Making - Medical Decision Making 08/12/17 01:14 Feeding tubes replaced by a 20F [employer] <Felix Nassar - Last Filed: 08/12/17 02:01> - Medical Decision Making 08/12/17 02:28 Dr. Ha: The scribe's documentation has been prepared under my direction and personally reviewed by me in its entirery. I confirm that the note above accurately reflects all work, treatment, procedures, and medical decision making performed by me. Feeding tube appears in place. Pt to go back ti [facility]. <Yves Ha - Last Filed: 08/12/17 02:29> *DC/Admit/Observation/Transfer - Attestations Scribe Attestion: 08/12/17 01:14 Documentation prepared by Felix Nassar, acting as biomedical engineering technician for Yves Ha DO. <Felix Nassar - Last Filed: 08/12/17 02:01> - Discharge Dispostion Admit: No <Yves Ha - Last Filed: 08/12/17 02:29> Diagnosis at time of Disposition: Encounter for feeding tube placement - Discharge Dispostion Disposition: HOME Condition at time of disposition: Stable - Referrals Referrals: ON STAFF,NOT [Primary Care Provider] - - Patient Instructions Printed Discharge Instructions: DI for Feeding Tube Exchange, How to Use Your Feeding Tube - Post Discharge Activity
== END 2017-08-12 03:18 ==
LOC: JER 22:34
PROC: 0D20XUZ Change Feeding Device in Upper Intestinal Tract, External Approach (ICD-10-PCS; principal; 2017-08-11)
DX: Z43.1 Encounter for attention to gastrostomy (principal); I25.10 Atherosclerotic heart disease of native coronary artery without angina pectoris; I10 Essential (primary) hypertension; Z95.5 Presence of coronary angioplasty implant and graft; Z87.891 Personal history of nicotine dependence; J44.9 Chronic obstructive pulmonary disease, unspecified; F41.9 Anxiety disorder, unspecified; F32.9 Major depressive disorder, single episode, unspecified; Z93.0 Tracheostomy status; C34.90 Malignant neoplasm of unspecified part of unspecified bronchus or lung; Z96.641 Presence of right artificial hip joint
CPT/HCPCS: 43760; 74018-TC-FY; 99283-25

== ENCOUNTER 2018-09-21 17:13 | Inpatient (IN) | payer OTHER | END 2018-09-25 17:01 | LOC: J4S 09-22 00:43 → JER 17:13 → JERBED 20:02 ==